=== PATIENT | male | born 1970 | race Caucasian/White ===

== ENCOUNTER → 2019-01-28 | Outpatient (CLI) | payer OTHER ==
[~2019-01-28] MED LIST: AUGM500T34 PO; BACT800T5 PO; DOXY150C PO; IBUP80TA PO; LASI40TA9 PO; NICO21DI3 TD; PERCOCET PO; TYLE325T5 PO
--- NOTE | 2019-01-28 11:24 | REP ---
Clinical: Right hip pain without trauma. Technique: Neutral and frog lateral views of the right hip. Findings: Very subtle spurring along the acetabular margin is appreciated. No further significant arthritic or degenerative changes are identified. No acute fracture dislocation. Surrounding soft tissues are otherwise normal. Impression: Minimal degenerative changes suspected. Electronically Signed by Aaron Elizabeth MD 01/28/2019 11:15 A
== END ==
LOC: M RAD 10:50
PROVIDERS: ATTEND Family Medicine
DX: M25.551 Pain in right hip (principal)

== ENCOUNTER → 2019-02-06 | Outpatient (REF) | payer OTHER, SELFPAY ==
[2019-02-06 19:34] LABS: BASO # 0.1 10^3/uL (0.0-0.2); BASO % 0.5 % (0.0-1.0); EOS # 0.1 10^3/uL (0.0-0.50); EOS % 1.3 % (0.0-3.0); HEMATOCRIT 52.8 % (42.0-52.0); HEMOGLOBIN 16.8 g/dl (13.5-17.5); LYMPH # 3.2 10^3/uL (1.5-4.5); LYMPH % 28.4 % (24.0-44.0); MEAN CORPUSCULAR HEMOGLOBIN 29.9 pg (27.0-33.0); MEAN CORPUSCULAR HGB CONC 31.8 g/dl (32.0-36.5); MONO # 0.8 10^3/uL (0.0-0.8); MONO % 6.8 % (0.0-5.0); NEUTROPHILS % 62.3 % (36.0-66.0); PLATELET COUNT, AUTOMATED 184 10^3/uL (150-450); RED BLOOD COUNT 5.62 10^6/uL (4.30-6.10); WHITE BLOOD COUNT 11.2 10^3/uL (4.0-10.0)
[2019-02-06 19:43] LABS: HEMOGLOBIN A1c 5.6 %
[2019-02-06 19:54] LABS: ALBUMIN 3.5 GM/DL (3.2-5.2); ALT/SGPT 25 U/L (12-78); BILIRUBIN,TOTAL 0.2 MG/DL (0.2-1.0); BLOOD UREA NITROGEN 15 MG/DL (7-18); CALCIUM LEVEL 9.1 MG/DL (8.5-10.1); CARBON DIOXIDE LEVEL 29 MEQ/L (21-32); CHLORIDE LEVEL 107 MEQ/L (98-107); CHOLESTEROL LEVEL 156 MG/DL (<200); CHOLESTEROL RISK RATIO 4.105 (<5); CREATININE FOR GFR 1.18 MG/DL (0.70-1.30); FREE T4 0.98 NG/DL (0.76-1.46); GLOMERULAR FILTRATION RATE > 60.0 (>60); GLUCOSE, FASTING 72 MG/DL (70-100); HDL CHOLESTEROL 38 MG/DL (>40); LDL CHOLESTEROL 102 MG/DL (<100); NON-HDL-C 118 MG/DL; POTASSIUM SERUM 4.9 MEQ/L (3.5-5.1); SODIUM LEVEL 141 MEQ/L (136-145); TOTAL PROTEIN 7.6 GM/DL (6.4-8.2); TRIGLYCERIDES LEVEL 79 MG/DL (<150)
[2019-02-06 19:58] LABS: TOTAL 25(OH) VITAMIN D 13.6 NG/ML (30.0-100.0)
[2019-02-09 00:06] LABS: Lyme Disease IgG/IgM Antibodie <0.91 ISR (0.00-0.90); Lyme Disease IgM Ab Quantitati <0.80 index (0.00-0.79)
== END ==
LOC: M LAB REF 17:14
PROVIDERS: ATTEND Family Medicine
DX: Z13.228 Encounter for screening for other metabolic disorders (principal)

== ENCOUNTER → 2019-06-16 | Outpatient (REF) | payer OTHER ==
[2019-06-16 19:08] LABS: ALBUMIN 3.2 GM/DL (3.2-5.2); ALT/SGPT 13 U/L (12-78); BILIRUBIN,TOTAL 0.4 MG/DL (0.2-1.0); BLOOD UREA NITROGEN 13 MG/DL (7-18); CALCIUM LEVEL 8.7 MG/DL (8.5-10.1); CARBON DIOXIDE LEVEL 25 MEQ/L (21-32); CHLORIDE LEVEL 109 MEQ/L (98-107); CREATININE FOR GFR 1.01 MG/DL (0.70-1.30); GLOMERULAR FILTRATION RATE > 60.0 (>60); GLUCOSE, FASTING 83 MG/DL (70-100); POTASSIUM SERUM 5.3 MEQ/L (3.5-5.1); SODIUM LEVEL 140 MEQ/L (136-145)
[2019-06-16 19:25] LABS: HEMOGLOBIN A1c 5.6 %
== END ==
LOC: M LAB REF 16:25
PROVIDERS: ATTEND Family Medicine
DX: R73.03 Prediabetes (principal)

== ENCOUNTER → 2019-10-31 | Outpatient (REF) | payer OTHER ==
[2019-10-31 13:05] LABS: ALBUMIN 3.2 GM/DL (3.2-5.2); ALT/SGPT 22 U/L (12-78); BILIRUBIN,TOTAL 0.2 MG/DL (0.2-1.0); BLOOD UREA NITROGEN 15 MG/DL (7-18); CALCIUM LEVEL 8.5 MG/DL (8.5-10.1); CARBON DIOXIDE LEVEL 26 MEQ/L (21-32); CHLORIDE LEVEL 108 MEQ/L (98-107); GLOMERULAR FILTRATION RATE > 60.0 (>60); GLUCOSE, FASTING 206 MG/DL (70-100); POTASSIUM SERUM 4.2 MEQ/L (3.5-5.1); SODIUM LEVEL 140 MEQ/L (136-145); TOTAL PROTEIN 6.8 GM/DL (6.4-8.2)
[2019-10-31 17:03] LABS: HEMOGLOBIN A1c 6.1 %
== END ==
LOC: M LAB REF 12:22
PROVIDERS: ATTEND Family Medicine
DX: R73.03 Prediabetes (principal)

== ENCOUNTER 2020-01-23 11:51 | Emergency (ER) | payer OTHER ==
[~2020-01-23] VITALS: Ht 185.4 cm; Wt 181.8 kg
[2020-01-23] MEDS ORDERED: PERCOCET 5MG/325MG TAB PO ONE (14:30)
--- NOTE | 2020-01-23 16:49 | REP ---
LEFT KNEE SERIES: FIVE VIEWS. HISTORY: Pain. FINDINGS: Five views of the left knee demonstrate nonarticular spurring of the superior pole of the left knee. A normal fabella is present. No sunrise view is included. There is no visible fracture or subluxation. IMPRESSION: Nonarticular spurring at the superior pole of the left patella. The patient apparently unable to be positioned for sunrise view. No fracture or subluxation seen. Electronically Signed by Osbaldo Sahu MD 01/23/2020 06:01 P
[2020-01-23 16:50] LABS: BASO # 0.1 10^3/uL (0.0-0.2); BASO % 0.6 % (0.0-1.0); EOS # 0.3 10^3/uL (0.0-0.5); EOS % 2.1 % (0.0-3.0); HEMATOCRIT 46.6 % (42.0-52.0); HEMOGLOBIN 14.8 g/dl (13.5-17.5); LYMPH # 3.1 10^3/uL (1.5-5.0); LYMPH % 19.9 % (24.0-44.0); MEAN CORPUSCULAR HEMOGLOBIN 27.6 pg (27.0-33.0); MEAN CORPUSCULAR HGB CONC 31.8 g/dl (32.0-36.5); MEAN CORPUSCULAR VOLUME 86.9 fl (80.0-96.0); MONO # 0.9 10^3/uL (0.0-0.8); MONO % 5.9 % (0.0-5.0); PLATELET COUNT, AUTOMATED 124 10^3/uL (150-450); RED BLOOD COUNT 5.36 10^6/uL (4.30-6.10); WHITE BLOOD COUNT 15.7 10^3/uL (4.0-10.0)
--- NOTE | 2020-01-23 16:50 | REP ---
LEFT HIP: TWO VIEWS. HISTORY: Pain in the left hip. FINDINGS: There are three metallic pins in the left femoral neck in good position. Femoral head is smooth and rounded and hip joint spaces preserved. Periarticular soft tissues are unremarkable. No erosive changes seen. IMPRESSION: No acute abnormality. Status post orthopedic pinning of the left hip. Electronically Signed by Osbaldo Sahu MD 01/23/2020 06:01 P
[2020-01-23] MEDS ORDERED: ISOVUE-370 76% 100ML VIAL As Ordered ONE (17:03)
--- NOTE | 2020-01-23 17:45 | REPVR ---
PROCEDURE INFORMATION: Exam: CT Angiography Chest With Contrast Exam date and time: 01/23/2020 5:30 PM Age: 49 years old Clinical indication: Chest pain; Additional info: Dvt, SOB, R/O pe TECHNIQUE: Imaging protocol: Computed tomographic angiography of the chest with intravenous contrast. 3D rendering: MIP and/or 3D reconstructed images were created by the technologist. Radiation optimization: All CT scans at this facility use at least one of these dose optimization techniques: automated exposure control; mA and/or kV adjustment per patient size (includes targeted exams where dose is matched to clinical indication); or iterative reconstruction. Contrast material: ISO 370; Contrast volume: 100 ml; Contrast route: IV; COMPARISON: CR Chest, 2 view PA, Lat 05/03/2015 7:40 PM FINDINGS: Pulmonary arteries: Abnormal intraluminal filling defects are present within bilateral distal main pulmonary arteries, intralobar segments and segmental branches of all major bilateral arterial lobar distributions. No saddle embolus. Aorta: No thoracic aortic aneurysm or dissection. Lungs: Pulmonary vascular/interstitial pattern does not suggest active pulmonary edema. No suspicious lung mass or air space process. No central endobronchial lesion. Pleural space: No pleural effusion or pneumothorax. Heart: No cardiac enlargement or interventricular septal deviation to suggest right heart strain. Mediastinum: Hiatal hernia measuring 5 cm is present. Lymph nodes: Small, nonspecific mediastinal nodes are present. Bones/joints: Bony structures show no acute fracture or destructive process. IMPRESSION: 1. Extensive acute pulmonary emboli with bilateral distal main pulmonary artery emboli, and segmental emboli within all major lobar distributions. 2. No evidence of right heart strain or pulmonary infarct. 3. Hiatal hernia measuring 5 cm Electronically signed by: Robert Celaya On 01/23/2020 17:44:45 PM
--- NOTE | 2020-01-23 17:51 | REP ---
LEFT LOWER EXTREMITY DUPLEX DOPPLER VENOUS ULTRASOUND: Real-time compression and duplex Doppler interrogation of left lower extremity deep venous system is performed. There is diffuse thrombus occluding the common femoral vein, superficial femoral vein, and popliteal vein. IMPRESSION: Diffuse occlusive thrombus involving the left common femoral, superficial femoral, and popliteal veins. Electronically Signed by Oziel Blackburn MD 01/24/2020 09:19 A
[2020-01-23] MEDS ORDERED: HEPARIN DRIP 25,000 UNITS in IV 1 EA IV SCH (18:54)
[2020-01-23 18:58] LABS: INR 1.11
[2020-01-23 18:59] LABS: PARTIAL THROMBOPLASTIN TIME 22.9 SECONDS (25.0-38.4)
[2020-01-23] MEDS ORDERED: HEPARIN SOD (PORCINE) 5000UNITS/ML VIAL (J1644 PER 1000UNITS) IV ONE (19:00)
[2020-01-23 19:18] LABS: CK-MB VALUE MASS 1.3 NG/ML (<3.6); MB/CK RELATIVE INDEX 0.36 (< OR =4)
[2020-01-23 19:56] LABS: TROPONIN I 0.1 NG/ML (< 0.10)
[2020-01-23 20:20] VITALS: BP 103/58
[2020-01-23 21:14] LABS: POTASSIUM SERUM 9.8 MEQ/L (3.5-5.1)
--- NOTE | 2020-01-24 07:55 | ECGEPIP ---
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
== END 2020-01-23 20:26 | disposition short-term general hospital (02) ==
LOC: EDBD 11:51 → M ED 11:51
DX: I82.412 Acute embolism and thrombosis of left femoral vein (principal); I82.432 Acute embolism and thrombosis of left popliteal vein; I26.99 Other pulmonary embolism without acute cor pulmonale; K44.9 Diaphragmatic hernia without obstruction or gangrene; M17.12 Unilateral primary osteoarthritis, left knee; M25.552 Pain in left hip; M25.562 Pain in left knee; R06.02 Shortness of breath; E66.01 Morbid (severe) obesity due to excess calories; Z68.43 Body mass index [BMI] 50.0-59.9, adult; Z88.8 Allergy status to other drugs, medicaments and biological substances; Z79.899 Other long term (current) drug therapy
CPT/HCPCS: 71275; 73502; 73564; 80047; 82550; 82553; 85025; 85610; 85730; 93005; 93041; 93971; 96365; 99285; J1644; Q9967

== ENCOUNTER → 2020-02-07 | Outpatient (REF) | payer OTHER ==
[2020-02-07 13:14] LABS: BASO # 0.1 10^3/uL (0.0-0.2); BASO % 0.6 % (0.0-1.0); EOS # 0.3 10^3/uL (0.0-0.5); EOS % 2.6 % (0.0-3.0); HEMOGLOBIN 14.9 g/dl (13.5-17.5); LYMPH # 2.4 10^3/uL (1.5-5.0); LYMPH % 24.5 % (24.0-44.0); MEAN CORPUSCULAR HEMOGLOBIN 28.2 pg (27.0-33.0); MEAN CORPUSCULAR HGB CONC 31.7 g/dl (32.0-36.5); MEAN CORPUSCULAR VOLUME 88.8 fl (80.0-96.0); MONO # 0.6 10^3/uL (0.0-0.8); MONO % 6.1 % (0.0-5.0); NEUTROPHILS # 6.3 10^3/uL (1.5-8.5); NEUTROPHILS % 65.8 % (36.0-66.0); PLATELET COUNT, AUTOMATED 194 10^3/uL (150-450); RED BLOOD COUNT 5.29 10^6/uL (4.30-6.10); WHITE BLOOD COUNT 9.6 10^3/uL (4.0-10.0)
[2020-02-07 13:52] LABS: ALBUMIN 3.1 GM/DL (3.2-5.2); ALT/SGPT 24 U/L (12-78); BILIRUBIN,TOTAL 0.5 MG/DL (0.2-1.0); BLOOD UREA NITROGEN 11 MG/DL (7-18); CALCIUM LEVEL 8.6 MG/DL (8.5-10.1); CARBON DIOXIDE LEVEL 25 MEQ/L (21-32); CHLORIDE LEVEL 109 MEQ/L (98-107); CHOLESTEROL LEVEL 167 MG/DL (<200); CHOLESTEROL RISK RATIO 5.387 (<5); CREATININE FOR GFR 1.25 MG/DL (0.70-1.30); GLOMERULAR FILTRATION RATE > 60.0 (>60); GLUCOSE, FASTING 118 MG/DL (70-100); HDL CHOLESTEROL 31 MG/DL (>40); LDL CHOLESTEROL 111 MG/DL (<100); NON-HDL-C 136 MG/DL; POTASSIUM SERUM 4.2 MEQ/L (3.5-5.1); SODIUM LEVEL 140 MEQ/L (136-145); TOTAL PROTEIN 7.1 GM/DL (6.4-8.2); TRIGLYCERIDES LEVEL 123 MG/DL (<150)
[2020-02-07 14:18] LABS: HEMOGLOBIN A1c 6.5 %
== END ==
LOC: M LAB REF 12:54
PROVIDERS: ATTEND Family Medicine
DX: R73.03 Prediabetes (principal)

== ENCOUNTER → 2020-05-09 | Outpatient (REF) | payer OTHER ==
[~2020-05-09] MED LIST changes: +DOXY100T27 PO; +ELIQ5TAB; +HYDR-3716; +OMEP-221; +VITA50005; +[UNRECOGNIZED DRUG - CODE]
[2020-05-09 17:06] LABS: ALBUMIN 3.5 GM/DL (3.2-5.2); ALT/SGPT 19 U/L (12-78); BILIRUBIN,TOTAL 0.4 MG/DL (0.2-1.0); BLOOD UREA NITROGEN 15 MG/DL (7-18); CALCIUM LEVEL 9.4 MG/DL (8.5-10.1); CARBON DIOXIDE LEVEL 26 MEQ/L (21-32); CHLORIDE LEVEL 108 MEQ/L (98-107); CHOLESTEROL LEVEL 174 MG/DL (<200); CHOLESTEROL RISK RATIO 4.971 (<5); GLOMERULAR FILTRATION RATE > 60.0 (>60); GLUCOSE, FASTING 132 MG/DL (70-100); HDL CHOLESTEROL 35 MG/DL (>40); LDL CHOLESTEROL 115 MG/DL (<100); NON-HDL-C 139 MG/DL; POTASSIUM SERUM 4.3 MEQ/L (3.5-5.1); SODIUM LEVEL 137 MEQ/L (136-145); TOTAL PROTEIN 7.5 GM/DL (6.4-8.2); TRIGLYCERIDES LEVEL 122 MG/DL (<150)
[2020-05-09 17:49] LABS: HEMOGLOBIN A1c 6.4 %
== END ==
LOC: M LAB REF 09:36
PROVIDERS: ATTEND Nurse Practitioner Family
DX: E03.8 Other specified hypothyroidism (principal)

== ENCOUNTER → 2020-05-28 | Outpatient (CLI) | payer OTHER ==
--- NOTE | 2020-05-30 14:02 | SLEEPCENT ---
DATE: 05/28/2020 ORDERED BY: Dr. Sana Butler Nocturnal polysomnography was performed for evaluation of sleep physiology. There was 7 hours and 23 minutes of data reviewed. There was 344 minutes of sleep identified. Sleep latency was short at 5.5 minutes. REM sleep was delayed at 184 minutes. Sleep architecture improved later in the study with application of pressure therapy. Overall sleep efficiency was 78.6%. The electrocardiogram showed a sinus rhythm with a average heart rate of 72 beats per minute. Unifocal ventricular ectopic beats were occasionally seen. EEG showed normal waveforms for wake and sleep. There were 169 respiratory events identified of 10 seconds in duration or greater for an apnea-hypopnea index of 29.5. Having clearly established the presence of obstructive sleep apnea syndrome, testing was stopped shortly before midnight for the application of pressure therapy. The patient was fit with a ResMed Ultra Mirage full-face mask of large size. There was 7 cm of water pressure initially applied to the circuit, and the lights were again extinguished. Sleep architecture improved on pressure therapy, and optimal pressure for the establishment of sleep was 10 cm of water. Remaining measures of sleep physiology were essentially normal. IMPRESSION: Obstructive sleep apnea syndrome (G47.33), apnea-hypopnea index 29.5. RECOMMENDATION: Nightly use of pressure therapy, 10 cm of water. MTDD
== END ==
LOC: M SLEEP 20:00
PROVIDERS: ATTEND Nurse Practitioner Family
DX: G47.33 Obstructive sleep apnea (adult) (pediatric) (principal); R06.83 Snoring

== ENCOUNTER 2020-06-28 01:38 | Emergency (ER) | payer OTHER ==
[~2020-06-28] VITALS: Ht 182.9 cm; Wt 182.4 kg
[~2020-06-28 01:38] MED LIST changes: -DOXY100T27 PO; -ELIQ5TAB; -HYDR-3716; -OMEP-221; -VITA50005; -[UNRECOGNIZED DRUG - CODE]
[2020-06-28] MEDS ORDERED: ELIQ5TAB (02:15)
[2020-06-28] MEDS ORDERED: VITA50005 (02:15)
[2020-06-28] MEDS ORDERED: [UNRECOGNIZED DRUG - CODE] (02:15)
[2020-06-28] MEDS ORDERED: OMEP-221 (02:15)
[2020-06-28] MEDS ORDERED: HYDR-3716 (02:15)
[2020-06-28 02:19] LABS: BASO % 0.4 % (0.0-1.0); EOS # 0.1 10^3/uL (0.0-0.5); EOS % 1.2 % (0.0-3.0); HEMATOCRIT 43.1 % (42.0-52.0); LYMPH # 2.2 10^3/uL (1.5-5.0); LYMPH % 24.5 % (24.0-44.0); MEAN CORPUSCULAR HEMOGLOBIN 26.5 pg (27.0-33.0); MEAN CORPUSCULAR HGB CONC 30.2 g/dl (32.0-36.5); MEAN CORPUSCULAR VOLUME 87.8 fl (80.0-96.0); MONO # 0.5 10^3/uL (0.0-0.8); NEUTROPHILS % 66.9 % (36.0-66.0); RED BLOOD COUNT 4.91 10^6/uL (4.30-6.10)
--- NOTE | 2020-06-28 02:39 | REPVR ---
PROCEDURE INFORMATION: Exam: XR Chest, 1 View Exam date and time: 06/28/2020 2:15 AM Age: 49 years old Clinical indication: Other: Chest pain TECHNIQUE: Imaging protocol: XR of the chest Views: 1 view. COMPARISON: CT ANGIO CHEST 01/23/2020 5:19 PM FINDINGS: Lungs: No focal infiltrates. Pleural space: Unremarkable. No pleural effusion. No pneumothorax. Heart/Mediastinum: Unremarkable. No cardiomegaly. Bones/joints: Unremarkable. Soft tissues: There are generous overlying soft tissues. IMPRESSION: Essentially negative chest. Electronically signed by: Francisco J Wilson On 06/28/2020 02:38:41 AM
[2020-06-28 02:40] LABS: ERYTHROCYTE SEDIMENTATION RATE 14 mm/hr (0-15)
[2020-06-28 03:38] LABS: BLOOD UREA NITROGEN 10 MG/DL (7-18); C REACTIVE PROTEIN QUANTITATIV 3.32 MG/DL (0.00-0.30); CALCIUM LEVEL 7.9 MG/DL (8.5-10.1); CARBON DIOXIDE LEVEL 27 MEQ/L (21-32); CHLORIDE LEVEL 109 MEQ/L (98-107); CREATININE FOR GFR 1.15 MG/DL (0.70-1.30); FREE T4 1.07 NG/DL (0.76-1.46); GLOMERULAR FILTRATION RATE > 60.0 (>60); GLUCOSE, FASTING 142 MG/DL (70-100); NT-PRO BNP 161 PG/ML (<125); POTASSIUM SERUM 4.1 MEQ/L (3.5-5.1); SODIUM LEVEL 141 MEQ/L (136-145)
[2020-06-28] MEDS ORDERED: LASI40TA9 PO (03:48)
[2020-06-28] MEDS ORDERED: DOXY100T27 PO (03:48)
[2020-06-28] MEDS ORDERED: DOXYCYCLINE HYCLATE 100MG TABLET PO ONE (04:00)
[2020-06-28] MEDS ORDERED: FUROSEMIDE 40MG/4ML VIAL (J1940) IV ONE (04:00)
[2020-06-28 04:01] VITALS: BP 124/63
--- NOTE | 2020-06-28 07:32 | ECGEPIP ---
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
== END 2020-06-28 04:11 | disposition home or self-care (01) ==
LOC: M ED 01:38
DX: R22.43 Localized swelling, mass and lump, lower limb, bilateral (principal); L03.90 Cellulitis, unspecified; Z86.718 Personal history of other venous thrombosis and embolism; E66.01 Morbid (severe) obesity due to excess calories; Z79.01 Long term (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s; Z79.899 Other long term (current) drug therapy
CPT/HCPCS: 71045; 80048; 83880; 84439; 84443; 85025; 85652; 86140; 93005; 93041; 94760; 96374; 99285; J1940

== ENCOUNTER 2020-07-08 01:00 | Emergency (ER) | payer OTHER ==
[~2020-07-08] VITALS: Ht 188 cm; Wt 218.2 kg
[~2020-07-08 01:00] MED LIST changes: +DOXY100T27 PO; +ELIQ5TAB; +HYDR-3716; +OMEP-221; +VITA50005; +[UNRECOGNIZED DRUG - CODE]
[2020-07-08 02:15] VITALS: BP 109/61
--- NOTE | 2020-07-08 03:14 | REPVR ---
PROCEDURE INFORMATION: Exam: US Duplex Lower Extremity Veins, Bilateral Exam date and time: 07/08/2020 2:20 AM Age: 49 years old Clinical indication: Pain; Leg, upper and leg, lower; Bilateral; Additional info: Pain, on eliquis for dvt dx 12/2019, ? persisting dvt TECHNIQUE: Imaging protocol: Real-time duplex ultrasound of the extremities with 2-D dewitt scale, color Doppler flow and spectral waveform analysis with image documentation. Complete exam focused on the bilateral lower extremity veins. COMPARISON: US Duplex, Ext,LOWER veins,unilat 2020-01-23 14:48 FINDINGS: Right deep veins: Unremarkable. The common femoral, femoral, proximal profunda femoral and popliteal veins are patent without thrombus. Normal Doppler waveforms. Normal compressibility and/or augmentation response. Right superficial veins: Saphenofemoral junction is patent without thrombus. Left deep veins: Unremarkable. The common femoral, femoral, proximal profunda femoral and popliteal veins are patent without thrombus. Normal Doppler waveforms. Normal compressibility and/or augmentation response. Left superficial veins: Saphenofemoral junction is patent without thrombus. Soft tissues: Soft tissue swelling. IMPRESSION: No evidence of deep vein thrombosis. Electronically signed by: Wero Dickerson On 07/08/2020 03:14:35 AM
[2020-07-08] MEDS ORDERED: DOXYCYCLINE HYCLATE 100MG TABLET PO ONE (03:30)
== END 2020-07-08 03:51 | disposition home or self-care (01) ==
LOC: M ED 01:00
DX: M79.604 Pain in right leg (principal); M79.605 Pain in left leg; I87.2 Venous insufficiency (chronic) (peripheral); Z79.01 Long term (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s; Z79.899 Other long term (current) drug therapy; Z88.8 Allergy status to other drugs, medicaments and biological substances

== ENCOUNTER 2020-10-16 02:30 | Emergency (ER) | payer OTHER ==
[~2020-10-16] VITALS: Ht 185.4 cm; Wt 254.7 kg
--- OUTSIDE RECORDS SUMMARY | 2020-10-16 02:35 | CCD | Continuity of Care Document ---
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 AUTM [phone] Problems Description No Information Available Social History Type Date Description Comments Sex Unknown Tobacco Use Reviewed: 05/14/20 Patient is a current smoker, smokes every day 09/02 ppd Smoking Status Reviewed: 08/02/20 Patient is a current smoker, smokes every day 09/02 ppd Allergies, Adverse Reactions, Alerts Active Allergies Reaction Severity Comments Date Soma Itching 05/14/2020 Medications Active Medications SIG Qnty Indications Ordering Provide r Date CPAP Device 10cm Sana [place] 06/04/2020 Eliquis 5mg Tablets 1 tab by mouth twice a day Unknown Levothyroxine Sodium 1 tab by mouth every day U nknown Omeprazole 40mg Capsules DR 1 cap by mouth every day Unknown SM Nicotine 2mg Lozenges Dissolve One Lozenge Slowly In Mouth Every 2 Hours as Needed Unknown Hydrocodone-Acetaminophen 7.5-325mg Tablets Take One Tablet By Mouth Every 6 Hours Maximum Daily Dose 4 Unknown Immunizations Description No Information Available Vital Signs Date Vital Result Comment 08/02/2020 9:59am BP Systolic 130 mmHg BP Diastolic 80 mmHg Heart Rate 122 /min O2 % BldC Oximetry 97 % Body Temperature 96.8 F Height 73 inches 6'1" Weight 487.00 lb PT States BMI (Body Mass Index) 64.2 kg/m2 [place] Body Weight 184 lb Weight 220.903 kg BSA (Body Surface Area) 3.14 m2 05/14/2020 12:45pm BP Systolic 142 mmHg BP Diastolic 88 mmHg Heart Rate 102 /min O2 % BldC Oximetry 97 % Body Temperature 96.8 F Height 73 inches 6'1" Weight 487.38 lb BMI (Body Mass Index) 64.3 kg/m2 [place] Body Weight 184 lb Neck Circumference in inches 21.5 [place] Score 23 Weight 221.073 kg BSA (Body Surface Area) 3.14 m2 Results Description No Information Available Procedures Description No Information Available Medical Devices Description No Information Available Encounters Type Date Location Provider Dx Diagnosis Office Visit 05/14/2020 1:15p [facility] Pulmonary/Thoracic Jose Butler N.P. R06.83 Snoring R40.0 Somnolence Assessments Date Code Description Provider 08/02/2020 G47.33 Obstructive sleep apnea (adult) (pediatric) Sana Butler N.P. 05/14/2020 R06.83 Snoring Sana Butler N .PKadie 05/14/2020 R40.0 Somnolence Sana Butler, N .P. Plan of Treatment Future Appointment(s):* 10/03/2020 10:45 am - Sana Butler, N.P. at [facility] Pulmonary/Thoracic 08/02/2020 - Sana Butler, N.P.* G47.33 Obstructive sleep apnea (adult) (pediatric) * * Comments:* 1. No changes were made to the CPAP pressure at today's visit. 2. The patient is aware to call with any problems related to CPAP use, snoring through the mask or return of daytime sleepiness. * Follow up:* 1. Follow up in 6-8 weeks to reassess CPAP compliance or sooner should problems develop. Functional Status Functional Condition Comment Date Status Independent with all ADL's Activ e Mental Status Description No Information Available Referrals Refer to Reason for Referral Status Appt Date [facility] Sleep [facility] auth sleep [id number] Closed Sleep Lab [address], [place] [address] [phone]
--- OUTSIDE RECORDS SUMMARY | 2020-10-16 02:35 | CCD ---
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 Name Role Phone Lucy Jensen Unavailable Unavailable Allergies Code Code System Name Reaction Severity Status Onset 20430129 RxNorm Soma Active 03/14/2019 NKDA Medications Name Status Start Date Stop Date doxycycline monohydrate 100 mg capsule TAKE ONE CAPSULE BY MOUTH TWICE A DAY Active N ot available Eliquis 5 mg tablet Active Not availabl e ergocalciferol (vitamin D2) 1,250 mcg (5 0,000 unit) capsule TAKE 1 CAPSULE BY MOUTH ONCE A WEEK Active Not available furosemide 40 mg tablet Active Not avai lable hydrocodone 7.5 mg-acetaminophen 325 mg tablet TAKE ONE TABLET BY MOUTH EVERY 6 HOURS MAXIMUM DAILY DOSE 4 TABLETS Active Not available nicotine (polacrilex) 4 mg gum CHEW ONE PIECE OF GUM BUCCALLY EVERY 2 HOURS Active Not available omeprazole 40 mg capsule,delayed release Active Not available Problems Name Status Onset Date Source Snoring Active 12/09/2018 History Endocrine/metabolic Screening Active 12/09/2018 Hi story Congenital Pes Planus of Left Foot Active 12/09/2018 History Congenital Pes Planus of Right Foot Active 12/09/2018 History Pain of Left Hip Joint Active 12/09/2018 History Pain in Right Hip Joint Active 01/06/2019 History Obesity Active 03/14/2019 History Prediabetes Active 03/14/2019 History Gastroesophageal Reflux Disease Active 08/11/2019 History Localized Edema Active 11/10/2019 History Clinical Finding Active 11/10/2019 History Obstructive Sleep Apnea Syndrome Active 02/05/2020 History Acute Cor Pulmonale Active 02/05/2020 History Hypothyroidism Active 02/15/2020 History Body Mass Index 30+ - Obesity Active 02/15/2020 Hi story Procedure by Method Active 02/15/2020 History Idiopathic Osteoarthritis Active 02/20/2020 Histor y Vitamin D Deficiency Active 06/20/2020 Morbid Obesity Active 06/20/2020 Thromboembolism of Vein Active 06/20/2020 Cigarette Smoker Active 06/20/2020 Procedures Notes: Pin in hip-15years old Results Lab Results None recorded. Past Encounters 07/19/2020 Stasis Dermatitis; Pain in Right Hip Joint John Martinez MD: [address] [place] [address], Ph. 06/20/2020 Obstructive Sleep Apnea Syndrome; Pain in Right Hip Joint; Hypothyroidism; Gastroesophageal Reflux Disease; Localized Edema; Thromboembolism of Vein; Morbid Obesity; Cigarette Smoker; Prediabetes; Vitamin D Deficiency John Martinez MD: [address] [place] [phone], Ph. Social History Tobacco Smoking Status Light Tobacco Smoker (1 PPW) Vaccine List None recorded. Plan of Care Reminders Provider Appointments None recorded. Lab None recorded. Referral None recorded. Procedures None recorded. Surgeries None recorded. Imaging None recorded. Vitals 07/19/2020 09:20AM ESTABLISHED [id number] Height Weight BMI Blood Pressure 74 in 467 lbs 60 kg/m2 111/61 mm[Hg] 06/20/2020 09:00AM ESTABLISHED [id number] Height Weight BMI Blood Pressure 74 in 467 lbs 60 kg/m2 130/84 mm[Hg] 02/15/2020 Height Weight Blood Pressure 74 in 462 lbs 2.08 oz 103/71 mm[Hg] 02/05/2020 Height Weight Blood Pressure 74 in 467 lbs 6.4 oz 121/77 mm[Hg] 01/15/2020 Height Weight Blood Pressure 74 in 466 lbs 9.6 oz 120/84 mm[Hg] 11/20/2019 Weight 470 lbs 11/10/2019 Height Weight Blood Pressure 74 in 469 lbs 4 oz 144/78 mm[Hg] 10/20/2019 Weight 454 lbs 7.04 oz 08/11/2019 Height Weight Blood Pressure 74 in 407 lbs 2.08 oz 92/63 mm[Hg] 06/16/2019 Height Weight Blood Pressure 74 in 402 lbs 4 oz 102/68 mm[Hg] 03/14/2019 Height Weight Blood Pressure 74 in 401 lbs 104/64 mm[Hg] 02/06/2019 Height Weight 74 in 384 lbs 01/06/2019 Height Weight Blood Pressure 73 in 380 lbs 4 oz 114/70 mm[Hg] 12/09/2018 Height Weight Blood Pressure 73 in 343 lbs 6.08 oz 125/77 mm[Hg]
--- OUTSIDE RECORDS SUMMARY | 2020-10-16 02:35 | CCD ---
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 Name Role Phone [facility] 114 [phone] Allergies Code Code System Name Reaction Severity Status Onset 20430129 RxNorm Soma Active 03/14/2019 NKDA Medications Name Status Start Date Stop Date doxycycline monohydrate 100 mg capsule TAKE ONE CAPSULE BY MOUTH TWICE A DAY Completed 10/07/2019 Eliquis 5 mg tablet TAKE ONE TABLET BY MOUTH TWICE A DAY Active No t available ergocalciferol (vitamin D2) 1,250 mcg (5 0,000 unit) capsule TAKE 1 CAPSULE BY MOUTH ONCE A WEEK Active Not available furosemide 40 mg tablet Completed 08/06/20 hydrocodone 7.5 mg-acetaminophen 325 mg tablet Active Not available nicotine (polacrilex) 4 mg [...] Results Lab Results None recorded. Past Encounters 08/06/2020 Acute Cor Pulmonale John Martinez MD: [address] [place] [phone], Ph. 07/19/2020 Stasis Dermatitis; Pain in Right Hip Joint John Martinez MD: [address] [place] [phone], Ph. 06/20/2020 Obstructive Sleep Apnea Syndrome; Pain in Right Hip Joint; Hypothyroidism; Gastroesophageal Reflux Disease; Localized Edema; Thromboembolism of Vein; Morbid Obesity; Cigarette Smoker; Prediabetes; Vitamin D Deficiency John Martinez MD: [address] [place] [phone], Ph. Social History Tobacco Smoking Status Light Tobacco Smoker (1 PPW) Vaccine List Notes: Pt declined flu shot Plan of Care Reminders Provider Appointments None recorded. Lab None recorded. Referral None recorded. Procedures None recorded. Surgeries None recorded. Imaging None recorded. Vitals 08/06/2020 08:40AM ESTABLISHED [id number] Height Weight BMI Blood Pressure 74 in 501 lbs 2 oz 64.3 kg/m2 119/76 mm[Hg] 07/19/2020 09:20AM ESTABLISHED [id number] Height Weight BMI Blood Pressure 74 in 467 lbs 60 kg/m2 111/61 mm[Hg] 06/20/2020 09:00AM ESTABLISHED [id number] Height Weight BMI Blood Pressure 74 in [...]
--- OUTSIDE RECORDS SUMMARY | 2020-10-16 02:36 | CCD ---
Author Author [facility] Organization [facility] Address Unknown Phone Unavailable Care Team Providers Care Development Intern Name Role Phone Taye AMEZCUA Unavailable Unavailable Anika Martinez MD Unavailable Unavailable Anika Martinez MD Unavailable Unavailable Anika Martinez MD Unavailable Unavailable Anika Martinez MD Unavailable Unavailable Anika Martinez MD Unavailable Unavailable Anika Martinez MD Unavailable Unavailable Anika Martinez MD Unavailable Unavailable Anika Martinez MD Unavailable Unavailable Anika Martinez MD Unavailable Unavailable Anika Martinez MD Unavailable Unavailable Anika Martinez MD Unavailable Unavailable Anika Martinez MD Unavailable Unavailable Anika Martinez MD Unavailable Unavailable Anika Martinez MD Unavailable Unavailable Anika Martinez MD Unavailable Unavailable Anika Martinez MD Unavailable Unavailable Anika Martinez MD Unavailable Unavailable Anika Martinez MD Unavailable Unavailable Anika Martinez MD Unavailable Unavailable Anika Martinez MD Unavailable Unavailable Anika Martinez MD Unavailable Unavailable Anika Martinez MD Unavailable Unavailable Anika Martinez MD Unavailable Unavailable Anika Martinez MD Unavailable Unavailable Anika Martinez MD Unavailable Unavailable Anika Martinez MD Unavailable Unavailable Anika Martinez MD Unavailable Unavailable Anika Martinez MD Unavailable Unavailable Anika Martinez MD Unavailable Unavailable Anika Martinez MD Unavailable Unavailable Anika Martinez MD Unavailable Unavailable Anika Martinez MD Unavailable Unavailable Anika Martinez MD Unavailable Unavailable Anika Martinez MD Unavailable Unavailable Anika Martinez MD Unavailable Unavailable Anika Martinez MD Unavailable Unavailable Anika Martinez MD Unavailable Unavailable Anika Martinez MD Unavailable Unavailable Anika Martinez MD Unavailable Unavailable Anika Martinez MD Unavailable Unavailable Anika Martinez MD Unavailable Unavailable Anika Martinez MD Unavailable Unavailable Anika Martinez MD Unavailable Unavailable Anika Martinez MD Unavailable Unavailable Anika Martinez MD Unavailable Unavailable Anika Martinez MD Unavailable Unavailable Anika Martinez MD Unavailable Unavailable Anika Martinez MD Unavailable Unavailable Anika Martinez MD Unavailable Unavailable Anika Martinez MD Unavailable Unavailable Anika Martinez MD Unavailable Unavailable Anika Martinez MD Unavailable Unavailable Anika Martinez MD Unavailable Unavailable Anika Martinez MD Unavailable Unavailable Anika Martinez MD Unavailable Unavailable Anika Martinez MD Unavailable Unavailable Anika Martinez MD Unavailable Unavailable Anika Martinez MD Unavailable Unavailable Anika Martinez MD Unavailable Unavailable Anika Martinez MD Unavailable Unavailable Anika Martinez MD Unavailable Unavailable Anika Martinez MD Unavailable Unavailable Anika Martinez MD Unavailable Unavailable Anika Martinez MD Unavailable Unavailable Anika Martinez MD Unavailable Unavailable Anika Martinez MD Unavailable Unavailable Anika Martinez MD Unavailable Unavailable Anika Martinez MD Unavailable Unavailable Anika Martinez MD Unavailable Unavailable Anika Martinez MD Unavailable Unavailable Anika Martinez MD Unavailable Unavailable Anika Martinez MD Unavailable Unavailable Anika Martinez MD Unavailable Unavailable Anika Martinez MD Unavailable Unavailable Anika Martinez MD Unavailable Unavailable Anika Martinez MD Unavailable Unavailable Anika Martinez MD Unavailable Unavailable Anika Martinez MD Unavailable Unavailable Anika Martinez MD Unavailable Unavailable Anika Martinez MD Unavailable Unavailable Anika Martinez MD Unavailable Unavailable Anika Martinez MD Unavailable Unavailable Anika Martinez MD Unavailable Unavailable Anika Martinez MD Unavailable Unavailable Anika Martinez MD Unavailable Unavailable Anika Martinez MD Unavailable Unavailable Anika Martinez MD Unavailable Unavailable Anika Martinez MD Unavailable Unavailable Anika Martinez MD Unavailable Unavailable OUEIDA, ZAHER Unavailable Unavailable OUEIDA, ZAHER Unavailable Unavailable OUEIDA, ZAHER Unavailable Unavailable OUEIDA, ZAHER Unavailable Unavailable OUEIDA, ZAHER Unavailable Unavailable Anika FRY MD Unavailable Unavailable Anika FRY MD Unavailable Unavailable Anika FRY MD Unavailable Unavailable Elizabeth STEPHENS MD Unavailable Unavailable Elizabeth STEPHENS MD Unavailable Unavailable Elizabeth STEPHENS MD Unavailable Unavailable Elizabeth STEPHENS MD Unavailable Unavailable Elizabeth STEPHENS MD Unavailable Unavailable Elizabeth STEPHENS MD Unavailable Unavailable STEPHENS, Elizabeth TURPIN MD Unavailable Unavailable STEPHENS, Elizabeth TURPIN MD Unavailable Unavailable STEPHENS, Elizabeth TURPIN MD Unavailable Unavailable STEPHENS, Elizabeth TURPIN MD Unavailable Unavailable STEPHENS, Elizabeth TURPIN MD Unavailable Unavailable STEPHENS, Elizabeth TURPIN MD Unavailable Unavailable STEPHENS, Elizabeth TURPIN MD Unavailable Unavailable STEPHENS, Elizabeth TURPIN MD Unavailable Unavailable STEPHENS, Elizabeth TURPIN MD Unavailable Unavailable STEPHENS, Elizabeth TURPIN MD Unavailable Unavailable STEPHENS, Elizabeth TURPIN MD Unavailable Unavailable STEPHENS, Elizabeth TURPIN MD Unavailable Unavailable STEPHENS, Elizabeth TURPIN MD Unavailable Unavailable STEPHENS, Elizabeth TURPIN MD Unavailable Unavailable STEPHENS, Elizabeth TURPIN MD Unavailable Unavailable STEPHENS, Elizabeth TURPIN MD Unavailable Unavailable STEPHENS, Elizabeth TURPIN MD Unavailable Unavailable STEPHENS, Elizabeth TURPIN MD Unavailable Unavailable STEPHENS, Elizabeth TURPIN MD Unavailable Unavailable STEPHENS, Elizabeth TURPIN MD Unavailable Unavailable STEPHENS, Elizabeth TURPIN MD Unavailable Unavailable STEPHENS, Elizabeth TURPIN MD Unavailable Unavailable STEPHENS, Elizabeth TURPIN MD Unavailable Unavailable STEPHENS, Elizabeth TURPIN MD Unavailable Unavailable STEPHENS, Elizabeth TURPIN MD Unavailable Unavailable STEPHENS, Elizabeth TURPIN MD Unavailable Unavailable STEPHENS, Elizabeth TURPIN MD Unavailable Unavailable STEPHENS, Elizabeth TURPIN MD Unavailable Unavailable STEPHENS, Elizabeth TURPIN MD Unavailable Unavailable STEPHENS, Elizabeth TURPIN MD Unavailable Unavailable STEPHENS, Elizabeth TURPIN MD Unavailable Unavailable STEPHENS, Elizabeth TURPIN MD Unavailable Unavailable STEPHENS, Elizabeth TURPIN MD Unavailable Unavailable STEPHENS, Elizabeth TURPIN MD Unavailable Unavailable STEPHENS, Elizabeth TURPIN MD Unavailable Unavailable STEPHENS, Elizabeth TURPIN MD Unavailable Unavailable STEPHENS, Elizabeth TURPIN MD Unavailable Unavailable STEPHENS, Elizabeth TURPIN MD Unavailable Unavailable STEPHENS, Elizabeth TURPIN MD Unavailable Unavailable STEPHENS, Elizabeth TURPIN MD Unavailable Unavailable STEPHENS, Elizabeth TURPIN MD Unavailable Unavailable STEPHENS, Elizabeth TURPIN MD Unavailable Unavailable STEPHENS, Elizabeth TURPIN MD Unavailable Unavailable STEPHENS, Elizabeth TURPIN MD Unavailable Unavailable STEPHENS, Elizabeth TURPIN MD Unavailable Unavailable STEPHENS, Elizabeth TURPIN MD Unavailable Unavailable STEPHENS, Elizabeth TURPIN MD Unavailable Unavailable STEPHENS, Elizabeth TURPIN MD Unavailable Unavailable STEPHENS, Elizabeth TURPIN MD Unavailable Unavailable STEPHENS, Elizabeth TURPIN MD Unavailable Unavailable STEPHENS, Eliazbeth TURPIN MD Unavailable Unavailable STEPHENS, Elizabeth TURPIN MD Unavailable Unavailable STEPHENS, Elizabeth TURPIN MD Unavailable Unavailable STEPHENS, Elizabeth TURPIN MD Unavailable Unavailable STEPHENS, Elizabeth TURPIN MD Unavailable Unavailable STEPHENS, Elizabeth TURPIN MD Unavailable Unavailable STEPHENS, Elizabeth TURPIN MD Unavailable Unavailable STEPHENS, Elizabeth TURPIN MD Unavailable Unavailable STEPHENS, Elizabeth TURPIN MD Unavailable Unavailable STEPHENS, Elizabeth TURPIN MD Unavailable Unavailable STEPHENS, Elizabeth TURPIN MD Unavailable Unavailable STEPHENS, Elizabeth TURPIN MD Unavailable Unavailable STEPHENS, Elizabeth TURPIN MD Unavailable Unavailable STEPHENS, Elizabeth TURPIN MD Unavailable Unavailable STEPHENS, Elizabeth TURPIN MD Unavailable Unavailable STEPHENS, Elizabeth TURPIN MD Unavailable Unavailable STEPHENS, Elizabeth TURPIN MD Unavailable Unavailable STEPHENS, Elizabeth TURPIN MD Unavailable Unavailable STEPHENS, Elizabeth TURPIN MD Unavailable Unavailable STEPHENS, Elizabeth TURPIN MD Unavailable Unavailable STEPHENS, Elizabeth TURPIN MD Unavailable Unavailable STEPHENS, Elizabeth TURPIN MD Unavailable Unavailable STEPHENS, Elizabeth TURPIN MD Unavailable Unavailable STEPHENS, Elizabeth TURPIN MD Unavailable Unavailable STEPHENS, Elizabeth TURPIN MD Unavailable Unavailable STEPHENS, Elizabeth TURPIN MD Unavailable Unavailable STEPHENS, Elizabeth TURPIN MD Unavailable Unavailable STEPHENS, Elizabeth TURPIN MD Unavailable Unavailable STEPHENS, Elizabeth TURPIN MD Unavailable Unavailable STEPHENS, Elizabeth TURPIN MD Unavailable Unavailable STEPHENS, Elizabeth TURPIN MD Unavailable Unavailable STEPHENS, Elizabeth TURPIN MD Unavailable Unavailable STEPHENS, Elizabeth TURPIN MD Unavailable Unavailable STEPHENS, Elizabeth TURPIN MD Unavailable Unavailable STEPHENS, Elizabeth TURPIN MD Unavailable Unavailable STEPHENS, Elizabeth TURPIN MD Unavailable Unavailable STEPHENS, Elizabeth TURPIN MD Unavailable Unavailable STEPHENS, Elizabeth TURPIN MD Unavailable Unavailable STEPHENS, Elizabeth TURPIN MD Unavailable Unavailable STEPHENS, Elizabeth TURPIN MD Unavailable Unavailable STEPHENS, Elizabeth TURPIN MD Unavailable Unavailable STEPHENS, Elizabeth TURPIN MD Unavailable Unavailable STEPHENS, Elizabeth TURPIN MD Unavailable Unavailable STEPHENS, Elizabeth TURPIN MD Unavailable Unavailable STEPHENS, Elizabeth TURPIN MD Unavailable Unavailable STEPHENS, Elizabeth TURPIN MD Unavailable Unavailable STEPHENS, Elizabeth TURPIN MD Unavailable Unavailable STEPHENS, Elizabeth TURPIN MD Unavailable Unavailable STEPHENS, Elizabeth TURPIN MD Unavailable Unavailable STEPHENS, Elizabeth TURPIN MD Unavailable Unavailable STEPHENS, Elizabeth TURPIN MD Unavailable Unavailable STEPHENS, Elizabeth TURPIN MD Unavailable Unavailable STEPHENS, Elizabeth TURPIN MD Unavailable Unavailable STEPHENS, Elizabeth TURPIN MD Unavailable Unavailable STEPHENS, Elizabeth TURPIN MD Unavailable Unavailable STEPHENS, Elizabeth TURPIN MD Unavailable Unavailable STEPHENS, Elizabeth TURPIN MD Unavailable Unavailable STEPHENS, Elizabeth TURPIN MD Unavailable Unavailable STEPHENS, Elizabeth TURPIN MD Unavailable Unavailable ROSE, JAVIER ANNA ROLLS MILL OPERATOR-C Unavailable Unavailable ROSE, JAVIER ANNA ROLLS MILL OPERATOR-C Unavailable Unavailable ROSE, JAVIER ANNA ROLLS MILL OPERATOR-C Unavailable Unavailable ROSE, JAVIER ANNA ROLLS MILL OPERATOR-C Unavailable Unavailable ROSE, JAVIER ANNA ROLLS MILL OPERATOR-C Unavailable Unavailable ROSE, JAVIER ANNA ROLLS MILL OPERATOR-C Unavailable Unavailable ROSE, JAVIER ANNA ROLLS MILL OPERATOR-C Unavailable Unavailable ROSE, JAVIER ANNA ROLLS MILL OPERATOR-C Unavailable Unavailable ROSE, JAVIER ANNA ROLLS MILL OPERATOR-C Unavailable Unavailable ROSE, JAVIER ANNA ROLLS MILL OPERATOR-C Unavailable Unavailable ROSE, JAVIER ANNA ROLLS MILL OPERATOR-C Unavailable Unavailable ROSE, JAVIER ANNA ROLLS MILL OPERATOR-C Unavailable Unavailable ROSE, JAVIER ANNA ROLLS MILL OPERATOR-C Unavailable Unavailable ROSE, JAVIER ANNA ROLLS MILL OPERATOR-C Unavailable Unavailable ROSE, JAVIER ANNA ROLLS MILL OPERATOR-C Unavailable Unavailable ROSE, JAVIER ANNA ROLLS MILL OPERATOR-C Unavailable Unavailable Jose Guerrier MD Unavailable Unavailable Jose Guerrier MD Unavailable Unavailable Jose Guerrier MD Unavailable Unavailable Jose Guerrier MD Unavailable Unavailable Jose Guerrier MD Unavailable Unavailable Jose Guerrier MD Unavailable Unavailable Jose Guerrier MD Unavailable Unavailable Jose Guerrier MD Unavailable Unavailable Jose Guerrier MD Unavailable Unavailable Jose Guerrier MD Unavailable Unavailable Jose Guerrier MD Unavailable Unavailable Jose Guerrier MD Unavailable Unavailable Jose Guerrier MD Unavailable Unavailable Jose Guerrier MD Unavailable Unavailable Jose Guerrier MD Unavailable Unavailable Jose Guerrier MD Unavailable Unavailable Jose Guerrier MD Unavailable Unavailable Jose Guerrier MD Unavailable Unavailable Jose Guerrier MD Unavailable Unavailable Jose Guerrier MD Unavailable Unavailable Jose Guerrier MD Unavailable Unavailable Jose Guerrier MD Unavailable Unavailable Jose Guerrier MD Unavailable Unavailable Jose Guerrier MD Unavailable Unavailable Jose Guerrier MD Unavailable Unavailable Jose Guerrier MD Unavailable Unavailable Jose Guerrier MD Unavailable Unavailable Jose Guerrier MD Unavailable Unavailable Jose Guerrier MD Unavailable Unavailable Jose Guerrier MD Unavailable Unavailable Jose Guerrier MD Unavailable Unavailable Jose Guerrier MD Unavailable Unavailable Jose Guerrier MD Unavailable Unavailable Jose Guerrier MD Unavailable Unavailable Jose Guerrier MD Unavailable Unavailable Jose Guerrier MD Unavailable Unavailable Jose Guerrier MD Unavailable Unavailable Jose Guerrier MD Unavailable Unavailable Jose Guerrier MD Unavailable Unavailable Jose Guerrier MD Unavailable Unavailable Jose Guerrier MD Unavailable Unavailable Jose Guerrier MD Unavailable Unavailable Jose Guerrier MD Unavailable Unavailable Jose Guerrier MD Unavailable Unavailable Jose Guerrier MD Unavailable Unavailable Jose Guerrier MD Unavailable Unavailable Jose Guerrier MD Unavailable Unavailable Jose Guerrier MD Unavailable Unavailable Jose Guerrier MD Unavailable Unavailable Jose Guerrier MD Unavailable Unavailable Jose Guerrier MD Unavailable Unavailable Jose Guerrier MD Unavailable Unavailable Jose Guerrier MD Unavailable Unavailable Jose Guerrier MD Unavailable Unavailable Jose Guerrier MD Unavailable Unavailable Jose Guerrier MD Unavailable Unavailable Jose Guerrier MD Unavailable Unavailable Jose Guerrier MD Unavailable Unavailable Jose Guerrier MD Unavailable Unavailable Jose Guerrier MD Unavailable Unavailable Elizabeth BROOKS MD Unavailable Unavailable Elizabeth BROOKS MD Unavailable Unavailable Elizabeth BROOKS MD Unavailable Unavailable Elizabeth BROOKS MD Unavailable Unavailable Elizabeth BROOKS MD Unavailable Unavailable Elizabeth BROOKS MD Unavailable Unavailable Elizabeth BROOKS MD Unavailable Unavailable Elizabeth BROOKS MD Unavailable Unavailable Elizabeth BROOKS MD Unavailable Unavailable Elizabeth BROOKS MD Unavailable Unavailable Elizabeth BROOKS MD Unavailable Unavailable Elizabeth BROOKS MD Unavailable Unavailable TODDElizabeth LEUNG MD Unavailable Unavailable Elizabeth BROOKS MD Unavailable Unavailable Elizabeth BROOKS MD Unavailable Unavailable Elizabeth BROOKS MD Unavailable Unavailable Elizabeth BROOKS MD Unavailable Unavailable Elizabeth BROOKS MD Unavailable Unavailable Elizabeth BROOKS MD Unavailable Unavailable Elizabeth BROOKS MD Unavailable Unavailable Elizabeth BROOKS MD Unavailable Unavailable Elizabeth BROOKS MD Unavailable Unavailable Elizabeth BROOKS MD Unavailable Unavailable Elizabeth BROOKS MD Unavailable Unavailable Elizabeth BROOKS MD Unavailable Unavailable Elizabeth BROOKS MD Unavailable Unavailable Elizabeth BROOKS MD Unavailable Unavailable Elizabeth BROOKS MD Unavailable Unavailable Elizabeth BROOKS MD Unavailable Unavailable Elizabeth BROOKS MD Unavailable Unavailable Elizabeth BROOKS MD Unavailable Unavailable Elizabeth BROOKS MD Unavailable Unavailable Elizabeth BROOKS MD Unavailable Unavailable Elizabeth BROOKS MD Unavailable Unavailable Elizabeth BROOKS MD Unavailable Unavailable Elizabeth BROOKS MD Unavailable Unavailable Elizabeth BROOKS MD Unavailable Unavailable Elizabeth BROOKS MD Unavailable Unavailable Elizabeth BROOKS MD Unavailable Unavailable Elizabeth BROOKS MD Unavailable Unavailable Elizabeth BROOKS MD Unavailable Unavailable Elizabeth BROOKS MD Unavailable Unavailable Elizabeth BROOKS MD Unavailable Unavailable Elizabeth BROOKS MD Unavailable Unavailable Elizabeth BROOKS MD Unavailable Unavailable Elizabeth BROOKS MD Unavailable Unavailable Elizabeth BROOKS MD Unavailable Unavailable Elizabeth BROOKS MD Unavailable Unavailable Elizabeth BROOKS MD Unavailable Unavailable Elizabeth BROOKS MD Unavailable Unavailable Elizabeth BROOKS MD Unavailable Unavailable Elizabeth BROOKS MD Unavailable Unavailable Elizabeth BROOKS MD Unavailable Unavailable Elizabeth BROOKS MD Unavailable Unavailable Elizabeth BROOKS MD Unavailable Unavailable Elizabeth BROOKS MD Unavailable Unavailable TODDElizabeth LEUNG MD Unavailable Unavailable Elizabeth BROOKS MD Unavailable Unavailable Elizabeth BROOKS MD Unavailable Unavailable Elizabeth BROOKS MD Unavailable Unavailable Elizabeth BROOKS MD Unavailable Unavailable Elizabeth BROOKS MD Unavailable Unavailable Elizabeth BROOKS MD Unavailable Unavailable Elizabeth BROOKS MD Unavailable Unavailable Elizabeth BROOKS MD Unavailable Unavailable Elizabeth BROOKS MD Unavailable Unavailable Elizabeth BROOKS MD Unavailable Unavailable Elizabeth BROOKS MD Unavailable Unavailable Elizabeth BROOKS MD Unavailable Unavailable Elizabeth BROOKS MD Unavailable Unavailable Elizabeth BROOKS MD Unavailable Unavailable Elizabeth BROOKS MD Unavailable Unavailable Elizabeth BROOKS MD Unavailable Unavailable Elizabeth BROOKS MD Unavailable Unavailable Elizabeth BROOKS MD Unavailable Unavailable Elizabeth BROOKS MD Unavailable Unavailable Elizabeth BROOKS MD Unavailable Unavailable Elizabeth BROOKS MD Unavailable Unavailable Elizabeth BROOKS MD Unavailable Unavailable Elizabeth BROOKS MD Unavailable Unavailable Elizabeth BROOKS MD Unavailable Unavailable Elizabeth BROOKS MD Unavailable Unavailable Elizabeth BROOKS MD Unavailable Unavailable Dominik PEREZ MD Unavailable Unavailable Dominik PEREZ MD Unavailable Unavailable Dominik PEREZ MD Unavailable Unavailable Dominik PEREZ MD Unavailable Unavailable Dominik PEREZ MD Unavailable Unavailable Dominik PEREZ MD Unavailable Unavailable Dominik PEREZ MD Unavailable Unavailable Dominik PEREZ MD Unavailable Unavailable Dominik PEREZ MD Unavailable Unavailable Dominik PEREZ MD Unavailable Unavailable Dominik PEREZ MD Unavailable Unavailable Dominik PEREZ MD Unavailable Unavailable Dominik PEREZ MD Unavailable Unavailable Dominik PEREZ MD Unavailable Unavailable Dominik PEREZ MD Unavailable Unavailable Dominik PEREZ MD Unavailable Unavailable Dominik PEREZ MD Unavailable Unavailable Dominik PEREZ MD Unavailable Unavailable Dominik PEREZ MD Unavailable Unavailable Dominik PEREZ MD Unavailable Unavailable Dominik PEREZ MD Unavailable Unavailable Dominik PEREZ MD Unavailable Unavailable Dominik PEREZ MD Unavailable Unavailable Dominik PEREZ MD Unavailable Unavailable Dominik PEREZ MD Unavailable Unavailable Dominik PEREZ MD Unavailable Unavailable Dominik PEREZ MD Unavailable Unavailable Dominik PEREZ MD Unavailable Unavailable Dominik PEREZ MD Unavailable Unavailable Dominik PEREZ MD Unavailable Unavailable Dominik PEREZ MD Unavailable Unavailable Dominik PEREZ MD Unavailable Unavailable Dominik PEREZ MD Unavailable Unavailable Dominik PEREZ MD Unavailable Unavailable Dominik PEREZ MD Unavailable Unavailable Dominik PEREZ MD Unavailable Unavailable Dominik PEREZ MD Unavailable Unavailable Dominik PEREZ MD Unavailable Unavailable Dominik PEREZ MD Unavailable Unavailable Dominik PEREZ MD Unavailable Unavailable Dominik PEREZ MD Unavailable Unavailable Dominik PEREZ MD Unavailable Unavailable Dominik PEREZ MD Unavailable Unavailable Dominik PEREZ MD Unavailable Unavailable Dominik PEREZ MD Unavailable Unavailable Dominik PEREZ MD Unavailable Unavailable Dominik PEREZ MD Unavailable Unavailable Dominik PEREZ MD Unavailable Unavailable Dominik PEREZ MD Unavailable Unavailable Dominik PEREZ MD Unavailable Unavailable Dominik PEREZ MD Unavailable Unavailable Dominik PEREZ MD Unavailable Unavailable Dominik PEREZ MD Unavailable Unavailable Dominik PEREZ MD Unavailable Unavailable Dominik PEREZ MD Unavailable Unavailable Dominik PEREZ MD Unavailable Unavailable Dominik PEREZ MD Unavailable Unavailable Dominik PEREZ MD Unavailable Unavailable Dominik PEREZ MD Unavailable Unavailable Dominik PEREZ MD Unavailable Unavailable Dominik PEREZ MD Unavailable Unavailable Dominik PEREZ MD Unavailable Unavailable Dominik PEREZ MD Unavailable Unavailable Dominik PEREZ MD Unavailable Unavailable Dominik PEREZ MD Unavailable Unavailable Dominik PEREZ MD Unavailable Unavailable Obradovic, Vladan Unavailable Unavailable Obradovic, Vladan Unavailable Unavailable Obradovic, Vladan Unavailable Unavailable Obradovic, Vladan Unavailable Unavailable Obradovic, Vladan Unavailable Unavailable Obradovic, Vladan Unavailable Unavailable Obradovic, Vladan Unavailable Unavailable Obradovic, Vladan Unavailable Unavailable Obradovic, Vladan Unavailable Unavailable Obradovic, Vladan Unavailable Unavailable Obradovic, Vladan Unavailable Unavailable Obradovic, Vladan Unavailable Unavailable Obradovic, Vladan Unavailable Unavailable Obradovic, Vladan Unavailable Unavailable Obradovic, Vladan Unavailable Unavailable Obradovic, Vladan Unavailable Unavailable Obradovic, Vladan Unavailable Unavailable Obradovic, Vladan Unavailable Unavailable Obradovic, Vladan Unavailable Unavailable Obradovic, Vladan Unavailable Unavailable Obradovic, Vladan Unavailable Unavailable Obradovic, Vladan Unavailable Unavailable Obradovic, Vladan Unavailable Unavailable Obradovic, Vladan Unavailable Unavailable Obradovic, Vladan Unavailable Unavailable Obradovic, Vladan Unavailable Unavailable Obradovic, Vladan Unavailable Unavailable Obradovic, Vladan Unavailable Unavailable Obradovic, Vladan Unavailable Unavailable Obradovic, Vladan Unavailable Unavailable Obradovic, Vladan Unavailable Unavailable Obradovic, Vladan Unavailable Unavailable Obradovic, Vladan Unavailable Unavailable Obradovic, Vladan Unavailable Unavailable Obradovic, Vladan Unavailable Unavailable Obradovic, Vladan Unavailable Unavailable Obradovic, Vladan Unavailable Unavailable Obradovic, Vladan Unavailable Unavailable Obradovic, Vladan Unavailable Unavailable Obradovic, Vladan Unavailable Unavailable Obradovic, Vladan Unavailable Unavailable Obradovic, Vladan Unavailable Unavailable Obradovic, Vladan Unavailable Unavailable Obradovic, Vladan Unavailable Unavailable Obradovic, Vladan Unavailable Unavailable Obradovic, Vladan Unavailable Unavailable Mikey, Lucy ROLLS MILL OPERATOR ROLLS MILL OPERATOR Unavailable Unavailable Mikey, A Lucy ROLLS MILL OPERATOR Unavailable Unavailable Mikey, A Lucy ROLLS MILL OPERATOR Unavailable Unavailable Mikey, A Lucy ROLLS MILL OPERATOR Unavailable Unavailable Mikey, A Lucy ROLLS MILL OPERATOR Unavailable Unavailable Mikey, A Lucy ROLLS MILL OPERATOR Unavailable Unavailable Mikey, A Lucy ROLLS MILL OPERATOR Unavailable Unavailable Mikey, A Lucy ROLLS MILL OPERATOR Unavailable Unavailable Mikey, A Lucy ROLLS MILL OPERATOR Unavailable Unavailable Mikey, A Lucy ROLLS MILL OPERATOR Unavailable Unavailable Mikey, A Lucy ROLLS MILL OPERATOR Unavailable Unavailable Mikey, A Lucy ROLLS MILL OPERATOR Unavailable Unavailable Mikey, A Lucy ROLLS MILL OPERATOR Unavailable Unavailable Mikey, A Lucy ROLLS MILL OPERATOR Unavailable Unavailable Mikey, A Lucy ROLLS MILL OPERATOR Unavailable Unavailable Mikey, A Lucy ROLLS MILL OPERATOR Unavailable Unavailable Mikey, A Lucy ROLLS MILL OPERATOR Unavailable Unavailable Mikey, A Lucy ROLLS MILL OPERATOR Unavailable Unavailable Mikey, A Lucy ROLLS MILL OPERATOR Unavailable Unavailable Mikey, A Lucy ROLLS MILL OPERATOR Unavailable Unavailable Mikey, A Lucy ROLLS MILL OPERATOR Unavailable Unavailable Mikey, A Lucy ROLLS MILL OPERATOR Unavailable Unavailable Mikey, A Lucy ROLLS MILL OPERATOR Unavailable Unavailable Mikey, A Lucy ROLLS MILL OPERATOR Unavailable Unavailable Mikey, A Lucy ROLLS MILL OPERATOR Unavailable Unavailable Mikey, A Lucy ROLLS MILL OPERATOR Unavailable Unavailable Mikey, A Lucy ROLLS MILL OPERATOR Unavailable Unavailable Mikey, A Lucy ROLLS MILL OPERATOR Unavailable Unavailable Mikey, A Lucy ROLLS MILL OPERATOR Unavailable Unavailable Re-disclosure Warning The records that you are about to access may contain information from federally-assisted alcohol or drug abuse programs. If such information is present, then the following federally mandated warning applies: This information has been disclosed to you from records protected by federal confidentiality rules (42 CFR part 2). The federal rules prohibit you from making any further disclosure of this information unless further disclosure is expressly permitted by the written consent of the person to whom it pertains or as otherwise permitted by 42 CFR part 2. A general authorization for the release of medical or other information is NOT sufficient for this purpose. The Federal rules restrict any use of the information to criminally investigate or prosecute any alcohol or drug abuse patient.The records that you are about to access may contain highly sensitive health information, the redisclosure of which is protected by Article 27-F of the [facility] Public Health law. If you continue you may have access to information: Regarding HIV / AIDS; Provided by facilities licensed or operated by the [facility] Office of Mental Health; or Provided by the [facility] Office for People With Developmental Disabilities. If such information is present, then the following [facility] mandated warning applies: This information has been disclosed to you from confidential records which are protected by state law. State law prohibits you from making any further disclosure of this information without the specific written consent of the person to whom it pertains, or as otherwise permitted by law. Any unauthorized further disclosure in violation of state law may result in a fine or care home sentence or both. A general authorization for the release of medical or other information is NOT sufficient authorization for further disc losure. Allergies and Adverse Reactions Type Description Substance Reaction Status Data Source(s ) Soma Soma Soma active NETSMART ([facility]) Drug Class NO KNOWN ALLERGIES NO KNOWN ALLERGIES [facility] DRUG INGREDI CARISOPRODOL CARISOPRODOL [facility] Propensity to adverse reactions CARISOPRODOL Carisoprodol Hives High Facial Swelling High Active [facility] High High Encounters Encounter Providers Location Date Indications Data Source(s ) John Martinez MD: [address] [place] [phone], Ph. Attender: John Martinez MD [facility] Medical 08/06/2020 12:00:00 AM EST [facility] ([facility]) John Martinez MD: [address] [place] [phone], Ph. Attender: John Martinez MD [facility] Medical 07/19/2020 12:00:00 AM EST [facility] ([facility]) John Martinez MD: [address] [place] [phone], Ph. Attender: John Martinez MD [facility] Medical 07/19/2020 12:00:00 AM EST [facility] ([facility]) Outpatient [address] [place] [address]-Mobile Integration Team 07/18/2020 12:00:00 AM EST [facility] ([facility]) Patient admitted. John Martinez MD: [address] [place] [phone], Ph. Attender: John Martinez MD [facility] Medical 06/20/2020 12:00:00 AM EDT [facility] ([facility]) John Martinez MD: [address] [place] [phone], Ph. Attender: John Martinez MD [facility] Medical 06/20/2020 12:00:00 AM EDT [facility] ([facility]) John Martinez MD: [address] [place] [phone], Ph. Attender: John Martinez MD [facility] Medical 06/20/2020 12:00:00 AM EDT [facility] ([facility]) Outpatient Attender: DAKOTAH SAMUELS 06/19/2020 03:20:00 P M EDT [facility] Health Outpatient Attender: DAKOTAH CLAIRE FP 05/21/2020 08:17:00 A M EDT [facility] Health Outpatient Attender: DAKOTAH CLAIRE FP 05/19/2020 04:18:01 P M EDT [facility] Health Outpatient Attender: Lucy CLAIRE FP 05/19/2020 04:1 8:01 PM EDT [facility] Outpatient Attender: ANNA ROSE Adair/Nuria/Jim/Taye miller 05/14/2020 01:15:00 PM EDT [facility] Out[facility] Attender: Lucy CLAIRE FP 05/13/2020 11:5 8:02 AM EDT [facility] Health Outpatient Attender: DAKOTAH CLAIRE FP 05/08/2020 12:28:01 P M EDT [facility] Health Outpatient Attender: DAKOTAH CLAIRE FP 03/14/2020 09:12:00 A M EDT [facility] Health Outpatient Attender: DAKOTAH MCCORMACKP FP 03/12/2020 02:37:00 P M EDT [facility] Health Outpatient Attender: DAKOTAH CLAIRE FP 03/08/2020 09:07:02 A M EDT [facility] Health Outpatient Attender: DAKOTAH CLAIRE FP 02/21/2020 03:28:08 P M EDT [facility] Health Outpatient Attender: DAKOTAH CLAIRE FP 02/16/2020 09:04:01 A M EDT [facility] Health Outpatient Attender: Lucy CLAIRE FP 02/15/2020 09:5 7:00 AM EDT [facility] Health Outpatient Attender: DAKOTAH MCCORMACKP FP 02/15/2020 08:36:01 A M EDT [facility] Health Outpatient Attender: DAKOTAH CLAIRE FP 02/15/2020 07:50:00 A M EDT [facility] Outpatient Attender: Lucy CLAIRE FP 02/08/2020 10:1 0:01 AM EDT [facility] Health Outpatient Attender: Lucy CLAIRE FP 02/08/2020 08:5 4:03 AM EDT [facility] Health Outpatient Attender: DAKOTAH CLAIRE FP 02/08/2020 08:54:02 A M EDT [facility] Outpatient Referrer: DYANA STEPHENS MD 02/08/2020 05:55:00 AM EDT [facility] Outpatient Attender: DAKOTAH CLAIRE FP 02/07/2020 08:20:01 A M EDT [facility] Outpatient Attender: DAKOTAH SAMUELS 02/06/2020 01:48:01 P M EDT [facility] Outpatient Attender: DAKOTAH SAMUELS 02/05/2020 02:36:00 P M EDT [facility] Outpatient Attender: Lucy SAMUELS 02/05/2020 02:3 5:01 PM EDT [facility] Outpatient Attender: DAKOTAH SAMUELS 02/02/2020 02:43:00 P M EDT [facility] Outpatient Attender: Lucy SAMUELS 01/31/2020 07:2 3:02 AM EDT [facility] 01/30/2020 01:00:00 AM EDT - 020 09:21:39 AM EDT [facility]) Outpatient Attender: Lucy SAMUELS 01/28/2020 10:1 0:01 PM EDT [facility] Outpatient Attender: Lucy SAMUELS 01/25/2020 11:4 1:03 AM EDT [facility] Inpatient Attender: HARLEY Bro er: WANDA FRY MDAttender: MAYCO AMEZCUAAdmitter: HARLEY TORRESReferrer: WANDA FRY MDConsultant: DYANA PEREZ MD [id number] 01/23/2020 12:00:00 AM EDT - 01/27/2020 04:57:00 PM EDT Other pulmonary embolism without acute cor pulmonale [facility] Other pulmonary embolism without acute c or pulmonale Patient discharged. Outpatient Attender: DAKOTAH SAMUELS 01/18/2020 11:38:00 A M EDT [facility] Outpatient Attender: Lucy SAMUELS 01/15/2020 03:1 9:01 PM EDT [facility] Outpatient Attender: DAKOTAH SAMUELS 01/15/2020 01:41:00 P M EDT [facility] Outpatient Attender: DAKOTAH SAMUELS 01/08/2020 02:48:[address] [facility] Outpatient Attender: ORTEGA BROOKS MD 01/08/2020 09:47:02 A [facility] Health Outpatient Attender: ORTEGA BROOKS MD 12/20/2019 01:05:[address] [facility] Outpatient Attender: ORTEGA BROOKS MD 11/27/2019 11:35:[address] [facility] Outpatient Attender: ORTEGA BROOKS MD 11/24/2019 09:49:[address] [facility] Outpatient Attender: ORTEGA BROOKS MD 11/22/2019 08:01:01 A [facility] Outpatient Attender: ORTEGA BROOKS MD 11/21/2019 10:27:[address] [facility] Outpatient Attender: ORTEGA BROOKS MD 11/20/2019 01:04:[address] [facility] Outpatient Attender: ORTEGA BROOKS MD 11/16/2019 01:46:[address] [facility] Outpatient Attender: ORTEGA BROOKS MD 11/10/2019 09:22:[address] [facility] Outpatient Attender: ORTEGA BROOKS MD 11/10/2019 09:18:[address] [facility] Outpatient Attender: ORTEGA BROOKS MD 11/10/2019 09:18:02 A [facility] Outpatient Attender: ORTEGA BROOKS MD 11/10/2019 09:18:[address] [facility] Outpatient Attender: ORTEGA BROOKS MD 11/10/2019 08:42:[address] [facility] Outpatient Attender: ORTEGA BROOKS MD 11/09/2019 11:20:[address] [facility] Outpatient Attender: ORTEGA BROOKS MD 10/31/2019 12:38:02 P [facility] Outpatient Attender: ORTEGA BROOKS MD 10/31/2019 09:48:01 A [facility] Inpatient Attender: Tracey TalaveraAdmitter: Tracey stack [email or web address] 10/31/2019 09:29:47 AM EST [facility] Outpatient Attender: ORTEGA BROOKS MD 10/31/2019 07:39:01 A [facility] Outpatient Attender: ORTEGA BROOKS MD 10/31/2019 07:38:01 A [facility] Outpatient Attender: ORTEGA BROOKS MD FP 10/30/2019 01:42:01 P [facility] Outpatient Attender: ORTEGA BROOKS MD 10/25/2019 07:55:01 A [facility] Outpatient Attender: ORTEGA BROOKS MD 10/20/2019 04:30:00 P [facility] Outpatient Attender: ORTEGA BROOKS MD 10/20/2019 04:29:00 P [facility] Outpatient Attender: ORTEGA BROOKS MD 10/20/2019 04:28:00 P [facility] Outpatient Attender: ORTEGA BROOKS MD 10/20/2019 01:56:01 P [facility] Outpatient Attender: ORTEGA BROOKS MD 10/20/2019 12:54:01 P [facility] Outpatient Attender: ORTEGA BROOKS MD 10/20/2019 12:42:00 P [facility] Outpatient Attender: ORTEGA BROOKS MD 10/20/2019 12:41:00 P [facility] Outpatient Attender: ORTEGA BROOKS MD 10/20/2019 12:40:00 P [facility] Outpatient Attender: ORTEGA BROOKS MD 10/20/2019 12:39:01 P [facility] Outpatient Attender: Himanshu Guerrier MDAdmitter: Himanshu Guerrier MD E [email or web address] 10/06/2019 02:08:17 PM [facility] 11/06/2019 01:34:00 PM [facility] Patient discharged. Outpatient Attender: ORTEGA BROOKS MD 09/25/2019 03:29:03 P [facility] Outpatient Attender: ORTEGA BROOKS MD 09/24/2019 10:08:59 A [facility] Outpatient Attender: ORTEGA BROOKS MD 09/20/2019 02:46:02 P M EST [facility] Outpatient Attender: ORTEGA SAMUELS 08/24/2019 08:35:00 A M EST [facility] Medications Medication Brand Name Start Date Product Form Dose Route Admi nistrative Instructions Pharmacy Instructions Status Indications Reaction Description Data Source(s) 7.5-325 mg 10/04/2020 12:00:00 AM EST tablet 60 TAKE 1 TABLET BY MOUTH EVERY 6 HOURS MAXIMUM DAILY DOSE = 4 TAKE 1 TABLET BY MOUTH EVERY 6 HOURS MAX IMUM DAILY DOSE = 4 SOLD: 10/05/2020 [facility] 7.5-325 mg 09/13/2020 12:00:00 AM EST tablet 60 TAKE ONE TABLET BY MOUTH EVERY 6 HOURS MAXIMUM DAILY DOSE = 4 TAKE ONE TABLET BY MOUTH EVERY 6 HOURS MAXIMUM DAILY DOSE = 4 SOLD: 09/17/2020 [facility] 7.5-325 mg 08/26/2020 12:00:00 AM EST tablet 60 TAKE ONE TABLET BY MOUTH EVERY 6 HOURS MAXIMUM DAILY DOSE = 4 TABLETS TAKE ONE TABLET BY MOUTH EVERY 6 HOURS MAXIMUM DAILY DOSE = 4 TABLETS SOLD: 08/28/2020 [facility] 7.5-325 mg 08/09/2020 12:00:00 AM EST tablet 60 TAKE ONE TABLET BY MOUTH EVERY 6 HOURS MAXIMUM DAILY DOSE = 4 TABLETS TAKE ONE TABLET BY MOUTH EVERY 6 HOURS MAXIMUM DAILY DOSE = 4 TABLETS SOLD: 08/11/2020 [facility] 7.5-325 mg 07/22/2020 12:00:00 AM EST tablet 60 TAKE ONE TABLET BY MOUTH EVERY 6 HOURS MAXIMUM DAILY DOSE = 4 TAKE ONE TABLET BY MOUTH EVERY 6 HOURS MAXIMUM DAILY DOSE = 4 SOLD: 07/24/2020 [facility] 7.5-325 mg 07/09/2020 12:00:00 AM EST tablet 30 TAKE ONE TABLET BY MOUTH EVERY 6 HOURS MAXIMUM DAILY DOSE = 4 TABLETS TAKE ONE TABLET BY MOUTH EVERY 6 HOURS MAXIMUM DAILY DOSE = 4 TABLETS SOLD: 07/11/2020 [facility] 40 mg 06/28/2020 12:00:00 AM EDT tablet 14 TAKE ONE TABLET BY MOUTH EVERY DAY TAKE ONE TABLET BY MOUTH EVERY DAY SOLD: 06/29/2020 [facility] 100 mg 06/28/2020 12:00:00 AM EDT capsule 14 TAKE ONE CAPSULE BY MOUTH TWICE A DAY TAKE ONE CAPSULE BY MOUTH TWICE A DAY SOLD: 06/29/2020 [facility] 5 mg 06/24/2020 12:00:00 AM EDT tablet 60 TAKE ONE TABLET BY MOUTH TWICE A DAY TAKE ONE TABLET BY MOUTH TWICE A DAY SOLD: 09/02/2020 [facility] 40 mg 06/24/2020 12:00:00 AM EDT capsule,delayed release (DR/EC) 30 TAKE ONE CAPSULE BY MOUTH EVERY DAY TAKE ONE CAPSULE BY MOUTH EVERY DAY SOLD: 10/01/2020 [facility] 40 mg 06/24/2020 12:00:00 AM EDT capsule,delayed release (DR/EC) 30 TAKE ONE CAPSULE BY MOUTH EVERY DAY TAKE ONE CAPSULE BY MOUTH EVERY DAY SOLD: 06/29/2020 [facility] 5 mg 06/24/2020 12:00:00 AM EDT tablet 60 TAKE ONE TABLET BY MOUTH TWICE A DAY TAKE ONE TABLET BY MOUTH TWICE A DAY SOLD: 07/31/2020 [facility] 5 mg 06/24/2020 12:00:00 AM EDT tablet 60 TAKE ONE TABLET BY MOUTH TWICE A DAY TAKE ONE TABLET BY MOUTH TWICE A DAY SOLD: 06/29/2020 [facility] 40 mg 06/24/2020 12:00:00 AM EDT capsule,delayed release (DR/EC) 30 TAKE ONE CAPSULE BY MOUTH EVERY DAY TAKE ONE CAPSULE BY MOUTH EVERY DAY SOLD: 08/26/2020 [facility] 1,250 mcg (50,000 unit) 06/21/2020 12:00:00 AM EDT capsule 12 TAKE 1 CAPSULE BY MOUTH ONCE A WEEK TAKE 1 CAPSULE BY MOUTH ONCE A WEEK SOLD: 06/21/2020 [facility] 4 mg 06/20/2020 12:00:00 AM EDT gum 100 CHEW ONE PIECE OF GUM BUCCALLY EVERY 2 HOURS CHEW ONE PIECE OF GUM BUCCALLY EVERY 2 HOURS SOLD: 06/21/2020 [facility] 7.5-325 mg 06/20/2020 12:00:00 AM EDT tablet 28 TAKE ONE TABLET BY MOUTH EVERY 6 HOURS MAXIMUM DAILY DOSE = 4 TAKE ONE TABLET BY MOUTH EVERY 6 HOURS MAXIMUM DAILY DOSE = 4 SOLD: 06/21/2020 [facility] CPAP 06/04/2020 12:00:00 AM EDT active MEDENT ([facility], ) Levothyroxine Levothyroxine 02/20/2020 01:00:00 AM EDT 0 {mcg} completed NETSMART ([facility]) Nicotine Mini 2 MG Nicotine Mini 02/20/2020 01:00:00 AM EDT 0 {a sd} completed [facility]SMART ([facility]) Tylenol Tylenol 02/20/2020 01:00:00 AM EDT 0 {mg} compl eted NETSMART ([facility]) Eliquis 5 MG Eliquis 02/20/2020 01:00:00 AM EDT co mpleted NETSMART ([facility]) 5 mg 02/15/2020 12:00:00 AM EDT tablet 60 TAKE ONE TABLET BY MOUTH TWICE A DAY TAKE ONE TABLET BY MOUTH TWICE A DAY SOLD: 04/29/2020 [facility] 5 mg 02/15/2020 12:00:00 AM EDT tablet 60 TAKE ONE TABLET BY MOUTH TWICE A DAY TAKE ONE TABLET BY MOUTH TWICE A DAY SOLD: 05/29/2020 [facility] 5 mg 02/15/2020 12:00:00 AM EDT tablet 60 TAKE ONE TABLET BY MOUTH TWICE A DAY TAKE ONE TABLET BY MOUTH TWICE A DAY SOLD: 10/01/2020 [facility] 5 mg 02/15/2020 12:00:00 AM EDT tablet 60 TAKE ONE TABLET BY MOUTH TWICE A DAY TAKE ONE TABLET BY MOUTH TWICE A DAY SOLD: 03/29/2020 [facility] 100 mcg 02/15/2020 12:00:00 AM EDT tablet 30 TAKE ONE TABLET BY MOUTH EVERY DAY TAKE ONE TABLET BY MOUTH EVERY DAY SOLD: 03/15/2020 [facility] 100 mcg 02/15/2020 12:00:00 AM EDT tablet 30 TAKE ONE TABLET BY MOUTH EVERY DAY TAKE ONE TABLET BY MOUTH EVERY DAY SOLD: 04/18/2020 [facility] 100 mcg 02/15/2020 12:00:00 AM EDT tablet 30 TAKE ONE TABLET BY MOUTH EVERY DAY TAKE ONE TABLET BY MOUTH EVERY DAY SOLD: 02/16/2020 [facility] 5 mg 02/15/2020 12:00:00 AM EDT tablet 60 TAKE ONE TABLET BY MOUTH TWICE A DAY TAKE ONE TABLET BY MOUTH TWICE A DAY SOLD: 02/16/2020 [facility] apixaban 5 MG Oral Tablet Apixaban 5 MG Oral Tablet (E liquis) Apixaban 5 MG Oral Tablet (Eliquis) 02/07/2020 12:00:00 AM EDT 5 mg Oral a borted Take 1 tablet by mouth Two Times Daily After finishing the 10mg loading dose course. [facility] 2 mg 02/06/2020 12:00:00 AM EDT lozenge 144 DISSOLVE ONE LOZENGE SLOWLY IN MOUTH EVERY 2 HOURS NEEDED DISSOLVE ONE LOZENGE SLOWLY IN MOUTH ALBAN RY 2 HOURS NEEDED SOLD: 02/07/2020 [facility] apixaban 5 MG Oral Tablet Apixaban 5 MG Oral Tablet (E liquis) Apixaban 5 MG Oral Tablet (Eliquis) 02/03/2020 12:00:00 AM EDT 5 mg Oral a borted Take 1 tablet by mouth Two Times Daily After finishing the 10mg loading dose course. [facility] Lortab 5-325 MG Lortab 01/30/2020 01:00:00 AM EDT completed NETSMART ([facility]) Omeprazole 40 MG Omeprazole 01/30/2020 01:00:00 AM EDT completed NETSMART ([facility] ) Colace Colace 01/30/2020 01:00:00 AM EDT 100.0 {mg} com pleted NETSMART ([facility]) Eliquis 5 MG Eliquis 01/30/2020 01:00:00 AM EDT co mpleted NETSMART ([facility]) apixaban 5 MG Oral Tablet apixaban (ELIQUIS) tablet 10 mg apixaban (ELIQUIS) tablet 10 mg 01/27/2020 09:00:00 PM EDT 10 mg Oral activ e 10 mg, Oral, 2 Times Daily, First dose on 01/27/20 at 2100, For 7 days [facility] Medication administered onsite Acetaminophen 325 MG / Hydrocodone Smith trate 5 MG Oral Tablet HYDROcodone- acetaminophen (LORTAB) 5-325 MG per tablet 1 tablet HYDROcodone-acetaminophen (LORTAB) 5-325 MG per tablet 1 tablet 01/27/2020 01:06:12 PM EDT 1 {tbl} Oral active 1 tablet, Oral, Every 6 hours PRN, Moderate Pain (Pain Scale Score 4-6), Starting 01/27/20 at 1306, For 3 days
Maximum daily dose of acetaminophen is 3,000 mg from all sources in 24 hours.
[facility] Medication administered onsite apixaban 5 MG Oral Tablet apixaban (ELIQUIS) tablet 10 mg apixaban (ELIQUIS) tablet 10 mg 01/27/2020 12:00:00 PM EDT 10 mg Oral compl eted 10 mg, Oral, Once, 01/27/20 at 1200, For 1 dose [facility] Medication administered onsite apixaban 5 MG Oral Tablet Apixaban 5 MG Oral Tablet (E liquis) Apixaban 5 MG Oral Tablet (Eliquis) 01/27/2020 12:00:00 AM EDT 5 mg Oral a borted Take 1 tablet by mouth Two Times Daily [facility] apixaban 5 MG Oral Tablet Apixaban 5 MG Oral Tablet (E liquis) Apixaban 5 MG Oral Tablet (Eliquis) 01/27/2020 12:00:00 AM EDT 5 mg Oral a borted Take 1 tablet by mouth Two Times Daily After finishing the 10mg loading dose course. [facility] apixaban 5 MG Oral Tablet Apixaban 5 MG Oral Tablet (E LIQUIS) Apixaban 5 MG Oral Tablet (ELIQUIS) 01/27/2020 12:00:00 AM EDT 10 mg Oral a borted Take 2 tablets by mouth Two Times Daily for 7 days [facility] Acetaminophen 325 MG / Hydrocodone Smith trate 5 MG Oral Tablet HYDROcodone- Acetaminophen 5-325 MG Oral Tablet (LORTAB) HYDROcodone-Acetaminophen 5-325 MG Oral Tablet (LORTAB) 01/27/2020 12:00:00 AM EDT 1 {tbl} Oral active Take 1 tablet by mouth every 6 (six) hours as needed for up to 3 days, Max Daily Dose: 4 tablets [facility] apixaban 5 MG Oral Tablet Apixaban 5 MG Oral Tablet (E LIQUIS) Apixaban 5 MG Oral Tablet (ELIQUIS) 01/27/2020 12:00:00 AM EDT 5 mg Oral a borted Take 1 tablet by mouth Two Times Daily [facility] apixaban 5 MG Oral Tablet Apixaban 5 MG Oral Tablet (E LIQUIS) Apixaban 5 MG Oral Tablet (ELIQUIS) 01/27/2020 12:00:00 AM EDT 5 mg Oral a borted Take 1 tablet by mouth Two Times Daily [facility] Acetaminophen 325 MG / Hydrocodone Smith trate 5 MG Oral Tablet HYDROcodone- Acetaminophen 5-325 MG Oral Tablet (LORTAB) HYDROcodone-Acetaminophen 5-325 MG Oral Tablet (LORTAB) 01/27/2020 12:00:00 AM EDT 1 {tbl} Oral aborted Take 1 tablet by mouth every 6 (six) hours as needed for up to 3 days, Max Daily Dose: 4 tablets [facility] apixaban 5 MG Oral Tablet Apixaban 5 MG Oral Tablet (E LIQUIS) Apixaban 5 MG Oral Tablet (ELIQUIS) 01/27/2020 12:00:00 AM EDT 5 mg Oral a ctive Take 1 tablet by mouth Two Times Daily [facility] apixaban 5 MG Oral Tablet Apixaban 5 MG Oral Tablet (E LIQUIS) Apixaban 5 MG Oral Tablet (ELIQUIS) 01/27/2020 12:00:00 AM EDT 5 mg Oral a borted Take 1 tablet by mouth Two Times Daily [facility] 1 ML heparin sodium, porcine 1000 UNT/ML Injection heparin (porcine) 1000 units/mL injection 5,200 Units heparin (porcine) 1000 units/mL injectio n 5,200 Units 01/26/2020 12:15:00 PM EDT 5200 U Intravenous comple charmaine 5,200 Units, Intravenous, Once, Wed01/26/20 at 1215, For 1 dose
Adult High Dose / With Bolus Protocol.
[facility] Medication administered onsite sodium chloride 0.9 % bolus 1,000 mL 7814-8255-91 01/26/2020 12:15: 00 AM EDT 1000 mL Intravenous completed 1,000 mL , Intravenous, Once, Wed01/26/20 at 0015, For 1 dose [facility] Medication administered onsite 1 ML heparin sodium, porcine 1000 UNT/ML Injection heparin (porcine) 1000 units/mL injection 5,227 Units heparin (porcine) 1000 units/mL injectio n 5,227 Units 01/25/2020 09:30:00 PM EDT 5227 U Intravenous comple charmaine 5,227 Units, Intravenous, Once, Dina 01/25/20 at 2130, For 1 dose
Adult High Dose / With Bolus Protocol.
[facility] Medication administered onsite pantoprazole 40 MG Delayed Release Oral Tablet pantoprazole (PROTONIX) EC tablet 40 mg pantoprazole (PROTONIX) EC tablet 40 mg 01/25/2020 09:00:00 AM E DT 40 mg Oral active 40 mg, Ora l, Daily Standard, First dose on Dina 01/25/20 at 0900, For 30 days
Do not crush or chew
[facility] Medication administered onsite sodium chloride 0.9 % bolus 1,000 mL 01/25/2020 06:30: 00 AM EDT 1000 mL Intravenous completed 1,000 mL , Intravenous, Once, Dina 01/25/20 at 0630, For 1 dose [facility] Medication administered onsite sodium chloride 0.9 % bolus 1,000 mL 01/24/2020 10:30: 00 PM EDT 1000 mL Intravenous completed 1,000 mL , Intravenous, Once, Wed01/24/20 at 2230, For 1 dose [facility] Medication administered onsite 1 ML heparin sodium, porcine 1000 UNT/ML Injection heparin (porcine) 1000 units/mL injection 5,300 Units heparin (porcine) 1000 units/mL injectio n 5,300 Units 01/24/2020 10:15:00 PM EDT 5300 U Intravenous comple charmaine 5,300 Units, Intravenous, Once, Wed01/24/20 at 2215, For 1 dose
Adult High Dose / With Bolus Protocol.
[facility] Medication administered onsite NaCl infusion 0.9 % 01/24/2020 04:15:00 PM EDT Intravenous completed at 100 mL/hr, Intrav enous, Continuous, Starting Wed01/24/20 at 1615, For 24 hours [facility] Medication administered onsite 500 ML heparin sodium, porcine 50 UNT/ML Injection heparin in NaCl 0.45 % infusion 50 units/mL heparin in NaCl 0.45 % infusion 50 units/mL 01/24/2020 03:00:00 PM EDT 3450 U/h Intravenous aborted 3,450 Units/hr (69 mL/hr), Intravenous, at 69 mL/hr, Continuous, Starting Wed01/24/20 at 1500, For 30 days
Adult High Dose / With Bolus Protocol.
[facility] Medication administered onsite 1 ML heparin sodium, porcine 1000 UNT/ML Injection heparin (porcine) 1000 units/mL injection 5,275 Units heparin (porcine) 1000 units/mL injectio n 5,275 Units 01/24/2020 02:45:00 PM EDT 5275 U Intravenous comple charmaine 5,275 Units, Intravenous, Once, Wed01/24/20 at 1500, For 1 dose
Adult High Dose / With Bolus Protocol.
[facility] Medication administered onsite Docusate Sodium 100 MG Oral Capsule docusate sodium (C OLACE) capsule 100 mg docusate sodium (COLACE) capsule 100 mg 01/24/2020 09:00:00 AM EDT 100 mg Oral active 100 mg, Oral, 2 Times Daily, First dose on Wed01/24/20 at 0900, For 30 days [facility] Medication administered onsite 1 ML heparin sodium, porcine 1000 UNT/ML Injection heparin (porcine) 1000 units/mL injection 5,295 Units heparin (porcine) 1000 units/mL injectio n 5,295 Units 01/24/2020 06:45:00 AM EDT 5295 U Intravenous comple charmaine 5,295 Units, Intravenous, Once, Wed01/24/20 at 0645, For 1 dose
Adult High Dose / With Bolus Protocol.
[facility] Medication administered onsite calcium gluconate in NaCl 0.9 % infusion 1 g/50 mL [id number] 01/24/2020 02:30:00 AM EDT 1 g Intravenous completed 1 g, Intravenous, Administer over 1 Hours, Once, Wed01/24/20 at 0230, For 1 dose
1 g calcium gluconate = 90 mg elemental Ca++ = 4.5 mEq Ca++. Dosed on mg of calcium gluconate.
[facility] Medication administered onsite Acetaminophen 325 MG Oral Tablet acetaminophen (TYLENO L) tablet 975 mg acetaminophen (TYLENOL) tablet 975 mg 01/23/2020 10:45:00 PM EDT 97 5 mg Oral completed 975 mg, Oral, O nce, Wed01/23/20 at 2245, For 1 dose
Maximum daily dose of acetaminophen is 3,000 mg from all sources in 24 hours.
[facility] Medication administered onsite 500 ML heparin sodium, porcine 50 UNT/ML Injection heparin in NaCl 0.45 % infusion 50 units/mL heparin in NaCl 0.45 % infusion 50 units/mL 01/23/2020 10:15:00 PM EDT 2150 U/h Intravenous aborted 2,150 Units/hr (43 mL/hr), Intravenous, at 43 mL/hr, Continuous, Starting Wed01/23/20 at 2215, For 30 days [facility] Medication administered onsite 7.5-325 mg 01/15/2020 12:00:00 AM EDT tablet 60 TAKE 1 TABLET BY MOUTH EVERY 6 HOURS NEEDED FOR SEVERE HIP PAIN MAXIMUM DAILY DOSE = 4 TAKE 1 TABLET BY MOUTH EVERY 6 HOURS NEEDED FOR SEVERE HIP PAIN MAXIMUM DAILY DOSE = 4 SOLD: 01/17/2020 [facility] Omeprazole 40 MG Delayed Release Oral Ca psule Omeprazole 40 MG Oral Capsule Delayed Release (PRILOSEC) Omeprazole 40 MG Oral Capsule Delayed Re lease (PRILOSEC) 12/22/2019 12:00:00 AM EDT 1 {capsule} Oral ac tive Take 1 capsule by mouth daily [facility] 5-325 mg 12/21/2019 12:00:00 AM EDT tablet 60 TAKE 1 TABLET BY MOUTH EVERY 4-6 HOURS NEEDED FOR SEVERE PAIN MAXIMUM DAILY DOSE = 2 TAKE 1 TABLET BY MOUTH EVERY 4-6 HOURS NEEDED FOR SEVERE PAIN MAXIMUM DAILY DOSE = 2 SOLD: 12/22/2019 [facility] Acetaminophen 325 MG / Hydrocodone Smith trate 5 MG Oral Tablet HYDROcodone- Acetaminophen 5-325 MG Oral Tablet (LORTAB) HYDROcodone-Acetaminophen 5-325 MG Oral Tablet (LORTAB) 12/21/2019 12:00:00 AM EDT 1 {tbl} Oral aborted Take 1 tablet by mouth as needed [facility] 5-325 mg 11/22/2019 12:00:00 AM EDT tablet 60 TAKE ONE TABLET BY MOUTH EVERY 4 TO 6 HOURS NEEDED FOR SEVERE PAIN, MAXIMUM DAILY DOSE = 2 TAKE ONE TABLET BY MOUTH EVERY 4 TO 6 HOURS NEEDED FOR SEVERE PAIN, MAXIMUM DAILY DOSE = 2 SOLD: 11/22/2019 [facility] 2 mg 11/10/2019 12:00:00 AM EDT lozenge 144 DISSOLE SLOWLY IN MOUTH 1 LOZENGE EVERY 2 HOURS NEEDED DISSOLE SLOWLY IN MOUTH 1 LOZENGE EVERY 2 HOURS NEEDED SOLD: 11/12/2019 [facility] 2 mg 11/10/2019 12:00:00 AM EDT lozenge 144 DISSOLE SLOWLY IN MOUTH 1 LOZENGE EVERY 2 HOURS NEEDED DISSOLE SLOWLY IN MOUTH 1 LOZENGE EVERY 2 HOURS NEEDED SOLD: 12/22/2019 [facility] 5-325 mg 10/25/2019 12:00:00 AM EST tablet 90 TAKE ONE TABLET BY MOUTH EVERY 4 TO 6 HOURS NEEDED FOR SEVERE PAIN MAXIMUM DAILY DOSE = 3 TAKE ONE TABLET BY MOUTH EVERY 4 TO 6 HOURS NEEDED FOR SEVERE PAIN MAXIMUM DAILY DOSE = 3 SOLD: 10/25/2019 [facility] 5-325 mg 09/24/2019 12:00:00 AM EST tablet 90 TKAE 1 TABLET BY MOUTH EVERY 4 TO 6 HOURS NEEDED FOR SEVERE PAIN MAXIMUM DAILY DOSE = 3 TABLETS TKAE 1 TABLET BY MOUTH EVERY 4 TO 6 HOURS NEEDED FOR SEVERE PAIN MAXIMUM DAILY DOSE = 3 TABLETS SOLD: 09/25/2019 [facility] 14 mg/24 hr 08/29/2019 12:00:00 AM EST patch 24 hour 28 APPLY ONE PATCH TO THE SKIN EVERY DAY APPLY ONE PATCH TO THE SKIN EVERY DAY SOLD: 09/25/2019 [facility] 14 mg/24 hr 08/29/2019 12:00:00 AM EST patch 24 hour 28 APPLY ONE PATCH TO THE SKIN EVERY DAY APPLY ONE PATCH TO THE SKIN EVERY DAY SOLD: 10/24/2019 [facility] 14 mg/24 hr 08/29/2019 12:00:00 AM EST patch 24 hour 28 APPLY ONE PATCH TO THE SKIN EVERY DAY APPLY ONE PATCH TO THE SKIN EVERY DAY SOLD: 12/22/2019 [facility] 14 mg/24 hr 08/29/2019 12:00:00 AM EST patch 24 hour 28 APPLY ONE PATCH TO THE SKIN EVERY DAY APPLY ONE PATCH TO THE SKIN EVERY DAY SOLD: 11/22/2019 [facility] 14 mg/24 hr 08/29/2019 12:00:00 AM EST patch 24 hour 28 APPLY ONE PATCH TO THE SKIN EVERY DAY APPLY ONE PATCH TO THE SKIN EVERY DAY SOLD: 08/31/2019 [facility] 5-325 mg 08/24/2019 12:00:00 AM EST tablet 90 TAKE ONE TABLET BY MOUTH EVERY 4 TO 6 HOURS NEEDED FOR SEVERE PAIN MAXIMUM DAILY DOSE = 3 TABLETS TAKE ONE TABLET BY MOUTH EVERY 4 TO 6 HOURS NEEDED FOR SEVERE PAIN MAXIMUM DAILY DOSE = 3 TABLETS SOLD: 08/26/2019 [facility] 40 mg 08/14/2019 12:00:00 AM EST capsule,delayed release (DR/EC) 60 TAKE ONE CAPSULE BY MOUTH TWICE A DAY FOR 2 MONTHS THEN 1 ONCE DAILY AT BEDTIME FOR 4 MONTHS TAKE ONE CAPSULE BY MOUTH TWICE A DAY FO R 2 MONTHS THEN 1 ONCE DAILY AT BEDTIME FOR 4 MONTHS SOLD: 12/22/2019 [facility] 40 mg 08/14/2019 12:00:00 AM EST capsule,delayed release (DR/EC) 60 TAKE ONE CAPSULE BY MOUTH TWICE A DAY FOR 2 MONTHS THEN 1 ONCE DAILY AT BEDTIME FOR 4 MONTHS TAKE ONE CAPSULE BY MOUTH TWICE A DAY FO R 2 MONTHS THEN 1 ONCE DAILY AT BEDTIME FOR 4 MONTHS SOLD: 08/16/2019 [facility] 40 mg 08/14/2019 12:00:00 AM EST capsule,delayed release (DR/EC) 60 TAKE ONE CAPSULE BY MOUTH TWICE A DAY FOR 2 MONTHS THEN 1 ONCE DAILY AT BEDTIME FOR 4 MONTHS TAKE ONE CAPSULE BY MOUTH TWICE A DAY FO R 2 MONTHS THEN 1 ONCE DAILY AT BEDTIME FOR 4 MONTHS SOLD: 03/15/2020 [facility] 40 mg 08/14/2019 12:00:00 AM EST capsule,delayed release (DR/EC) 60 TAKE ONE CAPSULE BY MOUTH TWICE A DAY FOR 2 MONTHS THEN 1 ONCE DAILY AT BEDTIME FOR 4 MONTHS TAKE ONE CAPSULE BY MOUTH TWICE A DAY FO R 2 MONTHS THEN 1 ONCE DAILY AT BEDTIME FOR 4 MONTHS SOLD: 09/13/2019 [facility] 40 mg 08/14/2019 12:00:00 AM EST capsule,delayed release (DR/EC) 60 TAKE ONE CAPSULE BY MOUTH TWICE A DAY FOR 2 MONTHS THEN 1 ONCE DAILY AT BEDTIME FOR 4 MONTHS TAKE ONE CAPSULE BY MOUTH TWICE A DAY FO R 2 MONTHS THEN 1 ONCE DAILY AT BEDTIME FOR 4 MONTHS SOLD: 10/15/2019 [facility] 40 mg 08/14/2019 12:00:00 AM EST capsule,delayed release (DR/EC) 60 TAKE ONE CAPSULE BY MOUTH TWICE A DAY FOR 2 MONTHS THEN 1 ONCE DAILY AT BEDTIME FOR 4 MONTHS TAKE ONE CAPSULE BY MOUTH TWICE A DAY FO R 2 MONTHS THEN 1 ONCE DAILY AT BEDTIME FOR 4 MONTHS SOLD: 05/29/2020 [facility] Doxycycline Monohydrate 100 MG Oral Caps ule doxycycline monohydrate 100 mg capsule TAKE ONE CAPSULE BY MOUTH TWICE A DAY doxycycline monohydrate 100 mg capsule TAKE ONE CAPSULE BY MOUTH TWICE A DAY completed doxycycline monohydrate 100 MG Oral Capsule [facility] ([facility]) Furosemide 40 MG Oral Tablet furosemide 40 mg tablet furosemide 40 mg tablet completed furosemide 40 MG Oral Tablet [facility] ([facility]) Insurance Providers Payer name Policy type / Coverage type Policy ID Covered constitution party ID Covered constitution party's relationship to delacruz Policy Delacruz Plan Information [employer] COMMUNITY PLAN MCDO [id number] SP [id number] [facility] O [id number] S [id number] Managed Care - [facility] Community Plan P [id number] S [id number] Medicaid S [id number] S [id number] Managed Care - [facility] Community Plan P [id number] S [id number] [facility] I [id number] Self [id number] [facility] I [id number] Self [id number] Medicaid S [id number] S [id number] [facility] MEDICAID [id number] [facility] MEDICAID [id number] Reyna [id number] Managed Care - [facility] Community Plan P [id number] S [id number] Managed Care - [facility] Community Plan P [id number] S [id number] Managed Care - [facility] Community Plan P [id number] S [id number] Medicaid S [id number] S [id number] [facility] Comm Plan Medicaid F [id number] SELF [id number] Managed Care - Community Plan [facility] P [id number] S [id number] Managed Care - Community Plan [facility] P [id number] S [id number] Self Pay P [id number] S [id number] SELF PAY ONLY UNK SP UNK SELF PAY UNAVAILABLE SP UNAVAILA BLE Problems, Conditions, and Diagnoses Code Display Name Description Problem Type Effective Dates Data Source(s) 73460272 Cigarette smoker Cigarette Smoker Problem 06/20/2020 12 :00:00 AM EDT [facility]) [id number] Thromboembolism of vein Thromboembolism of Vein Proble m 06/20/2020 12:00:00 AM EDT ELM MOTT ([facility]) [id number] Morbid obesity Morbid Obesity Problem 06/20/2020 12:00: 00 AM EDT ELM MOTT ([facility]) 97475660 Vitamin D deficiency Vitamin D Deficiency Problem 06/20/2020 12:00:00 AM EDT [facility] MOTT ([facility]) [id number] Cigarette smoker Cigarette Smoker Problem 06/20/2020 12 :00:00 AM EDT [facility]) 706224902 Thromboembolism of vein Thromboembolism of Vein Proble m 06/20/2020 12:00:00 AM EDT [facility] ([facility]) [id number] Morbid obesity Morbid Obesity Problem 06/20/2020 12:00: 00 AM EDT ELM MOTT ([facility]) 21890673 Vitamin D deficiency Vitamin D Deficiency Problem 06/20/2020 12:00:00 AM EDT ELM MOTT ([facility]) [id number] Cigarette smoker Cigarette Smoker Problem 06/20/2020 12 :00:00 AM EDT ELM MOTT ([facility]) 142242163 Thromboembolism of vein Thromboembolism of Vein Proble m 06/20/2020 12:00:00 AM EDT [facility] MOTT ([facility]) 118580393 Morbid obesity Morbid Obesity Problem 06/20/2020 12:00: 00 AM EDT ELM MOTT ([facility]) 70183614 Vitamin D deficiency Vitamin D Deficiency Problem 06/20/2020 12:00:00 AM EDT ELM MOTT ([facility]) M16.11 Unilateral primary osteoarthritis, right hip Unilateral primary osteoarthritis, right hip 02/21/2020 03:26:37 PM EDT [facility] [id number] Idiopathic osteoarthritis Idiopathic Osteoarthritis Pr oblem 02/20/2020 12:00:00 AM EDT ELM MOTT ([facility]) [id number] Idiopathic osteoarthritis Idiopathic Osteoarthritis Pr oblem 02/20/2020 12:00:00 AM EDT [facility] MOTT ([facility]) 922954652 Idiopathic osteoarthritis Idiopathic Osteoarthritis Pr oblem 02/20/2020 12:00:00 AM EDT [facility] MOTT ([facility]) V70.0 Encounter for general adult medical exam ination with abnormal findings Encounter for general adult medical examination with abnormal findings 02/15/2020 08:34:39 AM EDT [facility] [id number] Other specified hypothyroidism Other specified hypothy roidism 02/15/2020 08:34:39 AM EDT [facility] V85.43 BMI 50.0-59.9 BMI 50.0-59.9 02/15/2020 08:34:39 AM EDT [facility] [id number] Procedure by method Procedure by Method Problem 0 02/15/2020 12:00:00 AM EDT ELM MOTT ([facility]) [id number] Body mass index 30+ - obesity Body Mass Index 30+ - Ob esity Problem 02/15/2020 12:00:00 AM EDT [facility] MOTT ([facility]) 24170396 Hypothyroidism Hypothyroidism Problem 02/15/2020 12:00: 00 AM EDT ELM MOTT ([facility]) 129923293 Procedure by method Procedure by Method Problem 0 02/15/2020 12:00:00 AM EDT [facility] ([facility]) [id number] Body mass index 30+ - obesity Body Mass Index 30+ - Ob esity Problem 02/15/2020 12:00:00 AM EDT [facility] ([facility]) 80075902 Hypothyroidism Hypothyroidism Problem 02/15/2020 12:00: 00 AM EDT ELM MOTT ([facility]) 149225479 Procedure by method Procedure by Method Problem 0 02/15/2020 12:00:00 AM EDT [facility] ([facility]) [id number] Body mass index 30+ - obesity Body Mass Index 30+ - Ob esity Problem 02/15/2020 12:00:00 AM EDT [facility] MOTT ([facility]) 54185866 Hypothyroidism Hypothyroidism Problem 02/15/2020 12:00: 00 AM EDT ELM MOTT ([facility]) 327.23 Obstructive sleep apnea syndrome 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 02/05/2020 02:34:23 PM EDT [facility] I26.09 Other pulmonary embolism with acute cor pulmonale Other pulmonary embolism with acute cor pulmonale 02/05/2020 02:34:23 PM EDT [facility] [id number] Acute cor pulmonale Acute Cor Pulmonale Problem 0 02/05/2020 12:00:00 AM EDT ELM MOTT ([facility]) 76018178 Obstructive sleep apnea syndrome Obstructive Sle ep Apnea Syndrome Problem 02/05/2020 12:00:00 AM EDT ELM MOTT ([facility]) 44933431 Acute cor pulmonale Acute Cor Pulmonale Problem 0 02/05/2020 12:00:00 AM EDT ELM MOTT ([facility]) 44193238 Obstructive sleep apnea syndrome Obstructive Sle ep Apnea Syndrome Problem 02/05/2020 12:00:00 AM EDT ELM MOTT ([facility]) 97951819 Acute cor pulmonale Acute Cor Pulmonale Problem 0 02/05/2020 12:00:00 AM EDT [facility] ([facility]) 95724816 Obstructive sleep apnea syndrome Obstructive Sle ep Apnea Syndrome Problem 02/05/2020 12:00:00 AM EDT [facility] ([facility]) I82.412 Acute embolism and thrombosis of left fe moral vein Acute embolism and thrombosis of left femoral vein Problem 01/29/2020 01:00:00 AM EDT N VIGNESH ([facility]) I82.432 Acute embolism and thrombosis of left po pliteal vein Acute embolism and thrombosis of left popliteal vein Problem 01/29/2020 01:00:00 AM EDT NETSMART ([facility]) E66.01 Morbid (severe) obesity due to excess ca lories Morbid (severe) obesity due to excess calories Problem 01/29/2020 01:00:00 AM EDT [facility] ( [facility]) G47.33 Obstructive sleep apnea (adult) (pediatr ic) Obstructive sleep apnea (adult) (pediatric) Problem 01/29/2020 01:00:00 AM EDT [facility] ([facility]) M16.0 Bilateral primary osteoarthritis of hip Bilateral primary osteoarthritis of hip Problem 01/29/2020 01:00:00 AM EDT [facility] ([facility]) G89.29 Other chronic pain Other chronic pain Problem 0 01:00:00 AM EDT [facility] ([facility]) F17.210 Nicotine dependence, cigarettes, uncompl icated Nicotine dependence, cigarettes, uncomplicated Problem 01/29/2020 01:00:00 AM EDT NETSMAR T ([facility]) Z79.01 snf (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 s snf (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s Problem 01/29/2020 01:00:00 AM EDT [facility] ([facility]) Z91.81 History of falling History of falling Problem 0 01:00:00 AM EDT [facility] ([facility]) Z68.44 Body mass index (BMI) 60.0-69.9, adult B pravin mass index (BMI) 60.0-69.9, adult Problem 01/29/2020 01:00:00 AM EDT NETSARETHAT ([facility]) Z60.2 Problems related to living alone Problems related to l iving alone Problem 01/29/2020 01:00:00 AM EDT NETSARETHAT ([facility] ) I26.09 Other pulmonary embolism with acute cor pulmonale Other pulmonary embolism with acute cor pulmonale Problem 01/29/2020 01:00:00 AM EDT NETSARETHAT ([facility]) I27.82 Chronic pulmonary embolism Chronic pulmonary embolism Problem 01/29/2020 01:00:00 AM EDT NETSARETHA ([facility] ) 719.07 Ankle edema Ankle edema 11/10/2019 09:17:31 AM EDT [facility] V15.82 Ex-smoker Ex-smoker 11/10/2019 09:17:31 AM ED T [facility] [id number] Clinical finding Clinical Finding Problem 11/10/2019 12 :00:00 AM EDT [facility]) 509133090 Localized edema Localized Edema Problem 11/10/2019 12:0 0:00 AM EDT ELM MOTT ([facility]) [id number] Clinical finding Clinical Finding Problem 11/10/2019 12 :00:00 AM EDT ELM MOTT ([facility]) [id number] Localized edema Localized Edema Problem 11/10/2019 12:0 0:00 AM EDT [facility]) [id number] Clinical finding Clinical Finding Problem 11/10/2019 12 :00:00 AM EDT [facility]) 072602332 Localized edema Localized Edema Problem 11/10/2019 12:0 0:00 AM EDT [facility]) F43.20 Adjustment disorder, unspecified Adjustment diso rders, Unspecified Diagnosis 07/18/2020 12:00:00 AM EST [facility] ([facility]) F50.9 Eating disorder, unspecified Unspecified feeding or eating disorder Diagnosis 07/18/2020 12:00:00 AM EST [facility] ([facility]) I26.94 Multiple subsegmental pulmonary emboli w ithout acute cor pulmonale Multiple subsegmental pulmonary emboli without acute cor pulmonale Diagnosis 01/24/2020 05:37:49 PM EDT [facility] I26.99 Other pulmonary embolism without acute c or pulmonale Other pulmonary embolism without acute cor pulmonale Diagnosis 01/24/2020 05:37:49 PM EDT [facility] Z68.44 Body mass index (BMI) 60.0-69.9, adult B pravin mass index (bmi) 60.0-69.9, adult Diagnosis 01/24/2020 05:34:15 PM EDT [facility] E66.01 Morbid (severe) obesity due to excess ca lories Morbid (severe) obesity due to excess calories Diagnosis 01/24/2020 05:34:15 PM EDT [facility] LLE DVT LLE DVT Diagnosis 01/23/2020 09:52:49 PM ED [facility] Multiple PE's Multiple PE's Diagnosis [facility]/23[facility] E[facility].01 Morbid (severe) obesity due to excess ca lories Morbid (severe) obesity due to excess ca Diagnosis 11/06/2019 07:26:38 AM EDT [facility] K21.9 Gastro-esophageal reflux disease without esophagitis Gastro-esophageal reflux disease without Diagnosis 11/06/2019 07:25:00 AM EDT [facility] Surgeries/Procedures Procedure Description Date Indications Data Source(s) ANTI-XA UNFRACTIONATED HEPARIN LEVEL ANTI-XA UNFRACTIONATED HEPARIN LEVEL Routine 01/27/2020 5:29 AM EDT 01/27/2020 09:29:00 AM [facility] PROBNP PROBNP Routine 01/27/2020 5:29 AM EDT 01/27/20 20 09:29:00 AM [facility] PROTHROMBIN TIME PROTIME INR Routine 01/27/2020 5:29 AM EDT 01/27/2020 09:29:00 AM [facility] BLOOD COUNT COMPLETE AUTOMATED CBC Routine 01/27/2020 5:29 A M EDT 01/27/2020 09:29:00 AM [facility] BASIC METABOLIC PANEL CALCIUM TOTAL BASIC METABOLIC PANEL Routi ne 01/27/2020 5:29 AM EDT 01/27/2020 09:29:00 AM EDT [facility] HEPARIN ASSAY ANTI-XA UNFRACTIONATED HEPARIN LEVEL Routine 01/26/2020 10:50 PM EDT 01/27/2020 02:50:00 AM EDT [facility] HEPARIN ASSAY ANTI-XA UNFRACTIONATED HEPARIN LEVEL Routine 01/26/2020 5:22 PM EDT 01/26/2020 09:22:00 PM EDT [facility] HEPARIN ASSAY ANTI-XA UNFRACTIONATED HEPARIN LEVEL Routine 01/26/2020 11:07 AM EDT 01/26/2020 03:07:00 PM EDT [facility] HEPARIN ASSAY ANTI-XA UNFRACTIONATED HEPARIN LEVEL Routine 01/26/2020 3:21 AM EDT 01/26/2020 07:21:00 AM EDT [facility] PROTHROMBIN TIME PROTIME INR Routine 01/26/2020 3:21 AM EDT 01/26/2020 07:21:00 AM [facility] BLOOD COUNT COMPLETE AUTOMATED CBC Routine 01/26/2020 3:21 A M EDT 01/26/2020 07:21:00 AM [facility] BASIC METABOLIC PANEL CALCIUM TOTAL BASIC METABOLIC PANEL Routi ne 01/26/2020 3:21 AM EDT 01/26/2020 07:21:00 AM EDT [facility] HEPARIN ASSAY ANTI-XA UNFRACTIONATED HEPARIN LEVEL Routine 01/25/2020 8:01 PM EDT 01/26/2020 12:01:00 AM EDT [facility] HEPARIN ASSAY ANTI-XA UNFRACTIONATED HEPARIN LEVEL Routine 01/25/2020 11:59 AM EDT 01/25/2020 03:59:00 PM EDT [facility] HEPARIN ASSAY ANTI-XA UNFRACTIONATED HEPARIN LEVEL Routine 01/25/2020 4:59 AM EDT 01/25/2020 08:59:00 AM EDT [facility] NATRIURETIC PEPTIDE PROBNP Routine 01/25/2020 4:59 AM EDT 01/25/2020 08:59:00 AM [facility] PROTHROMBIN TIME PROTIME INR Routine 01/25/2020 4:59 AM EDT 01/25/2020 08:59:00 AM [facility] BLOOD COUNT COMPLETE AUTOMATED CBC Routine 01/25/2020 4:59 A M EDT 01/25/2020 08:59:00 AM [facility] BASIC METABOLIC PANEL CALCIUM TOTAL BASIC METABOLIC PANEL Routi ne 01/25/2020 4:59 AM EDT 01/25/2020 08:59:00 AM EDT [facility] HEPARIN ASSAY ANTI-XA UNFRACTIONATED HEPARIN LEVEL Routine 01/24/2020 9:10 PM EDT 01/25/2020 01:10:00 AM EDT [facility] PROTHROMBIN TIME PROTIME INR Routine 01/24/2020 9:10 PM EDT 01/25/2020 01:10:00 AM [facility] BLOOD COUNT COMPLETE AUTOMATED CBC Timed 01/24/2020 9:10 P M EDT 01/25/2020 01:10:00 AM [facility] HEPARIN ASSAY ANTI-XA UNFRACTIONATED HEPARIN LEVEL Routine 01/24/2020 1:36 PM EDT 01/24/2020 05:36:00 PM EDT [facility] ECHO TTHRC R-T 2D W/WOM-MODE COMPL SPEC&COLR DOP ECHOCARDIO GRAM 2D COMPLETE Routine 01/24/2020 9:31 AM EDT 01/24/2020 01:31:23 PM [facility] HEPARIN ASSAY ANTI-XA UNFRACTIONATED HEPARIN LEVEL Routine 01/24/2020 5:46 AM EDT 01/24/2020 09:46:00 AM EDT [facility] BLOOD COUNT COMPLETE AUTO&AUTO DIFRNTL WBC COUNT CBC AND DIFFER ENTIAL Routine 01/24/2020 5:46 AM EDT 01/24/2020 09:46:00 AM [facility] TROPONIN QUANTITATIVE TROPONIN T Routine 01/24/2020 5:46 AM EDT 01/24/2020 09:46:00 AM [facility] PHOSPHORUS INORGANIC PHOSPHORUS LEVEL Routine 01/24/2020 5:46 AM E DT 01/24/2020 09:46:00 AM [facility] MAGNESIUM MAGNESIUM LEVEL Routine 01/24/2020 5:46 AM EDT 01/24/2020 09:46:00 AM [facility] COMPREHENSIVE METABOLIC PANEL COMPREHENSIVE METABOLIC PANEL Rou lisa 01/24/2020 5:46 AM EDT 01/24/2020 09:46[facility] COVID-19 PCR STAT 01/23/2020 10:41 PM EDT 01/24/2020 02:41:00 AM [facility] BLOOD COUNT COMPLETE AUTO&AUTO DIFRNTL WBC COUNT CBC AND DIFFER ENTIAL Routine 01/23/2020 10:31 PM EDT 01/24/2020 02:31:00 AM [facility] TROPONIN QUANTITATIVE POCT ISTAT TROPONIN Routine 01/23/2020 10:12 PM EDT 01/24/2020 02:12:00 AM [facility] HEPARIN ASSAY ANTI-XA UNFRACTIONATED HEPARIN LEVEL Routine 01/23/2020 10:09 PM EDT 01/24/2020 02:09:00 AM EDT [facility] BLOOD COUNT COMPLETE AUTO&AUTO DIFRNTL WBC COUNT CBC AND DIFFER ENTIAL Routine 01/23/2020 10:09 PM EDT 01/24/2020 02:09:00 AM EDT [facility] BASIC METABOLIC PANEL CALCIUM TOTAL BASIC METABOLIC PANEL Routi ne 01/23/2020 10:09 PM EDT 01/24/2020 02:09:00 AM EDT [facility] EKG 12-LEAD - CMAXX REPORT EKG 12-LEAD - CMAXX REPORT 01/23/2020 10:08 PM EDT 01/24/2020 02:08:39 AM EDT [facility] EKG 12-LEAD - CMAXX REPORT EKG 12-LEAD - CMAXX REPORT 01/23/2020 10:08 PM EDT 01/24/2020 02:08:39 AM EDT [facility] EKG 12-LEAD EKG 12-LEAD STAT 01/23/2020 10:08 PM EDT 01/24/2020 02:08:39 AM [facility] UPPER NDSC BIOPSY SINGLE/MULTIPLE 11/06/2019 12:00:00 AM EDT KYLEE ([facility]) Results ID Date Data Source [id number] 05/09/2020 09:44:34 AM EDT [facility] Labs In-House Blood TestsDate/Time Colle cted: May 09, 2020 9:37 AMTest Result Reference Range Normal ValueComments: Labs drawn in office taken from right hand. Paitent was a hard stick, but tolerated it well. Majo Ramirez MA, May 09, 2020 9:45 AMAssessment & Plan Orders:[id number]- Ofc Vst-Est Level I [CPT-77807] [id number] - Venipuncture [CPT-[id number]] Name Value Range Interpretation Code Description Data Savi rce(s) Supporting Document(s) ID Date Data Source [id number] 05/09/2020 09:36:00 AM EDT [facility] Name Value Range Interpretation Code Description Data Savi rce(s) Supporting Document(s) HGBA1C 6.4 % N [facility] ID Date Data Source [id number] 05/09/2020 09:36:00 AM EDT [facility] Name Value Range Interpretation Code Description Data Savi rce(s) Supporting Document(s) BG FASTING 132 mg/dL 70-100 H [facility] TSH 2.220 microintl units/mL 0.358-3.740 N [facility] ID Date Data Source [id number] 02/15/2020 08:10:42 AM EDT [facility] Measurements & CalculationsHeight: 74 inches (6 ft. 2 in.) 187.96 cm Weight: 462 pounds 2 oz. 210.06 kg Body Mass Index (BMI): 59.55BMI Interpretation: Morbidly ObeseBody Surface Area (BSA): 3.10Weight Management Education Done (Nutrition/Physical Activity)Vital SignsTemperature: 98.4FPulse Rate: 88 beats/minuteRespiratory Rate: 14 respirations/minuteBlood Pressure: 103/71 O2 Saturation: 97% room airVital Signs performed by: Emely Schmitt, February 15, 2020 8:17 AMVital Signs performed by: Emely Schmitt, February 15, 2020 8:17 AMInitial Intake Information From: patientRoom #: 14Infectious Disease / Travel ScreeningRecent travel for you or any close contacts? NoHave you had any close contact with anyone diagnosed with or under investigation for COVID-19 (coronavirus)? NoFever? NoRespiratory symptoms: cough, cold, congestion, shortness of breath, difficulty breathing? NoLoss of smell? NoLoss of taste? NoSmoking, Tobacco, Vaping or Smoke Exposure StatusSmoke Status: current some day smokerTobacco Use: YesAdv to Quit: YesDo you vape? NoPassive Smoke Exposure: YesHealthcare HistorySince your last office visit...Have you been admitted to the hospital? NoHave you been to an emergency room (ER) or urgent care clinic? NoHave you seen another healthcare provider? Yes - Dr Cruz, Dr SultanaHave you seen a dentist? NoIntake performed by: Emely Schmitt, February 15, 2020 8:14 AMRate Your HealthIn general, would you say your health is? FairPain AssessmentAre you currently having any pain which... You would like your provider to address? No Affects your activity level? NoDepression Screening - PHQ-2Over the last two weeks, have you... Had little interest or pleasure in doing things? Not at all Been feeling down, depressed, or hopeless? Not at all PHQ-2 Score: 0Food InsecurityWithin the past year...Did you worry whether your food would run out before you got money to buy more? NoWas there a time wh en the food you bought didn't last and you didn't have money to get more? NoPRAPARE Sociodemographic Characteristics Race: White Ethnicity: Not or Preferred Language: EnglishWithin the past year did you worry whether your food would run out before you got money to buy more? NoWithin the past year was there a time when the food you bought didn't last and you didn't have money to get more? NoScreening, Brief Intervention, & Referral to Treatment (SBIRT)Pre-Screening Questions How many times have you have 5 or more drinks in a day? 0How many times have you used an illegal drug or used a prescription medication for a non-medical reason? 0Performed by: Emely Schmitt, February 15, 2020 8:15 AMPatient History Medical History:Deep vein thrombosis - Acute- 01/23/2020femoral vein Left lower extremityPulmonary embolism- Acute 01/23/2020 acute submassive PE with cor pulmonaleOsteoarthritis- right hipGERDAcute Kidney Injury 01/23/2020Sleep apneapulmonary embolism Surgical History:Pin in hip-15years oldFamily History:No known family historySocial/Personal History: Advised to Quit/Tobacco Education: YesChief Complaintannual, labs, referral for sleep studyHistory of Present Illness (HPI)Patient is here in clinic today to go over his labs from 02/07/20. Patient would like a referral for a sleep study to be done. Had witnessed apneas while in the hospital and was intolerant at the time of CPAP. He does fall asleep easily while reading or watching TV. Wakes up tired. Morning headaches.Ongoing hip pain. Does not have follow up with Ortho but will call them. No relief with Tylenol.Working on gettig back in with bariatric surgery to get the surgery done.Labs show a TSH of 4.HPI performed by: John Martinez MD, February 15, 2020 8:21 AMTransitions of Care InboundProblem ReviewProblem List was reviewed and/or updated during this visit.Medication Reconciliation & ReviewMedication List was reviewed and/or updated during this visit, including review of any fusk-gxi-whojstg medications, herbal therapies, and/or supplements.Allergy ReviewAllergy List was reviewed and/or updated during this visit.Adult Preventive CareProvider Calculated and Reviewed all Clinical Protocols for patient today. Screening Tobacco Screening: Smoking Status: current some day smoker (02/15/2020) Tobacco Use: Currently (02/15/2020) Advised to Quit: Yes (02/15/2020)Labs/Meds/Other Counseling-Nutrition and Physical Activity:BMI Interpretation: Morbidly Obese (02/15/2020) Counseling: Done (02/15/2020) Physical Activity: Done (02/15/2020)Review of Systems General: Complains of fatigue, headache. Denies dizziness. Cardiovascular: Denies chest pain. Respiratory: Denies shortness of breath. Gastrointestinal: Denies diarrhea, constipation. Genitourinary: Denies urinary incontinence, incomplete emptying. Physical ExamGeneral Appearance: well nourished, well hydrated, no acute distressEyes, External: conjunctivae and lids normal, EOMIRespiratory, Auscultation: clear to auscultation bilaterally; no rales, rhonchi, or wheezesRespiratory, Effort: no intercostal retractions or use of accessory musclesCardiovascular, Auscultation: S1, S2 audible; no murmur, rub, or gallop; RRRGait & Station: Walking with cane.Mood & Affect: no depression, anxiety, or agitationJudgment & Insight: intactCare Management Plan Transitions of CareInboundRate Your HealthIn general, would you say your health is? Kody peñasment & Plan Problems:Added: BMI 50.0-59.9 (ICD-V85.43) (ICD10- Z68.43)Encounter for general adult medical examination with abnormal findings (ICD-V70.0) (TJM29-S73.01) Assessment: Instructions: Diet and exercise.Fasting blood tests reviewed.Other specified hypothyroidism (ICD10- E03.8) Assessment: Instructions: Newly diagnosed and this may be a factor in both his sleep apnea and obesity.Recheck 3 months with fasting blood tests before.Assessed:Obstructive sleep apnea syndrome (ICD-327.23) (KAI65-R94.33) Assessment: Instructions: Refer to pulomnary.Pain in right hip (ICD-719.45) (OZH44-H97.551) Assessment: Instructions: Medication options are limited:Opiates are not a good idea with untreated sleep apnea and NSAIDs and COX2s are not indicated with Eliquis.He will call the orthopedic surgeon and discuss options with them.Patient Instructions/Care Plan: Obstructive sleep apnea syndrome: Refer to pulomnary.Encounter for general adult medical examination with abnormal findings: Diet and exercise.Fasting blood tests reviewed.Pain in right hip: Medication options are limited:Opiates are not a good idea with untreated sleep apnea and NSAIDs and COX2s are not indicated with Eliquis.He will call the orthopedic surgeon and discuss options with them.Other specified hypothyroidism: Newly diagnosed and this may be a factor in both his sleep apnea and obesity.Recheck 3 months with fasting blood tests before. Plan developed in collaboration with patient and/or familyMedications:LEVOTHYROXINE SODIUM 100 MCG ORAL TABLETTUB BENCH.ELIQUIS 5 MG ORAL TABLETEQL NICOTINE POLACRILEX 2 MG MOUTH/THROAT LOZENGEOMEPRAZOLE 40 MG ORAL CAPSULE DELAYED RELEASECOLACE 100 MG ORAL CAPSULEMedication Changes:Refilled:ELIQUIS 5 MG ORAL TABLET-One po bid. Qty: 60[Tablet] Refills: 5 Method: ElectronicNew Prescription:LEVOTHYROXINE SODIUM 100 MCG ORAL TABLET-One tablet by mouth every day Qty: 30[Tablet] Refills: 2 Method: ElectronicChanged: To: ELIQUIS 5 MG ORAL TABLET-One po bid. Qty: 60[Tablet] Refills: 5Allergies:SOMA (Severe)Orders:Preventive, Est, (40-64) [CPT-56171] Pulmonology Consult [CPT-05945] COMP METABOLIC PANEL [CPT-34981] TSH [CPT-82298] LIPID PANEL [CPT-53923] HgBA1c [CPT-18773] Medications:LEVOTHYROXINE SODIUM 100 MCG ORAL TABLET (LEVOTHYROXINE SODIUM) One tablet by mouth every day #30[Tablet] x 2 Route:ORAL Entered and Authorized by: John Martinez MD Method used: Electronically to [facility] (retail) [address] [place] [address] Note to Pharmacy: Route: ORAL; RxID: [id number] 5 MG ORAL TABLET (APIXABAN) One po bid. #60[Tablet] x 5 Entered and Authorized by: John Martinez MD Method used: Electronically to [facility] (retail) [address] [place] [address] Fax: Note to Pharmacy: Route: ORAL; RxID: [id number] signed by John Martinez MD on 02/15/2020 at 9:56 AM Name Value Range Interpretation Code Description Data Savi rce(s) Supporting Document(s) ID Date Data Source [id number] 02/07/2020 07:43:23 AM EDT [facility] Labs In-House Blood TestsDate/Time Colle cted: February 07, 2020 7:43 AMTest Result Reference Range Normal ValueComments: blood draw done in office,t jong from right ac, tolerated well.Emely Keshia, February 07, 2020 7:44 AMAssessment & Plan Orders:57823-Phr Vst-Est Level I [CPT-22149] 86922 - Venipuncture [CPT-89422] Name Value Range Interpretation Code Description Data Savi rce(s) Supporting Document(s) ID Date Data Source [id number] 02/07/2020 07:40:00 AM EDT [facility] Name Value Range Interpretation Code Description Data Savi rce(s) Supporting Document(s) HCT 47.0 % 42.0-52.0 N [facility] HGB 14.9 g/dL 13.5-17.5 N [facility] MCH 31.7 G/DL pg 32.0-36.5 L [facility] MCHC 28.2 PG % 27.0-33.0 N [facility] PLATELETS 194 10 10*3/mm3 150-450 N [facility] RBC 5.29 10 10*6/mm3 4.30-6.10 [facility] RDW 15.2 % 11.5-14.5 H [facility] WBC TOTAL 9.6 4.0-10.0 N [facility] ID Date Data Source [id number] 02/07/2020 07:40:00 AM EDT [facility] Name Value Range Interpretation Code Description Data Savi rce(s) Supporting Document(s) BG FASTING 118 mg/dL 70-100 H [facility] y Health TSH 4.460 microintl units/mL 0.358-3.[address] [facility] VIT D25 TOT 15.0 ng/mL 30.0-100.0 L [facility] ID Date Data Source [id number] 02/07/2020 07:40:00 AM EDT [facility] Name Value Range Interpretation Code Description Data Savi rce(s) Supporting Document(s) HGBA1C 6.5 % N [facility] ID Date Data Source [id number] 02/05/2020 01:42:25 PM EDT [facility] Measurements & CalculationsHeight: 74 inches (6 ft. 2 in.) 187.96 cm Weight: 467.4 pounds 212.45 kg Body Mass Index (BMI): 60.23BMI Interpretation: Morbidly ObeseBody Surface Area (BSA): 3.12Weight Management Education Done (Nutrition/Physical Activity)Vital SignsTemperature: 97.9FPulse Rate: 86 beats/minuteRespiratory Rate: 18 respirations/minuteBlood Pressure: 121/77 O2 Saturation: 97% Vital Signs performed by: Kassie Steiner MA, February 05, 2020 1:48 PMInitial Intake Information From: patientRoom #: 14Infectious Disease / Travel ScreeningRecent travel for you or any close contacts? NoHave you had any close contact with anyone diagnosed with or under investigation for COVID-19 (coronavirus)? NoFever? NoRespiratory symptoms: cough, cold, congestion, shortness of breath, difficulty breathing? NoLoss of smell? NoLoss of taste? NoSmoking, Tobacco, Vaping or Smoke Exposure StatusSmoke Status: current some day smokerTobacco Use: YesAdv to Quit: YesDo you vape? NoHealthcare HistorySince your last office visit...Have you been admitted to the hospital? Yes - [facility] for PE Have you been to an emergency room (ER) or urgent care clinic? NoHave you seen another healthcare provider? Yes - dr cruz, Dr. sultana Have you seen a dentist? NoIntake performed by: Kassie Steiner MA, February 05, 2020 1:45 PMRate Your HealthIn general, would you say your health is? PoorPain AssessmentAre you currently having any pain which... You would like your provider to address? No Affects your activity level? NoDepression Screening - PHQ-2Over the last two weeks, have you... Had little interest or pleasure in doing things? Not at all Been feeling down, depressed, or hopeless? Not at all PHQ-2 Score: 0Anxiety Screening - OVIDIO-2Over the last two weeks, have you been... Feeling nervous, anxious, or on edge? Not at all Unable to stop or control worrying? Not at all OVIDIO-2 Score: 0Screening, Brief Intervention, & Referral to Treatment (SBIRT)Pre-Screening Questions How many times have you have 5 or more drinks in a day? 0How many times have you used an illegal drug or used a prescription medication for a non-medical reason? 0Performed by: Kassie Steiner MA, February 05, 2020 1:46 PMPatient History Medical History:Deep vein thrombosis - Acute- 01/23/2020femoral vein Left lower extremityPulmonary embolism- Acute 01/23/2020 acute submassive PE with cor pulmonaleOsteoarthritis- right hipGERDAcute Kidney Injury 01/23/2020Sleep apneapulmonary embolism Surgical History:Pin in hip-15years oldFamily History:No known family historySocial/Personal History: Advised to Quit/Tobacco Education: YesChief ComplaintHD PEHistory of Present Illness (HPI)Was having what he thought were panic attacks but this turned out to be PE, ostensibly from obesity and immobilization and was started on Eliquis 5 mg bid. Feeling better in this regard. No chest pain and no shortness of breath. While he was there they noticed periodic and significant desaturations in )2. He does have a long history of sleep apnea. This has not been addressed for a while. Had trouble tolerating CPAP in the hospital.Chronic issues with hip pain. Has not seen Ortho for a while. Was taking [place] for this. We had recently increased this to 7.5 mg. After his hospital stay he got anxious about being on this with breathing issues and threw it away. Has been trying to manage this with Tylenol. No scheduled follow up.No scheduled follow up with bariatric surgeon. They were trying to set him up for online nutrition classes but he was having some issues on his phone. HPI performed by: John Martinez MD, February 05, 2020 1:53 PMTransitions of Care InboundAdult Preventive CareScreening Tobacco Screening: Smoking Status: current some day smoker (02/05/2020) Tobacco Use: Currently (02/05/2020) Advised to Quit: Yes (02/05/2020)Labs/Meds/Other Counseling- Nutrition and Physical Activity:BMI Interpretation: Morbidly Obese (02/05/2020) Counseling: Done (02/05/2020) Physical Activity: Done (02/05/2020)Review of Systems General: Denies dizziness, fatigue. Cardiovascular: Denies chest pain. Respiratory: Denies shortness of breath. Gastrointestinal: Denies constipation. Genitourinary: Denies incomplete emptying. Physical ExamGeneral Appearance: well nourished, well hydrated, no acute distressRespiratory, Auscultation: clear to auscultation bilaterally; no rales, rhonchi, or wheezesRespiratory, Effort: no intercostal retractions or use of accessory musclesCardiovascular, Auscultation: S1, S2 audible; no murmur, rub, or gallop; RRROrientation: oriented to time, place, and personMood & Affect: no depression, anxiety, or agitationJudgment & Insight: intactCare Management Plan Transitions of CareInboundRate Your HealthIn general, would you say your health is? PoorAssessment & Plan Problems:Added: Obstructive sleep apnea syndrome (ICD- 327.23) (EEW45-A72.33) Assessment: Instructions: Refer to pulmonary.We discussed the importance eof treating this as well as the danger of using [place] with its risk of addiitive respiratory depression. He is anxious about this possibility and I share his cocnern. I would like to avoid this combination for a while and have him focus on using Tylenol until we can address this.Other pulmonary embolism with acute cor pulmonale (GZX30-R69.09) Assessment: Instructions: Due to obesity and immobility. Symptomatically improved.Cotninue current dose of Eliquis for at least 6 months.Assessed:Obesity, unspecified (ARX91-I63.9) Assessment: Instructions: He will elisa bariatric surgery to reschedule with them. The sooner the better.Pain in right hip (ICD-719.45) (JUN14-Y02.551) Assessment: Instructions: He will call Ortho to reschedule.Patient Instructions/Care Plan: Obstructive sleep apnea syndrome: Refer to pulmonary.We discussed the importance eof treating this as well as the danger of using [place] with its risk of addiitive respiratory depression. He is anxious about this possibility and I share his cocnern. I would like to avoid this combination for a while and have him focus on using Tylenol until we can address this.Other pulmonary embolism with acute cor pulmonale: Due to obesity and immobility. Symptomatically improved.Cotninue current dose of Eliquis for at least 6 months.Obesity- unspecified: He will elisa bariatric surgery to reschedule with them. The sooner the better.Pain in right hip: He will call Ortho to reschedule. Plan developed in collaboration with patient and/or familyMedication Changes:Refilled:EQL NICOTINE POLACRILEX 2 MG MOUTH/THROAT LOZENGE-one lozenge slowly dissolved in mouth q2h prn Qty: 150[Lozenge] Refills: 1 Method: ElectronicRemoved:HYDROCODONE-ACETAMINOPHEN 5-325 MG ORAL TABLET- Take one every 6 hours as needed for pain x 3 daysOrders:Adult - Ofc Vst, EST, Level III [CPT-63101] Medications:EQL NICOTINE POLACRILEX 2 MG MOUTH/THROAT LOZENGE (NICOTINE POLACRILEX) one lozenge slowly dissolved in mouth q2h prn #150[Lozenge] x 1 Route:MOUTH/THROAT Entered and Authorized by: John Martinez MD Method used: Electronically to [facility] (retail) [facility] [place] [address] Note to Pharmacy: Route: M/T; RxID: [id number] signed by John Martinez MD on 02/05/2020 at 2:34 PM Name Value Range Interpretation Code Description Data Savi rce(s) Supporting Document(s) ID Date Data Source [id number] 01/30/2020 09:53:13 PM EDT [facility] CT 2ND OPINION READ - CHEST [id number] R ESULTInterpreted by:Krishna Parr MDEXAMINATION: CT 2ND OPINION READ - CHEST [id number] INDICATION: 49-year-old male with pulmonary emboli, assess for right heart strain.TECHNIQUE: Axial CTA images of the chest with contrast were acquired at [facility] on January 23, 2020 and submitted for second opinion consultation on January 25, 2020.COMPARISON: None available for comparison.FINDINGS:CTA: There is redemonstration of filling defects within the bilateral right and left main pulmonary arteries, right sided lobar pulmonary arteries extending into the segmental and subsegmental branches. There are also filling defects of the left main pulmonary artery, left lobar pulmonary arteries extending into the segmental and subsegmental branches.Heart and pericardium: The right ventricle is larger in size than the left ventricle. There is no pericardial effusion or pericardial thickening. There is flattening of the interventricular septum.Lungs and large airways: Low lung volumes are present with bibasilar atelectasis. The lungs are otherwise clear without focal consolidation or evidence of pulmonary edema. Motion artifact results in sub optimal evaluation of the affected regions.The central airways are patent.Pleura: No pneumothorax or pleural effusion.Mediastinum and selma: No mediastinal or hilar lymphadenopathy.Chest wall and lower neck: Grossly unremarkable. No axillary lymphadenopathy.Vessels: Minimal atherosclerotic calcifications are present in the thoracic aorta and coronary arteries.Bones: No suspicious lytic or blastic lesions are present. Multilevel degenerative changes are present in the visualized spine.Upper abdomen: Limited views of the upper abdomen are grossly unremarkable.IMPRESSION: 1. Large bilateral pulmonary emboli.2. The right ventricle is dilated and larger than the left ventricle with flattening of the interventricular septum compatible with right heart strain.Important note: This examination was not performed at our institution. Decisions about the scanning protocols or parameters utilized, which ultimately affect the overall quality of this study, were under the control of the outside facility. Furthermore, additional sequences and clinical information may be present at the original institution that are not in our possession. Consequently, this report is not a substitute for the report issued from the originating institution, which should be reviewed in conjunction with this opinion.This document has been electronically signed by Ganga Calloway MD on 01/30/2020 9:51 PM Name Value Range Interpretation Code Description Data Savi rce(s) Supporting Document(s) ID Date Data Source [id number] 01/30/2020 06:02:32 PM EDT [facility] Name Value Range Interpretation Code Description Data Savi rce(s) Supporting Document(s) ED Provider Note [facility] NEJQEy2pOhWSRlGn75/YEGctRZNxs2ZlUFoeBIg3WMlfKTMwV4NiIDZ7zC4sIRX8YAbMYiCiWhSpIxGn lbm [file] cLUhOCkzUL4MXOE+Estefani+Bm0WJIRxJHRnOXLaYlWxWBOFPlJeH7RpK9QAy2GmI6IzTX00gUmclfRhYIfv XB8FAY1iSMHbXLAXWN3SeEVegP3kjwY6JrSvFERURdEbC85lhMWoVVFtTFNhDIIlHj7IOIMqG2HrsoNc pAaqnwUgQCWdNOWCNU1AXFjazuSyvORqnEatJF48aB xnCT8ENh5YLvEoAK5ewv0GwTYsKh7YRCQ4RT7JGFQrRBPyUWZkJHF4OHMhZsChXTrhUVGdVJQdDEV4OG TxABGiQT5DNzAgKLLqXNCwIaycUTOdTZAjlk0KEAOoLJS8KrXfJIZcPGMdTNYxMWseTOYfWTRfAVN0JS CpBCOpET0MZeOvARLcMVAcFjzbICCjQOPzfr4OMNBr EMYjGiF0XQMyUUGfGWHhERjyUGOyFFK8UqGfTRYzFOBuBX8BOdZbGAGyFGN1UOgcGCFaSJDaeg9YZVDy BARcUXU8XsWsAYKuFIXzJWvaZOAeLTI4Bij2HUMxWBDpOM4KSnTrXFKvWRR9OGjsVYGlBEDflg7JPDSj LYFdAJm5ZDOxUCXdATEcGScsFLMsGOToKMY8GADfZA EuZE2HXbXlRQQtVUHwQyXwLNTuPJBhxj2CDEXeNEVxHDO4RfEwIYTsRTBtWIfpPXArTJU2EjDdSGDxGR FyWJ3ZCbJnXGQaRXZ9FEzdRHWtBCLrxp0PLRKvNPYjVGU2EECeVDWoTVZfDBntODJrKHR1Wqa7ORLfOM TpIB6VKmPiJHBhAEpsNNQuATDeWGMopr7HWHBaCZQk YoMoSvVrAHTvDWCeWLswAICjHVVpGtT0GNPoDCXvQY2QZlYaFRVpAvA3PLLgASXtLYReab7BTBUlKRSe FDUqJrMnKGOsACFhERemGVRpCSU7Inb8SDSzDRWrNG9ECsChKIIkAuq8JTNfXPXpTRPpod0UTZQdAOHt JFWmUGLfBIKiLDLgLZuuYNIoUVJhHFF8TTSxTDCbEL 9EMyXvLQWySeXbPWYbVBYyKLWhsq9YCJHfQVFsOvTmENSwUYJiSYVeLZqmGKPnRNFfXqHwSRGcMIXgBB 1HAeVvRCAkFkT4NRwlVLHrYXYiuh7WHYRcRCCzZkK9BJBjFIWoOZPyVZugYTRvJCJ6IkHnEBJdCIPmPA 7XTlGeDEAmBvM7CMCeHFRoJKYdrf1SJUBdRPRpPYi1 ZXSkJUGvGUVrONtuIAXrGZC4VIGgSMUkKMRxRE4KPrSpZXSwCmJqKNrmXVBaALDuuq6WZVYrWOMzUvZs IQBiDKNwKOQeFOraSPZcOQU0AbL7ESHyGBJuBV7OJsRiZKKuXVxoEkGuPNKqKRKrot6WJJReNII0GPM6 UwMxGOLfJOSqCUqyKLGrYTQ4NDpkLRRuAJLzPE8CMi OjRYFbTUv8OpmwMGObAHEyao7ISVPaFTG7UIV7HTVaFROkVZJwQEbkPRUiQKM1KpK4DCLiCXVzNA2GIp CiLOPsQOa3CjHzVTXfBBZukc9TRRFoTYU5DUy5ANGqLXRtSTOlSYmnLAMtNZKkOTW3CMZyVUKwQA5DFc XnTWMcDDGdIJShOMLvEFDhsh9DXEMjALC0XVG3XSTx PBLoZQToTKviGEHcLZClXbR8BODlTUAxEN9DUcVfJSMpBDNaMCScOVEzCVBcem6STXTxYQY0CoE4JyJn HSVuEXVdJXzvQKFhUZPyBZy6DZAkHKMpSJ7KGhZxHJBfVAE2KUQuGHWuVNSthk7MCYUbOIA3Wpx4IUAh CLTtCBQyUZcxLJWfYNQ4LEB9GLGgJUTmCO6AEuPrFA gcNATOZgr7KLnaC1a9SYB2KQ6MC0Xyu7RnDEhfAYYXZAiyZE2ntwEwNWXfWh8AB1uEKgueKBWuOHHoAI ApNKSkNDHoIAK1BJYnQCToRjMtFfYtXg9kQQDvQiNgWRMiPCZ1FDDtMPK3BCItMWK3AyJtJRXrTdH9Zj NsCQ1CIb1ENnO5DMD1uLEaJb7OAOX3EVeEUiPcPI7ZSGq= ID Date Data Source [id number] 01/28/2020 06:01:10 PM EDT [facility] Name Value Range Interpretation Code Description Data Savi rce(s) Supporting Document(s) Discharge Summary [facility] SCOSJv1wNaOURzLy16/FUYdbDDQdh8YwQKkfAEo4KXmkMRYxS5VtGIZ8zD2mXRF8POaAPbHeUvKpDTDs lbm [file] AqAjZs7ZCQBCE4OJXc== ID Date Data Source [id number] 01/27/2020 06:08:37 AM EDT [facility] Name Value Range Interpretation Code Description Data Savi rce(s) Supporting Document(s) Leukocytes [#/volume] in Blood by Automated count 9.6 10*3/uL 4-10 [facility] Erythrocytes [#/volume] in Blood by Automated count 4.35 10*6/uL 4.6- 6.1 L [facility] Hemoglobin [Mass/volume] in Blood 12.3 g/dL 13.5-18 L [facility] Hematocrit [Volume Fraction] of Blood by Automated count 37.1 % 4 1-53 L [facility] Erythrocyte mean corpuscular volume [Entitic volume] by Auto mated count 85.3 fL 80-96 [facility] Erythrocyte mean corpuscular hemoglobin [Entitic mass] by Automated count 28.4 pg 27-33 [facility] Erythrocyte mean corpuscular hemoglobin concentration [Mass/volume] by Automated count 33.3 g/dL 32.0-36.0 [facility] distribution width [Ratio] by Automated count 15.5 % 11.5-14.5 H [facility] Platelets [#/volume] in Blood by Automated count 129 10*3/uL 150-400 L [facility] ID Date Data Source [id number] 01/27/2020 06:13:44 AM [facility] Value Range Interpretation Code Description Data Savi rce(s) Supporting Document(s) Prothrombin time (PT) 13.7 s 12.5-14.9 [facility] INR in Platelet poor plasma by Coagulation assay 1.04 [facility] Routine intensity oral anticoagulation I NR is typically 2.0-3.0. Target INR must be clinically individualized. ID Date Data Source [id number] 01/27/2020 06:13:44 AM [facility] Value Range Interpretation Code Description Data Savi rce(s) Supporting Document(s) Heparin unfractionated [Units/volume] in Platelet poor plasma by Chromogenic method 0.43 U/ml [facility] ID Date Data Source [id number] 01/27/2020 06:28:03 AM [facility] Value Range Interpretation Code Description Data Savi rce(s) Supporting Document(s) Natriuretic peptide.B prohormone N-Terminal [Mass/volu me] in Serum or Plasma 1872 pg/mL <125 H [facility] ID Date Data Source [id number] 01/27/2020 06:28:03 AM [facility] Value Range Interpretation Code Description Data Savi rce(s) Supporting Document(s) Bicarbonate [Moles/volume] in Serum 23 mmol/L 22-29 [facility] Chloride [Moles/volume] in Serum or Plasma 103 mmol/L 98-107 [facility] Creatinine [Mass/volume] in Serum or Plasma 1.21 mg/dL 0.70-1.20 H [facility] Glucose [Mass/volume] in Serum or Plasma 93 mg/dL 70-140 [facility] Potassium [Moles/volume] in Serum or Plasma 3.9 mmol/L 3.4-5.1 [facility] Sodium [Moles/volume] in Serum or Plasma 138 mmol/L 136-145 [facility] Urea nitrogen [Mass/volume] in Serum or Plasma 8 mg/dL 6-20 [facility] Anion gap 3 in Serum or Plasma 12 mmol/L 8-15 [facility] Osmolality of Serum or Plasma by calculation 284 mosm/kg 275-300 [facility] Creatinine/Urea nitrogen [Mass Ratio] in Serum or Plasma 7 [facility] Calcium [Mass/volume] in Serum or Plasma 8.5 mg/dL 8.6-10.0 L [facility] Glomerular filtration rate/1.73 sq M pre dicted among non-blacks [Volume Rate/Area] in Serum or Plasma by Creatinine-based formula (MDRD) 70 mL/min/1.73m2 >60 [facility] Glomerular filtration rate/1.73 sq M pre dicted among blacks [Volume Rate/Area] in Serum or Plasma by Creatinine-based formula (MDRD) 81 mL/min/1.73m2 >60 [facility] ID Date Data Source [id number] 01/26/2020 11:21:16 PM [facility] Name Value Range Interpretation Code Description Data Savi rce(s) Supporting Document(s) Heparin unfractionated [Units/volume] in Platelet poor plasma by Chromogenic method 0.35 U/ml [facility] ID Date Data Source [id number] 01/26/2020 05:41:39 PM [facility] Name Value Range Interpretation Code Description Data Savi rce(s) Supporting Document(s) [facility] EKUKCb3rGyQHVtTi20/YQOhyTHXmz6VgIFziWDi4QEyhHFOjR5HmMGY2rA3kKOU9TReYOtWeTqBzDAV4 [facility] [file] WATlcsc4r2Bd7+graduate internship+yUz2f3wQCHBmm37u2WZuDm6LP [file] AMMtPNZwPjNyCNJ4Z4JnRvF5IV9yFHKQPo4+BKvvaIMzkLhgHRSBJgY9ERR5PLjeCWDCRm1I ID Date Data Source [id number] 01/26/2020 05:57:52 PM EDT [facility] Name Value Range Interpretation Code Description Data Savi e(s) Supporting Document(s) Heparin unfractionated [Units/volume] in Platelet poor plasma by Chromogenic method 0.52 U/ml [facility] al ID Date Data Source [id number] 01/26/2020 11:46:08 AM EDT [facility] Name Value Range Interpretation Code Description Data Savi rce(s) Supporting Document(s) Heparin unfractionated [Units/volume] in Platelet poor plasma by Chromogenic method 0.14 [facility] Date Data Source [id number] 01/26/2020 03:50:27 AM [facility] Value Range Interpretation Code Description Data Savi rce(s) Supporting Document(s) Leukocytes [#/volume] in Blood by Automated count 10.5 10*3/uL 4-10 [facility] Erythrocytes [#/volume] in Blood by Automated count 4.37 10*6/uL 4.6- 6.1 L [facility] Hemoglobin [Mass/volume] in Blood 12.3 g/dL 13.5-18 L [facility] Hematocrit [Volume Fraction] of Blood by Automated count 37.2 % 4 1-53 L [facility] Erythrocyte mean corpuscular volume [Entitic volume] by Auto mated count 85.3 fL 80-96 [facility] Erythrocyte mean corpuscular hemoglobin [Entitic mass] by Automated count 28.2 pg 27-33 [facility] Erythrocyte mean corpuscular hemoglobin concentration [Mass/volume] by Automated count 33.0 g/dL 32.0-36.0 [facility] Erythrocyte distribution width [Ratio] by Automated count 15.4 % 11.5-14.5 H [facility] Platelets [#/volume] in Blood by Automated count 113 10*3/uL 150-400 L [facility] ID Date Data Source [id number] 01/26/2020 04:03:44 AM [facility] Value Range Interpretation Code Description Data Savi rce(s) Supporting Document(s) Heparin unfractionated [Units/volume] in Platelet poor plasma by Chromogenic method 0.37 U/[facility] Date Data Source [id number] 01/26/2020 04:03:44 AM [facility] Value Range Interpretation Code Description Data Savi rce(s) Supporting Document(s) Prothrombin time (PT) 14.3 s 12.5-14.9 [facility] INR in Platelet poor plasma by Coagulation assay 1.10 [facility] Routine intensity oral anticoagulation I NR is typically 2.0-3.0. Target INR must be clinically individualized. ID Date Data Source [id number] 01/26/2020 04:03:51 AM EDT [facility] Name Value Range Interpretation Code Description Data Savi rce(s) Supporting Document(s) Bicarbonate [Moles/volume] in Serum 21 mmol/L 22-29 L [facility] Chloride [Moles/volume] in Serum or Plasma 105 mmol/L 98-107 [facility] Creatinine [Mass/volume] in Serum or Plasma 1.21 mg/dL 0.70-1.20 H [facility] Glucose [Mass/volume] in Serum or Plasma 111 mg/dL 70-140 [facility] Potassium [Moles/volume] in Serum or Plasma 3.9 mmol/L 3.4-5.1 [facility] Sodium [Moles/volume] in Serum or Plasma 136 mmol/L 136-145 [facility] Urea nitrogen [Mass/volume] in Serum or Plasma 9 mg/dL 6-20 [facility] Anion gap 3 in Serum or Plasma 10 mmol/L 8-15 [facility] Osmolality of Serum or Plasma by calculation 282 mosm/kg 275-300 [facility] Creatinine/Urea nitrogen [Mass Ratio] in Serum or Plasma 8 [facility] Calcium [Mass/volume] in Serum or Plasma 8.2 mg/dL 8.6-10.0 L [facility] Glomerular filtration rate/1.73 sq M pre dicted among non-blacks [Volume Rate/Area] in Serum or Plasma by Creatinine-based formula (MDRD) 70 mL/min/1.73m2 >60 [facility] Glomerular filtration rate/1.73 sq M pre dicted among blacks [Volume Rate/Area] in Serum or Plasma by Creatinine-based formula (MDRD) 81 mL/min/1.73m2 >60 [facility] ID Date Data Source [id number] 01/25/2020 08:46:27 PM EDT [facility] Name Value Range Interpretation Code Description Data Savi rce(s) Supporting Document(s) Heparin unfractionated [Units/volume] in Platelet poor plasma by Chromogenic method [facility] ID Date Data Source [id number] 01/25/2020 03:04:44 PM EDT [facility] Name Value Range Interpretation Code Description Data Savi rce(s) Supporting Document(s) [facility] EKPVUo2hIhLEJnYh91/KQLnrAHQdl1IqFHtlAYo1KWxtYZTuL2YqPHI2qC8zEKY7THsNJjWgLhRxPZN3 lbm [file] rjPYTkVTBxSzBdDV3kTCNNGl3+OIphzXMbvUkpHAATMhA3DdI3QVldHCGUTr0P ID Date Data Source [id number] 01/25/2020 12:33:32 PM [facility] Value Range Interpretation Code Description Data Savi rce(s) Supporting Document(s) Heparin unfractionated [Units/volume] in Platelet poor plasma by Chromogenic method 0.29 U/[facility] ID Date Data Source [id number] 01/25/2020 05:26:45 AM [facility] Value Range Interpretation Code Description Data Savi rce(s) Supporting Document(s) Leukocytes [#/volume] in Blood by Automated count 10.7 10*3/uL 4-10 H [facility] Erythrocytes [#/volume] in Blood by Automated count 4.40 10*6/uL 4.6- 6.1 L [facility] Hemoglobin [Mass/volume] in Blood 12.5 g/dL 13.5-18 L [facility] Hematocrit [Volume Fraction] of Blood by Automated count 37.9 % 4 1-53 L [facility] Erythrocyte mean corpuscular volume [Entitic volume] by Auto mated count 86.1 fL 80-96 [facility] Erythrocyte mean corpuscular hemoglobin [Entitic mass] by Automated count 28.5 pg 27-33 [facility] Erythrocyte mean corpuscular hemoglobin concentration [Mass/volume] by Automated count 33.0 g/dL 32.0-36.0 [facility] Erythrocyte distribution width [Ratio] by Automated count 15.4 % 11.5-14.5 H [facility] Platelets [#/volume] in Blood by Automated count 109 10*3/uL 150-400 L [facility] ID Date Data Source [id number] 01/25/2020 05:36:28 AM [facility] Value Range Interpretation Code Description Data Savi rce(s) Supporting Document(s) Heparin unfractionated [Units/volume] in Platelet poor plasma by Chromogenic method 0.28 U/ml [facility] ID Date Data Source [id number] 01/25/2020 05:36:28 AM [facility] Value Range Interpretation Code Description Data Savi rce(s) Supporting Document(s) Prothrombin time (PT) 14.5 s 12.5-14.9 [facility] INR in Platelet poor plasma by Coagulation assay 1.12 [facility] Routine intensity oral anticoagulation I NR is typically 2.0-3.0. Target INR must be clinically individualized. ID Date Data Source [id number] [facility]2020 [facility]42:[facility] Interpretation Code Description Data Savi rce(s) Supporting Document(s) Bicarbonate [Moles/volume] in Serum 25 mmol/L 22-29 [facility] Chloride [Moles/volume] in Serum or Plasma 103 mmol/L 98-107 [facility] Creatinine [Mass/volume] in Serum or Plasma 1.36 mg/dL 0.70-1.20 H [facility] Glucose [Mass/volume] in Serum or Plasma 106 mg/dL 70-140 [facility] Potassium [Moles/volume] in Serum or Plasma 4.3 mmol/L 3.4-5.1 [facility] Sodium [Moles/volume] in Serum or Plasma 137 mmol/L 136-145 [facility] Urea nitrogen [Mass/volume] in Serum or Plasma 13 mg/dL 6-20 [facility] Anion gap 3 in Serum or Plasma 9 mmol/L 8-15 [facility] Osmolality of Serum or Plasma by calculation 284 mosm/kg 275-300 [facility] Creatinine/Urea nitrogen [Mass Ratio] in Serum or Plasma 10 [facility] Calcium [Mass/volume] in Serum or Plasma 8.1 mg/dL 8.6-10.0 L [facility] Glomerular filtration rate/1.73 sq M pre dicted among non-blacks [Volume Rate/Area] in Serum or Plasma by Creatinine-based formula (MDRD) 61 mL/min/1.73m2 >60 [facility] Glomerular filtration rate/1.73 sq M pre dicted among blacks [Volume Rate/Area] in Serum or Plasma by Creatinine-based formula (MDRD) 70 mL/min/1.73m2 >60 [facility] ID Date Data Source [id number] 01/25/2020 07:53:[facility] Value Range Interpretation Code Description Data Savi rce(s) Supporting Document(s) Natriuretic peptide.B prohormone N-Terminal [Mass/volu me] in Serum or Plasma 3004 pg/mL <125 H [facility] ID Date Data Source [id number] 01/24/2020 09:35:29 PM [facility] Value Range Interpretation Code Description Data Savi rce(s) Supporting Document(s) Leukocytes [#/volume] in Blood by Automated count 11.2 10*3/uL 4-10 H [facility] Erythrocytes [#/volume] in Blood by Automated count 4.50 10*6/uL 4.6- 6.1 L [facility] Hemoglobin [Mass/volume] in Blood 12.9 g/dL 13.5-18 L [facility] Hematocrit [Volume Fraction] of Blood by Automated count 38.0 % 4 1-53 L [facility] Erythrocyte mean corpuscular volume [Entitic volume] by Auto mated count 84.5 fL 80-96 [facility] Erythrocyte mean corpuscular hemoglobin [Entitic mass] by Automated count 28.7 pg 27-33 [facility] Erythrocyte mean corpuscular hemoglobin concentration [Mass/volume] by Automated count 34.0 g/dL 32.0-36.0 [facility] Erythrocyte distribution width [Ratio] by Automated count 15.4 % 11.5-14.5 [facility] Platelets [#/volume] in Blood by Automated count 108 10*3/uL 150-400 L [facility] ID Date Data Source [id number] 01/24/2020 09:56:55 PM [facility] Value Range Interpretation Code Description Data Savi rce(s) Supporting Document(s) Heparin unfractionated [Units/volume] in Platelet poor plasma by Chromogenic method [facility] ID Date Data Source [id number] 01/24/2020 09:56:55 PM [facility] Value Range Interpretation Code Description Data Savi rce(s) Supporting Document(s) Prothrombin time (PT) 14.9 s 12.5-14.9 [facility] INR in Platelet poor plasma by Coagulation assay 1.15 [facility] Routine intensity oral anticoagulation I NR is typically 2.0-3.0. Target INR must be clinically individualized. ID Date Data Source [id number] 01/24/2020 05:39:04 PM [facility] Value Range Interpretation Code Description Data Savi rce(s) Supporting Document(s) History and Physical [facility] MZBWZf9pSkHBReBd97/RLIivPSFxi0SiBNreVMv8IEbbBYNjU4YwDNJ1pS0mYRT4KKhIGeUnMsHwAIP4 lbm [file] AgICAgICAgICAgICAgICAgICAgICAgICAgICAgICAg ICAgICAgICAgICAgICANCiAgICAgICAgICAgICAgICAgICAgICAgICAgICAgICAgICAgICAgICAgICAg ICAgICAgICAgICAgICAgICAgICAgICAgICAgICAgICAgICAgICAgICAgICAgICAgICAgICAgICANCiAg ICAgICAgICAgICAgICAgICAgICAgICAgICAgICAgIC AgICAgICAgICAgICAgICAgICAgICAgICAgICAgICAgICAgICAgICAgICAgICAgICAgICAgICAgICAgIC AgICAgICANCiAgICAgICAgICAgICAgICAgICAgICAgICAgICAgICAgICAgICAgICAgICAgICAgICAgIC AgICAgICAgICAgICAgICAgICAgICAgICAgICAgICAg ICAgICAgICAgICAgICAgICANCiAgICAgICAgICAgICAgICAgICAgICAgICAgICAgICAgICAgICAgICAg ICAgICAgICAgICAgICAgICAgICAgICAgICAgICAgICAgICAgICAgICAgICAgICAgICAgICAgICAgICAN CiAgICAgICAgICAgICAgICAgICAgICAgICAgICAgIC AgICAgICAgICAgICAgICAgICAgICAgICAgICAgICAgICAgICAgICAgICAgICAgICAgICAgICAgICAgIC AgICAgICAgICANCiAgICAgICAgICAgICAgICAgICAgICAgICAgICAgICAgICAgICAgICAgICAgICAgIC AgICAgICAgICAgICAgICAgICAgICAgICAgICAgICAg ICAgICAgICAgICAgICAgICAgICANCiAgICAgICAgICAgICAgICAgICAgICAgICAgICAgICAgICAgICAg ICAgICAgICAgICAgICAgICAgICAgICAgICAgICAgICAgICAgICAgICAgICAgICAgICAgICAgICAgICAg ICANCiAgICAgICAgICAgICAgICAgICAgICAgICAgIC AgICAgICAgICAgICAgICAgICAgICAgICAgICAgICAgICAgICAgICAgICAgICAgICAgICAgICAgICAgIC AgICAgICAgICAgICANCiAgICAgICAgICAgICAgICAgICAgICAgICAgICAgICAgICAgICAgICAgICAgIC AgICAgICAgICAgICAgICAgICAgICAgICAgICAgICAg ICAgICAgICAgICAgICAgICAgICAgICANCjw/bQUsL9zrxMFtgrA8A6orQp8DMn6UEL7gm0PlOMRoYDpc fkOxEziRFiIyETTpNeiDHya1FQpvMX9ZmSJdN1GaL1RhFUkdQR5XYSSfQXBpeYKwXIYiDNNgLvH5OEBj BQpoRE3NnMFwKUukMQTwRVQiGqVmDNPxIHCpQEZjTX HmYLOPRCLaUGTfBvTxZYypTR7La9NvvEH3NEn+Jm9UHT6lu6StMVuyPIEqDN3tds1ZCHwNMfNhE4Vmeg H3ROCkOKOfFl3ULIJvKGCgfHA3MOTeIKQIOgIbS4PfiD65UMAOXw2+LZzibaDiQdiFShNnMPFnt7EzNI e5BQ6GLFTqVUc9bENpVIPFRXO0FJFocBWsZHZtY2bn ivzaBVZrFSCxJA3iEw0bXWMtLLOxIdHuXFBEYC3DKVSzXLZbtVYbICFxWMQZOG9QDUasCDF1BBHjcuSe yNXzVLqxRQ5SHOIcacJbUrczNHYXANa+Se7UTV3ds0ZdQUv1PFUbIT4uhu0JNXvLCwAkC5N3lOCvK5A9 KDprLq8ISSZcNMKfWubyCYETZVqwBD8PHC8hgeC5MG 5MnORcOEJkOCWsmNJaTWz0Q13xeKKkVYhoNI9MOFJ+Estefani+Ih1BIGPxQXSsRTQaHaUhAJBECjCmV5KuA0 EKn5OeJ1KwLA35vUqwznBwQMocWM5EWN4cBLRoDKTISG2ReFGfhP7rjoGkDZNvRVKCNwKrR34gfZEbSB TpJTD4DOBjWc3MGVCmS7YykaZmdFgejgShFTEuGWWT IG5PHDwqvxOlgHDswHkqSQ41yPrgLP2PIf4MSuHfHU3byf7VtRXuTp3UEZJ4Jc2QPFVpPKIcWQCoZCJ6 UWEbQgEsUQjfEFBySFLjBLG6ECWbHFJjPO5XKxAyRTVgXoKpCHrtGCAyIYQzte4IECSpJYYmCar7KbYt ALOcPUGvYFucNYZtSCNkAXQ2REOvAOLtEB8AGhKrYX ZcSME7MAjgNFWwGHLtcq0UTYTsYNIeYea2HMDiMWOxHGBbPPpsNNHtYTC2SaF7SBWnKHXgAI8MDeTbBA MtEXb6QbryDCCdKAKejb7RUXTcIQFkPGx1FqUiEWBdHXFyYLokTKSqCKQgXEddTWCjRBEuDJ0YGyMaRB JoKXVdWpRtNAHkUIDzfv9OUQZlTFGuFAMcOEEcCAWx ROOrJFzrBJBsHGF9KGbnGMRfDZFqCV6RJjNgOLWuHKQ6VYiwIIKlMQUgpm5ZYIHsLXLwKqe5KVTzXPWa SCXuTRpdYBVgWZN4WPB4SDTzVXMdAH9TSlAwUSCdHVnbTukoRIJrTAJdob9NHDSkZLOpTXA4JcCoVZAm RSFiPYfnJSFxADF5Vcu8TESaCUSvKM3YRgMkMHXdMO r3COeeXXFrQWLpud3RPKCaKNVyPCY9QrVtWQVaFDFpZGafVGMmZPM8RfL1QEEuKSCeXY0UAmSnIHMfGO f5ZaEtJXKxRJXbpj1YHHNxJFHbIFe9RfGaLXWbVQHsPPaiTQJnLKHyBDiiHTTnWDLyRM0VRiEfKZSiQv MmVjIbCDVtGLZhtc8KGCKkQDZgHwFjOsDnVAPbDBKo RWtiTEEnSOSmHzTlMBIgVBYbXS0TYzHvYQUxTdU7ReRqYCBkLRWflb6XUFOpVCXnZdfbJBHtGJZaRFTw KFdjOJYaPQC4CsOhAYNzHSWxWO8NYxJaHNRiZsZ8YZLzXJCqJVMfjp2GYHRmYOIiRWE0BWTyDEZuUEYe QResTGYhVUH3CGR2WXLySWErGS3HMxCsZOReVxH5Vi CsLIGqRUFgfa3MTASoXGKgTDq0FFXsHOHtBBZqIAxfUVAdAAU6RBE6BZBrZEShLY4BCdZiYQJdUdM0MC HoTXRxNDKhpd0VCFBiLBEiAZI1FmEiFULmFDEqSRbfCEVdDRM5XKD4EXZmXDSjID9SMuIaLANwLxwsZv QxQELpWBWphw4AgGFydMnpgs3RPTjNGw7XoEozXNLk WQkyQs8onTR3PRFkOUXBOr2IfjAzXAPnRDGUJPghTTHiBNXuTtLbLwQ6XVO0DsQlDStmAhXnWGVaJZvq KUOcLNN1ZdG5SgOsBRUoIsb6XVB4XVO6UMJzP4R6CwKvYLSgUlW0RxG+SO3yIDv+Mc2Dh8TypkO6bkDl KWmeYMGbGz8IKGSWG4NGIs== ID Date Data Source [id number] [facility]12[facility] Interpretation Code Description Data Savi rce(s) Supporting Document(s) Heparin unfractionated [Units/volume] in Platelet poor plasma by [facility] Date [facility] Source [id number] [facility]2020 08:45[facility] Interpretation Code Description Data Savi rce(s) Supporting Document(s) [facility] HEMSZk1tViXTZsUvn2KrYtEfHOJzFR6msmx6P9J1bOMxS9UtsUUyp5ulZ9FdN4PkVBXpDYJMCY6LzTXz jb2 [file] //dAF3e24Q+soc2O0jLc4ok6218K/ci0753O74/NU3f+Zn9xx8/+ci27696Irv0n1kg241//GrL97+/u 2/v/vx/fzyM609a+8/sFZwr8dc02/78vs/839pz/+/ //F2T41662gcM+4/g1283acenQao1wvGF//jTtB1//I76s02P3/1Y406G3N8/9uvP7z/2gvfQu63/fL7 t3c/utvs49v//Pr9n/wZQrzdI63tdd/8y+/+9Puf/vntn/3a2eptkt578WoO4143/brb91j1511ewfh3 q/dfv/0zU7k2n943++Ve7udM7p/YT3F+3o1z3je52/ wXi+/Ao/3M7fe//8W/8dJrSsFyveDf/ik8sfgsdTG949k/F+D+YhhU0WcZ3jaSBROrTq8mk15rFQK73G uVy384IWuD6+uLV4d+q92awU2j7s9Ge6/+5ac//Dft1XI9sv++f70kb//tV+++/aSl7ZO/lJF/ef8nzf zekmf5VG4w/fABr9bXblaAVwjuaPluIY/+9Id//5u3 P/3m33/65OyvKfItEubcP/v5a9CKYcPWg506N/76w9vv/vDvP/3pf//mX//R1K05Py826ZhqBC+fn/1g f//h+7d//o/Xvf/uj3/4+pe3ltafeU2F5WW///EXf//gg2mU96OrwKhnrPr5T3t/JHyYGKfr8N2/vt0A qGr9giWwnD9/v6uD/itsF666nPiZ//np3/7rm/M8N/ MJpt4mx3/y2BFda7/723/+6R//6me/Ps/hm9/97uqKc72UnkEn//jtb/7td7/5w8/+jxfy6Wa/+Pn/n/ dw+L/+03/027NKM0/84+8//+YulaPK8f74s67+/snUsDfRRLmBG//402//5x9+99vX/X3+JveWyvGz3+ 7SHvHbf/b1H2k8646//f6/Xm/Qmc1b33794s30K2// nDPWPQ3+/39yf/Jamar+eA++vf/I+f3uTtj//qoactb4NHG5E9zp1/DRUvpvv+y4+vEeMeEN/Xp4966oAX 7z+8GtWb3+BQ9ic8H2351bimY185ndL7th1Ww23a/y7IZU0SFmCbWKF0ozXqvClicpKwTsnUAAcwKISw Ekj0IF6ZhIHzLJLjX6C2STQgvm9uCEXxNRPhnCJmCb PeCHKRMF6ChPTbSO9MWVd1FKNeIDOkWkRkAHHcowQ3CYAgAUJhUHXgO9PxqeRkyMOdMUPqWc3+ZW5kb2 VmEuKcDXIkJee0IJ1FnGPmLO3DzCTggR9xyzDpJ748lpNdQNJaImuyk2PjFMzmHWMPBO6PVPR5NAE2VZ AgUj4+EU3qo8QyAbCiEHXaGga5BY8VrZPxo7MmHE9R L4EkSVIiEKVJDVF0y7TaRRDnfipgzmzwD2MvSBW6tM8zHVV0IYKiZJtdVBBgMGFaZlW6HTFaWTdoGFSp OHNgMJRfROMfROq3mKFeEI6RP1HeJYOiUUHMMNUmyvPiJm9zRHTPFYGSJNUIHTHSBrNTGFKiJXQ4XaC7 IQAoK4FhnyNojHNeADFFULveKoejIZGciD0kzTotL5 NdOQM8h7VxMY5AC5SiCZRhFLEYLZD3f4EzRDEvfpbrxvggLbYyYPGmJTNbUAZnRH6Axy8wvMQnjaHoJV DAAYysYbhuMI0rwEhzlrqwD6IckQVnVDL+DkZhTU0qli1+FrYnKMQkMfl6CCEfYIhtHIEjAODsPOCvH1 doAWKlJiSwLRHhGlSrYL2Pt1XxsUYsSh0pvsSvFrxG mQEoTiirXTTjTALlLJHgEiUHFBFuVSWeSCNdHDH3WPFgYPVoKUkrYNYoGUK6YFdqICHcVUOkRH5mHmUv YDMoBkEbZZwaYYAaULDuopFCGRPnJCF9DJFbJnUpCARwNFFjVTpaAGHfQLSfIXKjUMY0WUI1JKIgNcMa MDLnKMAeDURzLQFqDXGehiFVJGOiCFVjBZF4UUQfSQ MaYLAfUHrzQRYfVWLjJHmdKYFtKVHaOO2wUxIkUNLtOGKuHPsqWIPbUSIaazUPCKAlGMHxNDQpXVReXQ XkEJHcMDhfSWUrPFLeCMIwKDThLZYlMP3pUhFsDSHdECF6PUCkYQUrYWTdndECNYGkSLIiYOy6TDIyYH DrWTVcSNbjJMUoMFIhOGC3BTJuKNIgYJ7yFtKgYKUo GCR4GzFuXLMzKWGchcEJVCTpSGFlLCK3WbGsAZIfHESfHHfkIACkCTFnGBolTPEqKYAaIM3uJyUvJKKm OTVlZQieUEAiPBFtvwWNESOdRZBpCZNuStKrAHOjPKKvEFqsMJNmUYN8VPX1MWJnFPTmJF2hFwEqEGYs DLF9AMkcNTKfMKNwlmLYIAWmRXOeKFvkGVWnSKFtGH FvVXecFSInYPBbSAR2CTYaTAZuMK1nCqEkYZGcMKZdYMGeRyI2FnOnGnVDoCHavRmrcar5WPtcM2e5IF PoSBrkBK0edkMoPIWtSqqlIv1icXM3FMEyUqfGIb3Xd2CztuE4kcJtPpP5WBY4ZtVsRZ3Y ID Date Data Source [id number] 01/24/2020 06:59:29 AM EDT [facility] Name Value Range Interpretation Code Description Data Savi rce(s) Supporting Document(s) Consultation [facility] KHMWNg8mGpGBZfUd64/SMBwuPIVdz7GnFMfmEIw6NDnwGORpO8VcSRV1cB5qFWW2XFzGEkZuEwIgWAW5 lbm [file] AgICAgICAgICAgICAgICAgICAgICAgICAgICAgICAgICAgICAgICAgICAgICANCiAgICAgICAgICAgIC AgICAgICAgICAgICAgICAgICAgICAgICAgICAgICAg ICAgICAgICAgICAgICAgICAgICAgICAgICAgICAgICAgICAgICAgICAgICAgICAgICAgICAgICANCiAg ICAgICAgICAgICAgICAgICAgICAgICAgICAgICAgICAgICAgICAgICAgICAgICAgICAgICAgICAgICAg ICAgICAgICAgICAgICAgICAgICAgICAgICAgICAgIC AgICAgICANCiAgICAgICAgICAgICAgICAgICAgICAgICAgICAgICAgICAgICAgICAgICAgICAgICAgIC AgICAgICAgICAgICAgICAgICAgICAgICAgICAgICAgICAgICAgICAgICAgICAgICANCiAgICAgICAgIC AgICAgICAgICAgICAgICAgICAgICAgICAgICAgICAg ICAgICAgICAgICAgICAgICAgICAgICAgICAgICAgICAgICAgICAgICAgICAgICAgICAgICAgICAgICAN CiAgICAgICAgICAgICAgICAgICAgICAgICAgICAgICAgICAgICAgICAgICAgICAgICAgICAgICAgICAg ICAgICAgICAgICAgICAgICAgICAgICAgICAgICAgIC AgICAgICAgICANCiAgICAgICAgICAgICAgICAgICAgICAgICAgICAgICAgICAgICAgICAgICAgICAgIC AgICAgICAgICAgICAgICAgICAgICAgICAgICAgICAgICAgICAgICAgICAgICAgICAgICANCiAgICAgIC AgICAgICAgICAgICAgICAgICAgICAgICAgICAgICAg ICAgICAgICAgICAgICAgICAgICAgICAgICAgICAgICAgICAgICAgICAgICAgICAgICAgICAgICAgICAg ICANCiAgICAgICAgICAgICAgICAgICAgICAgICAgICAgICAgICAgICAgICAgICAgICAgICAgICAgICAg ICAgICAgICAgICAgICAgICAgICAgICAgICAgICAgIC AgICAgICAgICAgICANCiAgICAgICAgICAgICAgICAgICAgICAgICAgICAgICAgICAgICAgICAgICAgIC AgICAgICAgICAgICAgICAgICAgICAgICAgICAgICAgICAgICAgICAgICAgICAgICAgICAgICANCjw/eH CaF5mgrCHvroS9T8xxDh5EOs7AKP9dn2GbFVBlOEgd njCeYvuZYcKpDWSxDljQZpf4IPhnCW7QvIFpS1EfK8OoVKdnQN1MFMXkXWSkvPCfDAVoMZYjGiL3GZCv IAjbKL8NgETsMJffFCSwZRPnZaKrKXHcEIWlLCKgBHNtSWSWMQ8YPbLdA8DliY56MJIAXq6+DQplbmRv BmtPVzH7GSBqs6JmIYe0YU9NTGChIfaqk9NyJkEiSG UKIHvjQL9SCIB4NKS4GENuRq1PVLTjX925liEvRP7FSh1HUuNjNB7hmz1JAtWvRLEjGaeRUrd4EQmmVQ 9XmPSlUNeTn80ugDz2ivPnsCHHNXQav3cwULObsUJcYJBWPwVUDOM2UFDpWiwjApAhHSVnKLwtYFJTNF dIRgXmN7Znf7VrHbZ4ZHXgQePeMNydKWPwRzL0YG90 mXjjOC5OJCBaGXQkUI62DMV5XJJjKf5UJh9YLiZqKT4hqk0HMfQuZYTbBlxZDkv0KRlrFX9MbGYxT2Zm lOJca6oWLkKeN8XWIZQyYNFtEt1YVKEjIfPrNOWxDVkjHF2iTYLdKRWMaWatvyK6TX5WTV1htbImYN7X EcTbAd8iQv8XAmKuG6NgP7EnONOwPPLAFAplVZ0ZXA efYQ1iRX5Vp9IEiNMwcB8did6GRJVkRRLkTpbxoo7YKrulD8N4oOcyHAJzPhUaFOHJBWswXS3VWQBsTS I6QAAnKgFdLUJYVhSyH67xDA8WR4Buu54eVcO7XARvUmBcXHfgEW47jGvfprKsbVHwrKuoNX0UAu6+DQ plbmRvYmoNCnhyZWYNCjAgMzcNCjAwMDAwMDAwMDAg FtC6TtKxOp3BAJPgRIIkKQJxLrCwWTRpKWIjKGyqBSDgLFN2MeOsHEQbUFItUZ8RZnDeLZScAzW0YRox ZQSrFLUegh3FLDEsOJVnMVE8LvLiBCSrYHLkAOgkYGNzLKNgOYUfDPFwLTQrMF0YBlZdPLYvHUHqDcFi BUNgGOPrcx6OWUExUTUlPpElRZEaNZLnBBMsIBynOY MsWVD2USD9ZOTcDCHzHR7TSkUjOHLcRBv9CDCyZJAkFSIhka0TSVVqMWOeRPt4MVPiDYSvXMWlSPesXB XhYTHcBVE3FSTxLZCeAM1RQjPkFHJxXUY7FPSjURTuKOLxpe6MVNGuEASoJDpsUOBpMVXsZSXqHOekEY JtQMSdOOQlELAtXIHoEL3PApLqEOCcBFGxTBJyHUBz XFErpo8XFTRfCCZsYiM9PGFvNGEdUXLlMUvgWILkAFGeHlL3DSDpTXEbMZ8NKlIvVXXsHQW1BdSvMPWo NLCjoh3ZTCOzGYFtHUN5AaOfIVYnXRSaTYbhCPLlADF7CZo7AJFeWXQlMN3NGfZqKRBuKYT9SVNfBTMj YBUvjy4DRZVrXZZyJNy0RlNrWTCnCEXpXSouPHMeVL G4FWBkBTFrEIVkHZ8DLbBmGIZiUADtBrAwIOYsYNIhug1FXQYgKIJrRbKoMBWcCQDvRCQkNVufZDXfPU Q6ANM3TXUgWBTsJD6OHcBuVFArQzcoPqIqYFAvYYTcfv0ETMIuDIOmBRH0PSKbVMUkNJOfPCjhMJFmUW G4YASpFISmESInIE8YWrUoEMChZidzOfDmUTMlNLBh gc6UZEHdEERlMYZ7NoOoYEYbSVAjWCicAKRdUSG6ViToXFToORJvBR9NYwQfHTGkYyCkPgmvIYCyFXMe av7APVBiMLGrIVIfSyJnLFVuRTHvNRsxZETiMUWtTyA9JODoKGZlQE7VBkMbLPDbRmR0UUVyRGNsBAAz gc2VpWYycYituk0ABGmPFv8ZcQpxGJV0TRszPp0mqZ YeLgVaSGHETj1MfjXsVRBxBUFRHTmjYBAsCTVkNLFtXaX6PYJjKgTiHCm7TkkzNgQdEAQuLXI7MZRsLj T8AFLaIgOdRAI1OyFrAWV8GfHgA5YkXGKkV6GjHxhuMoC+NW7vMUe+Jy4Jr5UeamL5xqIxTRjbMfM7DH 3PRGHWI2LFFu== ID Date Data Source [id number] 01/24/2020 06:05:29 AM EDT [facility] Name Value Range Interpretation Code Description Data Savi rce(s) Supporting Document(s) Leukocytes [#/volume] in Blood by Automated count 13.1 10*3/uL 4-10 H [facility] Erythrocytes [#/volume] in Blood by Automated count 5.28 10*6/uL 4.6- 6.1 [facility] Hemoglobin [Mass/volume] in Blood 14.7 g/dL 13.5-18 [facility] Hematocrit [Volume Fraction] of Blood by Automated count 45.0 % 4 1-53 [facility] Erythrocyte mean corpuscular volume [Entitic volume] by Auto mated count 85.2 fL 80-96 [facility] Erythrocyte mean corpuscular hemoglobin [Entitic mass] by Automated count 27.9 pg 27-33 [facility] Erythrocyte mean corpuscular hemoglobin concentration [Mass/volume] by Automated count 32.7 g/dL 32.0-36.0 [facility] distribution width [Ratio] by Automated count 15.5 % 11.5-14.5 H [facility] Platelets [#/volume] in Blood by Automated count 117 10*3/uL 150-400 L [facility] Differential cell count method - Blood [facility] Neutrophils/100 leukocytes in Blood by Automated count 61 % [facility] Lymphocytes/100 leukocytes in Blood by Automated count 28 % [facility] Monocytes/100 leukocytes in Blood by Automated count 7 % [facility] Eosinophils/100 leukocytes in Blood by Automated count 3 % [facility] Basophils/100 leukocytes in Blood by Automated count 1 % [facility] Neutrophils [#/volume] in Blood by Automated count 8.07 10*3/uL 1.8-7 .0 H [facility] Lymphocytes [#/volume] in Blood by Automated count 3.68 10*3/uL 1.2-4 .0 [facility] Monocytes [#/volume] in Blood by Automated count 0.85 10*3/uL 0-0.8 H [facility] Eosinophils [#/volume] in Blood by Automated count 0.40 10*3/uL 0-0.5 [facility] Basophils [#/volume] in Blood by Automated count 0.10 10*3/uL 0-0.2 [facility] Nucleated erythrocytes/100 leukocytes [Ratio] in Blood by Automated count 0 /100{WBCs} 0-0 [facility] ID Date Data Source [id number] 01/24/2020 06:14:04 AM [facility] Name Value Range Interpretation Code Description Data Savi rce(s) Supporting Document(s) Heparin unfractionated [Units/volume] in Platelet poor plasma by Chromogenic method [facility] ID Date Data Source [id number] 01/24/2020 06:23:04 AM [facility] Value Range Interpretation Code Description Data Savi rce(s) Supporting Document(s) Albumin [Mass/volume] in Serum or Plasma by Bromocresol green (BCG) dye binding method 3.4 g/dL 3.5-5.2 L [facility] Bilirubin.total [Mass/volume] in Serum or Plasma 0.9 mg/dL <1.2 [facility] Calcium [Mass/volume] in Serum or Plasma 8.6 mg/dL 8.6-10.0 [facility] Chloride [Moles/volume] in Serum or Plasma 102 mmol/L 98-107 [facility] Creatinine [Mass/volume] in Serum or Plasma 1.53 mg/dL 0.70-1.20 H [facility] Glucose [Mass/volume] in Serum or Plasma 116 mg/dL 70-140 [facility] Alkaline phosphatase [Enzymatic activity/volume] in Serum or Plasma 79 U/L 40-129 [facility] Potassium [Moles/volume] in Serum or Plasma 4.3 mmol/L 3.4-5.1 [facility] Protein [Mass/volume] in Serum or Plasma 7.2 g/dL 6.4-8.3 [facility] Sodium [Moles/volume] in Serum or Plasma 136 mmol/L 136-145 [facility] Aspartate aminotransferase [Enzymatic activity/volume] in Serum or Plasma 17 U/L <40 [facility] Urea nitrogen [Mass/volume] in Serum or Plasma 15 mg/dL 6-20 [facility] Osmolality of Serum or Plasma by calculation 284 mosm/kg 275-300 [facility] Creatinine/Urea nitrogen [Mass Ratio] in Serum or Plasma 10 [facility] Bicarbonate [Moles/volume] in Serum 22 mmol/L 22-29 [facility] Alanine aminotransferase [Enzymatic activity/volume] in Seru m or Plasma 16 U/L <41 [facility] Anion gap 3 in Serum or Plasma 12 mmol/L 8-15 [facility] Albumin/Globulin [Mass Ratio] in Serum or Plasma 0.9 [facility] Glomerular filtration rate/1.73 sq M pre dicted among non-blacks [Volume Rate/Area] in Serum or Plasma by Creatinine-based formula (MDRD) 53 mL/min/1.73m2 >60 L [facility] Glomerular filtration rate/1.73 sq M pre dicted among blacks [Volume Rate/Area] in Serum or Plasma by Creatinine-based formula (MDRD) 61 mL/min/1.73m2 >60 [facility] ID Date Data Source [id number] 01/24/2020 06:23:04 AM [facility] Value Range Interpretation Code Description Data Savi rce(s) Supporting Document(s) Magnesium [Mass/volume] in Serum or Plasma 2.0 mg/dL 1.6-2.6 [facility] ID Date Data Source [id number] 01/24/2020 06:23:04 AM [facility] Value Range Interpretation Code Description Data Savi rce(s) Supporting Document(s) Phosphate [Mass/volume] in Serum or Plasma 3.7 mg/dL 2.5-4.5 [facility] ID Date Data Source [id number] 01/24/2020 06:23:04 AM [facility] Value Range Interpretation Code Description Data Savi rce(s) Supporting Document(s) Troponin T.cardiac [Mass/volume] in Serum or Plasma 0.03 ng/mL <0.01 H [facility] ID Date Data Source [id number] 01/24/2020 12:02:46 AM [facility] Service Cmnt XXX-Imp : NoneMicroorganism XXX Cult : 2019 nCoV Real-Time RT-PCR: NOT DETECTEDTest performed using the [employer] Xpert Xpress SARS-CoV-2 assay. This test is only for use under the Food and Drug Administration's Emergency Use Authorization. Additional information is available on the following FDA websites for health care providers and patients. https://www.fda.gov/media/377854/download , https://www.Cleverbug.gov/ZipMatch/822908/download Name Value Range Interpretation Code Description Data Savi rce(s) Supporting Document(s) ID Date Data Source [id number] [facility]/23/2020 10:41:[facility]-Imp : NoneMicroorganism XXX Cult : 2019 nCoV Real-Time RT-PCR: NOT DETECTEDTest performed using the [employer] Xpert Xpress SARS-CoV-2 assay. This test is only for use under the Food and Drug Administration's Emergency Use Authorization. Additional information is available on the following FDA websites for health care providers and patients. https://www.fda.gov/media/346481/download , https://www.Cleverbug.gov/ZipMatch/426468/download Name Value Range Interpretation Code Description Data Savi rce(s) Supporting Document(s) Microorganism identified in Unspecified specimen by [facility] This lab was ordered by [facility] and reported by [facility]. ID Date Data Source [id number] 01/24/2020 12:00:03 AM [facility] Name Value Range Interpretation Code Description Data Savi rce(s) Supporting Document(s) Leukocytes [#/volume] in Blood by Automated count 15.1 10*3/uL 4-10 H [facility] Erythrocytes [#/volume] in Blood by Automated count 4.98 10*6/uL 4.6- 6.1 [facility] Hemoglobin [Mass/volume] in Blood 14.3 g/dL 13.5-18 [facility] Hematocrit [Volume Fraction] of Blood by Automated count 42.3 % 4 1-53 [facility] Erythrocyte mean corpuscular volume [Entitic volume] by Auto mated count 84.9 fL 80-96 [facility] Erythrocyte mean corpuscular hemoglobin [Entitic mass] by Automated count 28.7 pg 27-33 [facility] Erythrocyte mean corpuscular hemoglobin concentration [Mass/volume] by Automated count 33.8 g/dL 32.0-36.0 [facility] E[facility] distribution width [Ratio] by Automated count 15.4 % 11.5-14.5 H [facility] Platelets [#/volume] in Blood by Automated count 124 10*3/uL 150-400 L [facility] Differential cell count method - Blood [facility] Neutrophils/100 leukocytes in Blood by Automated count 66 % [facility] Lymphocytes/100 leukocytes in Blood by Automated count 25 % [facility] Monocytes/100 leukocytes in Blood by Automated count 5 % [facility] Eosinophils/100 leukocytes in Blood by Automated count 3 % [facility] Basophils/100 leukocytes in Blood by Automated count 1 % [facility] Neutrophils [#/volume] in Blood by Automated count 9.96 10*3/uL 1.8-7 .0 H [facility] Lymphocytes [#/volume] in Blood by Automated count 3.85 10*3/uL 1.2-4 .0 [facility] Monocytes [#/volume] in Blood by Automated count 0.80 10*3/uL 0-0.8 [facility] Eosinophils [#/volume] in Blood by Automated count 0.43 10*3/uL 0-0.5 [facility] Basophils [#/volume] in Blood by Automated count 0.09 10*3/uL 0-0.2 [facility] Nucleated erythrocytes/100 leukocytes [Ratio] in Blood by Automated count 0 /100{WBCs} 0-0 [facility] ID Date Data Source [id number] 01/23/2020 10:27:27 PM [facility] Name Value Range Interpretation Code Description Data Savi rce(s) Supporting Document(s) Troponin I.cardiac [Mass/volume] in Blood 0.08 ng/mL 0.00-0.08 [facility] ID Date Data Source [id number] 01/23/2020 10:32:07 PM [facility] Name Value Range Interpretation Code Description Data Savi rce(s) Supporting Document(s) Leukocytes [#/volume] in Blood by Automated count 4-10 [facility] CALLED TO YOGESH PRADHAN RN EER 2227 BY 3650 Erythrocytes [#/volume] in Blood by Automated count 4.6-6. 1 [facility] Hemoglobin [Mass/volume] in Blood 13.5-18 [facility] Hematocrit [Volume Fraction] of Blood by Automated count 4 1-53 [facility] Erythrocyte mean corpuscular volume [Entitic volume] by Automate d count 80-96 [facility] Erythrocyte mean corpuscular hemoglobin [Entitic mass] by Au tomated count 27-33 [facility] Erythrocyte mean corpuscular hemoglobin concentration [Mass/volume] by Automated count 32.0-36.0 [facility] Erythrocyte distribution width [Ratio] by Automated count 11.5-14.5 [facility] Platelets [#/volume] in Blood by Automated count 150-400 [facility] Sample quality of Dried blood spot [facility] Differential cell count method - Blood [facility] ID Date Data Source [id number] 01/23/2020 10:44:22 PM [facility] Name Value Range Interpretation Code Description Data Savi rce(s) Supporting Document(s) Heparin unfractionated [Units/volume] in Platelet poor plasma by Chromogenic method 0.80 U/ml [facility] ID Date Data Source [id number] 01/23/2020 10:55:12 PM [facility] Name Value Range Interpretation Code Description Data Savi rce(s) Supporting Document(s) Bicarbonate [Moles/volume] in Serum 25 mmol/L 22-29 [facility] Chloride [Moles/volume] in Serum or Plasma 102 mmol/L 98-107 [facility] Creatinine [Mass/volume] in Serum or Plasma 1.50 mg/dL 0.70-1.20 H [facility] Glucose [Mass/volume] in Serum or Plasma 110 mg/dL 70-140 [facility] Potassium [Moles/volume] in Serum or Plasma 4.3 mmol/L 3.4-5.1 [facility] Sodium [Moles/volume] in Serum or Plasma 139 mmol/L 136-145 [facility] Urea nitrogen [Mass/volume] in Serum or Plasma 15 mg/dL 6-20 [facility] Anion gap 3 in Serum or Plasma 12 mmol/L 8-15 [facility] Osmolality of Serum or Plasma by calculation 289 mosm/kg 275-300 [facility] Creatinine/Urea nitrogen [Mass Ratio] in Serum or Plasma 10 [facility] Calcium [Mass/volume] in Serum or Plasma 8.4 mg/dL 8.6-10.0 L [facility] Glomerular filtration rate/1.73 sq M pre dicted among non-blacks [Volume Rate/Area] in Serum or Plasma by Creatinine-based formula (MDRD) 54 mL/min/1.73m2 >60 L [facility] Glomerular filtration rate/1.73 sq M pre dicted among blacks [Volume Rate/Area] in Serum or Plasma by Creatinine-based formula (MDRD) 62 mL/min/1.73m2 >60 [facility] ID Date Data Source [id number] 01/15/2020 02:06:57 PM EDT [facility] Measurements & CalculationsHeight: 74 inches 187.96 cm Weight: 466.6 pounds 212.09 kg Body Mass Index (BMI): 60.12BMI Interpretation: Morbidly ObeseBody Surface Area (BSA): 3.12Vital SignsTemperature: 97.4F 36.33C tympanic Pulse Rate: 60 beats/minuteRespiratory Rate: 16 respirations/minuteBlood Pressure: 120/84 right arm sitting automaticO2 Saturation: 96% room airVital Signs performed by: Binta Sanchez , January 15, 2020 2:14 PMInitial Intake Information From: patientRoom #: 14Infectious Disease / Travel ScreeningRecent travel for you or any close contacts? NoHave you had any close contact with anyone diagnosed with or under investigation for COVID-19 (coronavirus)? NoFever? NoRespiratory symptoms: cough, cold, congestion, shortness of breath, difficulty breathing? NoLoss of smell? NoLoss of taste? NoSmoking, Tobacco, Vaping or Smoke Exposure StatusSmoke Status: former smokerTobacco Use: NoDo you vape? NoPassive Smoke Exposure: NoHealthcare HistorySince your last office visit...Have you been admitted to the hospital? NoHave you been to an emergency room (ER) or urgent care clinic? NoHave you seen another healthcare provider? Yes - dr Murguia you seen a dentist? NoIntake performed by: Binta Sanchez January 15, 2020 2:10 PMRate Your HealthIn general, would you say your health is? PoorPain AssessmentAre you currently having any pain which... You would like your provider to address? Yes Affects your activity level? YesDepression Screening - PHQ-2Over the last two weeks, have you... Had little interest or pleasure in doing things? Not at all Been feeling down, depressed, or hopeless? Not at all PHQ-2 Score: 0Anxiety Screening - OVIDIO-2Over the last two weeks, have you been... Feeling nervous, anxious, or on edge? Not at all Unable to stop or control worrying? Not at all OVIDIO-2 Score: 0Food InsecurityWithin the past year...Did you worry whether your food would run out before you got money to buy more? NoWas there a time when the food you bought didn't last and you didn't have money to get more? NoPRAPARE Sociodemographic Characteristics Race: White Ethnicity: Not or Preferred Language: EnglishCytoLogic and [employer] In the past year, have you or any family members you live with been unable to get any of the following when it was really needed? Admits Insecurity: clothingWithin the past year did you worry whether your food would run out before you got money to buy more? NoWithin the past year was there a time when the food you bought didn't last and you didn't have money to get more? NoPain AssessmentPain ScaleNumeric Rating Scale: 10 / 10Location: hipDuration: chronicCharacter/Quality: throbbingIs the pain radiating? NoOther DescriptorsAggravating Factors: walking,sitting,laying,rising froma chairScreening, Brief Intervention, & Referral to Treatment (SBIRT)Pre-Screening Questions How many times have you have 5 or more drinks in a day? 0How many times have you used an illegal drug or used a prescription medication for a non- medical reason? 0Performed by: Binta Sanchez , January 15, 2020 2:12 PMPatient History Medical History:No known medical historySurgical History:Pin in hip- 15years oldFamily History:No known family historySocial/Personal History: Chief Complaintpain management-medication History of Present Illness (HPI)Chronic right hip pain due to osteoarhtritis. (X ray last year showed mild arthritis.)Reportedly saw Ortho last year and at the time patient tells me that they did not see surgery as an option due to morbid obesity (record unavailable.)Talking with Bariatric Surgeon about gastric bypass but this has been put on hold due to pandemic. Working on getting diet classes set up online but having trouble with audio.Did not get any relief from Meloxicam in the past and no relief with over the counter medications as well.Was getting some relief from Litchfield 5 mg but this is less effective than it used to be.No adverse effects from Litchfield.HPI performed by: John Martinez MD, January 15, 2020 2:57 PMTransitions of Care InboundProblem ReviewProblem List was reviewed and/or updated during this visit.Medication Reconciliation & ReviewMedication List was reviewed and/or updated during this visit, including review of any [id number]-[id number] medications, herbal therapies, and/or supplements.Allergy ReviewAllergy List was reviewed and/or updated during this visit.Provider Calculated and Reviewed all Clinical Protocols for patient today. Review of Systems General: Denies dizziness, fatigue. Cardiovascular: Denies chest pain. Respiratory: Denies shortness of breath. Gastrointestinal: Denies constipation. Genitourinary: Denies incomplete emptying. Physical ExamGeneral Appearance: well nourished, well hydrated, no acute distress. Walkng with cane.Respiratory, Auscultation: clear to auscultation bilaterally; no rales, rhonchi, or wheezesRespiratory, Effort: no intercostal retractions or use of accessory musclesCardiovascular, Auscultation: S1, S2 audible; no murmur, rub, or gallop; RRRGait & Station: normalOrientation: oriented to time, place, and personMood & Affect: no depression, anxiety, or agitationJudgment & Insight: intactCare Management Plan Transitions of CareInboundRate Your HealthIn general, would you say your health is? PoorAssessment & Plan Problems:Assessed:Pain in right hip (ICD-719.45) (QUG98-I54.551) Assessment: Instructions: Fair but lessening control.Temporarly increase the Litchfield from 5 mg to 7.5 mg.The ultimate answer is weight loss (through bariatric surgery) and Ortho surgery although this is delayed by the pandemic.Recheck one month, sooner as needed.Patient Instructions/Care Plan: Pain in right hip: Fair but lessening control.Temporarly increase the Litchfield from 5 mg to 7.5 mg.The ultimate answer is weight loss (through bariatric surgery) and Ortho surgery although this is delayed by the pandemic.Recheck one month, sooner as needed. Plan developed in collaboration with patient and/or familyMedications:NORCO 7.5-325 MG ORAL TABLETEQL NICOTINE POLACRILEX 2 MG MOUTH/THROAT LOZENGENICODERM CQ 7 MG/24HR TRANSDERMAL PATCH 24 HOURNICODERM CQ 14 MG/24HR TRANSDERMAL PATCH 24 HOUROMEPRAZOLE 40 MG ORAL CAPSULE DELAYED RELEASECOLACE 100 MG ORAL CAPSULEHYDROCODONE-ACETAMINOPHEN 5-325 MG ORAL TABLETMedication Changes:New Prescription:NORCO 7.5-325 MG ORAL TABLET-One po q6h prn severe hip pain. MDD 4. Qty: 60[Tablet] Refills: 0 Method: ElectronicRemoved:MELOXICAM 15 MG ORAL TABLET-qdAllergies:SOMA (Severe)Orders:Adult - Ofc Vst, EST, Level III [CPT-992 13] Medications:NORCO 7.5-325 MG ORAL TABLET (HYDROCODONE-ACETAMINOPHEN) One po q6h prn severe hip pain. MDD 4. #60[Tablet] x 0 Route:ORAL Entered and Authorized by: John Martinez MD Method used: Electronically to [facility] (retail) [address] [place] [address] Note to Pharmacy: Route: ORAL; RxID: [id number] signed by John Martinez MD on 01/15/2020 at 3:18 PM Name Value Range Interpretation Code Description Data Savi rce(s) Supporting Document(s) ID Date Data Source [id number] 11/20/2019 01:34:12 PM EDT [facility] Measurements & CalculationsWeight: 470 pounds 213.64 kg Vital Signs performed by: Miguel Tafoya MA, November 20, 2019 1:35 PMAssessment & Plan Orders:[id number] Vst-Est Level I [CPT-39224] Labs In-House Name Value Range Interpretation Code Description Data Savi rce(s) Supporting Document(s) ID Date Data Source [id number] 11/10/2019 08:47:59 AM EDT [facility] Measurements & CalculationsHeight: 74 inches (6 ft. 2 in.) 187.96 cm Weight: 469 pounds 4 oz. 213.30 kg Body Mass Index (BMI): 60.47BMI Interpretation: Morbidly ObeseBody Surface Area (BSA): 3.13Weight Management Education Done (Nutrition/Physical Activity)Vital SignsTemperature: 98.6FPulse Rate: 99 beats/minuteRespiratory Rate: 16 respirations/minuteBlood Pressure: 144/78 Vital Signs performed by: Emely Schmitt, November 10, 2019 8:50 AMVital Signs performed by: Emely Schmitt, November 10, 2019 8:50 AMInitial Intake Information from: patientRoom #: 13Smoking, Tobacco, Vaping or Smoke Exposure StatusSmoke Status: former smokerTobacco Use: NoDo you vape? NoPassive Smoke Exposure: NoHealthcare HistorySince your last office visit...Have you been admitted to the hospital? NoHave you been to an emergency room (ER) or urgent care clinic? NoHave you seen another healthcare provider? Yes - dr cruz, dr sultanaHave you seen a dentist? NoRate Your HealthIn general, would you say your health is? FairPain AssessmentAre you currently having any pain which... You would like your provider to address? No Affects your activity level? NoDepression Screening - PHQ-2Over the last two weeks, have you... Had little interest or pleasure in doing things? Not at all Been feeling down, depressed, or hopeless? Not at all PHQ-2 Score: 0Anxiety Screening - OVIDIO-2Over the last two weeks, have you been... Feeling nervous, anxious, or on edge? Not at all Unable to stop or control worrying? Not at all OVIDIO-2 Score: 0Infectious Disease / Travel ScreeningRecent travel for you, your family, and/or any sexual partners? NoScreening, Brief Intervention, & Referral to Treatment (SBIRT)Pre-Screening Questions How many times have you have 5 or more drinks in a day? 0How many times have you used an illegal drug or used a prescription medication for a non- medical reason? 0Performed by: Emely Schmitt, November 10, 2019 8:55 A MPatient History Social/Personal History: Chief Complaintfollow up Labs, History of Present Illness (HPI)patient is here for a follow up on labs from 10/31/19. Patient is planning on having gastric bypas next month, and has appt with us december 04 for clearance.no other concerns at this time. I, Mariano Glasgow MA, am scribing for, and in the presence of, Candelario Casillas, DO pt here today to go over his labs. pt's blood sugars are high, pt states he may not have fasted for the lab draw. pt's a1c was elevated. Transitions of Care InboundAdult Preventive CareProvider Calculated and Reviewed all Clinical Protocols for patient today. Labs/Meds/Other Counseling-Nutrition and Physical Activity:BMI Interpretation: Morbidly Obese (11/10/2019) Counseling: Done (11/10/2019) Physical Activity: Done (11/10/2019)Review of Systems General: Denies loss of appetite, chills, dizziness, fatigue, fever, continued fever, headache, feeling ill, sweats, night sweats, sleep disturbances, weight loss. Cardiovascular: Denies chest pain, palpitations, feeling faint, trouble breathing w/exertion, SOB upon lying down, SOB at night, peripheral edema, elevated blood pressure, decreased heart rate. Respiratory: Denies cough, difficulty breathing, shortness of breath, excessive sputum, coughing up blood, wheezing, chest pain. Gastrointestinal: Denies nausea, vomiting, bleeding, burning, itching, irritation, cramps, diarrhea, bloody diarrhea, watery diarrhea, constipation, pain or discomfort, feeling any lumps or bumps, pain with BM, pain during receptive anal sex, change in bowel habits, fecal incontinence, abdominal pain, blood in stool, black or tarry stools, jaundice, heartburn, urge to defecate. Physical ExamGeneral Appearance: well nourished, well hydrated, no acute distress, morbidly obeseRespiratory, Auscultation: clear to auscultation bilaterally; no rales, rhonchi, or wheezesRespiratory, Effort: no intercostal retractions or use of accessory musclesCardiovascular, Auscultation: S1, S2 audible; no murmur, rub, or gallop; RRRPeripheral Circulation: 1+ edemaGait & Station: normalOrientation: oriented to time, place, and personMood & Affect: no depression, anxiety, or agitationJudgment & Insight: intactCare Management Plan Transitions of CareInboundRate Your HealthIn general, would you say your health is? FairAssessment & Plan Problems:Added: Ex-smoker (ICD-V15.82) (ICD10- Z87.891)Ankle edema (ICD-719.07) (UYV75-Q66.0)Assessed:Obesity, unspecified (NFJ11-E38.9) Assessment: for by pass surgeryAssessment not SavedEx-smoker ([id number]): Medication Changes:New Prescription:EQL NICOTINE POLACRILEX 2 MG MOUTH/THROAT LOZENGE-one lozenge slowly dissolved in mouth q2h prn Qty: 150[Lozenge] Refills: 1 Method: ElectronicOrders:Adult - Ofc Vst, EST, Level III [CPT-66045] COMP METABOLIC PANEL [CPT-11631] CBC W/DIFF [CPT-41142] HgBA1c [CPT-70610] LIPID PANEL [CPT-45667] TSH [CPT-44023] Vitamin D 250H Unspecified [CPT-08697] Medications:EQL NICOTINE POLACRILEX 2 MG MOUTH/THROAT LOZENGE (NI COTINE POLACRILEX) one lozenge slowly dissolved in mouth q2h prn #150[Lozenge] x 1 Route:MOUTH/THROAT Entered and Authorized by: Candelario Casillas DO Method used: Electronically to [facility] (retail) [address] [place] [address] Note to Pharmacy: Route: MOUTH/THROAT; RxID: [id number]] Name Value Range Interpretation Code Description Data Savi rce(s) Supporting Document(s) ID Date Data Source [id number] 11/08/2019 09:58:45 AM EDT [facility] [address] [address]Tfi# Surgical Pathology ReportAccession #:[id number](s) ReceivedA: Antrum bxs, r/o H. pyloriClinical Diagnosis and HistoryEsophageal reflux DIAGNOSISSTOMACH, ANTRUM, BIOPSY: MILD CHRONIC GASTRITIS. NEGATIVE FOR HELICOBACTER PYLORI BY IMMUNOSTAIN. Gross DescriptionReceived in formalin labeled "antrum biopsies rule out H. pylori" are twotan-pink irregular fragments of tissue measuring 0.3 and 0.7 cm. Entirelysubmitted as A1. 1 + 1. Processed at [facility], Histopathology, [address] [place] [address], [id number].jmarley/[email or web address] Reported: 11/08/2019Electronically Signed Out By Aston Rojas MD [facility] This report may include immunohistochemical or in-situ hybridizationresults. Testing was developed and the performance characteristicsdetermined by [facility] as required by CLIA '88. The FDAhas determined that approval for specific use is not necessary forclinical use. The quality of Hematoxylin and Eosin stains and asapplicable, for all immunohistochemical and/or special stains, in cludingpositive and negative controls, were reviewed and considered appropriate.ICD codes K21.9 K29.30CPT codesA: 65934M, 26991i Name Value Range Interpretation Code Description Data Savi rce(s) Supporting Document(s) ID Date Data Source [id number] 11/06/2019 09:31:43 AM EDT [facility] NT INFORMATIONPatient MRN Name Date of Age Gend*PT [id number] Wei Rothman 1970 49 years M OPPT Location Admission Date/Time Visit ID [facility] 0725 --- Himanshu Guerrier MD([id number]) EPI ID CSN Admitting Provider [id number] Himanshu Guerrier MD([id number])Endoscopic Gastroduodenoscopy Procedure NotePatient: Wei BryansukhjinderSurgery Date: November 06, 2019Surgeon(s):RUSSELL Andrewre-Operative Diagnosis:Esophageal reflux [K21.9]Post-Operative Diagnosis:Esophageal reflux [K21.9]Recommendations:1. Will send biopsy results to Dr. Cruz's officeSedation: Monitored Anesthesia Care (MAC) (see anesthesia report).ASA Class: IIIOther Equipment Type Equipment Setting Setting Low Setting High Applied By Endoscope Himanshu Guerrier MD Endoscope Pediatric (ENDO)In dications: Esophageal reflux [K21.9]Consent:After obtaining history and performing the physical examination, the procedure,indications, potential complications, including but not limited to bleeding,perforation, infection, adverse medication reaction, and alternatives wereexplained to the patient. Patient appeared to understand the benefits and risksof this procedure. Informed consent was obtained from the patient afterproviding opportunity for questions.Procedure Details:The patient was placed in the left lateral decubitus position and monitored perendoscopy protocol. The gastroscope was inserted into the mouth and advancedunder direct visualization to Duodenum 3rd portion. A careful inspection wasmade as the gastroscope was withdrawn, including a retroflexed view of theproximal stomach; findings and interventions are described below. Aftercompletion of the examination, the patient was transferred to the recovery room.* No implants in log *Findings:Oropharynx: NormalEsophagus: NormalEG Junction: Normal at 42 cmCardia: NormalFundus: NormalBody: NormalAntrum: Normal. Biopsy for H pylori taken.Pylorus: NormalDuodenum Bulb: NormalDuodenum 2nd Portion: NormalDuodenum 3rd Portion: NormalSpecimens:ID Type Source Tests Collected by Time DestinationA : Antrum BXS R/O h pylori Tissue Biopsy SURGICAL PATHOLOGY EXAM Himanshu Guerrier MD 11/06/2019 0918Complications: None; patient tolerated the procedure well.Estimated Blood Loss: Lilly Guerrier MD11/06/20199:31 AM Name Value Range Interpretation Code Description Data [facility] Supporting Document(s) ID Date Data Source [id number] 11/06/2019 08:47:46 AM EDT [facility] NT INFORMATIONPatient MRN Name Date of Age Gend*PT [id number] Wei Rothman 1970 49 years M OPPT Location Admission Date/Time Visit ID Attending [facility] 11/06/[address] --- Himanshu Guerrier MD([id number]) EPI ID CSN Admitting Provider [id number] Himanshu Guerrier MD([id number])H&P reviewed. The patient was examined and there are no changes to the H&P.Himanshu Guerrier MD8:47 AM Name Value Range Interpretation Code Description Data [facility](s) Supporting Document(s) ID Date Data Source [id number] 11/06/2019 08:47:41 AM EDT [facility] NT INFORMATIONPatient MRN Name Date of Age Gend*PT [id number] Wei Rothman 1970 49 years M OPPT Location Admission Date/Time Visit ID Attending [facility] 11/06/[address] --- Himanshu Guerrier MD([id number]) EPI ID CSN Admitting Provider [id number] Himanshu Guerrier MD([id number])Pre-Procedure History and Physical:Past Medical History:Diagnosis Date Arthritis GERD (gastroesophageal reflux disease) Hip pain Sleep apnea not officailly doagnosed, pt states he has "some of the symptoms"Past Surgical History:Procedure Laterality Date HIP SURGERY pins placed at 15 yrs oldAllergiesAllergen Reactions Soma [Carisoprodol] Hives and Facial SwellingMedications Prior to AdmissionMedication Sig Dispense Refill Last Dose docusate sodium (COLACE) 100 MG capsule Take 100 mg by mouth 3 (three) times aday as needed for constipation Unknown at Unknown time HYDROcodone-acetaminophen (NORCO) 5-325 MG per tablet Take 1 tablet by mouthevery 6 (six) hours as needed for pain 11/05/2019 at Unknown time ibuprofen (ADVIL,MOTRIN) 200 MG tablet Take 200 mg by mouth every 6 (six)hours as needed for pain Past Week at Unknown time nicotine (NICODERM CQ) 14 MG/24HR Place 1 patch on the skin daily 11/06/2019at Unknown time nicotine polacrilex (COMMIT) 2 MG lozenge Apply 2 mg to the mouth or throat asneeded for smoking cessation Unknown at Unknown time omeprazole (PRILOSEC) 20 MG capsule Take 20 mg by mouth daily 11/05/2019 atUnknown timeBP 133/64 (BP Location: Right lower arm, Patient Position: Sitting ) | Pulse 90| Temp 98.1 F (Tympanic) | Resp 18 | Ht 1.854 m (6' 1") | Wt (!) 181.4 kg(400 lb) | SpO2 92% | BMI 52.77 kg/m The scanned [09/20/19] history and physical were reviewed and the patient wasexamined.There are no changes to the H&P.Himanshu Guerrier MD11/06/19 8:47 AM Name Value Range Interpretation Code Description Data Savi rce(s) Supporting Document(s) ID Date Data Source [id number] 10/31/2019 10:21:01 AM EST [facility] In-House Blood TestsDate/Time Colle cted: October 31, 2019 8:20 AMTest Result Reference Range Normal ValueComments: blood draw done in office, taken from left hand, tolerated well.Emely Schmitt, October 31, 2019 10:21 AMAssessment & Plan Orders:[id number] Vst-Est Level I [CPT-37083] 30429 - Venipuncture [CPT-79129] Name Value Range Interpretation Code Description Data Savi rce(s) Supporting Document(s) ID Date Data Source [id number] 10/31/2019 08:20:00 AM EST [facility] Name Value Range Interpretation Code Description Data Savi rce(s) Supporting Document(s) BG FASTING 206 mg/dL 70-100 H [facility] ID Date Data Source [id number] 10/31/2019 08:20:00 AM EST [facility] Name Value Range Interpretation Code Description Data Savi rce(s) Supporting Document(s) HGBA1C 6.1 % N [facility] ID Date Data Source [id number] 10/20/2019 01:09:31 PM EST [facility] Health Measurements & CalculationsWeight: 454 pounds 7 oz. 206.56 kg Vital Signs performed by: Miguel Tafoya MA, October 20, 2019 1:21 PMAssessment & Plan Orders:[id number] Vst-Est Level I [CPT-38356] Name Value Range Interpretation Code Description Data Savi rce(s) Supporting Document(s) ID Date Data Source [id number] 09/20/2019 08:33:41 PM EST [facility] Name Value Range Interpretation Code Description Data Savi rce(s) Supporting Document(s) HEMOGLOBIN A1C @ 5.6 % (4.0-6.0) [facility] Performed using Siemens Douglas immunoassa y.Care must be taken when interpreting [id number] in patients with a hemoglobin variantor decreased erythrocyte lifespan. Values 5.7 - 6.4% suggest prediabetes.Values >=6.5% are diagnostic for diabetes.REFERENCE: DIABETES CARE 2018: 41(S13-S27). EST AVERAGE GLUCOSE 114 mg/dL [facility] ID Date Data Source [id number] 09/20/2019 08:01:07 PM EST [facility] Name Value Range Interpretation Code Description Data Savi rce(s) Supporting Document(s) TSH,ULTRASENSITIVE @ 4.670 mIU/L (0.360-4.170) H [facility] Procedure Social History Code Duration Value Status Description Data Source(s ) 05/14/2020 12:00:00 AM EDT Patient is a current smoker, smokes every day completed Patient is a current smoker, smokes every day [facility] ( [facility]) Alcohol intake 01/24/2020 12:00:00 AM EDT Ex-drinker (finding) comp leted Ex- drinker (finding) [facility] Smoking 01/24/2020 12:00:00 AM EDT Current some day smoker com pleted Current some day smoker [facility] Alcohol intake 11/06/2019 12:00:00 AM EDT Never completed [facility] Smoking 11/06/2019 12:00:00 AM EDT Current some day smoker com pleted Current some day smoker [facility] Vital Signs ID Date Data Source UNK Name Value Range Interpretation Code Description Data Source(s) Body weight 8018 [oz_av] 8018 [oz_av] CASSIE ([facility]) Systolic blood pressure 119 mm[Hg] 119 mm[Hg] A THENA ([facility]) Body mass index (BMI) [Ratio] 64.3 kg/m2 64.3 k g/m2 [facility] ([facility]) Body height 74 [in_i] 74 [in_i] [facility] ([facility]) Diastolic blood pressure 76 mm[Hg] 76 mm[Hg] [facility] ([facility]) Body surface area Derived from formula 3.14 m2 3.14 m2 [facility] ([facility], ) Body weight 220.903 kg 220.903 kg [facility] ([facility], ) [place] body weight 184 [lb_av] 184 [lb_av] MEDEN T ([facility]) Body mass index (BMI) [Ratio] 64.2 kg/m2 64.2 k g/m2 [facility] ([facility], ) Body weight 487.00 [lb_av] 487.00 [lb_av] [facility] PT States Body height 73 [in_i] 73 [in_i] [facility] ([facility]) 6'1" Body temperature 96.8 [degF] 96.8 [degF] [facility] ([facility]) Oxygen saturation in Arterial blood by Pulse oximetry 97 % 97 % [facility] ([facility]) Heart rate 122 /min 122 /min [facility] ([facility], ) Diastolic blood pressure 80 mm[Hg] 80 mm[Hg] [facility] ([facility]) Systolic blood pressure 130 mm[Hg] 130 mm[Hg] M [facility] ([facility]) Body weight 7472 [oz_av] 7472 [oz_av] CASSIE ([facility]) Systolic blood pressure 111 mm[Hg] 111 mm[Hg] A [facility] ([facility]) Body mass index (BMI) [Ratio] 60 kg/m2 60 kg/ m2 [facility] ([facility]) Body height 74 [in_i] 74 [in_i] [facility] ([facility]) Diastolic blood pressure 61 mm[Hg] 61 mm[Hg] [facility] ([facility]) Body weight 7472 [oz_av] 7472 [oz_av] [facility] ([facility]) Systolic blood pressure 111 mm[Hg] 111 mm[Hg] A THENA ([facility]) Body mass index (BMI) [Ratio] 60 kg/m2 60 kg/ m2 [facility] ([facility]) Body height 74 [in_i] 74 [in_i] [facility] ([facility]) Diastolic blood pressure 61 mm[Hg] 61 mm[Hg] [facility] ([facility]) Body weight 7472 [oz_av] 7472 [oz_av] [facility] ([facility]) Systolic blood pressure 130 mm[Hg] 130 mm[Hg] A [facility] ([facility]) Body mass index (BMI) [Ratio] 60 kg/m2 60 kg/ m2 [facility] ([facility]) Body height 74 [in_i] 74 [in_i] [facility] ([facility]) Diastolic blood pressure 84 mm[Hg] 84 mm[Hg] [facility] ([facility]) Body weight 7472 [oz_av] 7472 [oz_av] [facility] ([facility]) Systolic blood pressure 130 mm[Hg] 130 mm[Hg] A THEN ([facility]) Body mass index (BMI) [Ratio] 60 kg/m2 60 kg/ m2 [facility] ([facility]) Body height 74 [in_i] 74 [in_i] [facility] ([facility]) Diastolic blood pressure 84 mm[Hg] 84 mm[Hg] [facility] ([facility]) Body weight 7472 [oz_av] 7472 [oz_av] [facility] ([facility]) Systolic blood pressure 130 mm[Hg] 130 mm[Hg] A THEN ([facility]) Body mass index (BMI) [Ratio] 60 kg/m2 60 kg/ m2 [facility] ([facility]) Body height 74 [in_i] 74 [in_i] [facility] ([facility]) Diastolic blood pressure 84 mm[Hg] 84 mm[Hg] [facility] ([facility]) Body surface area Derived from formula 3.14 m2 3.14 m2 MEDVISHAL ([facility]) Body weight 221.073 kg 221.073 kg [facility]E [facility] [place] body weight 184 [lb_av] 184 [lb_av] FUENTES T ([facility], ) Body mass index (BMI) [Ratio] 64.3 kg/m2 64.3 k g/m2 [facility] ([facility]) Body weight 487.38 [lb_av] 487.38 [lb_av] [facility] Body height 73 [in_i] 73 [in_i] [facility] ([facility]) 6'1" Body temperature 96.8 [degF] 96.8 [degF] [facility] ([facility]) Oxygen saturation in Arterial blood by Pulse oximetry 97 % 97 % [facility] ([facility]) Heart rate 102 /min 102 /min [facility] ([facility]) Diastolic blood pressure 88 mm[Hg] 88 mm[Hg] [facility] ([facility]) Systolic blood pressure 142 mm[Hg] 142 mm[Hg] M WINSOME ([facility]) Body weight 7394.08 [oz_av] 7394.08 [oz_av] ATH MILAGROS ([facility]) Systolic blood pressure 103 mm[Hg] 103 mm[Hg] A [facility] ([facility]) Body height 74 [in_i] 74 [in_i] CASSIE ([facility]) Diastolic blood pressure 71 mm[Hg] 71 mm[Hg] [facility] ([facility]) Body weight 7394.08 [oz_av] 7394.08 [oz_av] ATH [facility]ROS ([facility]) Systolic blood pressure 103 mm[Hg] 103 mm[Hg] A [facility] ([facility]) Body height 74 [in_i] 74 [in_i] CASSIE ([facility]) Diastolic blood pressure 71 mm[Hg] 71 mm[Hg] CASSIE ([facility]) Body weight 7394.08 [oz_av] 7394.08 [oz_av] ATH [facility]ROS ([facility]) Systolic blood pressure 103 mm[Hg] 103 mm[Hg] A [facility] ([facility]) Body height 74 [in_i] 74 [in_i] CASSIE ([facility]) Diastolic blood pressure 71 mm[Hg] 71 mm[Hg] [facility] ([facility]) Body weight 7478.4 [oz_av] 7478.4 [oz_av] ATHEN A ([facility]) Systolic blood pressure 121 mm[Hg] 121 mm[Hg] [facility] Body height 74 [in_i] 74 [in_i] CASSIE ([facility]) Diastolic blood pressure 77 mm[Hg] 77 mm[Hg] CASSIE ([facility]) Body weight 7478.4 [oz_av] 7478.4 [oz_av] ATHEN A ([facility]) Systolic blood pressure 121 mm[Hg] 121 mm[Hg] [facility] Body height 74 [in_i] 74 [in_i] CASSIE ([facility]) Diastolic blood pressure 77 mm[Hg] 77 mm[Hg] CAS[facility]E ([facility]) Body weight 7478.4 [oz_av] 7478.4 [oz_av] ATHEN A ([facility]) Systolic blood pressure 121 mm[Hg] 121 mm[Hg] [facility] Body height 74 [in_i] 74 [in_i] CASSIE ([facility]) Diastolic blood pressure 77 mm[Hg] 77 mm[Hg] CAS[facility] ([facility]) Body weight 7465.6 [oz_av] 7465.6 [oz_av] ATHEN A ([facility]) Systolic blood pressure 120 mm[Hg] 120 mm[Hg] [facility] Body height 74 [in_i] 74 [in_i] CASSIE ([facility]) Diastolic blood pressure 84 mm[Hg] 84 mm[Hg] CASSIE ([facility]) Body weight 7465.6 [oz_av] 7465.6 [oz_av] ATHEN A ([facility]) Systolic blood pressure 120 mm[Hg] 120 mm[Hg] [facility] Body height 74 [in_i] 74 [in_i] CASSIE ([facility]) Diastolic blood pressure 84 mm[Hg] 84 mm[Hg] [facility] ([facility]) Body weight 7465.6 [oz_av] 7465.6 [oz_av] ATHEN A ([facility]) Systolic blood pressure 120 mm[Hg] 120 mm[Hg] [facility] Body height 74 [in_i] 74 [in_i] CASSIE ([facility]) Diastolic blood pressure 84 mm[Hg] 84 mm[Hg] CAS[facility]E ([facility]) Body weight 7520 [oz_av] 7520 [oz_av] CASSIE ([facility]) Body weight 7520 [oz_av] 7520 [oz_av] [facility] ([facility]) Body weight 7520 [oz_av] 7520 [oz_av] [facility] ([facility]) Body weight 7508 [oz_av] 7508 [oz_av] [facility] ([facility]) Systolic blood pressure 144 mm[Hg] 144 mm[Hg] [facility] Body height 74 [in_i] 74 [in_i] [facility] ([facility]) Diastolic blood pressure 78 mm[Hg] 78 mm[Hg] [facility] ([facility]) Body weight 7508 [oz_av] 7508 [oz_av] [facility] ([facility]) Systolic blood pressure 144 mm[Hg] 144 mm[Hg] [facility] Body height 74 [in_i] 74 [in_i] CASSIE ([facility]) Diastolic blood pressure 78 mm[Hg] 78 mm[Hg] CASSIE ([facility]) Body weight 7508 [oz_av] 7508 [oz_av] [facility]E ([facility]) Systolic blood pressure 144 mm[Hg] 144 mm[Hg] [facility] Body height 74 [in_i] 74 [in_i] CASSIE ([facility]) Diastolic blood pressure 78 mm[Hg] 78 mm[Hg] CAS[facility]E ([facility]) Oxygen saturation in Arterial blood by Pulse oximetry 95 % 95 % [facility] Body temperature 36.44 Sonal 36.44 Sonal [facility] Heart rate 73 /min 73 /min [facility] Diastolic blood pressure 71 mm[Hg] 71 mm[Hg] [facility] Systolic blood pressure 102 mm[Hg] 102 mm[Hg] [facility] Respiratory rate 16 /min 16 /min [facility] Body mass index (BMI) [Ratio] 52.77 kg/m2 52.77 kg/m2 [facility] Body weight 181.439 kg 181.439 kg [facility] Body height 185.4 cm 185.4 cm [facility] Body weight 7271.04 [oz_av] 7271.04 [oz_av] ATH [facility] ([facility]) Body weight 7271.04 [oz_av] 7271.04 [oz_av] ATH MILAGROS ([facility]) Body weight 7271.04 [oz_av] 7271.04 [oz_av] ATH [facility] ([facility]) ID Date Data Source [id number] 01/31/2020 11:10:09 AM [facility] Name Value Range Interpretation Code Description Data Source(s) WEIGHT RECORDED 460.2 lb 460.2 lb [facility] Body height Measured 73 in 73 in [facility] Patient Treatment Plan of Care Planned Activity Planned Date Details Description Data Source (s) Levothyroxine 02/20/2020 01:00:00 AM EDT [facility]) Tylenol 02/20/2020 01:00:00 AM EDT [facility] ([facility]) Nicotine Mini 2 MG 02/20/2020 01:00:00 AM EDT [facility]) Eliquis 5 MG 02/20/2020 01:00:00 AM EDT [facility] ([facility]) apixaban 5 MG Oral Tablet 02/07/2020 12:00:00 AM [facility] apixaban 5 MG Oral Tablet 02/03/2020 12:00:00 AM [facility] Eliquis 5 MG 01/30/2020 01:00:00 AM EDT [facility] ([facility]) Lortab 5-325 MG 01/30/2020 01:00:00 AM EDT [facility] ([facility]) Omeprazole 40 MG 01/30/2020 01:00:00 AM EDT [facility] ([facility]) Colace 01/30/2020 01:00:00 AM EDT N VIGNESH ([facility]) apixaban 5 MG Oral Tablet 01/27/2020 09:00:00 PM [facility] Acetaminophen 325 MG / Hydrocodone Bitartrate 5 MG Ora l Tablet 01/27/2020 01:06:12 PM [facility]spital apixaban 5 MG Oral Tablet 01/27/2020 12:00:00 AM [facility] apixaban 5 MG Oral Tablet 01/27/2020 12:00:00 AM [facility] Acetaminophen 325 MG / Hydrocodone Bitartrate 5 MG Ora l Tablet 01/27/2020 12:00:00 AM [facility] ospital apixaban 5 MG Oral Tablet 01/27/2020 12:00:00 AM [facility] apixaban 5 MG Oral Tablet 01/27/2020 12:00:00 AM [facility] Acetaminophen 325 MG / Hydrocodone Bitartrate 5 MG Ora l Tablet 01/27/2020 12:00:00 AM [facility] ospital apixaban 5 MG Oral Tablet 01/27/2020 12:00:00 AM [facility] apixaban 5 MG Oral Tablet 01/27/2020 12:00:00 AM [facility] apixaban 5 MG Oral Tablet 01/27/2020 12:00:00 AM [facility] Omeprazole 40 MG Delayed Release Oral Capsule 12/22/2019 12:00:00 A M [facility] Acetaminophen 325 MG / Hydrocodone Bitartrate 5 MG Ora l Tablet 12/21/2019 12:00:00 AM [facility] ospital Furosemide 40 MG Oral Tablet CASSIE ([facility]) Doxycycline Monohydrate 100 MG Oral Capsule CAS[facility]E ([facility])
[2020-10-16] MEDS ORDERED: HYDR-3716 PO (02:54)
[2020-10-16] MEDS ORDERED: COMBIVENT RESPIMAT 100-20MCG INHALER 4GM INH ONE (03:30)
[2020-10-16 04:06] LABS: BASO % 0.3 % (0.0-1.0); EOS # 0.2 10^3/uL (0.0-0.5); EOS % 1.3 % (0.0-3.0); HEMATOCRIT 42.6 % (42.0-52.0); HEMOGLOBIN 12.7 g/dl (13.5-17.5); LYMPH # 1.8 10^3/uL (1.5-5.0); LYMPH % 15.7 % (24.0-44.0); MEAN CORPUSCULAR HEMOGLOBIN 25.9 pg (27.0-33.0); MEAN CORPUSCULAR HGB CONC 29.8 g/dl (32.0-36.5); MEAN CORPUSCULAR VOLUME 86.9 fl (80.0-96.0); MONO # 0.6 10^3/uL (0.0-0.8); MONO % 5.1 % (2.0-8.0); NEUTROPHILS % 76.5 % (36.0-66.0); PLATELET COUNT, AUTOMATED 207 10^3/uL (150-450); WHITE BLOOD COUNT 11.7 10^3/uL (4.0-10.0)
--- OUTSIDE RECORDS SUMMARY | 2020-10-16 04:06 | CCD ---
Author Author [facility] Organization [facility] Address Unknown Phone Unavailable Care Team Providers Care Staffing Manager Name Role Phone Taye AMEZCUA Unavailable Unavailable [...] Unavailable Anika Martinez MD Unavailable Unavailable Anika Martienz MD Unavailable Unavailable Anika Martinez MD Unavailable [...] Elizabeth TURPIN MD Unavailable Unavailable STEPHENS, Elizabeth TRUPIN MD Unavailable Unavailable STEPHENS, Elizabeth TURPIN MD [...] Unavailable STEPHENS, Elizabeth TURPIN MD Unavailable Unavailable STPEHENS, Elizabeth TURPIN MD Unavailable Unavailable STEPHENS, Elizabeth TURPIN MD Unavailable Unavailable STEPHENS, Elizabeth TURPIN MD Unavailable Unavailable STEPHENS, Elizabeth TURPIN MD Unavailable Unavailable STEPHENS, Elizabeth TURPIN MD Unavailable Unavailable STEPHENS, Elizabeth TURPIN MD Unavailable Unavailable STEPHENS, Elizabeth TURPIN MD Unavailable Unavailable STEPHENS, Elizabeth TURPIN MD Unavailable Unavailable STEPHENS, Elizabeth TURPIN MD Unavailable Unavailable ROSE, JAVIER ANNA PRIMER INSERTING MACHINE OPERATOR-C Unavailable Unavailable ROSE, JAVIER ANNA PRIMER INSERTING MACHINE OPERATOR-C Unavailable Unavailable ROSE, JAVIER ANNA PRIMER INSERTING MACHINE OPERATOR-C Unavailable Unavailable ROSE, JAVIER NANA PRIMER INSERTING MACHINE OPERATOR-C Unavailable Unavailable ROSE, JAVIER ANNA PRIMER INSERTING MACHINE OPERATOR-C Unavailable Unavailable ROSE, JAVIER ANNA PRIMER INSERTING MACHINE OPERATOR-C Unavailable Unavailable ROSE, JAVIER ANNA PRIMER INSERTING MACHINE OPERATOR-C Unavailable Unavailable ROSE, JAVIER ANNA PRIMER INSERTING MACHINE OPERATOR-C Unavailable Unavailable ROSE, JAVIER ANNA PRIMER INSERTING MACHINE OPERATOR-C Unavailable Unavailable ROSE, JAVIER ANNA PRIMER INSERTING MACHINE OPERATOR-C Unavailable Unavailable ROSE, JAVIER ANNA PRIMER INSERTING MACHINE OPERATOR-C Unavailable Unavailable ROSE, JAVIER ANNA PRIMER INSERTING MACHINE OPERATOR-C Unavailable Unavailable ROSE, JAVIER ANNA PRIMER INSERTING MACHINE OPERATOR-C Unavailable Unavailable ROSE, JAVIER ANNA PRIMER INSERTING MACHINE OPERATOR-C Unavailable Unavailable ROSE, JAVIER ANNA PRIMER INSERTING MACHINE OPERATOR-C Unavailable Unavailable ROSE, JAVIER ANNA PRIMER INSERTING MACHINE OPERATOR-C Unavailable Unavailable Jose Guerrier MD Unavailable [...] Unavailable Elizabeth BROOKS MD Unavailable Unavailable Elizabeth RBOOKS MD Unavailable Unavailable Elizabeth BROOKS MD Unavailable [...] Unavailable Dominik PEREZ MD Unavailable Unavailable Dominik PEERZ MD Unavailable Unavailable Dominik PEREZ MD Unavailable [...] Unavailable Obradovic, Vladan Unavailable Unavailable Mikey, Lucy PRIMER INSERTING MACHINE OPERATOR PRIMER INSERTING MACHINE OPERATOR Unavailable Unavailable Mikey, A Lucy PRIMER INSERTING MACHINE OPERATOR Unavailable Unavailable Mikey, A Lucy PRIMER INSERTING MACHINE OPERATOR Unavailable Unavailable Mikey, A Lucy PRIMER INSERTING MACHINE OPERATOR Unavailable Unavailable Mikey, A Lucy PRIMER INSERTING MACHINE OPERATOR Unavailable Unavailable Mikey, A Lucy PRIMER INSERTING MACHINE OPERATOR Unavailable Unavailable Mikey, A Lucy PRIMER INSERTING MACHINE OPERATOR Unavailable Unavailable Mikey, A Lucy PRIMER INSERTING MACHINE OPERATOR Unavailable Unavailable Mikey, A Lucy PRIMER INSERTING MACHINE OPERATOR Unavailable Unavailable Mikey, A Lucy PRIMER INSERTING MACHINE OPERATOR Unavailable Unavailable Mikey, A Lucy PRIMER INSERTING MACHINE OPERATOR Unavailable Unavailable Mikey, A Lucy PRIMER INSERTING MACHINE OPERATOR Unavailable Unavailable Mikey, A Lucy PRIMER INSERTING MACHINE OPERATOR Unavailable Unavailable Mikey, A Lucy PRIMER INSERTING MACHINE OPERATOR Unavailable Unavailable Mikey, A Lucy PRIMER INSERTING MACHINE OPERATOR Unavailable Unavailable Mikey, A Lucy PRIMER INSERTING MACHINE OPERATOR Unavailable Unavailable Mikey, A Lucy PRIMER INSERTING MACHINE OPERATOR Unavailable Unavailable Mikey, A Lucy PRIMER INSERTING MACHINE OPERATOR Unavailable Unavailable Mikey, A Lucy PRIMER INSERTING MACHINE OPERATOR Unavailable Unavailable Mikey, A Lucy PRIMER INSERTING MACHINE OPERATOR Unavailable Unavailable Mikey, A Lucy PRIMER INSERTING MACHINE OPERATOR Unavailable Unavailable Mikey, A Lucy PRIMER INSERTING MACHINE OPERATOR Unavailable Unavailable Mikey, A Lucy PRIMER INSERTING MACHINE OPERATOR Unavailable Unavailable Mikey, A Lucy PRIMER INSERTING MACHINE OPERATOR Unavailable Unavailable Mikey, A Lucy PRIMER INSERTING MACHINE OPERATOR Unavailable Unavailable Mikey, A Lucy PRIMER INSERTING MACHINE OPERATOR Unavailable Unavailable Mikey, A Lucy PRIMER INSERTING MACHINE OPERATOR Unavailable Unavailable Mikey, A Lucy PRIMER INSERTING MACHINE OPERATOR Unavailable Unavailable Mikey, A Lucy PRIMER INSERTING MACHINE OPERATOR Unavailable Unavailable Re-disclosure Warning The records [...] is protected by Article 27-F of the [facility] Public Health law. If you continue you may have access to information: Regarding HIV / AIDS; Provided by facilities licensed or operated by the [facility] Office of Mental Health; or Provided by the [facility] Office for People With Developmental Disabilities. If such information is present, then the following [facility] mandated warning applies: This information has [...] law may result in a fine or senior care sentence or both. A general authorization for the release of medical or other information is NOT sufficient authorization for further disc losure. Allergies and Adverse Reactions Type Description Substance Reaction Status Data Source(s ) Soma Soma Soma active NETSMART ([facility]) Drug Class NO KNOWN ALLERGIES NO KNOWN ALLERGIES [facility] DRUG INGREDI CARISOPRODOL CARISOPRODOL [facility] Propensity to adverse reactions CARISOPRODOL Carisoprodol Hives High Facial Swelling High Active [facility] High High Encounters Encounter Providers Location Date Indications Data Source(s ) John Martinez MD: [address] [place] [phone], Ph. Attender: John Martinez MD [facility] 08/06/2020 12:00:00 AM EST [facility] ([facility]) John Martinez MD: [address] [place] [phone], Ph. Attender: John Martinez MD [facility] 07/19/2020 12:00:00 AM EST [facility] ([facility]) John Martinez MD: [address] [place] [phone], Ph. Attender: John Martinez MD [facility] 07/19/2020 12:00:00 AM EST [facility] ([facility]) Outpatient [address] [place] [address]-Mobile Integration Team 07/18/2020 12:00:00 AM EST [facility] ([facility]) Patient admitted. John Martinez MD: [address] [place] [phone], Ph. Attender: John Martinez MD [facility] 06/20/2020 12:00:00 AM EDT [facility] ([facility]) John Martinez MD: [address] [place] [phone], Ph. Attender: John Martinez MD [facility] 06/20/2020 12:00:00 AM EDT [facility] ([facility]) John Martinez MD: [address] [place] [phone], Ph. Attender: John Martinez MD [facility] 06/20/2020 12:00:00 AM EDT [facility] ([facility]) Outpatient Attender: DAKOTAH SAMUELS 06/19/2020 03:20:00 P M EDT [facility] Outpatient Attender: DAKOTAH CLAIRE FP 05/21/2020 08:17:00 A M EDT [facility] Outpatient Attender: DAKOTAH CLAIRE FP 05/19/2020 04:18:01 P M EDT [facility] Outpatient Attender: Lucy CLAIRE FP 05/19/2020 04:1 8:01 PM EDT [facility] Outpatient Attender: ANNA ROSE Adair/Nuria/Jim/Taye miller 05/14/2020 01:15:00 PM EDT [facility] ([facility] Outpatient Attender: Lucy CLAIRE FP 05/13/2020 11:5 8:02 AM EDT [facility] Outpatient Attender: DAKOTAH CLAIRE FP 05/08/2020 12:28:01 P M EDT [facility] Outpatient Attender: DAKOTAH CLAIRE FP 03/14/2020 09:12:00 A M EDT [facility] Outpatient Attender: DAKOTAH MCCORMACKP FP 03/12/2020 02:37:00 P M EDT [facility] Outpatient Attender: DAKOTAH CLAIRE FP 03/08/2020 09:07:02 A M EDT [facility] Outpatient Attender: DAKOTAH CLAIRE FP 02/21/2020 03:28:08 P M EDT [facility] Outpatient Attender: DAKOTAH CLAIRE FP 02/16/2020 09:04:01 A M EDT [facility] Outpatient Attender: Lucy CLAIRE FP 02/15/2020 09:5 7:00 AM EDT [facility] Outpatient Attender: DAKOTAH MCCORMACKP FP 02/15/2020 08:36:01 A M EDT [facility] Outpatient Attender: DAKOTAH CLAIRE FP 02/15/2020 07:50:00 A M EDT [facility] Outpatient Attender: Lucy CLAIRE FP 02/08/2020 10:1 0:01 AM EDT [facility] Outpatient Attender: Lucy CLAIRE FP 02/08/2020 08:5 4:03 AM EDT [facility] Outpatient Attender: DAKOTAH CLAIRE FP 02/08/2020 08:54:02 A M EDT [facility] Outpatient Referrer: DYANA STEPHENS MD 02/08/2020 05:55:00 AM EDT [facility] Outpatient Attender: DAKOTAH CLAIRE FP 02/07/2020 08:20:01 A M EDT [facility] Outpatient Attender: DAKOTAH SAMUELS 02/06/2020 01:48:01 P M EDT [facility] Outpatient Attender: DAKOTAH SAMUELS 02/05/2020 02:36:00 P M EDT [facility] Outpatient Attender: Lucy SAMUELS 02/05/2020 02:3 5:01 PM EDT [facility] Outpatient Attender: DAKOTAH SAMUELS 02/02/2020 02:43:00 P M EDT [facility] Outpatient Attender: Lucy SAMUELS 01/31/2020 07:2 3:02 AM EDT [facility] 01/30/2020 01:00:00 AM EDT - 020 09:21:39 AM EDT [facility]) Outpatient Attender: Lucy SAMUELS 01/28/2020 10:1 0:01 PM EDT [facility] Outpatient Attender: Lucy SAMUELS 01/25/2020 11:4 1:03 AM EDT [facility] Inpatient Attender: HARLEY Bro er: WANDA FRY MDAttender: MAYCO AMEZCUAAdmitter: HARLEY TORRESReferrer: WANDA FRY MDConsultant: DYANA PEREZ MD [id number] 01/23/2020 12:00:00 AM EDT - 01/27/2020 04:57:00 PM EDT Other pulmonary embolism without acute cor pulmonale [facility] Other pulmonary embolism without acute c or pulmonale Patient discharged. Outpatient Attender: DAKOTAH SAMUELS 01/18/2020 11:38:00 A M EDT [facility] Outpatient Attender: Lucy SAMUELS 01/15/2020 03:1 9:01 PM EDT [facility] Outpatient Attender: DAKOTAH SAMUELS 01/15/2020 01:41:00 P M EDT [facility] Outpatient Attender: DAKOTAH SAMUELS 01/08/2020 02:48:01 P [facility] Outpatient Attender: ORTEGA BROOKS MD 01/08/2020 09:47:02 A [facility] Outpatient Attender: ORTEGA BROOKS MD 12/20/2019 01:05:00 P [facility] Outpatient Attender: ORTEGA BROOKS MD 11/27/2019 11:35:01 A [facility] Outpatient Attender: ORTEGA BROOKS MD 11/24/2019 09:49:00 A [facility] Outpatient Attender: ORTEGA BROOKS MD 11/22/2019 08:01:01 A [facility] Outpatient Attender: ORTEGA BROOKS MD 11/21/2019 10:27:01 A [facility] Outpatient Attender: ORTEGA BROOKS MD 11/20/2019 01:04:00 P [facility] Outpatient Attender: ORTEGA BROOKS MD 11/16/2019 01:46:00 P [facility] Outpatient Attender: ORTEGA BROOKS MD 11/10/2019 09:22:01 A [facility] Outpatient Attender: ORTEGA BROOKS MD 11/10/2019 09:18:03 A [facility] Outpatient Attender: ORTEGA BROOKS MD 11/10/2019 09:18:02 A [facility] Outpatient Attender: ORTEGA BROOKS MD 11/10/2019 09:18:02 A [facility] Outpatient Attender: ORTEGA BROOKS MD 11/10/2019 08:42:00 A [facility] Outpatient Attender: ORTEGA BROOKS MD 11/09/2019 11:20:58 A [facility] Outpatient Attender: ORTEGA BROOKS MD 10/31/2019 12:38:02 P [facility] Outpatient Attender: ORTEGA BROOKS MD 10/31/2019 09:48:[address] [facility] Inpatient Attender: Tracey TalaveraAdmitter: Tracey stack [email or web address] 10/31/2019 09:29:47 AM EST [facility] Outpatient Attender: ORTEGA BROOKS MD 10/31/2019 07:39:[address] [facility] Outpatient Attender: ORTEGA BROOKS MD 10/31/2019 07:38:[address] [facility] Outpatient Attender: ORTEGA BROOKS MD FP 10/30/2019 01:42:[address] [facility] Outpatient Attender: ORTEGA BROOKS MD 10/25/2019 07:55:[address] [facility] Outpatient Attender: ORTEGA BROOKS MD 10/20/2019 04:30:[address] [facility] Outpatient Attender: ORTEGA BROOKS MD 10/20/2019 04:29:[address] [facility] Outpatient Attender: ORTEGA BROOKS MD 10/20/2019 04:28:[address] [facility] Outpatient Attender: ORTEGA BROOKS MD 10/20/2019 01:56:[address] [facility] Outpatient Attender: ORTEGA BROOKS MD 10/20/2019 12:54:[address] [facility] Outpatient Attender: ORTEGA BROOKS MD 10/20/2019 12:42:[address] [facility] Outpatient Attender: ORTEGA BROOKS MD 10/20/2019 12:41:[address] [facility] Outpatient Attender: ORTEGA BROOKS MD 10/20/2019 12:40:[address] [facility] Outpatient Attender: ORTEGA BROOKS MD 10/20/2019 12:39:[address] [facility] Outpatient Attender: Himanshu Guerrier MDAdmitter: Himanshu Guerrier MD E [email or web address] 10/06/2019 02:08:17 PM [facility] 11/06/2019 01:34:00 PM [facility] Patient discharged. Outpatient Attender: ORTEGA BROOKS MD 09/25/2019 03:29:[address] [facility] Outpatient Attender: ORTEGA BROOKS MD 09/24/2019 10:08:[address] [facility] Outpatient Attender: ORTEGA BROOKS MD 09/20/2019 02:46:02 P M EST [facility] Outpatient Attender: ORTEGA SAMUELS 08/24/2019 08:35:00 A M EST [facility] Medications Medication Brand Name Start Date Product [...] CPAP 06/04/2020 12:00:00 AM EDT active [facility] ([facility], ) Levothyroxine Levothyroxine 02/20/2020 01:00:00 AM EDT 0 {mcg} completed [facility] ([facility]) Nicotine Mini 2 MG Nicotine Mini 02/20/2020 01:00:00 AM EDT 0 {a sd} completed [facility] ([facility]) Tylenol Tylenol 02/20/2020 01:00:00 AM EDT 0 {mg} compl eted [facility]SMART ([facility]) Eliquis 5 MG Eliquis 02/20/2020 01:00:00 AM EDT co mpleted NETSMART ([facility]) 5 mg 02/15/2020 12:00:00 AM EDT tablet [...] After finishing the 10mg loading dose course. [facility] 2 mg 02/06/2020 12:00:00 AM EDT [...] After finishing the 10mg loading dose course. [facility] Lortab 5-325 MG Lortab 01/30/2020 01:00:00 AM EDT completed [facility]SMART ([facility]) Omeprazole 40 MG Omeprazole 01/30/2020 01:00:00 AM EDT completed [facility] ([facility] ) Colace Colace 01/30/2020 01:00:00 AM EDT 100.0 {mg} com pleted NETSMART ([facility]) Eliquis 5 MG Eliquis 01/30/2020 01:00:00 AM EDT co mpleted [facility]SMART ([facility]) apixaban 5 MG Oral Tablet apixaban (ELIQUIS) tablet 10 mg apixaban (ELIQUIS) tablet 10 mg 01/27/2020 09:00:00 PM EDT 10 mg Oral activ e 10 mg, Oral, 2 Times Daily, First dose on 01/27/20 at 2100, For 7 days [facility] Medication administered onsite Acetaminophen 325 MG [...] mg from all sources in 24 hours.
[facility] Medication administered onsite apixaban 5 MG Oral Tablet apixaban (ELIQUIS) tablet 10 mg apixaban (ELIQUIS) tablet 10 mg 01/27/2020 12:00:00 PM EDT 10 mg Oral compl eted 10 mg, Oral, Once, 01/27/20 at 1200, For 1 dose [facility] Medication administered onsite apixaban 5 MG Oral Tablet Apixaban 5 MG Oral Tablet (E liquis) Apixaban 5 MG Oral Tablet (Eliquis) 01/27/2020 12:00:00 AM EDT 5 mg Oral a borted Take 1 tablet by mouth Two Times Daily [facility] apixaban 5 MG Oral Tablet Apixaban 5 MG Oral Tablet (E liquis) Apixaban 5 MG Oral Tablet (Eliquis) 01/27/2020 12:00:00 AM EDT 5 mg Oral a borted Take 1 tablet by mouth Two Times Daily After finishing the 10mg loading dose course. [facility] apixaban 5 MG Oral Tablet Apixaban 5 MG Oral Tablet (E LIQUIS) Apixaban 5 MG Oral Tablet (ELIQUIS) 01/27/2020 12:00:00 AM EDT 10 mg Oral a borted Take 2 tablets by mouth Two Times Daily for 7 days [facility] Acetaminophen 325 MG / Hydrocodone Smith trate 5 MG Oral Tablet HYDROcodone- Acetaminophen 5-325 MG Oral Tablet (LORTAB) HYDROcodone-Acetaminophen 5-325 MG Oral Tablet (LORTAB) 01/27/2020 12:00:00 AM EDT 1 {tbl} Oral active Take 1 tablet by mouth every 6 (six) hours as needed for up to 3 days, Max Daily Dose: 4 tablets [facility] apixaban 5 MG Oral Tablet Apixaban 5 MG Oral Tablet (E LIQUIS) Apixaban 5 MG Oral Tablet (ELIQUIS) 01/27/2020 12:00:00 AM EDT 5 mg Oral a borted Take 1 tablet by mouth Two Times Daily [facility] apixaban 5 MG Oral Tablet Apixaban 5 MG Oral Tablet (E LIQUIS) Apixaban 5 MG Oral Tablet (ELIQUIS) 01/27/2020 12:00:00 AM EDT 5 mg Oral a borted Take 1 tablet by mouth Two Times Daily [facility] Acetaminophen 325 MG / Hydrocodone Smith trate 5 MG Oral Tablet HYDROcodone- Acetaminophen 5-325 MG Oral Tablet (LORTAB) HYDROcodone-Acetaminophen 5-325 MG Oral Tablet (LORTAB) 01/27/2020 12:00:00 AM EDT 1 {tbl} Oral aborted Take 1 tablet by mouth every 6 (six) hours as needed for up to 3 days, Max Daily Dose: 4 tablets [facility] apixaban 5 MG Oral Tablet Apixaban 5 MG Oral Tablet (E LIQUIS) Apixaban 5 MG Oral Tablet (ELIQUIS) 01/27/2020 12:00:00 AM EDT 5 mg Oral a ctive Take 1 tablet by mouth Two Times Daily [facility] apixaban 5 MG Oral Tablet Apixaban 5 MG Oral Tablet (E LIQUIS) Apixaban 5 MG Oral Tablet (ELIQUIS) 01/27/2020 12:00:00 AM EDT 5 mg Oral a borted Take 1 tablet by mouth Two Times Daily [facility] 1 ML heparin sodium, porcine 1000 UNT/ML Injection heparin (porcine) 1000 units/mL injection 5,200 Units heparin (porcine) 1000 units/mL injectio n 5,200 Units 01/26/2020 12:15:00 PM EDT 5200 U Intravenous comple charmaine 5,200 Units, Intravenous, Once, Wed01/26/20 at 1215, For 1 dose
Adult High Dose / With Bolus Protocol.
[facility] Medication administered onsite sodium chloride 0.9 % bolus 1,000 mL 9336-0959-47 01/26/2020 12:15: 00 AM EDT 1000 mL Intravenous completed 1,000 mL , Intravenous, Once, Wed01/26/20 at 0015, For 1 dose [facility] Medication administered onsite 1 ML heparin sodium, porcine 1000 UNT/ML Injection heparin (porcine) 1000 units/mL injection 5,227 Units heparin (porcine) 1000 units/mL injectio n 5,227 Units 01/25/2020 09:30:00 PM EDT 5227 U Intravenous comple charmaine 5,227 Units, Intravenous, Once, Dina 01/25/20 at 2130, For 1 dose
Adult High Dose / With Bolus Protocol.
[facility] Medication administered onsite pantoprazole 40 MG Delayed Release Oral Tablet pantoprazole (PROTONIX) EC tablet 40 mg pantoprazole (PROTONIX) EC tablet 40 mg 01/25/2020 09:00:00 AM E DT 40 mg Oral active 40 mg, Ora l, Daily Standard, First dose on Dina 01/25/20 at 0900, For 30 days
Do not crush or chew
[facility] Medication administered onsite sodium chloride 0.9 % bolus 1,000 mL 01/25/2020 06:30: 00 AM EDT 1000 mL Intravenous completed 1,000 mL , Intravenous, Once, Dina 01/25/20 at 0630, For 1 dose [facility] Medication administered onsite sodium chloride 0.9 % bolus 1,000 mL 01/24/2020 10:30: 00 PM EDT 1000 mL Intravenous completed 1,000 mL , Intravenous, Once, Wed01/24/20 at 2230, For 1 dose [facility] Medication administered onsite 1 ML heparin sodium, porcine 1000 UNT/ML Injection heparin (porcine) 1000 units/mL injection 5,300 Units heparin (porcine) 1000 units/mL injectio n 5,300 Units 01/24/2020 10:15:00 PM EDT 5300 U Intravenous comple charmaine 5,300 Units, Intravenous, Once, Wed01/24/20 at 2215, For 1 dose
Adult High Dose / With Bolus Protocol.
[facility] Medication administered onsite NaCl infusion 0.9 % 01/24/2020 04:15:00 PM EDT Intravenous completed at 100 mL/hr, Intrav enous, Continuous, Starting Wed01/24/20 at 1615, For 24 hours [facility] Medication administered onsite 500 ML heparin sodium, porcine 50 UNT/ML Injection heparin in NaCl 0.45 % infusion 50 units/mL heparin in NaCl 0.45 % infusion 50 units/mL 01/24/2020 03:00:00 PM EDT 3450 U/h Intravenous aborted 3,450 Units/hr (69 mL/hr), Intravenous, at 69 mL/hr, Continuous, Starting Wed01/24/20 at 1500, For 30 days
Adult High Dose / With Bolus Protocol.
[facility] Medication administered onsite 1 ML heparin sodium, porcine 1000 UNT/ML Injection heparin (porcine) 1000 units/mL injection 5,275 Units heparin (porcine) 1000 units/mL injectio n 5,275 Units 01/24/2020 02:45:00 PM EDT 5275 U Intravenous comple charmaine 5,275 Units, Intravenous, Once, Wed01/24/20 at 1500, For 1 dose
Adult High Dose / With Bolus Protocol.
[facility] Medication administered onsite Docusate Sodium 100 MG Oral Capsule docusate sodium (C OLACE) capsule 100 mg docusate sodium (COLACE) capsule 100 mg 01/24/2020 09:00:00 AM EDT 100 mg Oral active 100 mg, Oral, 2 Times Daily, First dose on Wed01/24/20 at 0900, For 30 days [facility] Medication administered onsite 1 ML heparin sodium, porcine 1000 UNT/ML Injection heparin (porcine) 1000 units/mL injection 5,295 Units heparin (porcine) 1000 units/mL injectio n 5,295 Units 01/24/2020 06:45:00 AM EDT 5295 U Intravenous comple charmaine 5,295 Units, Intravenous, Once, Wed01/24/20 at 0645, For 1 dose
Adult High Dose / With Bolus Protocol.
[facility] Medication administered onsite calcium gluconate in NaCl 0.9 % infusion 1 g/50 mL [id number] 01/24/2020 02:30:00 AM EDT 1 g Intravenous completed 1 g, Intravenous, Administer over 1 Hours, Once, Wed01/24/20 at 0230, For 1 dose
1 g calcium gluconate = 90 mg elemental Ca++ = 4.5 mEq Ca++. Dosed on mg of calcium gluconate.
[facility] Medication administered onsite Acetaminophen 325 MG Oral Tablet acetaminophen (TYLENO L) tablet 975 mg acetaminophen (TYLENOL) tablet 975 mg 01/23/2020 10:45:00 PM EDT 97 5 mg Oral completed 975 mg, Oral, O nce, Wed01/23/20 at 2245, For 1 dose
Maximum daily dose of acetaminophen is 3,000 mg from all sources in 24 hours.
[facility] Medication administered onsite 500 ML heparin sodium, porcine 50 UNT/ML Injection heparin in NaCl 0.45 % infusion 50 units/mL heparin in NaCl 0.45 % infusion 50 units/mL 01/23/2020 10:15:00 PM EDT 2150 U/h Intravenous aborted 2,150 Units/hr (43 mL/hr), Intravenous, at 43 mL/hr, Continuous, Starting Wed01/23/20 at 2215, For 30 days [facility] Medication administered onsite 7.5-325 mg 01/15/2020 [...] tive Take 1 capsule by mouth daily [facility] 5-325 mg 12/21/2019 12:00:00 AM EDT tablet 60 TAKE 1 TABLET BY MOUTH EVERY 4-6 HOURS NEEDED FOR SEVERE PAIN MAXIMUM DAILY DOSE = 2 TAKE 1 TABLET BY MOUTH EVERY 4-6 HOURS NEEDED FOR SEVERE PAIN MAXIMUM DAILY DOSE = 2 SOLD: 12/22/2019 [facility] Acetaminophen 325 MG / Hydrocodone Smith trate 5 MG Oral Tablet HYDROcodone- Acetaminophen 5-325 MG Oral Tablet (LORTAB) HYDROcodone-Acetaminophen 5-325 MG Oral Tablet (LORTAB) 12/21/2019 12:00:00 AM EDT 1 {tbl} Oral aborted Take 1 tablet by mouth as needed [facility] 5-325 mg 11/22/2019 12:00:00 AM EDT [...] doxycycline monohydrate 100 MG Oral Capsule [facility] ([facility]) Furosemide 40 MG Oral Tablet furosemide 40 mg tablet furosemide 40 mg tablet completed furosemide 40 MG Oral Tablet [facility] ([facility]) Insurance Providers Payer name Policy type / Coverage type Policy ID Covered green party ID Covered green party's relationship to delacruz Policy [employer] Plan Information [employer] [facility] MCDO [id number] SP [id number] [facility] O [id number] S [id number] Managed Care - [facility] Community Plan P [id number] S [id number] Medicaid S [id number] S [id number] Managed Care - [facility] Community Plan P [id number] S [id number] [facility] I [id number] Self [id number] [facility] I [id number] Self [id number] Medicaid S [id number] S [id number] [facility] MEDICAID [id number] [facility] MEDICAID [id number] Reyna [id number] Managed Care - [facility] Community Plan P [id number] S [id number] Managed Care - [facility] Community Plan P [id number] S [id number] Managed Care - [facility] Community Plan P [id number] S [id number] Medicaid S [id number] S [id number] [facility] Comm Plan Medicaid F [id number] SELF [id number] Managed Care - Community Plan [facility] P [id number] S [id number] Managed Care - Community Plan [facility] P [id number] S [id number] Self Pay P [id number] S [id number] SELF PAY ONLY UNK SP UNK SELF PAY UNAVAILABLE SP UNAVAILA BLE Problems, Conditions, and Diagnoses Code Display Name Description Problem Type Effective Dates Data Source(s) 65323881 Cigarette smoker Cigarette Smoker Problem 06/20/2020 12 :00:00 AM EDT [facility]) 146599166 Thromboembolism of vein Thromboembolism of Vein Proble m 06/20/2020 12:00:00 AM EDT [facility] ([facility]) 459807961 Morbid obesity Morbid Obesity Problem 06/20/2020 12:00: 00 AM EDT [facility] ([facility]) 97587931 Vitamin D deficiency Vitamin D Deficiency Problem 06/20/2020 12:00:00 AM EDT [facility] ([facility]) 14746449 Cigarette smoker Cigarette Smoker Problem 06/20/2020 12 :00:00 AM EDT [facility]) 333103987 Thromboembolism of vein Thromboembolism of Vein Proble m 06/20/2020 12:00:00 AM EDT [facility] ([facility]) 567075227 Morbid obesity Morbid Obesity Problem 06/20/2020 12:00: 00 AM EDT [facility] ([facility]) 66866721 Vitamin D deficiency Vitamin D Deficiency Problem 06/20/2020 12:00:00 AM EDT [facility] ([facility]) 56299149 Cigarette smoker Cigarette Smoker Problem 06/20/2020 12 :00:00 AM EDT [facility] ([facility]) 428343124 Thromboembolism of vein Thromboembolism of Vein Proble m 06/20/2020 12:00:00 AM EDT [facility] ([facility]) 887505136 Morbid obesity Morbid Obesity Problem 06/20/2020 12:00: 00 AM EDT [facility] ([facility]) 80619912 Vitamin D deficiency Vitamin D Deficiency Problem 06/20/2020 12:00:00 AM EDT [facility] ([facility]) M16.11 Unilateral primary osteoarthritis, right hip Unilateral primary osteoarthritis, right hip 02/21/2020 03:26:37 PM EDT [facility] [id number] Idiopathic osteoarthritis Idiopathic Osteoarthritis Pr oblem 02/20/2020 12:00:00 AM EDT [facility] ([facility]) 604525905 Idiopathic osteoarthritis Idiopathic Osteoarthritis Pr oblem 02/20/2020 12:00:00 AM EDT [facility] ([facility]) 902000136 Idiopathic osteoarthritis Idiopathic Osteoarthritis Pr oblem 02/20/2020 12:00:00 AM EDT [facility] ([facility]) V70.0 Encounter for general adult medical exam ination with abnormal findings Encounter for general adult medical examination with abnormal findings 02/15/2020 08:34:39 AM EDT [facility] 447300631 Other specified hypothyroidism Other specified hypothy roidism 02/15/2020 08:34:39 AM EDT [facility] V85.43 BMI 50.0-59.9 BMI 50.0-59.9 02/15/2020 08:34:39 AM EDT [facility] 091830064 Procedure by method Procedure by Method Problem 0 02/15/2020 12:00:00 AM EDT [facility] ([facility]) 495632708 Body mass index 30+ - obesity Body Mass Index 30+ - Ob esity Problem 02/15/2020 12:00:00 AM EDT [facility] ([facility]) 53391233 Hypothyroidism Hypothyroidism Problem 02/15/2020 12:00: 00 AM EDT [facility] ([facility]) 213768418 Procedure by method Procedure by Method Problem 0 02/15/2020 12:00:00 AM EDT [facility] ([facility]) 334071611 Body mass index 30+ - obesity Body Mass Index 30+ - Ob esity Problem 02/15/2020 12:00:00 AM EDT [facility] ([facility]) 01882354 Hypothyroidism Hypothyroidism Problem 02/15/2020 12:00: 00 AM EDT [facility] ([facility]) 071623587 Procedure by method Procedure by Method Problem 0 02/15/2020 12:00:00 AM EDT [facility] ([facility]) 064955353 Body mass index 30+ - obesity Body Mass Index 30+ - Ob esity Problem 02/15/2020 12:00:00 AM EDT [facility] ([facility]) 54409137 Hypothyroidism Hypothyroidism Problem 02/15/2020 12:00: 00 AM EDT [facility] ([facility]) 327.23 Obstructive sleep apnea syndrome Obstructive sleep recreation supervisor ea syndrome 02/05/2020 02:34:23 PM EDT [facility] I26.09 Other pulmonary embolism with acute cor pulmonale Other pulmonary embolism with acute cor pulmonale 02/05/2020 02:34:23 PM EDT [facility] 26244317 Acute cor pulmonale Acute Cor Pulmonale Problem 0 02/05/2020 12:00:00 AM EDT [facility] ([facility]) 29613864 Obstructive sleep apnea syndrome Obstructive Sle ep Apnea Syndrome Problem 02/05/2020 12:00:00 AM EDT [facility] ([facility]) 43105663 Acute cor pulmonale Acute Cor Pulmonale Problem 0 02/05/2020 12:00:00 AM EDT [facility] ([facility]) 75747251 Obstructive sleep apnea syndrome Obstructive Sle ep Apnea Syndrome Problem 02/05/2020 12:00:00 AM EDT [facility] ([facility]) 32851300 Acute cor pulmonale Acute Cor Pulmonale Problem 0 02/05/2020 12:00:00 AM EDT [facility] ([facility]) 51269634 Obstructive sleep apnea syndrome Obstructive Sle ep Apnea Syndrome Problem 02/05/2020 12:00:00 AM EDT [facility] ([facility]) I82.412 Acute embolism and thrombosis of left fe moral vein Acute embolism and thrombosis of left femoral vein Problem 01/29/2020 01:00:00 AM EDT [facility] ([facility]) I82.432 Acute embolism and thrombosis of left po pliteal vein Acute embolism and thrombosis of left popliteal vein Problem 01/29/2020 01:00:00 AM EDT [facility] ([facility]) E66.01 Morbid (severe) obesity due to excess ca lories Morbid (severe) obesity due to excess calories Problem 01/29/2020 01:00:00 AM EDT [facility] ( [facility]) G47.33 Obstructive sleep apnea (adult) (pediatr ic) Obstructive sleep apnea (adult) (pediatric) Problem 01/29/2020 01:00:00 AM EDT [facility] M16.0 Bilateral primary osteoarthritis of hip Bilateral primary osteoarthritis of hip Problem 01/29/2020 01:00:00 AM EDT [facility] ([facility]) G89.29 Other chronic pain Other chronic pain Problem 0 01:00:00 AM EDT [facility] ([facility]) F17.210 Nicotine dependence, cigarettes, uncompl icated Nicotine dependence, cigarettes, uncomplicated Problem 01/29/2020 01:00:00 AM EDT [facility] ([facility]) Z79.01 jail (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 s jail (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s Problem 01/29/2020 01:00:00 AM EDT [facility] ([facility]) Z91.81 History of falling History of falling Problem 0 01:00:00 AM EDT [facility] ([facility]) Z68.44 Body mass index (BMI) 60.0-69.9, adult B pravin mass index (BMI) 60.0-69.9, adult Problem 01/29/2020 01:00:00 AM EDT [facility] ([facility]) Z60.2 Problems related to living alone Problems related to l iving alone Problem 01/29/2020 01:00:00 AM EDT [facility] ([facility] ) I26.09 Other pulmonary embolism with acute cor pulmonale Other pulmonary embolism with acute cor pulmonale Problem 01/29/2020 01:00:00 AM EDT [facility] ([facility]) I27.82 Chronic pulmonary embolism Chronic pulmonary embolism Problem 01/29/2020 01:00:00 AM EDT [facility] ([facility] ) 719.07 Ankle edema Ankle edema 11/10/2019 09:17:31 AM EDT [facility] V15.82 Ex-smoker Ex-smoker 11/10/2019 09:17:31 AM ED T [facility] [id number] Clinical finding Clinical Finding Problem 11/10/2019 12 :00:00 AM EDT [facility]) 431344911 Localized edema Localized Edema Problem 11/10/2019 12:0 0:00 AM EDT [facility] ([facility]) 766232275 Clinical finding Clinical Finding Problem 11/10/2019 12 :00:00 AM EDT [facility] ([facility]) 749886382 Localized edema Localized Edema Problem 11/10/2019 12:0 0:00 AM EDT [facility]) 549579969 Clinical finding Clinical Finding Problem 11/10/2019 12 :00:00 AM EDT [facility]) 082255297 Localized edema Localized Edema Problem 11/10/2019 12:0 0:00 AM EDT [facility]) F43.20 Adjustment disorder, unspecified Adjustment diso rders, Unspecified Diagnosis 07/18/2020 12:00:00 AM EST [facility] ([facility]) F50.9 Eating disorder, unspecified Unspecified feeding or eating disorder Diagnosis 07/18/2020 12:00:00 AM EST [facility] ([facility]) I26.94 Multiple subsegmental pulmonary emboli w ithout acute cor pulmonale Multiple subsegmental pulmonary emboli without acute cor pulmonale Diagnosis 01/24/2020 05:37:49 PM EDT [facility] I26.99 Other pulmonary embolism without acute c or pulmonale Other pulmonary embolism without acute cor pulmonale Diagnosis 01/24/2020 05:37:49 PM EDT [facility] Z68.44 Body mass index (BMI) 60.0-69.9, adult B pravin mass index (bmi) 60.0-69.9, adult Diagnosis 01/24/2020 05:34:15 PM EDT [facility] E66.01 Morbid (severe) obesity due to excess ca lories Morbid (severe) obesity due to excess calories Diagnosis 01/24/2020 05:34:15 PM EDT [facility] LLE DVT LLE DVT Diagnosis 01/23/2020 09:52:[address] [facility] Multiple PE's Multiple PE's Diagnosis 01/23/2020 [facility] E66.01 Morbid (severe) obesity due to excess ca lories Morbid (severe) obesity due to excess ca Diagnosis 11/06/2019 07:26:38 AM EDT [facility] K21.9 Gastro-esophageal reflux disease without esophagitis Gastro-esophageal reflux disease without Diagnosis 11/06/2019 07:25:00 AM EDT [facility] Surgeries/Procedures Procedure Description Date Indications Data Source(s) ANTI-XA UNFRACTIONATED HEPARIN LEVEL ANTI-XA UNFRACTIONATED HEPARIN LEVEL Routine 01/27/2020 5:29 AM EDT 01/27/2020 09:29:00 AM [facility] PROBNP PROBNP Routine 01/27/2020 5:29 AM EDT 01/27/20 20 09:29:00 AM [facility] PROTHROMBIN TIME PROTIME INR Routine 01/27/2020 5:29 AM EDT 01/27/2020 09:29:00 AM [facility] BLOOD COUNT COMPLETE AUTOMATED CBC Routine 01/27/2020 5:29 A M EDT 01/27/2020 09:29:00 AM [facility] BASIC METABOLIC PANEL CALCIUM TOTAL BASIC METABOLIC PANEL Routi ne 01/27/2020 5:29 AM EDT 01/27/2020 09:29:00 AM EDT [facility] HEPARIN ASSAY ANTI-XA UNFRACTIONATED HEPARIN LEVEL Routine 01/26/2020 10:50 PM EDT 01/27/2020 02:50:00 AM EDT [facility] HEPARIN ASSAY ANTI-XA UNFRACTIONATED HEPARIN LEVEL Routine 01/26/2020 5:22 PM EDT 01/26/2020 09:22:00 PM EDT [facility] HEPARIN ASSAY ANTI-XA UNFRACTIONATED HEPARIN LEVEL Routine 01/26/2020 11:07 AM EDT 01/26/2020 03:07:00 PM EDT [facility] HEPARIN ASSAY ANTI-XA UNFRACTIONATED HEPARIN LEVEL Routine 01/26/2020 3:21 AM EDT 01/26/2020 07:21:00 AM EDT [facility] PROTHROMBIN TIME PROTIME INR Routine 01/26/2020 3:21 AM EDT 01/26/2020 07:21:00 AM [facility] BLOOD COUNT COMPLETE AUTOMATED CBC Routine 01/26/2020 3:21 A M EDT 01/26/2020 07:21:00 AM [facility] BASIC METABOLIC PANEL CALCIUM TOTAL BASIC METABOLIC PANEL Routi ne 01/26/2020 3:21 AM EDT 01/26/2020 07:21:00 AM EDT [facility] HEPARIN ASSAY ANTI-XA UNFRACTIONATED HEPARIN LEVEL Routine 01/25/2020 8:01 PM EDT 01/26/2020 12:01:00 AM EDT [facility] HEPARIN ASSAY ANTI-XA UNFRACTIONATED HEPARIN LEVEL Routine 01/25/2020 11:59 AM EDT 01/25/2020 03:59:00 PM EDT [facility] HEPARIN ASSAY ANTI-XA UNFRACTIONATED HEPARIN LEVEL Routine 01/25/2020 4:59 AM EDT 01/25/2020 08:59:00 AM EDT [facility] NATRIURETIC PEPTIDE PROBNP Routine 01/25/2020 4:59 AM EDT 01/25/2020 08:59:00 AM [facility] PROTHROMBIN TIME PROTIME INR Routine 01/25/2020 4:59 AM EDT 01/25/2020 08:59:00 AM [facility] BLOOD COUNT COMPLETE AUTOMATED CBC Routine 01/25/2020 4:59 A M EDT 01/25/2020 08:59:00 AM [facility] BASIC METABOLIC PANEL CALCIUM TOTAL BASIC METABOLIC PANEL Routi ne 01/25/2020 4:59 AM EDT 01/25/2020 08:59:00 AM EDT [facility] HEPARIN ASSAY ANTI-XA UNFRACTIONATED HEPARIN LEVEL Routine 01/24/2020 9:10 PM EDT 01/25/2020 01:10:00 AM EDT [facility] PROTHROMBIN TIME PROTIME INR Routine 01/24/2020 9:10 PM EDT 01/25/2020 01:10:00 AM [facility] BLOOD COUNT COMPLETE AUTOMATED CBC Timed 01/24/2020 9:10 P M EDT 01/25/2020 01:10:00 AM [facility] HEPARIN ASSAY ANTI-XA UNFRACTIONATED HEPARIN LEVEL Routine 01/24/2020 1:36 PM EDT 01/24/2020 05:36:00 PM EDT [facility] ECHO TTHRC R-T 2D W/WOM-MODE COMPL SPEC&COLR DOP ECHOCARDIO GRAM 2D COMPLETE Routine 01/24/2020 9:31 AM EDT 01/24/2020 01:31:23 PM [facility] HEPARIN ASSAY ANTI-XA UNFRACTIONATED HEPARIN LEVEL Routine 01/24/2020 5:46 AM EDT 01/24/2020 09:46:00 AM EDT [facility] BLOOD COUNT COMPLETE AUTO&AUTO DIFRNTL WBC COUNT CBC AND DIFFER ENTIAL Routine 01/24/2020 5:46 AM EDT 01/24/2020 09:46:00 AM [facility] TROPONIN QUANTITATIVE TROPONIN T Routine 01/24/2020 5:46 AM EDT 01/24/2020 09:46:00 AM [facility] PHOSPHORUS INORGANIC PHOSPHORUS LEVEL Routine 01/24/2020 5:46 AM E DT 01/24/2020 09:46:00 AM [facility] MAGNESIUM MAGNESIUM LEVEL Routine 01/24/2020 5:46 AM EDT 01/24/2020 09:46:00 AM [facility] COMPREHENSIVE METABOLIC PANEL COMPREHENSIVE METABOLIC PANEL Rou lisa 01/24/2020 5:46 AM EDT 01/24/2020 [facility] COVID-19 PCR STAT 01/23/2020 10:41 PM EDT 01/24/2020 02:41:00 AM [facility] BLOOD COUNT COMPLETE AUTO&AUTO DIFRNTL WBC COUNT CBC AND DIFFER ENTIAL Routine 01/23/2020 10:31 PM EDT 01/24/2020 02:31:00 AM [facility] TROPONIN QUANTITATIVE POCT ISTAT TROPONIN Routine 01/23/2020 10:12 PM EDT 01/24/2020 02:12:00 AM [facility] HEPARIN ASSAY ANTI-XA UNFRACTIONATED HEPARIN LEVEL Routine 01/23/2020 10:09 PM EDT 01/24/2020 02:09:00 AM EDT [facility] BLOOD COUNT COMPLETE AUTO&AUTO DIFRNTL WBC COUNT CBC AND DIFFER ENTIAL Routine 01/23/2020 10:09 PM EDT 01/24/2020 02:09:00 AM EDT [facility] BASIC METABOLIC PANEL CALCIUM TOTAL BASIC METABOLIC PANEL Routi ne 01/23/2020 10:09 PM EDT 01/24/2020 02:09:00 AM EDT [facility] EKG 12-LEAD - CMAXX REPORT EKG 12-LEAD - CMAXX REPORT 01/23/2020 10:08 PM EDT 01/24/2020 02:08:39 AM EDT [facility] EKG 12-LEAD - CMAXX REPORT EKG 12-LEAD - CMAXX REPORT 01/23/2020 10:08 PM EDT 01/24/2020 02:08:39 AM EDT [facility] EKG 12-LEAD EKG 12-LEAD STAT 01/23/2020 10:08 PM EDT 01/24/2020 02:08:39 AM [facility] UPPER NDSC BIOPSY SINGLE/MULTIPLE 11/06/2019 12:00:00 AM EDT [facility] ([facility]) Results ID Date Data Source [id number] 05/09/2020 09:44:34 AM EDT [facility] Labs In-House Blood TestsDate/Time Colle cted: May 09, 2020 9:37 AMTest Result Reference Range Normal ValueComments: Labs drawn in office taken from right hand. Paitent was a hard stick, but tolerated it well. Majo Ramirez MA, May 09, 2020 9:45 AMAssessment & Plan Orders:[id number] Ofc Vst-Est Level I [CPT-16532] 87255 - Venipuncture [CPT-61151] Name Value Range Interpretation Code Description Data Savi rce(s) Supporting Document(s) ID Date Data Source [id number] 05/09/2020 09:36:00 AM EDT [facility] Name Value Range Interpretation Code Description Data Savi rce(s) Supporting Document(s) HGBA1C 6.4 % N [facility] ID Date Data Source [id number] 05/09/2020 09:36:00 AM EDT [facility] Name Value Range Interpretation Code Description Data Savi rce(s) Supporting Document(s) BG FASTING 132 mg/dL 70-100 H [facility] TSH 2.220 microintl units/mL 0.358-3.740 [facility] ID Date Data Source [id number] 02/15/2020 08:10:42 AM EDT [facility] Measurements & CalculationsHeight: 74 inches (6 ft. [...] during this visit, including review of any nuwv-pvh-qnwdbfp medications, herbal therapies, and/or supplements.Allergy ReviewAllergy List [...] adult medical examination with abnormal findings (ICD-V70.0) (RKD24-T81.01) Assessment: Instructions: Diet and exercise.Fasting blood tests reviewed.Other specified hypothyroidism (ICD10- E03.8) Assessment: Instructions: Newly diagnosed and this may be a factor in both his sleep apnea and obesity.Recheck 3 months with fasting blood tests before.Assessed:Obstructive sleep apnea syndrome (ICD-327.23) (PGC53-M14.33) Assessment: Instructions: Refer to pulomnary.Pain in right hip (ICD-719.45) (DKS56-B69.551) Assessment: Instructions: Medication options are limited:Opiates are [...] Qty: 60[Tablet] Refills: 5Allergies:SOMA (Severe)Orders:Preventive, Est, (40-64) [CPT-33723] Pulmonology Consult [CPT-58585] COMP METABOLIC PANEL [CPT-53074] TSH [CPT-94608] LIPID PANEL [CPT-83304] HgBA1c [CPT-20380] Medications:LEVOTHYROXINE SODIUM 100 MCG ORAL TABLET (LEVOTHYROXINE SODIUM) One tablet by mouth every day #30[Tablet] x 2 Route:ORAL Entered and Authorized by: John Martinez MD Method used: Electronically to [facility] (retail) [address] [place] [address] Note to Pharmacy: Route: ORAL; RxID: [id number] 5 MG ORAL TABLET (APIXABAN) One po bid. #60[Tablet] x 5 Entered and Authorized by: John Martinez MD Method used: Electronically to [facility] (retail) [address] [place] [address] Fax: Note to Pharmacy: Route: ORAL; RxID: [id number] signed by John Martinez MD on 02/15/2020 at 9:56 AM Name Value Range Interpretation Code Description Data Savi rce(s) Supporting Document(s) ID Date Data Source [id number] 02/07/2020 07:43:23 AM EDT [facility] In-House Blood TestsDate/Time Colle cted: February 07, 2020 7:43 AMTest Result Reference Range Normal ValueComments: blood draw done in office,t jong from right ac, tolerated well.Emely Keshia, February 07, 2020 7:44 AMAssessment & Plan Orders:[id number] Vst-Est Level I [CPT-97682] 33178 - Venipuncture [CPT-00036] Name Value Range Interpretation Code Description Data Savi rce(s) Supporting Document(s) ID Date Data Source [id number] 02/07/2020 07:40:00 AM EDT [facility] Name Value Range Interpretation Code Description Data Savi rce(s) Supporting Document(s) HCT 47.0 % 42.0-52.0 N [facility] HGB 14.9 g/dL 13.5-17.5 N [facility] MCH 31.7 G/DL pg 32.0-36.5 L [facility] MCHC 28.2 PG % 27.0-33.0 N [facility] PLATELETS 194 10 10*3/mm3 150-450 N [facility] RBC 5.29 10 10*6/mm3 4.30-6.10 [facility] RDW 15.2 % 11.5-14.5 H [facility] WBC TOTAL 9.6 4.0-10.0 N [facility] ID Date Data Source [id number] 02/07/2020 07:40:00 AM EDT [facility] Name Value Range Interpretation Code Description Data Savi rce(s) Supporting Document(s) BG FASTING 118 mg/dL 70-100 [facility] TSH 4.460 microintl units/mL 0.358-3.740 H [facility] VIT D25 TOT 15.0 ng/mL 30.0-100.0 L [facility] ID Date Data Source [id number] 02/07/2020 07:40:00 AM EDT [facility] Name Value Range Interpretation Code Description Data Savi rce(s) Supporting Document(s) HGBA1C 6.5 % N [facility] ID Date Data Source [id number] 02/05/2020 01:42:25 PM EDT [facility] Measurements & CalculationsHeight: 74 inches (6 ft. [...] been admitted to the hospital? Yes - [facility] for PE Have you been to an [...] seen Ortho for a while. Was taking [place] for this. We had recently increased this [...] Problems:Added: Obstructive sleep apnea syndrome (ICD- 327.23) (QPE95-K53.33) Assessment: Instructions: Refer to pulmonary.We discussed the importance eof treating this as well as the danger of using [place] with its risk of addiitive respiratory depression. He is anxious about this possibility and I share his cocnern. I would like to avoid this combination for a while and have him focus on using Tylenol until we can address this.Other pulmonary embolism with acute cor pulmonale (PYY65-B85.09) Assessment: Instructions: Due to obesity and immobility. Symptomatically improved.Cotninue current dose of Eliquis for at least 6 months.Assessed:Obesity, unspecified (VYH07-R89.9) Assessment: Instructions: He will elisa bariatric surgery to reschedule with them. The sooner the better.Pain in right hip (ICD-719.45) (HPD06-G17.551) Assessment: Instructions: He will call Ortho to reschedule.Patient Instructions/Care Plan: Obstructive sleep apnea syndrome: Refer to pulmonary.We discussed the importance eof treating this as well as the danger of using [place] with its risk of addiitive respiratory depression. [...] daysOrders:Adult - Ofc Vst, EST, Level III [CPT-67744] Medications:EQL NICOTINE POLACRILEX 2 MG MOUTH/THROAT LOZENGE (NICOTINE POLACRILEX) one lozenge slowly dissolved in mouth q2h prn #150[Lozenge] x 1 Route:MOUTH/THROAT Entered and Authorized by: John Martinez MD Method used: Electronically to [facility] (retail) [facility] [place] [address] Note to Pharmacy: Route: M/T; RxID: [id number] signed by John Martinez MD on 02/05/2020 at 2:34 PM Name Value Range Interpretation Code Description Data Savi rce(s) Supporting Document(s) ID Date Data Source [id number] 01/30/2020 09:53:13 PM EDT [facility] CT 2ND OPINION READ - CHEST [id number] ESULTInterpreted by:Krishna Parr MDEXAMINATION: CT 2ND OPINION READ - CHEST [id number] INDICATION: 49-year-old male with pulmonary emboli, assess for right heart strain.TECHNIQUE: Axial CTA images of the chest with contrast were acquired at [facility] on January 23, 2020 and submitted [...] rce(s) Supporting Document(s) ID Date Data Source [id number] 01/30/2020 06:02:32 PM EDT [facility] Name Value Range Interpretation Code Description Data Savi rce(s) Supporting Document(s) ED Provider Note [facility] MZAMWf7bVxQDYqYe71/FOLyoDLMyh1ElYVohWZw9SVczAZYkF1EgRDM2iC2zSKQ5VVoXIkJvUpKyXhGz lbm [file] tRBmNMnbXK1KXFX+Estefani+Yd8JOEZaODIbZDQzCkEkLRCIVjYkG0YpY5WKf2UbW0EbCG10jHdvlgTeJLuk LT2FXG6kQHVbLWIGSW8DiVDwmN9mkzF5CgSbZDUMOkMiL22slBUuSYLtPDWfOHLmQh5KODOnU5WmwjAf kKlisbOaYXDnIEWNRB7MLVqivzGqtRBzkIvpGU28gZ nnIR4RDa8WGhKtCQ5cpz5PwHEqBm9DOLC3WW4CTJRqWOBwTRHoBAI8TJTgUfDgNKutMDTaXGKwNDP8FH BbLDVnLT9KReBlXQMxMJTrNvosRQFnGGEpiy8BLIJtTEC2EeBrSURdQKGmQVXhUVzlDTEdKNPoLSV2CV PqBYCwGJ9BZwPpNOMuEQSkJfpoEXUjHYDnae8NBJSr XWIiJkM6EGMnOZFeKLFhITnkCFUsGYB1FsLzRPZxYQXaEW8CCvJcAWGkOPD9RTnxTTByYKXlik4YJYPr OWCfZIN2AkBhSQGnLVNqXWbhVDLyZVV3Ujh9BYMpJHEbCE5QWtNaJJHyAFX7VRwtASCvIQAsiy2ZCTQs FHMaMQm2AUHoQYEwMAFlJJmiSSQwPHVfUVA1VAQcEZ IrDD1FVvRqXLUqMLOrDyLfRTTpVLHblu7MYPKyWAEfKDO1LuKgUQUhRQJmKKnsUJDwSJT0KdHiFCFcKB PbZA9GYgIbRSXjQTH1YWplPJIlONWlfw6VUFEmXZPdZOR0EMVnCEMfUHHeTFxoXGAkWCX6Wrv9YZDuPI ZlOU3YWuYtTEYqBWhuXJVhHXUmKSKnrj3YUEUbRETp EvOjRyBeMLYrWWMbGUyaXZSzRPIrOdJ2PTLuAJRwFM1ANmRxWREpDuS4GELcYXFoJEYehi7KIHUrCQAa BXWhSxGqGJRfCNMeUQkcHHBqPGM9Dur1TMVvBMFdDA7KFuSlFLBgNvu9ZEKxGKRaCDEjil8JRIUcLVTi DRMgEPPrOCDxHOCsRNjyFFNoMLUaWZO6FULmQKJtRT 5MUjLqGLMyAkBeZAQfIVMkNNQziv4BJHYoBKJmFpKeEBJeLEYwHEMuOAghZLTjBGUfHpJcWYBkXDXxXP 7QZsFvDAKjGuQ7MPvyIELgPXGaii7XSWWzQFSlUfL4YIBnRDWsYZRsEQypBAUeBTS7FaMdWJXaDKHkBF 1LIlGgUWUeMfY0YIMdBFAvTUWtug4MXGHzGBAwRFf7 KZOaVKRoNPLgPGadNIAbRAZ1JQRkQLOdKULqYR6ZSkWhRVRlZhGyIPxmBOZvOGRztc0ZPTKnNSDoIzSr FQYcRMWpHCEfKNjcPAVdXTW8RtH5NZWwLJBxKN0UJyIsLNZxCKzrPlYpMHFcYWUkwi8WIDTnXPR5TDC9 NrInGBKkFFGzQCviHXMkJSC9FIjpMNEwYJKmVJ1UGv LqOBBaOTb7SiscXXHjKMBjfl6POZGaNKC2DVO6JOHxPYSsHPIvNNbeSTVqKTR3YkY9WHNsGBHnFD8GOm UlCKHcNLr8FrRoBCQsRSZpzb5DBPLkVJN7LHi3INCcNQVzZVJaUHxbGKRgIEUeYFN3NHLvXMFdKZ6PTs IxRHUsWYBjCJGdZDRnSBNifa1NUKQiBWU3INV4YTWs MXHbNOTiHIpmSDVgEQXuXsO3YSQbOODuVL0LRzCwMIFgARUcCUIaPRKjZVKiwo0NUABuTBR1KzT3WuGv WQBySWQcICkqRJZzUTUoECt4JFMyMCDcIE5KKlAhYBBgFKT3HQQbIJElYXFukw2CDQUeXDI7Fuz5DOQp PSCrXNCdQXjcZASjCYA3ECW1JZUoWQAgRL6KGgWnTO qeDQGRDxj7FXzaQ7g3FWG7RN2CU2Ous2QwDPssSNSLSSjxBS5worZcBWNzAt1MH1wWHttdKKMzXKEvQM VcUBLiDBObYLT7QAKkEXUnWkIhEyJuUj2fUNLwQaUxEZNiMSW0MLSyBKO3CZNlCAP4JyCpZCKtIsU4Gn KaBQ5AIr8NBdA8FFB1hQKbWr0RDYK4YYwJJqRoSK1WJOv= ID Date Data Source [id number] 01/28/2020 06:01:10 PM EDT [facility] Name Value Range Interpretation Code Description Data Savi rce(s) Supporting Document(s) Discharge Summary [facility] FEUHUm4tXkCDGpSm09/GWMauZKWpi5VmSOelXIb9CAuyVLJqH4NqSLX4bK0zZGQ2DXqRFaZvOuQqZSRe lbm [file] IhNyJj4ROXDIY8UTCa== ID Date Data Source [id number] 01/27/2020 06:08:37 AM EDT [facility] Name Value Range Interpretation Code Description Data Savi rce(s) Supporting Document(s) Leukocytes [#/volume] in Blood by Automated count 9.6 10*3/uL 4-10 [facility] Erythrocytes [#/volume] in Blood by Automated count 4.35 10*6/uL 4.6- 6.1 L [facility] Hemoglobin [Mass/volume] in Blood 12.3 g/dL 13.5-18 L [facility] Hematocrit [Volume Fraction] of Blood by Automated count 37.1 % 4 1-53 L [facility] Erythrocyte mean corpuscular volume [Entitic volume] by Auto mated count 85.3 fL 80-96 [facility] Erythrocyte mean corpuscular hemoglobin [Entitic mass] by Automated count 28.4 pg 27-33 [facility] Erythrocyte mean corpuscular hemoglobin concentration [Mass/volume] by Automated count 33.3 g/dL 32.0-36.0 [facility] E[facility]th[facility] distribution width [Ratio] by Automated count 15.5 % 11.5-14.5 H [facility] Platelets [#/volume] in Blood by Automated count 129 10*3/uL 150-400 L [facility] ID Date Data Source [id number] 01/27/2020 06:13:44 AM [facility] Value Range Interpretation Code Description Data Savi rce(s) Supporting Document(s) Prothrombin time (PT) 13.7 s 12.5-14.9 [facility] INR in Platelet poor plasma by Coagulation assay 1.04 [facility] Routine intensity oral anticoagulation I NR is typically 2.0-3.0. Target INR must be clinically individualized. ID Date Data Source [id number] 01/27/2020 06:13:44 AM [facility] Value Range Interpretation Code Description Data Savi rce(s) Supporting Document(s) Heparin unfractionated [Units/volume] in Platelet poor plasma by Chromogenic method 0.43 U/ml [facility] ID Date Data Source [id number] 01/27/2020 06:28:03 AM [facility] Value Range Interpretation Code Description Data Savi rce(s) Supporting Document(s) Natriuretic peptide.B prohormone N-Terminal [Mass/volu me] in Serum or Plasma 1872 pg/mL <125 H [facility] ID Date Data Source [id number] 01/27/2020 06:28:03 AM [facility] Value Range Interpretation Code Description Data Savi rce(s) Supporting Document(s) Bicarbonate [Moles/volume] in Serum 23 mmol/L 22-29 [facility] Chloride [Moles/volume] in Serum or Plasma 103 mmol/L 98-107 [facility] Creatinine [Mass/volume] in Serum or Plasma 1.21 mg/dL 0.70-1.20 H [facility] Glucose [Mass/volume] in Serum or Plasma 93 mg/dL 70-140 [facility] Potassium [Moles/volume] in Serum or Plasma 3.9 mmol/L 3.4-5.1 [facility] Sodium [Moles/volume] in Serum or Plasma 138 mmol/L 136-145 [facility] Urea nitrogen [Mass/volume] in Serum or Plasma 8 mg/dL 6-20 [facility] Anion gap 3 in Serum or Plasma 12 mmol/L 8-15 [facility] Osmolality of Serum or Plasma by calculation 284 mosm/kg 275-300 [facility] Creatinine/Urea nitrogen [Mass Ratio] in Serum or Plasma 7 [facility] Calcium [Mass/volume] in Serum or Plasma 8.5 mg/dL 8.6-10.0 L [facility] Glomerular filtration rate/1.73 sq M pre dicted among non-blacks [Volume Rate/Area] in Serum or Plasma by Creatinine-based formula (MDRD) 70 mL/min/1.73m2 >60 [facility] Glomerular filtration rate/1.73 sq M pre dicted among blacks [Volume Rate/Area] in Serum or Plasma by Creatinine-based formula (MDRD) 81 mL/min/1.73m2 >60 [facility] ID Date Data Source [id number] 01/26/2020 11:21:16 PM [facility] Name Value Range Interpretation Code Description Data Savi rce(s) Supporting Document(s) Heparin unfractionated [Units/volume] in Platelet poor plasma by Chromogenic method 0.35 U/ml [facility] ID Date Data Source [id number] 01/26/2020 05:41:39 PM [facility] Name Value Range Interpretation Code Description Data Savi rce(s) Supporting Document(s) [facility] ASQERj9bFlDEWiTg54/TOWqvFBGfr3QfWSufHWm7JAywLTNaA0ExOCT4vV7gAFH4OFuQZeRdVvQaPDU7 [facility] [file] PCJbxhv2o0Zq7+service desk agent+gQp2a6vQZCPre69j9ONvIj7TH [file] MMArMAMqLyGoFQS2W3IaNrN5YZ1wRYFFQq5+CTgvtZNgoIigSQNSUmH9PPU1PRgeBVWFQf7T ID Date Data Source [id number] 01/26/2020 05:57:52 PM EDT [facility] Name Value Range Interpretation Code Description Data Savi e(s) Supporting Document(s) Heparin unfractionated [Units/volume] in Platelet poor plasma by Chromogenic method 0.52 U/ml [facility] ID Date Data Source [id number] 01/26/2020 11:46:08 AM EDT [facility] Name Value Range Interpretation Code Description Data Savi rce(s) Supporting Document(s) Heparin unfractionated [Units/volume] in Platelet poor plasma by Chromogenic method 0.14 U/[facility] ID Date Data Source [id number] 01/26/2020 03:50:27 AM [facility] Value Range Interpretation Code Description Data Savi rce(s) Supporting Document(s) Leukocytes [#/volume] in Blood by Automated count 10.5 10*3/uL 4-10 H [facility] Erythrocytes [#/volume] in Blood by Automated count 4.37 10*6/uL 4.6- 6.1 L [facility] Hemoglobin [Mass/volume] in Blood 12.3 g/dL 13.5-18 L [facility] Hematocrit [Volume Fraction] of Blood by Automated count 37.2 % 4 1-53 L [facility] Erythrocyte mean corpuscular volume [Entitic volume] by Auto mated count 85.3 fL 80-96 [facility] Erythrocyte mean corpuscular hemoglobin [Entitic mass] by Automated count 28.2 pg 27-33 [facility] Erythrocyte mean corpuscular hemoglobin concentration [Mass/volume] by Automated count 33.0 g/dL 32.0-36.0 [facility] Erythrocyte distribution width [Ratio] by Automated count 15.4 % 11.5-14.5 H [facility] Platelets [#/volume] in Blood by Automated count 113 10*3/uL 150-400 L [facility] ID Date Data Source [id number] 01/26/2020 04:03:44 AM [facility] Value Range Interpretation Code Description Data Savi rce(s) Supporting Document(s) Heparin unfractionated [Units/volume] in Platelet poor plasma by Chromogenic method 0.37 U/[facility] ID Date Data Source [id number] 01/26/2020 04:03:44 AM [facility] Value Range Interpretation Code Description Data Savi rce(s) Supporting Document(s) Prothrombin time (PT) 14.3 s 12.5-14.9 [facility] INR in Platelet poor plasma by Coagulation assay 1.10 [facility] Routine intensity oral anticoagulation I NR is typically 2.0-3.0. Target INR must be clinically individualized. ID Date Data Source [id number] 01/26/2020 04:03:51 AM EDT [facility] Name Value Range Interpretation Code Description Data Savi rce(s) Supporting Document(s) Bicarbonate [Moles/volume] in Serum 21 mmol/L 22-29 L [facility] Chloride [Moles/volume] in Serum or Plasma 105 mmol/L 98-107 [facility] Creatinine [Mass/volume] in Serum or Plasma 1.21 mg/dL 0.70-1.20 H [facility] Glucose [Mass/volume] in Serum or Plasma 111 mg/dL 70-140 [facility] Potassium [Moles/volume] in Serum or Plasma 3.9 mmol/L 3.4-5.1 [facility] Sodium [Moles/volume] in Serum or Plasma 136 mmol/L 136-145 [facility] Urea nitrogen [Mass/volume] in Serum or Plasma 9 mg/dL 6-20 [facility] Anion gap 3 in Serum or Plasma 10 mmol/L 8-15 [facility] Osmolality of Serum or Plasma by calculation 282 mosm/kg 275-300 [facility] Creatinine/Urea nitrogen [Mass Ratio] in Serum or Plasma 8 [facility] Calcium [Mass/volume] in Serum or Plasma 8.2 mg/dL 8.6-10.0 L [facility] Glomerular filtration rate/1.73 sq M pre dicted among non-blacks [Volume Rate/Area] in Serum or Plasma by Creatinine-based formula (MDRD) 70 mL/min/1.73m2 >60 [facility] Glomerular filtration rate/1.73 sq M pre dicted among blacks [Volume Rate/Area] in Serum or Plasma by Creatinine-based formula (MDRD) 81 mL/min/1.73m2 >60 [facility] ID Date Data Source [id number] 01/25/2020 08:46:27 PM EDT [facility] Name Value Range Interpretation Code Description Data Savi rce(s) Supporting Document(s) Heparin unfractionated [Units/volume] in Platelet poor plasma by Chromogenic method [facility] ID Date Data Source [id number] 01/25/2020 03:04:44 PM EDT [facility] Name Value Range Interpretation Code Description Data Savi rce(s) Supporting Document(s) [facility] KUSSFd8gZoISCxXi23/GANyaDXNdf4FnWEsaZIu0AQxzFJQmV5QvQLM1dJ3wYZE2KRiGUiFcUzFzXTE1 lbm [file] yiZDAbHIPoZaHaPQ9lBFQOGu3+CDgveKQemXfqNHQATiH1VdC6ISeiLHVMWy5K ID Date Data Source [id number] 01/25/2020 12:33:32 PM [facility] Value Range Interpretation Code Description Data Savi rce(s) Supporting Document(s) Heparin unfractionated [Units/volume] in Platelet poor plasma by Chromogenic method 0.29 U/ml [facility] ID Date Data Source [id number] 01/25/2020 05:26:45 AM [facility] Value Range Interpretation Code Description Data Savi rce(s) Supporting Document(s) Leukocytes [#/volume] in Blood by Automated count 10.7 10*3/uL 4-10 H [facility] Erythrocytes [#/volume] in Blood by Automated count 4.40 10*6/uL 4.6- 6.1 L [facility] Hemoglobin [Mass/volume] in Blood 12.5 g/dL 13.5-18 L [facility] Hematocrit [Volume Fraction] of Blood by Automated count 37.9 % 4 1-53 L [facility] Erythrocyte mean corpuscular volume [Entitic volume] by Auto mated count 86.1 fL 80-96 [facility] Erythrocyte mean corpuscular hemoglobin [Entitic mass] by Automated count 28.5 pg 27-33 [facility] Erythrocyte mean corpuscular hemoglobin concentration [Mass/volume] by Automated count 33.0 g/dL 32.0-36.0 [facility] Erythrocyte distribution width [Ratio] by Automated count 15.4 % 11.5-14.5 H [facility] Platelets [#/volume] in Blood by Automated count 109 10*3/uL 150-400 L [facility] ID Date Data Source [id number] 01/25/2020 05:36:28 AM [facility] Value Range Interpretation Code Description Data Savi rce(s) Supporting Document(s) Heparin unfractionated [Units/volume] in Platelet poor plasma by Chromogenic method 0.28 U/[facility] ID Date Data Source [id number] 01/25/2020 05:36:28 AM [facility] Value Range Interpretation Code Description Data Savi rce(s) Supporting Document(s) Prothrombin time (PT) 14.5 s 12.5-14.9 [facility] INR in Platelet poor plasma by Coagulation assay 1.12 [facility] Routine intensity oral anticoagulation I NR is typically 2.0-3.0. Target INR must be clinically individualized. ID Date Data Source [id number] [facility] Code Description Data Savi rce(s) Supporting Document(s) Bicarbonate [Moles/volume] in Serum 25 mmol/L 22-29 [facility] Chloride [Moles/volume] in Serum or Plasma 103 mmol/L 98-107 [facility] Creatinine [Mass/volume] in Serum or Plasma 1.36 mg/dL 0.70-1.20 H [facility] Glucose [Mass/volume] in Serum or Plasma 106 mg/dL 70-140 [facility] Potassium [Moles/volume] in Serum or Plasma 4.3 mmol/L 3.4-5.1 [facility] Sodium [Moles/volume] in Serum or Plasma 137 mmol/L 136-145 [facility] Urea nitrogen [Mass/volume] in Serum or Plasma 13 mg/dL 6-20 [facility] Anion gap 3 in Serum or Plasma 9 mmol/L 8-15 [facility] Osmolality of Serum or Plasma by calculation 284 mosm/kg 275-300 [facility] Creatinine/Urea nitrogen [Mass Ratio] in Serum or Plasma 10 [facility] Calcium [Mass/volume] in Serum or Plasma 8.1 mg/dL 8.6-10.0 L [facility] Glomerular filtration rate/1.73 sq M pre dicted among non-blacks [Volume Rate/Area] in Serum or Plasma by Creatinine-based formula (MDRD) 61 mL/min/1.73m2 >60 [facility] Glomerular filtration rate/1.73 sq M pre dicted among blacks [Volume Rate/Area] in Serum or Plasma by Creatinine-based formula (MDRD) 70 mL/min/1.73m2 >60 [facility] ID Date Data Source [id number] 01/25/2020 07:53:[facility] Range Interpretation Code Description Data Savi rce(s) Supporting Document(s) Natriuretic peptide.B prohormone N-Terminal [Mass/volu me] in Serum or Plasma 3004 pg/mL <125 H [facility] ID Date Data Source [id number] 01/24/2020 09:35:29 PM [facility] Value Range Interpretation Code Description Data Savi rce(s) Supporting Document(s) Leukocytes [#/volume] in Blood by Automated count 11.2 10*3/uL 4-10 H [facility] Erythrocytes [#/volume] in Blood by Automated count 4.50 10*6/uL 4.6- 6.1 L [facility] Hemoglobin [Mass/volume] in Blood 12.9 g/dL 13.5-18 L [facility] Hematocrit [Volume Fraction] of Blood by Automated count 38.0 % 4 1-53 L [facility] Erythrocyte mean corpuscular volume [Entitic volume] by Auto mated count 84.5 fL 80-96 [facility] Erythrocyte mean corpuscular hemoglobin [Entitic mass] by Automated count 28.7 pg 27-33 [facility] Erythrocyte mean corpuscular hemoglobin concentration [Mass/volume] by Automated count 34.0 g/dL 32.0-36.0 [facility] Erythrocyte distribution width [Ratio] by Automated count 15.4 % 11.5-14.5 [facility] Platelets [#/volume] in Blood by Automated count 108 10*3/uL 150-400 L [facility] ID Date Data Source [id number] 01/24/2020 09:56:55 PM [facility] Value Range Interpretation Code Description Data Savi rce(s) Supporting Document(s) Heparin unfractionated [Units/volume] in Platelet poor plasma by Chromogenic method [facility] ID Date Data Source [id number] 01/24/2020 09:56:55 PM [facility] Value Range Interpretation Code Description Data Savi rce(s) Supporting Document(s) Prothrombin time (PT) 14.9 s 12.5-14.9 [facility] INR in Platelet poor plasma by Coagulation assay 1.15 [facility] Routine intensity oral anticoagulation I NR is typically 2.0-3.0. Target INR must be clinically individualized. ID Date Data Source [id number] 01/24/2020 05:39:04 PM [facility] Value Range Interpretation Code Description Data Savi rce(s) Supporting Document(s) History and Physical [facility] FRUHMr7mEwWECqYp78/WBRkxKHTrg1ViOPvuKGl0QCzaPJTpO2TdIHJ3lZ1qDHZ6WLnTZqUvIyMoXHD2 lbm [file] AgICAgICAgICAgICAgICAgICAgICAgICAgICAgICAg ICAgICAgICAgICAgICANCiAgICAgICAgICAgICAgICAgICAgICAgICAgICAgICAgICAgICAgICAgICAg ICAgICAgICAgICAgICAgICAgICAgICAgICAgICAgICAgICAgICAgICAgICAgICAgICAgICAgICANCiAg ICAgICAgICAgICAgICAgICAgICAgICAgICAgICAgIC AgICAgICAgICAgICAgICAgICAgICAgICAgICAgICAgICAgICAgICAgICAgICAgICAgICAgICAgICAgIC AgICAgICANCiAgICAgICAgICAgICAgICAgICAgICAgICAgICAgICAgICAgICAgICAgICAgICAgICAgIC AgICAgICAgICAgICAgICAgICAgICAgICAgICAgICAg ICAgICAgICAgICAgICAgICANCiAgICAgICAgICAgICAgICAgICAgICAgICAgICAgICAgICAgICAgICAg ICAgICAgICAgICAgICAgICAgICAgICAgICAgICAgICAgICAgICAgICAgICAgICAgICAgICAgICAgICAN CiAgICAgICAgICAgICAgICAgICAgICAgICAgICAgIC AgICAgICAgICAgICAgICAgICAgICAgICAgICAgICAgICAgICAgICAgICAgICAgICAgICAgICAgICAgIC AgICAgICAgICANCiAgICAgICAgICAgICAgICAgICAgICAgICAgICAgICAgICAgICAgICAgICAgICAgIC AgICAgICAgICAgICAgICAgICAgICAgICAgICAgICAg ICAgICAgICAgICAgICAgICAgICANCiAgICAgICAgICAgICAgICAgICAgICAgICAgICAgICAgICAgICAg ICAgICAgICAgICAgICAgICAgICAgICAgICAgICAgICAgICAgICAgICAgICAgICAgICAgICAgICAgICAg ICANCiAgICAgICAgICAgICAgICAgICAgICAgICAgIC AgICAgICAgICAgICAgICAgICAgICAgICAgICAgICAgICAgICAgICAgICAgICAgICAgICAgICAgICAgIC AgICAgICAgICAgICANCiAgICAgICAgICAgICAgICAgICAgICAgICAgICAgICAgICAgICAgICAgICAgIC AgICAgICAgICAgICAgICAgICAgICAgICAgICAgICAg ICAgICAgICAgICAgICAgICAgICAgICANCjw/sSKrL7ydbKDgyaL4V7sjRw2VYv6PIZ6bn1PfIXYyYNvp xyJjHhgDAmVdCKEmIxeODpm6MXlvUP7CyGMbA7WiL9JrIEvnLD8SJQCbODQcfIGtAZKxVMGhSlS2ZLDn DUseUO8XbMJwIKxeEQHrQALtHbQfATTbPGKaHROgMI IqNLIDPZIaFWGxKrTqSGujBQ8Dp5RcdDS7NTt+Qp1QUF7zi4OkBUhkGVCpKK3dlr7UKEpSRnZoR8Vdol L1AILzYVMxAw5VZCQmIXByhLN9KWLzUMDQQaLkB7WgaG45TLPQZr7+KAtujkEtXqyHJsOgQFJap0AbWB r2DN2JACJpLWr5tPNwYVAKQAB1VTMpjNIsAGOuA8gt omajLODrLEWoOH2hIr0fUIInIQZfUmUpAAGFCN2UPSUqAHQoyJUkDAOxQMUKTQ8JHJypNAI3EKQgqyGb qBJyWOrcZJ3HDOCcloQtBwbyHZBUYMk+Dl8TPA7zh2UzYBu6VADlCK1kyc1ZZPzEAaJoN0T4mXEtB4B3 YIzaDm1YXEFtAGDnLsawRWXXIAodXH5ZFW7xfxR2XT 8EoUAzKOEjTXOghWUcRZq5Q49ayHNuCTuhWP3IDIV+Estefani+Ru2BRFYnAWMqHALsHvPqNMPTCuRbW8NcW2 RDx9CjP9PxBQ79nVufgnXxPEugKI5AMV5iMRJmDGJAPJ1UiUYlsO5gmeYaSJGdFNQNVgAjD12joFBaBV MrKCN1LEVtCm0GWHOaH2NwhwOwlQyienWdAXVxWDUW GJ5ZQHfwsdVghYWhbIwmLH91qGhgDX6CAv6JVrXpQH2xcx0ZqCSmPj4ZQBO3Kv2PLBJjNPMpLFQyCDB2 OXMkLcJyODwjLYGoVTFbNHF3QUAxUNDfEX0FAdNaSAXdVkNqABcuHCIjHURftq2OCSOtCYYsCyt3EcHt CGOjLLPgGRnxYRUlZLMtMND9BYVaFBJzBG0TYhEgFQ UnMAR0OFirIREsOQBlca7DJWNgHNAiThd7CYRbTXUxSVPcXIeuXQHrQOR3ApE6DIHvWZAzYN7GVhMhHH NgNLa2BisfWGLlSYTxbn1GARBzGHDrDWb0RtNaNUEaOACxQOqoZUDrRQQbYXwoKPPsLBFfJF8PVoZmLX LiGKGeWoUnSMFlENLvsc8FDOTeNMMbXFWaQVYwIDTi UYPdLPgmSUZxVOF9UMjbMREzXQCdCM7YBaDhOVTiHLS2HLdkRGHlZGNjam9HTDZzVIEpDvi3HXGpGTWc SVRqZGtpSJNjOAD4QNX5QLNoSFDxCO5XLvGdQOWzNLmoQuowLIMbJGDerk1BLAUrOGBuPAM1XxMkPPAp RONlLTnyRUCbIYY3Spf6XHDoFWMnTH4KGsNrMVExBN d6QLxcGZAxLRFfeg0QDVRaVBGwUCB1GhHvVOFhOPRyVVyjHITuOEK8VjV7ISDnJIXwJD1ZBsDhCTWpCH p5SzYuPWDoUFQjbx5HKAZfDQImOZs8RlOiWBLfRRBdQYvfCVQfEBOfIWzmXNXoLHJyND6SDeXkHQWiTh EuBcPxRMLvOOBuva9TRYAcRDPvVrXyTqEgXVTzJNHs DDmvAHGjGNBbQmHrIXThZXAbBA9EItVnDSPiHeH7MbSiMYIhCLCcgl9ZBAGuSJTdXntcMDVkRBYvHKDy GLhcVEClBJP2UpZnOTNdWYJgYU9IFzPqMQFuPbR1HQGhEIWwMNZvua6UBAEeHFUnDZF8BTToUXKkHMMy YJxcCBDaBZO4FSQ0IBStXDDcXN6AJqHqFMLmMwU9Sf PkNQWvHNClyk3OABCgDTFhWJt1EJZsYINcOJKnDJfwQVVxTRQ7BJC6SXFiSOLbCP4PIpYrXBKwIfH8UQ HsCTMeIMWois0YRBSpNIAnFXA9EoOiCWCyKQTcJIlqNCIeEJZ4HVS8NMBcFKBjZL0DSdIiCTBkHbdmFq PtAOLwHCGezh4DlTLhzHxpwv6AONbCGv7KeLhsUOYa GDcaLg4wkWX9VXPhEBHWNk0NwuOfVAPuEJNVXGqcBGViMSIoPmHpMjZ8BBL4FnVhCJfzMmFrBFUcHHhy VSZnOQY6UaJ8VmMxBZQjYmz9PBT3PXH0KVWlA8C3FtJzVFZxBbF8PwE+VH2eBUq+Fw3Vf9AkwhR8xgVz TPiqFVZhLs0AKEQTJ3XVDv== ID Date Data Source [id number] [facility]/24[facility]2020 02[facility]12[facility] Value Range Interpretation Code Description Data Savi rce(s) Supporting Document(s) Heparin unfractionated [Units/volume] in Platelet poor plasma by [facility] ID Date Data Source [id number] 01/24/2020 08:45:18 [facility] Interpretation Code Description Data Savi rce(s) Supporting Document(s) [facility] JUCTSn1wHqVIBuGyx1QrGaMkHULaJI8dueq8E9W3vBOnC3UxkEKlw0jgT9OkQ3JjXAToIPRMDM8EuCKb jb2 [file] //jPM5z28Y+gue9B8mAc4ur1859U/sc2592Q71/NU3f+Zn9xx8/+rn43892Lxq6t0do533//GrL97+/u 2/v/vx/uxiV510u+8/lNGqb1cp47/78vs/839pz/+/ //E4T42027siG+4/e7224nvbbZgo7nmFE//jTtB1//T03o24X2/0B544R4S0/9uvP7z/9awjRc41/fL7 t3c/bmrn21d//Pr9n/cXXjsqW43vfk/8y+/+9Puf/vntn/7t6qtqdx062LfE7210/vfl60k8776xnkk9 q/dfv/3pI6t3l675++Xh1odB0u/YT3F+2w9t1hp07/ wXi+/Ao/3M7fe//8W/8dJrSsFyveDf/rr2bbdqzVU880y/F+D+UdfW2ReA4wuBCSZkMg7vh97sROB44G kHb851SSfX0+uLV4d+e32kgD0d7w3Ni2/+5ac//Lmi6DC5ga++f70kb//tV+++/aSl7ZO/lJF/ef8nzf xhbmg9IY3a/hUBf5rGgmnRHojijVhlHX/+9Id//5u3 P/3m33/65OyvKfItEubcP/d8t7HKAuCIm632B/76w9vv/vDvP/3pf//mX//J0S97Rs032KctYT+fn/1g f//h+7d//o/Xvf/uj3/4+je5abxhaO6R5QU///EXf//ua9rK67NddZdpdCc5U0z/EDuIIDkb0U3/vt0A bNo0khGcuS8/v6uD/auaH777iYoC//np3/7rm/M8N/ COjx1gd5/n1LMiz0/723/+6R//6me/Ps/hm9/60pfNz94QakDl//jtb/7td7/5w8/+ivsm0Sd/+Pn/n/ dw+L/+03/052XUD0/84+8//+ZlitJB3d26z94+/snUsDfRRLmBG//402//5x9+99vX/X3+JveWyvGz3+ 7SHvHbf/n5O9v6629//f6/Xm/Plj1z08377m12H1// nDPWPQ3+/39yf/Jamar+eA++vf/I+f3uTtj//ftqfje3GAT3M8xj8/DRUvpvv+y4+vEeMeEN/Ug5697pMX 7z+8GtWb3+BP6nk7M5235ytdW301osK3rb6Ve37v/y7XUV3ZXvLpVHC8kpPxtKnefwYlDonKYEatOYZs Lah5QL9LvEHeDYYbW9Q0RLYvgt3tOMTbCWGbmDFhFd CeYNBONW3UcXDhDW8GHFk4ASOdJXVfJrDeSTXazpR9RCHkOOEdMPEfN4XairLpsIKtFGEuCm7+ZW5kb2 OwEaEaVRWeBmv8TC0XaVAgTG1SdHPheC4dvtNcR188kuLeABDjQzuza5NzTPxiGKIKDU9JJWF0WCR2YG AgUj4+HC5ae9YbPaWrYXWmZop1LO6FhZRif3GzXA0A C1IyKRMaLRCOLLT5t4AhJVApewsdgukkO1ZaJVA8yG8jDYR2RFVnIQrbMZXwTXEwHyT7IQUrWPzqVWJp BGRbBGIyBKOqYJa5yWXeHH2HU3TwDSBnDIEKANEfawVbKa5jRFNFFVWNAYAZUYWLThWGXTNfRWK5DvJ7 ZVXvD8JddeKwiREaEFBOAQkpZmrpKOHclT6rgOjpW2 KdXTQ0x4NtSO1ZV5RhLFYgGQTZDYF2z7EdUBTmlcbzqxkaUuJcJREcJBCcCCTiSX1Hea2ytYYocgJrPH VIUFujIbvtVC8mrOeiakysK2OofJRqHDG+HmDbDN9tco0+ExGlQUDfImq0RKWgBBawDISeXOQpWURiK4 gvIVMpHjJnXPXhWbOuSB1Qe8MsrKQjWi0pvgSsBtjS kIXmUkunJBSxTSOoSNBlPyNMZFSlDABbKEOdUIL6PJGgZPZqMYfmGJJcEPR6RLrzAZAbJMRgVI6oEtLu XJIlZvWbTIlnJIKsQSRqpxQXDGQuWFC9ISRkUsDhBINzFPWsOIsnVSNgIDEnZNGhAQX6WZJ2DEZoOdDx YKAvSHEnPTFaCKDuVQBbtoXEGXQhNGHkIDV4KCQgKQ IbWRAuZPnwNYWlJQMqNVhmNOGuMNFwWJ2fWaLoTVRwCAEwMZmxIWLnEBLvboOMOWQhMNXwMPZqULWmKF KeXMWhJKohXMDhDIEnDQFzUJAfKIOdFL7qXcFpQGBpXZB9RAIgSOUeZYZrtmGQLCPlUBSwYGc8TMXmYR JkJRDcBPcvPJThEXBxZJN6IWJaNKGoJM5yKrSqUFTo QBO6AbRwAAFtLKPytzCLGMIjHNPrYWB1AsXeZCUvMRBzYTnmJTHxQNIhKCatXXBpQMWbWS4iBnGeHXMo AQUtFNlxURUvVFIimrGORKDvMQZtZJVvEnGjUJClGLFgQHysQGAlZDR5YBV2ZTOvUUSmQJ0wFsSoDQXq NYN1NCuuTIDbDXXmniJKSVQbSUXiHMqsBBZiNOFvYA EqOVdvICPzPBDwWKB7YBFxDKFyIY8aSsDsVACtFEHhOGXrTuQ2GoJcKvZJkKEshWmnnok8UNbtW7k3RF TzNVkwPJ1uhuZhTINzUbyfJy9njQO7FXRyAtgSAo1Kg0TbcoY9uxTlOtR1CHF9NxSeUU3W ID Date Data Source [id number] 01/24/2020 06:59:29 AM EDT [facility] Name Value Range Interpretation Code Description Data Savi rce(s) Supporting Document(s) Consultation [facility] YKXPSg6vZfEQKySk81/EXVepJHGsn8KpVOzjJFo3EJuhUHMaN2PyTKZ3hB4dGTE2IMrHUeNfIaJwJET9 lbm [file] Linda/ckzCP7GLu2ewE+68swKlZ7OD6lpKjDWyvYa/Xps/PdemqmfXsYvQnbfE/VqdAh+CL5HYk+2gLdc6 ckylaQt+68QnmX+ydMjia8vJvXpb57zD+IyzLYnl6A MOLLqLGpvryeAxtLO8DJ+fHr4CwnGLTSTaAjDsp9tkz3UR2Zk1GzDIbFk1Mu0nzyySIp8I05R1x+q9d/ Uk2WgBHzte4PtzRYtOPpv9eeI8w/J6ck74lt4rR9jnw2qBM4UewCSd6rWk2QVvMYTwQLHP1SQFWC6Hx4 3tGYJk/dbQoOjNMDAKvrBP8Y9P8yMsePQUyafgVrUg 4Gy+9CZpBPT6M3/2FtMmDW62MDuL9Wua2implYnCzAlGFL+Cr/kBp7ZxXVB7TYqEZvQSPDNJZPBPAr+C gafpdUm/ONfnzsVkGVhgVVKelUYYiedEZbgk8kVr5XKCD7SC4CofK0wR+n6kZmZaKutvqr9e4NWNeyMr yViMlA6tiQ73XssFDdS8bdUizj/zJaCiD2J+VRWug8 JWhrp3fPn9DKR1NzqHYVpYPFsLnBkRkuAWKaIhJpXIoxVwuc1AeY8TuqRSa7IYWgW1KkU6YJgGL4lE9w 6XUM28yr894ujXj5JezHwhCK2/IgWusvd5PvvE57Q0s3rcQ8yyqIHd+CRuNIqbJtFIb7PEkqrA6GMjqp [facility]+Qz7sI3r/laq6EAay/kIbaLqns6NebXg4CfPjPS [file] AgICAgICAgICAgICAgICAgICAgICAgICAgICAgICAgICAgICAgICAgICAgICANCiAgICAgICAgICAgIC AgICAgICAgICAgICAgICAgICAgICAgICAgICAgICAg ICAgICAgICAgICAgICAgICAgICAgICAgICAgICAgICAgICAgICAgICAgICAgICAgICAgICAgICANCiAg ICAgICAgICAgICAgICAgICAgICAgICAgICAgICAgICAgICAgICAgICAgICAgICAgICAgICAgICAgICAg ICAgICAgICAgICAgICAgICAgICAgICAgICAgICAgIC AgICAgICANCiAgICAgICAgICAgICAgICAgICAgICAgICAgICAgICAgICAgICAgICAgICAgICAgICAgIC AgICAgICAgICAgICAgICAgICAgICAgICAgICAgICAgICAgICAgICAgICAgICAgICANCiAgICAgICAgIC AgICAgICAgICAgICAgICAgICAgICAgICAgICAgICAg ICAgICAgICAgICAgICAgICAgICAgICAgICAgICAgICAgICAgICAgICAgICAgICAgICAgICAgICAgICAN CiAgICAgICAgICAgICAgICAgICAgICAgICAgICAgICAgICAgICAgICAgICAgICAgICAgICAgICAgICAg ICAgICAgICAgICAgICAgICAgICAgICAgICAgICAgIC AgICAgICAgICANCiAgICAgICAgICAgICAgICAgICAgICAgICAgICAgICAgICAgICAgICAgICAgICAgIC AgICAgICAgICAgICAgICAgICAgICAgICAgICAgICAgICAgICAgICAgICAgICAgICAgICANCiAgICAgIC AgICAgICAgICAgICAgICAgICAgICAgICAgICAgICAg ICAgICAgICAgICAgICAgICAgICAgICAgICAgICAgICAgICAgICAgICAgICAgICAgICAgICAgICAgICAg ICANCiAgICAgICAgICAgICAgICAgICAgICAgICAgICAgICAgICAgICAgICAgICAgICAgICAgICAgICAg ICAgICAgICAgICAgICAgICAgICAgICAgICAgICAgIC AgICAgICAgICAgICANCiAgICAgICAgICAgICAgICAgICAgICAgICAgICAgICAgICAgICAgICAgICAgIC AgICAgICAgICAgICAgICAgICAgICAgICAgICAgICAgICAgICAgICAgICAgICAgICAgICAgICANCjw/eH StP6iwcJRqduF3K1thNb8RYj8BDO5nx2PfGYWuBSzb voNvKjwLIbSkBDLxGxbMBnt6IQbbVX0AbHYsV5VqC9RpUGskIM5CZLLgXGHrfJQwNDCmVOQwWmW8VQXt TOsoRY7GlKAlUKblVKFjBKJqMsZuGPDrHAOeIHSlQAPlIRFLCL3HNyMsP6IzuD74BVMVZp9+DQplbmRv GxtWQhQ4WPZmi9FiAKp7FK5EDACsHjctf1TqNtYyAH NGDUxsDV8WMKA9OCP6RUDjWk0YXRYtY734waZzOQ7CYz0GRuHkVY2pjx1DJhAbUAVaOufMCzy4YMcwEX 9TfAGdLThTb18vrQx3beIvpHMAUAJeg4maIPPrfNVbGPYOTvNIFTM4MIUoQfyiGbNaBWQfCNdnTYDDHB uRVgBgE5Kvd8QiQbV1SWIaCyBcJCtxKQKqIgZ1JR32 iYseHQ4STIDhYOVcNZ05KWC6WIOwKk4BXh4HZbEnWV6csx3EYiVdEGPkYrfDSlw0HKvpAV0QiXQgG0Rj eSHny5bGNkQtI4CTCWLwHDCkZr5ENVGxAqMmEBBoGWkaIQ2lUJXwCNSRyAegypN0DN5BAG6uhzPhXI3L AdVuNb7eFm1UCyBpE9PpI0DrKKInLTXUXDgiEE9ATO smLR8lAU0Dq4GHrMMdcG1yiz7ENKEkGAJtNuyxns1MVdbvT3I7yBhnBIIsUmZkFPOSVDflXE8GWGEzNR T4TQZrFkTbFDTKEzQrR17lCF0XT6Eiv94kDxY5QKClZfFtATsmGF85gCxxnaNenZWchMbpUR0XQy5+DQ plbmRvYmoNCnhyZWYNCjAgMzcNCjAwMDAwMDAwMDAg RwW6RfLbBs4UIPPqBZNnWTBuVkTpKGDsPCJxGHhkFMNhCSM2XjFiSXJmQRXeDU4CSfQxIXKrCzT0PIzg NBWkFPGlpm3PPTXcIUJtMOY9KnHhUVHiVVHhFXjtZIUjDRGkWHWfXMKtDSZhZF1TJaKvMCBlDYIhBvFv ORAcZRNaol9RASPnKEYsUeXzWVJoIKGpVLLzVCmnAN JiVZT8JAQ8XEHgLCPiHI3ZRwNeMCIsCMl7XTQcVYDsAHAzsc7WYVNgZYLvJHg3CPJlIYBmVATtNYkeGV WvTVPzBVE3INYhIPXbYC7UFrUuPOVhSPP0IJVzSKNePYGfun4NZOQdQPRoYViqLKUrDZRsQXNbUJxmRO OsFBYpFHIvMIVhBGUvHN0RNrMqIGXuJSKdIONqNYUc WJZsin7XWYSwHPMaMsD2TNXaPZPmMAVoCGhdPNSbXZBzTnO9ZHOzNHZmED7OMmRhDCBxTCF8NoDiHWYs RJXckm2TXTGoPYUpRZH4ZjPeHURhCZWqTMigXWTiQPU0QPh3USJsYHStZB4SJyGkTIEnTKY0XJAdTFFp EINiib8CCKNbMVRmBZh5RnUfORLvGHHsXSirSWRuGR B3QBKhQTEzTKDcSC5ZWrXhIBMkZCVzHnMvOZRoQTHwey3ZJOBrZYZtKsWsILAzOIAoVFEgSWplOLLeVC Y7CFX0UHDqVAOoCQ0JNhKgKOHzHyifLyIhKBFjUYEoon9ZYLIwJJAfVNX0HFNfWCRfFMIvBMjlHWCzTM T6JRXhPVOzODRuUP9FCwYkBCJuRbyeOiNcLHNtGXCl qq5ZUKWcMSStPTT4XrRgQKPoPXIbDYeaQQKcUEV7LdCqSBEwHJOcCZ9RGdRkHQZaKbOjOwytEPUmJHWf rq8PNZEaRMPvFQKlKmYoKIVjEHNxIGojZGVbFMJxEaH9EDCkMUAqME2HVaOwGMIiMeF9FDDmRAYhAMPj sq5OuBHizWcyla2LXBsENf6SqPcnEUZ6HKslEd0zkU VrEwIpVMSNIr2AexWfCYMhAVRCPAddIYQgBXGdMAEuKvO9WKNoZbLyOSm9EivyXcOwPKQaYIS5HQVyMu C4TNGnQwLfBBD0MqQqYOH4NtOyU9YwMAOqU5VkSmnmSoZ+CA9fXTq+Ax7Uq4HoubK1veSuAGoeQlA5UN 2JNNBLY8DNEy== ID Date Data Source [id number] 01/24/2020 06:05:29 AM EDT [facility] Name Value Range Interpretation Code Description Data Savi rce(s) Supporting Document(s) Leukocytes [#/volume] in Blood by Automated count 13.1 10*3/uL 4-10 [facility] Erythrocytes [#/volume] in Blood by Automated count 5.28 10*6/uL 4.6- 6.1 [facility] Hemoglobin [Mass/volume] in Blood 14.7 g/dL 13.5-18 [facility] Hematocrit [Volume Fraction] of Blood by Automated count 45.0 % 4 1-53 [facility] Erythrocyte mean corpuscular volume [Entitic volume] by Auto mated count 85.2 fL 80-96 [facility] Erythrocyte mean corpuscular hemoglobin [Entitic mass] by Automated count 27.9 pg 27-33 [facility] Erythrocyte mean corpuscular hemoglobin concentration [Mass/volume] by Autom[facility] 32.7 g/[facility].0[facility] width [Ratio] by Automated count 15.5 % 11.5-14.5 H [facility] Platelets [#/volume] in Blood by Automated count 117 10*3/uL 150-400 L [facility] Differential cell count method - Blood [facility] Neutrophils/100 leukocytes in Blood by Automated count 61 % [facility] Lymphocytes/100 leukocytes in Blood by Automated count 28 % [facility] Monocytes/100 leukocytes in Blood by Automated count 7 % [facility] Eosinophils/100 leukocytes in Blood by Automated count 3 % [facility] Basophils/100 leukocytes in Blood by Automated count 1 % [facility] Neutrophils [#/volume] in Blood by Automated count 8.07 10*3/uL 1.8-7 .0 H [facility] Lymphocytes [#/volume] in Blood by Automated count 3.68 10*3/uL 1.2-4 .0 [facility] Monocytes [#/volume] in Blood by Automated count 0.85 10*3/uL 0-0.8 H [facility] Eosinophils [#/volume] in Blood by Automated count 0.40 10*3/uL 0-0.5 [facility] Basophils [#/volume] in Blood by Automated count 0.10 10*3/uL 0-0.2 [facility] Nucleated erythrocytes/100 leukocytes [Ratio] in Blood by Automated count 0 /100{WBCs} 0-0 [facility] ID Date Data Source [id number] 01/24/2020 06:14:04 AM [facility] Name Value Range Interpretation Code Description Data Savi rce(s) Supporting Document(s) Heparin unfractionated [Units/volume] in Platelet poor plasma by Chromogenic method [facility] ID Date Data Source [id number] 01/24/2020 06:23:04 AM [facility] Value Range Interpretation Code Description Data Savi rce(s) Supporting Document(s) Albumin [Mass/volume] in Serum or Plasma by Bromocresol green (BCG) dye binding method 3.4 g/dL 3.5-5.2 L [facility] Bilirubin.total [Mass/volume] in Serum or Plasma 0.9 mg/dL <1.2 [facility] Calcium [Mass/volume] in Serum or Plasma 8.6 mg/dL 8.6-10.0 [facility] Chloride [Moles/volume] in Serum or Plasma 102 mmol/L 98-107 [facility] Creatinine [Mass/volume] in Serum or Plasma 1.53 mg/dL 0.70-1.20 H [facility] Glucose [Mass/volume] in Serum or Plasma 116 mg/dL 70-140 [facility] Alkaline phosphatase [Enzymatic activity/volume] in Serum or Plasma 79 U/L 40-129 [facility] Potassium [Moles/volume] in Serum or Plasma 4.3 mmol/L 3.4-5.1 [facility] Protein [Mass/volume] in Serum or Plasma 7.2 g/dL 6.4-8.3 [facility] Sodium [Moles/volume] in Serum or Plasma 136 mmol/L 136-145 [facility] Aspartate aminotransferase [Enzymatic activity/volume] in Serum or Plasma 17 U/L <40 [facility] Urea nitrogen [Mass/volume] in Serum or Plasma 15 mg/dL 6-20 [facility] Osmolality of Serum or Plasma by calculation 284 mosm/kg 275-300 [facility] Creatinine/Urea nitrogen [Mass Ratio] in Serum or Plasma 10 [facility] Bicarbonate [Moles/volume] in Serum 22 mmol/L 22-29 [facility] Alanine aminotransferase [Enzymatic activity/volume] in Seru m or Plasma 16 U/L <41 [facility] Anion gap 3 in Serum or Plasma 12 mmol/L 8-15 [facility] Albumin/Globulin [Mass Ratio] in Serum or Plasma 0.9 [facility] Glomerular filtration rate/1.73 sq M pre dicted among non-blacks [Volume Rate/Area] in Serum or Plasma by Creatinine-based formula (MDRD) 53 mL/min/1.73m2 >60 L [facility] Glomerular filtration rate/1.73 sq M pre dicted among blacks [Volume Rate/Area] in Serum or Plasma by Creatinine-based formula (MDRD) 61 mL/min/1.73m2 >60 [facility] ID Date Data Source [id number] 01/24/2020 06:23:04 AM [facility] Value Range Interpretation Code Description Data Savi rce(s) Supporting Document(s) Magnesium [Mass/volume] in Serum or Plasma 2.0 mg/dL 1.6-2.6 [facility] ID Date Data Source [id number] 01/24/2020 06:23:04 AM [facility] Value Range Interpretation Code Description Data Savi rce(s) Supporting Document(s) Phosphate [Mass/volume] in Serum or Plasma 3.7 mg/dL 2.5-4.5 [facility] ID Date Data Source [id number] 01/24/2020 06:23:04 AM [facility] Value Range Interpretation Code Description Data Savi rce(s) Supporting Document(s) Troponin T.cardiac [Mass/volume] in Serum or Plasma 0.03 ng/mL <0.01 H [facility] ID Date Data Source [id number] 01/24/2020 12:02:46 AM [facility] Service Cmnt XXX-Imp : NoneMicroorganism XXX Cult : 2019 nCoV Real-Time RT-PCR: NOT DETECTEDTest performed using the [employer] Xpert Xpress SARS-CoV-2 assay. This test is only for use under the Food and Drug Administration's Emergency Use Authorization. Additional information is available on the following FDA websites for health care providers and patients. https://www.fda.gov/media/049755/download , https://www.[employer].gov/maufait/777130/download Name Value Range Interpretation Code Description Data Savi rce(s) Supporting Document(s) ID Date Data Source [id number] [facility]/23/2020 10:41:[facility]-Imp : NoneMicroorganism XXX Cult : 2019 nCoV Real-Time RT-PCR: NOT DETECTEDTest performed using the [employer] Xpert Xpress SARS-CoV-2 assay. This test is only for use under the Food and Drug Administration's Emergency Use Authorization. Additional information is available on the following FDA websites for health care providers and patients. https://www.fda.gov/media/424028/download , https://www.[employer].gov/maufait/617240/download Name Value Range Interpretation Code Description Data Savi rce(s) Supporting Document(s) Microorganism identified in Unspecified specimen by [facility] This lab was ordered by [facility] and reported by [facility]. ID Date Data Source [id number] 01/24/2020 12:00:03 AM [facility] Name Value Range Interpretation Code Description Data Savi rce(s) Supporting Document(s) Leukocytes [#/volume] in Blood by Automated count 15.1 10*3/uL 4-10 H [facility] Erythrocytes [#/volume] in Blood by Automated count 4.98 10*6/uL 4.6- 6.1 [facility] Hemoglobin [Mass/volume] in Blood 14.3 g/dL 13.5-18 [facility] Hematocrit [Volume Fraction] of Blood by Automated count 42.3 % 4 1-53 [facility] Erythrocyte mean corpuscular volume [Entitic volume] by Auto mated count 84.9 fL 80-96 [facility] Erythrocyte mean corpuscular hemoglobin [Entitic mass] by Automated count 28.7 pg 27-33 [facility] Erythrocyte mean corpuscular hemoglobin concentration [Mass/volume] by Automated count 33.8 g/dL 32.0-36.[facility] E[facility]throcyte distribution width [Ratio] by Automated count 15.4 % 11.5-14.5 H [facility] Platelets [#/volume] in Blood by Automated count 124 10*3/uL 150-400 L [facility] Differential cell count method - Blood [facility] Neutrophils/100 leukocytes in Blood by Automated count 66 % [facility] Lymphocytes/100 leukocytes in Blood by Automated count 25 % [facility] Monocytes/100 leukocytes in Blood by Automated count 5 % [facility] Eosinophils/100 leukocytes in Blood by Automated count 3 % [facility] Basophils/100 leukocytes in Blood by Automated count 1 % [facility] Neutrophils [#/volume] in Blood by Automated count 9.96 10*3/uL 1.8-7 .0 H [facility] Lymphocytes [#/volume] in Blood by Automated count 3.85 10*3/uL 1.2-4 .0 [facility] Monocytes [#/volume] in Blood by Automated count 0.80 10*3/uL 0-0.8 [facility] Eosinophils [#/volume] in Blood by Automated count 0.43 10*3/uL 0-0.5 [facility] Basophils [#/volume] in Blood by Automated count 0.09 10*3/uL 0-0.2 [facility] Nucleated erythrocytes/100 leukocytes [Ratio] in Blood by Automated count 0 /100{WBCs} 0-0 [facility] ID Date Data Source [id number] 01/23/2020 10:27:27 PM [facility] Name Value Range Interpretation Code Description Data Savi rce(s) Supporting Document(s) Troponin I.cardiac [Mass/volume] in Blood 0.08 ng/mL 0.00-0.08 [facility] ID Date Data Source [id number] 01/23/2020 10:32:07 PM [facility] Name Value Range Interpretation Code Description Data Savi rce(s) Supporting Document(s) Leukocytes [#/volume] in Blood by Automated count 4-10 [facility] CALLED TO YOGESH PRADHAN RN EER 2227 BY 3650 Erythrocytes [#/volume] in Blood by Automated count 4.6-6. 1 [facility] Hemoglobin [Mass/volume] in Blood 13.5-18 [facility] Hematocrit [Volume Fraction] of Blood by Automated count 4 1-53 [facility] Erythrocyte mean corpuscular volume [Entitic volume] by Automate d count 80-96 [facility] Erythrocyte mean corpuscular hemoglobin [Entitic mass] by Au tomated count 27-33 [facility] Erythrocyte mean corpuscular hemoglobin concentration [Mass/volume] by Automated count 32.0-36.0 [facility] Erythrocyte distribution width [Ratio] by Automated count 11.5-14.5 [facility] Platelets [#/volume] in Blood by Automated count 150-400 [facility] Sample quality of Dried blood spot [facility] Differential cell count method - Blood [facility] ID Date Data Source [id number] 01/23/2020 10:44:22 PM [facility] Name Value Range Interpretation Code Description Data Savi rce(s) Supporting Document(s) Heparin unfractionated [Units/volume] in Platelet poor plasma by Chromogenic method 0.80 U/ml [facility] ID Date Data Source [id number] 01/23/2020 10:55:12 PM [facility] Name Value Range Interpretation Code Description Data Savi rce(s) Supporting Document(s) Bicarbonate [Moles/volume] in Serum 25 mmol/L 22-29 [facility] Chloride [Moles/volume] in Serum or Plasma 102 mmol/L 98-107 [facility] Creatinine [Mass/volume] in Serum or Plasma 1.50 mg/dL 0.70-1.20 H [facility] Glucose [Mass/volume] in Serum or Plasma 110 mg/dL 70-140 [facility] Potassium [Moles/volume] in Serum or Plasma 4.3 mmol/L 3.4-5.1 [facility] Sodium [Moles/volume] in Serum or Plasma 139 mmol/L 136-145 [facility] Urea nitrogen [Mass/volume] in Serum or Plasma 15 mg/dL 6-20 [facility] Anion gap 3 in Serum or Plasma 12 mmol/L 8-15 [facility] Osmolality of Serum or Plasma by calculation 289 mosm/kg 275-300 [facility] Creatinine/Urea nitrogen [Mass Ratio] in Serum or Plasma 10 [facility] Calcium [Mass/volume] in Serum or Plasma 8.4 mg/dL 8.6-10.0 L [facility] Glomerular filtration rate/1.73 sq M pre dicted among non-blacks [Volume Rate/Area] in Serum or Plasma by Creatinine-based formula (MDRD) 54 mL/min/1.73m2 >60 L [facility] Glomerular filtration rate/1.73 sq M pre dicted among blacks [Volume Rate/Area] in Serum or Plasma by Creatinine-based formula (MDRD) 62 mL/min/1.73m2 >60 [facility] ID Date Data Source [id number] 01/15/2020 02:06:57 PM EDT [facility] Measurements & CalculationsHeight: 74 inches 187.96 cm [...] Race: White Ethnicity: Not or Preferred Language: EnglishBioregency and Testt In the past year, have you or [...] medications as well.Was getting some relief from [place] 5 mg but this is less effective than it used to be.No adverse effects from [place].HPI performed by: John Martinez MD, January 15, 2020 2:57 PMTransitions of Care InboundProblem ReviewProblem List was reviewed and/or updated during this visit.Medication Reconciliation & ReviewMedication List was reviewed and/or updated during this visit, including review of any loop-lde-eroujgz medications, herbal therapies, and/or supplements.Allergy ReviewAllergy List [...] & Plan Problems:Assessed:Pain in right hip (ICD-719.45) (ANX17-S82.551) Assessment: Instructions: Fair but lessening control.Temporarly increase the [place] from 5 mg to 7.5 mg.The ultimate answer is weight loss (through bariatric surgery) and Ortho surgery although this is delayed by the pandemic.Recheck one month, sooner as needed.Patient Instructions/Care Plan: Pain in right hip: Fair but lessening control.Temporarly increase the [place] from 5 mg to 7.5 mg.The ultimate [...] John Martinez MD Method used: Electronically to [facility] (retail) [address] [place] [address] Note to Pharmacy: Route: ORAL; RxID: [id number] signed by John Martinez MD on 01/15/2020 at 3:18 PM Name Value Range Interpretation Code Description Data Savi rce(s) Supporting Document(s) ID Date Data Source [id number] 11/20/2019 01:34:12 PM EDT [facility] Measurements & CalculationsWeight: 470 pounds 213.64 kg Vital Signs performed by: Miguel Tafoya MA, November 20, 2019 1:35 PMAssessment & Plan Orders:[id number] Vst-Est Level I [CPT-95680] Labs In-House Name Value Range Interpretation Code Description Data Savi rce(s) Supporting Document(s) ID Date Data Source [id number] 11/10/2019 08:47:59 AM EDT [facility] Measurements & CalculationsHeight: 74 inches (6 ft. [...] Problems:Added: Ex-smoker (ICD-V15.82) (ICD10- Z87.891)Ankle edema (ICD-719.07) (CWL78-P50.0)Assessed:Obesity, unspecified (YZT77-A86.9) Assessment: for by pass surgeryAssessment not SavedEx-smoker (MCK17-N17.891): Medication Changes:New Prescription:EQL NICOTINE POLACRILEX 2 MG MOUTH/THROAT LOZENGE-one lozenge slowly dissolved in mouth q2h prn Qty: 150[Lozenge] Refills: 1 Method: ElectronicOrders:Adult - Ofc Vst, EST, Level III [CPT-98553] COMP METABOLIC PANEL [CPT-27261] CBC W/DIFF [CPT-53314] HgBA1c [CPT-52394] LIPID PANEL [CPT-28196] TSH [CPT-14190] Vitamin D 250H Unspecified [CPT-32989] Medications:EQL NICOTINE POLACRILEX 2 MG MOUTH/THROAT LOZENGE (NI COTINE POLACRILEX) one lozenge slowly dissolved in mouth q2h prn #150[Lozenge] x 1 Route:MOUTH/THROAT Entered and Authorized by: Candelario Casillas DO Method used: Electronically to [facility] (retail) [address] [place] [address] Note to Pharmacy: Route: MOUTH/THROAT; RxID: [id number]] Name Value Range Interpretation Code Description Data Savi rce(s) Supporting Document(s) ID Date Data Source [id number] 11/08/2019 09:58:45 AM EDT [facility] [address] [address]Zyq# Surgical Pathology ReportAccession #:[id number](s) ReceivedA: Antrum bxs, r/o H. pyloriClinical Diagnosis and HistoryEsophageal reflux DIAGNOSISSTOMACH, ANTRUM, BIOPSY: MILD CHRONIC GASTRITIS. NEGATIVE FOR HELICOBACTER PYLORI BY IMMUNOSTAIN. Gross DescriptionReceived in formalin labeled "antrum biopsies rule out H. pylori" are twotan-pink irregular fragments of tissue measuring 0.3 and 0.7 cm. Entirelysubmitted as A1. 1 + 1. Processed at [facility], Histopathology, [address] [place] [address], [address].jmarley/[email or web address] Reported: 11/08/2019Electronically Signed Out By Aston Rojas MD [facility] This report may include immunohistochemical or in-situ hybridizationresults. Testing was developed and the performance characteristicsdetermined by [facility] as required by CLIA '88. The FDAhas determined that approval for specific use is not necessary forclinical use. The quality of Hematoxylin and Eosin stains and asapplicable, for all immunohistochemical and/or special stains, in cludingpositive and negative controls, were reviewed and considered appropriate.ICD codes K21.9 K29.30CPT codesA: 41549J, 21317z Name Value Range Interpretation Code Description Data Savi rce(s) Supporting Document(s) ID Date Data Source [id number] 11/06/2019 09:31:43 AM EDT [facility] NT INFORMATIONPatient MRN Name Date of Age Gend*PT [id number] Wei Rothman 1970 49 years M OPPT Location Admission Date/Time [facility] --- Himanshu Guerrier MD([id number]) EPI ID CSN Admitting Provider [id number] Himanshu Guerrier MD([id number])Endoscopic Gastroduodenoscopy Procedure NotePatient: Wei BryansukhjinderSurgery Date: November [...] Name Value Range Interpretation Code Description Data [facility] Supporting Document(s) ID Date Data Source [id number] 11/06/2019 08:47:46 AM EDT [facility] NT INFORMATIONPatient MRN Name Date of Age Gend*PT [id number] Wei Rothman 1970 49 years M OPPT Location Admission Date/Time Visit ID Attending [facility] 11/06/197[address] --- Himanshu Guerrier MD([id number]) EPI ID CSN Admitting Provider [id number] Himanshu Guerrier MD([id number])H&P reviewed. The patient was examined and there are no changes to the H&P.Himanshu Guerrier MD8:47 AM Name Value Range Interpretation Code Description Data [facility](s) Supporting Document(s) ID Date Data Source [id number] 11/06/2019 08:47:41 AM EDT [facility] NT INFORMATIONPatient MRN Name Date of Age Gend*PT [id number] Wei Rothman 1970 49 years M OPPT Location Admission Date/Time Visit ID Attending [facility] 11/06/19724 --- Himanshu Guerrier MD([id number]) EPI ID CSN Admitting Provider [id number] Himanshu Guerrier MD([id number])Pre-Procedure History and Physical:Past Medical History:Diagnosis Date Arthritis [...] rce(s) Supporting Document(s) ID Date Data Source [id number] 10/31/2019 10:21:01 AM EST [facility] Labs In-House Blood TestsDate/Time Colle cted: October 31, 2019 8:20 AMTest Result Reference Range Normal ValueComments: blood draw done in office, taken from left hand, tolerated well.Emely Schmitt, October 31, 2019 10:21 AMAssessment & Plan Orders:[id number] Vst-Est Level I [CPT-18015] 87636 - Venipuncture [CPT-53264] Name Value Range Interpretation Code Description Data Savi rce(s) Supporting Document(s) ID Date Data Source [id number] 10/31/2019 08:20:00 AM EST [facility] Name Value Range Interpretation Code Description Data Savi rce(s) Supporting Document(s) BG FASTING 206 mg/dL 70-100 H [facility] ID Date Data Source [id number] 10/31/2019 08:20:00 AM EST [facility] Name Value Range Interpretation Code Description Data Savi rce(s) Supporting Document(s) HGBA1C 6.1 % N [facility] ID Date Data Source [id number] 10/20/2019 01:09:31 PM EST [facility] Measurements & CalculationsWeight: 454 pounds 7 oz. 206.56 kg Vital Signs performed by: Miguel Tafoya MA, October 20, 2019 1:21 PMAssessment & Plan Orders:[id number] Vst-Est Level I [CPT-72720] Name Value Range Interpretation Code Description Data Savi rce(s) Supporting Document(s) ID Date Data Source [id number] 09/20/2019 08:33:41 PM EST [facility] [place] [facility] Name Value Range Interpretation Code Description Data Savi rce(s) Supporting Document(s) HEMOGLOBIN A1C @ 5.6 % (4.0-6.0) [facility] [facility] Performed using Siemens Tipton immunoassa y.Care must be taken when interpreting [id number] in patients with a hemoglobin variantor decreased erythrocyte lifespan. Values 5.7 - 6.4% suggest prediabetes.Values >=6.5% are diagnostic for diabetes.REFERENCE: DIABETES CARE 2018: 41(S13-S27). EST AVERAGE GLUCOSE 114 mg/dL [facility] [place] [facility] ID Date Data Source [id number] 09/20/2019 08:01:07 PM EST [facility] [facility] Name Value Range Interpretation Code Description Data Saiv rce(s) Supporting Document(s) TSH,ULTRASENSITIVE @ 4.670 mIU/L (0.360-4.170) H Laboratory [place] [facility] Procedure Social History Code Duration Value Status Description Data Source(s ) 05/14/2020 12:00:00 AM EDT Patient is a current smoker, smokes every day completed Patient is a current smoker, smokes every day MEDENT ( [facility]) Alcohol intake 01/24/2020 12:00:00 AM EDT Ex-drinker (finding) comp leted Ex- drinker (finding) [facility] Smoking 01/24/2020 12:00:00 AM EDT Current some day smoker com pleted Current some day smoker [facility] Alcohol intake 11/06/2019 12:00:00 AM EDT Never completed [facility] Smoking 11/06/2019 12:00:00 AM EDT Current some day smoker com pleted Current some day smoker [facility] Vital Signs ID Date Data Source UNK Name Value Range Interpretation Code Description Data Source(s) Body weight 8018 [oz_av] 8018 [oz_av] CASSIE ([facility]) Systolic blood pressure 119 mm[Hg] 119 mm[Hg] A THENA ([facility]) Body mass index (BMI) [Ratio] 64.3 kg/m2 64.3 k g/m2 CASSIE ([facility]) Body height 74 [in_i] 74 [in_i] CASSIE ([facility]) Diastolic blood pressure 76 mm[Hg] 76 mm[Hg] CASSIE ([facility]) Body surface area Derived from formula 3.14 m2 3.14 m2 [facility] Body weight 220.903 kg 220.903 kg [facility] ([facility], ) [place] body weight 184 [lb_av] 184 [lb_av] MEDEN T ([facility]) Body mass index (BMI) [Ratio] 64.2 kg/m2 64.2 k g/m2 [facility] ([facility], ) Body weight 487.00 [lb_av] 487.00 [lb_av] [facility] PT States Body height 73 [in_i] 73 [in_i] [facility] ([facility]) 6'1" Body temperature 96.8 [degF] 96.8 [degF] [facility] ([facility]) Oxygen saturation in Arterial blood by Pulse oximetry 97 % 97 % [facility] ([facility]) Heart rate 122 /min 122 /min [facility] ([facility], ) Diastolic blood pressure 80 mm[Hg] 80 mm[Hg] [facility] ([facility]) Systolic blood pressure 130 mm[Hg] 130 mm[Hg] [facility] Body weight 7472 [oz_av] 7472 [oz_av] CASSIE ([facility]) Systolic blood pressure 111 mm[Hg] 111 mm[Hg] A [facility] ([facility]) Body mass index (BMI) [Ratio] 60 kg/m2 60 kg/ m2 CASSIE ([facility]) Body height 74 [in_i] 74 [in_i] CASSIE ([facility]) Diastolic blood pressure 61 mm[Hg] 61 mm[Hg] CASSIE ([facility]) Body weight 7472 [oz_av] 7472 [oz_av] CASSIE ([facility]) Systolic blood pressure 111 mm[Hg] 111 mm[Hg] A THENA ([facility]) Body mass index (BMI) [Ratio] 60 kg/m2 60 kg/ m2 CASSIE ([facility]) Body height 74 [in_i] 74 [in_i] CASSIE ([facility]) Diastolic blood pressure 61 mm[Hg] 61 mm[Hg] CASSIE ([facility]) Body weight 7472 [oz_av] 7472 [oz_av] CASSIE ([facility]) Systolic blood pressure 130 mm[Hg] 130 mm[Hg] A [facility] ([facility]) Body mass index (BMI) [Ratio] 60 kg/m2 60 kg/ m2 CASSIE ([facility]) Body height 74 [in_i] 74 [in_i] CASSIE ([facility]) Diastolic blood pressure 84 mm[Hg] 84 mm[Hg] CASSIE ([facility]) Body weight 7472 [oz_av] 7472 [oz_av] CASSIE ([facility]) Systolic blood pressure 130 mm[Hg] 130 mm[Hg] A THEN ([facility]) Body mass index (BMI) [Ratio] 60 kg/m2 60 kg/ m2 CASSIE ([facility]) Body height 74 [in_i] 74 [in_i] CASSIE ([facility]) Diastolic blood pressure 84 mm[Hg] 84 mm[Hg] CASSIE ([facility]) Body weight 7472 [oz_av] 7472 [oz_av] CASSIE ([facility]) Systolic blood pressure 130 mm[Hg] 130 mm[Hg] A THEN ([facility]) Body mass index (BMI) [Ratio] 60 kg/m2 60 kg/ m2 CASSIE ([facility]) Body height 74 [in_i] 74 [in_i] CASSIE ([facility]) Diastolic blood pressure 84 mm[Hg] 84 mm[Hg] CASSIE ([facility]) Body surface area Derived from formula 3.14 m2 3.14 m2 MEDVISHAL ([facility]) Body weight 221.073 kg 221.073 kg KYLEE [facility] [place] body weight 184 [lb_av] 184 [lb_av] FUENTES T ([facility], ) Body mass index (BMI) [Ratio] 64.3 kg/m2 64.3 k g/m2 [facility] ([facility]) Body weight 487.38 [lb_av] 487.38 [lb_av] [facility] Body height 73 [in_i] 73 [in_i] [facility] ([facility]) 6'1" Body temperature 96.8 [degF] 96.8 [degF] [facility] ([facility]) Oxygen saturation in Arterial blood by Pulse oximetry 97 % 97 % [facility] ([facility]) Heart rate 102 /min 102 /min [facility] ([facility]) Diastolic blood pressure 88 mm[Hg] 88 mm[Hg] [facility] ([facility]) Systolic blood pressure 142 mm[Hg] 142 mm[Hg] M WINSOME ([facility]) Body weight 7394.08 [oz_av] 7394.08 [oz_av] ATH MILAGROS ([facility]) Systolic blood pressure 103 mm[Hg] 103 mm[Hg] A [facility] ([facility]) Body height 74 [in_i] 74 [in_i] CASSIE ([facility]) Diastolic blood pressure 71 mm[Hg] 71 mm[Hg] CASSIE ([facility]) Body weight 7394.08 [oz_av] 7394.08 [oz_av] ATH MILAGROS ([facility]) Systolic blood pressure 103 mm[Hg] 103 mm[Hg] A [facility] ([facility]) Body height 74 [in_i] 74 [in_i] CASSIE ([facility]) Diastolic blood pressure 71 mm[Hg] 71 mm[Hg] CASSIE ([facility]) Body weight 7394.08 [oz_av] 7394.08 [oz_av] ATH MILAGROS ([facility]) Systolic blood pressure 103 mm[Hg] 103 mm[Hg] A [facility] ([facility]) Body height 74 [in_i] 74 [in_i] CASSIE ([facility]) Diastolic blood pressure 71 mm[Hg] 71 mm[Hg] CASSIE ([facility]) Body weight 7478.4 [oz_av] 7478.4 [oz_av] ATHEN A ([facility]) Systolic blood pressure 121 mm[Hg] 121 mm[Hg] A [facility]) Body height 74 [in_i] 74 [in_i] CASSIE ([facility]) Diastolic blood pressure 77 mm[Hg] 77 mm[Hg] CASSIE ([facility]) Body weight 7478.4 [oz_av] 7478.4 [oz_av] ATHEN A ([facility]) Systolic blood pressure 121 mm[Hg] 121 mm[Hg] A [facility] ([facility]) Body height 74 [in_i] 74 [in_i] CASSIE ([facility]) Diastolic blood pressure 77 mm[Hg] 77 mm[Hg] CASSIE ([facility]) Body weight 7478.4 [oz_av] 7478.4 [oz_av] ATHEN A ([facility]) Systolic blood pressure 121 mm[Hg] 121 mm[Hg] A [facility] ([facility]) Body height 74 [in_i] 74 [in_i] CASSIE ([facility]) Diastolic blood pressure 77 mm[Hg] 77 mm[Hg] CASSIE ([facility]) Body weight 7465.6 [oz_av] 7465.6 [oz_av] ATHEN A ([facility]) Systolic blood pressure 120 mm[Hg] 120 mm[Hg] A [facility] ([facility]) Body height 74 [in_i] 74 [in_i] CASSIE ([facility]) Diastolic blood pressure 84 mm[Hg] 84 mm[Hg] CASSIE ([facility]) Body weight 7465.6 [oz_av] 7465.6 [oz_av] ATHEN A ([facility]) Systolic blood pressure 120 mm[Hg] 120 mm[Hg] A [facility] ([facility]) Body height 74 [in_i] 74 [in_i] CASSIE ([facility]) Diastolic blood pressure 84 mm[Hg] 84 mm[Hg] CASSIE ([facility]) Body weight 7465.6 [oz_av] 7465.6 [oz_av] ATHEN A ([facility]) Systolic blood pressure 120 mm[Hg] 120 mm[Hg] A [facility] ([facility]) Body height 74 [in_i] 74 [in_i] CASSIE ([facility]) Diastolic blood pressure 84 mm[Hg] 84 mm[Hg] CASSIE ([facility]) Body weight 7520 [oz_av] 7520 [oz_av] CASSIE ([facility]) Body weight 7520 [oz_av] 7520 [oz_av] CASSIE ([facility]) Body weight 7520 [oz_av] 7520 [oz_av] CASSIE ([facility]) Body weight 7508 [oz_av] 7508 [oz_av] CASSIE ([facility]) Systolic blood pressure 144 mm[Hg] 144 mm[Hg] A [facility] ([facility]) Body height 74 [in_i] 74 [in_i] CASSIE ([facility]) Diastolic blood pressure 78 mm[Hg] 78 mm[Hg] CASSIE ([facility]) Body weight 7508 [oz_av] 7508 [oz_av] CASSIE ([facility]) Systolic blood pressure 144 mm[Hg] 144 mm[Hg] A [facility] ([facility]) Body height 74 [in_i] 74 [in_i] CASSIE ([facility]) Diastolic blood pressure 78 mm[Hg] 78 mm[Hg] CASSIE ([facility]) Body weight 7508 [oz_av] 7508 [oz_av] CASSIE ([facility]) Systolic blood pressure 144 mm[Hg] 144 mm[Hg] A [facility] ([facility]) Body height 74 [in_i] 74 [in_i] CASSIE ([facility]) Diastolic blood pressure 78 mm[Hg] 78 mm[Hg] CASSIE ([facility]) Oxygen saturation in Arterial blood by Pulse oximetry 95 % 95 % [facility] Body temperature 36.44 Sonal 36.44 Sonal [facility] Heart rate 73 /min 73 /min [facility] Diastolic blood pressure 71 mm[Hg] 71 mm[Hg] [facility] Systolic blood pressure 102 mm[Hg] 102 mm[Hg] [facility] Respiratory rate 16 /min 16 /min [facility] Body mass index (BMI) [Ratio] 52.77 kg/m2 52.77 kg/m2 [facility] Body weight 181.439 kg 181.439 kg [facility] Body height 185.4 cm 185.4 cm [facility] Body weight 7271.04 [oz_av] 7271.04 [oz_av] ATH MILAGROS ([facility]) Body weight 7271.04 [oz_av] 7271.04 [oz_av] ATH MILAGROS ([facility]) Body weight 7271.04 [oz_av] 7271.04 [oz_av] ATH [facility] ([facility]) ID Date Data Source [id number] 01/31/2020 11:10:09 AM [facility] Name Value Range Interpretation Code Description Data Source(s) WEIGHT RECORDED 460.2 lb 460.2 lb [facility] Body height Measured 73 in 73 in [facility] Patient Treatment Plan of Care Planned Activity Planned Date Details Description Data Source (s) Levothyroxine 02/20/2020 01:00:00 AM EDT [facility]) Tylenol 02/20/2020 01:00:00 AM EDT [facility] ([facility]) Nicotine Mini 2 MG 02/20/2020 01:00:00 AM EDT [facility]) Eliquis 5 MG 02/20/2020 01:00:00 AM EDT [facility] ([facility]) apixaban 5 MG Oral Tablet 02/07/2020 12:00:00 AM [facility] apixaban 5 MG Oral Tablet 02/03/2020 12:00:00 AM [facility] Eliquis 5 MG 01/30/2020 01:00:00 AM EDT [facility] ([facility]) Lortab 5-325 MG 01/30/2020 01:00:00 AM EDT EDELMIRAT ([facility]) Omeprazole 40 MG 01/30/2020 01:00:00 AM EDT EDELMIRAT ([facility]) Colace 01/30/2020 01:00:00 AM EDT N VIGNESH ([facility]) apixaban 5 MG Oral Tablet 01/27/2020 09:00:00 PM [facility] Acetaminophen 325 MG / Hydrocodone Bitartrate 5 MG Ora l Tablet 01/27/2020 01:06:12 PM [facility] apixaban 5 MG Oral Tablet 01/27/2020 12:00:00 AM [facility] apixaban 5 MG Oral Tablet 01/27/2020 12:00:00 AM [facility] Acetaminophen 325 MG / Hydrocodone Bitartrate 5 MG Ora l Tablet 01/27/2020 12:00:00 AM [facility] ospital apixaban 5 MG Oral Tablet 01/27/2020 12:00:00 AM [facility] apixaban 5 MG Oral Tablet 01/27/2020 12:00:00 AM [facility] Acetaminophen 325 MG / Hydrocodone Bitartrate 5 MG Ora l Tablet 01/27/2020 12:00:00 AM [facility] ospital apixaban 5 MG Oral Tablet 01/27/2020 12:00:00 AM [facility] apixaban 5 MG Oral Tablet 01/27/2020 12:00:00 AM [facility] apixaban 5 MG Oral Tablet 01/27/2020 12:00:00 AM [facility] Omeprazole 40 MG Delayed Release Oral Capsule 12/22/2019 12:00:00 A M [facility] Acetaminophen 325 MG / Hydrocodone Bitartrate 5 MG Ora l Tablet 12/21/2019 12:00:00 AM [facility] ospital Furosemide 40 MG Oral Tablet CASSIE ([facility]) Doxycycline Monohydrate 100 MG Oral Capsule CASSIE ([facility])
[2020-10-16 04:31] LABS: ABG BASE EXCESS -0.4 (-2.0-2.0); ABG HCO3 24.1 MEQ/L (22.0-26.0); ABG O2 SATURATION 97.4 % (95.0-99.0); ABG PARTIAL PRESSURE O2 86.7 mmHg (75.0-100.0); ABG STANDARD HCO3 24.1 MEQ/L (22.0-26.0); ABG TOTAL CO2 25.3 MEQ/L (22.0-29.0); ABG pH (ARTERIAL) 7.408 UNITS (7.350-7.450)
[2020-10-16 04:36] LABS: BLOOD UREA NITROGEN 11 MG/DL (7-18); CARBON DIOXIDE LEVEL 27 MEQ/L (21-32); CHLORIDE LEVEL 107 MEQ/L (98-107); CK-MB VALUE MASS 1.1 NG/ML (<3.6); CPK CREATINE PHOSPHOKINASE 109 U/L (39-308); CREATININE FOR GFR 1.08 MG/DL (0.70-1.30); GLOMERULAR FILTRATION RATE > 60.0 (>60); GLUCOSE, FASTING 190 MG/DL (70-100); MB/CK RELATIVE INDEX 1.01 (< OR =4); NT-PRO BNP 179 PG/ML (<125); POTASSIUM SERUM 4.2 MEQ/L (3.5-5.1); SODIUM LEVEL 142 MEQ/L (136-145); TROPONIN I < 0.02 NG/ML (< 0.10)
[2020-10-16 04:40] LABS: RSV AMPLIFICATION NEGATIVE (NEGATIVE)
--- NOTE | 2020-10-16 05:08 | REPVR ---
PROCEDURE INFORMATION: Exam: US Duplex Lower Extremity Veins, Bilateral Exam date and time: 10/16/2020 4:32 AM Age: 50 years old Clinical indication: Edema, localized; Lower extremity, bilateral; Additional info: B/l leg swelling TECHNIQUE: Imaging protocol: Real-time duplex ultrasound of the extremities with 2-D dewitt scale, color Doppler flow and spectral waveform analysis with image documentation. Complete exam focused on the bilateral lower extremity veins. COMPARISON: US Duplex, Ext LOWER veins, bilat 07/08/2020 2:25 AM FINDINGS: Evaluation is limited due to patient body habitus. Right deep veins: No deep venous thrombosis in the visualized right common femoral, femoral, or popliteal veins. Left deep veins: No deep venous thrombosis in the visualized left common femoral, femoral, or popliteal veins. Soft tissues: Unremarkable. IMPRESSION: No deep venous thrombosis in the visualized bilateral lower extremities. Electronically signed by: Wie Briones On 10/16/2020 05:08:20 AM
--- NOTE | 2020-10-16 05:09 | REPVR ---
PROCEDURE INFORMATION: Exam: XR Chest, 1 View Exam date and time: 10/16/2020 4:24 AM Age: 50 years old Clinical indication: Chest pain TECHNIQUE: Imaging protocol: XR of the chest Views: 1 view. COMPARISON: CR PORTABLE CHEST X-RAY 06/28/2020 2:08 AM FINDINGS: Lungs: Hyperinflation and interstitial prominence. Pleural spaces: No significant pleural effusion. Heart/Mediastinum: Cardiomegaly and prominent epicardial fat. Bones/joints: Unremarkable. IMPRESSION: Hyperinflation and interstitial prominence. Electronically signed by: Wei Briones On 10/16/2020 05:09:03 AM
[2020-10-16] MEDS ORDERED: PROAAER10 INH (05:33)
[2020-10-16] MEDS ORDERED: LASI20TA3 PO (05:33)
[2020-10-16] MEDS ORDERED: FUROSEMIDE 20 MG TAB PO ONE (05:45)
[2020-10-16 06:03] VITALS: BP 113/58
--- NOTE | 2020-10-16 07:32 | ECGEPIP ---
[facility] - ED Test Date: 2020-10-16 Pat Name: NASH ROTHMAN Department: Room: - Gender: Male [employer]: : 1970 Requested By: AGUSTIN Donaldson Order Number: [id number] Reading MD: Eugene Mcelroy Measurements Intervals [place] Rate: 107 P: 48 PA: 140 QRS: -11 QRSD: 92 T: 33 QT: 318 QTc: 424 Interpretive Statements Sinus tachycardia Low voltage QRS POOR R WAVE PROGRESSION Inferior infarct, age undetermined SIMILAR TO 06/28/20 Electronically Signed on 10-16-2020 7:31:56 EST by Eugene Mcelroy
== END 2020-10-16 06:40 | disposition home or self-care (01) ==
LOC: M ED 02:30
DX: R22.43 Localized swelling, mass and lump, lower limb, bilateral (principal); R06.00 Dyspnea, unspecified; R00.0 Tachycardia, unspecified; I51.7 Cardiomegaly; R91.8 Other nonspecific abnormal finding of lung field; Z86.718 Personal history of other venous thrombosis and embolism; E66.01 Morbid (severe) obesity due to excess calories; Z68.45 Body mass index [BMI] 70 or greater, adult; K21.9 Gastro-esophageal reflux disease without esophagitis; Z79.01 Long term (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s; Z79.899 Other long term (current) drug therapy; Z88.8 Allergy status to other drugs, medicaments and biological substances

== ENCOUNTER 2020-10-23 01:00 | Inpatient (IN) | payer OTHER ==
[~2020-10-23] VITALS: Ht 185.4 cm; Wt 259.7 kg
[~2020-10-23 01:00] MED LIST changes: +HYDR-3716 PO; +LASI20TA3 PO; +PROAAER10 INH
--- OUTSIDE RECORDS SUMMARY | 2020-10-23 01:06 | CCD ---
Author Author [facility] Organization [facility] Address Unknown Phone Unavailable Care Team Providers Care Equipment Tech Name Role Phone Taye AMEZCUA Unavailable Unavailable [...] Unavailable Unavailable Anika FRY MD Unavailable Unavailable Sam STEPHENS MD Unavailable Unavailable Sam STEPHENS MD Unavailable Unavailable Sma STEPHENS MD Unavailable Unavailable Sam STEPHENS MD Unavailable Unavailable Sam STEPHENS MD Unavailable Unavailable Sam STEPHENS MD Unavailable Unavailable STEPHENS, Sam TURPIN MD Unavailable Unavailable STEPHENS, Sam TURPIN MD Unavailable Unavailable STEPHENS, Sam TURPIN MD Unavailable Unavailable STEPHENS, Sam TURPIN MD Unavailable Unavailable STEPHENS, Sam TURPIN MD Unavailable Unavailable STEPHENS, Sam TURPIN MD Unavailable Unavailable STEPHENS, Sam TURPIN MD Unavailable Unavailable STEPHENS, Sam TURPIN MD Unavailable Unavailable STEPHENS, Sam TURPIN MD Unavailable Unavailable STEPHENS, Sam TURPIN MD Unavailable Unavailable STEPHENS, Sam TURPIN MD Unavailable Unavailable STEPHENS, Sam TURPIN MD Unavailable Unavailable STEPHENS, Sam TURPIN MD Unavailable Unavailable STEPHENS, Sam TURPIN MD Unavailable Unavailable STEPHENS, Sam TURPIN MD Unavailable Unavailable STEPHENS, Sam TURPIN MD Unavailable Unavailable STEPHENS, Sam TURPIN MD Unavailable Unavailable STEPHENS, Sam TURPIN MD Unavailable Unavailable STEPHENS, Sam TURPIN MD Unavailable Unavailable STEPHENS, Sam TURPIN MD Unavailable Unavailable STEPHENS, Sam TURPIN MD Unavailable Unavailable STEPHENS, Sam TURPIN MD Unavailable Unavailable STEPHENS, Sam TURPIN MD Unavailable Unavailable STEPHENS, Sam TURPIN MD Unavailable Unavailable STEPHENS, Sam TURPIN MD Unavailable Unavailable STEPHENS, Sam TURPIN MD Unavailable Unavailable STEPHENS, Sam TURPIN MD Unavailable Unavailable STEPHENS, Sam TURPIN MD Unavailable Unavailable STEPHENS, Sam TURPIN MD Unavailable Unavailable STEPHENS, Sma TURPIN MD Unavailable Unavailable STEPHENS, Sam TURPIN MD Unavailable Unavailable STEPHENS, Sam TURPIN MD Unavailable Unavailable STEPHENS, Sam TURPIN MD Unavailable Unavailable STEPHENS, Sam TURPIN MD Unavailable Unavailable STEPHENS, Sam TURPIN MD Unavailable Unavailable STEPHENS, Sam TURPIN MD Unavailable Unavailable STEPHENS, Sam TURPIN MD Unavailable Unavailable STEPHENS, Sam TURPIN MD Unavailable Unavailable STEPHENS, Sam TURPIN MD Unavailable Unavailable STEPHENS, Sam TURPIN MD Unavailable Unavailable STEPHENS, Sam TURPIN MD Unavailable Unavailable STEPHENS, Sam TURPIN MD Unavailable Unavailable STEPHENS, Sam TURPIN MD Unavailable Unavailable STEPHENS, Sam TURPIN MD Unavailable Unavailable STEPHENS, Sam TURPIN MD Unavailable Unavailable STEPHENS, Sam TURPIN MD Unavailable Unavailable STEPHENS, Sam TURPIN MD Unavailable Unavailable STEPHENS, Sam TURPIN MD Unavailable Unavailable STEPHENS, Sam TURPIN MD Unavailable Unavailable STEPHENS, Sam TURPIN MD Unavailable Unavailable STEPHENS, Sam TURPIN MD Unavailable Unavailable STEPHENS, Sam TURPIN MD Unavailable Unavailable STEPHENS, Sam TURPIN MD Unavailable Unavailable STEPHENS, Sam TURPIN MD Unavailable Unavailable STEPHENS, Sam TURPIN MD Unavailable Unavailable STEPHENS, Sam TURPIN MD Unavailable Unavailable STEPHENS, Sam TURPIN MD Unavailable Unavailable STEPHENS, Sam TURPIN MD Unavailable Unavailable STEPHENS, Sam TURPIN MD Unavailable Unavailable STEPHENS, Sam TURPIN MD Unavailable Unavailable STEPHENS, Sam TURPIN MD Unavailable Unavailable STEPHENS, Sam TURPIN MD Unavailable Unavailable STEPHENS, Sam TURPIN MD Unavailable Unavailable STEPHENS, Sam TURPIN MD Unavailable Unavailable STEPHENS, Sam TURPIN MD Unavailable Unavailable STEPHENS, Sam TURPIN MD Unavailable Unavailable STEPHENS, Sam TURPIN MD Unavailable Unavailable STEPHENS, Sam TURPIN MD Unavailable Unavailable STEPHENS, Sam TURPIN MD Unavailable Unavailable STEPHENS, Sam TURPIN MD Unavailable Unavailable STEPHENS, Sam TURPIN MD Unavailable Unavailable STEPHENS, Sam TURPIN MD Unavailable Unavailable STEPHENS, Sam TURPIN MD Unavailable Unavailable STEPHENS, Sam TURPIN MD Unavailable Unavailable STEPHENS, Sam TURPIN MD Unavailable Unavailable STEPHENS, Sam TURPIN MD Unavailable Unavailable STEPHENS, Sam TURPIN MD Unavailable Unavailable STEPHENS, Sam TURPIN MD Unavailable Unavailable STEPHENS, Sam TURPIN MD Unavailable Unavailable STEPHENS, Sam TURPIN MD Unavailable Unavailable STEPHENS, Sam TURPIN MD Unavailable Unavailable STEPHENS, Sam TURPIN MD Unavailable Unavailable STEPHENS, Sam TURPIN MD Unavailable Unavailable STEPHENS, Sam TURPIN MD Unavailable Unavailable STEPHENS, Sam TURPIN MD Unavailable Unavailable STEPHENS, Sam TURPIN MD Unavailable Unavailable STEPHENS, Sam TURPIN MD Unavailable Unavailable STEPHENS, Sam TURPIN MD Unavailable Unavailable STEPHENS, Sam TURPIN MD Unavailable Unavailable STEPHENS, Sam TURPIN MD Unavailable Unavailable STEPHENS, Sam TURPIN MD Unavailable Unavailable STEPHENS, Sam TURPIN MD Unavailable Unavailable STEPHENS, Sam TURPIN MD Unavailable Unavailable STEPHENS, Sam TURPIN MD Unavailable Unavailable STEPHENS, Sam TURPIN MD Unavailable Unavailable STEPHENS, Sam TURPIN MD Unavailable Unavailable STEPHENS, Sam TURPIN MD Unavailable Unavailable STEPHENS, Sam TURPIN MD Unavailable Unavailable STEPHENS, Sam TURPIN MD Unavailable Unavailable STEPHENS, Sam TURPIN MD Unavailable Unavailable STEPHENS, Sam TURPIN MD Unavailable Unavailable STEPHENS, Sam TURPIN MD Unavailable Unavailable STEPHENS, Sam TURPIN MD Unavailable Unavailable STEPHENS, Sam TURPIN MD Unavailable Unavailable STEPHENS, Sam TURPIN MD Unavailable Unavailable STEPHENS, Sam TURPIN MD Unavailable Unavailable STEPHENS, Sam TURPIN MD Unavailable Unavailable STEPHENS, Sam TURPIN MD Unavailable Unavailable STEPHENS, Sam TURPIN MD Unavailable Unavailable ROSE, JAVIER ANNA ASSISTANT PROSECUTING ATTORNEY-C Unavailable Unavailable ROSE, JAVIER ANNA ASSISTANT PROSECUTING ATTORNEY-C Unavailable Unavailable ROSE, JAVIER ANNA ASSISTANT PROSECUTING ATTORNEY-C Unavailable Unavailable ROSE, JAVIER ANNA ASSISTANT PROSECUTING ATTORNEY-C Unavailable Unavailable ROSE, JAVIER ANNA ASSISTANT PROSECUTING ATTORNEY-C Unavailable Unavailable ROSE, JAVIER ANNA ASSISTANT PROSECUTING ATTORNEY-C Unavailable Unavailable ROSE, JAVIER ANNA ASSISTANT PROSECUTING ATTORNEY-C Unavailable Unavailable ROSE, JAVIER ANNA ASSISTANT PROSECUTING ATTORNEY-C Unavailable Unavailable ROSE, JAVIER ANNA ASSISTANT PROSECUTING ATTORNEY-C Unavailable Unavailable ROSE, JAVIER ANNA ASSISTANT PROSECUTING ATTORNEY-C Unavailable Unavailable ROSE, JAVIER ANNA ASSISTANT PROSECUTING ATTORNEY-C Unavailable Unavailable ROSE, JAVIER ANNA ASSISTANT PROSECUTING ATTORNEY-C Unavailable Unavailable ROSE, JAVIER ANNA ASSISTANT PROSECUTING ATTORNEY-C Unavailable Unavailable ROSE, JAVIER ANNA ASSISTANT PROSECUTING ATTORNEY-C Unavailable Unavailable ROSE, JAVIER ANNA ASSISTANT PROSECUTING ATTORNEY-C Unavailable Unavailable ROSE, JAVIER ANNA ASSISTANT PROSECUTING ATTORNEY-C Unavailable Unavailable Jose Guerrier MD Unavailable Unavailable [...] Unavailable Unavailable Jose Guerrier MD Unavailable Unavailable Sam BROOKS MD Unavailable Unavailable Sam BROOKS MD Unavailable Unavailable Sam BROOKS MD Unavailable Unavailable Sam BROOKS MD Unavailable Unavailable Sam BROOKS MD Unavailable Unavailable Sam BROOKS MD Unavailable Unavailable Sam BROOKS MD Unavailable Unavailable Sam BROOKS MD Unavailable Unavailable Sam BROOKS MD Unavailable Unavailable Sam BROOKS MD Unavailable Unavailable Sam BROOKS MD Unavailable Unavailable Sam BROOKS MD Unavailable Unavailable TODDSam LEUNG MD Unavailable Unavailable Sam BROOKS MD Unavailable Unavailable Sam BROOKS MD Unavailable Unavailable Sam BROOKS MD Unavailable Unavailable Sam BROOKS MD Unavailable Unavailable Sam BROOKS MD Unavailable Unavailable Sam BROOKS MD Unavailable Unavailable Sam BROOKS MD Unavailable Unavailable Sam BROOKS MD Unavailable Unavailable Sam BROOKS MD Unavailable Unavailable Sam BROOKS MD Unavailable Unavailable Sam BROOKS MD Unavailable Unavailable Sam BROOKS MD Unavailable Unavailable Sam BROOKS MD Unavailable Unavailable Sam BROOKS MD Unavailable Unavailable Sam BROOKS MD Unavailable Unavailable Sam BROOKS MD Unavailable Unavailable Sam BROOKS MD Unavailable Unavailable Sam BROOKS MD Unavailable Unavailable Sam BROOKS MD Unavailable Unavailable Sam BROOKS MD Unavailable Unavailable Sam BROOKS MD Unavailable Unavailable Sam BROOKS MD Unavailable Unavailable Sam BROOKS MD Unavailable Unavailable Sam BROOKS MD Unavailable Unavailable Sam BROOKS MD Unavailable Unavailable Sam BROOKS MD Unavailable Unavailable Sam BROOKS MD Unavailable Unavailable Sam BROOKS MD Unavailable Unavailable Sam BROOKS MD Unavailable Unavailable Sam BROOKS MD Unavailable Unavailable Sam BROOKS MD Unavailable Unavailable Sam BROOKS MD Unavailable Unavailable Sam BROOKS MD Unavailable Unavailable Sam BROOKS MD Unavailable Unavailable Sam BROOKS MD Unavailable Unavailable Sam BROOKS MD Unavailable Unavailable Sam BROOKS MD Unavailable Unavailable Sam BROOKS MD Unavailable Unavailable Sam BROOKS MD Unavailable Unavailable Sam BROOKS MD Unavailable Unavailable Sam BROOKS MD Unavailable Unavailable Sam BROOKS MD Unavailable Unavailable Sam BROOKS MD Unavailable Unavailable TODDSam LEUNG MD Unavailable Unavailable Sam BROOKS MD Unavailable Unavailable Sam BROOKS MD Unavailable Unavailable Sam BROOKS MD Unavailable Unavailable Sam BROOKS MD Unavailable Unavailable Sam BROOKS MD Unavailable Unavailable Sam BROOKS MD Unavailable Unavailable Sam BROOKS MD Unavailable Unavailable Sam BROOKS MD Unavailable Unavailable Sam BROOKS MD Unavailable Unavailable Sam BROOKS MD Unavailable Unavailable Sam BROOKS MD Unavailable Unavailable Sam BROOKS MD Unavailable Unavailable Sam BROOKS MD Unavailable Unavailable Sam BROOKS MD Unavailable Unavailable Sam BROOKS MD Unavailable Unavailable Sam BROOKS MD Unavailable Unavailable Sam BROOKS MD Unavailable Unavailable Sam BROOKS MD Unavailable Unavailable Sam BROOKS MD Unavailable Unavailable Sam BROOKS MD Unavailable Unavailable Sam BROOKS MD Unavailable Unavailable Sam BROOKS MD Unavailable Unavailable Sam BROOKS MD Unavailable Unavailable Sam BROOKS MD Unavailable Unavailable Sam BROOKS MD Unavailable Unavailable Sam BROOKS MD Unavailable Unavailable Dominik PEREZ MD [...] Unavailable Unavailable Dominik PEREZ MD Unavailable Unavailable Doimnik PEREZ MD Unavailable Unavailable Dominik PEREZ MD [...] Unavailable Obradovic, Vladan Unavailable Unavailable Mikey, Lucy ASSISTANT PROSECUTING ATTORNEY ASSISTANT PROSECUTING ATTORNEY Unavailable Unavailable Mikey, A Lucy ASSISTANT PROSECUTING ATTORNEY Unavailable Unavailable Mikey, A Lucy ASSISTANT PROSECUTING ATTORNEY Unavailable Unavailable Mikey, A Lucy ASSISTANT PROSECUTING ATTORNEY Unavailable Unavailable Mikey, A Lucy ASSISTANT PROSECUTING ATTORNEY Unavailable Unavailable Mikey, A Lucy ASSISTANT PROSECUTING ATTORNEY Unavailable Unavailable Mikey, A Lucy ASSISTANT PROSECUTING ATTORNEY Unavailable Unavailable Mikey, A Lucy ASSISTANT PROSECUTING ATTORNEY Unavailable Unavailable Mikey, A Lucy ASSISTANT PROSECUTING ATTORNEY Unavailable Unavailable Mikey, A Lucy ASSISTANT PROSECUTING ATTORNEY Unavailable Unavailable Mikey, A Lucy ASSISTANT PROSECUTING ATTORNEY Unavailable Unavailable Mikey, A Lucy ASSISTANT PROSECUTING ATTORNEY Unavailable Unavailable Mikey, A Lucy ASSISTANT PROSECUTING ATTORNEY Unavailable Unavailable Mikey, A Lucy ASSISTANT PROSECUTING ATTORNEY Unavailable Unavailable Mikey, A Lucy ASSISTANT PROSECUTING ATTORNEY Unavailable Unavailable Mikey, A Lucy ASSISTANT PROSECUTING ATTORNEY Unavailable Unavailable Mikey, A Lucy ASSISTANT PROSECUTING ATTORNEY Unavailable Unavailable Mikey, A Lucy ASSISTANT PROSECUTING ATTORNEY Unavailable Unavailable Mikey, A Lucy ASSISTANT PROSECUTING ATTORNEY Unavailable Unavailable Mikey, A Lucy ASSISTANT PROSECUTING ATTORNEY Unavailable Unavailable Mikey, A Lucy ASSISTANT PROSECUTING ATTORNEY Unavailable Unavailable Mikey, A Lucy ASSISTANT PROSECUTING ATTORNEY Unavailable Unavailable Mikey, A Lucy ASSISTANT PROSECUTING ATTORNEY Unavailable Unavailable Mikey, A Lucy ASSISTANT PROSECUTING ATTORNEY Unavailable Unavailable Mikey, A Lucy ASSISTANT PROSECUTING ATTORNEY Unavailable Unavailable Mikey, A Lucy ASSISTANT PROSECUTING ATTORNEY Unavailable Unavailable Mikey, A Lucy ASSISTANT PROSECUTING ATTORNEY Unavailable Unavailable Mikey, A Lucy ASSISTANT PROSECUTING ATTORNEY Unavailable Unavailable Mikey, A Lucy ASSISTANT PROSECUTING ATTORNEY Unavailable Unavailable Re-disclosure Warning The records that [...] is protected by Article 27-F of the [facility] Public Health law. If you continue you may have access to information: Regarding HIV / AIDS; Provided by facilities licensed or operated by the [facility] Office of Mental Health; or Provided by the [facility] Office for People With Developmental Disabilities. If such information is present, then the following [facility] mandated warning applies: This information has been [...] law may result in a fine or longterm sentence or both. A general authorization for the release of medical or other information is NOT sufficient authorization for further disc losure. Allergies and Adverse Reactions Type Description Substance Reaction Status Data Source(s ) Soma Soma Soma active NETSMART ([facility]) Drug Class NO KNOWN ALLERGIES NO KNOWN ALLERGIES [facility] DRUG INGREDI CARISOPRODOL CARISOPRODOL [facility] Propensity to adverse reactions CARISOPRODOL Carisoprodol Hives High Facial Swelling High Active [facility] High High Encounters Encounter Providers Location Date Indications Data Source(s ) John Martinez MD: [address] [place] [phone], Ph. Attender: John Martinez MD [facility] 08/06/2020 12:00:00 AM EST [facility] ([facility]) John Martinez MD: [address] [place] [phone], Ph. Attender: John Martinez MD [facility] 07/19/2020 12:00:00 AM EST [facility] ([facility]) John Martinez MD: [address] [place] [phone], Ph. Attender: John Martinez MD [facility] 07/19/2020 12:00:00 AM EST [facility] ([facility]) Outpatient [address] [place] [address]-Mobile Integration Team 07/18/2020 12:00:00 AM EST [facility] ([facility]) Patient admitted. John Martinez MD: [address] [place] [phone], Ph. Attender: John Martinez MD [facility] 06/20/2020 12:00:00 AM EDT [facility] ([facility]) John Martinez MD: [address] [place] [phone], Ph. Attender: John Martinez MD [facility] 06/20/2020 12:00:00 AM EDT [facility] ([facility]) John Martinez MD: [address] [place] [phone], Ph. Attender: John Martinez MD [facility] 06/20/2020 12:00:00 AM EDT [facility] ([facility]) Outpatient Attender: DAKOTAH SAMUELS 06/19/2020 03:20:00 P M EDT [facility] Outpatient Attender: DAKOTAH CLAIRE FP 05/21/2020 08:17:00 A M EDT [facility] Outpatient Attender: DAKOTAH CLAIRE FP 05/19/2020 04:18:01 P M EDT [facility] Outpatient Attender: Lucy CLAIRE FP 05/19/2020 04:1 8:01 PM EDT [facility] Outpatient Attender: ANNA ROSE [place]/Nuria/Jim/Taye miller 05/14/2020 01:15:00 PM EDT [facility] ([facility] Outpatient Attender: Lucy CLAIRE FP 05/13/2020 11:5 8:02 AM EDT [facility] Outpatient Attender: DAKOTAH CLAIRE FP 05/08/2020 12:28:01 P M EDT [facility] Outpatient Attender: DAKOTAH CLAIRE FP 03/14/2020 09:12:00 A M EDT [facility] Outpatient Attender: DAKOTAH MCCORMACKP FP 03/12/2020 02:37:00 P M EDT [facility] Outpatient Attender: DAKOTAH CLAIRE FP 03/08/2020 09:07:02 A M EDT [facility] Outpatient Attender: DAKOTAH CLAIRE FP 02/21/2020 03:28:08 P M EDT [facility] Outpatient Attender: DAKOTAH CLAIRE FP 02/16/2020 09:04:01 A M EDT [facility] Outpatient Attender: Lucy CLAIRE FP 02/15/2020 09:5 7:00 AM EDT [facility] Outpatient Attender: DAKOTAH MCCORMACKP FP 02/15/2020 08:36:01 A M EDT [facility] Outpatient Attender: DAKOTAH CLAIRE FP 02/15/2020 07:50:[address] [facility] Outpatient Attender: Lucy CLAIRE FP 02/08/2020 10:1 0:01 AM EDT [facility] Outpatient Attender: Lucy CLAIRE FP 02/08/2020 08:5 4:03 AM EDT [facility] Outpatient Attender: DAKOTAH CLAIRE FP 02/08/2020 08:54:02 A M EDT [facility] Outpatient Referrer: DYANA STEPHENS MD 02/08/2020 05:55:00 AM EDT [facility] Outpatient Attender: DAKOTAH CLAIRE FP 02/07/2020 08:20:01 A M EDT [facility] Outpatient Attender: DAKOTAH SAMUELS 02/06/2020 01:48:01 P M EDT [facility] Outpatient Attender: DAKOTAH SAMUELS 02/05/2020 02:36:00 P M EDT [facility] Outpatient Attender: Lucy SAMUELS 02/05/2020 02:3 5:01 PM EDT [facility] Outpatient Attender: DAKOTAH SAMUELS 02/02/2020 02:43:00 P M EDT [facility] Outpatient Attender: Lucy SAMUELS 01/31/2020 07:2 3:02 AM EDT [facility] 01/30/2020 01:00:00 AM EDT - 020 09:21:39 AM EDT [facility]) Outpatient Attender: Lucy SAMUELS 01/28/2020 10:1 0:01 PM EDT [facility] Outpatient Attender: Lucy SAMUELS 01/25/2020 11:4 1:03 AM EDT [facility] Inpatient Attender: HARLEY Bro er: WANDA FRY MDAttender: MAYCO AMEZCUAAdmitter: HARLEY TORRESReferrer: WANDA FRY MDConsultant: DYANA PEREZ MD [id number] 01/23/2020 12:00:00 AM EDT - 01/27/2020 04:57:00 PM EDT Other pulmonary embolism without acute cor pulmonale [facility] Other pulmonary embolism without acute c or pulmonale Patient discharged. Outpatient Attender: DAKOTAH SAMUELS 01/18/2020 11:38:00 A M EDT [facility] Outpatient Attender: Lucy SAMUELS 01/15/2020 03:1 9:01 PM EDT [facility] Outpatient Attender: DAKOTAH SAMUELS 01/15/2020 01:41:00 P M EDT [facility] Outpatient Attender: DAKOTAH SAMUELS 01/08/2020 02:48:01 P [facility] Outpatient Attender: ORTEGA BROOKS MD 01/08/2020 09:47:02 A [facility] Outpatient Attender: ORTEGA BROOKS MD 12/20/2019 01:05:00 P [facility] Outpatient Attender: ORTEGA BROOKS MD 11/27/2019 11:35:01 A [facility] Outpatient Attender: ORTEGA BROOKS MD 11/24/2019 09:49:00 A [facility] Outpatient Attender: ORTEGA BROOKS MD 11/22/2019 08:01:01 A [facility] Outpatient Attender: ORTEGA BROOKS MD 11/21/2019 10:27:01 A [facility] Outpatient Attender: ORTEGA BROOKS MD 11/20/2019 01:04:00 P [facility] Outpatient Attender: ORTEGA BROOKS MD 11/16/2019 01:46:00 P [facility] Outpatient Attender: ORTEGA RBOOKS MD 11/10/2019 09:22:01 A [facility] Outpatient Attender: ORTEGA BROOKS MD 11/10/2019 09:18:03 A [facility] Outpatient Attender: ORTEGA BROOKS MD 11/10/2019 09:18:02 A [facility] Outpatient Attender: ORTEGA BROOKS MD 11/10/2019 09:18:02 A [facility] Outpatient Attender: ORTEGA BROOKS MD 11/10/2019 08:42:00 A [facility] Outpatient Attender: ORTEGA BROOKS MD 11/09/2019 11:20:58 A [facility] Outpatient Attender: ORTEGA BROOKS MD 10/31/2019 12:38:02 P [facility] Outpatient Attender: ORTEGA BROOKS MD 10/31/2019 09:48:01 A [facility] Inpatient Attender: Tracey TalaveraAdmitter: Tracey stack [id number] 10/31/2019 09:29:47 AM EST [facility] Outpatient Attender: ORTEGA BROOKS MD 10/31/2019 07:39:01 A [facility] Outpatient Attender: ORTEGA BROOKS MD 10/31/2019 07:38:01 A [facility] Outpatient Attender: ORTEGA BROOKS MD FP 10/30/2019 01:42:01 P [facility] Outpatient Attender: ORTEGA BROOKS MD 10/25/2019 07:55:01 A [facility] Outpatient Attender: ORTEGA BROOKS MD 10/20/2019 04:30:00 P [facility] Outpatient Attender: ORTEGA BROOKS MD 10/20/2019 04:29:00 P [facility] Outpatient Attender: ORTEGA BROOKS MD 10/20/2019 04:28:00 P [facility] Outpatient Attender: ORTEGA BROOKS MD 10/20/2019 01:56:01 P [facility] Outpatient Attender: ORTEGA BROOKS MD 10/20/2019 12:54:01 P [facility] Outpatient Attender: ORTEGA BROOKS MD 10/20/2019 12:42:00 P [facility] Outpatient Attender: ORTEGA BROOKS MD 10/20/2019 12:41:00 P [facility] Outpatient Attender: ORTEGA BROOKS MD 10/20/2019 12:40:00 P [facility] Outpatient Attender: ORTEGA BROOKS MD 10/20/2019 12:39:01 P [facility] Outpatient Attender: Himanshu Guerrier MDAdmitter: Himanshu Guerrier MD E [id number] 10/06/2019 02:08:17 PM [facility] 11/06/2019 01:34:00 PM [facility] Patient discharged. Outpatient Attender: ORTEGA BROOKS MD 09/25/2019 03:29:03 P [facility] Outpatient Attender: ORTEGA BROOKS MD 09/24/2019 10:08:59 A [facility] Outpatient Attender: ORTEGA BROOKS MD 09/20/2019 02:46:02 P [facility] Outpatient Attender: ORTEGA SAMUELS 08/24/2019 08:35:00 A [facility] Medications Medication Brand Name Start Date Product Form Dose Route Admi nistrative Instructions Pharmacy Instructions Status Indications Reaction Description Data Source(s) 20 mg 10/16/2020 12:00:00 AM EST tablet 30 TAKE ONE TABLET BY MOUTH EVERY DAY TAKE ONE TABLET BY MOUTH EVERY DAY SOLD: 10/17/2020 [facility] 90 mcg/actuation 10/16/2020 12:00:00 AM EST HFA aerosol inha ler 8 USE 2 PUFFS BY MOUTH EVERY 4 TO 6 HOURS NEEDED FOR WHEEZING USE 2 PUFFS BY MOUTH EVERY 4 TO 6 HOURS NEEDED FOR WHEEZING SOLD: 10/17/2020 [facility] 7.5-325 mg 10/04/2020 12:00:00 AM EST tablet [...] MAXIMUM DAILY DOSE = 4 SOLD: 09/17/2020 [facility] 7.5-325 mg 08/26/2020 12:00:00 AM EST [...] CPAP 06/04/2020 12:00:00 AM EDT active MED[facility] ([facility], ) Levothyroxine Levothyroxine 02/20/2020 01:00:00 AM EDT 0 {mcg} completed [facility]SM[facility] ([facility]) Nicotine Mini 2 MG Nicotine Mini 02/20/2020 01:00:00 AM EDT 0 {a sd} completed [facility] ([facility]) Tylenol Tylenol 02/20/2020 01:00:00 AM EDT 0 {mg} compl eted NETSMART ([facility]) Eliquis 5 MG Eliquis 02/20/2020 01:00:00 AM EDT co mpleted [facility] ([facility]) 5 mg 02/15/2020 12:00:00 AM EDT [...] After finishing the 10mg loading dose course. [facility] 2 mg 02/06/2020 12:00:00 AM EDT [...] After finishing the 10mg loading dose course. [facility] Lortab 5-325 MG Lortab 01/30/2020 01:00:00 AM EDT completed [facility] ([facility]) Omeprazole 40 MG Omeprazole 01/30/2020 01:00:00 AM EDT completed [facility] ([facility] ) Colace Colace 01/30/2020 01:00:00 AM EDT 100.0 {mg} com pleted [facility]SMART ([facility]) Eliquis 5 MG Eliquis 01/30/2020 01:00:00 AM EDT co mpleted [facility] [facility]) apixaban 5 MG Oral Tablet apixaban (ELIQUIS) tablet 10 mg apixaban (ELIQUIS) tablet 10 mg 01/27/2020 09:00:00 PM EDT 10 mg Oral activ e 10 mg, Oral, 2 Times Daily, First dose on 01/27/20 at 2100, For 7 days [facility] Medication administered onsite Acetaminophen 325 MG [...] mg from all sources in 24 hours.
[facility] Medication administered onsite apixaban 5 MG Oral Tablet apixaban (ELIQUIS) tablet 10 mg apixaban (ELIQUIS) tablet 10 mg 01/27/2020 12:00:00 PM EDT 10 mg Oral compl eted 10 mg, Oral, Once, 01/27/20 at 1200, For 1 dose [facility] Medication administered onsite apixaban 5 MG Oral Tablet Apixaban 5 MG Oral Tablet (E liquis) Apixaban 5 MG Oral Tablet (Eliquis) 01/27/2020 12:00:00 AM EDT 5 mg Oral a borted Take 1 tablet by mouth Two Times Daily [facility] apixaban 5 MG Oral Tablet Apixaban 5 MG Oral Tablet (E liquis) Apixaban 5 MG Oral Tablet (Eliquis) 01/27/2020 12:00:00 AM EDT 5 mg Oral a borted Take 1 tablet by mouth Two Times Daily After finishing the 10mg loading dose course. [facility] apixaban 5 MG Oral Tablet Apixaban 5 MG Oral Tablet (E LIQUIS) Apixaban 5 MG Oral Tablet (ELIQUIS) 01/27/2020 12:00:00 AM EDT 10 mg Oral a borted Take 2 tablets by mouth Two Times Daily for 7 days [facility] Acetaminophen 325 MG / Hydrocodone Smith trate 5 MG Oral Tablet HYDROcodone- Acetaminophen 5-325 MG Oral Tablet (LORTAB) HYDROcodone-Acetaminophen 5-325 MG Oral Tablet (LORTAB) 01/27/2020 12:00:00 AM EDT 1 {tbl} Oral active Take 1 tablet by mouth every 6 (six) hours as needed for up to 3 days, Max Daily Dose: 4 tablets [facility] apixaban 5 MG Oral Tablet Apixaban 5 MG Oral Tablet (E LIQUIS) Apixaban 5 MG Oral Tablet (ELIQUIS) 01/27/2020 12:00:00 AM EDT 5 mg Oral a borted Take 1 tablet by mouth Two Times Daily [facility] apixaban 5 MG Oral Tablet Apixaban 5 MG Oral Tablet (E LIQUIS) Apixaban 5 MG Oral Tablet (ELIQUIS) 01/27/2020 12:00:00 AM EDT 5 mg Oral a borted Take 1 tablet by mouth Two Times Daily [facility] Acetaminophen 325 MG / Hydrocodone Smith trate 5 MG Oral Tablet HYDROcodone- Acetaminophen 5-325 MG Oral Tablet (LORTAB) HYDROcodone-Acetaminophen 5-325 MG Oral Tablet (LORTAB) 01/27/2020 12:00:00 AM EDT 1 {tbl} Oral aborted Take 1 tablet by mouth every 6 (six) hours as needed for up to 3 days, Max Daily Dose: 4 tablets [facility] apixaban 5 MG Oral Tablet Apixaban 5 MG Oral Tablet (E LIQUIS) Apixaban 5 MG Oral Tablet (ELIQUIS) 01/27/2020 12:00:00 AM EDT 5 mg Oral a ctive Take 1 tablet by mouth Two Times Daily [facility] apixaban 5 MG Oral Tablet Apixaban 5 MG Oral Tablet (E LIQUIS) Apixaban 5 MG Oral Tablet (ELIQUIS) 01/27/2020 12:00:00 AM EDT 5 mg Oral a borted Take 1 tablet by mouth Two Times Daily [facility] 1 ML heparin sodium, porcine 1000 UNT/ML Injection heparin (porcine) 1000 units/mL injection 5,200 Units heparin (porcine) 1000 units/mL injectio n 5,200 Units 01/26/2020 12:15:00 PM EDT 5200 U Intravenous comple charmaine 5,200 Units, Intravenous, Once, Wed01/26/20 at 1215, For 1 dose
Adult High Dose / With Bolus Protocol.
[facility] Medication administered onsite sodium chloride 0.9 % bolus 1,000 mL 6990-1063-33 01/26/2020 12:15: 00 AM EDT 1000 mL Intravenous completed 1,000 mL , Intravenous, Once, Wed01/26/20 at 0015, For 1 dose [facility] Medication administered onsite 1 ML heparin sodium, porcine 1000 UNT/ML Injection heparin (porcine) 1000 units/mL injection 5,227 Units heparin (porcine) 1000 units/mL injectio n 5,227 Units 01/25/2020 09:30:00 PM EDT 5227 U Intravenous comple charmaine 5,227 Units, Intravenous, Once, Dina 01/25/20 at 2130, For 1 dose
Adult High Dose / With Bolus Protocol.
[facility] Medication administered onsite pantoprazole 40 MG Delayed Release Oral Tablet pantoprazole (PROTONIX) EC tablet 40 mg pantoprazole (PROTONIX) EC tablet 40 mg 01/25/2020 09:00:00 AM E DT 40 mg Oral active 40 mg, Ora l, Daily Standard, First dose on Wed01/25/20 at 0900, For 30 days
Do not crush or chew
[facility] Medication administered onsite sodium chloride 0.9 % bolus 1,000 mL 01/25/2020 06:30: 00 AM EDT 1000 mL Intravenous completed 1,000 mL , Intravenous, Once, Dina 01/25/20 at 0630, For 1 dose [facility] Medication administered onsite sodium chloride 0.9 % bolus 1,000 mL 01/24/2020 10:30: 00 PM EDT 1000 mL Intravenous completed 1,000 mL , Intravenous, Once, Wed01/24/20 at 2230, For 1 dose [facility] Medication administered onsite 1 ML heparin sodium, porcine 1000 UNT/ML Injection heparin (porcine) 1000 units/mL injection 5,300 Units heparin (porcine) 1000 units/mL injectio n 5,300 Units 01/24/2020 10:15:00 PM EDT 5300 U Intravenous comple charmaine 5,300 Units, Intravenous, Once, Wed01/24/20 at 2215, For 1 dose
Adult High Dose / With Bolus Protocol.
[facility] Medication administered onsite NaCl infusion 0.9 % 01/24/2020 04:15:00 PM EDT Intravenous completed at 100 mL/hr, Intrav enous, Continuous, Starting Wed01/24/20 at 1615, For 24 hours [facility] Medication administered onsite 500 ML heparin sodium, porcine 50 UNT/ML Injection heparin in NaCl 0.45 % infusion 50 units/mL heparin in NaCl 0.45 % infusion 50 units/mL 01/24/2020 03:00:00 PM EDT 3450 U/h Intravenous aborted 3,450 Units/hr (69 mL/hr), Intravenous, at 69 mL/hr, Continuous, Starting Wed01/24/20 at 1500, For 30 days
Adult High Dose / With Bolus Protocol.
[facility] Medication administered onsite 1 ML heparin sodium, porcine 1000 UNT/ML Injection heparin (porcine) 1000 units/mL injection 5,275 Units heparin (porcine) 1000 units/mL injectio n 5,275 Units 01/24/2020 02:45:00 PM EDT 5275 U Intravenous comple charmaine 5,275 Units, Intravenous, Once, Wed01/24/20 at 1500, For 1 dose
Adult High Dose / With Bolus Protocol.
[facility] Medication administered onsite Docusate Sodium 100 MG Oral Capsule docusate sodium (C OLACE) capsule 100 mg docusate sodium (COLACE) capsule 100 mg 01/24/2020 09:00:00 AM EDT 100 mg Oral active 100 mg, Oral, 2 Times Daily, First dose on Wed01/24/20 at 0900, For 30 days [facility] Medication administered onsite 1 ML heparin sodium, porcine 1000 UNT/ML Injection heparin (porcine) 1000 units/mL injection 5,295 Units heparin (porcine) 1000 units/mL injectio n 5,295 Units 01/24/2020 06:45:00 AM EDT 5295 U Intravenous comple charmaine 5,295 Units, Intravenous, Once, Wed01/24/20 at 0645, For 1 dose
Adult High Dose / With Bolus Protocol.
[facility] Medication administered onsite calcium gluconate in NaCl 0.9 % infusion 1 g/50 mL [id number] 01/24/2020 02:30:00 AM EDT 1 g Intravenous completed 1 g, Intravenous, Administer over 1 Hours, Once, Wed01/24/20 at 0230, For 1 dose
1 g calcium gluconate = 90 mg elemental Ca++ = 4.5 mEq Ca++. Dosed on mg of calcium gluconate.
[facility] Medication administered onsite Acetaminophen 325 MG Oral Tablet acetaminophen (TYLENO L) tablet 975 mg acetaminophen (TYLENOL) tablet 975 mg 01/23/2020 10:45:00 PM EDT 97 5 mg Oral completed 975 mg, Oral, O nce, 01/23/20 at 2245, For 1 dose
Maximum daily dose of acetaminophen is 3,000 mg from all sources in 24 hours.
[facility] Medication administered onsite 500 ML heparin sodium, porcine 50 UNT/ML Injection heparin in NaCl 0.45 % infusion 50 units/mL heparin in NaCl 0.45 % infusion 50 units/mL 01/23/2020 10:15:00 PM EDT 2150 U/h Intravenous aborted 2,150 Units/hr (43 mL/hr), Intravenous, at 43 mL/hr, Continuous, Starting Wed01/23/20 at 2215, For 30 days [facility] Medication administered onsite 7.5-325 mg 01/15/2020 12:00:00 AM EDT tablet 60 TAKE 1 TABLET BY MOUTH EVERY 6 HOURS NEEDED FOR SEVERE HIP PAIN MAXIMUM DAILY DOSE = 4 TAKE 1 TABLET BY MOUTH EVERY 6 HOURS NEEDED FOR SEVERE HIP PAIN MAXIMUM DAILY DOSE = 4 SOLD: 01/17/2020 [facility] Omeprazole 40 MG Delayed Release Oral Ca psule Omeprazole 40 MG Oral Capsule Delayed Release (PRILOSEC) Omeprazole 40 MG Oral Capsule Delayed Re lease (PRILOSEC) 12/22/2019 12:00:00 AM EDT 1 {capsule} Oral ac tive Take 1 capsule by mouth daily [facility] 5-325 mg 12/21/2019 12:00:00 AM EDT tablet 60 TAKE 1 TABLET BY MOUTH EVERY 4-6 HOURS NEEDED FOR SEVERE PAIN MAXIMUM DAILY DOSE = 2 TAKE 1 TABLET BY MOUTH EVERY 4-6 HOURS NEEDED FOR SEVERE PAIN MAXIMUM DAILY DOSE = 2 SOLD: 12/22/2019 [facility] Acetaminophen 325 MG / Hydrocodone Smith trate 5 MG Oral Tablet HYDROcodone- Acetaminophen 5-325 MG Oral Tablet (LORTAB) HYDROcodone-Acetaminophen 5-325 MG Oral Tablet (LORTAB) 12/21/2019 12:00:00 AM EDT 1 {tbl} Oral aborted Take 1 tablet by mouth as needed [facility] 5-325 mg 11/22/2019 12:00:00 AM EDT tablet 60 TAKE ONE TABLET BY MOUTH EVERY 4 TO 6 HOURS NEEDED FOR SEVERE PAIN, MAXIMUM DAILY DOSE = 2 TAKE ONE TABLET BY MOUTH EVERY 4 TO 6 HOURS NEEDED FOR SEVERE PAIN, MAXIMUM DAILY DOSE = 2 SOLD: 11/22/2019 [facility] 2 mg 11/10/2019 12:00:00 AM EDT [...] completed doxycycline monohydrate 100 MG Oral Capsule [facility] ([facility]) Furosemide 40 MG Oral Tablet furosemide 40 mg tablet furosemide 40 mg tablet completed furosemide 40 MG Oral Tablet [facility] ([facility]) Insurance Providers Payer name Policy type / Coverage type Policy ID Covered constitution party ID Covered constitution party's relationship to delacruz Policy Delacruz Plan Information [employer] MCDO [id number] SP [id number] [facility] O [id number] S [id number] Managed Care - [facility] Community Plan P [id number] S [id number] Medicaid S [id number] S [id number] Managed Care - [facility] Community Plan P [id number] S [id number] [facility] I [id number] Self [id number] [facility] I [id number] Self [id number] Medicaid S [id number] S [id number] [facility] MEDICAID [id number] [facility] MEDICAID [id number] Reyna [id number] Managed Care - [facility] Community Plan P [id number] S [id number] Managed Care - [facility] Community Plan P [id number] S [id number] Managed Care - [facility] Community Plan P [id number] S [id number] Medicaid S [id number] S [id number] [facility] Comm Plan Medicaid F [id number] SELF [id number] Managed Care - Community Plan [facility] P [id number] S [id number] Managed Care - Community Plan [facility] P [id number] S [id number] Self Pay P [id number] S [id number] SELF PAY ONLY UNK SP UNK SELF PAY UNAVAILABLE SP UNAVAILA BLE Problems, Conditions, and Diagnoses Code Display Name Description Problem Type Effective Dates Data Source(s) 22623885 Cigarette smoker Cigarette Smoker Problem 06/20/2020 12 :00:00 AM EDT [facility] ([facility]) [id number] Thromboembolism of vein Thromboembolism of Vein Proble m 06/20/2020 12:00:00 AM EDT [facility] ([facility]) [id number] Morbid obesity Morbid Obesity Problem 06/20/2020 12:00: 00 AM EDT [facility] ([facility]) 99342677 Vitamin D deficiency Vitamin D Deficiency Problem 06/20/2020 12:00:00 AM EDT [place] ([facility]) [id number] Cigarette smoker Cigarette Smoker Problem 06/20/2020 12 :00:00 AM EDT [facility] ([facility]) [id number] Thromboembolism of vein Thromboembolism of Vein Proble m 06/20/2020 12:00:00 AM EDT [facility] ([facility]) 792537909 Morbid obesity Morbid Obesity Problem 06/20/2020 12:00: 00 AM EDT [facility] ([facility]) [id number] Vitamin D deficiency Vitamin D Deficiency Problem 06/20/2020 12:00:00 AM EDT [place] ([facility]) 03315404 Cigarette smoker Cigarette Smoker Problem 06/20/2020 12 :00:00 AM EDT [facility] ([facility]) 946822631 Thromboembolism of vein Thromboembolism of Vein Proble m 06/20/2020 12:00:00 AM EDT [place] ([facility]) 390704915 Morbid obesity Morbid Obesity Problem 06/20/2020 12:00: 00 AM EDT [facility] ([facility]) 34094393 Vitamin D deficiency Vitamin D Deficiency Problem 06/20/2020 12:00:00 AM EDT [place] ([facility]) M16.11 Unilateral primary osteoarthritis, right hip Unilateral primary osteoarthritis, right hip 02/21/2020 03:26:37 PM EDT [facility] [id number] Idiopathic osteoarthritis Idiopathic Osteoarthritis Pr oblem 02/20/2020 12:00:00 AM EDT [facility] ([facility]) 084683013 Idiopathic osteoarthritis Idiopathic Osteoarthritis Pr oblem 02/20/2020 12:00:00 AM EDT [facility] ([facility]) 208816104 Idiopathic osteoarthritis Idiopathic Osteoarthritis Pr oblem 02/20/2020 12:00:00 AM EDT [place] ([facility]) V70.0 Encounter for general adult medical exam ination with abnormal findings Encounter for general adult medical examination with abnormal findings 02/15/2020 08:34:39 AM EDT [facility] [id number] Other specified hypothyroidism Other specified hypothy roidism 02/15/2020 08:34:39 AM EDT [facility] V85.43 BMI 50.0-59.9 BMI 50.0-59.9 02/15/2020 08:34:39 AM EDT [facility] [id number] Procedure by method Procedure by Method Problem 0 02/15/2020 12:00:00 AM EDT [facility] ([facility]) 071610263 Body mass index 30+ - obesity Body Mass Index 30+ - Ob esity Problem 02/15/2020 12:00:00 AM EDT [facility] ([facility]) 49703042 Hypothyroidism Hypothyroidism Problem 02/15/2020 12:00: 00 AM EDT [facility] ([facility]) [id number] Procedure by method Procedure by Method Problem 0 02/15/2020 12:00:00 AM EDT [facility] ([facility]) 800431675 Body mass index 30+ - obesity Body Mass Index 30+ - Ob esity Problem 02/15/2020 12:00:00 AM EDT [facility] ([facility]) 94994401 Hypothyroidism Hypothyroidism Problem 02/15/2020 12:00: 00 AM EDT [facility] ([facility]) 724405843 Procedure by method Procedure by Method Problem 0 02/15/2020 12:00:00 AM EDT [facility] ([facility]) 481560863 Body mass index 30+ - obesity Body Mass Index 30+ - Ob esity Problem 02/15/2020 12:00:00 AM EDT [facility] ([facility]) 19645336 Hypothyroidism Hypothyroidism Problem 02/15/2020 12:00: 00 AM EDT [facility] ([facility]) 327.23 Obstructive sleep apnea syndrome 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 sleep house repairer ea syndrome 02/05/2020 02:34:23 PM EDT [facility] I26.09 Other pulmonary embolism with acute cor pulmonale Other pulmonary embolism with acute cor pulmonale 02/05/2020 02:34:23 PM EDT [facility] [id number] Acute cor pulmonale Acute Cor Pulmonale Problem 0 02/05/2020 12:00:00 AM EDT [place] ([facility]) 16093969 Obstructive sleep apnea syndrome Obstructive Sle ep Apnea Syndrome Problem 02/05/2020 12:00:00 AM EDT [place] ([facility]) 56181007 Acute cor pulmonale Acute Cor Pulmonale Problem 0 02/05/2020 12:00:00 AM EDT [facility] ([facility]) 48249641 Obstructive sleep apnea syndrome Obstructive Sle ep Apnea Syndrome Problem 02/05/2020 12:00:00 AM EDT [facility] ([facility]) 08876351 Acute cor pulmonale Acute Cor Pulmonale Problem 0 02/05/2020 12:00:00 AM EDT [facility] ([facility]) 66918222 Obstructive sleep apnea syndrome Obstructive Sle ep Apnea Syndrome Problem 02/05/2020 12:00:00 AM EDT [facility] ([facility]) I82.412 Acute embolism and thrombosis of left fe moral vein Acute embolism and thrombosis of left femoral vein Problem 01/29/2020 01:00:00 AM EDT N [facility] ([facility]) I82.432 Acute embolism and thrombosis of left po pliteal vein Acute embolism and thrombosis of left popliteal vein Problem 01/29/2020 01:00:00 AM EDT [facility] ([facility]) E66.01 Morbid (severe) obesity due to excess ca lories Morbid (severe) obesity due to excess calories Problem 01/29/2020 01:00:00 AM EDT [facility] ( [facility]) G47.33 Obstructive sleep apnea (adult) (pediatr ic) Obstructive sleep apnea (adult) (pediatric) Problem 01/29/2020 01:00:00 AM EDT [facility] ([facility]) M16.0 Bilateral primary osteoarthritis of hip Bilateral primary osteoarthritis of hip Problem 01/29/2020 01:00:00 AM EDT [facility] ([facility]) G89.29 Other chronic pain Other chronic pain Problem 0 01:00:00 AM EDT [facility] ([facility]) F17.210 Nicotine dependence, cigarettes, uncompl icated Nicotine dependence, cigarettes, uncomplicated Problem 01/29/2020 01:00:00 AM EDT [facility]SMAR T ([facility]) 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 Problem 01/29/2020 01:00:00 AM EDT [facility] ([facility]) Z91.81 History of falling History of falling Problem 0 01:00:00 AM EDT [facility] ([facility]) Z68.44 Body mass index (BMI) 60.0-69.9, adult B pravin mass index (BMI) 60.0-69.9, adult Problem 01/29/2020 01:00:00 AM EDT NETSARETHAT ([facility]) Z60.2 Problems related to living alone Problems related to l iving alone Problem 01/29/2020 01:00:00 AM [facility] I26.09 Other pulmonary embolism with acute cor pulmonale Other pulmonary embolism with acute cor pulmonale Problem 01/29/2020 01:00:00 AM ED[facility] I27.82 Chronic pulmonary embolism Chronic pulmonary embolism Problem 01/29/2020 01:00:00 AM EDT [facility] ) 719.07 Ankle edema Ankle edema 11/10/2019 09:17:31 AM EDT [facility] V15.82 Ex-smoker Ex-smoker 11/10/2019 09:17:31 AM ED T [facility] [id number] Clinical finding Clinical Finding Problem 11/10/2019 12 :00:00 AM EDT [facility]) [id number] Localized edema Localized Edema Problem 11/10/2019 12:0 0:00 AM EDT [facility]) [id number] Clinical finding Clinical Finding Problem 11/10/2019 12 :00:00 AM EDT [facility]) 220229347 Localized edema Localized Edema Problem 11/10/2019 12:0 0:00 AM EDT [facility]) [id number] Clinical finding Clinical Finding Problem 11/10/2019 12 :00:00 AM EDT [facility]) 312562734 Localized edema Localized Edema Problem 11/10/2019 12:0 0:00 AM EDT [facility]) F43.20 Adjustment disorder, unspecified Adjustment diso rders, Unspecified Diagnosis 07/18/2020 12:00:00 AM EST [facility] ([facility]) F50.9 Eating disorder, unspecified Unspecified feeding or eating disorder Diagnosis 07/18/2020 12:00:00 AM EST [facility] ([facility]) I26.94 Multiple subsegmental pulmonary emboli w ithout acute cor pulmonale Multiple subsegmental pulmonary emboli without acute cor pulmonale Diagnosis 01/24/2020 05:37:49 PM EDT [facility] I26.99 Other pulmonary embolism without acute c or pulmonale Other pulmonary embolism without acute cor pulmonale Diagnosis 01/24/2020 05:37:49 PM EDT [facility] Z68.44 Body mass index (BMI) 60.0-69.9, adult B pravin mass index (bmi) 60.0-69.9, adult Diagnosis 01/24/2020 05:34:15 PM EDT [facility] E66.01 Morbid (severe) obesity due to excess ca lories Morbid (severe) obesity due to excess calories Diagnosis 01/24/2020 05:34:15 PM EDT [facility] LLE DVT LLE DVT Diagnosis 01/23/2020 09:52:49 PM ED [facility] Multiple PE's Multiple PE's Diagnosis 01/23/2020 09:52:49 PM EDT [facility] E66.01 Morbid (severe) obesity due to excess ca lories Morbid (severe) obesity due to excess ca Diagnosis 11/06/2019 07:26:38 AM EDT [facility] K21.9 Gastro-esophageal reflux disease without esophagitis Gastro-esophageal reflux disease without Diagnosis 11/06/2019 07:25:[address] [facility] Surgeries/Procedures Procedure Description Date Indications Data Source(s) ANTI-XA UNFRACTIONATED HEPARIN LEVEL ANTI-XA UNFRACTIONATED HEPARIN LEVEL Routine 01/27/2020 5:29 AM EDT 01/27/2020 09:29:00 AM [facility] PROBNP PROBNP Routine 01/27/2020 5:29 AM EDT 01/27/20 20 09:29:00 AM [facility] PROTHROMBIN TIME PROTIME INR Routine 01/27/2020 5:29 AM EDT 01/27/2020 09:29:00 AM [facility] BLOOD COUNT COMPLETE AUTOMATED CBC Routine 01/27/2020 5:29 A M EDT 01/27/2020 09:29:00 AM [facility] BASIC METABOLIC PANEL CALCIUM TOTAL BASIC METABOLIC PANEL Routi ne 01/27/2020 5:29 AM EDT 01/27/2020 09:29:00 AM EDT [facility] HEPARIN ASSAY ANTI-XA UNFRACTIONATED HEPARIN LEVEL Routine 01/26/2020 10:50 PM EDT 01/27/2020 02:50:00 AM EDT [facility] HEPARIN ASSAY ANTI-XA UNFRACTIONATED HEPARIN LEVEL Routine 01/26/2020 5:22 PM EDT 01/26/2020 09:22:00 PM EDT [facility] HEPARIN ASSAY ANTI-XA UNFRACTIONATED HEPARIN LEVEL Routine 01/26/2020 11:07 AM EDT 01/26/2020 03:07:00 PM EDT [facility] HEPARIN ASSAY ANTI-XA UNFRACTIONATED HEPARIN LEVEL Routine 01/26/2020 3:21 AM EDT 01/26/2020 07:21:00 AM EDT [facility] PROTHROMBIN TIME PROTIME INR Routine 01/26/2020 3:21 AM EDT 01/26/2020 07:21:00 AM [facility] BLOOD COUNT COMPLETE AUTOMATED CBC Routine 01/26/2020 3:21 A M EDT 01/26/2020 07:21:00 AM [facility] BASIC METABOLIC PANEL CALCIUM TOTAL BASIC METABOLIC PANEL Routi ne 01/26/2020 3:21 AM EDT 01/26/2020 07:21:00 AM EDT [facility] HEPARIN ASSAY ANTI-XA UNFRACTIONATED HEPARIN LEVEL Routine 01/25/2020 8:01 PM EDT 01/26/2020 12:01:00 AM EDT [facility] HEPARIN ASSAY ANTI-XA UNFRACTIONATED HEPARIN LEVEL Routine 01/25/2020 11:59 AM EDT 01/25/2020 03:59:00 PM EDT [facility] HEPARIN ASSAY ANTI-XA UNFRACTIONATED HEPARIN LEVEL Routine 01/25/2020 4:59 AM EDT 01/25/2020 08:59:00 AM EDT [facility] NATRIURETIC PEPTIDE PROBNP Routine 01/25/2020 4:59 AM EDT 01/25/2020 08:59:00 AM [facility] PROTHROMBIN TIME PROTIME INR Routine 01/25/2020 4:59 AM EDT 01/25/2020 08:59:00 AM [facility] BLOOD COUNT COMPLETE AUTOMATED CBC Routine 01/25/2020 4:59 A M EDT 01/25/2020 08:59:00 AM [facility] BASIC METABOLIC PANEL CALCIUM TOTAL BASIC METABOLIC PANEL Routi ne 01/25/2020 4:59 AM EDT 01/25/2020 08:59:00 AM EDT [facility] HEPARIN ASSAY ANTI-XA UNFRACTIONATED HEPARIN LEVEL Routine 01/24/2020 9:10 PM EDT [facility]/25[facility]2020 [facility] Rout[facility] 01/24/2020 9:10 PM EDT 01/25/2020 01:10:00 AM [facility] BLOOD COUNT COMPLETE AUTOMATED CBC Timed 01/24/2020 9:10 P M EDT 01/25/2020 01:10:00 AM [facility] HEPARIN ASSAY ANTI-XA UNFRACTIONATED HEPARIN LEVEL Routine 01/24/2020 1:36 PM EDT 01/24/2020 05:36:00 PM EDT [facility] ECHO TTHRC R-T 2D W/WOM-MODE COMPL SPEC&COLR DOP ECHOCARDIO GRAM 2D COMPLETE Routine 01/24/2020 9:31 AM EDT 01/24/2020 01:31:23 PM [facility] HEPARIN ASSAY ANTI-XA UNFRACTIONATED HEPARIN LEVEL Routine 01/24/2020 5:46 AM EDT 01/24/2020 09:46:00 AM EDT [facility] BLOOD COUNT COMPLETE AUTO&AUTO DIFRNTL WBC COUNT CBC AND DIFFER ENTIAL Routine 01/24/2020 5:46 AM EDT 01/24/2020 09:46:00 AM [facility] TROPONIN QUANTITATIVE TROPONIN T Routine 01/24/2020 5:46 AM EDT 01/24/2020 09:46:00 AM [facility] PHOSPHORUS INORGANIC PHOSPHORUS LEVEL Routine 01/24/2020 5:46 AM E DT 01/24/2020 09:46:00 AM [facility] MAGNESIUM MAGNESIUM LEVEL Routine 01/24/2020 5:46 AM EDT 01/24/2020 09:46:00 AM [facility] COMPREHENSIVE METABOLIC PANEL COMPREHENSIVE METABOLIC PANEL Rou lisa 01/24/2020 5:46 AM EDT 01/24/2020 09:46:00 AM EDT [facility] UH COVID-19 PCR UH COVID-19 PCR STAT 01/23/2020 10:41 PM EDT 01/24/2020 02:41:00 AM [facility] BLOOD COUNT COMPLETE AUTO&AUTO DIFRNTL WBC COUNT CBC AND DIFFER ENTIAL Routine 01/23/2020 10:31 PM EDT 01/24/2020 02:31:00 AM EDT [facility] TROPONIN QUANTITATIVE POCT ISTAT TROPONIN Routine 01/23/2020 10:12 PM EDT 01/24/2020 02:12:00 AM EDT [facility] HEPARIN ASSAY ANTI-XA UNFRACTIONATED HEPARIN LEVEL Routine 01/23/2020 10:09 PM EDT 01/24/2020 02:09:00 AM EDT [facility] BLOOD COUNT COMPLETE AUTO&AUTO DIFRNTL WBC COUNT CBC AND DIFFER ENTIAL Routine 01/23/2020 10:09 PM EDT 01/24/2020 02:09:00 AM EDT [facility] BASIC METABOLIC PANEL CALCIUM TOTAL BASIC METABOLIC PANEL Routi ne 01/23/2020 10:09 PM EDT 01/24/2020 02:09:00 AM EDT [facility] EKG 12-LEAD - CMAXX REPORT EKG 12-LEAD - CMAXX REPORT 01/23/2020 10:08 PM EDT 01/24/2020 02:08:39 AM EDT [facility] EKG 12-LEAD - CMAXX REPORT EKG 12-LEAD - CMAXX REPORT 01/23/2020 10:08 PM EDT 01/24/2020 02:08:39 AM EDT [facility] EKG 12-LEAD EKG 12-LEAD STAT 01/23/2020 10:08 PM EDT 01/24/2020 02:08:39 AM EDT [facility] UPPER NDSC BIOPSY SINGLE/MULTIPLE 11/06/2019 12:00:00 AM EDT [facility] ([facility]) Results ID Date Data Source [id number] 10/16/2020 03:56:00 AM EST [facility] Name Value Range Interpretation Code Description Data Savi rce(s) Supporting Document(s) SARS coronavirus 2 RNA [Presence] in Res piratory specimen by BEVERLY with probe detection NEGATIVE [facility] This lab was ordered by [facility] a nd reported by [facility]. ID Date Data Source [id number] 05/09/2020 09:44:34 AM EDT [facility] Labs In-House Blood TestsDate/Time Colle cted: May 09, 2020 9:37 AMTest Result Reference Range Normal ValueComments: Labs drawn in office taken from right hand. Mari was a hard stick, but tolerated it well. Majo Ashley WHITTINGTON, May 09, 2020 9:45 AMAssessment & Plan Orders:[id number]- Ofc Vst-Est Level I [CPT-22290] [id number] - Venipuncture [CPT-23226] Name Value Range Interpretation Code Description Data Savi rce(s) Supporting Document(s) ID Date Data Source [id number] 05/09/2020 09:36:00 AM EDT [facility] Name Value Range Interpretation Code Description Data Savi rce(s) Supporting Document(s) HGBA1C 6.4 % N [facility] ID Date Data Source [id number] 05/09/2020 09:36:00 AM EDT [facility] Name Value Range Interpretation Code Description Data Savi rce(s) Supporting Document(s) BG FASTING 132 mg/dL 70-100 H [facility] TSH 2.220 microintl units/mL 0.358-3.740 N [facility] ID Date Data Source [id number] 02/15/2020 08:10:42 AM EDT [facility] Measurements & CalculationsHeight: 74 inches [...] during this visit, including review of any obsi-lrj-gspnglv medications, herbal therapies, and/or supplements.Allergy ReviewAllergy List [...] general, would you say your health is? FairLaura sessment & Plan Problems:Added: BMI 50.0-59.9 (ICD-V85.43) (ICD10- Z68.43)Encounter for general adult medical examination with abnormal findings (ICD-V70.0) (HFA84-A62.01) Assessment: Instructions: Diet and exercise.Fasting blood tests reviewed.Other specified hypothyroidism (ICD10- E03.8) Assessment: Instructions: Newly diagnosed and this may be a factor in both his sleep apnea and obesity.Recheck 3 months with fasting blood tests before.Assessed:Obstructive sleep apnea syndrome (ICD-327.23) (RQW32-A40.33) Assessment: Instructions: Refer to pulomnary.Pain in right hip (ICD-719.45) (VAI97-T93.551) Assessment: Instructions: Medication options are limited:Opiates are [...] Qty: 60[Tablet] Refills: 5Allergies:SOMA (Severe)Orders:Preventive, Est, (40-64) [CPT-01199] Pulmonology Consult [CPT-08620] COMP METABOLIC PANEL [CPT-57549] TSH [CPT-22667] LIPID PANEL [CPT-45276] HgBA1c [CPT-79604] Medications:LEVOTHYROXINE SODIUM 100 MCG ORAL TABLET (LEVOTHYROXINE SODIUM) One tablet by mouth every day #30[Tablet] x 2 Route:ORAL Entered and Authorized by: John Martinez MD Method used: Electronically to [facility] (retail) [address] [place] [address] Note to Pharmacy: Route: ORAL; RxID: [id number] 5 MG ORAL TABLET (APIXABAN) One po bid. #60[Tablet] x 5 Entered and Authorized by: John Martinez MD Method used: Electronically to [facility] (retail) [address] [place] [address] Fax: Note to Pharmacy: Route: ORAL; RxID: [id number] signed by John Martinez MD on 02/15/2020 at 9:56 AM Name Value Range Interpretation Code Description Data Savi rce(s) Supporting Document(s) ID Date Data Source [id number] 02/07/2020 07:43:23 AM EDT [facility] Labs In-House Blood TestsDate/Time Colle cted: February 07, 2020 7:43 AMTest Result Reference Range Normal ValueComments: blood draw done in office,sam sunshine from right ac, tolerated well.Emely Schmitt, February 07, 2020 7:44 AMAssessment & Plan Orders:[id number]-Mag Vst-Est Level I [CPT-02246] [id number] - Venipuncture [CPT-57521] Name Value Range Interpretation Code Description Data Savi rce(s) Supporting Document(s) ID Date Data Source [id number] 02/07/2020 07:40:00 AM EDT [facility] Name Value Range Interpretation Code Description Data Savi rce(s) Supporting Document(s) HCT 47.0 % 42.0-52.0 N [facility] HGB 14.9 g/dL 13.5-17.5 N [facility] MCH 31.7 G/DL [facility].0-[facility].5 [facility] % 27.0-33.[address] [facility] PLATELETS 194 10 10*3/mm3 150-[address] [facility] RBC 5.29 10 10*6/mm3 4.30-6.10 N [facility] RDW 15.2 % 11.5-14.5 H [facility] WBC TOTAL 9.6 4.0-10.0 N [facility] ID Date Data Source [id number] 02/07/2020 07:40:00 AM EDT [facility] Name Value Range Interpretation Code Description Data Savi rce(s) Supporting Document(s) BG FASTING 118 mg/dL 70-100 H [facility] TSH 4.460 microintl units/mL 0.358-3.740 H [facility] VIT D25 TOT 15.0 ng/mL 30.0-100.0 L [facility] ID Date Data Source [id number] 02/07/2020 07:40:00 AM EDT [facility] Name Value Range Interpretation Code Description Data Savi rce(s) Supporting Document(s) HGBA1C 6.5 % N [facility] ID Date Data Source [id number] 02/05/2020 01:42:25 PM EDT [facility] Measurements & CalculationsHeight: 74 inches [...] been admitted to the hospital? Yes - [facility] for PE Have you been to [...] seen Ortho for a while. Was taking Wishek for this. We had recently increased this [...] Problems:Added: Obstructive sleep apnea syndrome (ICD- 327.23) (AOF75-G04.33) Assessment: Instructions: Refer to pulmonary.We discussed the importance eof treating this as well as the danger of using Wishek with its risk of addiitive respiratory depression. He is anxious about this possibility and I share his cocnern. I would like to avoid this combination for a while and have him focus on using Tylenol until we can address this.Other pulmonary embolism with acute cor pulmonale (LJM08-G44.09) Assessment: Instructions: Due to obesity and immobility. Symptomatically improved.Cotninue current dose of Eliquis for at least 6 months.Assessed:Obesity, unspecified (UXJ20-R36.9) Assessment: Instructions: He will elisa bariatric surgery to reschedule with them. The sooner the better.Pain in right hip (ICD-719.45) (DJC59-T93.551) Assessment: Instructions: He will call Ortho to reschedule.Patient Instructions/Care Plan: Obstructive sleep apnea syndrome: Refer to pulmonary.We discussed the importance eof treating this as well as the danger of using Wishek with its risk of addiitive respiratory depression. [...] daysOrders:Adult - Ofc Vst, EST, Level III [CPT-69077] Medications:EQL NICOTINE POLACRILEX 2 MG MOUTH/THROAT LOZENGE (NICOTINE POLACRILEX) one lozenge slowly dissolved in mouth q2h prn #150[Lozenge] x 1 Route:MOUTH/THROAT Entered and Authorized by: John Martinez MD Method used: Electronically to [facility] (retail) [address] [place] [address] Note to Pharmacy: Route: M/T; RxID: [id number] signed by John Martinez MD on 02/05/2020 at 2:34 PM Name Value Range Interpretation Code Description Data Savi rce(s) Supporting Document(s) ID Date Data Source [id number] 01/30/2020 09:53:13 PM EDT [facility] CT 2ND OPINION READ - CHEST [id number] ESULTInterpreted by:Krishna Parr MDEXAMINATION: CT 2ND OPINION READ - CHEST [id number] INDICATION: 49-year-old male with pulmonary emboli, assess for right heart strain.TECHNIQUE: Axial CTA images of the chest with contrast were acquired at [facility] on January 23, 2020 and submitted [...] rce(s) Supporting Document(s) ID Date Data Source [id number] 01/30/2020 06:02:32 PM EDT [facility] Name Value Range Interpretation Code Description Data Savi rce(s) Supporting Document(s) ED Provider Note [facility] VGFMRk8kQqJXXvOl84/VFLnhOHAzm4CoTKlfZBh9QCloTIBcB5ZnWIX0kO7vTFZ2TOqGFrJrHaAbCsHi lbm [file] xUUyEWxiQZ5ZQIC+Estefani+Ai0ZOROpQJEqJHPhIdNqWXKWCoDzO8NiM1CFp0AbD2DtVU89gXqgluRzVHtf EK0WSF4pZKSpJQYQLM3YpOImtM0lruH0IgGgYEDHQpAuN48gyGLtKEPwHABiIVQqEf4VWAPcU6NecaGv yPcuquLfOQIyPYVHSR1GQAeainTvjJXncKhmSA40yB hlHX0CXd9QXlSuBQ5axw5VjWGyTd4ITUM5HL5HVAEcCAFoKYNcEKW2OBOmBkLzXSlzKKSjMQKgWZX9UL QuDPYoUN9IHvInBLVgFEZjGwmaSUNiUGTkbg9OECKuQLJ1CtCjCARzMDTxLQVgDObyJUPiQSWmTID8UX NmVQPwMZ1RToOgBESsJJLiXkteKECnMUJfwk2DMPAs YGXtDzE5FBLkPZQxTYZuKQhlFYQyUVW0KxMkXQMcPMWoIK8PIgKjIPIrFCQ4OYfoXSDlQWGjzs3KOOUh YPUgSNE5ScPjYQXvCGCpENyfVITzFLI4Nnw8UMUhLIKyIU0UQlSfMNGaUSF8WGlpNJYvYSYjfm7RRPPq SRLcLJv2XHDnHTIsHQYmUDhkEUHfXSUnCFO4SXGvUF CgMY9UXdEqKIGxJDMqRiQxEUBzRDJwbz2XHBZqQPPlMJR2SxWfUMReRLHwDNznTVXcUPQ4TbGaBSTyGU QtLA9COqKjUHBwNHD2XOmeAXBcUTSeme9JOBQvBRVoSAH6MUTdSMQqUVKbDZlkTVCwWKT4Wmv5QLAzDK XhTR6RLxNiLIKvRAqfMBSjNOYoZAExga3QNLXaLFHg MmYjTrUiRFCdPDTiDAziZQXbYHVpZlC9JMQmOHGnDK4HXwQzRASaEkB6XMCjJKCiXYJvas0MPCVuBXUg DNZyXaAcRLAoGHXvMVdiDBBmUXU4Dfe7NERiBVCoAX8QAsLqXHJkWqz4BIGnRECzIFTcnl1VISAwYIJn EEIkZCMqLLUyNOCwSGufNOLsAWHxLLR9ZUMlQDWsUR 4CSzRrQAEuXsTkALAqIXAvTJQajc5MLCXxAGKbHbVeWWGuGNYsRDRyNKhaKUUmMTCjToXnLAFjSJLeGN 3CRrEeNHRlGcA0HRunQZVbVEMvcn0BFCMzTEWvQyE1SUVjGXEwQMUkTYdwHSWhCNV6BmQjMDXmXSFhFD 4WVmInCLXlSpX8TGTqSMMmTOUzwj4ZCJGcLXRiUZm7 UROiCDTpQTCdLYdkPPPzIMJ1AIKlLIQvFDLyAS5HMuZfGCVuDsHwLYypKMHfGCKfct0SHODjOWCfYmFz SEUrJPUoJJLdDBznSTSiOLC6YrT0SNFzUODhLI5HYmYtIBTkVOrqUwHyVZJqVMTdfv3WOOJeBFX0FPC5 IaEnMQMaAWLyXOrbKMHzUBY5VTliOANyBDKoTO0PQa FxNXOvVNd2JyioRSNvLOWelm7GVDBbHNE7UIV1KZWqADIlQMRgIAdqXWAwZCC6ApQ9TZKkFCKrTS3HKu EjKMEySOm7FkBwWHUxKZRjrb5NPKAkZDV3LWh1RGDkRHCePURhFVtrSLAtFXWaQBU1AZSrHZJsHE8MNy JgEMOwTXFtCEFwGRQdRYLszt9HVGCxADL1YPE4INKg QWFuAYFbGNdzJPTmLEEsMlW6QSGjJXFrVE0XCbFyGVFkPCHtPRFcYHXgFYVywh3BVUXqAVH2FwE3WsXj ZGRwAKXrFPbhZYBfZXElNSb6UJLkVGJiJA0UTzIvMONpCPE5QAKqUONyNNTdco0HUOYhFHJ7Cyy3IOYa TOAyJNIbGBctKCAiLQW9MKB1TNYeBSMzQP9JToZeYQ ngOGMQSet4AMfiT7g0JZB4ZF9LK2Pvd4PiEMirLWUEPCbsPK5tbgIkPZZiOx0LY1qUOrotWICjMAQoVP ZzRXSzAYEbZQV5IFXuCGFfBxHxHvJxMt3mFRYlFyChFJNeUJC3ZPTeROT7IUXdHEW6UfYwXXPmHrN3Si QjLA5IIk6VNyS2FCM9zSPjEe6OUEP3REgRXjTtYK1QJJr= ID Date Data Source [id number] 01/28/2020 06:01:10 PM EDT [facility] Name Value Range Interpretation Code Description Data Savi rce(s) Supporting Document(s) Discharge Summary [facility] NVFBNl4uZpWCWeSt86/CYWdtMMWvl0CwUMseFSk4SYriTLBjX5ScGQM1jK2nWUZ2PLkWBfStAnXhNOGl lbm [file] KkVgNm1SGJYON9GVHz== ID Date Data Source [id number] 01/27/2020 06:08:37 AM EDT [facility] Name Value Range Interpretation Code Description Data Savi e(s) Supporting Document(s) Leukocytes [#/volume] in Blood by Automated count 9.6 10*3/uL 4-10 [facility] Erythrocytes [#/volume] in Blood by Automated count 4.35 10*6/uL 4.6- 6.1 L [facility] Hemoglobin [Mass/volume] in Blood 12.3 g/dL 13.5-18 L [facility] Hematocrit [Volume Fraction] of Blood by Automated count 37.1 % 4 1-53 L [facility] Erythrocyte mean corpuscular volume [Entitic volume] by Auto mated count 85.3 fL 80-96 [facility] Erythrocyte mean corpuscular hemoglobin [Entitic mass] by Automated count 28.4 pg 27-33 [facility] Erythrocyte mean corpuscular hemoglobin concentration [Mass/volume] by Automated count 33.3 g/dL 32.0-36.0 [facility] Erythrocyte distribution width [Ratio] by Automated count 15.5 % 11.5-14.5 H [facility] Platelets [#/volume] in Blood by Automated count 129 10*3/uL 150-400 L [facility] ID Date Data Source [id number] 01/27/2020 06:13:44 AM [facility] Value Range Interpretation Code Description Data Savi rce(s) Supporting Document(s) Prothrombin time (PT) 13.7 s 12.5-14.9 [facility] INR in Platelet poor plasma by Coagulation assay 1.04 [facility] Routine intensity oral anticoagulation I NR is typically 2.0-3.0. Target INR must be clinically individualized. ID Date Data Source [id number] 01/27/2020 06:13:44 AM [facility] Value Range Interpretation Code Description Data Savi rce(s) Supporting Document(s) Heparin unfractionated [Units/volume] in Platelet poor plasma by Chromogenic method 0.43 U/ml [facility] ID Date Data Source [id number] 01/27/2020 06:28:03 AM [facility] Value Range Interpretation Code Description Data Savi rce(s) Supporting Document(s) Natriuretic peptide.B prohormone N-Terminal [Mass/volu me] in Serum or Plasma 1872 pg/mL <125 H [facility] ID Date Data Source [id number] 01/27/2020 06:28:03 AM [facility] Value Range Interpretation Code Description Data Savi rce(s) Supporting Document(s) Bicarbonate [Moles/volume] in Serum 23 mmol/L 22-29 [facility] Chloride [Moles/volume] in Serum or Plasma 103 mmol/L 98-107 [facility] Creatinine [Mass/volume] in Serum or Plasma 1.21 mg/dL 0.70-1.20 H [facility] Glucose [Mass/volume] in Serum or Plasma 93 mg/dL 70-140 [facility] Potassium [Moles/volume] in Serum or Plasma 3.9 mmol/L 3.4-5.1 [facility] Sodium [Moles/volume] in Serum or Plasma 138 mmol/L 136-145 [facility] Urea nitrogen [Mass/volume] in Serum or Plasma 8 mg/dL 6-20 [facility] Anion gap 3 in Serum or Plasma 12 mmol/L 8-15 [facility] Osmolality of Serum or Plasma by calculation 284 mosm/kg 275-300 [facility] Creatinine/Urea nitrogen [Mass Ratio] in Serum or Plasma 7 [facility] Calcium [Mass/volume] in Serum or Plasma 8.5 mg/dL 8.6-10.0 L [facility] Glomerular filtration rate/1.73 sq M pre dicted among non-blacks [Volume Rate/Area] in Serum or Plasma by Creatinine-based formula (MDRD) 70 mL/min/1.73m2 >60 [facility] Glomerular filtration rate/1.73 sq M pre dicted among blacks [Volume Rate/Area] in Serum or Plasma by Creatinine-based formula (MDRD) 81 mL/min/1.73m2 >60 [facility] ID Date Data Source [id number] 01/26/2020 11:21:16 PM EDT [facility] Name Value Range Interpretation Code Description Data Savi rce(s) Supporting Document(s) Heparin unfractionated [Units/volume] in Platelet poor plasma by Chromogenic method 0.35 U/ml [facility] ID Date Data Source [id number] 01/26/2020 05:41:39 PM [facility] Name Value Range Interpretation Code Description Data Savi rce(s) Supporting Document(s) [facility] TERTNr9tNlLPRaTa23/VAKnpYTOfl4YxJIxrYZp6IKfyFDLzG9VjFJZ6sR1pODE7LBmBKtRpBzDgSAH4 [facility] [file] [id number]+contract technical writer+eRo0k8dNFXVaf22s9YAdCq9DH [file] IDHlGOPeTmPdEMF2E4PiAuG7QR8gKNGMFe1+WUwdiOChsBfpTSGNCqN2LSF6WBqwUPSQVv7Z ID Date Data Source [id number] 01/26/2020 05:57:52 PM [facility] Name Value Range Interpretation Code Description Data Savi rce(s) Supporting Document(s) Heparin unfractionated [Units/volume] in Platelet poor plasma by Chromogenic [facility].52 [facility] [id number] 01/26/2020 11:46:08 AM [facility] Value Range Interpretation Code Description Data Savi rce(s) Supporting Document(s) Heparin unfractionated [Units/volume] in Platelet poor plasma by Chromogenic method 0.14 [facility] Data Source [id number] 01/26/2020 03:50:27 AM [facility] Value Range Interpretation Code Description Data Savi rce(s) Supporting Document(s) Leukocytes [#/volume] in Blood by Automated count 10.5 10*3/uL 4-10 H [facility] Erythrocytes [#/volume] in Blood by Automated count 4.37 10*6/uL 4.6- 6.1 L [facility] Hemoglobin [Mass/volume] in Blood 12.3 g/dL 13.5-18 L [facility] Hematocrit [Volume Fraction] of Blood by Automated count 37.2 % 4 1-53 L [facility] Erythrocyte mean corpuscular volume [Entitic volume] by Auto mated count 85.3 fL 80-96 [facility] Erythrocyte mean corpuscular hemoglobin [Entitic mass] by Automated count 28.2 pg 27-33 [facility] Erythrocyte mean corpuscular hemoglobin concentration [Mass/volume] by Automated count 33.0 g/dL 32.0-36.0 [facility] Erythrocyte distribution width [Ratio] by Automated count 15.4 % 11.5-14.5 H [facility] Platelets [#/volume] in Blood by Automated count 113 10*3/uL 150-400 L [facility] ID Date Data Source [id number] 01/26/2020 04:03:44 AM [facility] Value Range Interpretation Code Description Data Savi rce(s) Supporting Document(s) Heparin unfractionated [Units/volume] in Platelet poor plasma by Chromogenic method 0.37 [facility] Data Source [id number] 01/26/2020 04:03:44 AM [facility] Name Value Range Interpretation Code Description Data Savi rce(s) Supporting Document(s) Prothrombin time (PT) 14.3 s 12.5-14.9 [facility] INR in Platelet poor plasma by Coagulation assay 1.10 [facility] Routine intensity oral anticoagulation I NR is typically 2.0-3.0. Target INR must be clinically individualized. ID Date Data Source [id number] 01/26/2020 04:03:51 AM [facility] Value Range Interpretation Code Description Data Savi rce(s) Supporting Document(s) Bicarbonate [Moles/volume] in Serum 21 mmol/L 22-29 L [facility] Chloride [Moles/volume] in Serum or Plasma 105 mmol/L 98-107 [facility] Creatinine [Mass/volume] in Serum or Plasma 1.21 mg/dL 0.70-1.20 H [facility] Glucose [Mass/volume] in Serum or Plasma 111 mg/dL 70-140 [facility] Potassium [Moles/volume] in Serum or Plasma 3.9 mmol/L 3.4-5.1 [facility] Sodium [Moles/volume] in Serum or Plasma 136 mmol/L 136-145 [facility] Urea nitrogen [Mass/volume] in Serum or Plasma 9 mg/dL 6-20 [facility] Anion gap 3 in Serum or Plasma 10 mmol/L 8-15 [facility] Osmolality of Serum or Plasma by calculation 282 mosm/kg 275-300 [facility] Creatinine/Urea nitrogen [Mass Ratio] in Serum or Plasma 8 [facility] Calcium [Mass/volume] in Serum or Plasma 8.2 mg/dL 8.6-10.0 L [facility] Glomerular filtration rate/1.73 sq M pre dicted among non-blacks [Volume Rate/Area] in Serum or Plasma by Creatinine-based formula (MDRD) 70 mL/min/1.73m2 >60 [facility] Glomerular filtration rate/1.73 sq M pre dicted among blacks [Volume Rate/Area] in Serum or Plasma by Creatinine-based formula (MDRD) 81 mL/min/1.73m2 >60 [facility] ID Date Data Source [id number] 01/25/2020 08:46:27 PM EDT [facility] Name Value Range Interpretation Code Description Data Savi rce(s) Supporting Document(s) Heparin unfractionated [Units/volume] in Platelet poor plasma by Chromogenic method [facility] Date Data Source [id number] 01/25/2020 03:04:44 PM EDT [facility] Name Value Range Interpretation Code Description Data Savi rce(s) Supporting Document(s) [facility] NIUIZp0mSiVISjIn95/VPBpmVXFmn9UtTLioNMo9BTatSXKzJ2LtSUI5nW1pHVM7DSaKVaXpPgGpOQY9 lbm [file] [id number]+HBzccPVvhVxqOTOGPbW2WcW6WSchGYNPRl6Y ID Date Data Source [id number] [facility]2020 [facility] Value Range Interpretation Code Description Data Savi rce(s) Supporting Document(s) Heparin unfractionated [Units/volume] in Platelet poor plasma by Chromogenic method 0.29 U/ml [facility] al ID Date Data Source [id number] 01/25/2020 05:26:45 AM [facility] Value Range Interpretation Code Description Data Savi rce(s) Supporting Document(s) Leukocytes [#/volume] in Blood by Automated count 10.7 10*3/uL 4-10 H [facility] Erythrocytes [#/volume] in Blood by Automated count 4.40 10*6/uL 4.6- 6.1 L [facility] Hemoglobin [Mass/volume] in Blood 12.5 g/dL 13.5-18 L [facility] Hematocrit [Volume Fraction] of Blood by Automated count 37.9 % 4 1-53 L [facility] Erythrocyte mean corpuscular volume [Entitic volume] by Auto mated count 86.1 fL 80-96 [facility] Erythrocyte mean corpuscular hemoglobin [Entitic mass] by Automated count 28.5 pg 27-33 [facility] Erythrocyte mean corpuscular hemoglobin concentration [Mass/volume] by Automated count 33.0 g/dL 32.0-36.0 [facility] width [Ratio] by Automated count 15.4 % 11.5-14.5 H [facility] Platelets [#/volume] in Blood by Automated count 109 10*3/uL 150-400 L [facility] ID Date Data Source [id number] 01/25/2020 05:36:28 AM EDT [facility] Name Value Range Interpretation Code Description Data Savi rce(s) Supporting Document(s) Heparin unfractionated [Units/volume] in Platelet poor plasma by Chromogenic method 0.28 U/ml [facility] al ID Date Data Source [id number] 01/25/2020 05:36:28 AM EDT [facility] Name Value Range Interpretation Code Description Data Savi rce(s) Supporting Document(s) Prothrombin time (PT) 14.5 s 12.5-14.9 [facility] INR in Platelet poor plasma by Coagulation assay 1.12 [facility] Routine intensity oral anticoagulation I NR is typically 2.0-3.0. Target INR must be clinically individualized. ID Date Data Source [id number] [facility] Interpret[facility] Code Description Data Savi rce(s) Supporting Document(s) Bicarbonate [Moles/volume] in Serum 25 mmol/L 22-29 [facility] Chloride [Moles/volume] in Serum or Plasma 103 mmol/L 98-107 [facility] Creatinine [Mass/volume] in Serum or Plasma 1.36 mg/dL 0.70-1.20 H [facility] Glucose [Mass/volume] in Serum or Plasma 106 mg/dL 70-140 [facility] Potassium [Moles/volume] in Serum or Plasma 4.3 mmol/L 3.4-5.1 [facility] Sodium [Moles/volume] in Serum or Plasma 137 mmol/L 136-145 [facility] Urea nitrogen [Mass/volume] in Serum or Plasma 13 mg/dL 6-20 [facility] Anion gap 3 in Serum or Plasma 9 mmol/L 8-15 [facility] Osmolality of Serum or Plasma by calculation 284 mosm/kg 275-300 [facility] Creatinine/Urea nitrogen [Mass Ratio] in Serum or Plasma 10 [facility] Calcium [Mass/volume] in Serum or Plasma 8.1 mg/dL 8.6-10.0 L [facility] Glomerular filtration rate/1.73 sq M pre dicted among non-blacks [Volume Rate/Area] in Serum or Plasma by Creatinine-based formula (MDRD) 61 mL/min/1.73m2 >60 [facility] Glomerular filtration rate/1.73 sq M pre dicted among blacks [Volume Rate/Area] in Serum or Plasma by Creatinine-based formula (MDRD) 70 mL/min/1.73m2 >60 [facility] ID Date Data Source [id number] [facility] Interpretation Code Description Data Savi rce(s) Supporting Document(s) Natriuretic peptide.B prohormone N-Terminal [Mass/volu me] in Serum or Plasma 3004 pg/mL <125 H [facility] ID Date Data Source [id number] 01/24/2020 09:35:29 PM [facility] Value Range Interpretation Code Description Data Savi rce(s) Supporting Document(s) Leukocytes [#/volume] in Blood by Automated count 11.2 10*3/uL 4-10 H [facility] Erythrocytes [#/volume] in Blood by Automated count 4.50 10*6/uL 4.6- 6.1 L [facility] Hemoglobin [Mass/volume] in Blood 12.9 g/dL 13.5-18 L [facility] Hematocrit [Volume Fraction] of Blood by Automated count 38.0 % 4 1-53 L [facility] Erythrocyte mean corpuscular volume [Entitic volume] by Auto mated count 84.5 fL 80-96 [facility] Erythrocyte mean corpuscular hemoglobin [Entitic mass] by Automated count 28.7 pg 27-33 [facility] Erythrocyte mean corpuscular hemoglobin concentration [Mass/volume] by Automated count 34.0 g/dL 32.0-36.0 [facility] Erythrocyte distribution width [Ratio] by Automated count 15.4 % 11.5-14.5 H [facility] Platelets [#/volume] in Blood by Automated count 108 10*3/uL 150-400 L [facility] ID Date Data Source [id number] 01/24/2020 09:56:55 PM [facility] Value Range Interpretation Code Description Data Savi rce(s) Supporting Document(s) Heparin unfractionated [Units/volume] in Platelet poor plasma by Chromogenic method [facility] ID Date Data Source [id number] 01/24/2020 09:56:55 PM [facility] Value Range Interpretation Code Description Data Savi rce(s) Supporting Document(s) Prothrombin time (PT) 14.9 s 12.5-14.9 [facility] INR in Platelet poor plasma by Coagulation assay 1.15 [facility] Routine intensity oral anticoagulation I NR is typically 2.0-3.0. Target INR must be clinically individualized. ID Date Data Source [id number] 01/24/2020 05:39:04 PM EDT [facility] Name Value Range Interpretation Code Description Data Savi rce(s) Supporting Document(s) History and Physical [facility] PCBDJa0kIcOVFfZl18/AIGpvHCVps0VzKExhXCe6LKjhTVMgW3CzABQ0aL9jQKM2AEaJKtVzGsAqCBV4 lbm [file] AgICAgICAgICAgICAgICAgICAgICAgICAgICAgICAg ICAgICAgICAgICAgICANCiAgICAgICAgICAgICAgICAgICAgICAgICAgICAgICAgICAgICAgICAgICAg ICAgICAgICAgICAgICAgICAgICAgICAgICAgICAgICAgICAgICAgICAgICAgICAgICAgICAgICANCiAg ICAgICAgICAgICAgICAgICAgICAgICAgICAgICAgIC AgICAgICAgICAgICAgICAgICAgICAgICAgICAgICAgICAgICAgICAgICAgICAgICAgICAgICAgICAgIC AgICAgICANCiAgICAgICAgICAgICAgICAgICAgICAgICAgICAgICAgICAgICAgICAgICAgICAgICAgIC AgICAgICAgICAgICAgICAgICAgICAgICAgICAgICAg ICAgICAgICAgICAgICAgICANCiAgICAgICAgICAgICAgICAgICAgICAgICAgICAgICAgICAgICAgICAg ICAgICAgICAgICAgICAgICAgICAgICAgICAgICAgICAgICAgICAgICAgICAgICAgICAgICAgICAgICAN CiAgICAgICAgICAgICAgICAgICAgICAgICAgICAgIC AgICAgICAgICAgICAgICAgICAgICAgICAgICAgICAgICAgICAgICAgICAgICAgICAgICAgICAgICAgIC AgICAgICAgICANCiAgICAgICAgICAgICAgICAgICAgICAgICAgICAgICAgICAgICAgICAgICAgICAgIC AgICAgICAgICAgICAgICAgICAgICAgICAgICAgICAg ICAgICAgICAgICAgICAgICAgICANCiAgICAgICAgICAgICAgICAgICAgICAgICAgICAgICAgICAgICAg ICAgICAgICAgICAgICAgICAgICAgICAgICAgICAgICAgICAgICAgICAgICAgICAgICAgICAgICAgICAg ICANCiAgICAgICAgICAgICAgICAgICAgICAgICAgIC AgICAgICAgICAgICAgICAgICAgICAgICAgICAgICAgICAgICAgICAgICAgICAgICAgICAgICAgICAgIC AgICAgICAgICAgICANCiAgICAgICAgICAgICAgICAgICAgICAgICAgICAgICAgICAgICAgICAgICAgIC AgICAgICAgICAgICAgICAgICAgICAgICAgICAgICAg ICAgICAgICAgICAgICAgICAgICAgICANCjw/hYBjI6yczVMgpxK9P5hzWx3JLl0SFV4gu1HzHZKnDZim grRoFrhMJfLiFRWmNuyWDew0UShuEZ7JpJUjA3JzJ5PxILauYD9BYRRlRACuwWCeSMYyRWXlVvA1MCSn QBnxOL4JmQRnCJewIXFiRDMkVgEjFIJzHBYjGNJyRB YeUVMZZMDlUFNgIdYfRVntZF9Hk8YbrFK6JEk+Xt6HRR7xs0JaZCfwOXLmOR6tny1LSEsLItOeN0Lnxw Y8HTYzOPBzNk7ZPPGjATCnoIX5CWZkLXAUWkOoP1UolG38KFMFKk3+WJylhzYtDxfFByQeNQWwp3DfXZ o9LJ5RJIIxLMl7bCTzSUZKWGJ5YSHdcAUwHGInA7tv rzwaNQPrVGVuDO8vDr3cPPMsJXDiWiIrWAKUFW7MZQJpTAXjrEXcZBSuDVDZSV3LYFjnVQK7IFTkgaFb fBBxXFrdOP4RTTJjqpPcRzaoOEFMYVf+Ri3ZYQ2gy7QmCEa3LPAoON1ykx5KDOwZVcGlU3V0uRFiR5A1 BAmlHd6VXXYwFHUnVryxFZHBBJwzSL9FJS2rruJ9UM 2DcBOqJNAcFEPozJTtDBl0C12zxREaULeuYZ1CUXC+Estefani+Ac2SLJSnDFPoNEDwRrXdFUCCUoToJ2UsQ7 COd4CyC5YcQT79aRcjriZaEZyfLK1IGO4xDFLkQIQDFN2KvZOgkP7xphIeUCGcXODPRcAaL33yaGRyOP YpNBR0TMFkYo4BBSQfT3GhttDvtShumtIbWWIrTIBD WP5AWRpqkbEbmPVaqBylWA28jPkeJX8WPf0BYtDxVJ1qyw2EvIHaOl0VFRA9Lj2KLGTaFCUmMVBnUNA6 BPClDrUcMVnzNBSvAOEqGKR6XIGsDTJfAR3YXcYdJWCxYdElXAqqVBYjXVAdzv1VDIOfHIFqIfv8EsMi RJCuUPOwWZzoXQUmYAMiFEG7BXFxCAAuCQ1WUvGjXB YmALB2DQkcBTWjNWYtbe8VYFHoKARjPjt3KARrDAYeSXQdPGuiEFJtSSV9KvU2UBUrCBSuRL1XTxQjQW YqFNm4KhbuQTKdEZHzzq6UAVVuTMTmNGz8CcXgWJPaKYArAEojGKOuQJXdYOprYRQsQBVsKR0HFrBaNE HoZANeVxTiMOJjEDNgqq7PSKLlBIMnKUKyMZYoEUSe QWXpERdsWGUfZJF0NExnDYPpPIUeXM9BWvKeHLMqOAM4HBabCEToPUTejc7RSWJvFVVsKkx9IZCnRREs DXThTOzdWPFzVZJ0EUH6JVHeEVQcWE8VTaJsAQKvZMguAegzXXBsCVIoyr5BZRYqXZQsCMG3DsZyTFZv NLVnHDceSFOfGCH9Qda7PQPcVXKgUR7GQiBrHHWbJT y1VBnhCPRfVLIbwm3NWSUjXSEkMJA8JwRvEMWyMDXzSGchFGSrPUE4NzX9ERQxUAWkPF0BBnXsRJDtBV b6PbAeFHJaBQOrke6PUVTrRNGzNZj5BvUdSVKoFSIaPEqnZPVxBLVfYXnjMXXkDIQsGC9ZIfWoIJSoYv VzWhVpJOHpXDTgvz2AFXOnRNRfNnXmZkMoPSWnLZOd QCxtNGVqRDHrUfWeYKJeFJRjUE3BPmGgEQCfPyZ2NkKqIUNnBUNrib2DHFLaEYJaHtwkKOVdESTtDHUd LKcfPIGvWHC6KiUrRUAcEOPfDX3KKwEvOENsFtB0KPMfLZLyIBZxfv1NQACpSULvCGA9JSPiRBDgQDEx MQdqFAKlJWG1OYN1NCMjICDlHT6TAqUlLZRpOvR7Wr CoIQXoFQGkoo3PSJChQGSgAHy2MGEjCDBhKIXeVGteLTBnYTN0PIZ0IDOlSLFwMD4NQjYsDNMcDrL1CH XzWSVyPPPiik2ZHRVtZKTuSIB9QnTcUNTgSRFrWKmzIDQiPDW3COZ5HUUsERMcFQ5JNcDrZVGfQkaoAw PoJMWaXVNkyv2ZwCGzaHswkl2CWGnMLi4RnIulDUWh DUieEm1jzBY3HGJbCVWQSh7EjfBfKJAgTMXCRTnvHMCnTFQqTaKvYxN6YJB0MsWnKFncYmDxXDHsSMeg YBTvGTC1AbH2ApYmAFVlYgo5ZJA8EDX3FXNeR9F9XqCoKBNhYeA9CiI+IE3cBQn+Xm6St7AftlB1csWv CIwrWCJvDc3NXKHAO4BQMw== ID Date Data Source [id number] 01/24/2020 02:12:14 PM EDT [facility] Name Value Range Interpretation Code Description Data Savi rce(s) Supporting Document(s) Heparin unfractionated [Units/volume] in Platelet poor plasma by Chromogenic method [facility] ID Date Data Source [id number] 01/24/2020 08:45:18 AM EDT [facility] Name Value Range Interpretation Code Description Data Savi rce(s) Supporting Document(s) [facility] EELZAo5sWkBUDpIze3VnQgLvZMAoWS5wbmm3D9W4yYChP1QlaZEep8dfB2EmA9WyIZUqTAZUKG5HeVIt jb2 [file] //xAB1z24V+oes4F7eUr3ia0141B/fp4647B33/NU3f+Zn9xx8/+jh17610Tay6g0zt319//GrL97+/u 2/v/vx/kaiR800t+8/jASjp7yv81/78vs/839pz/+/ //Q8G01338crJ+4/b4037xuowBnx9ujBZ//jTtB1//F91v83Q2/3M838X7B3/9uvP7z/3lnrPj08/fL7 t3c/hrej40t//Pr9n/jMLxkvX78vgp/8y+/+9Puf/vntn/8i5sfsob368RkH4837/rkv09x9944wgwj3 q/dfv/3qZ8c4g762++Ac1bpP5q/YT3F+3i2g9ye97/ wXi+/Ao/3M7fe//8W/8dJrSsFyveDf/ak0zmuajWX496n/F+D+WfcS0XfP8mvQZSXjWi1qp68fUHS21N oQm059QYuW1+uLV4d+d50nfX8f2z3Il0/+5ac//Ysk9RF5aj++f70kb//tV+++/aSl7ZO/lJF/ef8nzf jikxw7VG2c/vOBi3tAtvpHUamcqCryWF/+9Id//5u3 P/3m33/65OyvKfItEubcP/v8p6RSXhVMl735R/76w9vv/vDvP/3pf//mX//S5L49Er514VcsML+fn/1g f//h+7d//o/Xvf/uj3/4+eu1qpeauZ6P8FD///EXf//aj6wU01ChbLsloDy1R4e/JHzVROqo5R7/vt0A nDi4mlTkxD9/v6uD/pzaO525xGzU//np3/7rm/M8N/ SCog0rp2/u5WUlz3/723/+6R//6me/Ps/hm9/35cgPp26QofDx//jtb/7td7/5w8/+lora3Ln/+Pn/n/ dw+L/+03/655MHJ0/84+8//+UgkfSP5k74e21+/snUsDfRRLmBG//402//5x9+99vX/X3+JveWyvGz3+ 7SHvHbf/x7O4g5647//f6/Xm/Tuk6k85451q95A6// nDPWPQ3+/39yf/Jamar+eA++vf/I+f3uTtj//zjwbnw1YEY4W4gc1/DRUvpvv+y4+vEeMeEN/Lw2914rEF 7z+8GtWb3+WN7ua7H6777agiF061gpV6fk8Hq35x/k7BUR5UMxKvUAX7rrXdvBmxmfZsUfiKRSulKQXp Pli4CW1AkNNvMXPtZ1N9CJTqhn9qGUAeCFBwzTUzCm CjHHDJSJ9PkPOqHH6CFWd9JDVhOSCxSrRwOPTscuV8OJUnFNOzHDRfO7EtzfQkyHXpYYMfBd0+ZW5kb2 TySeFsDUAzQrf9OA3QaWXmFS1BqPFdnZ4dnvNbJ109ruHeNKOnQfzpn5JrBFhtJHQHBY8OPBY2IBU8IK AgUj4+EV6kn1GaBtKoLPFqEcs5LV0TpBDme5ObXD9T A7EvTSRrRRQXGTD7x4MgVIEqjkqovylzE5GxEVY1vN7cJPF7CUBfBGktPGKuKGJuNxT8VBJrXSldTZIv NFGoDVRnBTJbGXk2gMPuKR1DS5RfRQCyLEIQEQJeqzPgIp8fJHEVYVKWWQSWFIHRXvUUSYMqQBK6RvA5 ACZcI4UrkrEruAKlAUVOQPcaMkxbHCCaoU2vfBziM1 UaMKH6u1KaFX3AL9NzOGFbIGRPFIT1o9HrNBBkvjtmplvtVrPeOYJzKYUnWDUrCH2Ekr8plUIkpkOmRK GNEGylHztsSO0neKhtdomgN4KtlOOvKDM+GhLsBS8cbc6+WgDlFMQlNgc6TVEnKZfyGLMnFKPpJYFcI6 faBHGnHlIgXCUaMcJiWN4Kq9YxuGQoQy6reuJlHfgY bMDcBcwaHBTtYQTsCCFuFiQHDOOoBYJoMLRgLFB5EBNiBPItLXlfAWTeVOI6MGjkDFNcRGBpAQ5hEkGk MHMkVkNhZJenBNJcNVBprxIUNDBxNZB1TFKrChEsJVBeMRLfMKiaHOJkCOAdORZxEFF7QWR6DGKkJwIz LVWqSHWaZBNiFHGyLSOxyeYGAOXyHQMxYWD1CHCjKK NtYEIiELxbZDZdXDGcRKqrKAJuJGHuFA7mPrPxCXPkIMDsYPibNOYeMRYymoZAUHCqFZSvMVZaCZHhPZ GcUNUtAHmhIIZkXITbJURmTKNjLSBeVE8uAhMdCIYoSYK2HOZuWXDcYACyhoLLBWZwPSJvKUl5DTLwVD NwYRCjRXwbDUGqFUMhVWQ8VVKeBEJdLB2dIeOePAGz DON0RuOpBSDdKIChzrQCXEXlYBEuUFR8XgUuICCdHHAcRKkdLCRsAASiJKhgVLQzGAXkIK9hOjYqHJJt PMOpUNcmKJUjDZTdyaAMCVRkYOHiNQQeYyKpOEPpWVTzNXvnIMQpPDG8XCI3JRVrNLCaEG3sBxKiWXAs UJM7DFqeJWXwBTFosbZYTJMcVXFzPKszUJEiJOMjFR TeXQqsEXTdBVEmEFH6GPYhROThDG5oSiIqDVTqVXRlOHSuGxW4SvXeQeYAoHKrnWekpjo8QOdpN6g4BB QjNFzdBE9uvaDlLCCsTgvlGq5weHS0MKRzWftNFy0Au6QyrbE5lxZpNiV3WXZ9PbSoKT8T ID Date Data Source [id number] 01/24/2020 06:59:29 AM EDT [facility] Name Value Range Interpretation Code Description Data Savi rce(s) Supporting Document(s) Consultation [facility] BHAWCn7hUfNIQsTo69/GKHwmMWVok0ZpJReyBFz5RRsmLNFlE9RbIOT6gH5rBCT1CJdCWaAeLpYaPEF3 lbm [file] AgICAgICAgICAgICAgICAgICAgICAgICAgICAgICAgICAgICAgICAgICAgICANCiAgICAgICAgICAgIC AgICAgICAgICAgICAgICAgICAgICAgICAgICAgICAg ICAgICAgICAgICAgICAgICAgICAgICAgICAgICAgICAgICAgICAgICAgICAgICAgICAgICAgICANCiAg ICAgICAgICAgICAgICAgICAgICAgICAgICAgICAgICAgICAgICAgICAgICAgICAgICAgICAgICAgICAg ICAgICAgICAgICAgICAgICAgICAgICAgICAgICAgIC AgICAgICANCiAgICAgICAgICAgICAgICAgICAgICAgICAgICAgICAgICAgICAgICAgICAgICAgICAgIC AgICAgICAgICAgICAgICAgICAgICAgICAgICAgICAgICAgICAgICAgICAgICAgICANCiAgICAgICAgIC AgICAgICAgICAgICAgICAgICAgICAgICAgICAgICAg ICAgICAgICAgICAgICAgICAgICAgICAgICAgICAgICAgICAgICAgICAgICAgICAgICAgICAgICAgICAN CiAgICAgICAgICAgICAgICAgICAgICAgICAgICAgICAgICAgICAgICAgICAgICAgICAgICAgICAgICAg ICAgICAgICAgICAgICAgICAgICAgICAgICAgICAgIC AgICAgICAgICANCiAgICAgICAgICAgICAgICAgICAgICAgICAgICAgICAgICAgICAgICAgICAgICAgIC AgICAgICAgICAgICAgICAgICAgICAgICAgICAgICAgICAgICAgICAgICAgICAgICAgICANCiAgICAgIC AgICAgICAgICAgICAgICAgICAgICAgICAgICAgICAg ICAgICAgICAgICAgICAgICAgICAgICAgICAgICAgICAgICAgICAgICAgICAgICAgICAgICAgICAgICAg ICANCiAgICAgICAgICAgICAgICAgICAgICAgICAgICAgICAgICAgICAgICAgICAgICAgICAgICAgICAg ICAgICAgICAgICAgICAgICAgICAgICAgICAgICAgIC AgICAgICAgICAgICANCiAgICAgICAgICAgICAgICAgICAgICAgICAgICAgICAgICAgICAgICAgICAgIC AgICAgICAgICAgICAgICAgICAgICAgICAgICAgICAgICAgICAgICAgICAgICAgICAgICAgICANCjw/eH UcL6epdRJdzsP9X6ddDd6ULi5FRQ5zb6FtQHYlQCwr cwCsUmhWDwQlHGEoImvOSai7HBsuSF2RiCVpA8LzA1BgYBxcBH7HTENrZLYshYBpNJUlEYXuTiJ5RKWp TOrqNN8OgKXqONsqXJHyWLYuOuSbKGBuSZMpMMDfVCVsTWSYLD8DZiHfW5GquX96QKEBRt8+DQplbmRv IysLQbI0ALJlu2PnFIf6VG9XCHFrGvani4QvYtFeOS WKMEeoPS2DTNH4OPU3IKIoHq3COLTyR814txUvNV9OZs7GMaUqDF8osp0NZzTtKNEiLhgSVqz8HJoqCZ 1JjHVqFLjXh19yfHs3czKnjZTEMXJch6ozXWQoeWXtPGYJVcDGGWN7HELhHstqFuXvEWGxZXpsMOPIEC bMNqZwH1Hvz1WmMdI9RBOvOkReWWmkIYOmVrS3GH27 oFoaMV2WMXSwLKFwPZ13PJH2CZUfZb0DEw4KAaLyOZ0ypy5AGoUkOKVlXegCMse2IGcoKQ6EjLEfB2Jz hNAww4fOFfWvX0GTIFKtRVAbMp6NCQOmZrXaVVLmQFulFH8kCOAyBGYAdNdmknC0JI3RFR2hbgVjEP7U AjWmGu4yRq4XFbChW3YyB9QxFXFtGRIIHVmlCX6UFS meRE4iFV7Dd8DLcPFhbW5ipd5DLZVdGHDtQzlulj1MGdaiU3I9kQtdGUUpBuDuTYVPMWcxHT7QKOCkIS G9AVPyZkJqZYGMByPdJ30uLU5ND2Ssn78cLkT6IKOlQaChONsoEB57xJespxTzsBHanHiqWB6VQy9+DQ plbmRvYmoNCnhyZWYNCjAgMzcNCjAwMDAwMDAwMDAg AhG3KdXbCh7TOKDuAQWqRCSwGkLsOQYlZCSeESgqYBEyBUD0AxNgWIPcHPJdMX2FBpTpFIBeGoF3MLio NNHvQWAlee8XWOIdDTHgNIY7KcEnMEBbQEBbZGibAWUzFCRhFLOqKNUfFNGfZD3QKsNbJMQhHMKzJwUr IVTzBOSdbh7PWBClDCWeVgFtKYVdJGUeQFMdRHfjJY QzLDX2NTR6JQOeRDRrCK1KItWbAJDrFBs3ZXKsNWRxTJFyyz1LJGHkSWSyGWc1SIHwYXEkWFQzPSuyGZ BmANYeGUV6YQJiESMsVU5WAfGkRKHpKYS8WLGwWRUtXESqkf9SRBLcCFIcQNdeNTXjFPDgVAFtEFqvKU GtIUGrJKWbOTLjHDQaLG4FAmIhNDUoHWYfEJCjSVEi UXItbi8NREApFQNuKsT3TWCmGXUzFRYsHJsyXVLfDXKlRvB2QCMeHIMuPB7MWrJaGCZvWJO7WfOqXBXa WGEfct4UTWRwKYGaQNR4JcNaWHObRFPdRKcvWRYkECX9NQc7PGCdGJYvQG2MDcElLVRnLLF7USPfMWYr QPTsnw3MGGTaOHClWKe8PzOeHQAoZROcMGerJOCuLJ S2NZNtLJVlYZZbJY0AXnChFRWxSRJbIgKxFDRxDTEeuh8VWRTrWMUnCfViZPPjAGLlSKWnCXraBOKqGM A7CJS0FCZjKYClBX4GGaZpWIDaCiahYrGfWWCnPAYhvq6MTNWyQICvTAX1AWItDCZyCRHmVFwyNGRwGJ T0ZZMqAOGaNRWoKJ3XQsBgCZTyBioyNtOnFJEyWBCz mi4UEQZoCPAjGAF9PuJnJVInPCVsSUeaHTQqDBQ3KvBwKXQqBKLhEB5WDnXvIOOmVkDqXphwOWHeKOSi wc0PUNVcROPbDEMkKvSrRAEgBNXsPOicBAJiKZUsXuW2AMKbQMVrKS2MLhMkTYDgAhJ7UCBmDRZpAUIg dk0QbFFprVpzxt9MPOeXHy7VaRckPMR7IZiiOn6qzR BjUoUzFCMSUq2WweJxZVKiTTAYQPyaZASwBUMwTWNwMaP4LBWyBnZdYIa4OibaLdUeEXSiEFK5KNVeYa W3TAVpFiVxEEX9WrKhGHX6RyMeK8JqBPNwY1TbBivgTkV+BP1bJTe+Na9Zi9QyzpG0kcEwZNxhGaF8KE 4GBBOYL5GDOz== ID Date Data Source [id number] 01/24/2020 06:05:29 AM EDT [facility] Name Value Range Interpretation Code Description Data Savi rce(s) Supporting Document(s) Leukocytes [#/volume] in Blood by Automated count 13.1 10*3/uL 4-10 H [facility] Erythrocytes [#/volume] in Blood by Automated count 5.28 10*6/uL 4.6- 6.1 [facility] Hemoglobin [Mass/volume] in Blood 14.7 g/dL 13.5-18 [facility] Hematocrit [Volume Fraction] of Blood by Automated count 45.0 % 4 1-53 [facility] Erythrocyte mean corpuscular volume [Entitic volume] by Auto mated count 85.2 fL 80-96 [facility] Erythrocyte mean corpuscular hemoglobin [Entitic mass] by Automated count 27.9 pg 27-33 [facility] Erythrocyte mean corpuscular hemoglobin concentration [Mass/volume] by Autom[facility] 32.7 g[facility].0[facility] [Ratio] by Automated count 15.5 % 11.5-14.5 H [facility] Platelets [#/volume] in Blood by Automated count 117 10*3/uL 150-400 L [facility] Differential cell count method - Blood [facility] Neutrophils/100 leukocytes in Blood by Automated count 61 % [facility] Lymphocytes/100 leukocytes in Blood by Automated count 28 % [facility] Monocytes/100 leukocytes in Blood by Automated count 7 % [facility] Eosinophils/100 leukocytes in Blood by Automated count 3 % [facility] Basophils/100 leukocytes in Blood by Automated count 1 % [facility] Neutrophils [#/volume] in Blood by Automated count 8.07 10*3/uL 1.8-7 .0 H [facility] Lymphocytes [#/volume] in Blood by Automated count 3.68 10*3/uL 1.2-4 .0 [facility] Monocytes [#/volume] in Blood by Automated count 0.85 10*3/uL 0-0.8 H [facility] Eosinophils [#/volume] in Blood by Automated count 0.40 10*3/uL 0-0.5 [facility] Basophils [#/volume] in Blood by Automated count 0.10 10*3/uL 0-0.2 [facility] Nucleated erythrocytes/100 leukocytes [Ratio] in Blood by Automated count 0 /100{WBCs} 0-0 [facility] ID Date Data Source [id number] 01/24/2020 06:14:04 AM [facility] Name Value Range Interpretation Code Description Data Savi rce(s) Supporting Document(s) Heparin unfractionated [Units/volume] in Platelet poor plasma by Chromogenic method [facility] ID Date Data Source [id number] 01/24/2020 06:23:04 AM [facility] Value Range Interpretation Code Description Data Savi rce(s) Supporting Document(s) Albumin [Mass/volume] in Serum or Plasma by Bromocresol green (BCG) dye binding method 3.4 g/dL 3.5-5.2 L [facility] Bilirubin.total [Mass/volume] in Serum or Plasma 0.9 mg/dL <1.2 [facility] Calcium [Mass/volume] in Serum or Plasma 8.6 mg/dL 8.6-10.0 [facility] Chloride [Moles/volume] in Serum or Plasma 102 mmol/L 98-107 [facility] Creatinine [Mass/volume] in Serum or Plasma 1.53 mg/dL 0.70-1.20 H [facility] Glucose [Mass/volume] in Serum or Plasma 116 mg/dL 70-140 [facility] Alkaline phosphatase [Enzymatic activity/volume] in Serum or Plasma 79 U/L 40-129 [facility] Potassium [Moles/volume] in Serum or Plasma 4.3 mmol/L 3.4-5.1 [facility] Protein [Mass/volume] in Serum or Plasma 7.2 g/dL 6.4-8.3 [facility] Sodium [Moles/volume] in Serum or Plasma 136 mmol/L 136-145 [facility] Aspartate aminotransferase [Enzymatic activity/volume] in Serum or Plasma 17 U/L <40 [facility] Urea nitrogen [Mass/volume] in Serum or Plasma 15 mg/dL 6-20 [facility] Osmolality of Serum or Plasma by calculation 284 mosm/kg 275-300 [facility] Creatinine/Urea nitrogen [Mass Ratio] in Serum or Plasma 10 [facility] Bicarbonate [Moles/volume] in Serum 22 mmol/L 22-29 [facility] Alanine aminotransferase [Enzymatic activity/volume] in Seru m or Plasma 16 U/L <41 [facility] Anion gap 3 in Serum or Plasma 12 mmol/L 8-15 [facility] Albumin/Globulin [Mass Ratio] in Serum or Plasma 0.9 [facility] Glomerular filtration rate/1.73 sq M pre dicted among non-blacks [Volume Rate/Area] in Serum or Plasma by Creatinine-based formula (MDRD) 53 mL/min/1.73m2 >60 L [facility] Glomerular filtration rate/1.73 sq M pre dicted among blacks [Volume Rate/Area] in Serum or Plasma by Creatinine-based formula (MDRD) 61 mL/min/1.73m2 >60 [facility] ID Date Data Source [id number] 01/24/2020 06:23:04 AM [facility] Name Value Range Interpretation Code Description Data Savi rce(s) Supporting Document(s) Magnesium [Mass/volume] in Serum or Plasma 2.0 mg/dL 1.6-2.6 [facility] ID Date Data Source [id number] 01/24/2020 06:23:04 AM [facility] Name Value Range Interpretation Code Description Data Savi rce(s) Supporting Document(s) Phosphate [Mass/volume] in Serum or Plasma 3.7 mg/dL 2.5-4.5 [facility] ID Date Data Source [id number] 01/24/2020 06:23:04 AM [facility] Name Value Range Interpretation Code Description Data Savi rce(s) Supporting Document(s) Troponin T.cardiac [Mass/volume] in Serum or Plasma 0.03 ng/mL <0.01 H [facility] ID Date Data Source [id number] 01/24/2020 12:02:46 AM [facility] Service Cmnt XXX-Imp : NoneMicroorganism XXX Cult : 2019 nCoV Real-Time RT-PCR: NOT DETECTEDTest performed using the [employer] Xpert Xpress SARS-CoV-2 assay. This test is only for use under the Food and Drug Administration's Emergency Use Authorization. Additional information is available on the following FDA websites for health care providers and patients. https://www.fda.gov/media/446464/download , https://www.fda.gov/media/495681/download Name Value Range Interpretation Code Description Data Savi rce(s) Supporting Document(s) ID Date Data Source [id number] 01/23/2020 10:41:00 PM [facility] Cmnt XXX-Imp : NoneMicroorganism XXX Cult : 2019 nCoV Real-Time RT-PCR: NOT DETECTEDTest performed using the Cep[employer] Xpert Xpress SARS-CoV-2 assay. This test is only for use under the Food and Drug Administration's Emergency Use Authorization. Additional information is available on the following FDA websites for health care providers and patients. https://www.fda.gov/media/270894/download , https://www.fda.gov/media/290215/download Name Value Range Interpretation Code Description Data Savi rce(s) Supporting Document(s) Microorganism identified in Unspecified specimen by [facility] This lab was ordered by [facility] and reported by [facility] ID Date Data Source [id number] 01/24/2020 12:00:03 AM [facility] Name Value Range Interpretation Code Description Data Savi rce(s) Supporting Document(s) Leukocytes [#/volume] in Blood by Automated count 15.1 10*3/uL 4-10 H [facility] Erythrocytes [#/volume] in Blood by Automated count 4.98 10*6/uL 4.6- 6.1 [facility] Hemoglobin [Mass/volume] in Blood 14.3 g/dL 13.5-18 [facility] Hematocrit [Volume Fraction] of Blood by Automated count 42.3 % 4 1-53 [facility] Erythrocyte mean corpuscular volume [Entitic volume] by Auto mated count 84.9 fL 80-96 [facility] Erythrocyte mean corpuscular hemoglobin [Entitic mass] by Automated count 28.7 pg 27-33 [facility] Erythrocyte mean corpuscular hemoglobin concentration [Mass/volume] by [facility] 33.8 g[facility] [Ratio] by Automated count 15.4 % 11.5-14.5 H [facility] Platelets [#/volume] in Blood by Automated count 124 10*3/uL 150-400 L [facility] Differential cell count method - Blood [facility] Neutrophils/100 leukocytes in Blood by Automated count 66 % [facility] Lymphocytes/100 leukocytes in Blood by Automated count 25 % [facility] Monocytes/100 leukocytes in Blood by Automated count 5 % [facility] Eosinophils/100 leukocytes in Blood by Automated count 3 % [facility] Basophils/100 leukocytes in Blood by Automated count 1 % [facility] Neutrophils [#/volume] in Blood by Automated count 9.96 10*3/uL 1.8-7 .0 H [facility] Lymphocytes [#/volume] in Blood by Automated count 3.85 10*3/uL 1.2-4 .0 [facility] Monocytes [#/volume] in Blood by Automated count 0.80 10*3/uL 0-0.8 [facility] Eosinophils [#/volume] in Blood by Automated count 0.43 10*3/uL 0-0.5 [facility] Basophils [#/volume] in Blood by Automated count 0.09 10*3/uL 0-0.2 [facility] Nucleated erythrocytes/100 leukocytes [Ratio] in Blood by Automated count 0 /100{WBCs} 0-0 [facility] ID Date Data Source [id number] 01/23/2020 10:27:27 PM EDT [facility] Name Value Range Interpretation Code Description Data Savi rce(s) Supporting Document(s) Troponin I.cardiac [Mass/volume] in Blood 0.08 ng/mL 0.00-0.08 [facility] ID Date Data Source [id number] 01/23/2020 10:32:07 PM [facility] Name Value Range Interpretation Code Description Data Savi rce(s) Supporting Document(s) Leukocytes [#/volume] in Blood by Automated count 4-10 [facility] CALLED TO YOGESH PRADHAN RN EER [id number] BY [id number] Erythrocytes [#/volume] in Blood by Automated count 4.6-6. 1 [facility] Hemoglobin [Mass/volume] in Blood 13.5-18 [facility] Hematocrit [Volume Fraction] of Blood by Automated count 4 1-53 [facility] Erythrocyte mean corpuscular volume [Entitic volume] by Automate d count 80-96 [facility] Erythrocyte mean corpuscular hemoglobin [Entitic mass] by Au tomated count 27-33 [facility] Erythrocyte mean corpuscular hemoglobin concentration [Mass/volume] [facility] 32[facility] width [Ratio] by Automated count 11.5-14.5 [facility] Platelets [#/volume] in Blood by Automated count 150-400 [facility] Sample quality of Dried blood spot [facility] Differential cell count method - Blood [facility] ID Date Data Source [id number] 01/23/2020 10:44:22 PM [facility] Value Range Interpretation Code Description Data Savi rce(s) Supporting Document(s) Heparin unfractionated [Units/volume] in Platelet poor plasma by Chromogenic method 0.80 U/ml [facility] al ID Date Data Source 01/23/2020 10:55:12 PM [facility] Name Value Range Interpretation Code Description Data Savi rce(s) Supporting Document(s) Bicarbonate [Moles/volume] in Serum 25 mmol/L 22-29 [facility] Chloride [Moles/volume] in Serum or Plasma 102 mmol/L 98-107 [facility] Creatinine [Mass/volume] in Serum or Plasma 1.50 mg/dL 0.70-1.20 H [facility] Glucose [Mass/volume] in Serum or Plasma 110 mg/dL 70-140 [facility] Potassium [Moles/volume] in Serum or Plasma 4.3 mmol/L 3.4-5.1 [facility] Sodium [Moles/volume] in Serum or Plasma 139 mmol/L 136-145 [facility] Urea nitrogen [Mass/volume] in Serum or Plasma 15 mg/dL 6-20 [facility] Anion gap 3 in Serum or Plasma 12 mmol/L 8-15 [facility] Osmolality of Serum or Plasma by calculation 289 mosm/kg 275-300 [facility] Creatinine/Urea nitrogen [Mass Ratio] in Serum or Plasma 10 [facility] Calcium [Mass/volume] in Serum or Plasma 8.4 mg/dL 8.6-10.0 L [facility] Glomerular filtration rate/1.73 sq M pre dicted among non-blacks [Volume Rate/Area] in Serum or Plasma by Creatinine-based formula (MDRD) 54 mL/min/1.73m2 >60 L [facility] Glomerular filtration rate/1.73 sq M pre dicted among blacks [Volume Rate/Area] in Serum or Plasma by Creatinine-based formula (MDRD) 62 mL/min/1.73m2 >60 [facility] ID Date Data Source [id number] 01/15/2020 02:06:57 PM EDT [facility] Measurements & CalculationsHeight: 74 inches [...] a dentist? NoIntake performed by: Binta Sanchez , January 15, 2020 2:10 PMRate Your HealthIn [...] Race: White Ethnicity: Not or Preferred Language: EnglishMonFreight Farms and [employer] In the past year, have you or [...] medications as well.Was getting some relief from Wishek 5 mg but this is less effective than it used to be.No adverse effects from Wishek.HPI performed by: John Martinez MD, January 15, 2020 2:57 PMTransitions of Care InboundProblem ReviewProblem List was reviewed and/or updated during this visit.Medication Reconciliation & ReviewMedication List was reviewed and/or updated during this visit, including review of any inak-vaq-gurpczv medications, herbal therapies, and/or supplements.Allergy ReviewAllergy List [...] & Plan Problems:Assessed:Pain in right hip (ICD-719.45) (QRK23-Y22.551) Assessment: Instructions: Fair but lessening control.Temporarly increase the Wishek from 5 mg to 7.5 mg.The ultimate answer is weight loss (through bariatric surgery) and Ortho surgery although this is delayed by the pandemic.Recheck one month, sooner as needed.Patient Instructions/Care Plan: Pain in right hip: Fair but lessening control.Temporarly increase the Wishek from 5 mg to 7.5 mg.The ultimate [...] John Martinez MD Method used: Electronically to [facility] (retail) [address] [place] [address] Note to Pharmacy: Route: ORAL; RxID: [id number] signed by John Martinez MD on 01/15/2020 at 3:18 PM Name Value Range Interpretation Code Description Data Savi rce(s) Supporting Document(s) ID Date Data Source [id number] 11/20/2019 01:34:12 PM EDT [facility] Measurements & CalculationsWeight: 470 pounds 213.64 kg Vital Signs performed by: Miguel Tafoya MA, November 20, 2019 1:35 PMAssessment & Plan Orders:[id number] Vst-Est Level I [CPT-47027] Labs In-House Name Value Range Interpretation Code Description Data Savi rce(s) Supporting Document(s) ID Date Data Source [id number] 11/10/2019 08:47:59 AM EDT [facility] Measurements & CalculationsHeight: 74 inches [...] healthcare provider? Yes - dr cruz, dr sultanaHamihaela you seen a dentist? NoRate Your HealthIn [...] for clearance.no other concerns at this time. IMariano MA, am scribing for, and in the [...] Problems:Added: Ex-smoker (ICD-V15.82) (ICD10- Z87.891)Ankle edema (ICD-719.07) (CQB21-V34.0)Assessed:Obesity, unspecified (NEN16-P26.9) Assessment: for by pass surgeryAssessment not SavedEx-smoker (FKR02-T15.891): Medication Changes:New Prescription:EQL NICOTINE POLACRILEX 2 MG MOUTH/THROAT LOZENGE-one lozenge slowly dissolved in mouth q2h prn Qty: 150[Lozenge] Refills: 1 Method: ElectronicOrders:Adult - Ofc Vst, EST, Level III [CPT-22614] COMP METABOLIC PANEL [CPT-20870] CBC W/DIFF [CPT-37847] HgBA1c [CPT-91756] LIPID PANEL [CPT-56131] TSH [CPT-79385] Vitamin D 250H Unspecified [CPT-70396] Medications:EQL NICOTINE POLACRILEX 2 MG MOUTH/THROAT LOZENGE (NI COTINE POLACRILEX) one lozenge slowly dissolved in mouth q2h prn #150[Lozenge] x 1 Route:MOUTH/THROAT Entered and Authorized by: Candelario Casillas DO Method used: Electronically to [facility] (retail) [address] [place] [address] Note to Pharmacy: Route: MOUTH/THROAT; RxID: [id number]] Name Value Range Interpretation Code Description Data Savi rce(s) Supporting Document(s) ID Date Data Source [id number] 11/08/2019 09:58:45 AM EDT [facility] [place], [place] [address]Xui# Surgical Pathology ReportAccession #:[id number](s) ReceivedA: Antrum bxs, r/o H. pyloriClinical Diagnosis and HistoryEsophageal reflux DIAGNOSISSTOMACH, ANTRUM, BIOPSY: MILD CHRONIC GASTRITIS. NEGATIVE FOR HELICOBACTER PYLORI BY IMMUNOSTAIN. Gross DescriptionReceived in formalin labeled "antrum biopsies rule out H. pylori" are twotan-pink irregular fragments of tissue measuring 0.3 and 0.7 cm. Entirelysubmitted as A1. 1 + 1. Processed at [facility], Histopathology, [address], [place], [address].jgllmr/jjf Reported: 11/08/2019Electronically Signed Out By Aston Rojas MD [facility] This report may include immunohistochemical or in-situ hybridizationresults. Testing was developed and the performance characteristicsdetermined by [facility] as required by CLIA '88. The FDAhas determined that approval for specific use is not necessary forclinical use. The quality of Hematoxylin and Eosin stains and asapplicable, for all immunohistochemical and/or special stains, in cludingpositive and negative controls, were reviewed and considered appropriate.ICD codes K21.9 K29.30CPT codesA: 37721C, 52359z Name Value Range Interpretation Code Description Data Savi rce(s) Supporting Document(s) ID Date Data Source [id number] 11/06/2019 09:31:43 AM EDT [facility] NT INFORMATIONPatient MRN Name Date of Age Gend*PT [id number] Wei Rothman 1970 49 years M OPPT Location Admission Date/Time [facility] [place] [facility] --- Himanshu Guerrier MD([id number]) EPI ID CSN Admitting Provider [id number] Himanshu Guerrier MD([id number])Endoscopic Gastroduodenoscopy Procedure NotePatient: Wei BryansukhjinderSurgery Date: November [...] Value Range Interpretation Code Description Data [facility](s) Supporting Document(s) ID Date Data Source [id number] 11/06/2019 08:47:46 AM EDT [facility]PAT[facility] NT INFORMATIONPatient MRN Name Date of Age Gend*PT [id number] Wei Rothman 1970 49 years M OPPT Location Admission Date/Time Visit [facility] [place] [facility]/06[facility] 0725 --- Himanshu Guerrier MD([id number]) EPI ID CSN Admitting Provider [id number] Himanshu Guerrier MD([id number])H&P reviewed. The patient was examined and there are no changes to the H&P.Himanshu Guerrier MD8:47 AM Name Value Range Interpretation Code Description Data Savi dina(s) Supporting Document(s) ID Date Data Source [id number] 11/06/2019 08:47:41 AM EDT [facility] HospitalPATIE NT INFORMATIONPatient MRN Name Date of Age Gend*PT [id number] Wei Rothman 1970 49 years M OPPT Location Admission Date/Time Visit ID [facility] 11/06[facility]19 0725 --- Himanshu Guerrier MD([id number]) EPI ID CSN Admitting Provider [id number] Himanshu Guerrier MD([id number])Pre-Procedure History and Physical:Past Medical History:Diagnosis Date Arthritis [...] rce(s) Supporting Document(s) ID Date Data Source [id number] 10/31/2019 10:21:01 AM EST [facility] Labs In-House Blood TestsDate/Time Colle cted: October 31, 2019 8:20 AMTest Result Reference Range Normal ValueComments: blood draw done in office, taken from left hand, tolerated well.Emely Schmitt, October 31, 2019 10:21 AMAssessment & Plan Orders:[id number] Vst-Est Level I [CPT-09510] 39286 - Venipuncture [CPT-51999] Name Value Range Interpretation Code Description Data Savi rce(s) Supporting Document(s) ID Date Data Source [id number] 10/31/2019 08:20:00 AM EST [facility] Name Value Range Interpretation Code Description Data Savi rce(s) Supporting Document(s) BG FASTING 206 mg/dL 70-100 H [facility] ID Date Data Source [id number] 10/31/2019 08:20:00 AM EST [facility] Name Value Range Interpretation Code Description Data Savi rce(s) Supporting Document(s) HGBA1C 6.1 % N [facility] ID Date Data Source [id number] 10/20/2019 01:09:31 PM EST [facility] Measurements & CalculationsWeight: 454 pounds 7 oz. 206.56 kg Vital Signs performed by: Miguel Tafoya MA, October 20, 2019 1:21 PMAssessment & Plan Orders:[id number] Vst-Est Level I [CPT-95580] Name Value Range Interpretation Code Description Data Savi rce(s) Supporting Document(s) ID Date Data Source [id number] 09/20/2019 08:33:41 PM EST [facility] Name Value Range Interpretation Code Description Data Savi rce(s) Supporting Document(s) HEMOGLOBIN A1C @ 5.6 % (4.0-6.0) [facility] Performed using [employer] [place] immunoassa y.Care must be taken when interpreting OnS1expkbwbu in patients with a hemoglobin variantor decreased erythrocyte lifespan. Values 5.7 - 6.4% suggest prediabetes.Values >=6.5% are diagnostic for diabetes.REFERENCE: DIABETES CARE 2018: 41(S13-S27). EST AVERAGE GLUCOSE 114 mg/dL [facility] ID Date Data Source [id number] 09/20/2019 08:01:07 PM EST [facility] Name Value Range Interpretation Code Description Data Savi rce(s) Supporting Document(s) TSH,ULTRASENSITIVE @ 4.670 mIU/L (0.360-4.170) H [facility] Procedure Social History Code Duration Value Status Description Data Source(s ) 05/14/2020 12:00:00 AM EDT Patient is a current smoker, smokes every day completed Patient is a current smoker, smokes every day [facility] ( [facility]) Alcohol intake 01/24/2020 12:00:00 AM EDT Ex-drinker (finding) comp leted Ex- drinker (finding) [facility] Smoking 01/24/2020 12:00:00 AM EDT Current some day smoker com pleted Current some day smoker [facility] Alcohol intake 11/06/2019 12:00:00 AM EDT Never completed [facility] Smoking 11/06/2019 12:00:00 AM EDT Current some day smoker com pleted Current some day smoker [facility] Vital Signs ID Date Data Source UNK Name Value Range Interpretation Code Description Data Source(s) Body weight 8018 [oz_av] 8018 [oz_av] [facility] ([facility]) Systolic blood pressure 119 mm[Hg] 119 mm[Hg] [facility] Body mass index (BMI) [Ratio] 64.3 kg/m2 64.3 k g/m2 [facility] ([facility]) Body height 74 [in_i] 74 [in_i] [facility] ([facility]) Diastolic blood pressure 76 mm[Hg] 76 mm[Hg] [facility] ([facility]) Body surface area Derived from formula 3.14 m2 3.14 m2 [facility] Body weight 220.903 kg 220.[address] [facility] ([facility]) [place] body weight 184 [lb_av] 184 [lb_av] [facility] ([facility]) Body mass index (BMI) [Ratio] 64.2 kg/m2 64.2 k g/m2 [facility] ([facility]) Body weight 487.00 [lb_av] 487.00 [lb_av] [facility] ([facility]) [place] Body height 73 [in_i] 73 [in_i] [facility]) 6'1" Body temperature 96.8 [degF] 96.8 [degF] [facility] ([facility]) Oxygen saturation in Arterial blood by Pulse oximetry 97 % 97 % [facility] ([facility]) Heart rate 122 /min 122 /min [facility] ([facility]) Diastolic blood pressure 80 mm[Hg] 80 mm[Hg] [facility] ([facility]) Systolic blood pressure 130 mm[Hg] 130 mm[Hg] [facility] Body weight 7472 [oz_av] 7472 [oz_av] [facility] ([facility]) Systolic blood pressure 111 mm[Hg] 111 mm[Hg] A [facility] ([facility]) Body mass index (BMI) [Ratio] 60 kg/m2 60 kg/ m2 [facility] ([facility]) Body height 74 [in_i] 74 [in_i] [facility] ([facility]) Diastolic blood pressure 61 mm[Hg] 61 mm[Hg] [facility] ([facility]) Body weight 7472 [oz_av] 7472 [oz_av] [facility] ([facility]) Systolic blood pressure 111 mm[Hg] 111 mm[Hg] A [facility] ([facility]) Body mass index (BMI) [Ratio] 60 kg/m2 60 kg/ m2 [facility] ([facility]) Body height 74 [in_i] 74 [in_i] [facility] ([facility]) Diastolic blood pressure 61 mm[Hg] 61 mm[Hg] [facility] ([facility]) Body weight 7472 [oz_av] 7472 [oz_av] [facility] ([facility]) Systolic blood pressure 130 mm[Hg] 130 mm[Hg] A [facility] ([facility]) Body mass index (BMI) [Ratio] 60 kg/m2 60 kg/ m2 [facility] ([facility]) Body height 74 [in_i] 74 [in_i] [facility] ([facility]) Diastolic blood pressure 84 mm[Hg] 84 mm[Hg] [facility] ([facility]) Body weight 7472 [oz_av] 7472 [oz_av] [facility] ([facility]) Systolic blood pressure 130 mm[Hg] 130 mm[Hg] A [facility] ([facility]) Body mass index (BMI) [Ratio] 60 kg/m2 60 kg/ m2 [facility] ([facility]) Body height 74 [in_i] 74 [in_i] [facility] ([facility]) Diastolic blood pressure 84 mm[Hg] 84 mm[Hg] [facility] ([facility]) Body weight 7472 [oz_av] 7472 [oz_av] [facility] ([facility]) Systolic blood pressure 130 mm[Hg] 130 mm[Hg] [facility] ([facility]) Body mass index (BMI) [Ratio] 60 kg/m2 60 kg/ m2 [facility] ([facility]) Body height 74 [in_i] 74 [in_i] [facility] ([facility]) Diastolic blood pressure 84 mm[Hg] 84 mm[Hg] [facility] ([facility]) Body surface area Derived from formula 3.14 m2 3.[address] [facility] ([facility]) Body weight 221.073 kg 221.[address] [facility] ([facility]) [place] body weight 184 [lb_av] 184 [lb_av] [facility] ([facility]) Body mass index (BMI) [Ratio] 64.3 kg/m2 64.3 k g/m2 [facility] ([facility]) Body weight 487.38 [lb_av] 487.38 [lb_av] [facility] Body height 73 [in_i] 73 [in_i] [facility] ([facility]) 6'1" Body temperature 96.8 [degF] 96.8 [degF] [facility] ([facility]) Oxygen saturation in Arterial blood by Pulse oximetry 97 % 97 % [facility] ([facility]) Heart rate 102 /min 102 /min [facility] ([facility]) Diastolic blood pressure 88 mm[Hg] 88 mm[Hg] [facility] ([facility]) Systolic blood pressure 142 mm[Hg] 142 mm[Hg] [facility] Body weight 7394.08 [oz_av] 7394.08 [oz_av] [facility] ([facility]) Systolic blood pressure 103 mm[Hg] 103 mm[Hg] A [facility] ([facility]) Body height 74 [in_i] 74 [in_i] [facility] ([facility]) Diastolic blood pressure 71 mm[Hg] 71 mm[Hg] [facility] ([facility]) Body weight 7394.08 [oz_av] 7394.08 [oz_av] [facility] ([facility]) Systolic blood pressure 103 mm[Hg] 103 mm[Hg] [facility] Body height 74 [in_i] 74 [in_i] [facility] ([facility]) Diastolic blood pressure 71 mm[Hg] 71 mm[Hg] [facility] ([facility]) Body weight 7394.08 [oz_av] 7394.08 [oz_av] [facility] ([facility]) Systolic blood pressure 103 mm[Hg] 103 mm[Hg] [facility]) Body height 74 [in_i] 74 [in_i] [facility] ([facility]) Diastolic blood pressure 71 mm[Hg] 71 mm[Hg] [facility] ([facility]) Body weight 7478.4 [oz_av] 7478.4 [oz_av] ATHEN A ([facility]) Systolic blood pressure 121 mm[Hg] 121 mm[Hg] A [facility]) Body height 74 [in_i] 74 [in_i] [facility] ([facility]) Diastolic blood pressure 77 mm[Hg] 77 mm[Hg] [facility] ([facility]) Body weight 7478.4 [oz_av] 7478.4 [oz_av] ATHEN A ([facility]) Systolic blood pressure 121 mm[Hg] 121 mm[Hg] A [facility]) Body height 74 [in_i] 74 [in_i] [facility] ([facility]) Diastolic blood pressure 77 mm[Hg] 77 mm[Hg] [facility] ([facility]) Body weight 7478.4 [oz_av] 7478.4 [oz_av] ATHEN A ([facility]) Systolic blood pressure 121 mm[Hg] 121 mm[Hg] [facility]) Body height 74 [in_i] 74 [in_i] [facility] ([facility]) Diastolic blood pressure 77 mm[Hg] 77 mm[Hg] [facility] ([facility]) Body weight 7465.6 [oz_av] 7465.6 [oz_av] ATHEN A ([facility]) Systolic blood pressure 120 mm[Hg] 120 mm[Hg] A [facility]) Body height 74 [in_i] 74 [in_i] [facility] ([facility]) Diastolic blood pressure 84 mm[Hg] 84 mm[Hg] [facility] ([facility]) Body weight 7465.6 [oz_av] 7465.6 [oz_av] ATHEN A ([facility]) Systolic blood pressure 120 mm[Hg] 120 mm[Hg] A [facility] ([facility]) Body height 74 [in_i] 74 [in_i] [facility] ([facility]) Diastolic blood pressure 84 mm[Hg] 84 mm[Hg] [facility] ([facility]) Body weight 7465.6 [oz_av] 7465.6 [oz_av] ATHEN A ([facility]) Systolic blood pressure 120 mm[Hg] 120 mm[Hg] A [facility] ([facility]) Body height 74 [in_i] 74 [in_i] [facility] ([facility]) Diastolic blood pressure 84 mm[Hg] 84 mm[Hg] [facility] ([facility]) Body weight 7520 [oz_av] 7520 [oz_av] [facility] ([facility]) Body weight 7520 [oz_av] 7520 [oz_av] [facility] ([facility]) Body weight 7520 [oz_av] 7520 [oz_av] [facility] ([facility]) Body weight 7508 [oz_av] 7508 [oz_av] [facility] ([facility]) Systolic blood pressure 144 mm[Hg] 144 mm[Hg] A [facility] ([facility]) Body height 74 [in_i] 74 [in_i] [facility] ([facility]) Diastolic blood pressure 78 mm[Hg] 78 mm[Hg] [facility] ([facility]) Body weight 7508 [oz_av] 7508 [oz_av] [facility] ([facility]) Systolic blood pressure 144 mm[Hg] 144 mm[Hg] A [facility] ([facility]) Body height 74 [in_i] 74 [in_i] [facility] ([facility]) Diastolic blood pressure 78 mm[Hg] 78 mm[Hg] [facility] ([facility]) Body weight 7508 [oz_av] 7508 [oz_av] [facility] ([facility]) Systolic blood pressure 144 mm[Hg] 144 mm[Hg] A [facility] ([facility]) Body height 74 [in_i] 74 [in_i] [facility] ([facility]) Diastolic blood pressure 78 mm[Hg] 78 mm[Hg] [facility] ([facility]) Oxygen saturation in Arterial blood by Pulse oximetry 95 % 95 % [facility] Body temperature 36.44 Sonal 36.44 Sonal [facility] Heart rate 73 /min 73 /min [facility] Diastolic blood pressure 71 mm[Hg] 71 mm[Hg] [facility] Systolic blood pressure 102 mm[Hg] 102 mm[Hg] [facility] Respiratory rate 16 /min 16 /min [facility] Body mass index (BMI) [Ratio] 52.77 kg/m2 52.77 kg/m2 [facility] Body weight 181.439 kg 181.439 kg [facility] Body height 185.4 cm 185.4 cm [facility] Body weight 7271.04 [oz_av] 7271.04 [oz_av] [facility] ([facility]) Body weight 7271.04 [oz_av] 7271.04 [oz_av] [facility] ([facility]) Body weight 7271.04 [oz_av] 7271.04 [oz_av] [facility] ([facility]) ID Date Data Source [id number] 01/31/2020 11:10:09 AM EDT [facility] Name Value Range Interpretation Code Description Data Source(s) WEIGHT RECORDED 460.2 lb 460.2 lb [facility] Body height Measured 73 in 73 in [facility] Patient Treatment Plan of Care Planned Activity Planned Date Details Description Data Source (s) Levothyroxine 02/20/2020 01:00:00 AM EDT [facility] ([facility]) Tylenol 02/20/2020 01:00:00 AM EDT N [facility] ([facility]) Nicotine Mini 2 MG 02/20/2020 01:00:00 [facility] Eliquis 5 MG 02/20/2020 01:00:00 AM EDT N [facility] ([facility]) apixaban 5 MG Oral Tablet 02/07/2020 12:00:00 AM [facility] apixaban 5 MG Oral Tablet 02/03/2020 12:00:00 AM [facility] Eliquis 5 MG 01/30/2020 01:00:00 AM EDT N [facility] ([facility]) Lortab 5-325 MG 01/30/2020 01:00:00 AM EDT [facility] ([facility]) Omeprazole 40 MG 01/30/2020 01:00:00 AM EDT [facility]) Colace 01/30/2020 01:00:00 AM EDT [facility] ([facility]) apixaban 5 MG Oral Tablet 01/27/2020 09:00:00 PM [facility] Acetaminophen 325 MG / Hydrocodone Bitartrate 5 MG Ora l Tablet 01/27/2020 01:06:12 PM [facility] ospital apixaban 5 MG Oral Tablet 01/27/2020 12:00:00 AM [facility] apixaban 5 MG Oral Tablet 01/27/2020 12:00:00 AM [facility] Acetaminophen 325 MG / Hydrocodone Bitartrate 5 MG Ora l Tablet 01/27/2020 12:00:00 AM [facility] ospital apixaban 5 MG Oral Tablet 01/27/2020 12:00:00 AM [facility] apixaban 5 MG Oral Tablet 01/27/2020 12:00:00 AM [facility] Acetaminophen 325 MG / Hydrocodone Bitartrate 5 MG Ora l Tablet 01/27/2020 12:00:00 AM [facility] ospital apixaban 5 MG Oral Tablet 01/27/2020 12:00:00 AM [facility] apixaban 5 MG Oral Tablet 01/27/2020 12:00:00 AM [facility] apixaban 5 MG Oral Tablet 01/27/2020 12:00:00 AM [facility] Omeprazole 40 MG Delayed Release Oral Capsule 12/22/2019 12:00:00 A M EDT [facility] Acetaminophen 325 MG / Hydrocodone Bitartrate 5 MG Ora l Tablet 12/21/2019 12:00:00 AM [facility] ospital Furosemide 40 MG Oral Tablet [facility] ([facility]) Doxycycline Monohydrate 100 MG Oral Capsule [facility] ([facility])
[2020-10-23 01:54] LABS: HEMATOCRIT 36.1 % (42.0-52.0); HEMOGLOBIN 10.8 g/dl (13.5-17.5); MEAN CORPUSCULAR HEMOGLOBIN 25.6 pg (27.0-33.0); MEAN CORPUSCULAR HGB CONC 29.9 g/dl (32.0-36.5); MEAN CORPUSCULAR VOLUME 85.5 fl (80.0-96.0); PLATELET COUNT, AUTOMATED 169 10^3/uL (150-450); RED BLOOD COUNT 4.22 10^6/uL (4.30-6.10); WHITE BLOOD COUNT 14.4 10^3/uL (4.0-10.0)
[2020-10-23 02:14] LABS: ATYPICAL LYMPH 1 % (0-5); LYMPHOCYTES 10 % (16-44); MONOCYTES 5 % (0-5); NEUTROPHILS 84 % (28-66)
[2020-10-23 02:15] LABS: ERYTHROCYTE SEDIMENTATION RATE 79 mm/hr (0-15)
[2020-10-23 02:16] LABS: ANISOCYTOSIS 1+
[2020-10-23 02:25] LABS: PLATELET ESTIMATE NORMAL (NORMAL)
[2020-10-23 02:30] LABS: ALBUMIN 1.8 GM/DL (3.2-5.2); BILIRUBIN,DIRECT 0.4 MG/DL (0.0-0.2); BILIRUBIN,TOTAL 0.9 MG/DL (0.2-1.0); C REACTIVE PROTEIN QUANTITATIV 35.9 MG/DL (0.00-0.30); CREATININE FOR GFR 1.76 MG/DL (0.70-1.30); GLOMERULAR FILTRATION RATE 44.2 (>60); POTASSIUM SERUM 3.9 MEQ/L (3.5-5.1)
[2020-10-23] MEDS ORDERED: CEFTAROLINE FOSAMIL 600 MG in D5W MINI-BAG PLUS 50 ML IV ONE (03:30)
[2020-10-23] MEDS ORDERED: NS 500 ML IV ONE (03:30)
--- OUTSIDE RECORDS SUMMARY | 2020-10-23 03:31 | CCD ---
Author Author [facility] Organization [facility] Address Unknown Phone Unavailable Care Team Providers Care Aircraft De Icer Installer Name Role Phone Taye AMEZCUA Unavailable Unavailable [...] Unavailable Unavailable Anika Martinez MD Unavailable Unavailable Ankia Martinez MD Unavailable Unavailable Anika Martinez MD [...] Unavailable Unavailable Anika Martinez MD Unavailable Unavailable Ainka Martinez MD Unavailable Unavailable Anika Martinez MD [...] TURPIN MD Unavailable Unavailable ROSE, JAVIER ANNA BRAILLE CODER-C Unavailable Unavailable ROSE, JAVIER ANNA BRAILLE CODER-C Unavailable Unavailable ROSE, JAVIER ANNA BRAILLE CODER-C Unavailable Unavailable ROSE, JAVIER ANNA BRAILLE CODER-C Unavailable Unavailable ROSE, JAVIER ANNA BRAILLE CODER-C Unavailable Unavailable ROSE, JAVIER ANNA BRAILLE CODER-C Unavailable Unavailable ROSE, JAVIER ANNA BRAILLE CODER-C Unavailable Unavailable ROSE, JVAIER ANNA BRAILLE CODER-C Unavailable Unavailable ROSE, JAVIER ANNA BRAILLE CODER-C Unavailable Unavailable ROSE, JAVIER ANNA BRAILLE CODER-C Unavailable Unavailable ROSE, JAVIER ANNA BRAILLE CODER-C Unavailable Unavailable ROSE, JAVIER ANNA BRAILLE CODER-C Unavailable Unavailable ROSE, JAVIER ANNA BRAILLE CODER-C Unavailable Unavailable ROSE, JAVIER ANNA BRAILLE CODER-C Unavailable Unavailable ROSE, JAVIER ANNA BRAILLE CODER-C Unavailable Unavailable ROSE, JAVIER ANNA BRAILLE CODER-C Unavailable Unavailable Jose Guerrier MD Unavailable Unavailable [...] Unavailable Dominik PEREZ MD Unavailable Unavailable Dominik EPREZ MD Unavailable Unavailable Dominik PEREZ MD Unavailable [...] Unavailable Unavailable Dominik PEREZ MD Unavailable Unavailable Dominki PEREZ MD Unavailable Unavailable Dominik PEREZ MD [...] Unavailable Obradovic, Vladan Unavailable Unavailable Mikey, Lucy BRAILLE CODER BRAILLE CODER Unavailable Unavailable Mikey, A Lucy BRAILLE CODER Unavailable Unavailable Mikey, A Lucy BRAILLE CODER Unavailable Unavailable Mikey, A Lucy BRAILLE CODER Unavailable Unavailable Mikey, A Lucy BRAILLE CODER Unavailable Unavailable Mikey, A Lucy BRAILLE CODER Unavailable Unavailable Mikey, A Lucy BRAILLE CODER Unavailable Unavailable Mikey, A Lucy BRAILLE CODER Unavailable Unavailable Mikey, A Lucy BRAILLE CODER Unavailable Unavailable Mikey, A Lucy BRAILLE CODER Unavailable Unavailable Mikey, A Lucy BRAILLE CODER Unavailable Unavailable Mikey, A Lucy BRAILLE CODER Unavailable Unavailable Mikey, A Lucy BRAILLE CODER Unavailable Unavailable Mikey, A Lucy BRAILLE CODER Unavailable Unavailable Mikey, A Lucy BRAILLE CODER Unavailable Unavailable Mikey, A Lucy BRAILLE CODER Unavailable Unavailable Mikey, A Lucy BRAILLE CODER Unavailable Unavailable Mikey, A Lucy BRAILLE CODER Unavailable Unavailable Mikey, A Lucy BRAILLE CODER Unavailable Unavailable Mikey, A Lucy BRAILLE CODER Unavailable Unavailable Mikey, A Lucy BRAILLE CODER Unavailable Unavailable Mikey, A Lucy BRAILLE CODER Unavailable Unavailable Mikey, A Lucy BRAILLE CODER Unavailable Unavailable Mikey, A Lucy BRAILLE CODER Unavailable Unavailable Mikey, A Lucy BRAILLE CODER Unavailable Unavailable Mikey, A Lucy BRAILLE CODER Unavailable Unavailable Mikey, A Lucy BRAILLE CODER Unavailable Unavailable Mikey, A Lucy BRAILLE CODER Unavailable Unavailable Mikey, A Lucy BRAILLE CODER Unavailable Unavailable Re-disclosure Warning The records that [...] is protected by Article 27-F of the [facility] Public Health law. If you continue you may have access to information: Regarding HIV / AIDS; Provided by facilities licensed or operated by the [facility] Office of Mental Health; or Provided by the [facility] Office for People With Developmental Disabilities. If such information is present, then the following [facility] mandated warning applies: This information has been [...] law may result in a fine or detention sentence or both. A general authorization for the release of medical or other information is NOT sufficient authorization for further disc losure. Allergies and Adverse Reactions Type Description Substance Reaction Status Data Source(s ) Soma Soma Soma active [facility] ([facility]) Drug Class NO KNOWN ALLERGIES NO KNOWN ALLERGIES [facility] DRUG INGREDI CARISOPRODOL CARISOPRODOL [facility] Propensity to adverse reactions CARISOPRODOL Carisoprodol Hives High Facial Swelling High Active [facility] High High Encounters Encounter Providers Location Date Indications Data Source(s ) John Martinez MD: [address] [place] [phone], Ph. Attender: John Martinez MD [facility] Medical 08/06/2020 12:00:00 AM EST [facility] ([facility]) John Martinez MD: [address] [place] [phone], Ph. Attender: John Martinez MD [facility] Medical 07/19/2020 12:00:00 AM EST [facility] ([facility]) John Martinez MD: [address] [place] [phone], Ph. Attender: John Martinez MD [facility] Medical 07/19/2020 12:00:00 AM EST [facility] ([facility]) Outpatient [address] [place] [address]-Mobile Integration Team 07/18/2020 12:00:00 AM EST [facility] ([facility]) Patient admitted. John Martinez MD: [address] [place] [phone], Ph. Attender: John Martinez MD [facility] Medical 06/20/2020 12:00:00 AM EDT [facility] ([facility]) John Martinez MD: [address] [place] [phone], Ph. Attender: John Martinez MD [facility] Medical 06/20/2020 12:00:00 AM EDT [facility] ([facility]) John Martinez MD: [address] [place] [phone], Ph. Attender: John Martinez MD [facility] Medical 06/20/2020 12:00:00 AM EDT [facility] ([facility]) Outpatient Attender: DAKOTAH SAMUELS 06/19/2020 03:20:00 P M EDT [facility] Outpatient Attender: DAKOTAH CLAIRE FP 05/21/2020 08:17:00 A M EDT [facility] Outpatient Attender: DAKOTAH CLAIRE FP 05/19/2020 04:18:01 P M EDT [facility] Outpatient Attender: Lucy CLAIRE FP 05/19/2020 04:1 8:01 PM EDT [facility] Outpatient Attender: ANNA ROSE [place]/Nuria/Jim/Taye miller 05/14/2020 01:15:00 PM EDT [facility] Outpatient Attender: Lucy CLAIRE FP 05/13/2020 11:5 8:02 AM EDT [facility] Outpatient Attender: DAKOTAH CLAIRE FP 05/08/2020 12:28:01 P M EDT [facility] Outpatient Attender: DAKOTAH CLAIRE FP 03/14/2020 09:12:00 A M EDT [facility] Outpatient Attender: DAKOTAH MCCORMACKP FP 03/12/2020 02:37:00 P M EDT [facility] Outpatient Attender: DAKOTAH CLAIRE FP 03/08/2020 09:07:02 A M EDT [facility] Outpatient Attender: DAKOTAH CLAIRE FP 02/21/2020 03:28:08 P M EDT [facility] Outpatient Attender: DAKOTAH CLAIRE FP 02/16/2020 09:04:01 A M EDT [facility] Outpatient Attender: Lucy CLAIRE FP 02/15/2020 09:5 7:00 AM EDT [facility] Outpatient Attender: DAKOTAH MCCORMACKP FP 02/15/2020 08:36:01 A M EDT [facility] Outpatient Attender: DAKOTAH CLAIRE FP 02/15/2020 07:50:00 A M EDT [facility] Outpatient Attender: Lucy CLAIRE FP 02/08/2020 10:1 0:01 AM EDT [facility] Outpatient Attender: Lucy CLAIRE FP 02/08/2020 08:5 4:03 AM EDT [facility] Outpatient Attender: DAKOTAH CLAIRE FP 02/08/2020 08:54:02 A M EDT [facility] Outpatient Referrer: DYANA STEPHENS MD 02/08/2020 05:55:00 AM EDT [facility] Outpatient Attender: DAKOTAH CLAIRE FP 02/07/2020 08:20:01 A M EDT [facility] Outpatient Attender: DAKOTAH SAMUELS 02/06/2020 01:48:01 P M EDT [facility] Outpatient Attender: DAKOTAH SAMUELS 02/05/2020 02:36:00 P M EDT [facility] Outpatient Attender: Lucy SAMUELS 02/05/2020 02:3 5:01 PM EDT [facility] Outpatient Attender: DAKOTAH SAMUELS 02/02/2020 02:43:00 P M EDT [facility] Outpatient Attender: Lucy SAMUELS 01/31/2020 07:2 3:02 AM EDT [facility] 01/30/2020 01:00:00 AM EDT - 020 09:21:39 AM EDT [facility]) Outpatient Attender: Lucy SAMUELS 01/28/2020 10:1 0:01 PM EDT [facility] Outpatient Attender: Lucy SAMUELS 01/25/2020 11:4 1:03 AM EDT [facility] Inpatient Attender: HARLEY Bro er: WANDA FRY MDAttender: MAYCO AMEZCUAAdmitter: HARLEY TORRESReferrer: WANDA FRY MDConsultant: DYANA PEREZ MD [id number] 01/23/2020 12:00:00 AM EDT - 01/27/2020 04:57:00 PM EDT Other pulmonary embolism without acute cor pulmonale [facility] Other pulmonary embolism without acute c or pulmonale Patient discharged. Outpatient Attender: DAKOTAH SAMUELS 01/18/2020 11:38:00 A M EDT [facility] Outpatient Attender: Lucy SAMUELS 01/15/2020 03:1 9:01 PM EDT [facility] Outpatient Attender: DAKOTAH SAMUELS 01/15/2020 01:41:00 P M EDT [facility] Outpatient Attender: DAKOTAH SAMUELS 01/08/2020 02:48:01 P [facility] Outpatient Attender: ORTEGA BROOKS MD 01/08/2020 09:47:02 A [facility] Outpatient Attender: ORTEGA BROOKS MD 12/20/2019 01:05:00 P [facility] Outpatient Attender: ORTEGA BROOKS MD 11/27/2019 11:35:01 A [facility] Outpatient Attender: ORTEGA BROOKS MD 11/24/2019 09:49:00 A [facility] Outpatient Attender: ORTEGA BROOKS MD 11/22/2019 08:01:01 A [facility] Outpatient Attender: ORTEGA BROOKS MD 11/21/2019 10:27:01 A [facility] Outpatient Attender: ORTEGA BROOKS MD 11/20/2019 01:04:00 P [facility] Outpatient Attender: ORTEGA BROOKS MD 11/16/2019 01:46:00 P [facility] Outpatient Attender: ORTEGA BROOKS MD 11/10/2019 09:22:01 A [facility] Outpatient Attender: ORTEGA BROOKS MD 11/10/2019 09:18:03 A [facility] Outpatient Attender: ORTEGA BROOKS MD 11/10/2019 09:18:02 A [facility] Outpatient Attender: ORTEGA BROOKS MD 11/10/2019 09:18:02 A [facility] Outpatient Attender: ORTEGA BROOKS MD 11/10/2019 08:42:00 A [facility] Outpatient Attender: ORTEGA BROOKS MD 11/09/2019 11:20:58 A [facility] Outpatient Attender: ORTEGA BROOKS MD 10/31/2019 12:38:02 P [facility] Outpatient Attender: ORTEGA BROOKS MD 10/31/2019 09:48:01 A [facility] Inpatient Attender: Tracey TalaveraAdmitter: Tracey stack [email or web address] 10/31/2019 09:29:47 AM EST [facility] Outpatient Attender: ORTEGA BROOKS MD 10/31/2019 07:39:01 A [facility] Outpatient Attender: ORTEGA BROOKS MD 10/31/2019 07:38:01 A [facility] Outpatient Attender: ORTEGA BROOKS MD FP 10/30/2019 01:42:01 P [facility] Outpatient Attender: ORTEGA BROOKS MD 10/25/2019 07:55:01 A [facility] Outpatient Attender: ORTEGA BROOKS MD 10/20/2019 04:30:00 P [facility] Outpatient Attender: ORTEGA BROOKS MD 10/20/2019 04:29:00 P [facility] Outpatient Attender: ORTEGA BROOKS MD 10/20/2019 04:28:00 P [facility] Outpatient Attender: ORTEGA BROOKS MD 10/20/2019 01:56:01 P [facility] Outpatient Attender: ORTEGA BROOKS MD 10/20/2019 12:54:01 P [facility] Outpatient Attender: ORTEGA BROOKS MD 10/20/2019 12:42:00 P [facility] Outpatient Attender: ORTEGA BROOKS MD 10/20/2019 12:41:00 P [facility] Outpatient Attender: ORTEGA BROOKS MD 10/20/2019 12:40:00 P [facility] Outpatient Attender: ORTEGA BROOKS MD 10/20/2019 12:39:01 P [facility] Outpatient Attender: Himanshu Guerrier MDAdmitter: Himanshu Guerrier MD E [email or web address] 10/06/2019 02:08:17 PM [facility] 11/06/2019 01:34:00 PM [facility] Patient discharged. Outpatient Attender: ORTEGA BROOKS MD 09/25/2019 03:29:03 P [facility] Outpatient Attender: ORTEGA BROOKS MD 09/24/2019 10:08:59 A [facility] Outpatient Attender: ORTEGA BROOKS MD 09/20/2019 02:46:02 P M [facility] Outpatient Attender: ORTEGA SAMUELS 08/24/2019 08:35:00 A M [facility] Medications Medication Brand Name Start Date [...] CPAP 06/04/2020 12:00:00 AM EDT active MED[facility] ([facility] ) Levothyroxine Levothyroxine 02/20/2020 01:00:00 AM EDT 0 {mcg} completed [facility] ([facility]) Nicotine Mini 2 MG Nicotine Mini 02/20/2020 01:00:00 AM EDT 0 {a sd} completed [facility] ([facility]) Tylenol Tylenol 02/20/2020 01:00:00 AM EDT 0 {mg} compl eted [facility] ([facility]) Eliquis 5 MG Eliquis 02/20/2020 01:00:00 AM EDT co mpleted [facility] ([facility]) 5 mg 02/15/2020 12:00:00 AM EDT [...] After finishing the 10mg loading dose course. [facility] 2 mg 02/06/2020 12:00:00 AM EDT lozenge [...] After finishing the 10mg loading dose course. [facility] Lortab 5-325 MG Lortab 01/30/2020 01:00:00 AM EDT completed [facility] ([facility]) Omeprazole 40 MG Omeprazole 01/30/2020 01:00:00 AM EDT completed [facility] ([facility] ) Colace Colace 01/30/2020 01:00:00 AM EDT 100.0 {mg} com pleted [facility]SMART ([facility]) Eliquis 5 MG Eliquis 01/30/2020 01:00:00 AM EDT co mpleted [facility] ([facility]) apixaban 5 MG Oral Tablet apixaban (ELIQUIS) tablet 10 mg apixaban (ELIQUIS) tablet 10 mg 01/27/2020 09:00:00 PM EDT 10 mg Oral activ e 10 mg, Oral, 2 Times Daily, First dose on 01/27/20 at 2100, For 7 days [facility] Medication administered onsite Acetaminophen 325 MG / [...] mg from all sources in 24 hours.
[facility] Medication administered onsite apixaban 5 MG Oral Tablet apixaban (ELIQUIS) tablet 10 mg apixaban (ELIQUIS) tablet 10 mg 01/27/2020 12:00:00 PM EDT 10 mg Oral compl eted 10 mg, Oral, Once, 01/27/20 at 1200, For 1 dose [facility] Medication administered onsite apixaban 5 MG Oral Tablet Apixaban 5 MG Oral Tablet (E liquis) Apixaban 5 MG Oral Tablet (Eliquis) 01/27/2020 12:00:00 AM EDT 5 mg Oral a borted Take 1 tablet by mouth Two Times Daily [facility] apixaban 5 MG Oral Tablet Apixaban 5 MG Oral Tablet (E liquis) Apixaban 5 MG Oral Tablet (Eliquis) 01/27/2020 12:00:00 AM EDT 5 mg Oral a borted Take 1 tablet by mouth Two Times Daily After finishing the 10mg loading dose course. [facility] apixaban 5 MG Oral Tablet Apixaban 5 MG Oral Tablet (E LIQUIS) Apixaban 5 MG Oral Tablet (ELIQUIS) 01/27/2020 12:00:00 AM EDT 10 mg Oral a borted Take 2 tablets by mouth Two Times Daily for 7 days [facility] Acetaminophen 325 MG / Hydrocodone Smith trate 5 MG Oral Tablet HYDROcodone- Acetaminophen 5-325 MG Oral Tablet (LORTAB) HYDROcodone-Acetaminophen 5-325 MG Oral Tablet (LORTAB) 01/27/2020 12:00:00 AM EDT 1 {tbl} Oral active Take 1 tablet by mouth every 6 (six) hours as needed for up to 3 days, Max Daily Dose: 4 tablets [facility] apixaban 5 MG Oral Tablet Apixaban 5 MG Oral Tablet (E LIQUIS) Apixaban 5 MG Oral Tablet (ELIQUIS) 01/27/2020 12:00:00 AM EDT 5 mg Oral a borted Take 1 tablet by mouth Two Times Daily [facility] apixaban 5 MG Oral Tablet Apixaban 5 MG Oral Tablet (E LIQUIS) Apixaban 5 MG Oral Tablet (ELIQUIS) 01/27/2020 12:00:00 AM EDT 5 mg Oral a borted Take 1 tablet by mouth Two Times Daily [facility] Acetaminophen 325 MG / Hydrocodone Smith trate 5 MG Oral Tablet HYDROcodone- Acetaminophen 5-325 MG Oral Tablet (LORTAB) HYDROcodone-Acetaminophen 5-325 MG Oral Tablet (LORTAB) 01/27/2020 12:00:00 AM EDT 1 {tbl} Oral aborted Take 1 tablet by mouth every 6 (six) hours as needed for up to 3 days, Max Daily Dose: 4 tablets [facility] apixaban 5 MG Oral Tablet Apixaban 5 MG Oral Tablet (E LIQUIS) Apixaban 5 MG Oral Tablet (ELIQUIS) 01/27/2020 12:00:00 AM EDT 5 mg Oral a ctive Take 1 tablet by mouth Two Times Daily [facility] apixaban 5 MG Oral Tablet Apixaban 5 MG Oral Tablet (E LIQUIS) Apixaban 5 MG Oral Tablet (ELIQUIS) 01/27/2020 12:00:00 AM EDT 5 mg Oral a borted Take 1 tablet by mouth Two Times Daily [facility] 1 ML heparin sodium, porcine 1000 UNT/ML Injection heparin (porcine) 1000 units/mL injection 5,200 Units heparin (porcine) 1000 units/mL injectio n 5,200 Units 01/26/2020 12:15:00 PM EDT 5200 U Intravenous comple charmaine 5,200 Units, Intravenous, Once, Wed01/26/20 at 1215, For 1 dose
Adult High Dose / With Bolus Protocol.
[facility] Medication administered onsite sodium chloride 0.9 % bolus 1,000 mL [id number] 01/26/2020 12:15: 00 AM EDT 1000 mL Intravenous completed 1,000 mL , Intravenous, Once, Wed01/26/20 at 0015, For 1 dose [facility] Medication administered onsite 1 ML heparin sodium, porcine 1000 UNT/ML Injection heparin (porcine) 1000 units/mL injection 5,227 Units heparin (porcine) 1000 units/mL injectio n 5,227 Units 01/25/2020 09:30:00 PM EDT 5227 U Intravenous comple charmaine 5,227 Units, Intravenous, Once, Dina 01/25/20 at 2130, For 1 dose
Adult High Dose / With Bolus Protocol.
[facility] Medication administered onsite pantoprazole 40 MG Delayed Release Oral Tablet pantoprazole (PROTONIX) EC tablet 40 mg pantoprazole (PROTONIX) EC tablet 40 mg 01/25/2020 09:00:00 AM E DT 40 mg Oral active 40 mg, Ora l, Daily Standard, First dose on Wed01/25/20 at 0900, For 30 days
Do not crush or chew
[facility] Medication administered onsite sodium chloride 0.9 % bolus 1,000 mL 01/25/2020 06:30: 00 AM EDT 1000 mL Intravenous completed 1,000 mL , Intravenous, Once, Dina 01/25/20 at 0630, For 1 dose [facility] Medication administered onsite sodium chloride 0.9 % bolus 1,000 mL 01/24/2020 10:30: 00 PM EDT 1000 mL Intravenous completed 1,000 mL , Intravenous, Once, Wed01/24/20 at 2230, For 1 dose [facility] Medication administered onsite 1 ML heparin sodium, porcine 1000 UNT/ML Injection heparin (porcine) 1000 units/mL injection 5,300 Units heparin (porcine) 1000 units/mL injectio n 5,300 Units 01/24/2020 10:15:00 PM EDT 5300 U Intravenous comple charmaine 5,300 Units, Intravenous, Once, Wed01/24/20 at 2215, For 1 dose
Adult High Dose / With Bolus Protocol.
[facility] Medication administered onsite NaCl infusion 0.9 % 01/24/2020 04:15:00 PM EDT Intravenous completed at 100 mL/hr, Intrav enous, Continuous, Starting Wed01/24/20 at 1615, For 24 hours [facility] Medication administered onsite 500 ML heparin sodium, porcine 50 UNT/ML Injection heparin in NaCl 0.45 % infusion 50 units/mL heparin in NaCl 0.45 % infusion 50 units/mL 01/24/2020 03:00:00 PM EDT 3450 U/h Intravenous aborted 3,450 Units/hr (69 mL/hr), Intravenous, at 69 mL/hr, Continuous, Starting Wed01/24/20 at 1500, For 30 days
Adult High Dose / With Bolus Protocol.
[facility] Medication administered onsite 1 ML heparin sodium, porcine 1000 UNT/ML Injection heparin (porcine) 1000 units/mL injection 5,275 Units heparin (porcine) 1000 units/mL injectio n 5,275 Units 01/24/2020 02:45:00 PM EDT 5275 U Intravenous comple charmaine 5,275 Units, Intravenous, Once, Wed01/24/20 at 1500, For 1 dose
Adult High Dose / With Bolus Protocol.
[facility] Medication administered onsite Docusate Sodium 100 MG Oral Capsule docusate sodium (C OLACE) capsule 100 mg docusate sodium (COLACE) capsule 100 mg 01/24/2020 09:00:00 AM EDT 100 mg Oral active 100 mg, Oral, 2 Times Daily, First dose on Wed01/24/20 at 0900, For 30 days [facility] Medication administered onsite 1 ML heparin sodium, porcine 1000 UNT/ML Injection heparin (porcine) 1000 units/mL injection 5,295 Units heparin (porcine) 1000 units/mL injectio n 5,295 Units 01/24/2020 06:45:00 AM EDT 5295 U Intravenous comple charmaine 5,295 Units, Intravenous, Once, Wed01/24/20 at 0645, For 1 dose
Adult High Dose / With Bolus Protocol.
[facility] Medication administered onsite calcium gluconate in NaCl 0.9 % infusion 1 g/50 mL [id number] 01/24/2020 02:30:00 AM EDT 1 g Intravenous completed 1 g, Intravenous, Administer over 1 Hours, Once, Wed01/24/20 at 0230, For 1 dose
1 g calcium gluconate = 90 mg elemental Ca++ = 4.5 mEq Ca++. Dosed on mg of calcium gluconate.
[facility] Medication administered onsite Acetaminophen 325 MG Oral Tablet acetaminophen (TYLENO L) tablet 975 mg acetaminophen (TYLENOL) tablet 975 mg 01/23/2020 10:45:00 PM EDT 97 5 mg Oral completed 975 mg, Oral, O nce, 01/23/20 at 2245, For 1 dose
Maximum daily dose of acetaminophen is 3,000 mg from all sources in 24 hours.
[facility] Medication administered onsite 500 ML heparin sodium, porcine 50 UNT/ML Injection heparin in NaCl 0.45 % infusion 50 units/mL heparin in NaCl 0.45 % infusion 50 units/mL 01/23/2020 10:15:00 PM EDT 2150 U/h Intravenous aborted 2,150 Units/hr (43 mL/hr), Intravenous, at 43 mL/hr, Continuous, Starting Wed01/23/20 at 2215, For 30 days [facility] Medication administered onsite 7.5-325 mg 01/15/2020 12:00:00 AM EDT tablet 60 TAKE 1 TABLET BY MOUTH EVERY 6 HOURS NEEDED FOR SEVERE HIP PAIN MAXIMUM DAILY DOSE = 4 TAKE 1 TABLET BY MOUTH EVERY 6 HOURS NEEDED FOR SEVERE HIP PAIN MAXIMUM DAILY DOSE = 4 SOLD: 01/17/2020 [facility] Omeprazole 40 MG Delayed Release Oral Ca psule Omeprazole 40 MG Oral Capsule Delayed Release (PRILOSEC) Omeprazole 40 MG Oral Capsule Delayed Re lease (PRILOSEC) 12/22/2019 12:00:00 AM EDT 1 {capsule} Oral ac tive Take 1 capsule by mouth daily [facility] 5-325 mg 12/21/2019 12:00:00 AM EDT tablet 60 TAKE 1 TABLET BY MOUTH EVERY 4-6 HOURS NEEDED FOR SEVERE PAIN MAXIMUM DAILY DOSE = 2 TAKE 1 TABLET BY MOUTH EVERY 4-6 HOURS NEEDED FOR SEVERE PAIN MAXIMUM DAILY DOSE = 2 SOLD: 12/22/2019 [facility] Acetaminophen 325 MG / Hydrocodone Smith trate 5 MG Oral Tablet HYDROcodone- Acetaminophen 5-325 MG Oral Tablet (LORTAB) HYDROcodone-Acetaminophen 5-325 MG Oral Tablet (LORTAB) 12/21/2019 12:00:00 AM EDT 1 {tbl} Oral aborted Take 1 tablet by mouth as needed [facility] 5-325 mg 11/22/2019 12:00:00 AM EDT tablet 60 TAKE ONE TABLET BY MOUTH EVERY 4 TO 6 HOURS NEEDED FOR SEVERE PAIN, MAXIMUM DAILY DOSE = 2 TAKE ONE TABLET BY MOUTH EVERY 4 TO 6 HOURS NEEDED FOR SEVERE PAIN, MAXIMUM DAILY DOSE = 2 SOLD: 11/22/2019 [facility] ([email or web address] 2 mg 11/10/2019 12:00:00 AM EDT [...] completed doxycycline monohydrate 100 MG Oral Capsule [place] ([facility]) Furosemide 40 MG Oral Tablet furosemide 40 mg tablet furosemide 40 mg tablet completed furosemide 40 MG Oral Tablet [facility] ([facility]) Insurance Providers Payer name Policy type / Coverage type Policy ID Covered green party ID Covered green party's relationship to [employer] Policy [employer] Plan Information [employer] MCDO [id number] SP [id number] [facility] O [id number] S [id number] Managed Care - [facility] Community Plan P [id number] S [id number] Medicaid S [id number] S [id number] Managed Care - [facility] Community Plan P [id number] S [id number] [facility] I [id number] Self [id number] [facility] I [id number] Self [id number] Medicaid S [id number] [facility] MEDICAID [id number] [facility] MEDICAID [id number] Reyna [id number] Managed Care - [facility] Community Plan P [id number] S [id number] Managed Care - [facility] Community Plan P [id number] S [id number] Managed Care - [facility] Community Plan P [id number] S [id number] Medicaid S [id number] S [id number] [facility] Comm Plan Medicaid F [id number] SELF [id number] Managed Care - Community Plan [facility] P [id number] S [id number] Managed Care - Community Plan [facility] P [id number] S [id number] Self Pay P [id number] S [id number] SELF PAY ONLY UNK SP UNK SELF PAY UNAVAILABLE SP UNAVAILA BLE Problems, Conditions, and Diagnoses Code Display Name Description Problem Type Effective Dates Data Source(s) 36654307 Cigarette smoker Cigarette Smoker Problem 06/20/2020 12 :00:00 AM EDT [place] ([facility]) 224823299 Thromboembolism of vein Thromboembolism of Vein Proble m 06/20/2020 12:00:00 AM EDT [place] ([facility]) 291408196 Morbid obesity Morbid Obesity Problem 06/20/2020 12:00: 00 AM EDT [place] ([facility]) 07563171 Vitamin D deficiency Vitamin D Deficiency Problem 06/20/2020 12:00:00 AM EDT [place] ([facility]) 06830158 Cigarette smoker Cigarette Smoker Problem 06/20/2020 12 :00:00 AM EDT [place] ([facility]) 015503208 Thromboembolism of vein Thromboembolism of Vein Proble m 06/20/2020 12:00:00 AM EDT [place] ([facility]) 485952768 Morbid obesity Morbid Obesity Problem 06/20/2020 12:00: 00 AM EDT [place] ([facility]) 60128639 Vitamin D deficiency Vitamin D Deficiency Problem 06/20/2020 12:00:00 AM EDT [place] ([facility]) 82809540 Cigarette smoker Cigarette Smoker Problem 06/20/2020 12 :00:00 AM EDT [place] ([facility]) 437379847 Thromboembolism of vein Thromboembolism of Vein Proble m 06/20/2020 12:00:00 AM EDT [place] ([facility]) 594731940 Morbid obesity Morbid Obesity Problem 06/20/2020 12:00: 00 AM EDT [place] ([facility]) 45898278 Vitamin D deficiency Vitamin D Deficiency Problem 06/20/2020 12:00:00 AM EDT [place] ([facility]) M16.11 Unilateral primary osteoarthritis, right hip Unilateral primary osteoarthritis, right hip 02/21/2020 03:26:37 PM EDT [facility] 160411528 Idiopathic osteoarthritis Idiopathic Osteoarthritis Pr oblem 02/20/2020 12:00:00 AM EDT [place] ([facility]) 930054665 Idiopathic osteoarthritis Idiopathic Osteoarthritis Pr oblem 02/20/2020 12:00:00 AM EDT [place] ([facility]) 218977080 Idiopathic osteoarthritis Idiopathic Osteoarthritis Pr oblem 02/20/2020 12:00:00 AM EDT [place] ([facility]) V70.0 Encounter for general adult medical exam ination with abnormal findings Encounter for general adult medical examination with abnormal findings 02/15/2020 08:34:39 AM EDT [facility] 351245469 Other specified hypothyroidism Other specified hypothy roidism 02/15/2020 08:34:39 AM EDT [facility] V85.43 BMI 50.0-59.9 BMI 50.0-59.9 02/15/2020 08:34:39 AM EDT [facility] 805676701 Procedure by method Procedure by Method Problem 0 02/15/2020 12:00:00 AM EDT [place] ([facility]) 177175715 Body mass index 30+ - obesity Body Mass Index 30+ - Ob esity Problem 02/15/2020 12:00:00 AM EDT [place] ([facility]) 71565534 Hypothyroidism Hypothyroidism Problem 02/15/2020 12:00: 00 AM EDT [place] ([facility]) 052078114 Procedure by method Procedure by Method Problem 0 02/15/2020 12:00:00 AM EDT [place] ([facility]) 948720355 Body mass index 30+ - obesity Body Mass Index 30+ - Ob esity Problem 02/15/2020 12:00:00 AM EDT [place] ([facility]) 01926317 Hypothyroidism Hypothyroidism Problem 02/15/2020 12:00: 00 AM EDT [place] ([facility]) 508675126 Procedure by method Procedure by Method Problem 0 02/15/2020 12:00:00 AM EDT [place] ([facility]) 708903915 Body mass index 30+ - obesity Body Mass Index 30+ - Ob esity Problem 02/15/2020 12:00:00 AM EDT [place] ([facility]) 08560930 Hypothyroidism Hypothyroidism Problem 02/15/2020 12:00: 00 AM EDT [place] ([facility]) 327.23 Obstructive sleep apnea syndrome Obstructive sleep gettering operator ea syndrome 02/05/2020 02:34:23 PM EDT [facility] I26.09 Other pulmonary embolism with acute cor pulmonale Other pulmonary embolism with acute cor pulmonale 02/05/2020 02:34:23 PM EDT [facility] 66464046 Acute cor pulmonale Acute Cor Pulmonale Problem 0 02/05/2020 12:00:00 AM EDT [place] ([facility]) 91740320 Obstructive sleep apnea syndrome Obstructive Sle ep Apnea Syndrome Problem 02/05/2020 12:00:00 AM EDT [place] ([facility]) 11651181 Acute cor pulmonale Acute Cor Pulmonale Problem 0 02/05/2020 12:00:00 AM EDT [place] ([facility]) 23851819 Obstructive sleep apnea syndrome Obstructive Sle ep Apnea Syndrome Problem 02/05/2020 12:00:00 AM EDT [place] ([facility]) 42554381 Acute cor pulmonale Acute Cor Pulmonale Problem 0 02/05/2020 12:00:00 AM EDT [place] ([facility]) 89067541 Obstructive sleep apnea syndrome Obstructive Sle ep Apnea Syndrome Problem 02/05/2020 12:00:00 AM EDT [place] ([facility]) I82.412 Acute embolism and thrombosis of left fe moral vein Acute embolism and thrombosis of left femoral vein Problem 01/29/2020 01:00:00 AM EDT [place] ([facility]) I82.432 Acute embolism and thrombosis of left po pliteal vein Acute embolism and thrombosis of left popliteal vein Problem 01/29/2020 01:00:00 AM EDT [place] ([facility]) E66.01 Morbid (severe) obesity due to excess ca lories Morbid (severe) obesity due to excess calories Problem 01/29/2020 01:00:00 AM EDT [place] ( [facility]) G47.33 Obstructive sleep apnea (adult) (pediatr ic) Obstructive sleep apnea (adult) (pediatric) Problem 01/29/2020 01:00:00 AM EDT [place] ([facility]) M16.0 Bilateral primary osteoarthritis of hip Bilateral primary osteoarthritis of hip Problem 01/29/2020 01:00:00 AM EDT [place] ([facility]) G89.29 Other chronic pain Other chronic pain Problem 0 01:00:00 AM EDT [place] ([facility]) F17.210 Nicotine dependence, cigarettes, uncompl icated Nicotine dependence, cigarettes, uncomplicated Problem 01/29/2020 01:00:00 AM EDT [place] ([facility]) Z79.01 salvage determiner (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 s salvage determiner (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s Problem 01/29/2020 01:00:00 AM EDT [place] ([facility]) Z91.81 History of falling History of falling Problem 0 01:00:00 AM EDT [place] ([facility]) Z68.44 Body mass index (BMI) 60.0-69.9, adult B pravin mass index (BMI) 60.0-69.9, adult Problem 01/29/2020 01:00:00 AM EDT [place] ([facility]) Z60.2 Problems related to living alone Problems related to l iving alone Problem 01/29/2020 01:00:[facility] I26.09 Other pulmonary embolism with acute cor pulmonale Other pulmonary embolism with acute cor pulmonale Problem 01/29/2020 01:00:00 AM [facility] I27.82 Chronic pulmonary embolism Chronic pulmonary embolism Problem 01/29/2020 01:00:00 AM EDT [facility] ) 719.07 Ankle edema Ankle edema 11/10/2019 09:17:31 AM EDT [facility] V15.82 Ex-smoker Ex-smoker 11/10/2019 09:17:31 AM ED T [facility] 245032841 Clinical finding Clinical Finding Problem 11/10/2019 12 :00:00 AM EDT [facility]) 495168035 Localized edema Localized Edema Problem 11/10/2019 12:0 0:00 AM EDT [facility]) 671498639 Clinical finding Clinical Finding Problem 11/10/2019 12 :00:00 AM EDT [facility]) 085774323 Localized edema Localized Edema Problem 11/10/2019 12:0 0:00 AM EDT [facility]) 072766492 Clinical finding Clinical Finding Problem 11/10/2019 12 :00:00 AM EDT [facility]) 914106608 Localized edema Localized Edema Problem 11/10/2019 12:0 0:00 AM EDT [facility]) F43.20 Adjustment disorder, unspecified Adjustment diso rders, Unspecified Diagnosis 07/18/2020 12:00:00 AM EST [place] ([facility]) F50.9 Eating disorder, unspecified Unspecified feeding or eating disorder Diagnosis 07/18/2020 12:00:00 AM EST [place] ([facility]) I26.94 Multiple subsegmental pulmonary emboli w ithout acute cor pulmonale Multiple subsegmental pulmonary emboli without acute cor pulmonale Diagnosis 01/24/2020 05:37:49 PM EDT [facility] I26.99 Other pulmonary embolism without acute c or pulmonale Other pulmonary embolism without acute cor pulmonale Diagnosis 01/24/2020 05:37:49 PM EDT [facility] Z68.44 Body mass index (BMI) 60.0-69.9, adult B pravin mass index (bmi) 60.0-69.9, adult Diagnosis 01/24/2020 05:34:15 PM EDT [facility] E66.01 Morbid (severe) obesity due to excess ca lories Morbid (severe) obesity due to excess calories Diagnosis 01/24/2020 05:34:15 PM EDT [facility] LLE DVT LLE DVT Diagnosis 01/23/2020 09:52:49 PM ED [facility] Multiple PE's Multiple PE's Diagnosis 01/23/2020 09:52:49 PM EDT [facility] E66.01 Morbid (severe) obesity due to excess ca lories Morbid (severe) obesity due to excess ca Diagnosis 11/06/2019 07:26:[address] [facility] K21.9 Gastro-esophageal reflux disease without esophagitis Gastro-esophageal reflux disease without Diagnosis 11/06/2019 07:25:00 AM EDT [facility] Surgeries/Procedures Procedure Description Date Indications Data Source(s) ANTI-XA UNFRACTIONATED HEPARIN LEVEL ANTI-XA UNFRACTIONATED HEPARIN LEVEL Routine 01/27/2020 5:29 AM EDT 01/27/2020 09:29:00 AM [facility] PROBNP PROBNP Routine 01/27/2020 5:29 AM EDT 01/27/20 20 09:29:00 AM [facility] PROTHROMBIN TIME PROTIME INR Routine 01/27/2020 5:29 AM EDT 01/27/2020 09:29:00 AM [facility] BLOOD COUNT COMPLETE AUTOMATED CBC Routine 01/27/2020 5:29 A M EDT 01/27/2020 09:29:00 AM [facility] BASIC METABOLIC PANEL CALCIUM TOTAL BASIC METABOLIC PANEL Routi ne 01/27/2020 5:29 AM EDT 01/27/2020 09:29:00 AM EDT [facility] HEPARIN ASSAY ANTI-XA UNFRACTIONATED HEPARIN LEVEL Routine 01/26/2020 10:50 PM EDT 01/27/2020 02:50:00 AM EDT [facility] HEPARIN ASSAY ANTI-XA UNFRACTIONATED HEPARIN LEVEL Routine 01/26/2020 5:22 PM EDT 01/26/2020 09:22:00 PM EDT [facility] HEPARIN ASSAY ANTI-XA UNFRACTIONATED HEPARIN LEVEL Routine 01/26/2020 11:07 AM EDT 01/26/2020 03:07:00 PM EDT [facility] HEPARIN ASSAY ANTI-XA UNFRACTIONATED HEPARIN LEVEL Routine 01/26/2020 3:21 AM EDT 01/26/2020 07:21:00 AM EDT [facility] PROTHROMBIN TIME PROTIME INR Routine 01/26/2020 3:21 AM EDT 01/26/2020 07:21:00 AM [facility] BLOOD COUNT COMPLETE AUTOMATED CBC Routine 01/26/2020 3:21 A M EDT 01/26/2020 07:21:00 AM [facility] BASIC METABOLIC PANEL CALCIUM TOTAL BASIC METABOLIC PANEL Routi ne 01/26/2020 3:21 AM EDT 01/26/2020 07:21:00 AM EDT [facility] HEPARIN ASSAY ANTI-XA UNFRACTIONATED HEPARIN LEVEL Routine 01/25/2020 8:01 PM EDT 01/26/2020 12:01:00 AM EDT [facility] HEPARIN ASSAY ANTI-XA UNFRACTIONATED HEPARIN LEVEL Routine 01/25/2020 11:59 AM EDT 01/25/2020 03:59:00 PM EDT [facility] HEPARIN ASSAY ANTI-XA UNFRACTIONATED HEPARIN LEVEL Routine 01/25/2020 4:59 AM EDT 01/25/2020 08:59:00 AM EDT [facility] NATRIURETIC PEPTIDE PROBNP Routine 01/25/2020 4:59 AM EDT 01/25/2020 08:59:00 AM [facility] PROTHROMBIN TIME PROTIME INR Routine 01/25/2020 4:59 AM EDT 01/25/2020 08:59:00 AM [facility] BLOOD COUNT COMPLETE AUTOMATED CBC Routine 01/25/2020 4:59 A M EDT 01/25/2020 08:59:00 AM [facility] BASIC METABOLIC PANEL CALCIUM TOTAL BASIC METABOLIC PANEL Routi ne 01/25/2020 4:59 AM EDT 01/25/2020 08:59:00 AM EDT [facility] HEPARIN ASSAY ANTI-XA UNFRACTIONATED HEPARIN LEVEL Routine 01/24/2020 9:10 PM EDT 01/25/2020 [facility]:10[facility] PROTIME INR Routine 01/24/2020 9:10 PM EDT 01/25/2020 01:10:00 AM [facility] BLOOD COUNT COMPLETE AUTOMATED CBC Timed 01/24/2020 9:10 P M EDT 01/25/2020 01:10:00 AM [facility] HEPARIN ASSAY ANTI-XA UNFRACTIONATED HEPARIN LEVEL Routine 01/24/2020 1:36 PM EDT 01/24/2020 05:36:00 PM EDT [facility] ECHO TTHRC R-T 2D W/WOM-MODE COMPL SPEC&COLR DOP ECHOCARDIO GRAM 2D COMPLETE Routine 01/24/2020 9:31 AM EDT 01/24/2020 01:31:23 PM [facility] HEPARIN ASSAY ANTI-XA UNFRACTIONATED HEPARIN LEVEL Routine 01/24/2020 5:46 AM EDT 01/24/2020 09:46:00 AM EDT [facility] BLOOD COUNT COMPLETE AUTO&AUTO DIFRNTL WBC COUNT CBC AND DIFFER ENTIAL Routine 01/24/2020 5:46 AM EDT 01/24/2020 09:46:00 AM [facility] TROPONIN QUANTITATIVE TROPONIN T Routine 01/24/2020 5:46 AM EDT 01/24/2020 09:46:00 AM [facility] PHOSPHORUS INORGANIC PHOSPHORUS LEVEL Routine 01/24/2020 5:46 AM E DT 01/24/2020 09:46:00 AM [facility] MAGNESIUM MAGNESIUM LEVEL Routine 01/24/2020 5:46 AM EDT 01/24/2020 09:46:00 AM [facility] COMPREHENSIVE METABOLIC PANEL COMPREHENSIVE METABOLIC PANEL Rou lisa 01/24/2020 5:46 AM EDT 01/24/2020 09:46:00 AM EDT [facility] UH COVID-19 PCR UH COVID-19 PCR STAT 01/23/2020 10:41 PM EDT 01/24/2020 02:41:00 AM [facility] BLOOD COUNT COMPLETE AUTO&AUTO DIFRNTL WBC COUNT CBC AND DIFFER ENTIAL Routine 01/23/2020 10:31 PM EDT 01/24/2020 02:31:00 AM EDT [facility] TROPONIN QUANTITATIVE POCT ISTAT TROPONIN Routine 01/23/2020 10:12 PM EDT 01/24/2020 02:12:00 AM EDT [facility] HEPARIN ASSAY ANTI-XA UNFRACTIONATED HEPARIN LEVEL Routine 01/23/2020 10:09 PM EDT 01/24/2020 02:09:00 AM EDT [facility] BLOOD COUNT COMPLETE AUTO&AUTO DIFRNTL WBC COUNT CBC AND DIFFER ENTIAL Routine 01/23/2020 10:09 PM EDT 01/24/2020 02:09:00 AM EDT [facility] BASIC METABOLIC PANEL CALCIUM TOTAL BASIC METABOLIC PANEL Routi ne 01/23/2020 10:09 PM EDT 01/24/2020 02:09:00 AM EDT [facility] EKG 12-LEAD - CMAXX REPORT EKG 12-LEAD - CMAXX REPORT 01/23/2020 10:08 PM EDT 01/24/2020 02:08:39 AM EDT [facility] EKG 12-LEAD - CMAXX REPORT EKG 12-LEAD - CMAXX REPORT 01/23/2020 10:08 PM EDT 01/24/2020 02:08:39 AM EDT [facility] EKG 12-LEAD EKG 12-LEAD STAT 01/23/2020 10:08 PM EDT 01/24/2020 02:08:39 AM EDT [facility] UPPER NDSC BIOPSY SINGLE/MULTIPLE 11/06/2019 12:00:00 AM EDT [place] ([facility]) Results ID Date Data Source [id number] 10/16/2020 03:56:00 AM EST [facility] Name Value Range Interpretation Code Description Data Savi rce(s) Supporting Document(s) SARS coronavirus 2 RNA [Presence] in Res piratory specimen by BEVERLY with probe detection NEGATIVE [facility] This lab was ordered by [facility] a nd reported by [facility]. ID Date Data Source [id number] 05/09/2020 09:44:34 AM EDT [facility] Labs In-House Blood TestsDate/Time Colle cted: May 09, 2020 9:37 AMTest Result Reference Range Normal ValueComments: Labs drawn in office taken from right hand. Mari was a hard stick, but tolerated it well. Majo Ashley [place], May 09, 2020 9:45 AMAssessment & Plan Orders:[id number] Ofc Vst-Est Level I [CPT-21633] 22402 - Venipuncture [CPT-57397] Name Value Range Interpretation Code Description Data Savi rce(s) Supporting Document(s) ID Date Data Source [id number] 05/09/2020 09:36:00 AM EDT [facility] Name Value Range Interpretation Code Description Data Savi rce(s) Supporting Document(s) HGBA1C 6.4 % N [facility] ID Date Data Source [id number] 05/09/2020 09:36:00 AM EDT [facility] Name Value Range Interpretation Code Description Data Savi rce(s) Supporting Document(s) BG FASTING 132 mg/dL 70-100 H [facility] TSH 2.220 microintl units/mL 0.358-3.740 N [facility] ID Date Data Source [id number] 02/15/2020 08:10:42 AM EDT [facility] Measurements & CalculationsHeight: 74 inches [...] during this visit, including review of any mpoz-wcl-dvygaxm medications, herbal therapies, and/or supplements.Allergy ReviewAllergy List [...] adult medical examination with abnormal findings (ICD-V70.0) (BKB26-Y85.01) Assessment: Instructions: Diet and exercise.Fasting blood tests reviewed.Other specified hypothyroidism (ICD10- E03.8) Assessment: Instructions: Newly diagnosed and this may be a factor in both his sleep apnea and obesity.Recheck 3 months with fasting blood tests before.Assessed:Obstructive sleep apnea syndrome (ICD-327.23) (QPW92-U36.33) Assessment: Instructions: Refer to pulomnary.Pain in right hip (ICD-719.45) (PFX16-U36.551) Assessment: Instructions: Medication options are limited:Opiates are [...] Qty: 60[Tablet] Refills: 5Allergies:SOMA (Severe)Orders:Preventive, Est, (40-64) [CPT-52621] Pulmonology Consult [CPT-63328] COMP METABOLIC PANEL [CPT-00925] TSH [CPT-88023] LIPID PANEL [CPT-52827] HgBA1c [CPT-93818] Medications:LEVOTHYROXINE SODIUM 100 MCG ORAL TABLET (LEVOTHYROXINE SODIUM) One tablet by mouth every day #30[Tablet] x 2 Route:ORAL Entered and Authorized by: John Martinez MD Method used: Electronically to [facility] (retail) [address] [place] [address] Note to Pharmacy: Route: ORAL; RxID: [id number] 5 MG ORAL TABLET (APIXABAN) One po bid. #60[Tablet] x 5 Entered and Authorized by: John Martinez MD Method used: Electronically to [facility] (retail) [address] [place] [address] Fax: Note to Pharmacy: Route: ORAL; RxID: [id number] signed by John Martinez MD on 02/15/2020 at 9:56 AM Name Value Range Interpretation Code Description Data Savi rce(s) Supporting Document(s) ID Date Data Source [id number] 02/07/2020 07:43:23 AM EDT [facility] Labs In-House Blood TestsDate/Time Colle cted: February 07, 2020 7:43 AMTest Result Reference Range Normal ValueComments: blood draw done in office,sam sunshine from right ac, tolerated well.Emely Schmitt, February 07, 2020 7:44 AMAssessment & Plan Orders:[id number] Vst-Est Level I [CPT-66863] 28354 - Venipuncture [CPT-70023] Name Value Range Interpretation Code Description Data Savi rce(s) Supporting Document(s) ID Date Data Source [id number] 02/07/2020 07:40:00 AM EDT [facility] Name Value Range Interpretation Code Description Data Savi rce(s) Supporting Document(s) HCT 47.0 % 42.0-52.0 N [facility] HGB 14.9 g/dL 13.5-17.5 N [facility] MCH 31.7 G/DL pg 32.0-36.5 [facility] PG % 27.0-33.0 N [facility] PLATELETS 194 10 10*3/mm3 150-450 N [facility] RBC 5.29 10 10*6/mm3 4.30-6.10 N [facility] RDW 15.2 % 11.5-14.5 H [facility] WBC TOTAL 9.6 4.0-10.0 N [facility] ID Date Data Source [id number] 02/07/2020 07:40:00 AM EDT [facility] Name Value Range Interpretation Code Description Data Savi rce(s) Supporting Document(s) BG FASTING 118 mg/dL 70-[address] [facility] TSH 4.460 microintl units/mL 0.358-3.740 H [facility] VIT D25 TOT 15.0 ng/mL 30.0-100.0 L [facility] ID Date Data Source [id number] 02/07/2020 07:40:00 AM EDT [facility] Name Value Range Interpretation Code Description Data Savi rce(s) Supporting Document(s) HGBA1C 6.5 % N [facility] ID Date Data Source [id number] 02/05/2020 01:42:25 PM EDT [facility] Measurements & CalculationsHeight: 74 inches [...] been admitted to the hospital? Yes - [facility] for PE Have you been to [...] seen Ortho for a while. Was taking [place] for this. We had recently increased this [...] Problems:Added: Obstructive sleep apnea syndrome (ICD- 327.23) (JHZ09-D76.33) Assessment: Instructions: Refer to pulmonary.We discussed the importance eof treating this as well as the danger of using [place] with its risk of addiitive respiratory depression. He is anxious about this possibility and I share his cocnern. I would like to avoid this combination for a while and have him focus on using Tylenol until we can address this.Other pulmonary embolism with acute cor pulmonale (LIA57-P39.09) Assessment: Instructions: Due to obesity and immobility. Symptomatically improved.Cotninue current dose of Eliquis for at least 6 months.Assessed:Obesity, unspecified (QUH64-Q12.9) Assessment: Instructions: He will elisa bariatric surgery to reschedule with them. The sooner the better.Pain in right hip (ICD-719.45) (GVM50-R84.551) Assessment: Instructions: He will call Ortho to reschedule.Patient Instructions/Care Plan: Obstructive sleep apnea syndrome: Refer to pulmonary.We discussed the importance eof treating this as well as the danger of using [place] with its risk of addiitive respiratory depression. [...] daysOrders:Adult - Ofc Vst, EST, Level III [CPT-49435] Medications:EQL NICOTINE POLACRILEX 2 MG MOUTH/THROAT LOZENGE (NICOTINE POLACRILEX) one lozenge slowly dissolved in mouth q2h prn #150[Lozenge] x 1 Route:MOUTH/THROAT Entered and Authorized by: John Martinez MD Method used: Electronically to [facility] (retail) [address] [place] [address] Note to Pharmacy: Route: M/T; RxID: [id number] signed by John Martinez MD on 02/05/2020 at 2:34 PM Name Value Range Interpretation Code Description Data Savi rce(s) Supporting Document(s) ID Date Data Source [id number] 01/30/2020 09:53:13 PM EDT [facility] CT 2ND OPINION READ - CHEST [id number] ESULTInterpreted by:Krishna Parr MDEXAMINATION: CT 2ND OPINION READ - CHEST [id number] INDICATION: 49-year-old male with pulmonary emboli, assess for right heart strain.TECHNIQUE: Axial CTA images of the chest with contrast were acquired at [facility] on January 23, 2020 and submitted for [...] rce(s) Supporting Document(s) ID Date Data Source [id number] 01/30/2020 06:02:32 PM EDT [facility] Name Value Range Interpretation Code Description Data Savi rce(s) Supporting Document(s) ED Provider Note [facility] [id number] lbm [file] [id number] GR5TFI7hCRZxMGSXHK5ObNCwsW8vlzV1OvHkZUMNPmUmF32iiZPnVUNfZZWqSBJaRa7AUCEfQ6OqtdGa nYpxylCdFQWgUZPYMB5JYGeiffQxrZZnrSgoOO48hE yzEW7STf6AHkEoRM0czn4FvBReMz2MXKL5RN7JIVMnOZPsSSTpWXG4EBKoCjZuTAeeNOIcYELyYXA1AI SmQBCoAY9DHwZpFYGmSZVeBhmhDYQiTZBsfj0BVOPlOCK5DgFlDWLjIVQnJEQyZGlhQQOzORJwDGX5KR KmZJOqQR3UXqQgZFCgJKFiKbpgQPZmQYPnmr8HJEFv ZKXcWkW7XLXmBBBaJJHzKCpdIWXtTHV8WmQwNTRiBMYxXI4ASkSyXTXzFAP8KQjaUQXeDQQdei7EUGAh DSEwRDI9VmSqNKGdXPOaWVyuPAWdXQG0Ohh1QCFnAGNzHT5IHdMoKBJwPQE6XCdeCYHxZNPejj8UJKPc UATtKLh9ENGwPJFaSZZtXLdkBDOpFCIjPIF4CHJrNP EcSP0UCvKiTNUoCLDqFlSnEZQxDOZtlt1GKFUnAKDqWAY3UwHrXBKrBMUrCXoyRFPuXSB6FuNlDTVpRG FmGR0OJjDoWIRkTFQ5GFmtDCReXWKrcv0GUSGtRJTbUPQ8FSCfHLXwNVMaGDysSPFbWDF2Uav7VOMuJX MyDD2DOpBuPCFwQHvyKQHbTXKsSCKogh2CLNCmGUDa TgNlFeJnEMAcSYPzIFriJMPbXLYySfA5JKTeHDYvRM4PVrGuVLJoSlK2KBKoOOAuOALymc3NSCVeKJSu KURhLsCoVKJjEBEgSFtuTZEuHIC3Odn9ZNMvUTBoRT1XPtZtMGZmXid6RVAaUQNkCDNvzz7YGREhYZJg KYWzAIXkWKRcBIAoXMenBAHyLOWbBQD6THZyGKUaMG 9OYpSvVWDmWeJeDOKmQHDzKIZpyc9QOYGcWOYaCzDdLGHtXIIeHOMcVUlsAOKyDLWoEgJjKHRmOXDsEM 3QLiQtPABkBhE8JWtwJTCaLYWigq0AYRZgUZFzJzX2WNUjOUJgPQYxDGbfHOMvSPF3VeFrSVUqMWHuLQ 4LUmCoEPBfDnH0HRWvKVGpCAModz8AIDFiQYDlFPm7 XQNwXHKlQMJaDOdgFXFlXRT6QDHyIMXuDPQiOY7ZShNjOXIxKsVxBWavBWKjPBGuus1YDVKxWURcHoGq HBSrCOKlWOYeUMjkTUHyIFM2QxD6BAFuFPAqTJ4YBgBeCTXeLMgqXfRbRJVkYNHtvw6YKPYbZZH3GFP9 WrPhCLPyBDWtTTfkIQPaVKP0UYrwVECnPYQfDD5PIq KgVTNpKDz2IawpXYKpBLClin5IYMIvTAE9RZN4MRXyPOPtEWZxUKatMYKxPDG4NdZ3ZBRfHWBgUK9UOj MzWHFpRMm7CfKbZSVqTQTlah2PUNNiGSS2TQm2FXBhLOWcFJDyVKciCDHrDFSsHRF3KQIqGXTpHQ7RGg AhLNLfTVKlQPZdHZIkFAMpqe4RGEJhNKJ5NKO1HBFj FCYmPVXtXJtsONXbFFQkLyB7YHXbBNJfKJ4HLfXoYMNjYDCzFTKqOIGuGPNefu5DJUJqCQG0CgE3SpUs ETArEJMkQQxlSJPjTCRaCOe0DXTiTBVdAR8UAbOrNHBxWUA1LWNzBXMsGEUfyn9DUUAyDMR6Tzq9KBHt YTVmJFLoIEjpQTDkDJI1OKY2QZLwGALdNP7KPoEjQF ncCAKEXaq7ZHfjW7z6MUF5MS0DM1Uly3UxLAnlXSRAVChrFX5dpiBkEHAmSg8UA7eZEzotABWyHPUbPN HvZKKeMYPgKCT1BQTaNONkXiJgBfClNe0mVWRyJnCeADJiXLH4JKKoUJV3GIDcDLG9BpHnLQHiZtH0Zb HuLU3XFp7BZwZ6WJQ2eFJhXw5OSFD8AKzYCvUxYS0XEZj= ID Date Data Source [id number] 01/28/2020 06:01:10 PM EDT [facility] Name Value Range Interpretation Code Description Data Savi rce(s) Supporting Document(s) Discharge Summary [facility] VIKGVa2uEaMXVjUn37/AQZwiOEIzd7GcJLxoNLy8LKlwBNLyS6JdUFO4yA6xCIW6NOpSBrFcBjLvPCEj lbm [file] AdRwIa2JEOUTS0DXFd== ID Date Data Source [id number] 01/27/2020 06:08:37 AM EDT [facility] Name Value Range Interpretation Code Description Data Savi e(s) Supporting Document(s) Leukocytes [#/volume] in Blood by Automated count 9.6 10*3/uL 4-10 [facility] Erythrocytes [#/volume] in Blood by Automated count 4.35 10*6/uL 4.6- 6.1 L [facility] Hemoglobin [Mass/volume] in Blood 12.3 g/dL 13.5-18 L [facility] Hematocrit [Volume Fraction] of Blood by Automated count 37.1 % 4 1-53 L [facility] Erythrocyte mean corpuscular volume [Entitic volume] by Auto mated count 85.3 fL 80-96 [facility] Erythrocyte mean corpuscular hemoglobin [Entitic mass] by Automated count 28.4 pg 27-33 [facility] Erythrocyte mean corpuscular hemoglobin concentration [Mass/volume] by Automated count 33.3 g/dL 32.0-36.0 [facility] Erythrocyte distribution width [Ratio] by Automated count 15.5 % 11.5-14.5 H [facility] Platelets [#/volume] in Blood by Automated count 129 10*3/uL 150-400 L [facility] ID Date Data Source [id number] 01/27/2020 06:13:44 AM [facility] Value Range Interpretation Code Description Data Savi rce(s) Supporting Document(s) Prothrombin time (PT) 13.7 s 12.5-14.9 [facility] INR in Platelet poor plasma by Coagulation assay 1.04 [facility] Routine intensity oral anticoagulation I NR is typically 2.0-3.0. Target INR must be clinically individualized. ID Date Data Source [id number] 01/27/2020 06:13:44 AM [facility] Value Range Interpretation Code Description Data Savi rce(s) Supporting Document(s) Heparin unfractionated [Units/volume] in Platelet poor plasma by Chromogenic method 0.43 U/ml [facility] ID Date Data Source [id number] 01/27/2020 06:28:03 AM [facility] Value Range Interpretation Code Description Data Savi rce(s) Supporting Document(s) Natriuretic peptide.B prohormone N-Terminal [Mass/volu me] in Serum or Plasma 1872 pg/mL <125 H [facility] ID Date Data Source [id number] 01/27/2020 06:28:03 AM [facility] Value Range Interpretation Code Description Data Savi rce(s) Supporting Document(s) Bicarbonate [Moles/volume] in Serum 23 mmol/L 22-29 [facility] Chloride [Moles/volume] in Serum or Plasma 103 mmol/L 98-107 [facility] Creatinine [Mass/volume] in Serum or Plasma 1.21 mg/dL 0.70-1.20 H [facility] Glucose [Mass/volume] in Serum or Plasma 93 mg/dL 70-140 [facility] Potassium [Moles/volume] in Serum or Plasma 3.9 mmol/L 3.4-5.1 [facility] Sodium [Moles/volume] in Serum or Plasma 138 mmol/L 136-145 [facility] Urea nitrogen [Mass/volume] in Serum or Plasma 8 mg/dL 6-20 [facility] Anion gap 3 in Serum or Plasma 12 mmol/L 8-15 [facility] Osmolality of Serum or Plasma by calculation 284 mosm/kg 275-300 [facility] Creatinine/Urea nitrogen [Mass Ratio] in Serum or Plasma 7 [facility] Calcium [Mass/volume] in Serum or Plasma 8.5 mg/dL 8.6-10.0 L [facility] Glomerular filtration rate/1.73 sq M pre dicted among non-blacks [Volume Rate/Area] in Serum or Plasma by Creatinine-based formula (MDRD) 70 mL/min/1.73m2 >60 [facility] Glomerular filtration rate/1.73 sq M pre dicted among blacks [Volume Rate/Area] in Serum or Plasma by Creatinine-based formula (MDRD) 81 mL/min/1.73m2 >60 [facility] ID Date Data Source [id number] 01/26/2020 11:21:16 PM EDT [facility] Name Value Range Interpretation Code Description Data Savi rce(s) Supporting Document(s) Heparin unfractionated [Units/volume] in Platelet poor plasma by Chromogenic method 0.35 U/ml [facility] ID Date Data Source [id number] 01/26/2020 05:41:39 PM [facility] Name Value Range Interpretation Code Description Data Savi rce(s) Supporting Document(s) [facility] EINVQp2hDgYOOqKx38/HEDfoYEKkb1LyVUxyYCa1ZXunEWRjP4TlJIH4aH4zXCR2GIrSScVbVbRuFYG4 [facility] [file] LANcmvj3b8Yj5+processing manager+wKn4m7lCSLHxy91w4JQqYc0MT [file] CHSkGXLlInGwFRM7C2BiTnI0LY7tTASQIh1+JPkwdJNerYieFWDNPwN0XCS2ZNpuOBWDIo4N ID Date Data Source [id number] 01/26/2020 05:57:52 PM [facility] Name Value Range Interpretation Code Description Data Savi rce(s) Supporting Document(s) Heparin unfractionated [Units/volume] in Platelet poor plasma by [facility] [id number] 01/26/2020 11:46:08 AM [facility] Value Range Interpretation Code Description Data Savi rce(s) Supporting Document(s) Heparin unfractionated [Units/volume] in Platelet poor plasma by Chromogenic method [facility].14 [facility] Data Source [id number] 01/26/2020 03:50:27 AM [facility] Value Range Interpretation Code Description Data Savi rce(s) Supporting Document(s) Leukocytes [#/volume] in Blood by Automated count 10.5 10*3/uL 4-10 H [facility] Erythrocytes [#/volume] in Blood by Automated count 4.37 10*6/uL 4.6- 6.1 L [facility] Hemoglobin [Mass/volume] in Blood 12.3 g/dL 13.5-18 L [facility] Hematocrit [Volume Fraction] of Blood by Automated count 37.2 % 4 1-53 L [facility] Erythrocyte mean corpuscular volume [Entitic volume] by Auto mated count 85.3 fL 80-96 [facility] Erythrocyte mean corpuscular hemoglobin [Entitic mass] by Automated count 28.2 pg 27-33 [facility] Erythrocyte mean corpuscular hemoglobin concentration [Mass/volume] by Automated count 33.0 g/dL 32.0-36.0 [facility] Erythrocyte distribution width [Ratio] by Automated count 15.4 % 11.5-14.5 H [facility] Platelets [#/volume] in Blood by Automated count 113 10*3/uL 150-400 L [facility] ID Date Data Source [id number] 01/26/2020 04:03:44 AM [facility] Value Range Interpretation Code Description Data Savi rce(s) Supporting Document(s) Heparin unfractionated [Units/volume] in Platelet poor plasma by Chromogenic method 0.37 [facility] Data Source [id number] 01/26/2020 04:03:44 AM [facility] Name Value Range Interpretation Code Description Data Savi rce(s) Supporting Document(s) Prothrombin time (PT) 14.3 s 12.5-14.9 [facility] INR in Platelet poor plasma by Coagulation assay 1.10 [facility] Routine intensity oral anticoagulation I NR is typically 2.0-3.0. Target INR must be clinically individualized. ID Date Data Source [id number] 01/26/2020 04:03:51 AM [facility] Value Range Interpretation Code Description Data Savi rce(s) Supporting Document(s) Bicarbonate [Moles/volume] in Serum 21 mmol/L 22-29 L [facility] Chloride [Moles/volume] in Serum or Plasma 105 mmol/L 98-107 [facility] Creatinine [Mass/volume] in Serum or Plasma 1.21 mg/dL 0.70-1.20 H [facility] Glucose [Mass/volume] in Serum or Plasma 111 mg/dL 70-140 [facility] Potassium [Moles/volume] in Serum or Plasma 3.9 mmol/L 3.4-5.1 [facility] Sodium [Moles/volume] in Serum or Plasma 136 mmol/L 136-145 [facility] Urea nitrogen [Mass/volume] in Serum or Plasma 9 mg/dL 6-20 [facility] Anion gap 3 in Serum or Plasma 10 mmol/L 8-15 [facility] Osmolality of Serum or Plasma by calculation 282 mosm/kg 275-300 [facility] Creatinine/Urea nitrogen [Mass Ratio] in Serum or Plasma 8 [facility] Calcium [Mass/volume] in Serum or Plasma 8.2 mg/dL 8.6-10.0 L [facility] Glomerular filtration rate/1.73 sq M pre dicted among non-blacks [Volume Rate/Area] in Serum or Plasma by Creatinine-based formula (MDRD) 70 mL/min/1.73m2 >60 [facility] Glomerular filtration rate/1.73 sq M pre dicted among blacks [Volume Rate/Area] in Serum or Plasma by Creatinine-based formula (MDRD) 81 mL/min/1.73m2 >60 [facility] ID Date Data Source [id number] 01/25/2020 08:46:27 PM EDT [facility] Name Value Range Interpretation Code Description Data Savi rce(s) Supporting Document(s) Heparin unfractionated [Units/volume] in Platelet poor plasma by Chromogenic method [facility] Date Data Source [id number] 01/25/2020 03:04:44 PM EDT [facility] Name Value Range Interpretation Code Description Data Savi rce(s) Supporting Document(s) [facility] ULDTFp9jTvGUQuPr60/JYOsbXTWcs5GqAFodOJg6SJmaQUOsQ1RbQYK7eJ8vTIJ9QHmJJqOqEfKbLBD2 lbm [file] bnKYIqOGPdIkTyNM9cGNMPYa4+PRndtNTqbHmeKEVNWuC6XcO1IFolOYWLNe7V ID Date Data Source [id number] [facility] Interpretation Code Description Data Savi rce(s) Supporting Document(s) Heparin unfractionated [Units/volume] in Platelet poor plasma by Chromogenic method 0.29 U/ml [facility] ID Date Data Source [id number] 01/25/2020 05:26:45 AM [facility] Value Range Interpretation Code Description Data Savi rce(s) Supporting Document(s) Leukocytes [#/volume] in Blood by Automated count 10.7 10*3/uL 4-10 H [facility] Erythrocytes [#/volume] in Blood by Automated count 4.40 10*6/uL 4.6- 6.1 L [facility] Hemoglobin [Mass/volume] in Blood 12.5 g/dL 13.5-18 L [facility] Hematocrit [Volume Fraction] of Blood by Automated count 37.9 % 4 1-53 L [facility] Erythrocyte mean corpuscular volume [Entitic volume] by Auto mated count 86.1 fL 80-96 [facility] Erythrocyte mean corpuscular hemoglobin [Entitic mass] by Automated count 28.5 pg 27-33 [facility] Erythrocyte mean corpuscular hemoglobin concentration [Mass/volume] by Automated count 33.0 g/dL 32.0-36.0 [facility]th[facility] distribution width [Ratio] by Automated count 15.4 % 11.5-14.5 H [facility] Platelets [#/volume] in Blood by Automated count 109 10*3/uL 150-400 L [facility] ID Date Data Source [id number] 01/25/2020 05:36:28 AM EDT [facility] Name Value Range Interpretation Code Description Data Savi rce(s) Supporting Document(s) Heparin unfractionated [Units/volume] in Platelet poor plasma by Chromogenic method 0.28 U/ml [facility] ID Date Data Source [id number] 01/25/2020 05:36:28 AM EDT [facility] Name Value Range Interpretation Code Description Data Savi rce(s) Supporting Document(s) Prothrombin time (PT) 14.5 s 12.5-14.9 [facility] INR in Platelet poor plasma by Coagulation assay 1.12 [facility] Routine intensity oral anticoagulation I NR is typically 2.0-3.0. Target INR must be clinically individualized. ID Date Data Source [id number] [facility] Code Description Data Savi rce(s) Supporting Document(s) Bicarbonate [Moles/volume] in Serum 25 mmol/L 22-29 [facility] Chloride [Moles/volume] in Serum or Plasma 103 mmol/L 98-107 [facility] Creatinine [Mass/volume] in Serum or Plasma 1.36 mg/dL 0.70-1.20 H [facility] Glucose [Mass/volume] in Serum or Plasma 106 mg/dL 70-140 [facility] Potassium [Moles/volume] in Serum or Plasma 4.3 mmol/L 3.4-5.1 [facility] Sodium [Moles/volume] in Serum or Plasma 137 mmol/L 136-145 [facility] Urea nitrogen [Mass/volume] in Serum or Plasma 13 mg/dL 6-20 [facility] Anion gap 3 in Serum or Plasma 9 mmol/L 8-15 [facility] Osmolality of Serum or Plasma by calculation 284 mosm/kg 275-300 [facility] Creatinine/Urea nitrogen [Mass Ratio] in Serum or Plasma 10 [facility] Calcium [Mass/volume] in Serum or Plasma 8.1 mg/dL 8.6-10.0 L [facility] Glomerular filtration rate/1.73 sq M pre dicted among non-blacks [Volume Rate/Area] in Serum or Plasma by Creatinine-based formula (MDRD) 61 mL/min/1.73m2 >60 [facility] Glomerular filtration rate/1.73 sq M pre dicted among blacks [Volume Rate/Area] in Serum or Plasma by Creatinine-based formula (MDRD) 70 mL/min/1.73m2 >60 [facility] ID Date Data Source [id number] [facility]2020 07[facility]53[facility] Interpretation Code Description Data Savi rce(s) Supporting Document(s) Natriuretic peptide.B prohormone N-Terminal [Mass/volu me] in Serum or Plasma 3004 pg/mL <125 H [facility] ID Date Data Source [id number] 01/24/2020 09:35:29 PM [facility] Value Range Interpretation Code Description Data Savi rce(s) Supporting Document(s) Leukocytes [#/volume] in Blood by Automated count 11.2 10*3/uL 4-10 H [facility] Erythrocytes [#/volume] in Blood by Automated count 4.50 10*6/uL 4.6- 6.1 L [facility] Hemoglobin [Mass/volume] in Blood 12.9 g/dL 13.5-18 L [facility] Hematocrit [Volume Fraction] of Blood by Automated count 38.0 % 4 1-53 L [facility] Erythrocyte mean corpuscular volume [Entitic volume] by Auto mated count 84.5 fL 80-96 [facility] Erythrocyte mean corpuscular hemoglobin [Entitic mass] by Automated count 28.7 pg 27-33 [facility] Erythrocyte mean corpuscular hemoglobin concentration [Mass/volume] by Automated count 34.0 g/dL 32.0-36.0 [facility] Erythrocyte distribution width [Ratio] by Automated count 15.4 % 11.5-14.5 H [facility] Platelets [#/volume] in Blood by Automated count 108 10*3/uL 150-400 L [facility] ID Date Data Source [id number] 01/24/2020 09:56:55 PM [facility] Value Range Interpretation Code Description Data Savi rce(s) Supporting Document(s) Heparin unfractionated [Units/volume] in Platelet poor plasma by Chromogenic method [facility] ID Date Data Source [id number] 01/24/2020 09:56:55 PM [facility] Value Range Interpretation Code Description Data Savi rce(s) Supporting Document(s) Prothrombin time (PT) 14.9 s 12.5-14.9 [facility] INR in Platelet poor plasma by Coagulation assay 1.15 [facility] Routine intensity oral anticoagulation I NR is typically 2.0-3.0. Target INR must be clinically individualized. ID Date Data Source [id number] 01/24/2020 05:39:04 PM EDT [facility] Name Value Range Interpretation Code Description Data Savi rce(s) Supporting Document(s) History and Physical [facility] KFMTHg7mLgWWNzDq24/EVSbePVOfu8PvDTlwDLy3YFesHNJbR3KlJBZ7lK1pMUK5YRrTJkHqCmBvJBE5 lbm [file] AgICAgICAgICAgICAgICAgICAgICAgICAgICAgICAg ICAgICAgICAgICAgICANCiAgICAgICAgICAgICAgICAgICAgICAgICAgICAgICAgICAgICAgICAgICAg ICAgICAgICAgICAgICAgICAgICAgICAgICAgICAgICAgICAgICAgICAgICAgICAgICAgICAgICANCiAg ICAgICAgICAgICAgICAgICAgICAgICAgICAgICAgIC AgICAgICAgICAgICAgICAgICAgICAgICAgICAgICAgICAgICAgICAgICAgICAgICAgICAgICAgICAgIC AgICAgICANCiAgICAgICAgICAgICAgICAgICAgICAgICAgICAgICAgICAgICAgICAgICAgICAgICAgIC AgICAgICAgICAgICAgICAgICAgICAgICAgICAgICAg ICAgICAgICAgICAgICAgICANCiAgICAgICAgICAgICAgICAgICAgICAgICAgICAgICAgICAgICAgICAg ICAgICAgICAgICAgICAgICAgICAgICAgICAgICAgICAgICAgICAgICAgICAgICAgICAgICAgICAgICAN CiAgICAgICAgICAgICAgICAgICAgICAgICAgICAgIC AgICAgICAgICAgICAgICAgICAgICAgICAgICAgICAgICAgICAgICAgICAgICAgICAgICAgICAgICAgIC AgICAgICAgICANCiAgICAgICAgICAgICAgICAgICAgICAgICAgICAgICAgICAgICAgICAgICAgICAgIC AgICAgICAgICAgICAgICAgICAgICAgICAgICAgICAg ICAgICAgICAgICAgICAgICAgICANCiAgICAgICAgICAgICAgICAgICAgICAgICAgICAgICAgICAgICAg ICAgICAgICAgICAgICAgICAgICAgICAgICAgICAgICAgICAgICAgICAgICAgICAgICAgICAgICAgICAg ICANCiAgICAgICAgICAgICAgICAgICAgICAgICAgIC AgICAgICAgICAgICAgICAgICAgICAgICAgICAgICAgICAgICAgICAgICAgICAgICAgICAgICAgICAgIC AgICAgICAgICAgICANCiAgICAgICAgICAgICAgICAgICAgICAgICAgICAgICAgICAgICAgICAgICAgIC AgICAgICAgICAgICAgICAgICAgICAgICAgICAgICAg ICAgICAgICAgICAgICAgICAgICAgICANCjw/lEJxN5ircFImsmN9W1kiSv5BVd2AFX8rz3EjWHYdEJgd ukMpPziCWnPpVVGbWxlCVzd3WEddAO0JaGZcK4MbP4IiLZsqZO2HSGZeFGFqwMMdZDPiSLCnCsQ8JSFq IPnaFI1OiZEwJEtmCENuEYMgSeHmDYJbETPdVZTmIH BjCSNMYBTrTQYdKyKyIWuuOG0Pj5QjtDD5FGr+Lk5PWC8bp8DzGQhxVCHqPN1hum6SIWgXLfAsS0Yvvo U6UODePDFdGn1DSFMiWGMvuTH5BWAnNRESTaWwF7BcuP06JRKKCy4+WBiijeNbMgoYAxAdUNThf6CtLJ u8GE5YFMTtRWp0eFXfXVGVAYX4DTZanJCcCHTxX7vw xuwyAAPqLTLaXC5aJx4zICArJJWeZdPoJYIKJR2WSCXvPTOjdUHyUBLgPOBXCX3WBSjpBZD2ZXOzupJc wUQdNPywNZ5NWXDuzsVoBwfuRELIJEw+Hx1EHE9di8UxJVn6LSDyYQ4xei7AAJhEPpWjY8W6jITyX9C3 ERlrQu2NHXGdVINxLafpUXECILqvUF3SNB1qmcQ8UK 2TvWZiZMAfWWArxCJfIPt3D21tfLBnATbcGO1SROE+Estefani+Iz9KASVsRBIgNGEdGrXnTINOViPaM8ZvS7 DAv1DdW3KuKU53wJsnjyCgVYfeAD7GOJ3gSXXlERFRHZ5FtFAtjR8ihvAwJSMpDJKRHtCkR03efPOaHS GtAHK5KYDxKl7DCJPoI6JvxlXaoZwgvfBvTANrVVPE LR7YWHjcnzPnlMJweCydUE91dCikWY1LAa9FQjThXC9ufg8UaOCnWk1UXTK2Ur8WCXRlVPBoQOVnVSW6 GBEeByAeCVlhCPMhTRCrQDK4RSAaITKtHR7AAiJqROJvBgUvSDyzWHJsDSSjup3DYPDhGBVvCxu6DdXz RDBnAMLuHPquWXWoQKFwMVF1SKUaYNVeKC4HUlShAA PnLHZ3MUzaOEBkNFSawx5LXBSuFQUyUda9DGGgSFBxFZZlBAmbRJVdIVO9WmN7EGZhHJKjJY5RWdHvBH GgCJd2FpyiHAJyOVAoda1WAOKdZPIwREa9UbIdDNFkDYHaPVgzHGFyRJEeDLwbESAhJQImFC4AKyWrJF TcGERkDgPfEKAcXNUaen5RGUFuIZXfVSXuXFHyXEUy YZDxBIgdEYXhAAC8IOldKTQqAFTkLI8PYiEcPKRwHSN6QRjpIAOqCTReba6GAWTmOHXrFor1DBWtJWSi ZBVsTXfmNYPySDN8GUK3JQEwZRBwCH2FXcZcPOKoWVzdWgbyTWHoQJTfdn8RTVTzHBOcNCD0ElOdNFHf OQExASksBQZtKEQ6Hnt7GFJmKSDvMU9BXqOjFIUcBB e2JTfxNFYzNAXhqy0WHXGjHFLfCID2GoDfRTIeIUQfMXhwZBYwHQZ8MxP5KUOvWHQkBG7YVpMhNEZrAD w9MaAoCQDzCKVyub0MCJVhUWCsITn2KaEsQRKhZNAbJNudXXNjPPXtTUptHPAzOKMlRJ4QMrWlGLEiLs OiMtOfMAGmKSBzkg6UDEQhOSYwJbCeLrJdRNCnTHLm DIjjCQJvRIZgKtLpONAfFUSgLX0HViOuKZIkVhQ5GeEvNQCmTSDmpi1VQNZgYHClPomzWXUuMJPpBLHm NQwkAFZuJUI6JaGmKQDaWGEpTV8WZeJcFXFpGeT8FXLhYFWpOJPztt7NNWLgRUDtZCL2MDLtRQDoWVCu RXbjYPKeLUV7QAY6NCIzJRUtFF8ILlOuYZVeCgM0Lk ZrNTDxQYUdee7VQDGdLHZoOWt5JWHaWDSwAIXtYQkhFCBcVBT0NNY7SHCeGGPcBP5FTlAmWLKuCjR8ZZ TzWTBcWUVkks7NRNMdEIYnOZU5SoFlJRCxTNPhTFdaIEEgDCG1XTU2YCEkKQBeHY3HJiZlZKQqYznqLv QpIOJgFCVivk2PrBYjnNkgcr8FFQjVEx2JwUxjAHRb JTsgSe8cbGN0OIKjGELRTu5UhvMzVYEeVVDJARdeMIQpWMIdIbUqByI9ZVU9LnDrMHbxCoFlABTuZMrw UVPeIXZ3VjR7OrFtZTKyYxq8MWY6EYD6JQDyH1U0TaYzGCRuRdN1VoN+PF7tWYt+Pb6Hw3TtehI0rnNh BBbdZQGoTh9ALMBBS0PLIn== ID Date Data Source [id number] 01/24/2020 02:12:14 PM EDT [facility] Name Value Range Interpretation Code Description Data Savi rce(s) Supporting Document(s) Heparin unfractionated [Units/volume] in Platelet poor plasma by Chromogenic method [facility] ID Date Data Source [id number] 01/24/2020 08:45:18 AM EDT [facility] Name Value Range Interpretation Code Description Data Savi rce(s) [facility]GRAAk3gIuVUSzVgi3UtGkAtFLLtUD6ihyl6W2S0uRMzS4VhjRCgm6rbJ5DaY9JhJJCbXWZVKQ4HfCZq jb2 [file] //kDA4m43V+jfy1G7pNn5bx5883Q/fv3696I11/NU3f+Zn9xx8/+il04765Psi6x0zl203//GrL97+/u 2/v/vx/xseA933z+8/uJUsu7ox39/78vs/839pz/+/ //C3Q95762ilA+4/m5393mgddTce0wtFR//jTtB1//N32p44C8/1E559R1H9/9uvP7z/8ieaDu58/fL7 t3c/tigs85b//Pr9n/iTYqcsC69icc/8y+/+9Puf/vntn/4a5qbtey394KvH1273/brg27p2456ilmp4 q/dfv/8mI2z6c692++Pi3aqU1x/YT3F+4o5m4kt66/ wXi+/Ao/3M7fe//8W/8dJrSsFyveDf/ws2dirozWO726e/F+D+GbzC9HcA0zeWXQQhWi4mc23hGSM22H sGm127QZwU8+uLV4d+f97ggD8y1d0Ey7/+5ac//Cdd4QM7qt++f70kb//tV+++/aSl7ZO/lJF/ef8nzf vvtyk2MN6p/zFLy4bGeroVCczgcNuaYD/+9Id//5u3 P/3m33/65OyvKfItEubcP/p0p3VESgAJw278D/76w9vv/vDvP/3pf//mX//W6J08Yq809RclER+fn/1g f//h+7d//o/Xvf/uj3/4+wi4xeqviY4N0BV///EXf//bm6wP59GgdJospMt0D0w/WAiIUTub0M4/vt0A cIy2yhGnyY3/v6uD/fraW805oBbV//np3/7rm/M8N/ YDmx2vc7/g9VIba2/723/+6R//6me/Ps/hm9/39hjGk49DmpYt//jtb/7td7/5w8/+qwpp7Mw/+Pn/n/ dw+L/+03/318RHH6/84+8//+QciuUK3a29t15+/snUsDfRRLmBG//402//5x9+99vX/X3+JveWyvGz3+ 7SHvHbf/o1Z3r3327//f6/Xm/Krm5j83915q01Q5// nDPWPQ3+/39yf/Jamar+eA++vf/I+f3uTtj//azmpgo3GEX7Y4pt7/DRUvpvv+y4+vEeMeEN/Ew5481kZB 7z+8GtWb3+HN8ml0J7957ddiV186pvN5jj7Be19z/v5LOA5MAfYuVHE8aqCeoEncikWgGbgKKUriRXNz Ftr8ND9VcHEtAGIaT1N9JVCitg8fJHLsQPXydDOyIo KbLEGYDR7NzPXfJZ3AWLs5PNJePATxKnWcQVVqxlL8CPSjNMErYOHuH0UrznEkpPYlTXIpFh6+ZW5kb2 GfCtGzOBTiGmk6QG4TwPWlNF3AtPGslS3kcpBkV406pwHkTACgRkwww8JsZAipJABZEV0QMQH2DQA2ZR AgUj4+CO0nc9CnWvPxBGQsFuf2NE1FvSMsx3AeNA4W N7VnVKFiCMFLJPH5u6VgISYgkuyjsmcpH1CqFJK1xE9pBKX0REMuSIopEIGsHMEiYlB5QQIvDGolJCZf LQRkXPLaPAZaQKf7oSApMC6OZ9AdREClSRWAOWWxntRgHq5tYNRLGWEICFUHHGTLNpJHXQMgXCC0JuY6 YVXsI3BleyDhzISiBVALULscVrflFLNubK7gqXxgN7 KqZWY8m9ZtAZ6ZR3YtEHRyAATIELT4a3XgXOTflhhpsxogPgExJRTyUPCwBQBkBL1Plt1wdDWdecZwKY SQAMikMvpkQG7heEpkzlerT8McfVLcOHQ+TlXrIL0unq6+VmCeVNHdXwf7WTYbIQirVNYkNYUsJJBdG4 bdWOKwYuOwZAZxMfGtPM7Vb4UbdBGfMe9ypcIkUusT sEOhNnctMMOkTRCxBSEjDnYZNGQxSMKaINZcGYG7JEMvHZLdPBysGBOjSUB8WQfnRFKvCMOiDO2pEqUy OJEnNnUmYRjoYDGvBGGmbuOTACSxGSF2PERkCxFuJQXfVCOnEClaUOCrUIJjBBHbTDW7CZX3SGPyBiVq OYOpYBGrJEMqYESiQONzpeARBJApTVNmZFW3TSNdSM UdSHBrJFykOJDcYLMeOAwiYNMoDEBkBE6pWiNkOGTyQBRoDEehKQOxJGJbfnYCUVCaRULbWFPvOPFyDM UqCBBuAUusAGMdTICzWTFoRKCwKBCnUK7nFiKiGRIcFJS0WSPhFHYfUPYmdrUQMVOyDEJpKGb3SUJaSO FnPRCdELfkJYIyIZXkBJM9IHXiAFWvOT4sLzSwXMHl EQK0CfUfEAHbBMRtwqLYEMEhXHZjVQZ5OeZyELLdSNCfSLgcXTNlQJVtUEtpQEYtIHArUH5kKeGzRPNi KVQbPDxkAPTuLJEotvDUOZVfRGNxPAUkZeKnZBGdWKTeMYnoJBBmKIU6GCC8OXBxPRDdDT9aUlFhBIAu MJQ3HQtrMEYiDFWpiaFQVOZjFALrDBrzEOFpQOQqRT OrMAbnIUVlCEIfEYM0ZAOrQEDzKT3rMaPsJTPlCXEoJYUqFrT7JjVrKmBFfWNrwJqzkjl3UHjzS2r3PJ OcYBsiSM4fmaMtDQHsAohkXe4yzDX0SLPlIqcDEk7Af0AlylP9crPlWyP6FNS8SiSuHJ7G ID Date Data Source [id number] 01/24/2020 06:59:29 AM EDT [facility] Name Value Range Interpretation Code Description Data Savi rce(s) Supporting Document(s) Consultation [facility] BBINGc5zCyQCRpRt50/GAIafYCUqw6JjDSzgHLg4NYsnXEKgS2ArAGW3eZ5aWMM7ENtJGoEwZpVkOWY2 lbm [file] AgICAgICAgICAgICAgICAgICAgICAgICAgICAgICAgICAgICAgICAgICAgICANCiAgICAgICAgICAgIC AgICAgICAgICAgICAgICAgICAgICAgICAgICAgICAg ICAgICAgICAgICAgICAgICAgICAgICAgICAgICAgICAgICAgICAgICAgICAgICAgICAgICAgICANCiAg ICAgICAgICAgICAgICAgICAgICAgICAgICAgICAgICAgICAgICAgICAgICAgICAgICAgICAgICAgICAg ICAgICAgICAgICAgICAgICAgICAgICAgICAgICAgIC AgICAgICANCiAgICAgICAgICAgICAgICAgICAgICAgICAgICAgICAgICAgICAgICAgICAgICAgICAgIC AgICAgICAgICAgICAgICAgICAgICAgICAgICAgICAgICAgICAgICAgICAgICAgICANCiAgICAgICAgIC AgICAgICAgICAgICAgICAgICAgICAgICAgICAgICAg ICAgICAgICAgICAgICAgICAgICAgICAgICAgICAgICAgICAgICAgICAgICAgICAgICAgICAgICAgICAN CiAgICAgICAgICAgICAgICAgICAgICAgICAgICAgICAgICAgICAgICAgICAgICAgICAgICAgICAgICAg ICAgICAgICAgICAgICAgICAgICAgICAgICAgICAgIC AgICAgICAgICANCiAgICAgICAgICAgICAgICAgICAgICAgICAgICAgICAgICAgICAgICAgICAgICAgIC AgICAgICAgICAgICAgICAgICAgICAgICAgICAgICAgICAgICAgICAgICAgICAgICAgICANCiAgICAgIC AgICAgICAgICAgICAgICAgICAgICAgICAgICAgICAg ICAgICAgICAgICAgICAgICAgICAgICAgICAgICAgICAgICAgICAgICAgICAgICAgICAgICAgICAgICAg ICANCiAgICAgICAgICAgICAgICAgICAgICAgICAgICAgICAgICAgICAgICAgICAgICAgICAgICAgICAg ICAgICAgICAgICAgICAgICAgICAgICAgICAgICAgIC AgICAgICAgICAgICANCiAgICAgICAgICAgICAgICAgICAgICAgICAgICAgICAgICAgICAgICAgICAgIC AgICAgICAgICAgICAgICAgICAgICAgICAgICAgICAgICAgICAgICAgICAgICAgICAgICAgICANCjw/eH QdT4cwwRKzlmM8V1ldOg1WTq9RFS2kn6BjVFAcJNtk vlSuNtlWOkHfXTWqYbcFPey2XNwuIK5DaJPkO0SlJ6OfCJjjKG5ROAPxKSUwzMWtPSSoFZLfRvS7JFUe XHchGS5LqOZqLGsrBGMwIFRkFjAhCNLcAUSpWYMuZEVpJEAULP8CDtEaI6NwkF63CVIHFl2+DQplbmRv GhaDOqQ1SSAva5YrKMe5RL1FMHHqPfgny9DqPzDlXG QJDEkmVI9UQLQ6BKM6YWEoIp4HIPSuP645hvQuZN8BDm8YNgTzDQ9jij8OPfVsJANaEeuLBsi0WYchFU 7AyRUgIDyKl53pxIf7qcEetABJKARcz6pnXXWjqBCeAZZNPbRXBMZ7GDUuAjqjAiMdZCSvNSzxHVNHZU uLNgDdJ9Dfm0QsNaQ5DXNoKbMhLTnqWCYxBrZ5YR75 eIjqCB8FXHEhGQRnDO52BZC1GMTrVk7XOw7MJpJcFC9gqr1ETmEyOZMlQgrBUet8KVoeJT3QwZBdV2Bp rZNat6ePVmMmZ5CRHPNlNDMyYk2RGAQfKpIrMGNsMOsbYD7pSMExMNWNuFawcdQ5XT8AEU7astZtOJ0L ImPtUt2lWd8MVwCuX0InY4MnURIoSQIJRJukFV4NNA tuFZ7nMO3Yt7YDmWEplU5psu1NIVSzPAUkDnlszu5AMgaeF1M2mZdgJETgAtTtEJQEQXvqAH9YZGBxRB D8RRJcGrNhYALRMjJrH78qGC3OX2Hug71vGlO8MYZdNnZlDXhwOY29lHjfjgCgrHWrwEwtPP2FQv3+DQ plbmRvYmoNCnhyZWYNCjAgMzcNCjAwMDAwMDAwMDAg HiG3TgXrVa8FEQFpKIExJLZwAyDuLFFzPKQuRVfsURTpRRK2UcCcRVLjKOQeUB0UKtRiCBMxVdQ8UIoj KJWrFPOuhf9SHGNuDOSsWGN1TuPaOEOkZQPsLQnkFVImHOKqZAViVFGxJMQaCQ9IGgSbKWYbVPMeWfLt DYLlIDNvek1HZMTnUQWeBnMeGOPzJXMdMHJoVRnaAA StVCL0KFA2ORIzLIVlOF1YVtHdZDMyVAa1KCXbFRDrQNWwlu3UVZQaIFRaQDs3NCDiQQZuVRQnMElyPX ShJLDrFSD4MLQyFWFfQH6IOjIlTKEvYPT3JDZeMPKcXUKyrt2UVZSyJBTwOJmwRRQzWBWuTYReVPguBM IuYQQjLFNiTFAvACNzEC4RRsMkFERyFLZvYLOuTTTv KQGbrk6POXYzJISlOuM0LITvEYOtJSIcROtzIDRqISBcKaU3HUJeEFZmOM0BJvLbUZQwATG5MdQkXAZd USTgnl4XHJHuSZHoJJW3PyYlPTEeEBByMKtrRAVzBXQ4UWq4BCLjSGHuCF8LFtOgFQYsNWW2BBTeRPYk ODXqlf9RMYHcNJSxFZn3PeGxSEJvUATmSVthQMHvPN I8SPKiNZRgZEYsWT8TRiRfXZZmBYPpDoYfQTHxIMUusn7NJEHcHNGlOiPnOSDxATVwADDbCObwMESoZJ I2VLJ3VHAqKXXpFX8UWqMzNBNrNbknMoYnWGCvGSApwu8AGMMtIQFhNUI6LPNnRKVvIXRfBLlqGWUiAM B4ETJyCDLeBRNzOX7RChRxAOCxFsfnNeMmKALgBRCn ps7YDNVpNKNpZVL5QgCyEBXfOHPiPKvcLVXnHOJ4LkBoCBSlIDXnWL0PHkBbCGShGaDxCvisPBJjVRSs ty8WGMCyBOWuLDGqViOuUGCbPTPnAMtcHQYaWPLqTcU0KATwUSZhAU0ULySrUAMaJbN0PRXjKNOoGGAd eu1GtKGynPclyv9UGRuGJm0AtCyoLRU8HTcmAh9ktD GvUyVgYCSZTj0AgtQvMIZpMXPUBHqdFXMxHCMoOFLuDsY4UQAwTkOaUGk5BvufOxNgUZZpHHO7CBNeNr V4ERVfXeSbEKU9SsTfCTH6GxUkE6KqZRThM7KpIoeeCiB+PY8hIEb+Qk8Bm5HhmrQ4pbPlFUrxLrT8ZH 4XBFYNE4KZGx== ID Date Data Source [id number] 01/24/2020 06:05:29 AM EDT [facility] Name Value Range Interpretation Code Description Data Savi rce(s) Supporting Document(s) Leukocytes [#/volume] in Blood by Automated count 13.1 10*3/uL 4-10 H [facility] Erythrocytes [#/volume] in Blood by Automated count 5.28 10*6/uL 4.6- 6.1 [facility] Hemoglobin [Mass/volume] in Blood 14.7 g/dL 13.5-18 [facility] Hematocrit [Volume Fraction] of Blood by Automated count 45.0 % 4 1-53 [facility] Erythrocyte mean corpuscular volume [Entitic volume] by Auto mated count 85.2 fL 80-96 [facility] Erythrocyte mean corpuscular hemoglobin [Entitic mass] by Automated count 27.9 pg 27-33 [facility] Erythrocyte mean corpuscular hemoglobin concentration [Mass/volume] by Automated count 32.7 g/dL 32.0-36.0 [facility] width [Ratio] by Automated count 15.5 % 11.5-14.5 H [facility] Platelets [#/volume] in Blood by Automated count 117 10*3/uL 150-400 L [facility] Differential cell count method - Blood [facility] Neutrophils/100 leukocytes in Blood by Automated count 61 % [facility] Lymphocytes/100 leukocytes in Blood by Automated count 28 % [facility] Monocytes/100 leukocytes in Blood by Automated count 7 % [facility] Eosinophils/100 leukocytes in Blood by Automated count 3 % [facility] Basophils/100 leukocytes in Blood by Automated count 1 % [facility] Neutrophils [#/volume] in Blood by Automated count 8.07 10*3/uL 1.8-7 .0 H [facility] Lymphocytes [#/volume] in Blood by Automated count 3.68 10*3/uL 1.2-4 .0 [facility] Monocytes [#/volume] in Blood by Automated count 0.85 10*3/uL 0-0.8 H [facility] Eosinophils [#/volume] in Blood by Automated count 0.40 10*3/uL 0-0.5 [facility] Basophils [#/volume] in Blood by Automated count 0.10 10*3/uL 0-0.2 [facility] Nucleated erythrocytes/100 leukocytes [Ratio] in Blood by Automated count 0 /100{WBCs} 0-0 [facility] ID Date Data Source [id number] 01/24/2020 06:14:04 AM [facility] Name Value Range Interpretation Code Description Data Savi rce(s) Supporting Document(s) Heparin unfractionated [Units/volume] in Platelet poor plasma by Chromogenic method [facility] ID Date Data Source [id number] 01/24/2020 06:23:04 AM [facility] Value Range Interpretation Code Description Data Savi rce(s) Supporting Document(s) Albumin [Mass/volume] in Serum or Plasma by Bromocresol green (BCG) dye binding method 3.4 g/dL 3.5-5.2 L [facility] Bilirubin.total [Mass/volume] in Serum or Plasma 0.9 mg/dL <1.2 [facility] Calcium [Mass/volume] in Serum or Plasma 8.6 mg/dL 8.6-10.0 [facility] Chloride [Moles/volume] in Serum or Plasma 102 mmol/L 98-107 [facility] Creatinine [Mass/volume] in Serum or Plasma 1.53 mg/dL 0.70-1.20 H [facility] Glucose [Mass/volume] in Serum or Plasma 116 mg/dL 70-140 [facility] Alkaline phosphatase [Enzymatic activity/volume] in Serum or Plasma 79 U/L 40-129 [facility] Potassium [Moles/volume] in Serum or Plasma 4.3 mmol/L 3.4-5.1 [facility] Protein [Mass/volume] in Serum or Plasma 7.2 g/dL 6.4-8.3 [facility] Sodium [Moles/volume] in Serum or Plasma 136 mmol/L 136-145 [facility] Aspartate aminotransferase [Enzymatic activity/volume] in Serum or Plasma 17 U/L <40 [facility] Urea nitrogen [Mass/volume] in Serum or Plasma 15 mg/dL 6-20 [facility] Osmolality of Serum or Plasma by calculation 284 mosm/kg 275-300 [facility] Creatinine/Urea nitrogen [Mass Ratio] in Serum or Plasma 10 [facility] Bicarbonate [Moles/volume] in Serum 22 mmol/L 22-29 [facility] Alanine aminotransferase [Enzymatic activity/volume] in Seru m or Plasma 16 U/L <41 [facility] Anion gap 3 in Serum or Plasma 12 mmol/L 8-15 [facility] Albumin/Globulin [Mass Ratio] in Serum or Plasma 0.9 [facility] Glomerular filtration rate/1.73 sq M pre dicted among non-blacks [Volume Rate/Area] in Serum or Plasma by Creatinine-based formula (MDRD) 53 mL/min/1.73m2 >60 L [facility] Glomerular filtration rate/1.73 sq M pre dicted among blacks [Volume Rate/Area] in Serum or Plasma by Creatinine-based formula (MDRD) 61 mL/min/1.73m2 >60 [facility] ID Date Data Source [id number] 01/24/2020 06:23:04 AM [facility] Name Value Range Interpretation Code Description Data Savi rce(s) Supporting Document(s) Magnesium [Mass/volume] in Serum or Plasma 2.0 mg/dL 1.6-2.6 [facility] ID Date Data Source [id number] 01/24/2020 06:23:04 AM [facility] Name Value Range Interpretation Code Description Data Savi rce(s) Supporting Document(s) Phosphate [Mass/volume] in Serum or Plasma 3.7 mg/dL 2.5-4.5 [facility] ID Date Data Source [id number] 01/24/2020 06:23:04 AM [facility] Name Value Range Interpretation Code Description Data Savi rce(s) Supporting Document(s) Troponin T.cardiac [Mass/volume] in Serum or Plasma 0.03 ng/mL <0.01 H [facility] ID Date Data Source [id number] 01/24/2020 12:02:46 AM [facility] Service Cmnt XXX-Imp : NoneMicroorganism XXX Cult : 2019 nCoV Real-Time RT-PCR: NOT DETECTEDTest performed using the [employer] Xpert Xpress SARS-CoV-2 assay. This test is only for use under the Food and Drug Administration's Emergency Use Authorization. Additional information is available on the following FDA websites for health care providers and patients. https://www.fda.gov/media/125729/download , https://www.fda.gov/media/515472/download Name Value Range Interpretation Code Description Data Savi rce(s) Supporting Document(s) ID Date Data Source [id number] 01/23/2020 10:41:00 PM [facility] Cmnt XXX-Imp : NoneMicroorganism XXX Cult : 2019 nCoV Real-Time RT-PCR: NOT DETECTEDTest performed using the [employer] Xpert Xpress SARS-CoV-2 assay. This test is only for use under the Food and Drug Administration's Emergency Use Authorization. Additional information is available on the following FDA websites for health care providers and patients. https://www.fda.gov/media/349330/download , https://www.fda.gov/media/001297/download Name Value Range Interpretation Code Description Data Savi rce(s) Supporting Document(s) Microorganism identified in Unspecified specimen by [facility] This lab was ordered by Health system and reported by [facility]. ID Date Data Source [id number] 01/24/2020 12:00:03 AM [facility] Name Value Range Interpretation Code Description Data Savi rce(s) Supporting Document(s) Leukocytes [#/volume] in Blood by Automated count 15.1 10*3/uL 4-10 H [facility] Erythrocytes [#/volume] in Blood by Automated count 4.98 10*6/uL 4.6- 6.1 [facility] Hemoglobin [Mass/volume] in Blood 14.3 g/dL 13.5-18 [facility] Hematocrit [Volume Fraction] of Blood by Automated count 42.3 % 4 1-53 [facility] Erythrocyte mean corpuscular volume [Entitic volume] by Auto mated count 84.9 fL 80-96 [facility] Erythrocyte mean corpuscular hemoglobin [Entitic mass] by Automated count 28.7 pg 27-33 [facility] Erythrocyte mean corpuscular hemoglobin concentration [Mass/volume] by Automated count 33.8 g/dL 32.0-36.0 [facility] E[facility]th[facility] distribution width [Ratio] by Automated count 15.4 % 11.5-14.5 H [facility] Platelets [#/volume] in Blood by Automated count 124 10*3/uL 150-400 L [facility] Differential cell count method - Blood [facility] Neutrophils/100 leukocytes in Blood by Automated count 66 % [facility] Lymphocytes/100 leukocytes in Blood by Automated count 25 % [facility] Monocytes/100 leukocytes in Blood by Automated count 5 % [facility] Eosinophils/100 leukocytes in Blood by Automated count 3 % [facility] Basophils/100 leukocytes in Blood by Automated count 1 % [facility] Neutrophils [#/volume] in Blood by Automated count 9.96 10*3/uL 1.8-7 .0 H [facility] Lymphocytes [#/volume] in Blood by Automated count 3.85 10*3/uL 1.2-4 .0 [facility] Monocytes [#/volume] in Blood by Automated count 0.80 10*3/uL 0-0.8 [facility] Eosinophils [#/volume] in Blood by Automated count 0.43 10*3/uL 0-0.5 [facility] Basophils [#/volume] in Blood by Automated count 0.09 10*3/uL 0-0.2 [facility] Nucleated erythrocytes/100 leukocytes [Ratio] in Blood by Automated count 0 /100{WBCs} 0-0 [facility] ID Date Data Source [id number] 01/23/2020 10:27:27 PM EDT [facility] Name Value Range Interpretation Code Description Data Savi rce(s) Supporting Document(s) Troponin I.cardiac [Mass/volume] in Blood 0.08 ng/mL 0.00-0.08 [facility] ID Date Data Source [id number] 01/23/2020 10:32:07 PM [facility] Name Value Range Interpretation Code Description Data Savi rce(s) Supporting Document(s) Leukocytes [#/volume] in Blood by Automated count 4-10 [facility] CALLED TO YOGESH PRADHAN RN EER 2227 BY 3650 Erythrocytes [#/volume] in Blood by Automated count 4.6-6. 1 [facility] Hemoglobin [Mass/volume] in Blood 13.5-18 [facility] Hematocrit [Volume Fraction] of Blood by Automated count 4 1-53 [facility] Erythrocyte mean corpuscular volume [Entitic volume] by Automate d count 80-96 [facility] Erythrocyte mean corpuscular hemoglobin [Entitic mass] by Au tomated count 27-33 [facility] Erythrocyte mean corpuscular hemoglobin concentration [Mass/volume] by Automated count 32.0-36.0 [facility] Erythrocyte distribution width [Ratio] by Automated count 11.5-14.5 [facility] Platelets [#/volume] in Blood by Automated count 150-400 [facility] Sample quality of Dried blood spot [facility] Differential cell count method - Blood [facility] ID Date Data Source [id number] 01/23/2020 10:44:22 PM [facility] Value Range Interpretation Code Description Data Savi rce(s) Supporting Document(s) Heparin unfractionated [Units/volume] in Platelet poor plasma by Chromogenic method 0.80 U/ml [facility] ID Date Data Source 01/23/2020 10:55:12 PM [facility] Name Value Range Interpretation Code Description Data Savi rce(s) Supporting Document(s) Bicarbonate [Moles/volume] in Serum 25 mmol/L 22-29 [facility] Chloride [Moles/volume] in Serum or Plasma 102 mmol/L 98-107 [facility] Creatinine [Mass/volume] in Serum or Plasma 1.50 mg/dL 0.70-1.20 H [facility] Glucose [Mass/volume] in Serum or Plasma 110 mg/dL 70-140 [facility] Potassium [Moles/volume] in Serum or Plasma 4.3 mmol/L 3.4-5.1 [facility] Sodium [Moles/volume] in Serum or Plasma 139 mmol/L 136-145 [facility] Urea nitrogen [Mass/volume] in Serum or Plasma 15 mg/dL 6-20 [facility] Anion gap 3 in Serum or Plasma 12 mmol/L 8-15 [facility] Osmolality of Serum or Plasma by calculation 289 mosm/kg 275-300 [facility] Creatinine/Urea nitrogen [Mass Ratio] in Serum or Plasma 10 [facility] Calcium [Mass/volume] in Serum or Plasma 8.4 mg/dL 8.6-10.0 L [facility] Glomerular filtration rate/1.73 sq M pre dicted among non-blacks [Volume Rate/Area] in Serum or Plasma by Creatinine-based formula (MDRD) 54 mL/min/1.73m2 >60 L [facility] Glomerular filtration rate/1.73 sq M pre dicted among blacks [Volume Rate/Area] in Serum or Plasma by Creatinine-based formula (MDRD) 62 mL/min/1.73m2 >60 [facility] ID Date Data Source [id number] 01/15/2020 02:06:57 PM EDT [facility] Measurements & CalculationsHeight: 74 inches [...] Race: White Ethnicity: Not or Preferred Language: EnglishMonLoomio and Vantageous In the past year, have you or [...] medications as well.Was getting some relief from [place] 5 mg but this is less effective than it used to be.No adverse effects from [place].HPI performed by: John Martinez MD, January 15, 2020 2:57 PMTransitions of Care InboundProblem ReviewProblem List was reviewed and/or updated during this visit.Medication Reconciliation & ReviewMedication List was reviewed and/or updated during this visit, including review of any wfhz-qsz-pteumbo medications, herbal therapies, and/or supplements.Allergy ReviewAllergy List [...] & Plan Problems:Assessed:Pain in right hip (ICD-719.45) (YST27-X51.551) Assessment: Instructions: Fair but lessening control.Temporarly increase the [place] from 5 mg to 7.5 mg.The ultimate answer is weight loss (through bariatric surgery) and Ortho surgery although this is delayed by the pandemic.Recheck one month, sooner as needed.Patient Instructions/Care Plan: Pain in right hip: Fair but lessening control.Temporarly increase the [place] from 5 mg to 7.5 mg.The ultimate [...] John Martinez MD Method used: Electronically to [facility] (retail) [address] [place] [address] Note to Pharmacy: Route: ORAL; RxID: [id number] signed by John Martinez MD on 01/15/2020 at 3:18 PM Name Value Range Interpretation Code Description Data Savi rce(s) Supporting Document(s) ID Date Data Source [id number] 11/20/2019 01:34:12 PM EDT [facility] Measurements & CalculationsWeight: 470 pounds 213.64 kg Vital Signs performed by: Miguel Tafoya MA, November 20, 2019 1:35 PMAssessment & Plan Orders:[id number] Vst-Est Level I [CPT-49539] Labs In-House Name Value Range Interpretation Code Description Data Savi rce(s) Supporting Document(s) ID Date Data Source [id number] 11/10/2019 08:47:59 AM EDT [facility] Measurements & CalculationsHeight: 74 inches [...] Problems:Added: Ex-smoker (ICD-V15.82) (ICD10- Z87.891)Ankle edema (ICD-719.07) (IUQ75-K99.0)Assessed:Obesity, unspecified (FMT26-U55.9) Assessment: for by pass surgeryAssessment not SavedEx-smoker (XYQ11-G64.891): Medication Changes:New Prescription:EQL NICOTINE POLACRILEX 2 MG MOUTH/THROAT LOZENGE-one lozenge slowly dissolved in mouth q2h prn Qty: 150[Lozenge] Refills: 1 Method: ElectronicOrders:Adult - Ofc Vst, EST, Level III [CPT-35021] COMP METABOLIC PANEL [CPT-78642] CBC W/DIFF [CPT-81727] HgBA1c [CPT-36767] LIPID PANEL [CPT-35067] TSH [CPT-81733] Vitamin D 250H Unspecified [CPT-30318] Medications:EQL NICOTINE POLACRILEX 2 MG MOUTH/THROAT LOZENGE (NI COTINE POLACRILEX) one lozenge slowly dissolved in mouth q2h prn #150[Lozenge] x 1 Route:MOUTH/THROAT Entered and Authorized by: Candelario Casillas DO Method used: Electronically to [facility] (retail) [address] [place] [address] Note to Pharmacy: Route: MOUTH/THROAT; RxID: [id number]] Name Value Range Interpretation Code Description Data Savi rce(s) Supporting Document(s) ID Date Data Source [id number] 11/08/2019 09:58:45 AM EDT [facility] [place] [facility] [place], [place] [address]Evk# Surgical Pathology ReportAccession #:[id number](s) ReceivedA: Antrum bxs, r/o H. pyloriClinical Diagnosis and HistoryEsophageal reflux DIAGNOSISSTOMACH, ANTRUM, BIOPSY: MILD CHRONIC GASTRITIS. NEGATIVE FOR HELICOBACTER PYLORI BY IMMUNOSTAIN. Gross DescriptionReceived in formalin labeled "antrum biopsies rule out H. pylori" are twotan-pink irregular fragments of tissue measuring 0.3 and 0.7 cm. Entirelysubmitted as A1. 1 + 1. Processed at [facility], Histopathology, [address], [place], [address].jgllmr/jjf Reported: 11/08/2019Electronically Signed Out By Aston Rojas MD [facility] This report may include immunohistochemical or in-situ hybridizationresults. Testing was developed and the performance characteristicsdetermined by Count includes the [facility] as required by CLIA '88. The FDAhas determined that approval for specific use is not necessary forclinical use. The quality of Hematoxylin and Eosin stains and asapplicable, for all immunohistochemical and/or special stains, in cludingpositive and negative controls, were reviewed and considered appropriate.ICD codes K21.9 K29.30CPT codesA: 42573E, 88581e Name Value Range Interpretation Code Description Data Savi rce(s) Supporting Document(s) ID Date Data Source [id number] 11/06/2019 09:31:43 AM EDT [facility] NT INFORMATIONPatient MRN Name Date of Age Gend*PT [id number] Wei Rothman 1970 49 years M OPPT Location Admission Date/Time [facility] 07[facility] --- Himanshu Guerrier MD([id number]) EPI ID CSN Admitting Provider [id number] Himanshu Guerrier MD([id number])Endoscopic Gastroduodenoscopy Procedure NotePatient: Wei BryansukhjinderSurgery Date: November [...] Value Range Interpretation Code Description Data [facility](s) Supporting Document(s) ID Date Data Source [id number] 11/06/2019 08:47:46 AM EDT [facility] NT INFORMATIONPatient MRN Name Date of Age Gend*PT [id number] Wei Rothman 1970 49 years M OPPT Location Admission Date/Time Visit ID [facility] 0725 --- Himanshu Guerrier MD([id number]) EPI ID CSN Admitting Provider [id number] Himanshu Guerrier MD([id number])H&P reviewed. The patient was examined and there are no changes to the H&P.Himanshu Guerrier MD8:47 AM Name Value Range Interpretation Code Description Data Savi dina(s) Supporting Document(s) ID Date Data Source [id number] 11/06/2019 08:47:41 AM EDT [facility] NT INFORMATIONPatient MRN Name Date of Age Gend*PT [id number] Wei Rothman 1970 49 years M OPPT Location Admission Date/Time Visit [facility] 0725 --- Himanshu Guerrier MD([id number]) EPI ID CSN Admitting Provider [id number] Himanshu Guerrier MD([id number])Pre-Procedure History and Physical:Past Medical History:Diagnosis Date Arthritis [...] rce(s) Supporting Document(s) ID Date Data Source [id number] 10/31/2019 10:21:01 AM EST [facility] Labs In-House Blood TestsDate/Time Colle cted: October 31, 2019 8:20 AMTest Result Reference Range Normal ValueComments: blood draw done in office, taken from left hand, tolerated well.Emely Schimtt, October 31, 2019 10:21 AMAssessment & Plan Orders:[id number] Vst-Est Level I [CPT-35454] 76434 - Venipuncture [CPT-10476] Name Value Range Interpretation Code Description Data Savi rce(s) Supporting Document(s) ID Date Data Source [id number] 10/31/2019 08:20:00 AM EST [facility] Name Value Range Interpretation Code Description Data Savi rce(s) Supporting Document(s) BG FASTING 206 mg/dL 70-100 H [facility] Health ID Date Data Source [id number] 10/31/2019 08:20:00 AM EST [facility] Name Value Range Interpretation Code Description Data Savi rce(s) Supporting Document(s) HGBA1C 6.1 % N [facility] ID Date Data Source [id number] 10/20/2019 01:09:31 PM EST [facility] Measurements & CalculationsWeight: 454 pounds 7 oz. 206.56 kg Vital Signs performed by: Miguel Tafoya MA, October 20, 2019 1:21 PMAssessment & Plan Orders:[id number] Vst-Est Level I [CPT-15107] Name Value Range Interpretation Code Description Data Savi rce(s) Supporting Document(s) ID Date Data Source [id number] 09/20/2019 08:33:41 PM EST [facility] [place] [facility] [employer] [facility] Name Value Range Interpretation Code Description Data Savi rce(s) Supporting Document(s) HEMOGLOBIN A1C @ 5.6 % (4.0-6.0) [facility] [facility] Performed using Siemens Limon immunoassa y.Care must be taken when interpreting [id number] in patients with a hemoglobin variantor decreased erythrocyte lifespan. Values 5.7 - 6.4% suggest prediabetes.Values >=6.5% are diagnostic for diabetes.REFERENCE: DIABETES CARE 2018: 41(S13-S27). EST AVERAGE GLUCOSE 114 mg/dL [facility] [place] [facility] [employer] [facility] [place] Date Data Source [id number] 09/20/2019 08:01:07 PM EST [facility] Name Value Range Interpretation Code Description Data Savi rce(s) Supporting Document(s) TSH,ULTRASENSITIVE @ 4.670 mIU/L (0.360-4.170) H Laboratory [facility] Procedure Social History Code Duration Value Status Description Data Source(s ) 05/14/2020 12:00:00 AM EDT Patient is a current smoker, smokes every day completed Patient is a current smoker, smokes every day [facility] ( [facility]) Alcohol intake 01/24/2020 12:00:00 AM EDT Ex-drinker (finding) comp leted Ex- drinker (finding) [facility] Smoking 01/24/2020 12:00:00 AM EDT Current some day smoker com pleted Current some day smoker [facility] Alcohol intake 11/06/2019 12:00:00 AM EDT Never completed [facility] Smoking 11/06/2019 12:00:00 AM EDT Current some day smoker com pleted Current some day smoker [facility] Vital Signs ID Date Data Source UNK Name Value Range Interpretation Code Description Data Source(s) Body weight 8018 [oz_av] 8018 [oz_av] [facility] ([facility]) Systolic blood pressure 119 mm[Hg] 119 mm[Hg] [facility] Body mass index (BMI) [Ratio] 64.3 kg/m2 64.3 k g/m2 [facility] ([facility]) Body height 74 [in_i] 74 [in_i] [facility] ([facility]) Diastolic blood pressure 76 mm[Hg] 76 mm[Hg] [facility] ([facility]) Body surface area Derived from formula 3.14 m2 3.14 m2 [facility] Body weight 220.903 kg 220.903 kg [facility] ([facility]) Alpine body weight 184 [lb_av] 184 [lb_av] MEDEN T ([facility]) Body mass index (BMI) [Ratio] 64.2 kg/m2 64.2 k g/m2 [facility] ([facility]) Body weight 487.00 [lb_av] 487.00 [lb_av] [facility] T ([facility]) PT States Body height 73 [in_i] 73 [in_i] [facility] 6'1" Body temperature 96.8 [degF] 96.8 [degF] [facility] ([facility]) Oxygen saturation in Arterial blood by Pulse oximetry 97 % 97 % [facility] ([facility]) Heart rate 122 /min 122 /min [facility] ([facility]) Diastolic blood pressure 80 mm[Hg] 80 mm[Hg] [facility] Systolic blood pressure 130 mm[Hg] 130 mm[Hg] [facility] Body weight 7472 [oz_av] 7472 [oz_av] [facility] ([facility]) Systolic blood pressure 111 mm[Hg] 111 mm[Hg] A THENA ([facility]) Body mass index (BMI) [Ratio] 60 kg/m2 60 kg/ m2 [facility] ([facility]) Body height 74 [in_i] 74 [in_i] [facility] ([facility]) Diastolic blood pressure 61 mm[Hg] 61 mm[Hg] [facility] ([facility]) Body weight 7472 [oz_av] 7472 [oz_av] [facility] ([facility]) Systolic blood pressure 111 mm[Hg] 111 mm[Hg] A [facility] ([facility]) Body mass index (BMI) [Ratio] 60 kg/m2 60 kg/ m2 [facility] ([facility]) Body height 74 [in_i] 74 [in_i] [facility] ([facility]) Diastolic blood pressure 61 mm[Hg] 61 mm[Hg] [facility] ([facility]) Body weight 7472 [oz_av] 7472 [oz_av] ACSSIE ([facility]) Systolic blood pressure 130 mm[Hg] 130 mm[Hg] A [facility] ([facility]) Body mass index (BMI) [Ratio] 60 kg/m2 60 kg/ m2 [facility] ([facility]) Body height 74 [in_i] 74 [in_i] [facility] ([facility]) Diastolic blood pressure 84 mm[Hg] 84 mm[Hg] [facility] ([facility]) Body weight 7472 [oz_av] 7472 [oz_av] [facility] ([facility]) Systolic blood pressure 130 mm[Hg] 130 mm[Hg] A [facility] ([facility]) Body mass index (BMI) [Ratio] 60 kg/m2 60 kg/ m2 [facility] ([facility]) Body height 74 [in_i] 74 [in_i] [facility] ([facility]) Diastolic blood pressure 84 mm[Hg] 84 mm[Hg] [facility] ([facility]) Body weight 7472 [oz_av] 7472 [oz_av] [facility] ([facility]) Systolic blood pressure 130 mm[Hg] 130 mm[Hg] A [facility] ([facility]) Body mass index (BMI) [Ratio] 60 kg/m2 60 kg/ m2 [facility] ([facility]) Body height 74 [in_i] 74 [in_i] [facility] ([facility]) Diastolic blood pressure 84 mm[Hg] 84 mm[Hg] [facility] ([facility]) Body surface area Derived from formula 3.14 m2 3.14 m2 [facility] ([facility]) Body weight 221.073 kg 221.073 kg [facility] ([facility]) Alpine body weight 184 [lb_av] 184 [lb_av] [facility] ([facility]) Body mass index (BMI) [Ratio] 64.3 kg/m2 64.3 k g/m2 [facility] ([facility]) Body weight 487.38 [lb_av] 487.38 [lb_av] [facility] Body height 73 [in_i] 73 [in_i] [facility] ([facility]) 6'1" Body temperature 96.8 [degF] 96.8 [degF] [facility] ([facility]) Oxygen saturation in Arterial blood by Pulse oximetry 97 % 97 % [facility] ([facility]) Heart rate 102 /min 102 /min [facility] ([facility]) Diastolic blood pressure 88 mm[Hg] 88 mm[Hg] [facility] ([facility]) Systolic blood pressure 142 mm[Hg] 142 mm[Hg] [facility] Body weight 7394.08 [oz_av] 7394.08 [oz_av] ATH [facility] ([facility]) Systolic blood pressure 103 mm[Hg] 103 mm[Hg] A [facility] ([facility]) Body height 74 [in_i] 74 [in_i] [facility] ([facility]) Diastolic blood pressure 71 mm[Hg] 71 mm[Hg] [facility] ([facility]) Body weight 7394.08 [oz_av] 7394.08 [oz_av] [facility] ([facility]) Systolic blood pressure 103 mm[Hg] 103 mm[Hg] [facility] Body height 74 [in_i] 74 [in_i] [facility] ([facility]) Diastolic blood pressure 71 mm[Hg] 71 mm[Hg] [facility] ([facility]) Body weight 7394.08 [oz_av] 7394.08 [oz_av] [facility] ([facility]) Systolic blood pressure 103 mm[Hg] 103 mm[Hg] [facility] Body height 74 [in_i] 74 [in_i] [facility] ([facility]) Diastolic blood pressure 71 mm[Hg] 71 mm[Hg] [facility] ([facility]) Body weight 7478.4 [oz_av] 7478.4 [oz_av] ATHEN A ([facility]) Systolic blood pressure 121 mm[Hg] 121 mm[Hg] [facility] Body height 74 [in_i] 74 [in_i] [facility] ([facility]) Diastolic blood pressure 77 mm[Hg] 77 mm[Hg] [facility] ([facility]) Body weight 7478.4 [oz_av] 7478.4 [oz_av] ATHEN A ([facility]) Systolic blood pressure 121 mm[Hg] 121 mm[Hg] [facility] Body height 74 [in_i] 74 [in_i] [facility] ([facility]) Diastolic blood pressure 77 mm[Hg] 77 mm[Hg] [facility] ([facility]) Body weight 7478.4 [oz_av] 7478.4 [oz_av] ATHEN A ([facility]) Systolic blood pressure 121 mm[Hg] 121 mm[Hg] [facility] Body height 74 [in_i] 74 [in_i] [facility] ([facility]) Diastolic blood pressure 77 mm[Hg] 77 mm[Hg] [facility] ([facility]) Body weight 7465.6 [oz_av] 7465.6 [oz_av] ATHEN A ([facility]) Systolic blood pressure 120 mm[Hg] 120 mm[Hg] [facility] Body height 74 [in_i] 74 [in_i] [facility] ([facility]) Diastolic blood pressure 84 mm[Hg] 84 mm[Hg] [facility] ([facility]) Body weight 7465.6 [oz_av] 7465.6 [oz_av] ATHEN A ([facility]) Systolic blood pressure 120 mm[Hg] 120 mm[Hg] A [facility] ([facility]) Body height 74 [in_i] 74 [in_i] [facility] ([facility]) Diastolic blood pressure 84 mm[Hg] 84 mm[Hg] [facility] ([facility]) Body weight 7465.6 [oz_av] 7465.6 [oz_av] ATHEN A ([facility]) Systolic blood pressure 120 mm[Hg] 120 mm[Hg] A [facility] ([facility]) Body height 74 [in_i] 74 [in_i] [facility] ([facility]) Diastolic blood pressure 84 mm[Hg] 84 mm[Hg] [facility] ([facility]) Body weight 7520 [oz_av] 7520 [oz_av] [facility] ([facility]) Body weight 7520 [oz_av] 7520 [oz_av] [facility] ([facility]) Body weight 7520 [oz_av] 7520 [oz_av] [facility] ([facility]) Body weight 7508 [oz_av] 7508 [oz_av] [facility] ([facility]) Systolic blood pressure 144 mm[Hg] 144 mm[Hg] A [facility] ([facility]) Body height 74 [in_i] 74 [in_i] [facility] ([facility]) Diastolic blood pressure 78 mm[Hg] 78 mm[Hg] [facility] ([facility]) Body weight 7508 [oz_av] 7508 [oz_av] [facility] ([facility]) Systolic blood pressure 144 mm[Hg] 144 mm[Hg] A [facility] ([facility]) Body height 74 [in_i] 74 [in_i] [facility] ([facility]) Diastolic blood pressure 78 mm[Hg] 78 mm[Hg] [facility] ([facility]) Body weight 7508 [oz_av] 7508 [oz_av] [facility] ([facility]) Systolic blood pressure 144 mm[Hg] 144 mm[Hg] A THENA ([facility]) Body height 74 [in_i] 74 [in_i] [facility] ([facility]) Diastolic blood pressure 78 mm[Hg] 78 mm[Hg] [facility] ([facility]) Oxygen saturation in Arterial blood by Pulse oximetry 95 % 95 % [facility] Body temperature 36.44 Sonal 36.44 Sonal [facility] Heart rate 73 /min 73 /min [facility] Diastolic blood pressure 71 mm[Hg] 71 mm[Hg] [facility] Systolic blood pressure 102 mm[Hg] 102 mm[Hg] [facility] Respiratory rate 16 /min 16 /min [facility] Body mass index (BMI) [Ratio] 52.77 kg/m2 52.77 kg/m2 [facility] Body weight 181.[address] [facility] Body height 185.[address] [facility] Body weight 7271.04 [oz_av] 7271.04 [oz_av] [facility] ([facility]) Body weight 7271.04 [oz_av] 7271.04 [oz_av] [facility] ([facility]) Body weight 7271.04 [oz_av] 7271.04 [oz_av] ATH [facility] ([facility]) ID Date Data Source [id number] 01/31/2020 11:10:09 AM EDT [facility] Name Value Range Interpretation Code Description Data Source(s) WEIGHT RECORDED 460.2 lb 460.2 lb [facility] Body height Measured 73 in 73 in [facility] Patient Treatment Plan of Care Planned Activity Planned Date Details Description Data Source (s) Levothyroxine 02/20/2020 01:00:00 AM EDT [facility] ([facility]) Tylenol 02/20/2020 01:00:00 AM EDT N [facility] ([facility]) Nicotine Mini 2 MG 02/20/2020 01:00[facility] Eliquis 5 MG 02/20/2020 01:00:00 AM EDT N [facility] ([facility]) apixaban 5 MG Oral Tablet 02/07/2020 12:00:00 AM [facility] apixaban 5 MG Oral Tablet 02/03/2020 12:00:00 AM [facility] Eliquis 5 MG 01/30/2020 01:00:00 AM EDT N [facility] ([facility]) Lortab 5-325 MG 01/30/2020 01:00:00 AM EDT [facility] ([facility]) Omeprazole 40 MG 01/30/2020 01:00:00 AM EDT [facility]) Colace 01/30/2020 01:00:00 AM EDT [facility] ([facility]) apixaban 5 MG Oral Tablet 01/27/2020 09:00:00 PM [facility] Acetaminophen 325 MG / Hydrocodone Bitartrate 5 MG Ora l Tablet 01/27/2020 01:06:12 PM [facility] ospital apixaban 5 MG Oral Tablet 01/27/2020 12:00:00 AM [facility] apixaban 5 MG Oral Tablet 01/27/2020 12:00:00 AM [facility] Acetaminophen 325 MG / Hydrocodone Bitartrate 5 MG Ora l Tablet 01/27/2020 12:00:00 AM [facility]spital apixaban 5 MG Oral Tablet 01/27/2020 12:00:00 AM [facility] apixaban 5 MG Oral Tablet 01/27/2020 12:00:00 AM [facility] Acetaminophen 325 MG / Hydrocodone Bitartrate 5 MG Ora l Tablet 01/27/2020 12:00:00 AM [facility]ital apixaban 5 MG Oral Tablet 01/27/2020 12:00:00 AM [facility] apixaban 5 MG Oral Tablet 01/27/2020 12:00:00 AM [facility] apixaban 5 MG Oral Tablet 01/27/2020 12:00:00 AM [facility] Omeprazole 40 MG Delayed Release Oral Capsule 12/22/2019 12:00:00 A M EDT [facility] Acetaminophen 325 MG / Hydrocodone Bitartrate 5 MG Ora l Tablet 12/21/2019 12:00:00 AM [facility]ital Furosemide 40 MG Oral Tablet [facility] ([facility]) Doxycycline Monohydrate 100 MG Oral Capsule [facility] ([facility])
[2020-10-23] MEDS ORDERED: MAALOX 30 ML SUSP *UDC PO PRN (03:45)
[2020-10-23] MEDS ORDERED: MOM 30ML SUSPENSION UDC PO PRN (03:45)
[2020-10-23] MEDS ORDERED: SODIUM CHLORIDE 0.9% 1000ML IV SCH (03:45)
[2020-10-23] MEDS ORDERED: LR 1,000 ML IV SCH (03:45)
[2020-10-23] MEDS ORDERED: OMEP-221 PO (03:48)
[2020-10-23] MEDS ORDERED: PROAAER10 INH (03:48)
[2020-10-23] MEDS ORDERED: HYDR-3716 PO (03:48)
[2020-10-23] MEDS ORDERED: LASI20TA3 PO (03:48)
[2020-10-23] MEDS ORDERED: ELIQ5TAB PO (03:48)
--- OUTSIDE RECORDS SUMMARY | 2020-10-23 03:59 | CCD ---
Author Author [facility] Organization [facility] Address Unknown Phone Unavailable Care Team Providers Care Corrosion Control Technician Name Role Phone Taye AMEZCUA Unavailable Unavailable [...] Unavailable Unavailable Anika Martinez MD Unavailable Unavailable Aniak Martinez MD Unavailable Unavailable Anika Martinez MD [...] Unavailable STEPHENS, Sam TURPIN MD Unavailable Unavailable STEPHESN, Sam TURPIN MD Unavailable Unavailable STEPHENS, Sam TURPIN MD Unavailable Unavailable STEPHENS, Sam TURPIN MD Unavailable Unavailable STEPHENS, Sam UTRPIN MD Unavailable Unavailable STEPHENS, Sam TURPIN MD [...] TURPIN MD Unavailable Unavailable ROSE, JAVIER ANNA PLATE FURNACE OPERATOR-C Unavailable Unavailable ROSE, JAVIER ANNA PLATE FURNACE OPERATOR-C Unavailable Unavailable ROSE, JAVIER ANNA PLATE FURNACE OPERATOR-C Unavailable Unavailable ROSE, JAVIER ANNA PLATE FURNACE OPERATOR-C Unavailable Unavailable ROSE, JAVIER ANNA PLATE FURNACE OPERATOR-C Unavailable Unavailable ROSE, JAVIER ANNA PLATE FURNACE OPERATOR-C Unavailable Unavailable ROSE, JAVIER ANNA PLATE FURNACE OPERATOR-C Unavailable Unavailable ROSE, JAVIER ANNA PLATE FURNACE OPERATOR-C Unavailable Unavailable ROSE, JAVIER ANNA PLATE FURNACE OPERATOR-C Unavailable Unavailable ROSE, JAVIER ANNA PLATE FURNACE OPERATOR-C Unavailable Unavailable ROSE, JAVIER ANNA PLATE FURNACE OPERATOR-C Unavailable Unavailable RSOE, JAVIER ANNA PLATE FURNACE OPERATOR-C Unavailable Unavailable ROSE, JAVIER ANNA PLATE FURNACE OPERATOR-C Unavailable Unavailable ROSE, JAVIER ANNA PLATE FURNACE OPERATOR-C Unavailable Unavailable ROSE, JAVIER ANNA PLATE FURNACE OPERATOR-C Unavailable Unavailable ROSE, JAVIER ANNA PLATE FURNACE OPERATOR-C Unavailable Unavailable Jose Guerrier MD Unavailable [...] Unavailable Unavailable Sam BROOKS MD Unavailable Unavailable Sma BROOKS MD Unavailable Unavailable Sam BROOKS MD [...] Unavailable Obradovic, Vladan Unavailable Unavailable Mikey, Lucy PLATE FURNACE OPERATOR PLATE FURNACE OPERATOR Unavailable Unavailable Mikey, A Lucy PLATE FURNACE OPERATOR Unavailable Unavailable Mikey, A Lucy PLATE FURNACE OPERATOR Unavailable Unavailable Mikey, A Lucy PLATE FURNACE OPERATOR Unavailable Unavailable Mikey, A Lucy PLATE FURNACE OPERATOR Unavailable Unavailable Mikey, A Lucy PLATE FURNACE OPERATOR Unavailable Unavailable Mikey, A Lucy PLATE FURNACE OPERATOR Unavailable Unavailable Mikey, A Lucy PLATE FURNACE OPERATOR Unavailable Unavailable Mikey, A Lucy PLATE FURNACE OPERATOR Unavailable Unavailable Mikey, A Lucy PLATE FURNACE OPERATOR Unavailable Unavailable Mikey, A Lucy PLATE FURNACE OPERATOR Unavailable Unavailable Mikey, A Lucy PLATE FURNACE OPERATOR Unavailable Unavailable Mikey, A Lucy PLATE FURNACE OPERATOR Unavailable Unavailable Mikey, A Lucy PLATE FURNACE OPERATOR Unavailable Unavailable Mikey, A Lucy PLATE FURNACE OPERATOR Unavailable Unavailable Mikey, A Lucy PLATE FURNACE OPERATOR Unavailable Unavailable Mikey, A Lucy PLATE FURNACE OPERATOR Unavailable Unavailable Mikey, A Lucy PLATE FURNACE OPERATOR Unavailable Unavailable Mikey, A Lucy PLATE FURNACE OPERATOR Unavailable Unavailable Mikey, A Lucy PLATE FURNACE OPERATOR Unavailable Unavailable Mikey, A Lucy PLATE FURNACE OPERATOR Unavailable Unavailable Mikey, A Lucy PLATE FURNACE OPERATOR Unavailable Unavailable Mikey, A Lucy PLATE FURNACE OPERATOR Unavailable Unavailable Mikey, A Lucy PLATE FURNACE OPERATOR Unavailable Unavailable Mikey, A Lucy PLATE FURNACE OPERATOR Unavailable Unavailable Mikey, A Lucy PLATE FURNACE OPERATOR Unavailable Unavailable Mikey, A Lucy PLATE FURNACE OPERATOR Unavailable Unavailable Mikey, A Lucy PLATE FURNACE OPERATOR Unavailable Unavailable Mikey, A Lucy PLATE FURNACE OPERATOR Unavailable Unavailable Re-disclosure Warning The records [...] is protected by Article 27-F of the [facility] Public Health law. If you continue you may have access to information: Regarding HIV / AIDS; Provided by facilities licensed or operated by the [facility] Office of Mental Health; or Provided by the [facility] Office for People With Developmental Disabilities. If such information is present, then the following [facility] mandated warning applies: This information has been [...] law may result in a fine or prison sentence or both. A general authorization for the release of medical or other information is NOT sufficient authorization for further disc losure. Allergies and Adverse Reactions Type Description Substance Reaction Status Data Source(s ) Soma Soma Soma active NETSMART ([facility]) Drug Class NO KNOWN ALLERGIES NO KNOWN ALLERGIES [facility] DRUG INGREDI CARISOPRODOL CARISOPRODOL [facility] Propensity to adverse reactions CARISOPRODOL Carisoprodol Hives High Facial Swelling High Active High High Encounters Encounter Providers Location Date Indications Data Source(s ) John Martinez MD: [address] [place] [phone], Ph. Attender: John Martinez MD [facility] Medical 08/06/2020 12:00:00 AM EST CAS[facility] ([facility]) John Martinez MD: [address] [place] [phone], Ph. Attender: John Martinez MD [facility] Medical 07/19/2020 12:00:00 AM EST [facility] ([facility]) John Martinez MD: [address] [place] [phone], Ph. Attender: John Martinez MD [facility] Medical 07/19/2020 12:00:00 AM EST [facility] ([facility]) Outpatient [address] [place] [address]-Mobile Integration Team 07/18/2020 12:00:00 AM EST MHARS ([facility]) Patient admitted. John Martinez MD: [address] [place] [phone], Ph. Attender: John Martinez MD [facility] Medical 06/20/2020 12:00:00 AM EDT [facility] ([facility]) John Martinez MD: [address] [place] [phone], Ph. Attender: John Martinez MD [facility] Medical 06/20/2020 12:00:00 AM EDT [facility] ([facility]) John Martinez MD: [address] [place] [phone], Ph. Attender: John Martinez MD [facility] Medical 06/20/2020 12:00:00 AM EDT [facility] ([facility]) Outpatient Attender: DAKOTAH SAMUELS 06/19/2020 03:20:00 P M EDT [facility] Outpatient Attender: DAKOTAH CLAIRE FP 05/21/2020 08:17:00 A M EDT [facility] Outpatient Attender: DAKOTAH CLAIRE FP 05/19/2020 04:18:01 P M EDT [facility] Outpatient Attender: Lucy CLAIRE FP 05/19/2020 04:1 8:01 PM EDT [facility] Outpatient Attender: ANNA ROSE Adair/Nuria/Jim/Taye miller 05/14/2020 01:15:00 PM EDT MED[facility] ([facility] Outpatient Attender: Lucy CLAIRE FP 05/13/2020 11:5 8:02 AM EDT [facility] Outpatient Attender: DAKOTAH CLAIRE FP 05/08/2020 12:28:01 P M EDT [facility] Outpatient Attender: DAKOTAH CLAIRE FP 03/14/2020 09:12:00 A M EDT [facility] Outpatient Attender: DAKOTAH MCCORMACKP FP 03/12/2020 02:37:00 P M EDT [facility] Outpatient Attender: DAKOTAH CLAIRE FP 03/08/2020 09:07:02 A M EDT [facility] Outpatient Attender: DAKOTAH CLAIRE FP 02/21/2020 03:28:08 P M EDT [facility] Outpatient Attender: DAKOTAH CLAIRE FP 02/16/2020 09:04:01 A M EDT [facility] Outpatient Attender: Lucy CLAIRE FP 02/15/2020 09:5 7:00 AM EDT [facility] Outpatient Attender: DAKOTAH MCCORMACKP FP 02/15/2020 08:36:01 A M EDT [facility] Outpatient Attender: DAKOTAH CLAIRE FP 02/15/2020 07:50:00 A M EDT [facility] Outpatient Attender: Lucy CLAIRE FP 02/08/2020 10:1 0:01 AM EDT [facility] Outpatient Attender: Lucy CLAIRE FP 02/08/2020 08:5 4:03 AM EDT [facility] Outpatient Attender: DAKOTAH CLAIRE FP 02/08/2020 08:54:02 A M EDT [facility] Outpatient Referrer: DYANA STEPHENS MD 02/08/2020 05:55:00 AM EDT [facility] Outpatient Attender: DAKOTAH CLAIRE FP 02/07/2020 08:20:01 A M EDT [facility] Outpatient Attender: DAKOTAH SAMUELS 02/06/2020 01:48:01 P M EDT [facility] Outpatient Attender: DAKOTAH SAMUELS 02/05/2020 02:36:00 P M EDT [facility] Outpatient Attender: Lucy SAMUELS 02/05/2020 02:3 5:01 PM EDT [facility] Outpatient Attender: DAKOTAH SAMUELS 02/02/2020 02:43:00 P M EDT [facility] Outpatient Attender: Lucy SAMUELS 01/31/2020 07:2 3:02 AM EDT [facility] 01/30/2020 01:00:00 AM EDT - 020 09:21:39 AM EDT [facility]) Outpatient Attender: Lucy SAMUELS 01/28/2020 10:1 0:01 PM EDT [facility] Outpatient Attender: Lucy SAMUELS 01/25/2020 11:4 1:03 AM EDT [facility] Inpatient Attender: HARLEY Bro er: WANDA FRY MDAttender: MAYCO AMEZCUAAdmitter: HARLEY TORRESReferrer: WANDA FRY MDConsultant: DYANA PEREZ MD [id number] 01/23/2020 12:00:00 AM EDT - 01/27/2020 04:57:00 PM EDT Other pulmonary embolism without acute cor pulmonale [facility] Other pulmonary embolism without acute c or pulmonale Patient discharged. Outpatient Attender: DAKOTAH SAMUELS 01/18/2020 11:38:00 A M EDT [facility] Outpatient Attender: Lucy SAMUELS 01/15/2020 03:1 9:01 PM EDT [facility] Outpatient Attender: DAKOTAH SAMUELS 01/15/2020 01:41:00 P M EDT [facility] Outpatient Attender: DAKOTAH SAMUELS 01/08/2020 02:48:01 P [facility] Outpatient Attender: ORTEGA BROOKS MD 01/08/2020 09:47:02 A [facility] Outpatient Attender: ORTEGA BROOKS MD 12/20/2019 01:05:00 P [facility] Outpatient Attender: ORTEGA BROOKS MD 11/27/2019 11:35:01 A [facility] Outpatient Attender: ORTEGA BROOKS MD 11/24/2019 09:49:00 A [facility] Outpatient Attender: ORTEGA BROOKS MD 11/22/2019 08:01:01 A [facility] Outpatient Attender: ORTEGA BROOKS MD 11/21/2019 10:27:01 A [facility] Outpatient Attender: ORTEGA BROOKS MD 11/20/2019 01:04:00 P [facility] Outpatient Attender: ORTEGA BROOKS MD 11/16/2019 01:46:00 P [facility] Outpatient Attender: ORTEGA BROOKS MD 11/10/2019 09:22:01 A [facility] Outpatient Attender: ORTEGA BROOKS MD 11/10/2019 09:18:03 A [facility] Outpatient Attender: ORTEGA BROOKS MD 11/10/2019 09:18:02 A [facility] Outpatient Attender: ORTEGA BROOKS MD 11/10/2019 09:18:02 A [facility] Outpatient Attender: ORTEGA BROOKS MD 11/10/2019 08:42:00 A [facility] Outpatient Attender: ORTEGA BROOKS MD 11/09/2019 11:20:58 A [facility] Outpatient Attender: ORTEGA BROOKS MD 10/31/2019 12:38:02 P [facility] Outpatient Attender: ORTEGA BROOKS MD 10/31/2019 09:48:01 A [facility] Inpatient Attender: Tracey TalaveraAdmitter: Tracey stack [email or web address] 10/31/2019 09:29:47 AM EST [facility] Outpatient Attender: ORTEGA BROOKS MD 10/31/2019 07:39:01 A [facility] Outpatient Attender: ORTEGA BROOKS MD 10/31/2019 07:38:01 A [facility] Outpatient Attender: ORTEGA BROOKS MD FP 10/30/2019 01:42:01 P [facility] Outpatient Attender: ORTEGA BROOKS MD 10/25/2019 07:55:01 A [facility] Outpatient Attender: ORTEGA BROOKS MD 10/20/2019 04:30:00 P [facility] Outpatient Attender: ORTEGA BROOKS MD 10/20/2019 04:29:00 P [facility] Outpatient Attender: ORTEGA BROOKS MD 10/20/2019 04:28:00 P [facility] Outpatient Attender: ORTEGA BROOKS MD 10/20/2019 01:56:01 P [facility] Outpatient Attender: ORTEGA BROOKS MD 10/20/2019 12:54:01 P [facility] Outpatient Attender: ORTEGA BROOKS MD 10/20/2019 12:42:00 P [facility] Outpatient Attender: ORTEGA BROOKS MD 10/20/2019 12:41:00 P [facility] Outpatient Attender: ORTEGA BROOKS MD 10/20/2019 12:40:00 P [facility] Outpatient Attender: ORTEGA BROOKS MD 10/20/2019 12:39:01 P [facility] Outpatient Attender: Himanshu Guerrier MDAdmitter: Himanshu Guerrier MD E [email or web address] 10/06/2019 02:08:17 PM [facility] 11/06/2019 01:34:00 PM [facility] Patient discharged. Outpatient Attender: ORTEGA BROOKS MD 09/25/2019 03:29:03 P [facility] Outpatient Attender: ORTEGA BROOKS MD 09/24/2019 10:08:59 A [facility] Outpatient Attender: ORTEGA BROOKS MD 09/20/2019 02:46:02 P M [facility] Outpatient Attender: OTREGA SAMUELS 08/24/2019 08:35:00 A M [facility] Medications Medication Brand Name Start [...] CPAP 06/04/2020 12:00:00 AM EDT active MEDENT ([facility], ) Levothyroxine Levothyroxine 02/20/2020 01:00:00 AM EDT 0 {mcg} completed NETSMART ([facility]) Nicotine Mini 2 MG Nicotine Mini 02/20/2020 01:00:00 AM EDT 0 {a sd} completed NETSMART ([facility]) Tylenol Tylenol 02/20/2020 01:00:00 AM EDT 0 {mg} compl eted NETSMART ([facility]) Eliquis 5 MG Eliquis 02/20/2020 01:00:00 AM EDT co mpleted NETSMART ([facility]) 5 mg 02/15/2020 12:00:00 AM [...] After finishing the 10mg loading dose course. [facility] 2 mg 02/06/2020 12:00:00 AM EDT lozenge [...] After finishing the 10mg loading dose course. [facility] Lortab 5-325 MG Lortab 01/30/2020 01:00:00 AM EDT completed NETSMART ([facility]) Omeprazole 40 MG Omeprazole 01/30/2020 01:00:00 AM EDT completed NETSMART ([facility] ) Colace Colace 01/30/2020 01:00:00 AM EDT 100.0 {mg} com pleted NETSMART ([facility]) Eliquis 5 MG Eliquis 01/30/2020 01:00:00 AM EDT co mpleted NETSMART ([facility]) apixaban 5 MG Oral Tablet apixaban (ELIQUIS) tablet 10 mg apixaban (ELIQUIS) tablet 10 mg 01/27/2020 09:00:00 PM EDT 10 mg Oral activ e 10 mg, Oral, 2 Times Daily, First dose on 01/27/20 at 2100, For 7 days [facility] Medication administered onsite Acetaminophen 325 MG / [...] mg from all sources in 24 hours.
[facility] Medication administered onsite apixaban 5 MG Oral Tablet apixaban (ELIQUIS) tablet 10 mg apixaban (ELIQUIS) tablet 10 mg 01/27/2020 12:00:00 PM EDT 10 mg Oral compl eted 10 mg, Oral, Once, 01/27/20 at 1200, For 1 dose [facility] Medication administered onsite apixaban 5 MG Oral Tablet Apixaban 5 MG Oral Tablet (E liquis) Apixaban 5 MG Oral Tablet (Eliquis) 01/27/2020 12:00:00 AM EDT 5 mg Oral a borted Take 1 tablet by mouth Two Times Daily [facility] apixaban 5 MG Oral Tablet Apixaban 5 MG Oral Tablet (E liquis) Apixaban 5 MG Oral Tablet (Eliquis) 01/27/2020 12:00:00 AM EDT 5 mg Oral a borted Take 1 tablet by mouth Two Times Daily After finishing the 10mg loading dose course. [facility] apixaban 5 MG Oral Tablet Apixaban 5 MG Oral Tablet (E LIQUIS) Apixaban 5 MG Oral Tablet (ELIQUIS) 01/27/2020 12:00:00 AM EDT 10 mg Oral a borted Take 2 tablets by mouth Two Times Daily for 7 days [facility] Acetaminophen 325 MG / Hydrocodone Smith trate 5 MG Oral Tablet HYDROcodone- Acetaminophen 5-325 MG Oral Tablet (LORTAB) HYDROcodone-Acetaminophen 5-325 MG Oral Tablet (LORTAB) 01/27/2020 12:00:00 AM EDT 1 {tbl} Oral active Take 1 tablet by mouth every 6 (six) hours as needed for up to 3 days, Max Daily Dose: 4 tablets [facility] apixaban 5 MG Oral Tablet Apixaban 5 MG Oral Tablet (E LIQUIS) Apixaban 5 MG Oral Tablet (ELIQUIS) 01/27/2020 12:00:00 AM EDT 5 mg Oral a borted Take 1 tablet by mouth Two Times Daily [facility] apixaban 5 MG Oral Tablet Apixaban 5 MG Oral Tablet (E LIQUIS) Apixaban 5 MG Oral Tablet (ELIQUIS) 01/27/2020 12:00:00 AM EDT 5 mg Oral a borted Take 1 tablet by mouth Two Times Daily [facility] Acetaminophen 325 MG / Hydrocodone Smith trate 5 MG Oral Tablet HYDROcodone- Acetaminophen 5-325 MG Oral Tablet (LORTAB) HYDROcodone-Acetaminophen 5-325 MG Oral Tablet (LORTAB) 01/27/2020 12:00:00 AM EDT 1 {tbl} Oral aborted Take 1 tablet by mouth every 6 (six) hours as needed for up to 3 days, Max Daily Dose: 4 tablets [facility] apixaban 5 MG Oral Tablet Apixaban 5 MG Oral Tablet (E LIQUIS) Apixaban 5 MG Oral Tablet (ELIQUIS) 01/27/2020 12:00:00 AM EDT 5 mg Oral a ctive Take 1 tablet by mouth Two Times Daily [facility] apixaban 5 MG Oral Tablet Apixaban 5 MG Oral Tablet (E LIQUIS) Apixaban 5 MG Oral Tablet (ELIQUIS) 01/27/2020 12:00:00 AM EDT 5 mg Oral a borted Take 1 tablet by mouth Two Times Daily [facility] 1 ML heparin sodium, porcine 1000 UNT/ML Injection heparin (porcine) 1000 units/mL injection 5,200 Units heparin (porcine) 1000 units/mL injectio n 5,200 Units 01/26/2020 12:15:00 PM EDT 5200 U Intravenous comple charmaine 5,200 Units, Intravenous, Once, Wed01/26/20 at 1215, For 1 dose
Adult High Dose / With Bolus Protocol.
[facility] Medication administered onsite sodium chloride 0.9 % bolus 1,000 mL [id number] 01/26/2020 12:15: 00 AM EDT 1000 mL Intravenous completed 1,000 mL , Intravenous, Once, Wed01/26/20 at 0015, For 1 dose [facility] Medication administered onsite 1 ML heparin sodium, porcine 1000 UNT/ML Injection heparin (porcine) 1000 units/mL injection 5,227 Units heparin (porcine) 1000 units/mL injectio n 5,227 Units 01/25/2020 09:30:00 PM EDT 5227 U Intravenous comple charmaine 5,227 Units, Intravenous, Once, Dina 01/25/20 at 2130, For 1 dose
Adult High Dose / With Bolus Protocol.
[facility] Medication administered onsite pantoprazole 40 MG Delayed Release Oral Tablet pantoprazole (PROTONIX) EC tablet 40 mg pantoprazole (PROTONIX) EC tablet 40 mg 01/25/2020 09:00:00 AM E DT 40 mg Oral active 40 mg, Ora l, Daily Standard, First dose on Wed01/25/20 at 0900, For 30 days
Do not crush or chew
[facility] Medication administered onsite sodium chloride 0.9 % bolus 1,000 mL 01/25/2020 06:30: 00 AM EDT 1000 mL Intravenous completed 1,000 mL , Intravenous, Once, Dina 01/25/20 at 0630, For 1 dose [facility] Medication administered onsite sodium chloride 0.9 % bolus 1,000 mL 01/24/2020 10:30: 00 PM EDT 1000 mL Intravenous completed 1,000 mL , Intravenous, Once, Wed01/24/20 at 2230, For 1 dose [facility] Medication administered onsite 1 ML heparin sodium, porcine 1000 UNT/ML Injection heparin (porcine) 1000 units/mL injection 5,300 Units heparin (porcine) 1000 units/mL injectio n 5,300 Units 01/24/2020 10:15:00 PM EDT 5300 U Intravenous comple charmaine 5,300 Units, Intravenous, Once, Wed01/24/20 at 2215, For 1 dose
Adult High Dose / With Bolus Protocol.
[facility] Medication administered onsite NaCl infusion 0.9 % 01/24/2020 04:15:00 PM EDT Intravenous completed at 100 mL/hr, Intrav enous, Continuous, Starting Wed01/24/20 at 1615, For 24 hours [facility] Medication administered onsite 500 ML heparin sodium, porcine 50 UNT/ML Injection heparin in NaCl 0.45 % infusion 50 units/mL heparin in NaCl 0.45 % infusion 50 units/mL 01/24/2020 03:00:00 PM EDT 3450 U/h Intravenous aborted 3,450 Units/hr (69 mL/hr), Intravenous, at 69 mL/hr, Continuous, Starting Wed01/24/20 at 1500, For 30 days
Adult High Dose / With Bolus Protocol.
[facility] Medication administered onsite 1 ML heparin sodium, porcine 1000 UNT/ML Injection heparin (porcine) 1000 units/mL injection 5,275 Units heparin (porcine) 1000 units/mL injectio n 5,275 Units 01/24/2020 02:45:00 PM EDT 5275 U Intravenous comple charmaine 5,275 Units, Intravenous, Once, Wed01/24/20 at 1500, For 1 dose
Adult High Dose / With Bolus Protocol.
[facility] Medication administered onsite Docusate Sodium 100 MG Oral Capsule docusate sodium (C OLACE) capsule 100 mg docusate sodium (COLACE) capsule 100 mg 01/24/2020 09:00:00 AM EDT 100 mg Oral active 100 mg, Oral, 2 Times Daily, First dose on Wed01/24/20 at 0900, For 30 days [facility] Medication administered onsite 1 ML heparin sodium, porcine 1000 UNT/ML Injection heparin (porcine) 1000 units/mL injection 5,295 Units heparin (porcine) 1000 units/mL injectio n 5,295 Units 01/24/2020 06:45:00 AM EDT 5295 U Intravenous comple charmaine 5,295 Units, Intravenous, Once, Wed01/24/20 at 0645, For 1 dose
Adult High Dose / With Bolus Protocol.
[facility] Medication administered onsite calcium gluconate in NaCl 0.9 % infusion 1 g/50 mL [id number] 01/24/2020 02:30:00 AM EDT 1 g Intravenous completed 1 g, Intravenous, Administer over 1 Hours, Once, Wed01/24/20 at 0230, For 1 dose
1 g calcium gluconate = 90 mg elemental Ca++ = 4.5 mEq Ca++. Dosed on mg of calcium gluconate.
[facility] Medication administered onsite Acetaminophen 325 MG Oral Tablet acetaminophen (TYLENO L) tablet 975 mg acetaminophen (TYLENOL) tablet 975 mg 01/23/2020 10:45:00 PM EDT 97 5 mg Oral completed 975 mg, Oral, O nce, 01/23/20 at 2245, For 1 dose
Maximum daily dose of acetaminophen is 3,000 mg from all sources in 24 hours.
[facility] Medication administered onsite 500 ML heparin sodium, porcine 50 UNT/ML Injection heparin in NaCl 0.45 % infusion 50 units/mL heparin in NaCl 0.45 % infusion 50 units/mL 01/23/2020 10:15:00 PM EDT 2150 U/h Intravenous aborted 2,150 Units/hr (43 mL/hr), Intravenous, at 43 mL/hr, Continuous, Starting Wed01/23/20 at 2215, For 30 days [facility] Medication administered onsite 7.5-325 mg 01/15/2020 12:00:00 AM EDT tablet 60 TAKE 1 TABLET BY MOUTH EVERY 6 HOURS NEEDED FOR SEVERE HIP PAIN MAXIMUM DAILY DOSE = 4 TAKE 1 TABLET BY MOUTH EVERY 6 HOURS NEEDED FOR SEVERE HIP PAIN MAXIMUM DAILY DOSE = 4 SOLD: 01/17/2020 [facility] Omeprazole 40 MG Delayed Release Oral Ca psule Omeprazole 40 MG Oral Capsule Delayed Release (PRILOSEC) Omeprazole 40 MG Oral Capsule Delayed Re lease (PRILOSEC) 12/22/2019 12:00:00 AM EDT 1 {capsule} Oral ac tive Take 1 capsule by mouth daily [facility] 5-325 mg 12/21/2019 12:00:00 AM EDT tablet 60 TAKE 1 TABLET BY MOUTH EVERY 4-6 HOURS NEEDED FOR SEVERE PAIN MAXIMUM DAILY DOSE = 2 TAKE 1 TABLET BY MOUTH EVERY 4-6 HOURS NEEDED FOR SEVERE PAIN MAXIMUM DAILY DOSE = 2 SOLD: 12/22/2019 [employer] [facility] Acetaminophen 325 MG / Hydrocodone Smith trate 5 MG Oral Tablet HYDROcodone- Acetaminophen 5-325 MG Oral Tablet (LORTAB) HYDROcodone-Acetaminophen 5-325 MG Oral Tablet (LORTAB) 12/21/2019 12:00:00 AM EDT 1 {tbl} Oral aborted Take 1 tablet by mouth as needed [facility] 5-325 mg 11/22/2019 12:00:00 AM EDT tablet 60 TAKE ONE TABLET BY MOUTH EVERY 4 TO 6 HOURS NEEDED FOR SEVERE PAIN, MAXIMUM DAILY DOSE = 2 TAKE ONE TABLET BY MOUTH EVERY 4 TO 6 HOURS NEEDED FOR SEVERE PAIN, MAXIMUM DAILY DOSE = 2 SOLD: 11/22/2019 [facility] 2 mg 11/10/2019 12:00:00 AM EDT [...] completed doxycycline monohydrate 100 MG Oral Capsule [place] ([facility]) Furosemide 40 MG Oral Tablet furosemide 40 mg tablet furosemide 40 mg tablet completed furosemide 40 MG Oral Tablet [facility] ([facility]) Insurance Providers Payer name Policy type / Coverage type Policy ID Covered republican ID Covered republican's relationship to delacruz Policy Delacruz Plan Information [employer] MCDO [id number] SP [id number] [facility] O [id number] S [id number] Managed Care - [facility] Community Plan P [id number] S [id number] Medicaid S [id number] S [id number] Managed Care - [facility] Community Plan P [id number] S [id number] [facility] I [id number] Self [id number] [facility] I [id number] Self [id number] Medicaid S [id number] S [id number] [facility] MEDICAID [id number] [facility] MEDICAID [id number] Reyna [id number] Managed Care - [facility] Community Plan P [id number] S [id number] Managed Care - [facility] Community Plan P [id number] S [id number] Managed Care - [facility] Community Plan P [id number] S [id number] Medicaid S [id number] S [id number] [facility] Comm Plan Medicaid F [id number] SELF [id number] Managed Care - Community Plan [facility] P [id number] S [id number] Managed Care - Community Plan [facility] P [id number] S [id number] Self Pay P [id number] S [id number] SELF PAY ONLY UNK SP UNK SELF PAY UNAVAILABLE SP UNAVAILA BLE Problems, Conditions, and Diagnoses Code Display Name Description Problem Type Effective Dates Data Source(s) 86311791 Cigarette smoker Cigarette Smoker Problem 06/20/2020 12 :00:00 AM EDT [place] ([facility]) 208814237 Thromboembolism of vein Thromboembolism of Vein Proble m 06/20/2020 12:00:00 AM EDT [place] ([facility]) 449839399 Morbid obesity Morbid Obesity Problem 06/20/2020 12:00: 00 AM EDT [place] ([facility]) 85537106 Vitamin D deficiency Vitamin D Deficiency Problem 06/20/2020 12:00:00 AM EDT [place] ([facility]) 74248633 Cigarette smoker Cigarette Smoker Problem 06/20/2020 12 :00:00 AM EDT [place] ([facility]) 337714141 Thromboembolism of vein Thromboembolism of Vein Proble m 06/20/2020 12:00:00 AM EDT [place] ([facility]) 362792516 Morbid obesity Morbid Obesity Problem 06/20/2020 12:00: 00 AM EDT [place] ([facility]) 09491048 Vitamin D deficiency Vitamin D Deficiency Problem 06/20/2020 12:00:00 AM EDT [place] ([facility]) 67324481 Cigarette smoker Cigarette Smoker Problem 06/20/2020 12 :00:00 AM EDT [place] ([facility]) 235636341 Thromboembolism of vein Thromboembolism of Vein Proble m 06/20/2020 12:00:00 AM EDT [place] ([facility]) 147934914 Morbid obesity Morbid Obesity Problem 06/20/2020 12:00: 00 AM EDT [place] ([facility]) 35600495 Vitamin D deficiency Vitamin D Deficiency Problem 06/20/2020 12:00:00 AM EDT [place] ([facility]) M16.11 Unilateral primary osteoarthritis, right hip Unilateral primary osteoarthritis, right hip 02/21/2020 03:26:37 PM EDT [facility] 012710133 Idiopathic osteoarthritis Idiopathic Osteoarthritis Pr oblem 02/20/2020 12:00:00 AM EDT [place] ([facility]) 205790339 Idiopathic osteoarthritis Idiopathic Osteoarthritis Pr oblem 02/20/2020 12:00:00 AM EDT [place] ([facility]) 352178365 Idiopathic osteoarthritis Idiopathic Osteoarthritis Pr oblem 02/20/2020 12:00:00 AM EDT [place] ([facility]) V70.0 Encounter for general adult medical exam ination with abnormal findings Encounter for general adult medical examination with abnormal findings 02/15/2020 08:34:39 AM EDT [facility] [id number] Other specified hypothyroidism Other specified hypothy roidism 02/15/2020 08:34:39 AM EDT [facility] V85.43 BMI 50.0-59.9 BMI 50.0-59.9 02/15/2020 08:34:39 AM EDT [facility] 344506146 Procedure by method Procedure by Method Problem 0 02/15/2020 12:00:00 AM EDT [place] ([facility]) 328060704 Body mass index 30+ - obesity Body Mass Index 30+ - Ob esity Problem 02/15/2020 12:00:00 AM EDT [place] ([facility]) 61541430 Hypothyroidism Hypothyroidism Problem 02/15/2020 12:00: 00 AM EDT [place] ([facility]) 402615941 Procedure by method Procedure by Method Problem 0 02/15/2020 12:00:00 AM EDT [place] ([facility]) 827390928 Body mass index 30+ - obesity Body Mass Index 30+ - Ob esity Problem 02/15/2020 12:00:00 AM EDT [place] ([facility]) 66515922 Hypothyroidism Hypothyroidism Problem 02/15/2020 12:00: 00 AM EDT [place] ([facility]) 569802045 Procedure by method Procedure by Method Problem 0 02/15/2020 12:00:00 AM EDT [place] ([facility]) 443387921 Body mass index 30+ - obesity Body Mass Index 30+ - Ob esity Problem 02/15/2020 12:00:00 AM EDT [place] ([facility]) 69949144 Hypothyroidism Hypothyroidism Problem 02/15/2020 12:00: 00 AM EDT [place] ([facility]) 327.23 Obstructive sleep apnea syndrome Obstructive sleep primary care md ea syndrome 02/05/2020 02:34:23 PM EDT [facility] I26.09 Other pulmonary embolism with acute cor pulmonale Other pulmonary embolism with acute cor pulmonale 02/05/2020 02:34:23 PM EDT [facility] 00394472 Acute cor pulmonale Acute Cor Pulmonale Problem 0 02/05/2020 12:00:00 AM EDT [place] ([facility]) 90102033 Obstructive sleep apnea syndrome Obstructive Sle ep Apnea Syndrome Problem 02/05/2020 12:00:00 AM EDT [place] ([facility]) 12205834 Acute cor pulmonale Acute Cor Pulmonale Problem 0 02/05/2020 12:00:00 AM EDT [place] ([facility]) 16603991 Obstructive sleep apnea syndrome Obstructive Sle ep Apnea Syndrome Problem 02/05/2020 12:00:00 AM EDT [place] ([facility]) 96525314 Acute cor pulmonale Acute Cor Pulmonale Problem 0 02/05/2020 12:00:00 AM EDT [place] ([facility]) 63716855 Obstructive sleep apnea syndrome Obstructive Sle ep Apnea Syndrome Problem 02/05/2020 12:00:00 AM EDT [place] ([facility]) I82.412 Acute embolism and thrombosis of left fe moral vein Acute embolism and thrombosis of left femoral vein Problem 01/29/2020 01:00:00 AM EDT [place] ([facility]) I82.432 Acute embolism and thrombosis of left po pliteal vein Acute embolism and thrombosis of left popliteal vein Problem 01/29/2020 01:00:00 AM EDT [facility] ([facility]) E66.01 Morbid (severe) obesity due to excess ca lories Morbid (severe) obesity due to excess calories Problem 01/29/2020 01:00:00 AM EDT [facility] ( [facility]) G47.33 Obstructive sleep apnea (adult) (pediatr ic) Obstructive sleep apnea (adult) (pediatric) Problem 01/29/2020 01:00:00 AM EDT [facility] ([facility]) M16.0 Bilateral primary osteoarthritis of hip Bilateral primary osteoarthritis of hip Problem 01/29/2020 01:00:00 AM EDT [facility] ([facility]) G89.29 Other chronic pain Other chronic pain Problem 0 01:00:00 AM EDT [facility] ([facility]) F17.210 Nicotine dependence, cigarettes, uncompl icated Nicotine dependence, cigarettes, uncomplicated Problem 01/29/2020 01:00:00 AM EDT [facility] ([facility]) 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.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 (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 s terminologist (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s Problem 01/29/2020 01:00:00 AM EDT [facility] ([facility]) Z91.81 History of falling History of falling Problem 0 01:00:00 AM EDT [facility] ([facility]) Z68.44 Body mass index (BMI) 60.0-69.9, adult B pravin mass index (BMI) 60.0-69.9, adult Problem 01/29/2020 01:00:00 AM EDT [facility] ([facility]) Z60.2 Problems related to living alone Problems related to l iving alone Problem 01/29/2020 01:00:[facility] ) I26.09 Other pulmonary embolism with acute cor pulmonale Other pulmonary embolism with acute cor pulmonale Problem 01/29/2020 01:00:00 [facility] I27.82 Chronic pulmonary embolism Chronic pulmonary embolism Problem 01/29/2020 01:00:00 AM EDT [facility] ) 719.07 Ankle edema Ankle edema 11/10/2019 09:17:31 AM EDT [facility] V15.82 Ex-smoker Ex-smoker 11/10/2019 09:17:31 AM ED T [facility] 681016337 Clinical finding Clinical Finding Problem 11/10/2019 12 :00:00 AM EDT [facility]) 029016213 Localized edema Localized Edema Problem 11/10/2019 12:0 0:00 AM EDT [facility]) 387021961 Clinical finding Clinical Finding Problem 11/10/2019 12 :00:00 AM EDT [facility]) 665046784 Localized edema Localized Edema Problem 11/10/2019 12:0 0:00 AM EDT [facility]) 382910134 Clinical finding Clinical Finding Problem 11/10/2019 12 :00:00 AM EDT [facility]) 490012673 Localized edema Localized Edema Problem 11/10/2019 12:0 0:00 AM EDT [facility]) F43.20 Adjustment disorder, unspecified Adjustment diso rders, Unspecified Diagnosis 07/18/2020 12:00:00 AM EST [facility] ([facility]) F50.9 Eating disorder, unspecified Unspecified feeding or eating disorder Diagnosis 07/18/2020 12:00:00 AM EST [facility] ([facility]) I26.94 Multiple subsegmental pulmonary emboli w ithout acute cor pulmonale Multiple subsegmental pulmonary emboli without acute cor pulmonale Diagnosis 01/24/2020 05:37:49 PM EDT [facility] I26.99 Other pulmonary embolism without acute c or pulmonale Other pulmonary embolism without acute cor pulmonale Diagnosis 01/24/2020 05:37:49 PM EDT [facility] Z68.44 Body mass index (BMI) 60.0-69.9, adult B pravin mass index (bmi) 60.0-69.9, adult Diagnosis 01/24/2020 05:34:15 PM EDT [facility] E66.01 Morbid (severe) obesity due to excess ca lories Morbid (severe) obesity due to excess calories Diagnosis 01/24/2020 05:34:15 PM EDT [facility] LLE DVT LLE DVT Diagnosis 01/23/2020 09:52:49 PM ED [facility] Multiple PE's Multiple PE's Diagnosis 01/23/2020 09:52:49 PM EDT [facility] E66.01 Morbid (severe) obesity due to excess ca lories Morbid (severe) obesity due to excess ca Diagnosis 11/06/2019 07:26:38 AM EDT K21.9 Gastro-esophageal reflux disease without esophagitis Gastro-esophageal reflux disease without Diagnosis 11/06/2019 07:25:00 AM EDT [facility] Surgeries/Procedures Procedure Description Date Indications Data Source(s) ANTI-XA UNFRACTIONATED HEPARIN LEVEL ANTI-XA UNFRACTIONATED HEPARIN LEVEL Routine 01/27/2020 5:29 AM EDT 01/27/2020 09:29:00 AM [facility] PROBNP PROBNP Routine 01/27/2020 5:29 AM EDT 01/27/20 20 09:29:00 AM [facility] PROTHROMBIN TIME PROTIME INR Routine 01/27/2020 5:29 AM EDT 01/27/2020 09:29:00 AM [facility] BLOOD COUNT COMPLETE AUTOMATED CBC Routine 01/27/2020 5:29 A M EDT 01/27/2020 09:29:00 AM [facility] BASIC METABOLIC PANEL CALCIUM TOTAL BASIC METABOLIC PANEL Routi ne 01/27/2020 5:29 AM EDT 01/27/2020 09:29:00 AM EDT [facility] HEPARIN ASSAY ANTI-XA UNFRACTIONATED HEPARIN LEVEL Routine 01/26/2020 10:50 PM EDT 01/27/2020 02:50:00 AM EDT [facility] HEPARIN ASSAY ANTI-XA UNFRACTIONATED HEPARIN LEVEL Routine 01/26/2020 5:22 PM EDT 01/26/2020 09:22:00 PM EDT [facility] HEPARIN ASSAY ANTI-XA UNFRACTIONATED HEPARIN LEVEL Routine 01/26/2020 11:07 AM EDT 01/26/2020 03:07:00 PM EDT [facility] HEPARIN ASSAY ANTI-XA UNFRACTIONATED HEPARIN LEVEL Routine 01/26/2020 3:21 AM EDT 01/26/2020 07:21:00 AM EDT [facility] PROTHROMBIN TIME PROTIME INR Routine 01/26/2020 3:21 AM EDT 01/26/2020 07:21:00 AM [facility] BLOOD COUNT COMPLETE AUTOMATED CBC Routine 01/26/2020 3:21 A M EDT 01/26/2020 07:21:00 AM [facility] BASIC METABOLIC PANEL CALCIUM TOTAL BASIC METABOLIC PANEL Routi ne 01/26/2020 3:21 AM EDT 01/26/2020 07:21:00 AM EDT [facility] HEPARIN ASSAY ANTI-XA UNFRACTIONATED HEPARIN LEVEL Routine 01/25/2020 8:01 PM EDT 01/26/2020 12:01:00 AM EDT [facility] HEPARIN ASSAY ANTI-XA UNFRACTIONATED HEPARIN LEVEL Routine 01/25/2020 11:59 AM EDT 01/25/2020 03:59:00 PM EDT [facility] HEPARIN ASSAY ANTI-XA UNFRACTIONATED HEPARIN LEVEL Routine 01/25/2020 4:59 AM EDT 01/25/2020 08:59:00 AM EDT [facility] NATRIURETIC PEPTIDE PROBNP Routine 01/25/2020 4:59 AM EDT 01/25/2020 08:59:00 AM [facility] PROTHROMBIN TIME PROTIME INR Routine 01/25/2020 4:59 AM EDT 01/25/2020 08:59:00 AM [facility] BLOOD COUNT COMPLETE AUTOMATED CBC Routine 01/25/2020 4:59 A M EDT 01/25/2020 08:59:00 AM [facility] BASIC METABOLIC PANEL CALCIUM TOTAL BASIC METABOLIC PANEL Routi ne 01/25/2020 4:59 AM EDT 01/25/2020 08:59:00 AM EDT [facility] HEPARIN ASSAY ANTI-XA UNFRACTIONATED HEPARIN LEVEL Routine 01/24/2020 9:10 PM EDT [facility]/25[facility]2020 [facility] Routine 01/24/2020 9:10 PM EDT 01/25/2020 01:10:00 AM [facility] BLOOD COUNT COMPLETE AUTOMATED CBC Timed 01/24/2020 9:10 P M EDT 01/25/2020 01:10:00 AM [facility] HEPARIN ASSAY ANTI-XA UNFRACTIONATED HEPARIN LEVEL Routine 01/24/2020 1:36 PM EDT 01/24/2020 05:36:00 PM EDT [facility] ECHO TTHRC R-T 2D W/WOM-MODE COMPL SPEC&COLR DOP ECHOCARDIO GRAM 2D COMPLETE Routine 01/24/2020 9:31 AM EDT 01/24/2020 01:31:23 PM [facility] HEPARIN ASSAY ANTI-XA UNFRACTIONATED HEPARIN LEVEL Routine 01/24/2020 5:46 AM EDT 01/24/2020 09:46:00 AM EDT [facility] BLOOD COUNT COMPLETE AUTO&AUTO DIFRNTL WBC COUNT CBC AND DIFFER ENTIAL Routine 01/24/2020 5:46 AM EDT 01/24/2020 09:46:00 AM [facility] TROPONIN QUANTITATIVE TROPONIN T Routine 01/24/2020 5:46 AM EDT 01/24/2020 09:46:00 AM [facility] PHOSPHORUS INORGANIC PHOSPHORUS LEVEL Routine 01/24/2020 5:46 AM E DT 01/24/2020 09:46:00 AM [facility] MAGNESIUM MAGNESIUM LEVEL Routine 01/24/2020 5:46 AM EDT 01/24/2020 09:46:00 AM [facility] COMPREHENSIVE METABOLIC PANEL COMPREHENSIVE METABOLIC PANEL Rou lisa 01/24/2020 5:46 AM EDT 01/24/2020 09:46:00 AM EDT [facility] UH COVID-19 PCR UH COVID-19 PCR STAT 01/23/2020 10:41 PM EDT 01/24/2020 02:41:00 AM [facility] BLOOD COUNT COMPLETE AUTO&AUTO DIFRNTL WBC COUNT CBC AND DIFFER ENTIAL Routine 01/23/2020 10:31 PM EDT 01/24/2020 02:31:00 AM EDT [facility] TROPONIN QUANTITATIVE POCT ISTAT TROPONIN Routine 01/23/2020 10:12 PM EDT 01/24/2020 02:12:00 AM EDT [facility] HEPARIN ASSAY ANTI-XA UNFRACTIONATED HEPARIN LEVEL Routine 01/23/2020 10:09 PM EDT 01/24/2020 02:09:00 AM EDT [facility] BLOOD COUNT COMPLETE AUTO&AUTO DIFRNTL WBC COUNT CBC AND DIFFER ENTIAL Routine 01/23/2020 10:09 PM EDT 01/24/2020 02:09:00 AM EDT [facility] BASIC METABOLIC PANEL CALCIUM TOTAL BASIC METABOLIC PANEL Routi ne 01/23/2020 10:09 PM EDT 01/24/2020 02:09:00 AM EDT [facility] EKG 12-LEAD - CMAXX REPORT EKG 12-LEAD - CMAXX REPORT 01/23/2020 10:08 PM EDT 01/24/2020 02:08:39 AM EDT [facility] EKG 12-LEAD - CMAXX REPORT EKG 12-LEAD - CMAXX REPORT 01/23/2020 10:08 PM EDT 01/24/2020 02:08:39 AM EDT [facility] EKG 12-LEAD EKG 12-LEAD STAT 01/23/2020 10:08 PM EDT 01/24/2020 02:08:39 AM EDT [facility] UPPER NDSC BIOPSY SINGLE/MULTIPLE 11/06/2019 12:00:00 AM EDT [facility] ([facility]) Results ID Date Data Source [id number] 10/16/2020 03:56:00 AM EST [facility] Name Value Range Interpretation Code Description Data Savi rce(s) Supporting Document(s) SARS coronavirus 2 RNA [Presence] in Res piratory specimen by BEVERLY with probe detection NEGATIVE [facility] This lab was ordered by [facility] a nd reported by [facility]. ID Date Data Source [id number] 05/09/2020 09:44:34 AM EDT [facility] Labs In-House Blood TestsDate/Time Colle cted: May 09, 2020 9:37 AMTest Result Reference Range Normal ValueComments: Labs drawn in office taken from right hand. Mari was a hard stick, but tolerated it well. Majo Ashley [place]ITT[place], May 09, 2020 9:45 AMAssessment & Plan Orders:[id number] Vst-Est Level I [CPT-17305] 55592 - Venipuncture [CPT-74620] Name Value Range Interpretation Code Description Data Savi rce(s) Supporting Document(s) ID Date Data Source [id number] 05/09/2020 09:36:00 AM EDT [facility] Name Value Range Interpretation Code Description Data Savi rce(s) Supporting Document(s) HGBA1C 6.4 % N [facility] ID Date Data Source [id number] 05/09/2020 09:36:00 AM EDT [facility] Name Value Range Interpretation Code Description Data Savi rce(s) Supporting Document(s) BG FASTING 132 mg/dL 70-100 H [facility] y Health TSH 2.220 microintl units/mL 0.358-3.740 N [facility] Family [facility] ID Date Data Source [id number] 02/15/2020 08:10:42 AM EDT [facility] Measurements & CalculationsHeight: 76 [...] during this visit, including review of any nmkz-nit-nfprigz medications, herbal therapies, and/or supplements.Allergy ReviewAllergy List [...] adult medical examination with abnormal findings (ICD-V70.0) (KCO83-U70.01) Assessment: Instructions: Diet and exercise.Fasting blood tests reviewed.Other specified hypothyroidism (ICD10- E03.8) Assessment: Instructions: Newly diagnosed and this may be a factor in both his sleep apnea and obesity.Recheck 3 months with fasting blood tests before.Assessed:Obstructive sleep apnea syndrome (ICD-327.23) (QMV25-F78.33) Assessment: Instructions: Refer to pulomnary.Pain in right hip (ICD-719.45) (TQS60-U18.551) Assessment: Instructions: Medication options are limited:Opiates are [...] Qty: 60[Tablet] Refills: 5Allergies:SOMA (Severe)Orders:Preventive, Est, (40-64) [CPT-61633] Pulmonology Consult [CPT-57477] COMP METABOLIC PANEL [CPT-08492] TSH [CPT-92575] LIPID PANEL [CPT-86223] HgBA1c [CPT-25992] Medications:LEVOTHYROXINE SODIUM 100 MCG ORAL TABLET (LEVOTHYROXINE SODIUM) One tablet by mouth every day #30[Tablet] x 2 Route:ORAL Entered and Authorized by: John Martinez MD Method used: Electronically to [facility] (retail) [address] [place] [address] Note to Pharmacy: Route: ORAL; RxID: [id number] 5 MG ORAL TABLET (APIXABAN) One po bid. #60[Tablet] x 5 Entered and Authorized by: John Martinez MD Method used: Electronically to [facility] (retail) [address] [place] [address] Fax: Note to Pharmacy: Route: ORAL; RxID: [id number] signed by John Martinez MD on 02/15/2020 at 9:56 AM Name Value Range Interpretation Code Description Data Savi rce(s) Supporting Document(s) ID Date Data Source [id number] 02/07/2020 07:43:23 AM EDT [facility] Labs In-House Blood TestsDate/Time Colle cted: February 07, 2020 7:43 AMTest Result Reference Range Normal ValueComments: blood draw done in office,sam sunshine from right ac, tolerated well.Emely Schmitt, February 07, 2020 7:44 AMAssessment & Plan Orders:[id number] Vst-Est Level I [CPT-29212] 16793 - Venipuncture [CPT-28736] Name Value Range Interpretation Code Description Data Savi rce(s) Supporting Document(s) ID Date Data Source [id number] 02/07/2020 07:40:00 AM EDT [facility] Name Value Range Interpretation Code Description Data Savi rce(s) Supporting Document(s) HCT 47.0 % 42.0-52.0 N [facility] HGB 14.9 g/dL 13.5-17.5 N [facility] MCH 31.7 G/DL pg 32.0-36.5 [facility] PG % 27.0-33.0 N [facility] PLATELETS 194 10 10*3/mm3 150-450 N [facility] RBC 5.29 10 10*6/mm3 4.30-6.10 N [facility] RDW 15.2 % 11.5-14.5 H [facility] WBC TOTAL 9.6 4.0-10.0 N [facility] ID Date Data Source [id number] 02/07/2020 07:40:00 AM EDT [facility] Name Value Range Interpretation Code Description Data Savi rce(s) Supporting Document(s) BG FASTING 118 mg/dL 70-100 H [facility] TSH 4.460 microintl units/mL 0.358-3.740 H [facility] VIT D25 TOT 15.0 ng/mL 30.0-100.0 L [facility] ID Date Data Source [id number] 02/07/2020 07:40:00 AM EDT [facility] Name Value Range Interpretation Code Description Data Savi rce(s) Supporting Document(s) HGBA1C 6.5 % N [facility] ID Date Data Source [id number] 02/05/2020 01:42:25 PM EDT [facility] Measurements & CalculationsHeight: 76 [...] been admitted to the hospital? Yes - [facility] for PE Have you been [...] seen Ortho for a while. Was taking Thida for this. We had recently increased this [...] Problems:Added: Obstructive sleep apnea syndrome (ICD- 327.23) (OJI03-Q80.33) Assessment: Instructions: Refer to pulmonary.We discussed the importance eof treating this as well as the danger of using Thida with its risk of addiitive respiratory depression. He is anxious about this possibility and I share his cocnern. I would like to avoid this combination for a while and have him focus on using Tylenol until we can address this.Other pulmonary embolism with acute cor pulmonale (NTU03-R79.09) Assessment: Instructions: Due to obesity and immobility. Symptomatically improved.Cotninue current dose of Eliquis for at least 6 months.Assessed:Obesity, unspecified (KTN02-E93.9) Assessment: Instructions: He will elisa bariatric surgery to reschedule with them. The sooner the better.Pain in right hip (ICD-719.45) (PJI88-I68.551) Assessment: Instructions: He will call Ortho to reschedule.Patient Instructions/Care Plan: Obstructive sleep apnea syndrome: Refer to pulmonary.We discussed the importance eof treating this as well as the danger of using Thida with its risk of addiitive respiratory depression. [...] daysOrders:Adult - Ofc Vst, EST, Level III [CPT-85063] Medications:EQL NICOTINE POLACRILEX 2 MG MOUTH/THROAT LOZENGE (NICOTINE POLACRILEX) one lozenge slowly dissolved in mouth q2h prn #150[Lozenge] x 1 Route:MOUTH/THROAT Entered and Authorized by: John Martinez MD Method used: Electronically to [facility] (retail) [address] [place] [address] Note to Pharmacy: Route: M/T; RxID: [id number] signed by John Martinez MD on 02/05/2020 at 2:34 PM Name Value Range Interpretation Code Description Data Savi rce(s) Supporting Document(s) ID Date Data Source [id number] 01/30/2020 09:53:13 PM EDT [facility] CT 2ND OPINION READ - CHEST [id number] [id number] by:Krishna Parr MDEXAMINATION: CT 2ND OPINION READ - CHEST [id number] INDICATION: 49-year-old male with pulmonary emboli, assess for right heart strain.TECHNIQUE: Axial CTA images of the chest with contrast were acquired at [facility] on January 23, 2020 and submitted for [...] rce(s) Supporting Document(s) ID Date Data Source [id number] 01/30/2020 06:02:32 PM EDT [facility] Name Value Range Interpretation Code Description Data Savi rce(s) Supporting Document(s) ED Provider Note [facility] ICQQFg0fIvSDBvSe52/IUMzrUIWzw7NgPVaaEHb0XSkoRZRqR3ByCHQ8yO2zPVN8QIwUFbFhFhSsGhSr lbm [file] kOWhJApwRF8IAJU+Estefani+Vz3YUZRbRCIeKPZhDjEcUWEKArKjX4DqD0KCq3ZpQ9HyJG98sCwcemFjAMof LN3RPX6aEPVbQHLLTT9QxNCctS7advJ0UqEjAYLPQpPpX29qwXWuTBYtRPVkBEFmPk7GHVEqQ9PqspMt wTcfoqPuRUChGQNOMJ2YLVagmrBiuLAokEizUQ63pT tlIA4ZFg9KBqKdPS3upg5TtHPoUf4RSKY4OT2YQPOoIMEkETWdIHV9ZLSvVjUzKHroIMBtOWAsHLI1WH EgSQCoEY0WBoEhQFYpEDMmZhwlOBBsQWIwlt8VGSRnZWE3TzThOMGdOKYfCIWaOPnmZYIaWVBgURH1IY EtROWmJY3QLoOcAMBbDFYzMsfrRBGoTVKmox6LRRNg QLRyRdG8BFVfTFGvTEQjXApwWFOqUWH8FfIhMORwCTOmMW1ACgCbLRXsFKG5YWkkCYVyGGMtrr7UBUZp JQSnBUU8OhKnIWYmBCLrUWmeQNUsEWZ8Olr7FBBjNETwBZ0HJrToCFNkTMV8NUcdGCHwBUTjse0IKOVu DJDfVIx9XHNiBZLhFOPnUFadETHeMTTuGAJ6PKExFB GxHC9WMaJyRADdZKUhTxZtCATtJUYbmp2TNGOoLBXiAVE4WvHeWGFbXGGbUSvlYNRpWEX7KmCnXWQnTQ IbHC7ADnBeIVZcYKT2VYzwSTQtKVOklg5QZLPbELClJYF4KXMjNGWbUTRjJLdiRSAsXTM3Zfm0GYQfYE KqJI4SIoBiKXXuFCmsPBCgBJMuKWGejm1GFQSqDOQd BqJcEjHtJWQvCDVlOPfpFTDgWHApWpB4ACVlNIXnOC5JMuOzYXRiWfY2MTAdZHJkJPDpac4WRLOyIYJf SXLlCcUtMTIcGPEoUYikJQRsEUN8Hhj4VQIwIPCcOH0OXtMkWSLkYve5KVChYTTsXEFswu3ADTAnHXSa NENyLMRaGJXyBVFzBLtwSJRwUGGuSVP2MQGkKSVgTB 2PQmXoSPWaDfJdOISaKDZeTSNctj7VVNDcAWKhMkKyCYIfRTKeYOYwEIgzJPNfBMSpOcRdKOGrQIYgLK 6YPmDcUIHdFnE0PVvaPJKqKRHrdq9IEBYbDMWgWfO3WZEnATHxGVCdESirJYCaCZO5ZkHoHONyLCZxEF 6BTaVvSYEvIzW8PRDuXTIsVJGuhf1FGGYpHACaJAg4 QBTeWKPsOCSfKSzbMQHrQLS8CNVzIMDfAFUvQI1OMdUnGGNqZnJuKDiwXSXdVBAtbf9QQRHsFXIfFkWn XUVjKGAhHZLpJXsgOLCtQUU4IvE8VFRpZOLfZE9JIlDcAYYtBRfkFyYxMOPzCNQnos6LSBSxDUC4AUH1 NtLmMTKsLXNfCJouRGMcSVV0ANetOJVvNJJkOJ4IGp LvJLYzVWu9BwqiOYMxRSSnro7AFOBvGOO1WBW2ULDcBVFoDPXlMGrcHTLaLAQ6ZhE8UNJdWFBtSP4YQz KxSVLiYAk0HuIwQUEaWLMsbq7HXUXmDKB8TPd3IVGtNVIrZBBrNVibWBAyFGDaKTC0LUUfGVGtRA9ORd ZiTZRwQBUdSVMlXEDyPHUcor2WLUMiJOJ9STW5TBZt ZWEeQKDyIRdgYJWiJCAmFgG0ZPOlOVQsHL5INmLcDNHoNLAaMYUxDDTrLKVvbk9YRIJaZTU7HwC9CmNd SDAmOKOkIFzrXIXjSCAuQXn4EGZmTEMzXK0FEjLuQHFnSEI7JHYvIWEaBJQjxq0NOLOtSTQ5Lar4LAWj JEUxJCSyJMavJNXlEJB2QEX9TSYwUDZmVJ0JNzDbKN knVVCGBwy6ZMrqA0o2USA4GA9XV4Vye2JaBXkrFMZMCKrmNG8lwcXuSCJjKi5ZW6iFHkuxXFZnBKErIZ BfFPLjZTBfRWA6WEKxQOOxFpElFkQmHy9lYDDjBxWfRIVuFWM7JQBcHZH6KIWyBUK1PfRgAVXjFnP8Rj YgRJ7LTr3EQaH1QTW2vJIpSv8GRCS2DTdYFwVoNS8NVOw= ID Date Data Source [id number] 01/28/2020 06:01:10 PM EDT [facility] Name Value Range Interpretation Code Description Data Savi rce(s) Supporting Document(s) Discharge Summary [facility] CKERDh5jDnGFQzVx32/GQRtwREIuj5XhOXgoLSc9NQlxKWMoB2SjBOI3hP4vUOG7KIcHNmUdIbZzZHZp lbm [file] NgAjNr2YFJIYT8JYTo== ID Date Data Source [id number] 01/27/2020 06:08:37 AM EDT [facility] Name Value Range Interpretation Code Description Data Savi e(s) Supporting Document(s) Leukocytes [#/volume] in Blood by Automated count 9.6 10*3/uL 4-10 [facility] Erythrocytes [#/volume] in Blood by Automated count 4.35 10*6/uL 4.6- 6.1 L [facility] Hemoglobin [Mass/volume] in Blood 12.3 g/dL 13.5-18 L [facility] Hematocrit [Volume Fraction] of Blood by Automated count 37.1 % 4 1-53 L [facility] Erythrocyte mean corpuscular volume [Entitic volume] by Auto mated count 85.3 fL 80-96 [facility] Erythrocyte mean corpuscular hemoglobin [Entitic mass] by Automated count 28.4 pg 27-33 [facility] Erythrocyte mean corpuscular hemoglobin concentration [Mass/volume] by Automated count 33.3 g/dL 32.0-36.0 [facility] Erythrocyte distribution width [Ratio] by Automated count 15.5 % 11.5-14.5 H [facility] Platelets [#/volume] in Blood by Automated count 129 10*3/uL 150-400 L [facility] ID Date Data Source [id number] 01/27/2020 06:13:[address] [facility] Value Range Interpretation Code Description Data Savi rce(s) Supporting Document(s) Prothrombin time (PT) 13.7 s 12.5-14.9 [facility] INR in Platelet poor plasma by Coagulation assay 1.04 [facility] Routine intensity oral anticoagulation I NR is typically 2.0-3.0. Target INR must be clinically individualized. ID Date Data Source [id number] 01/27/2020 06:13:[address] [facility] Value Range Interpretation Code Description Data Savi rce(s) Supporting Document(s) Heparin unfractionated [Units/volume] in Platelet poor plasma by Chromogenic method 0.43 U/ml [facility] ID Date Data Source [id number] 01/27/2020 06:28:[address] [facility] Value Range Interpretation Code Description Data Savi rce(s) Supporting Document(s) Natriuretic peptide.B prohormone N-Terminal [Mass/volu me] in Serum or Plasma 1872 pg/mL <125 H [facility] ID Date Data Source [id number] 01/27/2020 06:28:[address] [facility] Value Range Interpretation Code Description Data Savi rce(s) Supporting Document(s) Bicarbonate [Moles/volume] in Serum 23 mmol/L 22-29 [facility] Chloride [Moles/volume] in Serum or Plasma 103 mmol/L 98-107 [facility] Creatinine [Mass/volume] in Serum or Plasma 1.21 mg/dL 0.70-1.20 H [facility] Glucose [Mass/volume] in Serum or Plasma 93 mg/dL 70-140 [facility] Potassium [Moles/volume] in Serum or Plasma 3.9 mmol/L 3.4-5.1 [facility] Sodium [Moles/volume] in Serum or Plasma 138 mmol/L 136-145 [facility] Urea nitrogen [Mass/volume] in Serum or Plasma 8 mg/dL 6-20 [facility] Anion gap 3 in Serum or Plasma 12 mmol/L 8-15 [facility] Osmolality of Serum or Plasma by calculation 284 mosm/kg 275-300 [facility] Creatinine/Urea nitrogen [Mass Ratio] in Serum or Plasma 7 [facility] Calcium [Mass/volume] in Serum or Plasma 8.5 mg/dL 8.6-10.0 L [facility] Glomerular filtration rate/1.73 sq M pre dicted among non-blacks [Volume Rate/Area] in Serum or Plasma by Creatinine-based formula (MDRD) 70 mL/min/1.73m2 >60 [facility] Glomerular filtration rate/1.73 sq M pre dicted among blacks [Volume Rate/Area] in Serum or Plasma by Creatinine-based formula (MDRD) 81 mL/min/1.73m2 >60 [facility] ID Date Data Source [id number] 01/26/2020 11:21:16 PM EDT [facility] Name Value Range Interpretation Code Description Data Savi rce(s) Supporting Document(s) Heparin unfractionated [Units/volume] in Platelet poor plasma by Chromogenic method 0.35 U/ml [facility] ID Date Data Source [id number] 01/26/2020 05:41:39 PM [facility] Name Value Range Interpretation Code Description Data Savi rce(s) Supporting Document(s) [facility] RXQEEn5cQeMHBqWd43/TKZdoLVDar7ScENjeIEc9MTdzBFSgI9KbLSQ5zV4nUQT1BPfTArIeYmFgDBL7 [facility] [file] WASikle6y9Gz9+fiber designer+aTl9w7rPOCPvc29o8AIpNf1EZ [file] [id number]5gVNHVXn7+OVvhcXNfmGykUZPEWaS1CMV6JYgqVLWAOx6P ID Date Data Source [id number] 01/26/2020 05:57:52 PM [facility] Name Value Range Interpretation Code Description Data Savi rce(s) Supporting Document(s) Heparin unfractionated [Units/volume] in Platelet poor plasma by Chromogenic method 0.52 [facility] Data Source [id number] 01/26/2020 11:46:[address] [facility] Value Range Interpretation Code Description Data Savi rce(s) Supporting Document(s) Heparin unfractionated [Units/volume] in Platelet poor plasma by Chromogenic method 0.14 [facility] Date Data Source [id number] 01/26/2020 03:50:[address] [facility] Value Range Interpretation Code Description Data Savi rce(s) Supporting Document(s) Leukocytes [#/volume] in Blood by Automated count 10.5 10*3/uL 4-10 H [facility] Erythrocytes [#/volume] in Blood by Automated count 4.37 10*6/uL 4.6- 6.1 L [facility] Hemoglobin [Mass/volume] in Blood 12.3 g/dL 13.5-18 L [facility] Hematocrit [Volume Fraction] of Blood by Automated count 37.2 % 4 1-53 L [facility] Erythrocyte mean corpuscular volume [Entitic volume] by Auto mated count 85.3 fL 80-96 [facility] Erythrocyte mean corpuscular hemoglobin [Entitic mass] by Automated count 28.2 pg 27-33 [facility] Erythrocyte mean corpuscular hemoglobin concentration [Mass/volume] by Automated count 33.0 g/dL 32.0-36.0 [facility] Erythrocyte distribution width [Ratio] by Automated count 15.4 % 11.5-14.5 H [facility] Platelets [#/volume] in Blood by Automated count 113 10*3/uL 150-400 L [facility] ID Date Data Source [id number] 01/26/2020 04:03:[address] [facility] Value Range Interpretation Code Description Data Savi rce(s) Supporting Document(s) Heparin unfractionated [Units/volume] in Platelet poor plasma by Chromogenic method 0.37 U[facility] Date Data Source [id number] 01/26/2020 04:03:44 AM [facility] Name Value Range Interpretation Code Description Data Savi rce(s) Supporting Document(s) Prothrombin time (PT) 14.3 s 12.5-14.9 [facility] INR in Platelet poor plasma by Coagulation assay 1.10 [facility] Routine intensity oral anticoagulation I NR is typically 2.0-3.0. Target INR must be clinically individualized. ID Date Data Source [id number] 01/26/2020 04:03:[address] [facility] Value Range Interpretation Code Description Data Savi rce(s) Supporting Document(s) Bicarbonate [Moles/volume] in Serum 21 mmol/L 22-29 L [facility] Chloride [Moles/volume] in Serum or Plasma 105 mmol/L 98-107 [facility] Creatinine [Mass/volume] in Serum or Plasma 1.21 mg/dL 0.70-1.20 H [facility] Glucose [Mass/volume] in Serum or Plasma 111 mg/dL 70-140 [facility] Potassium [Moles/volume] in Serum or Plasma 3.9 mmol/L 3.4-5.1 [facility] Sodium [Moles/volume] in Serum or Plasma 136 mmol/L 136-145 [facility] Urea nitrogen [Mass/volume] in Serum or Plasma 9 mg/dL 6-20 [facility] Anion gap 3 in Serum or Plasma 10 mmol/L 8-15 [facility] Osmolality of Serum or Plasma by calculation 282 mosm/kg 275-300 [facility] Creatinine/Urea nitrogen [Mass Ratio] in Serum or Plasma 8 [facility] Calcium [Mass/volume] in Serum or Plasma 8.2 mg/dL 8.6-10.0 L [facility] Glomerular filtration rate/1.73 sq M pre dicted among non-blacks [Volume Rate/Area] in Serum or Plasma by Creatinine-based formula (MDRD) 70 mL/min/1.73m2 >60 [facility] Glomerular filtration rate/1.73 sq M pre dicted among blacks [Volume Rate/Area] in Serum or Plasma by Creatinine-based formula (MDRD) 81 mL/min/1.73m2 >60 [facility] ID Date Data Source [id number] 01/25/2020 08:46:27 PM EDT [facility] Name Value Range Interpretation Code Description Data Savi rce(s) Supporting Document(s) Heparin unfractionated [Units/volume] in Platelet poor plasma by Chromogenic method [facility] Date Data Source [id number] 01/25/2020 03:04:44 PM EDT [facility] Name Value Range Interpretation Code Description Data Savi rce(s) Supporting Document(s) [facility] JTAZHu3qNyHYQhXk21/MLIvwIGCae6BmQUmiUXj5TNmgTYPkE0PgNFB9aJ5aIEU5YZkHDvFcAyDuHEC0 lbm [file] baUAAjFSOvGjVnJR0aLUPUNb0+EHgikTCqnOtiYPSAUhC6QtD2HBtoOEJXCm6J ID Date Data Source [id number] [facility] Name Value Range Interpretation Code Description Data Savi rce(s) Supporting Document(s) Heparin unfractionated [Units/volume] in Platelet poor plasma by Chromogenic method 0.29 U/ml [facility] ID Date Data Source [id number] 01/25/2020 05:26:[address] [facility] Value Range Interpretation Code Description Data Savi rce(s) Supporting Document(s) Leukocytes [#/volume] in Blood by Automated count 10.7 10*3/uL 4-10 H [facility] Erythrocytes [#/volume] in Blood by Automated count 4.40 10*6/uL 4.6- 6.1 L [facility] Hemoglobin [Mass/volume] in Blood 12.5 g/dL 13.5-18 L [facility] Hematocrit [Volume Fraction] of Blood by Automated count 37.9 % 4 1-53 L [facility] Erythrocyte mean corpuscular volume [Entitic volume] by Auto mated count 86.1 fL 80-96 [facility] Erythrocyte mean corpuscular hemoglobin [Entitic mass] by Automated count 28.5 pg 27-33 [facility] Erythrocyte mean corpuscular hemoglobin concentration [Mass/volume] by Automated count 33.0 g/dL 32.0-36.0 [facility] Erythrocyte distribution width [Ratio] by Automated count 15.4 % 11.5-14.5 H [facility] Platelets [#/volume] in Blood by Automated count 109 10*3/uL 150-400 L [facility] ID Date Data Source [id number] 01/25/2020 05:36:28 AM EDT [facility] Name Value Range Interpretation Code Description Data Savi rce(s) Supporting Document(s) Heparin unfractionated [Units/volume] in Platelet poor plasma by Chromogenic method 0.28 U/ml [facility] ID Date Data Source [id number] 01/25/2020 05:36:28 AM EDT [facility] Name Value Range Interpretation Code Description Data Savi rce(s) Supporting Document(s) Prothrombin time (PT) 14.5 s 12.5-14.9 [facility] INR in Platelet poor plasma by Coagulation assay 1.12 [facility] Routine intensity oral anticoagulation I NR is typically 2.0-3.0. Target INR must be clinically individualized. ID Date Data Source [id number] [facility] Code Description Data Savi rce(s) Supporting Document(s) Bicarbonate [Moles/volume] in Serum 25 mmol/L 22-29 [facility] Chloride [Moles/volume] in Serum or Plasma 103 mmol/L 98-107 [facility] Creatinine [Mass/volume] in Serum or Plasma 1.36 mg/dL 0.70-1.20 H [facility] Glucose [Mass/volume] in Serum or Plasma 106 mg/dL 70-140 [facility] Potassium [Moles/volume] in Serum or Plasma 4.3 mmol/L 3.4-5.1 [facility] Sodium [Moles/volume] in Serum or Plasma 137 mmol/L 136-145 [facility] Urea nitrogen [Mass/volume] in Serum or Plasma 13 mg/dL 6-20 [facility] Anion gap 3 in Serum or Plasma 9 mmol/L 8-15 [facility] Osmolality of Serum or Plasma by calculation 284 mosm/kg 275-300 [facility] Creatinine/Urea nitrogen [Mass Ratio] in Serum or Plasma 10 [facility] Calcium [Mass/volume] in Serum or Plasma 8.1 mg/dL 8.6-10.0 L [facility] Glomerular filtration rate/1.73 sq M pre dicted among non-blacks [Volume Rate/Area] in Serum or Plasma by Creatinine-based formula (MDRD) 61 mL/min/1.73m2 >60 [facility] Glomerular filtration rate/1.73 sq M pre dicted among blacks [Volume Rate/Area] in Serum or Plasma by Creatinine-based formula (MDRD) 70 mL/min/1.73m2 >60 [facility] ID Date Data Source [id number] [facility]2020 07[facility]53[facility] Interpretation Code Description Data Savi rce(s) Supporting Document(s) Natriuretic peptide.B prohormone N-Terminal [Mass/volu me] in Serum or Plasma 3004 pg/mL <125 H [facility] ID Date Data Source [id number] 01/24/2020 09:35:[address] [facility] Value Range Interpretation Code Description Data Savi rce(s) Supporting Document(s) Leukocytes [#/volume] in Blood by Automated count 11.2 10*3/uL 4-10 H [facility] Erythrocytes [#/volume] in Blood by Automated count 4.50 10*6/uL 4.6- 6.1 L [facility] Hemoglobin [Mass/volume] in Blood 12.9 g/dL 13.5-18 L [facility] Hematocrit [Volume Fraction] of Blood by Automated count 38.0 % 4 1-53 L [facility] Erythrocyte mean corpuscular volume [Entitic volume] by Auto mated count 84.5 fL 80-96 [facility] Erythrocyte mean corpuscular hemoglobin [Entitic mass] by Automated count 28.7 pg 27-33 [facility] Erythrocyte mean corpuscular hemoglobin concentration [Mass/volume] by Automated count 34.0 g/dL 32.0-36.0 [facility] Erythrocyte distribution width [Ratio] by Automated count 15.4 % 11.5-14.5 H [facility] Platelets [#/volume] in Blood by Automated count 108 10*3/uL 150-400 L [facility] ID Date Data Source [id number] 01/24/2020 09:56:[address] [facility] Value Range Interpretation Code Description Data Savi rce(s) Supporting Document(s) Heparin unfractionated [Units/volume] in Platelet poor plasma by Chromogenic method [facility] ID Date Data Source [id number] 01/24/2020 09:56:[address] [facility] Value Range Interpretation Code Description Data Savi rce(s) Supporting Document(s) Prothrombin time (PT) 14.9 s 12.5-14.9 [facility] INR in Platelet poor plasma by Coagulation assay 1.15 [facility] Routine intensity oral anticoagulation I NR is typically 2.0-3.0. Target INR must be clinically individualized. ID Date Data Source [id number] 01/24/2020 05:39:04 PM EDT [facility] Name Value Range Interpretation Code Description Data Savi rce(s) Supporting Document(s) History and Physical [facility] OAFYTm6zFfJLCbHt29/LYNriSVNlu0UgCGomBMs1LYinJZIcN0JoUGH0vS0lCAQ3LCwZKgNaAgIyWWR8 lbm [file] AgICAgICAgICAgICAgICAgICAgICAgICAgICAgICAg ICAgICAgICAgICAgICANCiAgICAgICAgICAgICAgICAgICAgICAgICAgICAgICAgICAgICAgICAgICAg ICAgICAgICAgICAgICAgICAgICAgICAgICAgICAgICAgICAgICAgICAgICAgICAgICAgICAgICANCiAg ICAgICAgICAgICAgICAgICAgICAgICAgICAgICAgIC AgICAgICAgICAgICAgICAgICAgICAgICAgICAgICAgICAgICAgICAgICAgICAgICAgICAgICAgICAgIC AgICAgICANCiAgICAgICAgICAgICAgICAgICAgICAgICAgICAgICAgICAgICAgICAgICAgICAgICAgIC AgICAgICAgICAgICAgICAgICAgICAgICAgICAgICAg ICAgICAgICAgICAgICAgICANCiAgICAgICAgICAgICAgICAgICAgICAgICAgICAgICAgICAgICAgICAg ICAgICAgICAgICAgICAgICAgICAgICAgICAgICAgICAgICAgICAgICAgICAgICAgICAgICAgICAgICAN CiAgICAgICAgICAgICAgICAgICAgICAgICAgICAgIC AgICAgICAgICAgICAgICAgICAgICAgICAgICAgICAgICAgICAgICAgICAgICAgICAgICAgICAgICAgIC AgICAgICAgICANCiAgICAgICAgICAgICAgICAgICAgICAgICAgICAgICAgICAgICAgICAgICAgICAgIC AgICAgICAgICAgICAgICAgICAgICAgICAgICAgICAg ICAgICAgICAgICAgICAgICAgICANCiAgICAgICAgICAgICAgICAgICAgICAgICAgICAgICAgICAgICAg ICAgICAgICAgICAgICAgICAgICAgICAgICAgICAgICAgICAgICAgICAgICAgICAgICAgICAgICAgICAg ICANCiAgICAgICAgICAgICAgICAgICAgICAgICAgIC AgICAgICAgICAgICAgICAgICAgICAgICAgICAgICAgICAgICAgICAgICAgICAgICAgICAgICAgICAgIC AgICAgICAgICAgICANCiAgICAgICAgICAgICAgICAgICAgICAgICAgICAgICAgICAgICAgICAgICAgIC AgICAgICAgICAgICAgICAgICAgICAgICAgICAgICAg ICAgICAgICAgICAgICAgICAgICAgICANCjw/qDDdD8hhvBGjapN3S1voPe9NYy8PJS2pn6BoNAWsIZrx wqDfTtmUGxYfLBTsVcmRBub2WTexKJ2EpGFpD3LzN8GhGMrgVJ9IZJKhHTQoiTJvRWCqWYUrFjE1CEMy XFsbFI3HhLEdRCnrTYGkKLGrCtXjKRLkSAQnEETnRY HqEQMZAYCgPVSuLvFvFCcpXZ6Pr0ShgJD8AEw+Eg2RJL0sh3WcAVjeFHWdQM4vvf7GPEwIYwRdH1Geaq P4PRNvXMEbYd8SIDZpKITvcVT6OYIxNVNJYrKiN6IplS78JXZNSo6+MRboxmHvQmjFJiOxLDFlm5FpKL f0LH0MKBAdURw7qKDuTLNFUQR3DCScxHCuZZEpJ8zg ddhiOAMeAOIkUL2jTc8hZTIzOJVqRqBiJFTPJV9ZUFFkDBXznVOmANCfTXRQIZ4UNRjoBWJ0ZJQqxyMx rWAzLAtyDO8HLAKyjaWgNqoiWZGVERx+Ol0ZMT9xu9SpODh5XWKbEB8kwx9AMWrMZtHkW0F9xNXsV6G0 XGhcAi3EQZFtQLQkRfkpVRQOAQkgYU6TGM8vpsX4MW 5JiLVzLBTeMICovBRlKVf7X45pvLLdZWlhJK6EFVK+Estefani+Ri2MNCUcMWYbYNGhNnQbUBLWSxFaM8YkD3 CZx0GpP9IhFB71hAjeoxMmRIbjVZ0UQJ2oSYNuIWWCSM5DoGBvvC7ggcYiKZDmBEOGSmRjI26oqMHgWK KxUPG2NWSqKh5CIDGpP8PgvpLplQtmkqYmULWjYRQG WJ3JAPisrgJwxTRpgPrtSK53bQpbRC6CFx4YCfKhOD0upa9OnSAmYr2NIMK2Cg7XBHSuCCCzIWXvCXF6 TOOqLfUbLVudCWJrHKVnCXX3AYTvJJTxRO1EJjRkZKIcAoHlZCfkVNSbICHpcj5CBOFqULYtOmw8TaBf UXTbYSKtPBoeLNHrSSKtPMM1GLCsKJChDZ7UZxZuPV OlTCL5DBadHAZnWNLjhd1UFNQwZSXgRqg5GUCnCZBlGHZdOKuxICQzLLA7NqE0PHOiORPuVM8TRmWfWV HnXKt3RdjbHGEfNNRpir6DGUTbNQRqUBg1AjHpVPJgSIRvPNqlUWEtFADsCElaRDZhVKGyDB3IMgXyCT AeIBHpZyEwHANmODMfgb4NIJUkIEWgRMChWTZxGEOr FUUmVNvzNAZpJWP3EJkpZEOnYCGbIP8JFvOdMRNvJHB0CRfmIOMpIOLkxa8TAVGwBOHpXuc5KFMmANPx EKQrNSobELEfBFK9EDM7PVVnCJXcAD6BYaPfMMMhXJxuViboMJXwHEJemz0OURToHODbHJS9RrOuAEXv CWEcMRcdZPKiQAV2Hym5PCKlPODiOB0GJlHlTHNuEC o4LPiePSZpKRVpar4YOZPaMPMoJVO6EtBpFWYwQGHbAMqoHNJfXEE2QsN3ULJxEONtYQ6UHpBuWAUmXH a0MtDmIDMuHRVvbh1KDDKmWVMwSBb6NyAuFLSyDUPfUWrwOIJeGGFoVOapBGJjWSOqJN4UXgGxKDNxWu AbKlOeKJPoLTGhvh4GQWHaSYQrBnHvCsYrRYCiPFYq IVlnHUGmJTPzVsQaRYToIMYtZQ6SXnAjNRKrMuC8BgBnZLSnTWSxej5CZIGiJWPsSgknDUJtBXAiCARc UBxuFOFvIMB9SjFyYNZnTOLeJJ9HMqZeAQNrEvW3UFQhSZZtYCKrbz0NYJJzPEKzBGL4VJUrOLMiBZFr TTwyUWIlYBT5BTN2LRXwNYGpPV0HHhGwGVPbRgA5Yg ZtNRZxNAKnve1WLEYyGOOpYNm2MODfSPGeDYHjBNdnIOJnBCJ9MJY4QPMbQFDuSE3OZbGyRSXqJbI3KC JrQMWaLCRhlk2CNFXmEGDdQFM7KlNuOKXjPBNeTGxbWDBiZTD7HQT7QZBmBMMpGF4QCqYaSERmCjtrRl DrBKIrSUByvi6QlINqlPlgpb9KWLpSBa6LnUmaAJCr OLlaRu8mpXV2AGZbXSLYZc4QmnUlCGRaBNNAHDryTNYfVMXwXvDmBgI2DMU0FzMoSLxvXyNoUUOyBOjv JRXdHZV6YjG0KgUhMVGqUgq1BAH5XYO6HJVdJ6L8NiAdLKOsXvW5BfS+ST6mIYb+Gn0Qw6GiqiD0wkIf AXzfUXVhGe0UVJUVR7EIGg== ID Date Data Source [id number] 01/24/2020 02:12:14 PM EDT [facility] Name Value Range Interpretation Code Description Data Savi rce(s) Supporting Document(s) Heparin unfractionated [Units/volume] in Platelet poor plasma by Chromogenic method [facility] ID Date Data Source [id number] 01/24/2020 08:45:18 AM EDT [facility] Name Value Range Interpretation Code Description Data Savi rce(s) Supporting Document(s) [facility] UOHDSx1oKtIGOwSdp0SgXxNyNCBhLA6lflq6C2U4uRBwS6MkaVFcc3gmB6NbC7OgBWBsCYVVER2ElMIm jb2 [file] //tRI1o34H+hxg2N3cKe1xz5506T/eu3627F39/NU3f+Zn9xx8/+gz92035Zxj6y8zy707//GrL97+/u 2/v/vx/sakC824t+8/jEZgm4by46/78vs/839pz/+/ //C3Z84615tqE+4/y3566hjckMvx9omJN//jTtB1//V37d21N9/2Y049R5P7/9uvP7z/5jrpQp46/fL7 t3c/sekt87b//Pr9n/qERgokM55slk/8y+/+9Puf/vntn/4c6jswmi796SmO3958/jur45i8238ijry6 q/dfv/2yO2o7n965++Ge7dbW0p/YT3F+9r5w2xd40/ wXi+/Ao/3M7fe//8W/8dJrSsFyveDf/jn1mckdzSD713n/F+D+QomG8ThC8wqVHXMlXi8pm89kEOI93E kJr619OOlQ9+uLV4d+f82svU3y5c1Mb9/+5ac//Roy1AP0rw++f70kb//tV+++/aSl7ZO/lJF/ef8nzf oxbfe3SW5q/aERc9sZsuxWFktgpKqeMY/+9Id//5u3 P/3m33/65OyvKfItEubcP/r8y4GWCmZDj217Q/76w9vv/vDvP/3pf//mX//M6P72Ie096IwtKB+fn/1g f//h+7d//o/Xvf/uj3/4+ey4nzhwlM4E5OL///EXf//vg3nQ49NnqXxzdKz6J8c/XHkURHod0D1/vt0A yOm2xuXbjO9/v6uD/ucsO663zIcB//np3/7rm/M8N/ MCqi6mx8/f8IWds6/723/+6R//6me/Ps/hm9/46whVj61PwhHl//jtb/7td7/5w8/+deve2Zp/+Pn/n/ dw+L/+03/542ACS5/84+8//+JxbzPP7s21s11+/snUsDfRRLmBG//402//5x9+99vX/X3+JveWyvGz3+ 7SHvHbf/q2O9m6697//f6/Xm/Tun4n35882b84N7// nDPWPQ3+/39yf/Jamar+eA++vf/I+f3uTtj//abkjst0TLW4P7be1/DRUvpvv+y4+vEeMeEN/Dp8376yDP 7z+8GtWb3+CJ0lc3L2743gycJ501zuW1ck7Ld10l/t5NUJ0KHbLkSZK4riPupBmbhwUbEakTRCwvZJPa Kjx1JD6IaESwQBKmJ8X6QZBlra6lABUjQCJlrIHfKy PrWYPSVS6YrFExWD0SSFb9PTLrUVDrGeMlYLEmmvA7HWYuKZJdRVHlG8WhhxHjcBTbUBHiIo9+ZW5kb2 KaLlUtLTJhQxg3LJ1CiFGzHE1FqGQiiO9slzRjB167gcKrYGTyWwbfi0NvHSsiLSHKEB3TUGK5SMI4WL AgUj4+WU0ay8KrOdFxLYLcGni9FG0SzHXzx3OqXL1X I6KdLQHbNSOMFDC2z8MmAMFmrgyuuudlU6QjXFG7dH9hRSJ8PWJkWFxlSEZhPYLbUuX9FIWfTUjwRLLq SVNdGAZuLSBgBNq2eBYoDS1MQ4MiGKFdNCLOYXUasyFhAk4zKNWVNFMVYZHDOIWLPsRXMLAsWRW6VdE0 ERCyN3LzkdJqgWFhULBQWNctFsboIUZduX4vaWuxM1 BuCDN1a7FeKS9JP7OwTLMhZIXBNOB2c7CmJGZmkmsggqncVfThXFQwJBHnMHKvMA4Mzl9xbHUqefDkVZ EWGVpmTdwtTW2nuWfkjcveX4DxkICiFFR+UlEaPY2gbc9+ZsBhKLRdYyy0KMDtWTwvPNZhSMEhHHDaG4 yxNQEuQxYsWTAwXzRyVC5Yx9PlkSFtZg3zpqNuJrjP hDEwWdndCEXdYVUjTUUhNfMGGZYdYBPwFSRiFSN0YCFhFHHcSThwFWIuFIE0MMqaHIQvDLDyYW3pMjZq ZRVhFfFrPAuxUSMoXYAfhiBVPPHhQYR4RUObTiCmSYSkHKNcJYpcYNUyMUAnQVXeXPC3EYV9HSFkMtZt EBWlGJIgRHEeUEEbUCIzuwTCIUNoDLXoTWW1WEUeNS UjFHZaJYbkDVPaJLLiSZcbRNVxSNAlJW0hYzDjSFVvPEAtBGtjMUFfLIEkviGVHCPeZLEiXYWyBYChPH LyOMUcFQjkABUwJKDmUDVwWMKqFSYmHG1dFpAwEWGiSOU4GVWlBHXjKGYnrxZALBUuQQGwRKw6CFIzTJ MrAXGlFImvQVXhQEUtASC6GRHxBDExFU1qCjCeCBZz CVI3YgIeDCMaAWYkckWFLKVcEOLwWPO1LbVcYHDsMAXeNMjxGSJiFZNbBTrrKAQnWXYeQH4wXeYeYAUg KHUdSQfcJTGpDJOgnuXRXNHiVGAaWJNvLuHbYDWxQJCgZBatWYEuJUO6PIA1YBDjSAVmTL6jHiEfWPIz TIQ4MNshEKDhGIXlufTYUOThZJNrQNrxHPOpFKXpJB CrBEvuTRBnTLScYTS1KQHfBUShKV9iZbBlDOXgKUWdAUHbFrH4ZcVeQpFYqEUbtUtptig8KAscO4t9TI SzPVzzQM3swgNuLMOuAlulZg8xxHX4HMIpPfwRPt8Ul1AbdtV8ccGnIdL1JZM5LuIrKQ8I ID Date Data Source [id number] 01/24/2020 06:59:29 AM EDT [facility] Name Value Range Interpretation Code Description Data Savi rce(s) Supporting Document(s) Consultation [facility] MTIXGx1uKjXBChNa48/TJFvpXPOwv1HqEXgjDDa7QSyxPPQqS3LfNUX0yZ9rQXM3DNhPTcRfGvUcRZV2 lbm [file] AgICAgICAgICAgICAgICAgICAgICAgICAgICAgICAgICAgICAgICAgICAgICANCiAgICAgICAgICAgIC AgICAgICAgICAgICAgICAgICAgICAgICAgICAgICAg ICAgICAgICAgICAgICAgICAgICAgICAgICAgICAgICAgICAgICAgICAgICAgICAgICAgICAgICANCiAg ICAgICAgICAgICAgICAgICAgICAgICAgICAgICAgICAgICAgICAgICAgICAgICAgICAgICAgICAgICAg ICAgICAgICAgICAgICAgICAgICAgICAgICAgICAgIC AgICAgICANCiAgICAgICAgICAgICAgICAgICAgICAgICAgICAgICAgICAgICAgICAgICAgICAgICAgIC AgICAgICAgICAgICAgICAgICAgICAgICAgICAgICAgICAgICAgICAgICAgICAgICANCiAgICAgICAgIC AgICAgICAgICAgICAgICAgICAgICAgICAgICAgICAg ICAgICAgICAgICAgICAgICAgICAgICAgICAgICAgICAgICAgICAgICAgICAgICAgICAgICAgICAgICAN CiAgICAgICAgICAgICAgICAgICAgICAgICAgICAgICAgICAgICAgICAgICAgICAgICAgICAgICAgICAg ICAgICAgICAgICAgICAgICAgICAgICAgICAgICAgIC AgICAgICAgICANCiAgICAgICAgICAgICAgICAgICAgICAgICAgICAgICAgICAgICAgICAgICAgICAgIC AgICAgICAgICAgICAgICAgICAgICAgICAgICAgICAgICAgICAgICAgICAgICAgICAgICANCiAgICAgIC AgICAgICAgICAgICAgICAgICAgICAgICAgICAgICAg ICAgICAgICAgICAgICAgICAgICAgICAgICAgICAgICAgICAgICAgICAgICAgICAgICAgICAgICAgICAg ICANCiAgICAgICAgICAgICAgICAgICAgICAgICAgICAgICAgICAgICAgICAgICAgICAgICAgICAgICAg ICAgICAgICAgICAgICAgICAgICAgICAgICAgICAgIC AgICAgICAgICAgICANCiAgICAgICAgICAgICAgICAgICAgICAgICAgICAgICAgICAgICAgICAgICAgIC AgICAgICAgICAgICAgICAgICAgICAgICAgICAgICAgICAgICAgICAgICAgICAgICAgICAgICANCjw/eH JyK1ftyETwvwD2H7deIc3WCb3CHH9ez6GbXPThNAfo wkOmVclJQbEmUZGlZvqSMui0SEsoBF2JlOYcK6UpQ3YvZEvlOM8ISADmKLQodGDpJEUtIFYkRqF8ZNTp YXprEV2JyQAiDOzzFSCmKOMvTrQoXXNxOKMhTEFmLALlDDQNCH7CWmWkK9UloI28OFVGHu5+DQplbmRv XqnHTfC9HJCnp5UaRFc6LV1KGZPkBwbzu0ZhUqEzHS ICPHxoRW0PJFJ1QOL6DJRsZw0GULEtN210yoItIR4UUr3IMsIxBY4xut8IFiIbWMCtGamXKyn0LHblJG 0IuEWkWMnOc32hsFv2itWmtURUZVLdv5krIRVueQYcZOBANlLIXJI3LYUyLncnZcSuZHPhKObhSPMTIQ hXYbPmI4Vvn4VyQgH5NGEqNyLqSXytNUNlVuQ4BF79 rUwxFI9CLGTvPTNhLA70UXN9FGTfTn3UAz4ZXmWhUZ9nhq5QHtUdEWVrLdgTLga8CVpiLJ2TsZXhL6Nj lRWga8eKTgMxZ0VYBIZjAVGxLv8FONTyYnOgVSLoPQfbPS2uXIVePZEXqTmikgB5EQ8TZJ3qvqFmFL0O PdPeCt5kHi0PTsYpF7MaT7RbMAMoBXPYHDefVD2UXK dkUY5sDC9Gx4SQjHGgxJ3aye1RETSxMNJwBgtqfq2ULvifV4P3bQjvHKClGhKmWHEJDSxpJM6BEWMcBX V2AAJlCgWhFZWPWiBeS23qVQ0OF3Tlj74vWrI0OVHdPjVkIXzeCN56dYxrvjMkrYBadIblBZ0YWv1+DQ plbmRvYmoNCnhyZWYNCjAgMzcNCjAwMDAwMDAwMDAg ZbU7GjOmWh7HEWZyBHVdMJTtXwIaMXPoVEGyPNelFKNyQBM2MuSeEKExRBAoZA0QYiYwNEUvNjS2KDnm VRLhJQZzzv2JRWTnQWYcIPY4KuSeBYOeWFRiEOfvSZWoWNXcXFJgWBYcRNScDU0OMsFuXODsIOAuXoMw HFPwBAZpxi7FGWUiHTVjSnVbGCYyPOTvWQKlYVifOZ MrDJF6QFA6IAAyBNBtUY8FArEqAVVcWAq9BRJtFODnJNZpbu6ITNUzGLBzOWl5BFLuZZIuNRAlKIupTK RiBXGqSVO1KHGaFAVyOX7FVrUhQVSaBXE5YDEcIJEcLFAjev9LFACaPWTfWYdgSKDbPHIsFCYxDTckBD JlYHGyINUwYTVkOLOqUH2ZUnEpOVDvUIThLIXdKQYt XQUpkw3MZZYoPMBqBdV0XMWfSMIkOUAgGEnaFRXbEORgEnW8BJDhVMFhMV7TFzVoVRTnORV8PyXfVLLn XJBkla6YRCYbYEIsJKE4FtBePNXoOAJhJApcFOWoSFK2WGq1UIAwHBTwVL1NWwCrBVJxHPZ9KGGsJLDj ANNjom6LKTWnXXXjSGt3LdStKPGoXISyDOesEDCiYQ Q2TJJnPDUnBYJrHG5JDgYbADPlHOZkHqIdMQWkTMDgmu8WLQZbTHPpJbKeSRKgZNJxDSCuEQqzONEvNU R5YEX9QFDwCERsVX6OHuFtWHHrIpzfDdDrJOVfQROylk2CCDXfPIIfDLH8ENAfCKMgKLRqQAdzZIWjCO X3MTSsZZIpSMSfRU9DZrJaUYMmKkyaCfWmNYIxAVGr ut7JQHOoUXOeTGR2RzPrKSLvCVVbZRohMOZvDKD3GvUoASFiYNSuUS4RKeAaCYJxVyPtMnyyBATdHJSa xq9VQNZaNHOpQAVcAoStXZCjWBJpQEbmKARmFYPnSwJ2GJUlVRIkKP0NFfLgGDJkUuM8VELoIVWdDJGi ou1BmGYlnHiong2WJWgEJx5ByFwnWMT8TKtgOj4baQ LrFtIpZUOMOg2VatVzBJVqCHHVAJvtXDHeXKDvJAQpWdB1JRDzXoAyDXx8JorlUeQnVIHvLIS3QWOfTh X1PMUgJbXoJEN5XdOeONQ1AyUkL7LqNETjN8CsPiriKqV+GW3qZQe+Xe6Or9DegpN8rmOcOTvfJrS5RF 1JNERNI5GYNs== ID Date Data Source [id number] 01/24/2020 06:05:29 AM EDT [facility] Name Value Range Interpretation Code Description Data Savi rce(s) Supporting Document(s) Leukocytes [#/volume] in Blood by Automated count 13.1 10*3/uL 4-10 H [facility] Erythrocytes [#/volume] in Blood by Automated count 5.28 10*6/uL 4.6- 6.1 [facility] Hemoglobin [Mass/volume] in Blood 14.7 g/dL 13.5-18 [facility] Hematocrit [Volume Fraction] of Blood by Automated count 45.0 % 4 1-53 [facility] Erythrocyte mean corpuscular volume [Entitic volume] by Auto mated count 85.2 fL 80-96 [facility] Erythrocyte mean corpuscular hemoglobin [Entitic mass] by Automated count 27.9 pg 27-33 [facility] Erythrocyte mean corpuscular hemoglobin concentration [Mass/volume] by Automated count 32.7 g/dL 32.0-36.0 [facility] distribution width [Ratio] by Automated count 15.5 % 11.5-14.5 H [facility] Platelets [#/volume] in Blood by Automated count 117 10*3/uL 150-400 L [facility] Differential cell count method - Blood [facility] Neutrophils/100 leukocytes in Blood by Automated count 61 % [facility] Lymphocytes/100 leukocytes in Blood by Automated count 28 % [facility] Monocytes/100 leukocytes in Blood by Automated count 7 % [facility] Eosinophils/100 leukocytes in Blood by Automated count 3 % [facility] Basophils/100 leukocytes in Blood by Automated count 1 % [facility] Neutrophils [#/volume] in Blood by Automated count 8.07 10*3/uL 1.8-7 .0 H [facility] Lymphocytes [#/volume] in Blood by Automated count 3.68 10*3/uL 1.2-4 .0 [facility] Monocytes [#/volume] in Blood by Automated count 0.85 10*3/uL 0-0.8 H [facility] Eosinophils [#/volume] in Blood by Automated count 0.40 10*3/uL 0-0.5 [facility] Basophils [#/volume] in Blood by Automated count 0.10 10*3/uL 0-0.2 [facility] Nucleated erythrocytes/100 leukocytes [Ratio] in Blood by Automated count 0 /100{WBCs} 0-0 [facility] ID Date Data Source [id number] 01/24/2020 06:14:04 AM [facility] Name Value Range Interpretation Code Description Data Savi rce(s) Supporting Document(s) Heparin unfractionated [Units/volume] in Platelet poor plasma by Chromogenic method [facility] ID Date Data Source [id number] 01/24/2020 06:23:[address] [facility] Value Range Interpretation Code Description Data Savi rce(s) Supporting Document(s) Albumin [Mass/volume] in Serum or Plasma by Bromocresol green (BCG) dye binding method 3.4 g/dL 3.5-5.2 L [facility] Bilirubin.total [Mass/volume] in Serum or Plasma 0.9 mg/dL <1.2 [facility] Calcium [Mass/volume] in Serum or Plasma 8.6 mg/dL 8.6-10.0 [facility] Chloride [Moles/volume] in Serum or Plasma 102 mmol/L 98-107 [facility] Creatinine [Mass/volume] in Serum or Plasma 1.53 mg/dL 0.70-1.20 H [facility] Glucose [Mass/volume] in Serum or Plasma 116 mg/dL 70-140 [facility] Alkaline phosphatase [Enzymatic activity/volume] in Serum or Plasma 79 U/L 40-129 [facility] Potassium [Moles/volume] in Serum or Plasma 4.3 mmol/L 3.4-5.1 [facility] Protein [Mass/volume] in Serum or Plasma 7.2 g/dL 6.4-8.3 [facility] Sodium [Moles/volume] in Serum or Plasma 136 mmol/L 136-145 [facility] Aspartate aminotransferase [Enzymatic activity/volume] in Serum or Plasma 17 U/L <40 [facility] Urea nitrogen [Mass/volume] in Serum or Plasma 15 mg/dL 6-20 [facility] Osmolality of Serum or Plasma by calculation 284 mosm/kg 275-300 [facility] Creatinine/Urea nitrogen [Mass Ratio] in Serum or Plasma 10 [facility] Bicarbonate [Moles/volume] in Serum 22 mmol/L 22-29 [facility] Alanine aminotransferase [Enzymatic activity/volume] in Seru m or Plasma 16 U/L <41 [facility] Anion gap 3 in Serum or Plasma 12 mmol/L 8-15 [facility] Albumin/Globulin [Mass Ratio] in Serum or Plasma 0.9 [facility] Glomerular filtration rate/1.73 sq M pre dicted among non-blacks [Volume Rate/Area] in Serum or Plasma by Creatinine-based formula (MDRD) 53 mL/min/1.73m2 >60 L [facility] Glomerular filtration rate/1.73 sq M pre dicted among blacks [Volume Rate/Area] in Serum or Plasma by Creatinine-based formula (MDRD) 61 mL/min/1.73m2 >60 [facility] ID Date Data Source [id number] 01/24/2020 06:23:04 AM [facility] Name Value Range Interpretation Code Description Data Savi rce(s) Supporting Document(s) Magnesium [Mass/volume] in Serum or Plasma 2.0 mg/dL 1.6-2.6 [facility] ID Date Data Source [id number] 01/24/2020 06:23:04 AM [facility] Name Value Range Interpretation Code Description Data Savi rce(s) Supporting Document(s) Phosphate [Mass/volume] in Serum or Plasma 3.7 mg/dL 2.5-4.5 [facility] ID Date Data Source [id number] 01/24/2020 06:23:04 AM [facility] Name Value Range Interpretation Code Description Data Savi rce(s) Supporting Document(s) Troponin T.cardiac [Mass/volume] in Serum or Plasma 0.03 ng/mL <0.01 H [facility] ID Date Data Source [id number] 01/24/2020 12:02:46 AM [facility] Service Cmnt XXX-Imp : NoneMicroorganism XXX Cult : 2019 nCoV Real-Time RT-PCR: NOT DETECTEDTest performed using the Qvanteq Xpert Xpress SARS-CoV-2 assay. This test is only for use under the Food and Drug Administration's Emergency Use Authorization. Additional information is available on the following FDA websites for health care providers and patients. https://www.fda.gov/media/899952/download , https://www.fda.gov/media/206700/download Name Value Range Interpretation Code Description Data Savi rce(s) Supporting Document(s) ID Date Data Source [id number] 01/23/2020 10:41:00 PM [facility] Cmnt XXX-Imp : NoneMicroorganism XXX Cult : 2019 nCoV Real-Time RT-PCR: NOT DETECTEDTest performed using the CepYoovi Xpert Xpress SARS-CoV-2 assay. This test is only for use under the Food and Drug Administration's Emergency Use Authorization. Additional information is available on the following FDA websites for health care providers and patients. https://www.fda.gov/media/752666/download , https://www.fda.gov/media/285361/download Name Value Range Interpretation Code Description Data Savi rce(s) Supporting Document(s) Microorganism identified in Unspecified specimen by [facility] This lab was ordered by [facility] and reported by [facility]. ID Date Data Source [id number] 01/24/2020 12:00:03 AM [facility] Name Value Range Interpretation Code Description Data Savi rce(s) Supporting Document(s) Leukocytes [#/volume] in Blood by Automated count 15.1 10*3/uL 4-10 H [facility] Erythrocytes [#/volume] in Blood by Automated count 4.98 10*6/uL 4.6- 6.1 [facility] Hemoglobin [Mass/volume] in Blood 14.3 g/dL 13.5-18 [facility] Hematocrit [Volume Fraction] of Blood by Automated count 42.3 % 4 1-53 [facility] Erythrocyte mean corpuscular volume [Entitic volume] by Auto mated count 84.9 fL 80-96 [facility] Erythrocyte mean corpuscular hemoglobin [Entitic mass] by Automated count 28.7 pg 27-33 [facility] Erythrocyte mean corpuscular hemoglobin concentration [Mass/volume] by Automated count 33.8 g/dL 32.0-36.0 [facility] Erythrocyte distribution width [Ratio] by Automated count 15.4 % 11.5-14.5 H [facility] Platelets [#/volume] in Blood by Automated count 124 10*3/uL 150-400 L [facility] Differential cell count method - Blood [facility] Neutrophils/100 leukocytes in Blood by Automated count 66 % [facility] Lymphocytes/100 leukocytes in Blood by Automated count 25 % [facility] Monocytes/100 leukocytes in Blood by Automated count 5 % [facility] Eosinophils/100 leukocytes in Blood by Automated count 3 % [facility] Basophils/100 leukocytes in Blood by Automated count 1 % [facility] Neutrophils [#/volume] in Blood by Automated count 9.96 10*3/uL 1.8-7 .0 H [facility] Lymphocytes [#/volume] in Blood by Automated count 3.85 10*3/uL 1.2-4 .0 [facility] Monocytes [#/volume] in Blood by Automated count 0.80 10*3/uL 0-0.8 [facility] Eosinophils [#/volume] in Blood by Automated count 0.43 10*3/uL 0-0.5 [facility] Basophils [#/volume] in Blood by Automated count 0.09 10*3/uL 0-0.2 [facility] Nucleated erythrocytes/100 leukocytes [Ratio] in Blood by Automated count 0 /100{WBCs} 0-0 [facility] ID Date Data Source [id number] 01/23/2020 10:27:27 PM EDT [facility] Name Value Range Interpretation Code Description Data Savi rce(s) Supporting Document(s) Troponin I.cardiac [Mass/volume] in Blood 0.08 ng/mL 0.00-0.08 [facility] ID Date Data Source [id number] 01/23/2020 10:32:07 PM [facility] Name Value Range Interpretation Code Description Data Savi rce(s) Supporting Document(s) Leukocytes [#/volume] in Blood by Automated count 4-10 [facility] CALLED TO YOGESH PRADHAN RN EER 2227 BY 3650 Erythrocytes [#/volume] in Blood by Automated count 4.6-6. 1 [facility] Hemoglobin [Mass/volume] in Blood 13.5-18 [facility] Hematocrit [Volume Fraction] of Blood by Automated count 4 1-53 [facility] Erythrocyte mean corpuscular volume [Entitic volume] by Automate d count 80-96 [facility] Erythrocyte mean corpuscular hemoglobin [Entitic mass] by Au tomated count 27-33 [facility] Erythrocyte mean corpuscular hemoglobin concentration [Mass/volume] by Automated count 32.0-36.0 [facility] Erythrocyte distribution width [Ratio] by Automated count 11.5-14.5 [facility] Platelets [#/volume] in Blood by Automated count 150-400 [facility] Sample quality of Dried blood spot [facility] Differential cell count method - Blood [facility] ID Date Data Source [id number] 01/23/2020 10:44:[address] [facility] Value Range Interpretation Code Description Data Savi rce(s) Supporting Document(s) Heparin unfractionated [Units/volume] in Platelet poor plasma by Chromogenic method 0.80 U/ml [facility] al ID Date Data Source 01/23/2020 10:55:12 PM [facility] Name Value Range Interpretation Code Description Data Savi rce(s) Supporting Document(s) Bicarbonate [Moles/volume] in Serum 25 mmol/L 22-29 [facility] Chloride [Moles/volume] in Serum or Plasma 102 mmol/L 98-107 [facility] Creatinine [Mass/volume] in Serum or Plasma 1.50 mg/dL 0.70-1.20 H [facility] Glucose [Mass/volume] in Serum or Plasma 110 mg/dL 70-140 [facility] Potassium [Moles/volume] in Serum or Plasma 4.3 mmol/L 3.4-5.1 [facility] Sodium [Moles/volume] in Serum or Plasma 139 mmol/L 136-145 [facility] Urea nitrogen [Mass/volume] in Serum or Plasma 15 mg/dL 6-20 [facility] Anion gap 3 in Serum or Plasma 12 mmol/L 8-15 [facility] Osmolality of Serum or Plasma by calculation 289 mosm/kg 275-300 [facility] Creatinine/Urea nitrogen [Mass Ratio] in Serum or Plasma 10 [facility] Calcium [Mass/volume] in Serum or Plasma 8.4 mg/dL 8.6-10.0 L [facility] Glomerular filtration rate/1.73 sq M pre dicted among non-blacks [Volume Rate/Area] in Serum or Plasma by Creatinine-based formula (MDRD) 54 mL/min/1.73m2 >60 L [facility] Glomerular filtration rate/1.73 sq M pre dicted among blacks [Volume Rate/Area] in Serum or Plasma by Creatinine-based formula (MDRD) 62 mL/min/1.73m2 >60 [facility] ID Date Data Source [id number] 01/15/2020 02:06:57 PM EDT [facility] Measurements & CalculationsHeight: 74 [...] Race: White Ethnicity: Not or Preferred Language: EnglishMonBeijing 100e and Tiny Pictures In the past year, have you or [...] medications as well.Was getting some relief from Thida 5 mg but this is less effective than it used to be.No adverse effects from Thida.HPI performed by: John Martinez MD, January 15, 2020 2:57 PMTransitions of Care InboundProblem ReviewProblem List was reviewed and/or updated during this visit.Medication Reconciliation & ReviewMedication List was reviewed and/or updated during this visit, including review of any qyvh-ahk-rwwugne medications, herbal therapies, and/or supplements.Allergy ReviewAllergy List [...] & Plan Problems:Assessed:Pain in right hip (ICD-719.45) (DLU05-A08.551) Assessment: Instructions: Fair but lessening control.Temporarly increase the Thida from 5 mg to 7.5 mg.The ultimate answer is weight loss (through bariatric surgery) and Ortho surgery although this is delayed by the pandemic.Recheck one month, sooner as needed.Patient Instructions/Care Plan: Pain in right hip: Fair but lessening control.Temporarly increase the Thida from 5 mg to 7.5 mg.The ultimate [...] John Martinez MD Method used: Electronically to [facility] (retail) [address] [place] [address] Note to Pharmacy: Route: ORAL; RxID: [id number] signed by John Martinez MD on 01/15/2020 at 3:18 PM Name Value Range Interpretation Code Description Data Savi rce(s) Supporting Document(s) ID Date Data Source [id number] 11/20/2019 01:34:12 PM EDT [facility] Measurements & CalculationsWeight: 470 pounds 213.64 kg Vital Signs performed by: Miguel Tafoya MA, November 20, 2019 1:35 PMAssessment & Plan Orders:[id number] Vst-Est Level I [CPT-36225] Labs In-House Name Value Range Interpretation Code Description Data Savi rce(s) Supporting Document(s) ID Date Data Source [id number] 11/10/2019 08:47:59 AM EDT [facility] Measurements & CalculationsHeight: 74 [...] Problems:Added: Ex-smoker (ICD-V15.82) (ICD10- Z87.891)Ankle edema (ICD-719.07) (BCW71-B07.0)Assessed:Obesity, unspecified (MDA24-G14.9) Assessment: for by pass surgeryAssessment not SavedEx-smoker (JXM83-U47.891): Medication Changes:New Prescription:EQL NICOTINE POLACRILEX 2 MG MOUTH/THROAT LOZENGE-one lozenge slowly dissolved in mouth q2h prn Qty: 150[Lozenge] Refills: 1 Method: ElectronicOrders:Adult - Ofc Vst, EST, Level III [CPT-93924] COMP METABOLIC PANEL [CPT-50519] CBC W/DIFF [CPT-67305] HgBA1c [CPT-71401] LIPID PANEL [CPT-13721] TSH [CPT-59797] Vitamin D 250H Unspecified [CPT-83226] Medications:EQL NICOTINE POLACRILEX 2 MG MOUTH/THROAT LOZENGE (NI COTINE POLACRILEX) one lozenge slowly dissolved in mouth q2h prn #150[Lozenge] x 1 Route:MOUTH/THROAT Entered and Authorized by: Candelario Casillas DO Method used: Electronically to [facility] (retail) [address] [place] [address] Note to Pharmacy: Route: MOUTH/THROAT; RxID: [id number]] Name Value Range Interpretation Code Description Data Savi rce(s) Supporting Document(s) ID Date Data Source [id number] 11/08/2019 09:58:45 AM EDT [facility] [place], [place] [address]Mmd# Surgical Pathology ReportAccession #:[id number](s) ReceivedA: Antrum bxs, r/o H. pyloriClinical Diagnosis and HistoryEsophageal reflux DIAGNOSISSTOMACH, ANTRUM, BIOPSY: MILD CHRONIC GASTRITIS. NEGATIVE FOR HELICOBACTER PYLORI BY IMMUNOSTAIN. Gross DescriptionReceived in formalin labeled "antrum biopsies rule out H. pylori" are twotan-pink irregular fragments of tissue measuring 0.3 and 0.7 cm. Entirelysubmitted as A1. 1 + 1. Processed at [facility], Histopathology, [address], [place], [address].jgllmr/jjf Reported: 11/08/2019Electronically Signed Out By Aston Rojas MD [facility] This report may include immunohistochemical or in-situ hybridizationresults. Testing was developed and the performance characteristicsdetermined by [facility] as required by CLIA '88. The FDAhas determined that approval for specific use is not necessary forclinical use. The quality of Hematoxylin and Eosin stains and asapplicable, for all immunohistochemical and/or special stains, in cludingpositive and negative controls, were reviewed and considered appropriate.ICD codes K21.9 K29.30CPT codesA: 33337K, 43137k Name Value Range Interpretation Code Description Data Savi rce(s) Supporting Document(s) ID Date Data Source [id number] 11/06/2019 09:31:43 AM EDT [facility] INFORMATIONPatient MRN Name Date of Age Gend*PT [id number] Wei Rothman 1970 49 years M OPPT Location Admission Date/Time Visit ID [facility]19 0725 --- Himanshu Guerrier MD([id number]) EPI ID CSN Admitting Provider [id number] Himanshu Guerrier MD([id number])Endoscopic Gastroduodenoscopy Procedure NotePatient: Wei BryansukhjinderSurgery Date: November [...] Name Value Range Interpretation Code Description Data [facility](s) Supporting Document(s) ID Date Data Source [id number] 11/06/2019 08:47:46 AM EDT [facility] INFORMATIONPatient MRN Name Date of Age Gend*PT [id number] Wei Rothman 1970 49 years M OPPT Location Admission Date/Time Visit ID [facility] 11/06/19 0725 --- Himanshu Guerrier MD([id number]) EPI ID CSN Admitting Provider [id number] Himanshu Guerrier MD([id number])H&P reviewed. The patient was examined and there are no changes to the H&P.Himanshu Guerrier MD8:47 AM Name Value Range Interpretation Code Description Data Savi dina(s) Supporting Document(s) ID Date Data Source [id number] 11/06/2019 08:47:41 AM EDT [facility] NT INFORMATIONPatient MRN Name Date of Age Gend*PT [id number] Wei Rothman 1970 49 years M OPPT Location Admission Date/Time [facility] 0725 --- Himanshu Guerrier MD([id number]) EPI ID CSN Admitting Provider [id number] Himanshu Guerrier MD([id number])Pre-Procedure History and Physical:Past Medical History:Diagnosis Date Arthritis [...] rce(s) Supporting Document(s) ID Date Data Source [id number] 10/31/2019 10:21:01 AM EST [facility] Labs In-House Blood TestsDate/Time Colle cted: October 31, 2019 8:20 AMTest Result Reference Range Normal ValueComments: blood draw done in office, taken from left hand, tolerated well.Emely Schmitt, October 31, 2019 10:21 AMAssessment & Plan Orders:[id number] Vst-Est Level I [CPT-80772] [id number] - Venipuncture [CPT-50961] Name Value Range Interpretation Code Description Data Savi rce(s) Supporting Document(s) ID Date Data Source [id number] 10/31/2019 08:20:00 AM EST [facility] [facility] Name Value Range Interpretation Code Description Data Savi rce(s) Supporting Document(s) BG FASTING 206 mg/dL 70-100 H [facility] Health ID Date Data Source [id number] 10/31/2019 08:20:00 AM EST [facility] Name Value Range Interpretation Code Description Data Savi rce(s) Supporting Document(s) HGBA1C 6.1 % N [facility] ID Date Data Source [id number] 10/20/2019 01:09:31 PM EST [facility] Measurements & CalculationsWeight: 454 pounds 7 oz. 206.56 kg Vital Signs performed by: Miguel Tafoya MA, October 20, 2019 1:21 PMAssessment & Plan Orders:[id number] Vst-Est Level I [[id number]] Name Value Range Interpretation Code Description Data Savi rce(s) Supporting Document(s) ID Date Data Source [id number] 09/20/2019 08:33:41 PM EST [facility] Name Value Range Interpretation Code Description Data Savi rce(s) Supporting Document(s) HEMOGLOBIN A1C @ 5.6 % (4.0-6.0) [facility] Performed using Siemens [place] immunoassa y.Care must be taken when interpreting [id number] in patients with a hemoglobin variantor decreased erythrocyte lifespan. Values 5.7 - 6.4% suggest prediabetes.Values >=6.5% are diagnostic for diabetes.REFERENCE: DIABETES CARE 2018: 41(S13-S27). EST AVERAGE GLUCOSE 114 mg/dL Laboratory [facility] ID Date Data Source [id number] 09/20/2019 08:01:07 PM EST Laboratory [facility] Name Value Range Interpretation Code Description Data Savi rce(s) Supporting Document(s) TSH,ULTRASENSITIVE @ 4.670 mIU/L (0.360-4.170) H Laboratory Post [facility] [place] Procedure Social History Code Duration Value Status Description Data Source(s ) 05/14/2020 12:00:00 AM EDT Patient is a current smoker, smokes every day completed Patient is a current smoker, smokes every day [facility] ( [facility]) Alcohol intake 01/24/2020 12:00:00 AM EDT Ex-drinker (finding) comp leted Ex- drinker (finding) [facility] Smoking 01/24/2020 12:00:00 AM EDT Current some day smoker com pleted Current some day smoker [facility] Alcohol intake 11/06/2019 12:00:00 AM EDT Never completed Smoking 11/06/2019 12:00:00 AM EDT Current some day smoker com pleted Current some day smoker Vital Signs ID Date Data Source UNK Name Value Range Interpretation Code Description Data Source(s) Body weight 8018 [oz_av] 8018 [oz_av] [facility] ([facility]) Systolic blood pressure 119 mm[Hg] 119 mm[Hg] [facility] Body mass index (BMI) [Ratio] 64.3 kg/m2 64.3 k g/m2 [facility] ([facility]) Body height 74 [in_i] 74 [in_i] [facility] ([facility]) Diastolic blood pressure 76 mm[Hg] 76 mm[Hg] [facility] ([facility]) Body surface area Derived from formula 3.14 m2 3.14 m2 [facility]) Body weight 220.903 kg 220.903 kg [facility] ([facility]) Gore body weight 184 [lb_av] 184 [lb_av] MEDEN T ([facility]) Body mass index (BMI) [Ratio] 64.2 kg/m2 64.2 k g/m2 [facility] ([facility]) Body weight 487.00 [lb_av] 487.00 [lb_av] [facility] T ([facility]) PT States Body height 73 [in_i] 73 [in_i] [facility]) 6'1" Body temperature 96.8 [degF] 96.8 [degF] [facility] ([facility]) Oxygen saturation in Arterial blood by Pulse oximetry 97 % 97 % [facility] ([facility]) Heart rate 122 /min 122 /min [facility] ([facility]) Diastolic blood pressure 80 mm[Hg] 80 mm[Hg] [facility]) Systolic blood pressure 130 mm[Hg] 130 mm[Hg] [facility] Body weight 7472 [oz_av] 7472 [oz_av] [facility] ([facility]) Systolic blood pressure 111 mm[Hg] 111 mm[Hg] A THENA ([facility]) Body mass index (BMI) [Ratio] 60 kg/m2 60 kg/ m2 [facility] ([facility]) Body height 74 [in_i] 74 [in_i] [facility] ([facility]) Diastolic blood pressure 61 mm[Hg] 61 mm[Hg] [facility] ([facility]) Body weight 7472 [oz_av] 7472 [oz_av] [facility] ([facility]) Systolic blood pressure 111 mm[Hg] 111 mm[Hg] A [facility] ([facility]) Body mass index (BMI) [Ratio] 60 kg/m2 60 kg/ m2 [facility] ([facility]) Body height 74 [in_i] 74 [in_i] [facility] ([facility]) Diastolic blood pressure 61 mm[Hg] 61 mm[Hg] [facility] ([facility]) Body weight 7472 [oz_av] 7472 [oz_av] [facility] ([facility]) Systolic blood pressure 130 mm[Hg] 130 mm[Hg] A [facility] ([facility]) Body mass index (BMI) [Ratio] 60 kg/m2 60 kg/ m2 [facility] ([facility]) Body height 74 [in_i] 74 [in_i] [facility] ([facility]) Diastolic blood pressure 84 mm[Hg] 84 mm[Hg] [facility] ([facility]) Body weight 7472 [oz_av] 7472 [oz_av] [facility] ([facility]) Systolic blood pressure 130 mm[Hg] 130 mm[Hg] A [facility] ([facility]) Body mass index (BMI) [Ratio] 60 kg/m2 60 kg/ m2 [facility] ([facility]) Body height 74 [in_i] 74 [in_i] [facility] ([facility]) Diastolic blood pressure 84 mm[Hg] 84 mm[Hg] [facility] ([facility]) Body weight 7472 [oz_av] 7472 [oz_av] [facility] ([facility]) Systolic blood pressure 130 mm[Hg] 130 mm[Hg] A [facility] ([facility]) Body mass index (BMI) [Ratio] 60 kg/m2 60 kg/ m2 [facility] ([facility]) Body height 74 [in_i] 74 [in_i] [facility] ([facility]) Diastolic blood pressure 84 mm[Hg] 84 mm[Hg] [facility] ([facility]) Body surface area Derived from formula 3.14 m2 3.14 m2 [facility] ([facility]) Body weight 221.073 kg 221.073 kg [facility] ([facility]) Gore body weight 184 [lb_av] 184 [lb_av] [facility] ([facility]) Body mass index (BMI) [Ratio] 64.3 kg/m2 64.3 k g/m2 [facility] ([facility]) Body weight 487.38 [lb_av] 487.38 [lb_av] [facility] Body height 73 [in_i] 73 [in_i] [facility] ([facility]) 6'1" Body temperature 96.8 [degF] 96.8 [degF] [facility] ([facility]) Oxygen saturation in Arterial blood by Pulse oximetry 97 % 97 % [facility] ([facility]) Heart rate 102 /min 102 /min [facility] ([facility]) Diastolic blood pressure 88 mm[Hg] 88 mm[Hg] [facility] ([facility]) Systolic blood pressure 142 mm[Hg] 142 mm[Hg] [facility] Body weight 7394.08 [oz_av] 7394.08 [oz_av] [facility] ([facility]) Systolic blood pressure 103 mm[Hg] 103 mm[Hg] A [facility] ([facility]) Body height 74 [in_i] 74 [in_i] [facility] ([facility]) Diastolic blood pressure 71 mm[Hg] 71 mm[Hg] [facility] ([facility]) Body weight 7394.08 [oz_av] 7394.08 [oz_av] [facility] ([facility]) Systolic blood pressure 103 mm[Hg] 103 mm[Hg] [facility] Body height 74 [in_i] 74 [in_i] [facility] ([facility]) Diastolic blood pressure 71 mm[Hg] 71 mm[Hg] [facility] ([facility]) Body weight 7394.08 [oz_av] 7394.08 [oz_av] [facility] ([facility]) Systolic blood pressure 103 mm[Hg] 103 mm[Hg] A [facility] Body height 74 [in_i] 74 [in_i] [facility] ([facility]) Diastolic blood pressure 71 mm[Hg] 71 mm[Hg] [facility] ([facility]) Body weight 7478.4 [oz_av] 7478.4 [oz_av] ATHEN A ([facility]) Systolic blood pressure 121 mm[Hg] 121 mm[Hg] A [facility] Body height 74 [in_i] 74 [in_i] [facility] ([facility]) Diastolic blood pressure 77 mm[Hg] 77 mm[Hg] [facility] ([facility]) Body weight 7478.4 [oz_av] 7478.4 [oz_av] ATHEN A ([facility]) Systolic blood pressure 121 mm[Hg] 121 mm[Hg] A [facility] Body height 74 [in_i] 74 [in_i] [facility] ([facility]) Diastolic blood pressure 77 mm[Hg] 77 mm[Hg] [facility] ([facility]) Body weight 7478.4 [oz_av] 7478.4 [oz_av] ATHEN A ([facility]) Systolic blood pressure 121 mm[Hg] 121 mm[Hg] [facility] Body height 74 [in_i] 74 [in_i] [facility] ([facility]) Diastolic blood pressure 77 mm[Hg] 77 mm[Hg] [facility] ([facility]) Body weight 7465.6 [oz_av] 7465.6 [oz_av] ATHEN A ([facility]) Systolic blood pressure 120 mm[Hg] 120 mm[Hg] [facility] Body height 74 [in_i] 74 [in_i] [facility] ([facility]) Diastolic blood pressure 84 mm[Hg] 84 mm[Hg] [facility] ([facility]) Body weight 7465.6 [oz_av] 7465.6 [oz_av] ATHEN A ([facility]) Systolic blood pressure 120 mm[Hg] 120 mm[Hg] A [facility] ([facility]) Body height 74 [in_i] 74 [in_i] [facility] ([facility]) Diastolic blood pressure 84 mm[Hg] 84 mm[Hg] [facility] ([facility]) Body weight 7465.6 [oz_av] 7465.6 [oz_av] ATHEN A ([facility]) Systolic blood pressure 120 mm[Hg] 120 mm[Hg] A [facility] ([facility]) Body height 74 [in_i] 74 [in_i] [facility] ([facility]) Diastolic blood pressure 84 mm[Hg] 84 mm[Hg] [facility] ([facility]) Body weight 7520 [oz_av] 7520 [oz_av] [facility] ([facility]) Body weight 7520 [oz_av] 7520 [oz_av] [facility] ([facility]) Body weight 7520 [oz_av] 7520 [oz_av] [facility] ([facility]) Body weight 7508 [oz_av] 7508 [oz_av] [facility] ([facility]) Systolic blood pressure 144 mm[Hg] 144 mm[Hg] A [facility] ([facility]) Body height 74 [in_i] 74 [in_i] [facility] ([facility]) Diastolic blood pressure 78 mm[Hg] 78 mm[Hg] [facility] ([facility]) Body weight 7508 [oz_av] 7508 [oz_av] [facility] ([facility]) Systolic blood pressure 144 mm[Hg] 144 mm[Hg] A [facility] ([facility]) Body height 74 [in_i] 74 [in_i] [facility] ([facility]) Diastolic blood pressure 78 mm[Hg] 78 mm[Hg] [facility] ([facility]) Body weight 7508 [oz_av] 7508 [oz_av] [facility] ([facility]) Systolic blood pressure 144 mm[Hg] 144 mm[Hg] A THENA ([facility]) Body height 74 [in_i] 74 [in_i] [facility] ([facility]) Diastolic blood pressure 78 mm[Hg] 78 mm[Hg] [facility] ([facility]) Oxygen saturation in Arterial blood by Pulse oximetry 95 % 95 % Body temperature 36.[address] [facility] Heart rate 73 /min 73 /min [facility] Diastolic blood pressure 71 mm[Hg] 71 mm[Hg] Systolic blood pressure 102 mm[Hg] 102 mm[Hg] [facility] Respiratory rate 16 /min 16 /min [facility] Body mass index (BMI) [Ratio] 52.77 kg/m2 52.77 kg/m2 Body weight 181.439 kg 181.439 kg Body height 185.4 cm 185.4 cm Body weight 7271.04 [oz_av] 7271.04 [oz_av] [facility] ([facility]) Body weight 7271.04 [oz_av] 7271.04 [oz_av] [facility] ([facility]) Body weight 7271.04 [oz_av] 7271.04 [oz_av] [facility] ([facility]) ID Date Data Source [id number] 01/31/2020 11:10:09 AM EDT [facility] Name Value Range Interpretation Code Description Data Source(s) WEIGHT RECORDED 460.2 lb 460.2 lb [facility] Body height Measured 73 in 73 in [facility] Patient Treatment Plan of Care Planned Activity Planned Date Details Description Data Source (s) Levothyroxine 02/20/2020 01:00:00 AM EDT [facility] ([facility]) Tylenol 02/20/2020 01:00:00 AM EDT N [facility] ([facility]) Nicotine Mini 2 MG 02/20/2020 01:00[facility] Eliquis 5 MG 02/20/2020 01:00:00 AM EDT N [facility] ([facility]) apixaban 5 MG Oral Tablet 02/07/2020 12:00:00 AM [facility] apixaban 5 MG Oral Tablet 02/03/2020 12:00:00 AM [facility] Eliquis 5 MG 01/30/2020 01:00:00 AM EDT N [facility] ([facility]) Lortab 5-325 MG 01/30/2020 01:00:00 AM EDT [facility] ([facility]) Omeprazole 40 MG 01/30/2020 01:00:00 AM EDT [facility]) Colace 01/30/2020 01:00:00 AM EDT REPLACED BY [facility] ([facility]) apixaban 5 MG Oral Tablet 01/27/2020 09:00:00 PM [facility] Acetaminophen 325 MG / Hydrocodone Bitartrate 5 MG Ora l Tablet 01/27/2020 01:06:12 PM [facility]ital apixaban 5 MG Oral Tablet 01/27/2020 12:00:00 AM [facility] apixaban 5 MG Oral Tablet 01/27/2020 12:00:00 AM [facility] Acetaminophen 325 MG / Hydrocodone Bitartrate 5 MG Ora l Tablet 01/27/2020 12:00:00 AM [facility] apixaban 5 MG Oral Tablet 01/27/2020 12:00:00 AM [facility] apixaban 5 MG Oral Tablet 01/27/2020 12:00:00 AM [facility] Acetaminophen 325 MG / Hydrocodone Bitartrate 5 MG Ora l Tablet 01/27/2020 12:00:00 AM [facility] apixaban 5 MG Oral Tablet 01/27/2020 12:00:00 AM [facility] apixaban 5 MG Oral Tablet 01/27/2020 12:00:00 AM [facility] apixaban 5 MG Oral Tablet 01/27/2020 12:00:00 AM [facility] Omeprazole 40 MG Delayed Release Oral Capsule 12/22/2019 12:00:00 A M EDT [facility] Acetaminophen 325 MG / Hydrocodone Bitartrate 5 MG Ora l Tablet 12/21/2019 12:00:00 AM [facility] Furosemide 40 MG Oral Tablet [facility] ([facility]) Doxycycline Monohydrate 100 MG Oral Capsule [facility] ([facility])
[2020-10-23 04:09] LABS: PERCENT SATURATION 8.8 % (19.7-50.0); PHOSPHORUS LEVEL 1.8 MG/DL (2.5-4.9)
[2020-10-23 04:25] LABS: HEMOGLOBIN A1c 8.3 %
[2020-10-23 04:57] LABS: RSV AMPLIFICATION NEGATIVE (NEGATIVE)
[2020-10-23 05:21] LABS: HEMATOCRIT 38.4 % (42.0-52.0); HEMOGLOBIN 11.6 g/dl (13.5-17.5); MEAN CORPUSCULAR HEMOGLOBIN 26.7 pg (27.0-33.0); MEAN CORPUSCULAR HGB CONC 30.2 g/dl (32.0-36.5); MEAN CORPUSCULAR VOLUME 88.3 fl (80.0-96.0); PLATELET COUNT, AUTOMATED 164 10^3/uL (150-450); RED BLOOD COUNT 4.35 10^6/uL (4.30-6.10); WHITE BLOOD COUNT 15.2 10^3/uL (4.0-10.0)
[2020-10-23 05:50] LABS: CREATININE FOR GFR 1.73 MG/DL (0.70-1.30); GLOMERULAR FILTRATION RATE 45.1 (>60); POTASSIUM SERUM 3.8 MEQ/L (3.5-5.1)
[2020-10-23] MEDS ORDERED: ALBUTEROL 90 MCG/ACT 8GM HFA INHALER INH PRN (06:45)
--- NOTE | 2020-10-23 06:47 | HPEPDOC ---
[facility] Medical History & Physical Date of Admission Oct 23, 2020 Date of Service: Oct 23, 2020 Primary Care Physician: Boston Fernandez M.D. Attending Physician: PAUL BOWMAN MD History and Physical TIME OF SERVICE: 435am CHIEF COMPLAINT: groin pain HISTORY OF PRESENT ILLNESS: This 50 yr old presented w c/o severe groin pain for several weeks that was associated with episodes of hot flushes. He also has raw skin on his buttocks. He denied having fevers, chills nausea or vomiting. Today he came to the hospital because he couldnt stand the pain. 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 FAMILY HISTORY: His mother in a MVA ALLERGIES: Please see below. HOME MEDICATIONS: Please see below. PHYSICAL EXAMINATION: Vital Signs Date Time Temp Pulse Resp B/P (MAP) Pulse Ox O2 Delivery O2 Flow Rate FiO2 10/23/20 01:15 109 24 128/60 95 Room Air GENERAL APPEARANCE: well nourished & developed /doesn't appear toxic HEENT: EOMI CARDIOVASCULAR: RRR/NMRG LUNGS: CTAB on RA ABDOMEN: obese MUSCULOSKELETAL: ENEDINA x 4 INTEGUMENT: + rubor, dalor and calor of the skin surrounding the lower abdomen and upper thighs / he has a large pannus and several skin folds obscuring his groin NEUROLOGICAL: CN 1-12 intact / speech not dysarthric PSYCHIATRIC: A&O x 3 / able to understand and follow all commands LABORATORY DATA: 10/23/20 01:29 10/23/20 05:05 Neutrophils (%) (Auto) , Nucleated Red Blood Cells % (auto) 0.0, Neutrophils 84H, Lymphocytes (Manual) 10L, Monocytes (Manual) 5, Atypical Lymphocytes 1, Anisocytosis 1+, Platelet Estimate NORMAL, Erythrocyte Sedimentation Rate 79H, Urine Color LEYDI, Urine Appearance CLOUDYH, Urine pH 5.0, Urine Specific [place] 1.028, Urine Protein 2+H, Urine Glucose (UA) 1+H, Urine Ketones NEGATIVE, Urine Blood 2+H, Urine Nitrite NEGATIVE, Urine Bilirubin 1+H, Urine Urobilinogen 4.0H, Urine Leukocyte Esterase NEGATIVE, Urine WBC (Auto) 5H, Urine RBC (Auto) 63H, Urine Hyaline Casts (Auto) 1, Urine Bacteria (Auto) NEGATIVE, Urine Squamous Epithelial Cells 1, Urine Amorphous Sediment SMALLH, Urine Mucus (Auto) SMALL, Urine Sperm (Auto) , Anion Gap 11, Glomerular Filtration Rate 44.2L, Estimated Mean Plasma Glucose 192H, Hemoglobin A1c 8.3, Calcium Level 8.0L, Phosphorus Level 1.8L, Iron Level 15L, Total Iron Binding Capacity 171L, Transferrin % Saturation 8.8L, Ferritin 261, Total Bilirubin 0.9, Direct Bilirubin 0.4H, Aspartate Amino Transf (AST/SGOT) 15, Alanine Aminotransferase (ALT/SGPT) 14, Alkaline Phosphatase 58, C-Reactive Protein, Quantitative 35.90H, Total Protein 6.0L, Albumin 1.8L, Albumin/Globulin Ratio 0.4, Lipase 45L 10/23/20 03:51: Lactic Acid Level 5.1*H 10/23/20 03:59: Coronavirus (COVID-19)(PCR) NEGATIVE, Influenza Type A (RT-PCR) NEGATIVE, Influenza Type B (RT-PCR) NEGATIVE, Respiratory Syncytial Virus (PCR) NEGATIVE 10/23/20 05:05: Nucleated Red Blood Cells % (auto) 0.0, Anion Gap 10, Glomerular Filtration Rate 45.1L, Calcium Level 8.0L IMAGING: n/a MICROBIOLOGY: Respiratory panel neg Blood cx pending... ASSESSMENT: is a 50 yr old w a hx of UE DVT, ARJUN, Obesity and GERD who presented w c/o severe groin pain for several weeks and will be admitted for sepsis 2/2 lower abdominal and groin panniculitis/cellulitis. PLAN: 1 Sepsis 2/2 lower abdominal and groin panniculitis/cellulitis SIRS criteria: HR 112 / WBC 14.4 / RR > 24 Lactic acid 5 qSOFA score = 1 = not high risk Plan: admit to ICU / telemetry / lactate ringers /f/u blood cx / c/w Ceftaroline & add Vancomycin / Acetaminophen PRN for fever / target MAP at of least 65 to 70 / f/u Is and Os with target UOP of at least 0.5 ml/kg/H / f/u [id number] w target serum glucose 140-180 while acutely ill / because I was not able to adequately visualize his groin I will order a CT of the abdomen and pelvis to r/o abscess, tracts and Fourniers 2. VINEET Likely pre-renal Plan: monitor UOP / IVF / f/u renal panel, CK, Ulytes for FENa or FEUrea / renal US / hold nephrotoxic drugs 3. NN Anemia Plan; f/u iron studies and stool occult 4. GERD PPI 5 Hx of UE DVT Xarelto 6 ARJUN CPAP 10 7 Tobacco Abuse Smoking cessation education / nicotine patch 8 Class 3 obesity BMI 72.7 complicates care f/u A1C / the patient can f/u w his or her PCP for sleep apnea screening, clinical trial coordinator consult, to discuss staring Saxenda, which is indicated in patients with a BMI >27 with co-existing DM, HTN or dyslipidemia to help with weight control as an adjunct to exercise & referral to a Bariatric Surgeon / recommend cardiovascular exercise for 40 min 4-5 days a week DVT n/a on Xarelto Dispo: home after at least 2 midnights stay Home Medications Scheduled Apixaban (Eliquis) 5 Mg Tablet, 5 MG PO BID Furosemide (Lasix) 20 Mg Tablet, 20 MG PO DAILY Hydrocodone/Acetaminophen (Hydrocodone-Acetamin 7.5-325) 1 Each Tablet, 1 TAB PO Q6H Omeprazole (Omeprazole) 40 Mg Capsule.dr, 40 MG PO QHS Scheduled PRN Albuterol Sulfate (Proair Hfa) 8.5 Gm Hfa.aer.ad, 2 PUFF INH Q4H PRN for SHORTNESS OF BREATH Allergies Coded Allergies: carisoprodol (Verified Allergy, Intermediate, rash, 01/23/20) A-FIB/CHADSVASC A-FIB History Current/History of A-Fib/PAF?: No Current PO Anticoag Therapy: No PAUL BOWMAN MD Oct 23, 2020 06:47
[2020-10-23] MEDS ORDERED: VANCOMYCIN HCL 1,000 MG, VIAL MATE ADAPTER 1 EACH in D5W 250 ML IV ONE ×2 (07:00→10:00)
[2020-10-23] MEDS ORDERED: VANCOMYCIN HCL 1,000 MG, VIAL MATE ADAPTER 1 EACH in D5W 250 ML IV SCH (07:00)
[2020-10-23] MEDS: ACETAMINOPHEN TAB 650MG DOSE (2X325MG) PO PRN (08:02)
[2020-10-23 08:31] LABS: FOLATE 12.3 NG/ML (>5.4)
[2020-10-23] MEDS ORDERED: APIXABAN 5 MG TAB (ELIQUIS) PO SCH (09:00)
[2020-10-23] MEDS ORDERED: FUROSEMIDE 20 MG TAB PO SCH (09:00)
[2020-10-23] MEDS ORDERED: DEXTROSE 50% 50 ML SYRINGE IV PRN (09:30)
[2020-10-23] MEDS ORDERED: GLUCOSE 4GM CHEW TABLET PO PRN (09:30)
[2020-10-23] MEDS ORDERED: GLUCAGON INJ 1MG VIAL SC PRN (09:30)
--- NOTE | 2020-10-23 09:56 | REP ---
INDICATION: abdominal, groin upper thigh pain /r/o abcess . COMPARISON: None. TECHNIQUE: Noncontrast images a throughout the abdomen and pelvis and extending below to encompass more of the pannus which extends along the upper thighs. Patient's body habitus as the patient is in contact with the scanner shroud, limiting field of view. A large ring detector artifact is noted because of the patient's size. This also significantly limits the examination. FINDINGS: CT abdomen: Lung bases were clear. There is hepatomegaly with the liver showing a 24 cm vertical diameter in the mid clavicular line. Fatty infiltration is suggested. No focal hepatic mass or biliary dilatation is seen. The gallbladder shows no gross calcified stone or mass but is difficult to evaluate likewise pancreas grossly unremarkable. The right adrenal gland cannot be seen due to the ring detector artifact. Left adrenal gland grossly normal kidneys without gross hydronephrosis there is 1 small nonobstructing stone interpolar region of the right kidney about 5 mm. The no gross hydronephrosis or hydroureter. Small bowel loops and colon in the abdomen proper grossly intact. Lung window review review fall abdominal CT slices shows no perforation or free air no gross ascites. The bone windows show some degenerative disc changes greatest in the lower thoracic spine without acute compression deformity or destructive lesions. Visualized ribs grossly intact. CT pelvis: There is a prior left hip ORIF with 3 screws which do not extend beyond the articular surface of the left hip. Degenerative changes of both hips. Pelvis without fracture or focal lesion. The bony sacrum shows some sacralization transverse process of L5 on the right with no focal lesion There is subcutaneous emphysema involving the right proximal thigh, into the groin and medially towards the perineum and right buttock. There is also some subcutaneous emphysema extending into the scrotum on the right. Soft tissue density adjacent to the emphysematous infiltration of the fat and the adjacent skin may reflect abscess and/or phlegmonous change. I do not see any left-sided findings. IMPRESSION: Toby's gas gangrene involving right scrotum, inguinal region extending towards the perineum/buttock and upwards toward the flank. There is subcutaneous abscess under phlegmon. Imaging is very limited due to extreme body habitus, ring detector artifact and patient contact with the CT scanner shroud limiting [id number]. I see no other significant acute finding. <Electronically signed by Joni Argueta > 10/23/20 [id number]
[2020-10-23 11:00] VITALS: BP 116/57
[2020-10-23] MEDS ORDERED: cefTRIAXone SOD 2 GM in D5W MINI-BAG PLUS 50 ML IV SCH (11:00)
[2020-10-23] MEDS: NS 1,000 ML IV SCH ×2 (11:07→14:15)
[2020-10-23] MEDS: ANEXSIA, NORCO 7.5MG/325MG TABLET(HYDROCODONE/APAP) PO SCH ×2 (11:11→16:56)
[2020-10-23] MEDS ORDERED: MORPHINE 2 MG/ML 1ML VIAL (J2270) IV PRN (11:25)
[2020-10-23] MEDS ORDERED: IMIPENEM/CILASTATIN 1,000 MG in D5W MINI-BAG PLUS 100 ML IV SCH (11:25)
[2020-10-23] MEDS ORDERED: HumaLOG INSULIN (NovoLOG) PER UNIT SC SCH ×2 (12:00→21:00)
[2020-10-23] MEDS ORDERED: KETOROLAC 30 MG/ML 1ML VIAL IV PRN (12:20)
--- NOTE | 2020-10-23 12:43 | CR.PDOC ---
General Surgery Consultation Date of Consultation 10/23/20 History and Physical CONSULT REPORT FOR: Dr. Varghese (hospitalist service) REASON FOR CONSULTATION: necrotizing soft tissue infection (Toby's gangrene) on the right groin HISTORY OF PRESENT ILLNESS: I was asked to see and evaluate Mr. Cordoba was admitted early this morning w ith complaints of right groin pain of 2 weeks' duration with diagnosis of panniculitis, acute kidney injury. Patient came in the emergency room about 1 this morning with complaints of right groin pain. He was a bit cryptic on how long this has been going on but he roughly estimates about 2 weeks. He was seen actually on the though he could not recall is having pain at that time. That time he was complaining of leg swelling. When asked if he is able to ambulate he tells me he does ambulate with a walker but has been mainly sedentary for the past couple of days has been having problems ambulating due to the pain in his groin and his buttock area. It a mildly elevated white count, lactic acidosis as well as a highly elevated C-reactive protein at 35.9 on his laboratories. Also low sodium at 134 and elevated BUN and creatinine. He had a CT scan of the abdomen and pelvis that was done at 8:00 in the morning which is highly suspicious for necrotizing soft tissue infection involving the right groin extending towards the perineum, buttocks, scrotal area. I was then asked to come and evaluate the patient. The time that I saw him patient was at the [facility] floor. During his stay in the emergency room was also noted to be mildly hypotensive but was responsive to IV fluid hydration. He is on Xarelto for prior history of upper extremity DVT. Last intake was yesterday evening. He denies diabetes. PAST MEDICAL HISTORY: 1. GERD 2. History of upper extremity DVT. 3. Obstructive sleep apnea on CPAP 4. Morbid obesity with a BMI of 72.7 5. Arthritis PAST SURGICAL HISTORY: INCLUDES: 1. Left hip pinning ALLERGIES: Please see below. FAMILY HISTORY: noncontributory HOME MEDICATIONS: Please see below. REVIEW OF SYSTEMS: GENERAL: His symptoms went to the patient was well week old. Reports low-grade fever at home starting yesterday. HEENT: Denies blurred vision and double vision. Denies ear symptoms. Denies hoarseness. NECK: Denies any neck pain CARDIOVASCULAR: Denies chest pain and palpitations. SKIN: See HPI. NEUROLOGIC: Denies headache, stroke and transient ischemic attack. PSYCHIATRIC: Denies anxiety and depression. ENDOCRINE: Denies thyroid disease. HEMATOLOGY/ONCOLOGY: Denies bleeding or clotting disorder. HEART: Denies any chest pains, palpitations, paroxysmal dyspnea, orthopnea. PULMONARY: Denies chronic cough, dyspnea and wheezing. GASTROINTESTINAL: Denies rectal bleeding, family history of colon cancer, constipation, diarrhea, dysphagia, heartburn and jaundice. GENITOURINARY: Denies dysuria, frequency, hematuria and nocturia. ENDOCRINE: Denies polydipsia, polyphagia, polyuria, heat or cold intolerance. INFECTIOUS: Denies any recent upper respiratory tract infection, UTI, need for use of antibiotics. NUTRITION: Reports good appetite. PHYSICAL EXAMINATION: VITALS SIGNS: Please see below. GENERAL APPEARANCE:Patient seen, laying in bed, awake, alert, and oriented. Comfortable, in no acute distress. SKIN: Warm and moist. HEENT: Normocephalic, atraumatic. [place] palpebral conjunctiva, anicteric sclerae. Lips and mucosa appear moist. NECK: Supple, no thyromegaly. No obvious jugular venous distention. LUNGS: Clear to auscultation bilaterally. No wheezing appreciated. HEART: No chest wall abnormalities. Regular rate and rhythm with no murmurs appreciated. ABDOMEN: Abdomen is markedly protuberant with a large draping pannus to the mid thigh area. Also large midline suprapubic panniculus/mons pubis. There is a wide area of erythema over the lower abdomen and right groin and right thigh area with some necrotic skin and foul-smelling brownish drainage from the midportion of the wound at the right groin area. Tender to palpation. Boggy soft tissue surrounding the erythema. Erythema extends to the mid thigh area ANCILLARIES: . LABORATORY DATA: Please see below. IMAGING STUDIES: CT Scan abdomen and pelvis Toby's gas gangrene involving right scrotum, inguinal region extending towards the perineum/buttock and upwards toward the flank. There is subcutaneous abscess under phlegmon. Imaging is very limited due to extreme body habitus, ring detector artifact and patient contact with the CT scanner shroud limiting [id number]. I see no other significant acute finding. 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 Blood pressure was soft. Attempts at oshea catheter at the beside was not successful. Will bring to the OR for debridement of the wound and drainage of abscess. Vital Signs Vital Signs Date Time Temp Pulse Resp B/P (MAP) Pulse Ox O2 Delivery O2 Flow Rate FiO2 10/23/20 11:11 18 Room Air 10/23/20 08:31 100.5 108 95/50 (65) 94 Laboratory Data Labs 24H Laboratory Tests 2 10/23/20 01:29: Neutrophils (%) (Auto) , Nucleated Red Blood Cells % (auto) 0.0, Neutrophils 84H, Lymphocytes (Manual) 10L, Monocytes (Manual) 5, Atypical Lymphocytes 1, Anisocytosis 1+, Platelet Estimate NORMAL, Erythrocyte Sedimentation Rate 79H, Urine Color LEYDI, Urine Appearance CLOUDYH, Urine pH 5.0, Urine Specific [place] 1.028, Urine Protein 2+H, Urine Glucose (UA) 1+H, Urine Ketones NEGATIVE, Urine Blood 2+H, Urine Nitrite NEGATIVE, Urine Bilirubin 1+H, Urine Urobilinogen 4.0H, Urine Leukocyte Esterase NEGATIVE, Urine WBC (Auto) 5H, Urine RBC (Auto) 63H, Urine Hyaline Casts (Auto) 1, Urine Bacteria (Auto) NEGATIVE, Urine Squamous Epithelial Cells 1, Urine Amorphous Sediment SMALLH, Urine Mucus (Auto) SMALL, Urine Sperm (Auto) , Anion Gap 11, Glomerular Filtration Rate 44.2L, Estimated Mean Plasma Glucose 192H, Hemoglobin A1c 8.3, Calcium Level 8.0L, Phosphorus Level 1.8L, Iron Level 15L, Total Iron Binding Capacity 171L, Transferrin % Saturation 8.8L, Ferritin 261, Total Bilirubin 0.9, Direct Bilirubin 0.4H, Aspartate Amino Transf (AST/SGOT) 15, Alanine Aminotransferase (ALT/SGPT) 14, Alkaline Phosphatase 58, C-Reactive Protein, Quantitative 35.90H, Total Protein 6.0L, Albumin 1.8L, Albumin/Globulin Ratio 0.4, Lipase 45L, Vitamin B12 Level 234L, Folate 12.3 10/23/20 03:51: Lactic Acid Level 5.1*H 10/23/20 03:59: Coronavirus (COVID-19)(PCR) NEGATIVE, Influenza Type A (RT-PCR) NEGATIVE, Influenza Type B (RT-PCR) NEGATIVE, Respiratory Syncytial Virus (PCR) NEGATIVE 10/23/20 05:05: Nucleated Red Blood Cells % (auto) 0.0, Anion Gap 10, Glomerular Filtration Rate 45.1L, Calcium Level 8.0L 10/23/20 08:22: Lactic Acid Followup at 4 Hours 2.7*H CBC/BMP Laboratory Tests 10/23/20 01:29 10/23/20 05:05 Microbiology Microbiology 10/23/20 Blood Culture, Received Pending 10/23/20 Blood Culture, Received Pending Home Medications Scheduled Apixaban (Eliquis) 5 Mg Tablet, 5 MG PO BID, (Reported) Cyanocobalamin (Vitamin B-12) (Vitamin B-12) 500 Mcg Tablet, 1,000 MCG PO DAILY Emollient Base (Vanicream) 453 Gm Cream..g., 1 DOSE TOP BID Apply to bilateral lower ext Ferrous Sulfate (Ferrous Sulfate) 325 Mg Tablet, 325 MG PO BID@0600,1800 Furosemide (Lasix) 20 Mg Tablet, 20 MG PO DAILY, (Reported) Hydrocodone/Acetaminophen (Hydrocodone-Acetamin 7.5-325) 1 Each Tablet, 1 TAB PO Q6H, (Reported) Insulin Detemir (Levemir) 100 Unit/1 Ml Vial, 20 UNITS SC QAM Insulin Human Lispro (Humalog) 100 Unit/1 Ml Vial, 0 UNITS SC AC Insulin Human Lispro (Humalog) 100 Unit/1 Ml Vial, 0 UNITS SC QHS Lactic Acid (Ama-Hydrolac) 222 Ml Lotion, 1 DOSE TOP DAILY Apply to feet and calluses daily Nicotine (Nicotine Patch) 21 Mg Patch.td24, 1 PATCH TD QHS Nystatin (Nystop) 60 Gm Powder, 0 DOSE TOP BID Apply to abdominal and groin folds Omeprazole (Omeprazole) 40 Mg Capsule.dr, 40 MG PO QHS, (Reported) Pantoprazole Sodium (Pantoprazole Sodium) 40 Mg Tablet.dr, 40 MG PO DAILY Scheduled PRN Acetaminophen (Acetaminophen) 325 Mg Tablet, 650 MG PO Q6HP PRN for FEVER Albuterol Sulfate (Proair Hfa) 8.5 Gm Hfa.aer.ad, 2 PUFF INH Q4H PRN for SHORTNESS OF BREATH, (Reported) Aluminum/Magnesium/Simeth (Mag-Al Plus Suspension) 30 Ml Oral.susp, 30 ML PO DAILYPRN PRN for DYSPEPSIA Oxycodone/Acetaminophen (Oxycodone-Acetaminophen 5-325) 1 Each Tablet, 1 TAB PO Q6HP PRN for MODERATE PAIN (PS 5-7) Oxycodone/Acetaminophen (Oxycodone-Acetaminophen 5-325) 1 Each Tablet, 2 TAB PO Q6HP PRN for SEVERE PAIN (PS 8-10) Allergies Coded Allergies: carisoprodol (Verified Allergy, Intermediate, rash, 01/23/20) MONICA SCOTT MD Oct 23, 2020 12:43
[2020-10-23] MEDS: VANCOMYCIN HCL 750 MG, VIAL MATE ADAPTER 1 EACH in D5W 250 ML IV SCH ×2 (13:32→20:00)
[2020-10-23 14:00] VITALS: BP 115/55
[2020-10-23] MEDS ORDERED: HEPARIN SOD (PORCINE) 5000UNITS/ML 1ML VIAL/SYRINGE SQ SCH (14:00)
[2020-10-23] MEDS: VANCOMYCIN HCL 500 MG in D5W MINI-BAG PLUS 100 ML IV SCH ×2 (14:12→22:33)
--- NOTE | 2020-10-23 15:07 | IPNPDOC ---
Date Seen The patient was seen on 10/23/20. Progress Note SUBJECTIVE: Necrotizing skin infection seen on CT abdomen pelvis, urology suggesting general surgery to see patient. To be taken to the OR for treatment. Started on appropriate IV abx. BP soft on initial admission by night team, started on IVFs 200 cc/hr NS, holding lasix. NPO with IV pain control. denies chest pain, shortness of breath, n/v/d. OBJECTIVE: PHYSICAL EXAMINATION: VS: Please see below GENERAL APPEARANCE: NAD, resting in bed, tearful at times HEENT: EOMI, PERRLA NECK: large diameter, no JVD, SUPPLE CARDIOVASCULAR: sinus tachycardia, no M/R/G LUNGS: CTAB on RA, no wheezing /R/R ABDOMEN: obese abdomen, see below for skin changes MUSCULOSKELETAL: Decreased ROM of right hip-chronic, pain with movement of this joint. INTEGUMENT: + rubor, dalor and calor of the skin surrounding the lower abdomen and upper thighs / he has a large pannus and several skin folds obscuring his groin, extensive swelling with pitting edema. Chronic skin changes in the b/l lower ext, dry skin : Could not locate testes and penis is inside abdominal pannus. NEUROLOGICAL: CN 1-12 intact / speech not dysarthric PSYCHIATRIC: mood and affect appropriate LABORATORY DATA: Please see below IMAGING: CT abd/pelvis: Toby's gas gangrene involving right scrotum, inguinal region extending towards the perineum/buttock and upwards toward the flank. There is peterson bcutaneous abscess under phlegmon. Imaging is very limited due to extreme body habitus, ring detector artifact and patient contact with the CT scanner shroud limiting [id number]. I see no other significant acute finding. MICROBIOLOGY: Respiratory panel neg Blood cx pending x 2 sets UA +, UCx pending ASSESSMENT: 50 yr old w a hx of UE DVT, ARJUN, Obesity and GERD who presented w c/o severe groin pain for several weeks and admitted for sepsis 2/2 necrotizing skin infection of groin/right scrotum, abscess, UTI. PLAN: Necrotizing skin infection of groin/right scrotum and perineum/buttocks, associated subcutaneous abscess with sepsis -WBC 15.2, febrile this AM, LA >5 on admission --> 2.7 -CT abd/pelvis above -Urology consulted and suggested general surgery due to extensive tissue involvement -NPO, OR likely today for further debridement/treatment -Started on Imipenem, Vancomycin and Clindamycin -NSS at 200 cc/hr, toradol and morphine for pain control/fever -F/u repeat LA, all micro above -Tele -General surgery (Dr. Sesay) consulted UTI with sepsis -UA +, UCx pending -C/w abx above Acute kidney injury likely prerenal 2/2 to dehydration, sepsis -Cr 1.76 --> 1.73 -C/w IVF above, holding diuretics and other nephrotoxic medications -Daily labs Hypotension likely 2/2 to sepsis/septic shock (early?) and dehydration -Improving with aggressive IVF hydration -Keeping MAP >65 mmHg -Holding home diuretics -Tele Anemia likely multifactorial for iron deficiency and Vitamin B12 -Low iron -Low Vitamin B12 -Start supplementation when taking PO DM type II -HbA1c 8.3, BS >200 -Started on AM levemir, ISS, FS Q6H - change to AC/HS after surgery Hypophosphatemia -Supplementing -F/u AM labs ARJUN -nightly CPAP 10 Tobacco Abuse -Smoking cessation education / nicotine patch Class 3 obesity -BMI 72.7 complicates care -Patient was to be referred to bariatric surgery last year ;however, due to COVID this did not happen. -Would recommend f/u after d/c GERD -PPI Hx of UE DVT, DVT px -Holding xarelto currently for surgery, can resume post op DISPOSITION: OR today, general surgery following. Will need PT/OT when medically improved. VS, I&O, 24H, Fishbone Vital Signs/I&O Vital Signs Date Time Temp Pulse Resp B/P (MAP) Pulse Ox O2 Delivery O2 Flow Rate FiO2 10/23/20 12:42 18 Room Air 10/23/20 11:00 97.1 105 116/57 (76) 97 Laboratory Data 24H LABS Laboratory Tests 2 10/23/20 01:29: Neutrophils (%) (Auto) , Nucleated Red Blood Cells % (auto) 0.0, Neutrophils 84H, Lymphocytes (Manual) 10L, Monocytes (Manual) 5, Atypical Lymphocytes 1, Anisocytosis 1+, Platelet Estimate NORMAL, Erythrocyte Sedimentation Rate 79H, Urine Color LEYDI, Urine Appearance CLOUDYH, Urine pH 5.0, Urine Specific [place] 1.028, Urine Protein 2+H, Urine Glucose (UA) 1+H, Urine Ketones NEGATIVE, Urine Blood 2+H, Urine Nitrite NEGATIVE, Urine Bilirubin 1+H, Urine Urobilinogen 4.0H, Urine Leukocyte Esterase NEGATIVE, Urine WBC (Auto) 5H, Urine RBC (Auto) 63H, Urine Hyaline Casts (Auto) 1, Urine Bacteria (Auto) NEGATIVE, Urine Squamous Epithelial Cells 1, Urine Amorphous Sediment SMALLH, Urine Mucus (Auto) SMALL, Urine Sperm (Auto) , Anion Gap 11, Glomerular Filtration Rate 44.2L, Estimated Mean Plasma Glucose 192H, Hemoglobin A1c 8.3, Calcium Level 8.0L, Phosphorus Level 1.8L, Iron Level 15L, Total Iron Binding Capacity 171L, Transferrin % Saturation 8.8L, Ferritin 261, Total Bilirubin 0.9, Direct Bilirubin 0.4H, Aspartate Amino Transf (AST/SGOT) 15, Alanine Aminotransferase (ALT/SGPT) 14, Alkaline Phosphatase 58, C-Reactive Protein, Quantitative 35.90H, Total Protein 6.0L, Albumin 1.8L, Albumin/Globulin Ratio 0.4, Lipase 45L, Vitamin B12 Level 234L, Folate 12.3 10/23/20 03:51: Lactic Acid Level 5.1*H 10/23/20 03:59: Coronavirus (COVID-19)(PCR) NEGATIVE, Influenza Type A (RT-PCR) NEGATIVE, Influenza Type B (RT-PCR) NEGATIVE, Respiratory Syncytial Virus (PCR) NEGATIVE 10/23/20 05:05: Nucleated Red Blood Cells % (auto) 0.0, Anion Gap 10, Glomerular Filtration Rate 45.1L, Calcium Level 8.0L 10/23/20 08:22: Lactic Acid Followup at 4 Hours 2.7*H 10/23/20 13:08: Bedside Glucose (Misc Panel) 207H CBC/BMP Laboratory Tests 10/23/20 01:29 10/23/20 05:05 Microbiology Microbiology 10/23/20 Blood Culture, Received Pending 10/23/20 Blood Culture, Received Pending Current Medications Current Medications Medications (Trade) Dose Ordered Sig/Alexandr Route PRN Reason Start Time Stop Time Status Last Admin Dose Admin Acetaminophen (Tylenol Tab) 650 mg Q4H PRN PO FEVER 10/23/20 03:45 10/23/20 08:02 Acetaminophen/ Hydrocodone Bitart (Anexsia, [place] 7.5mg/325mg) 1 tab Q6H PO 10/23/20 12:00 10/23/20 11:11 Al Hydrox/Mg Hydrox/Simethicone (Mylanta) 30 ml DAILY PRN PO DYSPEPSIA 10/23/20 03:45 Albuterol Sulfate (Proventil, Ventolin Hfa) 2 puff Q4H PRN INH SHORTNESS OF BREATH 10/23/20 06:45 Apixaban (Eliquis) 5 mg BID PO 10/23/20 09:00 10/23/20 11:27 DC Ceftaroline Fosamil 600 mg/ Dextrose 50 ml @ 50 mls/hr Q12H IV 10/23/20 17:00 10/23/20 09:17 DC Ceftriaxone Sodium 2 gm/ Dextrose 50 ml @ 100 mls/hr Q24H IV 10/23/20 11:00 10/23/20 11:27 DC 10/23/20 11:10 Clindamycin Phosphate 600 mg/ IV Miscellaneous Supplies 50 ml @ 100 mls/hr Q6H IV 10/23/20 15:00 Dextrose (Dextrose 50%) 25 ml ASDIRECTED PRN IV SEE LABEL COMMENTS 10/23/20 09:30 Furosemide (Lasix) 20 mg DAILY PO 10/23/20 09:00 10/23/20 11:06 DC Glucagon (Glucagon) 1 mg ASDIRECTED PRN SC SEE LABEL COMMENTS 10/23/20 09:30 Glucose (Glucose) 16 GM ASDIRECTED PRN PO SEE LABEL COMMENTS 10/23/20 09:30 Heparin Sodium (Porcine) (Heparin) 5,000 units Q8H SQ 10/23/20 14:00 Home Med (Med Rec Complete!) ASDIRECTED XX 10/23/20 04:00 10/23/20 03:53 DC Imipenem/ Cilastatin Sodium 1000 mg/Dextrose 100 ml @ 100 mls/hr Q6H IV 10/23/20 11:25 10/23/20 11:40 DC Imipenem/ Cilastatin Sodium 1000 mg/Sodium Chloride 250 ml @ 250 mls/hr Q6H IV 10/23/20 14:00 Insulin Human Lispro (HumaLOG INSULIN) SEE PROTOCOL TABLE AC SC 10/23/20 12:00 Insulin Human Lispro (HumaLOG INSULIN) SEE PROTOCOL TABLE QHS SC 10/23/20 21:00 Ketorolac Tromethamine (ToRADol) 15 mg Q6H PRN IV moderate PAIN OR FEVER 10/23/20 12:20 10/28/20 12:19 Lactated Ringer's 1,000 ml @ 70 mls/hr [id number] IV 10/23/20 03:45 10/23/20 09:17 DC Lactobacillus Acidophilus (Bacid) 1 ea BIDWM PO 10/23/20 18:00 Magnesium Hydroxide (Milk Of Magnesia) 30 ml DAILY PRN PO CONSTIPATION 10/23/20 03:45 Morphine Sulfate (Morphine Sulfate Inj) 1 mg Q4H PRN IV MODERATE PAIN (PS 5-7) 10/23/20 11:25 Nicotine (Nicoderm Cq 21mg) 1 patch QHS TD 10/23/20 21:00 Pantoprazole Sodium (Protonix) 40 mg QHS PO 10/23/20 21:00 Sodium Chloride 1,000 ml @ 200 mls/hr Q5H IV 10/23/20 09:15 10/23/20 11:07 Sodium Chloride (Nacl 0.9%) 1,000 ml BOLUS IV 10/23/20 03:45 10/23/20 03:46 DC 10/23/20 07:39 Vancomycin HCl 500 mg/Dextrose 110 ml @ 110 mls/hr Q8H IV 10/23/20 13:00 10/23/20 14:12 Vancomycin HCl 750 mg/IV Miscellaneous Supplies 1 each/ Dextrose 275 ml @ 275 mls/hr Q8H IV 10/23/20 12:00 10/23/20 13:32 Vancomycin HCl 1000 mg/IV Miscellaneous Supplies 1 each/ Dextrose 270 ml @ 270 mls/hr Q12H IV 10/23/20 07:00 10/23/20 11:01 DC Allergies Coded Allergies: carisoprodol (Verified Allergy, Intermediate, rash, 01/23/20) Jane Varghese MD Oct 23, 2020 15:07
[2020-10-23] MEDS: IMIPENEM/CILASTATIN 1,000 MG in NS 250 ML IV SCH ×2 (15:36→21:00)
[2020-10-23] MEDS ORDERED: POTASSIUM PHOSPHATE INJ 20 MMOL in D5W 250 ML IV ONE (16:00)
[2020-10-23] MEDS: CLINDAMYCIN 600 MG in IV 1 EA IV SCH ×2 (16:04→22:33)
--- NOTE | 2020-10-23 16:19 | SMCUROLCON ---
Urology Consultation General Date of Consultation 10/23/20 Reason For Consultation This patient is seen for Juancarlos,Panniculitis and CT finding suggestive of Toby's gangrene History of Present Illness The patient is a 50-year-old male who presented to the hospital with 2-3 week history of lower abdominal and pelvic pain. He states that he presented to the hospital because the pain was just too much to bear. He denies any history of trauma or known infection. He has no voiding complaints. At best, he has difficulty ambulating with a walker but states that he has not been able to even do this in the last couple days because of his groin pain. Upon presentation to the emergency room a CT scan was obtained and he was admitted to the floor. The CT scan is highly suspicious for necrotizing fasciitis of the buttocks, perineum and groin and perhaps the right hemiscrotum. Therefore a urology consult was called. Past Medical History Medical History GERD Upper extremity DVT Sleep apnea on CPAP Morbid obesity CO 72.7 Arthritis Cellulitis Left hip repair Surgical Hstory Left hip repair Social History * Smoker: current smoker Alcohol: sober Drugs: denies Medications Current Medications Current Medications Medications (Trade) Dose Ordered Sig/Alexandr Route PRN Reason Start Time Stop Time Status Last Admin Dose Admin Acetaminophen (Tylenol Tab) 650 mg Q4H PRN PO FEVER 10/23/20 03:45 10/23/20 08:02 Acetaminophen/ Hydrocodone Bitart (Anexsia, [place] 7.5mg/325mg) 1 tab Q6H PO 10/23/20 12:00 10/23/20 11:11 Al Hydrox/Mg Hydrox/Simethicone (Mylanta) 30 ml DAILY PRN PO DYSPEPSIA 10/23/20 03:45 Albuterol Sulfate (Proventil, Ventolin Hfa) 2 puff Q4H PRN INH SHORTNESS OF BREATH 10/23/20 06:45 Apixaban (Eliquis) 5 mg BID PO 10/23/20 09:00 10/23/20 11:27 DC Ceftaroline Fosamil 600 mg/ Dextrose 50 ml @ 50 mls/hr Q12H IV 10/23/20 17:00 10/23/20 09:17 DC Ceftriaxone Sodium 2 gm/ Dextrose 50 ml @ 100 mls/hr Q24H IV 10/23/20 11:00 10/23/20 11:27 DC 10/23/20 11:10 Clindamycin Phosphate 600 mg/ IV Miscellaneous Supplies 50 ml @ 100 mls/hr Q6H IV 10/23/20 15:00 Dextrose (Dextrose 50%) 25 ml ASDIRECTED PRN IV SEE LABEL COMMENTS 10/23/20 09:30 Emollient Cream (Vanicream) 1 dose BID TOP 10/23/20 21:00 Furosemide (Lasix) 20 mg DAILY PO 10/23/20 09:00 10/23/20 11:06 DC Glucagon (Glucagon) 1 mg ASDIRECTED PRN SC SEE LABEL COMMENTS 10/23/20 09:30 Glucose (Glucose) 16 GM ASDIRECTED PRN PO SEE LABEL COMMENTS 10/23/20 09:30 Heparin Sodium (Porcine) (Heparin) 5,000 units Q8H SQ 10/23/20 14:00 10/23/20 15:06 DC Home Med (Med Rec Complete!) ASDIRECTED XX 10/23/20 04:00 10/23/20 03:53 DC Imipenem/ Cilastatin Sodium 1000 mg/Dextrose 100 ml @ 100 mls/hr Q6H IV 10/23/20 11:25 10/23/20 11:40 DC Imipenem/ Cilastatin Sodium 1000 mg/Sodium Chloride 250 ml @ 250 mls/hr Q6H IV 10/23/20 14:00 10/23/20 15:36 Insulin Detemir (Levemir Insulin) 10 units QAM SC 10/24/20 09:00 Insulin Human Lispro (HumaLOG INSULIN) SEE PROTOCOL TABLE AC SC 10/23/20 12:00 10/23/20 14:57 DC Insulin Human Lispro (HumaLOG INSULIN) SEE PROTOCOL TABLE Q6H SC 10/23/20 18:00 Insulin Human Lispro (HumaLOG INSULIN) SEE PROTOCOL TABLE QHS SC 10/23/20 21:00 10/23/20 14:57 DC Ketorolac Tromethamine (ToRADol) 15 mg Q6H PRN IV moderate PAIN OR FEVER 10/23/20 12:20 10/28/20 12:19 Lactated Ringer's 1,000 ml @ 70 mls/hr [id number] IV 10/23/20 03:45 10/23/20 09:17 DC Lactobacillus Acidophilus (Bacid) 1 ea BIDWM PO 10/23/20 18:00 Magnesium Hydroxide (Milk Of Magnesia) 30 ml DAILY PRN PO CONSTIPATION 10/23/20 03:45 Morphine Sulfate (Morphine Sulfate Inj) 1 mg Q4H PRN IV MODERATE PAIN (PS 5-7) 10/23/20 11:25 Nicotine (Nicoderm Cq 21mg) 1 patch QHS TD 10/23/20 21:00 Pantoprazole Sodium (Protonix) 40 mg DAILY IV 10/24/20 09:00 Pantoprazole Sodium (Protonix) 40 mg QHS PO 10/23/20 21:00 10/23/20 14:57 DC Sodium Chloride 1,000 ml @ 200 mls/hr Q5H IV 10/23/20 09:15 10/23/20 11:07 Sodium Chloride (Nacl 0.9%) 1,000 ml BOLUS IV 10/23/20 03:45 10/23/20 03:46 DC 10/23/20 07:39 Vancomycin HCl 500 mg/Dextrose 110 ml @ 110 mls/hr Q8H IV 10/23/20 13:00 10/23/20 14:12 Vancomycin HCl 750 mg/IV Miscellaneous Supplies 1 each/ Dextrose 275 ml @ 275 mls/hr Q8H IV 10/23/20 12:00 10/23/20 13:32 Vancomycin HCl 1000 mg/IV Miscellaneous Supplies 1 each/ Dextrose 270 ml @ 270 mls/hr Q12H IV 10/23/20 07:00 10/23/20 11:01 DC Allergies Allergies: Coded Allergies: carisoprodol (Verified Allergy, Intermediate, rash, 01/23/20) Review of Systems General: Reports: Normal Appetite; Denies: Fatigue, Malaise Constitutional: Denies: Fever, Chills, Sweats, Weakness, Malaise Eyes: Denies: Pain, Vision change ENT: Denies: Head Aches, Sore Throat, Epistaxis Skin: Reports: Bruising Pulmonary: Denies: Dyspnea, Cough Cardiovascular: Denies Chest Pain, Denies Palpitations Gastrointestinal: Denies: Nausea, Vomiting, Abdominal Pain Genitourinary: Denies: Dysuria, Frequency, Incontinence, Hematuria Physical Examination General Exam: Cooperative, Mild Distress, Other (obese) EYE EXAM: PERRLA, Conjunctiva & lids normal, EOMI; No: Sclera icteric ENT EXAM: Atraumatic, Mucous membr. moist/pink, Pharynx Normal Neck Exam: Supple; No: JVD, thyromegaly Chest Exam: Clear to auscultation, Normal air movement Heart Exam: Rate Normal, Regular Rhythm, Normal S1, Normal S2; No: Murmurs, Rubs Abdomen Exam: Other (obese, soft, hypogastric and pannus area arm to palpate but not tender with inflamed skin) Male Exam The penis is retracted and unable to examine because of the patient's size. Testicles palpate normally scrotal skin on the right side is slightly inflamed. Perineum has skin changes and cellulitis Vital Signs/I&O Vital Signs Date Time Temp Pulse Resp B/P (MAP) Pulse Ox O2 Delivery O2 Flow Rate FiO2 10/23/20 15:57 Full Face Mask 10/23/20 12:42 18 10/23/20 11:00 97.1 105 116/57 (76) 97 Laboratory Data 24H Labs Laboratory Tests 2 10/23/20 01:29: Neutrophils (%) (Auto) , Nucleated Red Blood Cells % (auto) 0.0, Neutrophils 84H, Lymphocytes (Manual) 10L, Monocytes (Manual) 5, Atypical Lymphocytes 1, Anisocytosis 1+, Platelet Estimate NORMAL, Erythrocyte Sedimentation Rate 79H, Urine Color LEYDI, Urine Appearance CLOUDYH, Urine pH 5.0, Urine Specific [place] 1.028, Urine Protein 2+H, Urine Glucose (UA) 1+H, Urine Ketones NEGATIVE, Urine Blood 2+H, Urine Nitrite NEGATIVE, Urine Bilirubin 1+H, Urine Urobilinogen 4.0H, Urine Leukocyte Esterase NEGATIVE, Urine WBC (Auto) 5H, Urine RBC (Auto) 63H, Urine Hyaline Casts (Auto) 1, Urine Bacteria (Auto) NEGATIVE, Urine Squamous Epithelial Cells 1, Urine Amorphous Sediment SMALLH, Urine Mucus (Auto) SMALL, Urine Sperm (Auto) , Anion Gap 11, Glomerular Filtration Rate 44.2L, Estimated Mean Plasma Glucose 192H, Hemoglobin A1c 8.3, Calcium Level 8.0L, Phosphorus Level 1.8L, Iron Level 15L, Total Iron Binding Capacity 171L, Transferrin % Saturation 8.8L, Ferritin 261, Total Bilirubin 0.9, Direct Bilirubin 0.4H, Aspartate Amino Transf (AST/SGOT) 15, Alanine Aminotransferase (ALT/SGPT) 14, Alkaline Phosphatase 58, C-Reactive Protein, Quantitative 35.90H, Total Protein 6.0L, Albumin 1.8L, Albumin/Globulin Ratio 0.4, Lipase 45L, Vitamin B12 Level 234L, Folate 12.3 10/23/20 03:51: Lactic Acid Level 5.1*H 10/23/20 03:59: Coronavirus (COVID-19)(PCR) NEGATIVE, Influenza Type A (RT-PCR) NEGATIVE, Influenza Type B (RT-PCR) NEGATIVE, Respiratory Syncytial Virus (PCR) NEGATIVE 10/23/20 05:05: Nucleated Red Blood Cells % (auto) 0.0, Anion Gap 10, Glomerular Filtration Rate 45.1L, Calcium Level 8.0L 10/23/20 08:22: Lactic Acid Followup at 4 Hours 2.7*H 10/23/20 13:08: Bedside Glucose (Misc Panel) 207H CBC/BMP Laboratory Tests 10/23/20 01:29 10/23/20 05:05 Microbiology Microbiology 10/23/20 Blood Culture, Received Pending 10/23/20 Blood Culture, Received Pending Assessment Cellulitis of pannus, perineum, right buttocks Plan Patient to be referred to general surgery. I will be available if needed for any scrotal work that may need to be done. Time Spent on Consult: Time Spent / Consult (Minutes): 65 KANIKA AGUDELO MD Oct 23, 2020 16:07
[2020-10-23] MEDS: LACTOBACILLUS ACIDOPHILUS CAP (BACID) PO SCH (16:56)
[2020-10-23] MEDS: HumaLOG INSULIN (NovoLOG) PER UNIT SC SCH (16:56)
[2020-10-23] MEDS ORDERED: CEFTAROLINE FOSAMIL 600 MG in D5W MINI-BAG PLUS 50 ML IV SCH (17:00)
[2020-10-23] MEDS ORDERED: dexameTHASONE 4 MG/ML 1ML VIAL (J1100 PER 1MG) As Ordered ONE (19:49)
[2020-10-23] MEDS ORDERED: KETOROLAC 60MG 2ML VIAL As Ordered ONE (19:49)
[2020-10-23] MEDS ORDERED: LIDOCAINE 2% 100MG/5ML SDV (FOR ANES.) As Ordered ONE (19:49)
[2020-10-23] MEDS ORDERED: ONDANSETRON 4MG/2ML VIAL As Ordered ONE (19:49)
[2020-10-23] MEDS ORDERED: propofoL 200 MG/20 ML VIAL As Ordered ONE (19:49)
[2020-10-23] MEDS ORDERED: SUGAMMADEX SODIUM 500 MG/5 ML VIAL (BRIDION) As Ordered ONE (19:49)
[2020-10-23] MEDS ORDERED: ACETAMINOPHEN 1000MG 100ML IV BTL (OFIRMEV) (J0131 PER 10MG) As Ordered ONE (19:49)
[2020-10-23] MEDS ORDERED: ROCURONIUM BROMIDE 50 MG/5 ML VIAL As Ordered ONE ×3 (19:49→22:26)
[2020-10-23] MEDS ORDERED: MIDAZOLAM INJ 2MG/2ML VIAL (J2250 PER 1MG) As Ordered ONE (19:50)
[2020-10-23] MEDS ORDERED: fentaNYL 100 MCG/2 ML INJECTION (J3010) As Ordered ONE (19:50)
[2020-10-23] MEDS: VANICREAM MOISTURIZING SKIN CREAM 113GM TUBE TOP SCH (21:00)
[2020-10-23] MEDS ORDERED: PANTOPRAZOLE 40MG TAB (PROTONIX) PO SCH (21:00)
[2020-10-23] MEDS: NICOTINE 21MG/24HR 1 EA TRANSDERMAL TD SCH (21:00)
[2020-10-23] MEDS ORDERED: PHENYLEPHRINE 10MG/ML 1ML VIAL (J2370 PER 1) As Ordered ONE (21:13)
[2020-10-23] MEDS ORDERED: VANCOMYCIN 750MG/25ML VIAL As Ordered ONE (21:18)
[2020-10-23] MEDS ORDERED: THROMBIN SOLN 20,000 UNITS KIT As Ordered ONE (22:00)
[2020-10-23] MEDS ORDERED: MIDAZOLAM 5MG/ML 1ML VIAL (J2250 PER 1MG) As Ordered ONE (22:02)
[2020-10-23 22:22] LABS: HEMATOCRIT 37.1 % (42.0-52.0); HEMOGLOBIN 11.1 g/dl (13.5-17.5); MEAN CORPUSCULAR HEMOGLOBIN 25.5 pg (27.0-33.0); MEAN CORPUSCULAR HGB CONC 29.9 g/dl (32.0-36.5); MEAN CORPUSCULAR VOLUME 85.1 fl (80.0-96.0); PLATELET COUNT, AUTOMATED 177 10^3/uL (150-450); RED BLOOD COUNT 4.36 10^6/uL (4.30-6.10); WHITE BLOOD COUNT 14.5 10^3/uL (4.0-10.0)
[2020-10-23] MEDS ORDERED: VASOPRESSIN INJ 20 UNITS/ML VIAL As Ordered ONE (22:22)
[2020-10-23] MEDS ORDERED: CLINDAMYCIN 600 MG/50 ML PREMIX BAG As Ordered ONE (22:33)
[2020-10-23] MEDS ORDERED: VANCOMYCIN 500MG/10ML VIAL As Ordered ONE (22:33)
[2020-10-23 22:54] LABS: ATYPICAL LYMPH 1 % (0-5); LYMPHOCYTES 18 % (16-44); METAMYELOCYTES 1 % (0-0); MONOCYTES 4 % (0-5); NEUTROPHILS 41 % (28-66); PLATELET ESTIMATE NORMAL (NORMAL)
[2020-10-23 22:55] LABS: ANISOCYTOSIS 1+
--- NOTE | 2020-10-23 23:35 | ROOPDOC ---
[facility] Report Of Operation Report of Operation DATE OF PROCEDURE: 10/23/20 PREPROCEDURE DIAGNOSES: Retracted penis and difficulty inserting Soto catheter POSTPROCEDURE DIAGNOSES: Same PROCEDURE: Pelvic examination and insertion of Soto catheter SURGEON: Sonido Dunn MD [employer] ATTENDANT: None ANESTHESIA: Gen. ESTIMATED BLOOD LOSS: Approximately none mL. COMPLICATIONS: None REMARKS: Procedures, located by extreme obesity and necrotizing fasciitis in the groin area PROCEDURE NOTE: Patient was brought to the operating room for treatment of necrotizing fasciitis. The penis was so retracted and could not be identified and urology consult was called for. DESCRIPTION OF PROCEDURE: Patient was already anesthetized upon entering the room. The pannus was retracted and the scrotum was examined. The right scrotum was inflamed but palpated normally with normal testicles. The penis was retracted several inches into the periurethral fat. With retraction of the panniculus the glans just barely able to be identified. It was then cleansed and a 16 [place] Soto catheter was inserted and joao color urine was drained. The balloon was inflated and connected to closed drainage. The patient was then turned over to Dr. Sesay for the procedure. SONIDO DUNN MD Oct 23, 2020 23:35
[2020-10-24] VITALS (17 sets, daily range): BP systolic 74–138; BP diastolic 37–65
[2020-10-24] MEDS ORDERED: MORPHINE 4 MG/ML 1ML VIAL/SYRINGE (J2270) IV PRN (00:05)
[2020-10-24] MEDS ORDERED: PERCOCET 5MG/325MG TAB PO PRN ×2 (00:05→00:15)
[2020-10-24] MEDS ORDERED: LR 1,000 ML IV SCH (00:15)
[2020-10-24] MEDS ORDERED: fentaNYL 100 MCG/2 ML INJECTION (J3010) IV PRN (00:15)
[2020-10-24] MEDS ORDERED: METOCLOPRAMIDE INJ 10MG/2ML VIAL (J2765 PER 1) IV PRN (00:15)
[2020-10-24] MEDS ORDERED: ONDANSETRON 4MG/2ML VIAL IV PRN (00:15)
[2020-10-24 00:23] LABS: HEMATOCRIT 34.2 % (42.0-52.0); HEMOGLOBIN 10.3 g/dl (13.5-17.5); MEAN CORPUSCULAR HEMOGLOBIN 25.6 pg (27.0-33.0); MEAN CORPUSCULAR HGB CONC 30.1 g/dl (32.0-36.5); MEAN CORPUSCULAR VOLUME 85.1 fl (80.0-96.0); PLATELET COUNT, AUTOMATED 161 10^3/uL (150-450); RED BLOOD COUNT 4.02 10^6/uL (4.30-6.10); WHITE BLOOD COUNT 12.8 10^3/uL (4.0-10.0)
[2020-10-24 00:52] LABS: CALCIUM LEVEL 7.7 MG/DL (8.5-10.1); CREATININE FOR GFR 1.47 MG/DL (0.70-1.30); GLOMERULAR FILTRATION RATE 54.4 (>60); POTASSIUM SERUM 4.7 MEQ/L (3.5-5.1)
[2020-10-24 00:59] LABS: ANISOCYTOSIS 1+; BASOPHILS 1 % (0-1); LYMPHOCYTES 12 % (16-44); METAMYELOCYTES 4 % (0-0); MONOCYTES 3 % (0-5); NEUTROPHILS 67 % (28-66); PLATELET ESTIMATE NORMAL (NORMAL); POLYCHROMASIA 1+
[2020-10-24] MEDS: PERCOCET 5MG/325MG TAB PO PRN (01:19)
[2020-10-24] MEDS: HumaLOG INSULIN (NovoLOG) PER UNIT SC SCH ×5 (01:30→20:30)
[2020-10-24] MEDS: IMIPENEM/CILASTATIN 1,000 MG in NS 250 ML IV SCH ×4 (03:19→20:26)
[2020-10-24] MEDS: LR 1,000 ML IV SCH ×3 (03:20→20:18)
[2020-10-24] MEDS ORDERED: LR 1,000 ML IV ONE ×2 (04:50→05:50)
[2020-10-24] MEDS: CLINDAMYCIN 600 MG in IV 1 EA IV SCH ×4 (05:01→22:11)
[2020-10-24 05:09] LABS: HEMATOCRIT 33.2 % (42.0-52.0); MEAN CORPUSCULAR HEMOGLOBIN 26.1 pg (27.0-33.0); MEAN CORPUSCULAR HGB CONC 30.1 g/dl (32.0-36.5); MEAN CORPUSCULAR VOLUME 86.7 fl (80.0-96.0); PLATELET COUNT, AUTOMATED 159 10^3/uL (150-450); RED BLOOD COUNT 3.83 10^6/uL (4.30-6.10); WHITE BLOOD COUNT 11.3 10^3/uL (4.0-10.0)
[2020-10-24 05:29] LABS: BLOOD UREA NITROGEN 20 MG/DL (7-18); CALCIUM LEVEL 7.4 MG/DL (8.5-10.1); CARBON DIOXIDE LEVEL 27 MEQ/L (21-32); CHLORIDE LEVEL 105 MEQ/L (98-107); GLOMERULAR FILTRATION RATE > 60.0 (>60); GLUCOSE, FASTING 250 MG/DL (70-100); MAGNESIUM LEVEL 1.8 MG/DL (1.8-2.4); PHOSPHORUS LEVEL 3.4 MG/DL (2.5-4.9); POTASSIUM SERUM 4.3 MEQ/L (3.5-5.1); SODIUM LEVEL 136 MEQ/L (136-145)
[2020-10-24 05:32] LABS: HEMOGLOBIN A1c 8.2 %
[2020-10-24] MEDS: VANCOMYCIN HCL 750 MG, VIAL MATE ADAPTER 1 EACH in D5W 250 ML IV SCH ×2 (05:39→12:18)
[2020-10-24] MEDS: ANEXSIA, NORCO 7.5MG/325MG TABLET(HYDROCODONE/APAP) PO SCH ×5 (05:59→23:44)
[2020-10-24] MEDS: VANCOMYCIN HCL 500 MG in D5W MINI-BAG PLUS 100 ML IV SCH ×2 (06:45→21:47)
[2020-10-24] MEDS: PANTOPRAZOLE 40MG VIAL (C9113 PER 1) IV SCH (08:21)
[2020-10-24] MEDS: LACTOBACILLUS ACIDOPHILUS CAP (BACID) PO SCH ×2 (08:21→18:11)
[2020-10-24] MEDS: VANICREAM MOISTURIZING SKIN CREAM 113GM TUBE TOP SCH ×2 (09:00→20:49)
[2020-10-24] MEDS ORDERED: LEVEMIR (INSULIN DETEMIR) 1 UNITS/0.01ML SC SCH (09:00)
[2020-10-24] MEDS ORDERED: VANCOMYCIN HCL 750 MG, VIAL MATE ADAPTER 1 EACH in D5W 250 ML IV SCH (13:00)
--- NOTE | 2020-10-24 13:10 | IPNPDOC ---
Text Note Date of Service The patient was seen on 10/24/20. NOTE Patient seen this morning. He underwent emergent debridement of a necrotizing right groin soft tissue infection last night. He was hemodynamically stable overnight and has increased his urine output postoperatively. He reports being comfortable at this time. No overnight events reported. The did change the ABD pads overlying the open wound early this morning after being saturated. Vital signs stable postop, none tachycardic MAXIMUM TEMPERATURE 97.7 BP 115/56 Examination Patient laying flat on bed looks comfortable. He is awake alert and oriented. Regular heart rate and rhythm Clear breath sounds anteriorly Abdomen obese, soft Right groin open wound with relatively dry EBD pads. There is drop attacks and Kerlix underneath the ABD pads. No active bleeding. Receding erythema of the surrounding skin. The suprapubic fat pad this enlarged chronically, no fluctuance within the enlarged suprapubic fat pad. Chronic thickening of the skin. Retracted penile shaft with Soto catheter in that. The urine is a lot less concentrated VS,Fishbone, I+O VS, Fishbone, I+O Laboratory Tests 10/23/20 22:10 10/24/20 00:15 10/24/20 04:53 Vital Signs Date Time Temp Pulse Resp B/P (MAP) Pulse Ox O2 Delivery O2 Flow Rate FiO2 10/24/20 12:19 18 10/24/20 08:00 2.0 10/24/20 08:00 96.8 81 115/56 (75) 97 Nasal Cannula 10/23/20 15:57 21 I&O- Last 24 Hours up to 6 AM 10/24/20 05:59 Intake Total 6340 ml Output Total 1725 ml Balance 4615 ml MONICA SCOTT MD Oct 24, 2020 13:10
--- NOTE | 2020-10-24 15:32 | IPNPDOC ---
Date Seen The patient was seen on 10/24/20. Progress Note SUBJECTIVE: POD 1 debridement of necrotized area in groin, anterior pannus- official operative report pending. Patient was moved to ICU post-op due to hypotension. BP improved with IV fluids, wearing off of anesthesia. Lactic acid now wnl, Cr wnl. N/V with eating, patient states this happens frequently at home. Possible gastroparesis with uncontrolled DM as new diagnosis? Started on reglan. To return to OR on 10/25/20. Denies chest pain, shortness of breath, n/v/d. OBJECTIVE: PHYSICAL EXAMINATION: VS: Please see below GENERAL APPEARANCE: NAD, resting in bed HEENT: EOMI, PERRLA NECK: large diameter, no JVD, SUPPLE CARDIOVASCULAR: sinus rhythm, no M/R/G LUNGS: CTAB on RA, no wheezing /R/R ABDOMEN: obese abdomen, see below for skin changes MUSCULOSKELETAL: Decreased ROM of right hip-chronic, pain with movement of this joint. INTEGUMENT: + rubor, dalor and calor of the skin surrounding the lower abdomen and upper thighs- slightly improvement today in swelling, redness. He has a large pannus and several skin folds obscuring his groin, extensive swelling with pitting edema- improving. Chronic skin changes in the b/l lower ext, dry skin : Extensive open area from incisions along groin, under pannus. Soto catheter in place. NEUROLOGICAL: CN 1-12 intact / speech not dysarthric PSYCHIATRIC: mood and affect appropriate LABORATORY DATA: Please see below IMAGING: CT abd/pelvis: Toby's gas gangrene involving right scrotum, inguinal region extending towards the perineum/buttock and upwards toward the flank. There is subcutaneous abscess under phlegmon. Imaging is very limited due to extreme body habitus, ring detector artifact and patient contact with the CT scanner shroud limiting [id number]. I see no other significant acute finding. MICROBIOLOGY: Abscess GS: Neg Abscess Cx: pending Respiratory panel neg Blood cx NG x 2 sets UA +,UCx never sent, repeating today ASSESSMENT: 50 yr old w a hx of UE DVT, ARJUN, Obesity and GERD who presented w c/o severe groin pain for several weeks and admitted for sepsis 2/2 necrotizing skin infection of groin/right scrotum, abscess, UTI. PLAN: Necrotizing skin infection of groin/right scrotum and perineum/buttocks, associated subcutaneous abscess with resolved sepsis -POD 1 for skin, soft tissue debridement of necrotizing skin in groin/scrotum, perineum/buttocks, drainage of abscess -WBC improved to 11.3 , afebrile this AM, LA wnl -CT abd/pelvis above -Abscess GS neg, Cx pending -C/w Imipenem, Vancomycin and Clindamycin, probiotic, LR at 100 cc/hr, pain control, wound care -General surgery (Dr. Sesay) consulted and likely taking back to OR 10/25/20 UTI with resolved sepsis -UA +, UCx not sent -Repeat UA with reflex to culture today -C/w abx above Acute kidney injury likely prerenal 2/2 to dehydration, sepsis -Cr 1.3 and wnl -C/w IVF above, holding diuretics and other nephrotoxic medications -Daily labs Hypotension likely 2/2 to sepsis/septic shock (early?), dehydration and (post- op) anesthesia- improving -Improving with IVF hydration -Keeping MAP >65 mmHg -Holding home diuretics -Tele Nausea/vomiting s/p eating, chronic issue -Possible gastroparesis vs. uncontrolled GERD? -Keep PPI -Starting reglan TID with meals -Zofran PRN Anemia likely multifactorial for iron deficiency and Vitamin B12 -Low iron -Low Vitamin B12 -Start supplementation today DM type II -HbA1c 8.3, BS >200 -Increased AM levemir, ISS, FS AC/HS Hypophosphatemia- improved -Supplemented 10/23/20 -F/u AM labs ARJUN -nightly CPAP 10 Tobacco Abuse -Smoking cessation education / nicotine patch Class 3 obesity -BMI 72.7 complicates care -Patient was to be referred to bariatric surgery last year ;however, due to COVID this did not happen. -Would recommend f/u after d/c GERD -PPI Hx of UE DVT, DVT px -Holding xarelto currently for surgery. Discussed with surgery today, not doing heparin gtt at this time. scd, teds DISPOSITION: OR again on 10/25/20, general surgery following. Will need PT/OT when medically improved. VS, I&O, 24H, Fishbone Vital Signs/I&O Vital Signs Date Time Temp Pulse Resp B/P (MAP) Pulse Ox O2 Delivery O2 Flow Rate FiO2 10/24/20 14:00 96.8 94 16 109/55 (73) 95 Room Air 10/24/20 12:00 2.0 10/23/20 15:57 21 I&O- Last 24 Hours up to 6 AM 10/24/20 06:00 Intake Total 6340 ml Output Total 2000 ml Balance 4340 ml Laboratory Data 24H LABS Laboratory Tests 2 10/23/20 16:49: Bedside Glucose (Misc Panel) 174H 10/23/20 22:10: Neutrophils (%) (Auto) , Nucleated Red Blood Cells % (auto) 0.0, Neutrophils 41, Band Neutrophils 35H, Lymphocytes (Manual) 18, Monocytes (Manual) 4, Metamyelocytes 1H, Atypical Lymphocytes 1, Anisocytosis 1+, Microcytosis , Platelet Estimate NORMAL 10/24/20 00:15: Neutrophils (%) (Auto) , Nucleated Red Blood Cells % (auto) 0.0, Neutrophils 67H, Band Neutrophils 13H, Lymphocytes (Manual) 12L, Monocytes (Manual) 3, Metamyelocytes 4H, Anisocytosis 1+, Platelet Estimate NORMAL, Basophils (Manual) 1, Polychromasia 1+, Anion Gap 8, Glomerular Filtration Rate 54.4L, Lactic Acid Level 3.0*H, Calcium Level 7.7L 10/24/20 04:53: Nucleated Red Blood Cells % (auto) 0.0, Anion Gap 4L, Glomerular Filtration Rate > 60.0, Calcium Level 7.4L, Estimated Mean Plasma Glucose 189H, Hemoglobin A1c 8.2, Lactic Acid Followup at 4 Hours 1.8, Phosphorus Level 3.4#, Magnesium Level 1.8 10/24/20 11:24: Vancomycin Level Trough 11.8 10/24/20 12:06: Bedside Glucose (Misc Panel) 213H CBC/BMP Laboratory Tests 10/23/20 22:10 10/24/20 00:15 10/24/20 04:53 Microbiology Microbiology 10/23/20 Gram Stain - Final, Resulted 10/23/20 Abscess Culture, Resulted Pending 10/23/20 Anaerobic Culture, Resulted Pending 10/23/20 Blood Culture - Preliminary, Resulted No growth after 24 hours . All specim... 10/23/20 Blood Culture - Preliminary, Resulted No growth after 24 hours . All specim... Current Medications Current Medications Medications (Trade) Dose Ordered Sig/Alexandr Route PRN Reason Start Time Stop Time Status Last Admin Dose Admin Acetaminophen (Tylenol Tab) 650 mg Q4H PRN PO FEVER 10/23/20 03:45 10/23/20 08:02 Acetaminophen/ Hydrocodone Bitart (Anexsia, [place] 7.5mg/325mg) 1 tab Q6H PO 10/23/20 12:00 10/24/20 12:19 Al Hydrox/Mg Hydrox/Simethicone (Mylanta) 30 ml DAILY PRN PO DYSPEPSIA 10/23/20 03:45 Albuterol Sulfate (Proventil, Ventolin Hfa) 2 puff Q4H PRN INH SHORTNESS OF BREATH 10/23/20 06:45 Apixaban (Eliquis) 5 mg BID PO 10/23/20 09:00 10/23/20 11:27 DC Ceftaroline Fosamil 600 mg/ Dextrose 50 ml @ 50 mls/hr Q12H IV 10/23/20 17:00 10/23/20 09:17 DC Ceftriaxone Sodium 2 gm/ Dextrose 50 ml @ 100 mls/hr Q24H IV 10/23/20 11:00 10/23/20 11:27 DC 10/23/20 11:10 Clindamycin Phosphate 600 mg/ IV Miscellaneous Supplies 50 ml @ 100 mls/hr Q6H IV 10/23/20 15:00 10/24/20 08:29 Dextrose (Dextrose 50%) 25 ml ASDIRECTED PRN IV SEE LABEL COMMENTS 10/23/20 09:30 Emollient Cream (Vanicream) 1 dose BID TOP 10/23/20 21:00 10/24/20 09:00 Fentanyl Citrate (Sublimaze) 25 mcg Q5MP PRN IV PAIN LEVEL 5-10 10/24/20 00:15 10/24/20 01:14 DC Furosemide (Lasix) 20 mg DAILY PO 10/23/20 09:00 10/23/20 11:06 DC Glucagon (Glucagon) 1 mg ASDIRECTED PRN SC SEE LABEL COMMENTS 10/23/20 09:30 Glucose (Glucose) 16 GM ASDIRECTED PRN PO SEE LABEL COMMENTS 10/23/20 09:30 Heparin Sodium (Porcine) (Heparin) 5,000 units Q8H SQ 10/23/20 14:00 10/23/20 15:06 DC Home Med (Med Rec Complete!) ASDIRECTED XX 10/23/20 04:00 10/23/20 03:53 DC Imipenem/ Cilastatin Sodium 1000 mg/Dextrose 100 ml @ 100 mls/hr Q6H IV 10/23/20 11:25 10/23/20 11:40 DC Imipenem/ Cilastatin Sodium 1000 mg/Sodium Chloride 250 ml @ 250 mls/hr Q6H IV 10/23/20 14:00 10/24/20 09:28 Insulin Detemir (Levemir Insulin) 10 units QAM [place] 10/24/20 09:00 10/24/20 08:21 Insulin Human Lispro (HumaLOG INSULIN) SEE PROTOCOL TABLE AC [place] 10/23/20 12:00 10/23/20 14:57 DC Insulin Human Lispro (HumaLOG INSULIN) SEE PROTOCOL TABLE AC [place] 10/24/20 12:00 10/24/20 12:19 Insulin Human Lispro (HumaLOG INSULIN) [facility] 10/23/20 18:00 10/24/20 10:52 DC 10/24/20 05:51 Insulin Human Lispro (HumaLOG INSULIN) SEE PROTOCOL TABLE QHS [place] 10/23/20 21:00 10/23/20 14:57 DC Insulin Human Lispro (HumaLOG INSULIN) [facility] 10/[facility] 21:00 Ketorolac Tromethamine (ToRADol) 15 mg Q6H PRN IV moderate PAIN OR FEVER 10/23/20 12:20 10/23/20 23:58 DC Lactated Ringer's 1,000 ml @ 70 mls/hr [id number] IV 10/23/20 03:45 10/23/20 09:17 DC Lactated Ringer's 1,000 ml @ 100 mls/hr Q10H IV 10/24/20 00:05 10/24/20 08:21 Lactated Ringer's 1,000 ml @ 100 mls/hr Q10H IV 10/24/20 00:15 10/24/20 01:14 DC Lactobacillus Acidophilus (Bacid) 1 ea BIDWM PO 10/23/20 18:00 10/24/20 08:21 Magnesium Hydroxide (Milk Of Magnesia) 30 ml DAILY PRN PO CONSTIPATION 10/23/20 03:45 Metoclopramide HCl (REGLAN INJection) 10 mg Q6HP PRN IV NAUSEA OR VOMITING 10/24/20 00:15 10/24/20 01:14 DC Metoclopramide HCl (REGLAN INJection) 10 mg TID IV 10/24/20 16:00 UNV Morphine Sulfate (Morphine Sulfate Inj) 1 mg Q4H PRN IV MODERATE PAIN (PS 5-7) 10/23/20 11:25 10/23/20 23:58 DC Morphine Sulfate (Morphine Sulfate Inj) 4 mg Q3HP PRN IV SEVERE PAIN (PS 8-10) 10/24/20 00:05 Nicotine (Nicoderm Cq 21mg) 1 patch QHS TD 10/23/20 21:00 Ondansetron HCl (ZOFRAN INJection) 4 mg Q4HP PRN IV NAUSEA OR VOMITING 10/24/20 00:15 10/24/20 01:14 DC Oxycodone/ Acetaminophen (Percocet 5mg/ 325mg Tablet) 1 tab ASDIRECTED PRN PO PAIN LEVEL 1-4 10/24/20 00:15 10/24/20 01:14 DC Oxycodone/ Acetaminophen (Percocet 5mg/ 325mg Tablet) 1 tab Q4HP PRN PO MODERATE PAIN (PS 5-7) 10/24/20 00:05 Oxycodone/ Acetaminophen (Percocet 5mg/ 325mg Tablet) 2 tab Q4HP PRN PO SEVERE PAIN (PS 8-10) 10/24/20 00:05 10/24/20 01:19 Pantoprazole Sodium (Protonix) 40 mg DAILY IV 10/24/20 09:00 10/24/20 08:21 Pantoprazole Sodium (Protonix) 40 mg QHS PO 10/23/20 21:00 10/23/20 14:57 DC Sodium Chloride 1,000 ml @ 200 mls/hr Q5H IV 10/23/20 09:15 10/24/20 00:08 DC 10/23/20 11:07 Sodium Chloride (Nacl 0.9%) 1,000 ml BOLUS IV 10/23/20 03:45 10/23/20 03:46 DC 10/23/20 07:39 Vancomycin HCl 500 mg/Dextrose 110 ml @ 110 mls/hr Q8H IV 10/23/20 13:00 10/24/20 13:43 DC 10/24/20 06:45 Vancomycin HCl 750 mg/IV Miscellaneous Supplies 1 each/ Dextrose 275 ml @ 275 mls/hr Q8H IV 10/23/20 12:00 10/24/20 12:18 Vancomycin HCl 750 mg/IV Miscellaneous Supplies 1 each/ Dextrose 275 ml @ 275 mls/hr Q8H IV 10/24/20 13:00 10/24/20 14:32 Vancomycin HCl 1000 mg/IV Miscellaneous Supplies 1 each/ Dextrose 270 ml @ 270 mls/hr Q12H IV 10/23/20 07:00 10/23/20 11:01 DC Allergies Coded Allergies: carisoprodol (Verified Allergy, Intermediate, rash, 01/23/20) Jane Varghese MD Oct 24, 2020 15:32
[2020-10-24] MEDS ORDERED: ONDANSETRON 4 MG TAB PO PRN (15:50)
[2020-10-24] MEDS: METOCLOPRAMIDE INJ 10MG/2ML VIAL (J2765 PER 1) IV SCH ×2 (17:03→20:44)
[2020-10-24] MEDS: VANCOMYCIN HCL 1,000 MG, VIAL MATE ADAPTER 1 EACH in D5W 250 ML IV SCH (20:37)
[2020-10-24] MEDS: NICOTINE 21MG/24HR 1 EA TRANSDERMAL TD SCH (20:43)
[2020-10-24] MEDS: DOCUSATE SODIUM 100MG CAPSULE PO SCH (20:44)
[2020-10-24] MEDS: FERROUS SULFATE 325MG TAB PO SCH (20:44)
[2020-10-24] MEDS ORDERED: ONDANSETRON 4MG/2ML VIAL IV ONE (21:50)
[2020-10-25] VITALS (10 sets, daily range): BP systolic 108–143; BP diastolic 55–75
[2020-10-25] MEDS: IMIPENEM/CILASTATIN 1,000 MG in NS 250 ML IV SCH ×2 (01:13→08:00)
[2020-10-25] MEDS: CLINDAMYCIN 600 MG in IV 1 EA IV SCH ×2 (02:17→08:55)
[2020-10-25] MEDS ORDERED: ONDANSETRON 4MG/2ML VIAL IV ONE (02:55)
[2020-10-25] MEDS: VANCOMYCIN HCL 1,000 MG, VIAL MATE ADAPTER 1 EACH in D5W 250 ML IV SCH (03:07)
[2020-10-25] MEDS: VANCOMYCIN HCL 500 MG in D5W MINI-BAG PLUS 100 ML IV SCH (04:24)
[2020-10-25 04:42] LABS: HEMATOCRIT 32.8 % (42.0-52.0); HEMOGLOBIN 9.7 g/dl (13.5-17.5); MEAN CORPUSCULAR HEMOGLOBIN 25.5 pg (27.0-33.0); MEAN CORPUSCULAR HGB CONC 29.6 g/dl (32.0-36.5); MEAN CORPUSCULAR VOLUME 86.1 fl (80.0-96.0); PLATELET COUNT, AUTOMATED 219 10^3/uL (150-450); RED BLOOD COUNT 3.81 10^6/uL (4.30-6.10); WHITE BLOOD COUNT 13.3 10^3/uL (4.0-10.0)
[2020-10-25 05:09] LABS: ALBUMIN 1.3 GM/DL (3.2-5.2); ALT/SGPT 17 U/L (12-78); BILIRUBIN,TOTAL 0.5 MG/DL (0.2-1.0); BLOOD UREA NITROGEN 17 MG/DL (7-18); CALCIUM LEVEL 7.3 MG/DL (8.5-10.1); CARBON DIOXIDE LEVEL 29 MEQ/L (21-32); CHLORIDE LEVEL 103 MEQ/L (98-107); CREATININE FOR GFR 1.03 MG/DL (0.70-1.30); GLOMERULAR FILTRATION RATE > 60.0 (>60); GLUCOSE, FASTING 262 MG/DL (70-100); POTASSIUM SERUM 4.6 MEQ/L (3.5-5.1); SODIUM LEVEL 138 MEQ/L (136-145); TOTAL PROTEIN 4.9 GM/DL (6.4-8.2)
[2020-10-25] MEDS: ONDANSETRON 4 MG ORAL DISINTEGRATING TAB SL SCH ×4 (06:00→23:24)
[2020-10-25] MEDS: ANEXSIA, NORCO 7.5MG/325MG TABLET(HYDROCODONE/APAP) PO SCH (06:00)
[2020-10-25] MEDS: HumaLOG INSULIN (NovoLOG) PER UNIT SC SCH ×4 (06:40→21:00)
[2020-10-25] MEDS ORDERED: SUGAMMADEX SODIUM 500 MG/5 ML VIAL (BRIDION) As Ordered ONE (07:16)
[2020-10-25] MEDS ORDERED: ONDANSETRON 4MG/2ML VIAL As Ordered ONE (07:16)
[2020-10-25] MEDS ORDERED: ROCURONIUM BROMIDE 50 MG/5 ML VIAL As Ordered ONE ×2 (07:16→08:15)
[2020-10-25] MEDS ORDERED: KETOROLAC 60MG 2ML VIAL As Ordered ONE (07:16)
[2020-10-25] MEDS ORDERED: dexameTHASONE 4 MG/ML 1ML VIAL (J1100 PER 1MG) As Ordered ONE (07:16)
[2020-10-25] MEDS ORDERED: LIDOCAINE 2% 100MG/5ML SDV (FOR ANES.) As Ordered ONE (07:16)
[2020-10-25] MEDS ORDERED: ACETAMINOPHEN 1000MG 100ML IV BTL (OFIRMEV) (J0131 PER 10MG) As Ordered ONE (07:16)
[2020-10-25] MEDS ORDERED: propofoL 500 MG/50 ML VIAL As Ordered ONE (07:17)
[2020-10-25] MEDS ORDERED: KETAMINE HCL 200 MG/20 ML VIAL As Ordered ONE (07:17)
[2020-10-25] MEDS ORDERED: fentaNYL 100 MCG/2 ML INJECTION (J3010) As Ordered ONE (07:18)
[2020-10-25] MEDS ORDERED: MIDAZOLAM INJ 2MG/2ML VIAL (J2250 PER 1MG) As Ordered ONE (07:18)
--- NOTE | 2020-10-25 07:23 | IPNPDOC ---
Text Note Date of Service The patient was seen on 10/25/20. NOTE Patient seen at the preoperative holding area. He is being brought back for f urther evaluation of the soft tissue at the right groin and further debridement. He has done well postoperatively (d2) from the initial debridement for right groin necrotizing soft tissue infection of the area. Denies any severe pain. Patient appears comfortable, awake alert, oriented Lungs clear to auscultation anteriorly, bilaterally regular heart rate and rhythm Wound is covered with abd pads, will examine better once general anesthesia established. Toby's gangrene/Necrotizing soft tissue infection right lower abdominal wall, right groin to OR for reexamination and further debridement of the wound VS,Natali, I+O VS, Kristine, I+O Laboratory Tests 10/25/20 04:28 Vital Signs Date Time Temp Pulse Resp B/P (MAP) Pulse Ox O2 Delivery O2 Flow Rate FiO2 10/25/20 06:00 92 120/58 (78) 92 Room Air 2.0 10/25/20 04:00 97.8 22 10/23/20 15:57 21 I&O- Last 24 Hours up to 6 AM 10/25/20 06:00 Intake Total 5875 ml Output Total 2350 ml Balance 3525 ml MONICA SCOTT MD Oct 25, 2020 07:23
[2020-10-25] MEDS ORDERED: HumaLOG INSULIN (NovoLOG) PER UNIT As Ordered ONE (07:25)
[2020-10-25] MEDS: LACTOBACILLUS ACIDOPHILUS CAP (BACID) PO SCH ×2 (08:00→17:25)
[2020-10-25 08:21] LABS: NT-PRO BNP 1229 PG/ML (<125)
[2020-10-25] MEDS ORDERED: CLINDAMYCIN 600 MG/50 ML PREMIX BAG As Ordered ONE (08:54)
[2020-10-25] MEDS ORDERED: HumaLOG INSULIN (NovoLOG) PER UNIT SC ONE ×2 (09:15→12:00)
[2020-10-25] MEDS ORDERED: BUPIVACAINE/EPIN 0.25% 30 ML VIAL As Ordered ONE (09:33)
[2020-10-25] MEDS ORDERED: PERCOCET 5MG/325MG TAB As Ordered ONE ×2 (10:30→10:33)
[2020-10-25] MEDS: PERCOCET 5MG/325MG TAB PO PRN (10:32)
[2020-10-25] MEDS ORDERED: fentaNYL 100 MCG/2 ML INJECTION (J3010) IV PRN (11:00)
[2020-10-25] MEDS ORDERED: PERCOCET 5MG/325MG TAB PO PRN (11:00)
[2020-10-25] MEDS ORDERED: ONDANSETRON 4MG/2ML VIAL IV PRN (11:00)
[2020-10-25] MEDS ORDERED: LR 1,000 ML IV SCH (11:00)
[2020-10-25] MEDS ORDERED: METOCLOPRAMIDE INJ 10MG/2ML VIAL (J2765 PER 1) IV PRN (11:00)
--- NOTE | 2020-10-25 11:17 | REP ---
INDICATION: incr O2 demand. COMPARISON: Comparison chest x-ray 16 October 2020. TECHNIQUE: Portable upright AP chest radiograph. FINDINGS: The lungs are symmetrically aerated and free of infiltrate. The heart is not enlarged. Pleural angles are sharp. Monitoring electrodes are seen. No significant bony abnormality is seen.. IMPRESSION: No active disease. <Electronically signed by Ino Sahu > 10/25/20 [id number]
[2020-10-25] MEDS: LR 1,000 ML IV SCH ×3 (11:35→23:56)
[2020-10-25] MEDS ORDERED: VANCOMYCIN HCL 750 MG, VIAL MATE ADAPTER 1 EACH in NS 250 ML IV SCH ×7 (12:00→13:00)
[2020-10-25] MEDS: PANTOPRAZOLE 40MG VIAL (C9113 PER 1) IV SCH (12:04)
[2020-10-25] MEDS: METOCLOPRAMIDE INJ 10MG/2ML VIAL (J2765 PER 1) IV SCH ×3 (12:05→22:28)
[2020-10-25] MEDS: VANICREAM MOISTURIZING SKIN CREAM 113GM TUBE TOP SCH ×2 (12:05→22:32)
[2020-10-25] MEDS: DOCUSATE SODIUM 100MG CAPSULE PO SCH ×2 (12:06→22:29)
[2020-10-25] MEDS: LEVEMIR (INSULIN DETEMIR) 1 UNITS/0.01ML SC SCH (12:06)
[2020-10-25] MEDS: FERROUS SULFATE 325MG TAB PO SCH ×2 (12:06→22:31)
[2020-10-25] MEDS: CYANOCOBALAMIN 500 MCG TAB PO SCH (12:07)
[2020-10-25] MEDS: IBUPROFEN 800 MG TAB PO SCH ×3 (12:14→22:31)
--- NOTE | 2020-10-25 13:12 | IPNPDOC ---
Date Seen The patient was seen on 10/25/20. Progress Note SUBJECTIVE: POD 2 debridement of necrotized groin/right scrotum and perineum/buttocks, returned to OR today for additional debridement and evaluation of soft tissue. Some mild hypotension post-op; however, improved. Remains on 1 L NC. Made some adjustments to pain regimen, hopefully this helps with nausea/vomiting. Denies chest pain, shortness of breath, n/v/d. OBJECTIVE: PHYSICAL EXAMINATION: VS: Please see below GENERAL APPEARANCE: NAD, resting in bed HEENT: EOMI, PERRLA NECK: large diameter, no JVD, SUPPLE CARDIOVASCULAR: sinus rhythm, no M/R/G LUNGS: CTAB on RA, no wheezing /R/R ABDOMEN: obese abdomen, see below for skin changes MUSCULOSKELETAL: Decreased ROM of right hip-chronic, pain with movement of this joint. INTEGUMENT: + rubor, dalor and calor of the skin surrounding the lower abdomen and upper thighs- further improvement today in swelling, redness. He has a large pannus and several skin folds obscuring his groin, extensive swelling with pitting edema- improving. Chronic skin changes in the b/l lower ext, dry skin : Extensive open area from incisions along groin, under pannus. Soto catheter in place. NEUROLOGICAL: CN 1-12 intact / speech not dysarthric PSYCHIATRIC: mood and affect appropriate LABORATORY DATA: Please see below IMAGING: CXR: No acute disease CT abd/pelvis: Toby's gas gangrene involving right scrotum, inguinal region extending towards the perineum/buttock and upwards toward the flank. There is subcutaneous abscess under phlegmon. Imaging is very limited due to extreme body habitus, ring detector artifact and patient contact with the CT scanner shroud limiting [id number]. I see no other significant acute finding. MICROBIOLOGY: Abscess GS: FEW WBCS, FEW GRAM POSITIVE COCCI IN PAIRS, FEW GRAM NEGATIVE RODS Abscess Cx: pending Respiratory panel neg Blood cx NG x 2 sets UA +,UCx NG ASSESSMENT: 50 yr old w a hx of UE DVT, ARJUN, Obesity and GERD who presented w c/o severe groin pain for several weeks and admitted for sepsis 2/2 necrotizing skin i nfection of groin/right scrotum, abscess, UTI. PLAN: Shortness of breath likely multifactorial due to ARJUN, obesity hypoventilation, ? CHF -BNP elevated at 1229, drops O2 when sleeping. 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 Returned to OR today for second debridement, evaluation of soft tissue -WBC likely reactively elevated from 1st surgery at 13.3, bandemia improving, afebrile , LA wnl -CT abd/pelvis above -Abscess GS neg, Cx pending -BCx NG -C/w Imipenem, Vancomycin and Clindamycin, probiotic, pain control, wound care- Will consider deescalation of abx -General surgery (Dr. Sesay) consulted and took back to OR today. Will likely require another surgery after weekend, also likely need wound vac Hypotension likely 2/2 to sepsis , dehydration and (post-op) anesthesia -Improving -Avoid aggressive fluids if possible with elevated BNP -Keeping MAP >65 mmHg -Holding home diuretics -Tele Nausea/vomiting s/p eating, chronic issue -Possible gastroparesis vs. uncontrolled GERD? Also getting a lot of narcotics, anesthesia since admission -Keep PPI, reglan TID with meals -Stopped scheduled norco -Zofran PRN Anemia likely multifactorial for iron deficiency and Vitamin B12 -Low iron -Low Vitamin B12 -C/w supplementation today DM type II -HbA1c 8.3, BS >200- likely increased 2/2 to infection, surgery -C/w AM levemir, ISS, FS AC/HS ARJUN -nightly CPAP 10 Tobacco Abuse -Smoking cessation education / nicotine patch Class 3 obesity -BMI 72.7 complicates care -Patient was to be referred to bariatric surgery last year ;however, due to COVID this did not happen. -Would recommend f/u after d/c GERD -PPI Hx of UE DVT, DVT px -Lovenox BID Resolved issues: Acute kidney injury likely prerenal 2/2 to dehydration, sepsis Hypophosphatemia DISPOSITION: OR again likely middle of next week. PT ordered to see how patient does. General surgery following. VS, I&O, 24H, Fishbone Vital Signs/I&O Vital Signs Date Time Temp Pulse Resp B/P (MAP) Pulse Ox O2 Delivery O2 Flow Rate FiO2 10/25/20 11:02 20 94 Nasal Cannula 1.0 10/25/20 10:25 96.2 92 96/52 (67) 10/25/20 09:55 100 I&O- Last 24 Hours up to 6 AM 10/25/20 06:00 Intake Total 5875 ml Output Total 2350 ml Balance 3525 ml Laboratory Data 24H LABS Laboratory Tests 2 10/24/20 15:55: Urine Color LEYDI, Urine Appearance HAZY, Urine pH 6.0, Urine Specific [place] 1.024, Urine Protein 1+H, Urine Glucose (UA) 1+H, Urine Ketones TRACEH, Urine Blood 2+H, Urine Nitrite NEGATIVE, Urine Bilirubin 1+H, Urine Urobilinogen 4.0H, Urine Leukocyte Esterase TRACEH, Urine WBC (Auto) 21H, Urine RBC (Auto) 69H, Urine Hyaline Casts (Auto) 0, Urine Bacteria (Auto) 1+H, Urine Squamous Epithelial Cells 0, Urine Transitional Epithelial Cells 4, Urine Amorphous Sediment SMALLH, Urine Mucus (Auto) SMALL, Urine Sperm (Auto) 10/24/20 18:10: Bedside Glucose (Misc Panel) 233H 10/24/20 20:29: Bedside Glucose (Misc Panel) 214H 10/25/20 04:28: Nucleated Red Blood Cells % (auto) 0.0, Anion Gap 6L, Glomerular Filtration Rate > 60.0, Calcium Level 7.3L, Total Bilirubin 0.5, Aspartate Amino Transf (AST/SGOT) 30, Alanine Aminotransferase (ALT/SGPT) 17, Alkaline Phosphatase 47, C-Reactive Protein, Quantitative 25.70H, HS-Ktw-F-Type Natriuretic Peptide 1229H, Total Protein 4.9L, Albumin 1.3#L, Albumin/Globulin Ratio 0.4 10/25/20 11:34: Vancomycin Level Trough 17.4 10/25/20 11:51: Bedside Glucose (Misc Panel) 241H CBC/BMP Laboratory Tests 10/25/20 04:28 Microbiology Microbiology 10/25/20 Gram Stain - Final, Resulted 10/25/20 Wound Culture, Resulted Pending 10/25/20 Anaerobic Culture, Resulted Pending 10/24/20 Urine Culture - Final, Complete 10/23/20 Gram Stain - Final, Resulted 10/23/20 Abscess Culture, Resulted Pending 10/23/20 Anaerobic Culture, Resulted Pending 10/23/20 Blood Culture - Preliminary, Resulted No Growth after 48 hours. All Specime... 10/23/20 Blood Culture - Preliminary, Resulted No Growth after 48 hours. All Specime... Current Medications Current Medications Medications (Trade) Dose Ordered Sig/Alexandr Route PRN Reason Start Time Stop Time Status Last Admin Dose Admin Acetaminophen (Tylenol Tab) 650 mg Q4H PRN PO FEVER 10/23/20 03:45 10/23/20 08:02 Acetaminophen/ Hydrocodone Bitart (Anexsia, [place] 7.5mg/325mg) 1 tab Q6H PO 10/23/20 12:00 10/25/20 11:24 DC 10/24/20 23:44 Al Hydrox/Mg Hydrox/Simethicone (Mylanta) 30 ml DAILY PRN PO DYSPEPSIA 10/23/20 03:45 Albuterol Sulfate (Proventil, Ventolin Hfa) 2 puff Q4H PRN INH SHORTNESS OF BREATH 10/23/20 06:45 Apixaban (Eliquis) 5 mg BID PO 10/23/20 09:00 10/23/20 11:27 DC Ceftaroline Fosamil 600 mg/ Dextrose 50 ml @ 50 mls/hr Q12H IV 10/23/20 17:00 10/23/20 09:17 DC Ceftriaxone Sodium 2 gm/ Dextrose 50 ml @ 100 mls/hr Q24H IV 10/23/20 11:00 10/23/20 11:27 DC 10/23/20 11:10 Clindamycin Phosphate 600 mg/ IV Miscellaneous Supplies 50 ml @ 100 mls/hr Q6H IV 10/23/20 15:00 10/25/20 08:55 Cyanocobalamin (Vitamin B12) 1,000 mcg DAILY PO 10/25/20 09:00 10/25/20 12:07 Dextrose (Dextrose 50%) 25 ml ASDIRECTED PRN IV SEE LABEL COMMENTS 10/23/20 09:30 Docusate Sodium (Colace) 100 mg BID PO 10/24/20 21:00 10/25/20 12:06 Emollient Cream (Vanicream) 1 dose BID TOP 10/23/20 21:00 10/25/20 12:05 Fentanyl Citrate (Sublimaze) 25 mcg Q5MP PRN IV PAIN LEVEL 5-10 10/24/20 00:15 10/24/20 01:14 DC Fentanyl Citrate (Sublimaze) 25 mcg Q5MP PRN IV PAIN LEVEL 5-10 10/25/20 11:00 10/25/20 12:00 DC Ferrous Sulfate (Ferrous Sulfate) 325 mg BID PO 10/24/20 21:00 10/25/20 12:06 Furosemide (Lasix) 20 mg DAILY PO 10/23/20 09:00 10/23/20 11:06 DC Glucagon (Glucagon) 1 mg ASDIRECTED PRN SC SEE LABEL COMMENTS 10/23/20 09:30 Glucose (Glucose) 16 GM ASDIRECTED PRN PO SEE LABEL COMMENTS 10/23/20 09:30 Heparin Sodium (Porcine) (Heparin) 5,000 units Q8H SQ 10/23/20 14:00 10/23/20 15:06 DC Home Med (Med Rec Complete!) ASDIRECTED XX 10/23/20 04:00 10/23/20 03:53 DC Ibuprofen (Advil) 800 mg TID PO 10/25/20 09:00 10/25/20 12:14 Ibuprofen (Advil) 800 mg TID PO 10/25/20 16:00 10/25/20 11:29 DC Imipenem/ Cilastatin Sodium 1000 mg/Dextrose 100 ml @ 100 mls/hr Q6H IV 10/23/20 11:25 10/23/20 11:40 DC Imipenem/ Cilastatin Sodium 1000 mg/Sodium Chloride 250 ml @ 250 mls/hr Q6H IV 10/23/20 14:00 10/25/20 01:13 Insulin Detemir (Levemir Insulin) 10 units QAM SC 10/24/20 09:00 10/24/20 15:49 DC 10/24/20 08:21 Insulin Detemir (Levemir Insulin) 16 units QAM SC 10/25/20 09:00 10/25/20 12:06 Insulin Human Lispro (HumaLOG INSULIN) SEE PROTOCOL TABLE AC SC 10/23/20 12:00 10/23/20 14:57 DC Insulin Human Lispro (HumaLOG INSULIN) SEE PROTOCOL TABLE AC NH 10/24/20 12:00 10/25/20 07:30 Insulin Human Lispro (HumaLOG INSULIN) SEE PROTOCOL TABLE Q6H NH 10/23/20 18:00 10/24/20 10:52 DC 10/24/20 05:51 Insulin Human Lispro (HumaLOG INSULIN) SEE PROTOCOL TABLE QHS NH 10/23/20 21:00 10/23/20 14:57 DC Insulin Human Lispro (HumaLOG INSULIN) SEE PROTOCOL TABLE QHS NH 10/24/20 21:00 Ketorolac Tromethamine (ToRADol) 15 mg Q6H PRN IV moderate PAIN OR FEVER 10/23/20 12:20 10/23/20 23:58 DC Lactated Ringer's 1,000 ml @ 70 mls/hr [id number] IV 10/23/20 03:45 10/23/20 09:17 DC Lactated Ringer's 1,000 ml @ 100 mls/hr Q10H IV 10/24/20 00:05 10/25/20 11:35 Lactated Ringer's 1,000 ml @ 100 mls/hr Q10H IV 10/24/20 00:15 10/24/20 01:14 DC Lactated Ringer's 1,000 ml @ 100 mls/hr Q10H IV 10/25/20 11:00 10/25/20 12:00 DC Lactobacillus Acidophilus (Bacid) 1 ea BIDWM PO 10/23/20 18:00 10/24/20 18:11 Magnesium Hydroxide (Milk Of Magnesia) 30 ml DAILY PRN PO CONSTIPATION 10/23/20 03:45 Metoclopramide HCl (REGLAN INJection) 10 mg Q6HP PRN IV NAUSEA OR VOMITING 10/24/20 00:15 10/24/20 01:14 DC Metoclopramide HCl (REGLAN INJection) 10 mg Q6HP PRN IV NAUSEA OR VOMITING 10/25/20 11:00 10/25/20 12:00 DC Metoclopramide HCl (REGLAN INJection) 10 mg TID IV 10/24/20 16:00 10/25/20 12:05 Morphine Sulfate (Morphine Sulfate Inj) 1 mg Q4H PRN IV MODERATE PAIN (PS 5-7) 10/23/20 11:25 10/23/20 23:58 DC Morphine Sulfate (Morphine Sulfate Inj) 4 mg Q3HP PRN IV SEVERE PAIN (PS 8-10) 10/24/20 00:05 10/25/20 11:24 DC Nicotine (Nicoderm Cq 21mg) 1 patch QHS TD 10/23/20 21:00 10/24/20 20:43 Ondansetron HCl (ZOFRAN INJection) 4 mg Q4HP PRN IV NAUSEA OR VOMITING 10/24/20 00:15 10/24/20 01:14 DC Ondansetron HCl (ZOFRAN INJection) 4 mg Q4HP PRN IV NAUSEA OR VOMITING 10/25/20 11:00 10/25/20 12:00 DC Ondansetron HCl (Zofran Odt) 4 mg Q6H SL 10/25/20 06:00 10/25/20 12:07 Ondansetron HCl (Zofran) 4 mg Q6HP PRN PO NAUSEA OR VOMITING 10/24/20 15:50 Oxycodone/ Acetaminophen (Percocet 5mg/ 325mg Tablet) 1 tab ASDIRECTED PRN PO PAIN LEVEL 1-4 10/24/20 00:15 10/24/20 01:14 DC Oxycodone/ Acetaminophen (Percocet 5mg/ 325mg Tablet) 1 tab ASDIRECTED PRN PO PAIN LEVEL 1-4 10/25/20 11:00 10/25/20 12:00 DC Oxycodone/ Acetaminophen (Percocet 5mg/ 325mg Tablet) 1 tab Q4HP PRN PO MODERATE PAIN (PS 5-7) 10/24/20 00:05 Oxycodone/ Acetaminophen (Percocet 5mg/ 325mg Tablet) 2 tab Q4HP PRN PO SEVERE PAIN (PS 8-10) 10/24/20 00:05 10/25/20 10:32 Pantoprazole Sodium (Protonix) 40 mg DAILY IV 10/24/20 09:00 10/25/20 12:04 Pantoprazole Sodium (Protonix) 40 mg QHS PO 10/23/20 21:00 10/23/20 14:57 DC Sodium Chloride 1,000 ml @ 200 mls/hr Q5H IV 10/23/20 09:15 10/24/20 00:08 DC 10/23/20 11:07 Sodium Chloride (Nacl 0.9%) 1,000 ml BOLUS IV 10/23/20 03:45 10/23/20 03:46 DC 10/23/20 07:39 Vancomycin HCl 500 mg/Dextrose 110 ml @ 110 mls/hr Q8H IV 10/23/20 13:00 10/24/20 13:43 DC 10/24/20 06:45 Vancomycin HCl 500 mg/Dextrose 110 ml @ 110 mls/hr Q8H IV 10/24/20 21:00 10/25/20 09:57 DC 10/25/20 04:24 Vancomycin HCl 500 mg/Dextrose 110 ml @ 110 mls/hr Q8H IV 10/25/20 14:00 Vancomycin HCl 750 mg/IV Miscellaneous Supplies 1 each/ Dextrose 275 ml @ 275 mls/hr Q8H IV 10/23/20 12:00 10/24/20 18:37 DC 10/24/20 12:18 Vancomycin HCl 750 mg/IV Miscellaneous Supplies 1 each/ Dextrose 275 ml @ 275 mls/hr Q8H IV 10/24/20 13:00 10/24/20 18:37 DC 10/24/20 14:32 Vancomycin HCl 750 mg/IV Miscellaneous Supplies 1 each/ Sodium Chloride 275 ml @ 275 mls/hr Q8H IV 10/25/20 12:00 10/25/20 12:41 DC Vancomycin HCl 750 mg/IV Miscellaneous Supplies 1 each/ Sodium Chloride 275 ml @ 275 mls/hr Q8H IV 10/25/20 13:00 10/25/20 12:41 DC Vancomycin HCl 750 mg/IV Miscellaneous Supplies 1 each/ Sodium Chloride 275 ml @ 275 mls/hr Q8H IV 10/25/20 13:00 Vancomycin HCl 1000 mg/IV Miscellaneous Supplies 1 each/ Dextrose 270 ml @ 270 mls/hr Q12H IV 10/23/20 07:00 10/23/20 11:01 DC Vancomycin HCl 1000 mg/IV Miscellaneous Supplies 1 each/ Dextrose 270 ml @ 270 mls/hr Q8H IV 10/24/20 20:00 10/25/20 09:57 DC 10/25/20 03:07 Allergies Coded Allergies: carisoprodol (Verified Allergy, Intermediate, rash, 01/23/20) Jane Varghese MD Oct 25, 2020 13:12
[2020-10-25] MEDS ORDERED: VANCOMYCIN HCL 500 MG in D5W MINI-BAG PLUS 100 ML IV SCH (14:00)
[2020-10-25] MEDS: PIPERACILLIN/TAZOBACTAM SOD 4.5 GM in D5W MINI-BAG PLUS 50 ML IV SCH ×2 (15:00→22:27)
[2020-10-25] MEDS ORDERED: IBUPROFEN 800 MG TAB PO SCH (16:00)
[2020-10-25] MEDS: NICOTINE 21MG/24HR 1 EA TRANSDERMAL TD SCH (22:28)
[2020-10-26] MEDS: PIPERACILLIN/TAZOBACTAM SOD 4.5 GM in D5W MINI-BAG PLUS 50 ML IV SCH ×4 (03:53→21:36)
[2020-10-26] MEDS: LR 1,000 ML IV SCH ×2 (04:02→15:54)
[2020-10-26 06:00] VITALS: BP 127/67
[2020-10-26] MEDS ORDERED: CHLORASEPTIC SPRAY MT PRN (06:05)
[2020-10-26 06:54] LABS: HEMATOCRIT 32.6 % (42.0-52.0); HEMOGLOBIN 9.7 g/dl (13.5-17.5); MEAN CORPUSCULAR HEMOGLOBIN 25.4 pg (27.0-33.0); MEAN CORPUSCULAR HGB CONC 29.8 g/dl (32.0-36.5); MEAN CORPUSCULAR VOLUME 85.3 fl (80.0-96.0); PLATELET COUNT, AUTOMATED 208 10^3/uL (150-450); RED BLOOD COUNT 3.82 10^6/uL (4.30-6.10); WHITE BLOOD COUNT 10.5 10^3/uL (4.0-10.0)
[2020-10-26] MEDS: ONDANSETRON 4 MG ORAL DISINTEGRATING TAB SL SCH ×3 (07:08→17:03)
[2020-10-26 07:11] LABS: ALBUMIN 1.4 GM/DL (3.2-5.2); ALT/SGPT 17 U/L (12-78); BILIRUBIN,TOTAL 0.7 MG/DL (0.2-1.0); BLOOD UREA NITROGEN 21 MG/DL (7-18); CALCIUM LEVEL 7.3 MG/DL (8.5-10.1); CARBON DIOXIDE LEVEL 24 MEQ/L (21-32); CHLORIDE LEVEL 104 MEQ/L (98-107); CREATININE FOR GFR 1.21 MG/DL (0.70-1.30); GLOMERULAR FILTRATION RATE > 60.0 (>60); GLUCOSE, FASTING 222 MG/DL (70-100); POTASSIUM SERUM 4.4 MEQ/L (3.5-5.1); SODIUM LEVEL 136 MEQ/L (136-145); TOTAL PROTEIN 5.5 GM/DL (6.4-8.2)
[2020-10-26] MEDS: HumaLOG INSULIN (NovoLOG) PER UNIT SC SCH ×3 (07:13→17:24)
--- NOTE | 2020-10-26 07:53 | REPVR ---
PROCEDURE INFORMATION: Exam: XR Chest Exam date and time: 10/26/2020 6:52 AM Age: 50 years old Clinical indication: Device placement; Ng tube; Additional info: Confirm ng placement TECHNIQUE: Imaging protocol: XR of the chest Views: 1 view. COMPARISON: MD PORTABLE CHEST X-RAY 10/25/2020 10:49 AM FINDINGS: Tubes, catheters and devices: The feeding tube is seen with its tip in the stomach. There is a 2nd tube in the left paramediastinal space extending inferiorly than to the right. Lungs: There is low lung volume with bronchovascular crowding. There is no focal consolidation. Pleural spaces: Unremarkable. No pleural effusion. No pneumothorax. Heart/Mediastinum: Unremarkable. No cardiomegaly. Bones/joints: Unremarkable. IMPRESSION: 1. No focal consolidation. 2. Feeding tube likely with its tip in the stomach. A 2nd tube in the left paramediastinal space extending inferiorly into the right possibly external however clinical correlation is needed. Electronically signed by: Miki Gallardo On 10/26/2020 07:54:01 AM
[2020-10-26] MEDS: LACTOBACILLUS ACIDOPHILUS CAP (BACID) PO SCH ×2 (08:00→17:02)
[2020-10-26] MEDS: DOCUSATE SODIUM 100MG CAPSULE PO SCH ×2 (09:00→21:00)
[2020-10-26] MEDS: CYANOCOBALAMIN 500 MCG TAB PO SCH (09:00)
[2020-10-26] MEDS: METOCLOPRAMIDE INJ 10MG/2ML VIAL (J2765 PER 1) IV SCH ×3 (09:00→21:00)
[2020-10-26] MEDS: FERROUS SULFATE 325MG TAB PO SCH ×2 (09:00→21:00)
[2020-10-26] MEDS: IBUPROFEN 800 MG TAB PO SCH ×3 (09:00→21:00)
[2020-10-26] MEDS: LEVEMIR (INSULIN DETEMIR) 1 UNITS/0.01ML SC SCH (09:00)
[2020-10-26] MEDS: PANTOPRAZOLE 40MG VIAL (C9113 PER 1) IV SCH (09:42)
[2020-10-26] MEDS: VANICREAM MOISTURIZING SKIN CREAM 113GM TUBE TOP SCH ×2 (09:43→21:36)
--- NOTE | 2020-10-26 13:29 | IPN ---
PROGRESS NOTE DATE: 10/26/2020 SUBJECTIVE: Patient is status post debridement of abdominal wound yesterday and has been doing well without any increasing pain or discomfort. A feeding tube had been placed because the patient had some nausea and vomiting and poor oral intake; however, what he really appears to probably have is some gastric status or even possibly an ileus, given the sepsis and his nasogastric (NG) tube has been putting out some bilious output. He is not having any nausea or vomiting and his abdominal cramping and pains have resolved since having the NG tube in place. PHYSICAL EXAMINATION: His dressing is stained with serosanguineous fluid. There is still continued erythema to his pubis area and to his lower abdominal wall, although it is hard to tell if this is reactive erythema because of the significant edema in this wall or whether this is cellulitis itself. IMPRESSION/PLAN: Patient has had some debridement, seems to be making some slow but progressive improvement with the wound issues; however, still has an ileus suggestive of his NG output and his nausea and vomiting that he had, and I anticipate this may be a little while before he resolves this issue. We will see how he has some improvement over the ensuing few days. Fortunately, his white count is dropping down at this point, suggesting that we may have turned the corner with his infectious status. Will continue with supportive care at this time and I would recommend nothing by mouth at this time, NG tube to low intermittent suction, as it is, and continue with current dressing changes, as recommended.
[2020-10-26 14:00] VITALS: BP 136/77
--- NOTE | 2020-10-26 16:42 | IPNPDOC ---
Date Seen The patient was seen on 10/26/20. Progress Note SUBJECTIVE: POD 1 from second surgery for debridement of necrotized groin/right scrotum and perineum/buttocks. NG tube placed for concern of ileus with persistent n/v, poor oral intake. BP stable, pain controlled. Denies chest pain, shortness of breath, n/v/d. OBJECTIVE: PHYSICAL EXAMINATION: VS: Please see below GENERAL APPEARANCE: NAD, resting in bed HEENT: EOMI, PERRLA, NG tube in place NECK: large diameter, no JVD, SUPPLE CARDIOVASCULAR: sinus rhythm, no M/R/G LUNGS: CTAB on RA, no wheezing /R/R ABDOMEN: obese abdomen, see below for skin changes MUSCULOSKELETAL: Decreased ROM of right hip-chronic, pain with movement of this joint. INTEGUMENT: + rubor, dalor and calor of the skin surrounding the lower abdomen and upper thighs- significantly decreasead swelling, redness. He has a large pannus and several skin folds obscuring his groin, improved swelling and edema- . Chronic skin changes in the b/l lower ext, dry skin : Extensive open area from incisions along groin, under pannus. Soto catheter in place. NEUROLOGICAL: CN 1-12 intact / speech not dysarthric PSYCHIATRIC: mood and affect appropriate LABORATORY DATA: Please see below IMAGING: F/u abd xr ordered Echocardiogram 10/25/20: pending results CXR: No acute disease CT abd/pelvis: Toby's gas gangrene involving right scrotum, inguinal region extending towards the perineum/buttock and upwards toward the flank. There is subcutaneous abscess under phlegmon. Imaging is very limited due to extreme body habitus, ring detector artifact and patient contact with the CT scanner shroud limiting [id number]. I see no other significant acute finding. MICROBIOLOGY: Abscess GS 10/25/20: FEW WBCS, FEW GRAM POSITIVE COCCI IN PAIRS, FEW GRAM NEGATIVE RODS Abscess Cx 10/25/20: pending Respiratory panel neg Blood cx NG x 2 sets UA +,UCx NG ASSESSMENT: 50 yr old w a hx of UE DVT, ARJUN, Obesity and GERD who presented w c/o severe groin pain for several weeks and admitted for sepsis 2/2 necrotizing skin infection of groin/right scrotum, abscess PLAN: Shortness of breath likely multifactorial due to ARJUN, obesity hypoventilation syndrome, ? CHF -BNP elevated at 1229, drops O2 when sleeping. Received >7 L fluid since admission -Using CPAP HS, O2 with napping -Remains 95% on 1 L NC -Holding off on diuresing due to intermittent hypotension with multiple peterson rgeries -Caution with fluids going forward -IS ordered Q2h while awake -CXR: No acute disease -Echo ordered, no prior cardiac history Necrotizing skin infection of groin/right scrotum and perineum/buttocks, associated subcutaneous abscess with resolved sepsis -POD 1 from second surgery for debridement of necrotized groin/right scrotum and perineum/buttocks -WBC 10.5, afebrile, LA wnl -CT abd/pelvis above -Abscess GS above, Cx pending -BCx NG -Deescalated abx to just Zosyn. C/w probiotic, pain control, wound care -General surgery (Dr. Sesay) following. Will likely require another surgery after weekend, also likely need wound vac. Nausea/vomiting r/o ileus vs. gastroparesis vs. uncontrolled GERD. -NG tube placed overnight ;however, no imaging was ordered -C/w PPI, reglan TID with meals -F/u ABXR today -Zofran PRN Anemia likely multifactorial for iron deficiency and Vitamin B12 -Low iron -Low Vitamin B12 -C/w supplementation today DM type II likely uncontrolled 2/2 to infection, surgery -HbA1c 8.3, BS >200 -Increased AM levemir, c/w AM levemir, ISS, FS ARJUN -nightly CPAP 10 Tobacco Abuse -Smoking cessation education / nicotine patch Class 3 obesity -BMI 72.7 complicates care -Patient was to be referred to bariatric surgery last year ;however, due to COVID this did not happen. -Would recommend f/u after d/c GERD -PPI Hx of UE DVT, DVT px -Lovenox BID Resolved issues: Acute kidney injury likely prerenal 2/2 to dehydration, sepsis Hypophosphatemia Hypotension likely 2/2 to sepsis , dehydration and (post-op) anesthesia DISPOSITION: OR again likely middle of next week. PT ordered to see how patient does. General surgery following. VS, I&O, 24H, Fishbone Vital Signs/I&O Vital Signs Date Time Temp Pulse Resp B/P (MAP) Pulse Ox O2 Delivery O2 Flow Rate FiO2 10/26/20 14:00 97.8 90 18 136/77 (96) 97 Nasal Cannula 1.0 10/25/20 09:55 100 I&O- Last 24 Hours up to 6 AM 10/26/20 06:00 Intake Total 2755 ml Output Total 2950 ml Balance -195 ml Laboratory Data 24H LABS Laboratory Tests 2 10/25/20 17:16: Bedside Glucose (Misc Panel) 232H 10/25/20 20:09: Bedside Glucose (Misc Panel) 230H 10/26/20 06:39: Nucleated Red Blood Cells % (auto) 0.0, Anion Gap 8, Glomerular Filtration Rate > 60.0, Calcium Level 7.3L, Total Bilirubin 0.7, Aspartate Amino Transf (AST/SGOT) 40H, Alanine Aminotransferase (ALT/SGPT) 17, Alkaline Phosphatase 52, C-Reactive Protein, Quantitative 12.90H, Total Protein 5.5L, Albumin 1.4L, Albumin/Globulin Ratio 0.3 10/26/20 06:57: Bedside Glucose (Misc Panel) 210H CBC/BMP Laboratory Tests 10/26/20 06:39 Microbiology Microbiology 10/25/20 Gram Stain - Final, Resulted 10/25/20 Wound Culture, Resulted Pending 10/25/20 Anaerobic Culture, Resulted Pending 10/24/20 Urine Culture - Final, Complete 10/23/20 Gram Stain - Final, Resulted 10/23/20 Abscess Culture - Final, Resulted 10/23/20 Anaerobic Culture, Resulted Pending 10/23/20 Blood Culture - Preliminary, Resulted No Growth after 72 hours. All specime... 10/23/20 Blood Culture - Preliminary, Resulted No Growth after 72 hours. All specime... Current Medications Current Medications Medications (Trade) Dose Ordered Sig/Alexandr Route PRN Reason Start Time Stop Time Status Last Admin Dose Admin Acetaminophen (Tylenol Tab) 650 mg Q4H PRN PO FEVER 10/23/20 03:45 10/23/20 08:02 Acetaminophen/ Hydrocodone Bitart (Anexsia, Regina 7.5mg/325mg) 1 tab Q6H PO 10/23/20 12:00 10/25/20 11:24 DC 10/24/20 23:44 Al Hydrox/Mg Hydrox/Simethicone (Mylanta) 30 ml DAILY PRN PO DYSPEPSIA 10/23/20 03:45 Albuterol Sulfate (Proventil, Ventolin Hfa) 2 puff Q4H PRN INH SHORTNESS OF BREATH 10/23/20 06:45 Apixaban (Eliquis) 5 mg BID PO 10/23/20 09:00 10/23/20 11:27 DC Ceftaroline Fosamil 600 mg/ Dextrose 50 ml @ 50 mls/hr Q12H IV 10/23/20 17:00 10/23/20 09:17 DC Ceftriaxone Sodium 2 gm/ Dextrose 50 ml @ 100 mls/hr Q24H IV 10/23/20 11:00 10/23/20 11:27 DC 10/23/20 11:10 Clindamycin Phosphate 600 mg/ IV Miscellaneous Supplies 50 ml @ 100 mls/hr Q6H IV 10/23/20 15:00 10/25/20 14:27 DC 10/25/20 08:55 Cyanocobalamin (Vitamin B12) 1,000 mcg DAILY PO 10/25/20 09:00 10/25/20 12:07 Dextrose (Dextrose 50%) 25 ml ASDIRECTED PRN IV SEE LABEL COMMENTS 10/23/20 09:30 Docusate Sodium (Colace) 100 mg BID PO 10/24/20 21:00 10/25/20 22:29 Emollient Cream (Vanicream) 1 dose BID TOP 10/23/20 21:00 10/26/20 09:43 Fentanyl Citrate (Sublimaze) 25 mcg Q5MP PRN IV PAIN LEVEL 5-10 10/24/20 00:15 10/24/20 01:14 DC Fentanyl Citrate (Sublimaze) 25 mcg Q5MP PRN IV PAIN LEVEL 5-10 10/25/20 11:00 10/25/20 12:00 DC Ferrous Sulfate (Ferrous Sulfate) 325 mg BID PO 10/24/20 21:00 10/25/20 22:31 Furosemide (Lasix) 20 mg DAILY PO 10/23/20 09:00 10/23/20 11:06 DC Glucagon (Glucagon) 1 mg ASDIRECTED PRN SC SEE LABEL COMMENTS 10/23/20 09:30 Glucose (Glucose) 16 GM ASDIRECTED PRN PO SEE LABEL COMMENTS 10/23/20 09:30 Heparin Sodium (Porcine) (Heparin) 5,000 units Q8H SQ 10/23/20 14:00 10/23/20 15:06 DC Home Med (Med Rec Complete!) ASDIRECTED XX 10/23/20 04:00 10/23/20 03:53 DC Ibuprofen (Advil) 800 mg TID PO 10/25/20 09:00 10/25/20 22:31 Ibuprofen (Advil) 800 mg TID PO 10/25/20 16:00 10/25/20 11:29 DC Imipenem/ Cilastatin Sodium 1000 mg/Dextrose 100 ml @ 100 mls/hr Q6H IV 10/23/20 11:25 10/23/20 11:40 DC Imipenem/ Cilastatin Sodium 1000 mg/Sodium Chloride 250 ml @ 250 mls/hr Q6H IV 10/23/20 14:00 10/25/20 14:27 DC 10/25/20 01:13 Insulin Detemir (Levemir Insulin) 10 units QAM SC 10/24/20 09:00 10/24/20 15:49 DC 10/24/20 08:21 Insulin Detemir (Levemir Insulin) 16 units QAM SC 10/25/20 09:00 10/25/20 12:06 Insulin Human Lispro (HumaLOG INSULIN) SEE PROTOCOL TABLE AC [place] 10/23/20 12:00 10/23/20 14:57 DC Insulin Human Lispro (HumaLOG INSULIN) SEE PROTOCOL TABLE AC [place] 10/24/20 12:00 10/26/20 06:09 DC 10/25/20 17:26 Insulin Human Lispro (HumaLOG INSULIN) SEE PROTOCOL TABLE Q6H [place] 10/23/20 18:00 10/24/20 10:52 DC 10/24/20 05:51 Insulin Human Lispro (HumaLOG INSULIN) SEE PROTOCOL TABLE Q6H [place] 10/26/20 06:00 10/26/20 07:13 Insulin Human Lispro (HumaLOG INSULIN) SEE PROTOCOL TABLE QHS [place] 10/23/20 21:00 10/23/20 14:57 DC Insulin Human Lispro (HumaLOG INSULIN) SEE PROTOCOL TABLE QHS [place] 10/24/20 21:00 10/26/20 06:10 DC Ketorolac Tromethamine (ToRADol) 15 mg Q6H PRN IV moderate PAIN OR FEVER 10/23/20 12:20 10/23/20 23:58 DC Lactated Ringer's 1,000 ml @ 70 mls/hr [id number] IV 10/23/20 03:45 10/23/20 09:17 DC Lactated Ringer's 1,000 ml @ 100 mls/hr Q10H IV 10/24/20 00:15 10/24/20 01:14 DC Lactated Ringer's 1,000 ml @ 100 mls/hr Q10H IV 10/25/20 11:00 10/25/20 12:00 DC Lactated Ringer's 1,000 ml @ 120 mls/hr Q8H20M IV 10/24/20 00:05 10/26/20 15:54 Lactobacillus Acidophilus (Bacid) 1 ea BIDWM PO 10/23/20 18:00 10/25/20 17:25 Magnesium Hydroxide (Milk Of Magnesia) 30 ml DAILY PRN PO CONSTIPATION 10/23/20 03:45 10/25/20 22:28 Metoclopramide HCl (REGLAN INJection) 10 mg Q6HP PRN IV NAUSEA OR VOMITING 10/24/20 00:15 10/24/20 01:14 DC Metoclopramide HCl (REGLAN INJection) 10 mg Q6HP PRN IV NAUSEA OR VOMITING 10/25/20 11:00 10/25/20 12:00 DC Metoclopramide HCl (REGLAN INJection) 10 mg TID IV 10/24/20 16:00 10/25/20 22:28 Morphine Sulfate (Morphine Sulfate Inj) 1 mg Q4H PRN IV MODERATE PAIN (PS 5-7) 10/23/20 11:25 10/23/20 23:58 DC Morphine Sulfate (Morphine Sulfate Inj) 4 mg Q3HP PRN IV SEVERE PAIN (PS 8-10) 10/24/20 00:05 10/25/20 11:24 DC Nicotine (Nicoderm Cq 21mg) 1 patch QHS TD 10/23/20 21:00 10/25/20 22:28 Ondansetron HCl (ZOFRAN INJection) 4 mg Q4HP PRN IV NAUSEA OR VOMITING 10/24/20 00:15 10/24/20 01:14 DC Ondansetron HCl (ZOFRAN INJection) 4 mg Q4HP PRN IV NAUSEA OR VOMITING 10/25/20 11:00 10/25/20 12:00 DC Ondansetron HCl (Zofran Odt) 4 mg Q6H SL 10/25/20 06:00 10/26/20 12:00 Ondansetron HCl (Zofran) 4 mg Q6HP PRN PO NAUSEA OR VOMITING 10/24/20 15:50 10/25/20 15:01 Oxycodone/ Acetaminophen (Percocet 5mg/ 325mg Tablet) 1 tab ASDIRECTED PRN PO PAIN LEVEL 1-4 10/24/20 00:15 10/24/20 01:14 DC Oxycodone/ Acetaminophen (Percocet 5mg/ 325mg Tablet) 1 tab ASDIRECTED PRN PO PAIN LEVEL 1-4 10/25/20 11:00 10/25/20 12:00 DC Oxycodone/ Acetaminophen (Percocet 5mg/ 325mg Tablet) 1 tab Q4HP PRN PO MODERATE PAIN (PS 5-7) 10/24/20 00:05 Oxycodone/ Acetaminophen (Percocet 5mg/ 325mg Tablet) 2 tab Q4HP PRN PO SEVERE PAIN (PS 8-10) 10/24/20 00:05 10/25/20 10:32 Pantoprazole Sodium (Protonix) 40 mg DAILY IV 10/24/20 09:00 10/26/20 09:42 Pantoprazole Sodium (Protonix) 40 mg QHS PO 10/23/20 21:00 10/23/20 14:57 DC Phenol (Chloraseptic [place]) 1 spray Q2HP PRN MT SORE THROAT 10/26/20 06:05 Piperacillin Sod/ Tazobactam Sod 4.5 gm/Dextrose 50 ml @ 50 mls/hr Q6H IV 10/25/20 15:00 10/26/20 15:54 Sodium Chloride 1,000 ml @ 200 mls/hr Q5H IV 10/23/20 09:15 10/24/20 00:08 DC 10/23/20 11:07 Sodium Chloride (Nacl 0.9%) 1,000 ml BOLUS IV 10/23/20 03:45 10/23/20 03:46 DC 10/23/20 07:39 Vancomycin HCl 500 mg/Dextrose 110 ml @ 110 mls/hr Q8H IV 10/23/20 13:00 10/24/20 13:43 DC 10/24/20 06:45 Vancomycin HCl 500 mg/Dextrose 110 ml @ 110 mls/hr Q8H IV 10/24/20 21:00 10/25/20 09:57 DC 10/25/20 04:24 Vancomycin HCl 500 mg/Dextrose 110 ml @ 110 mls/hr Q8H IV 10/25/20 14:00 10/25/20 14:27 DC 10/25/20 14:16 Vancomycin HCl 750 mg/IV Miscellaneous Supplies 1 each/ Dextrose 275 ml @ 275 mls/hr Q8H IV 10/23/20 12:00 10/24/20 18:37 DC 10/24/20 12:18 Vancomycin HCl 750 mg/IV Miscellaneous Supplies 1 each/ Dextrose 275 ml @ 275 mls/hr Q8H IV 10/24/20 13:00 10/24/20 18:37 DC 10/24/20 14:32 Vancomycin HCl 750 mg/IV Miscellaneous Supplies 1 each/ Sodium Chloride 275 ml @ 275 mls/hr Q8H IV 10/25/20 12:00 10/25/20 12:41 DC Vancomycin HCl 750 mg/IV Miscellaneous Supplies 1 each/ Sodium Chloride 275 ml @ 275 mls/hr Q8H IV 10/25/20 13:00 10/25/20 12:41 DC Vancomycin HCl 750 mg/IV Miscellaneous Supplies 1 each/ Sodium Chloride 275 ml @ 275 mls/hr Q8H IV 10/25/20 13:00 10/25/20 14:27 DC 10/25/20 13:23 Vancomycin HCl 1000 mg/IV Miscellaneous Supplies 1 each/ Dextrose 270 ml @ 270 mls/hr Q12H IV 10/23/20 07:00 10/23/20 11:01 DC Vancomycin HCl 1000 mg/IV Miscellaneous Supplies 1 each/ Dextrose 270 ml @ 270 mls/hr Q8H IV 10/24/20 20:00 10/25/20 09:57 DC 10/25/20 03:07 Allergies Coded Allergies: carisoprodol (Verified Allergy, Intermediate, rash, 01/23/20) Jane Varghese MD Oct 26, 2020 16:42
--- NOTE | 2020-10-26 17:25 | REP ---
INDICATION: r/o ileus, SBO. COMPARISON: None. TECHNIQUE: Two supine images abdomen and pelvis. FINDINGS: Study is significantly limited due to patient body habitus. However, there is evidence diffuse moderate small bowel dilatation. Mild scattered air and fecal material seen in the colon. The findings may represent small bowel ileus versus obstruction. Note is made of metallic internal fixation of the proximal left femur. IMPRESSION: Multiple moderately dilated small bowel loops may represent small bowel ileus versus obstruction. <Electronically signed by Oziel Blackburn > 10/26/20 [id number]
[2020-10-26] MEDS: NICOTINE 21MG/24HR 1 EA TRANSDERMAL TD SCH (21:00)
[2020-10-26 22:00] VITALS: BP 131/80
[2020-10-27] MEDS: LR 1,000 ML IV SCH ×4 (00:30→23:19)
[2020-10-27] MEDS: HumaLOG INSULIN (NovoLOG) PER UNIT SC SCH ×5 (00:43→23:22)
[2020-10-27] MEDS: PIPERACILLIN/TAZOBACTAM SOD 4.5 GM in D5W MINI-BAG PLUS 50 ML IV SCH ×4 (03:58→21:16)
[2020-10-27] MEDS: ONDANSETRON 4 MG ORAL DISINTEGRATING TAB SL SCH ×5 (05:59→23:19)
[2020-10-27 06:00] VITALS: BP 131/72
[2020-10-27 06:49] LABS: HEMATOCRIT 33.1 % (42.0-52.0); HEMOGLOBIN 10.1 g/dl (13.5-17.5); MEAN CORPUSCULAR HEMOGLOBIN 26.4 pg (27.0-33.0); MEAN CORPUSCULAR HGB CONC 30.5 g/dl (32.0-36.5); MEAN CORPUSCULAR VOLUME 86.6 fl (80.0-96.0); PLATELET COUNT, AUTOMATED 303 10^3/uL (150-450); RED BLOOD COUNT 3.82 10^6/uL (4.30-6.10); WHITE BLOOD COUNT 11.6 10^3/uL (4.0-10.0)
[2020-10-27 07:25] LABS: ALBUMIN 1.5 GM/DL (3.2-5.2); ALT/SGPT 17 U/L (12-78); BILIRUBIN,TOTAL 0.6 MG/DL (0.2-1.0); BLOOD UREA NITROGEN 15 MG/DL (7-18); C REACTIVE PROTEIN QUANTITATIV 7.76 MG/DL (0.00-0.30); CALCIUM LEVEL 7.6 MG/DL (8.5-10.1); CARBON DIOXIDE LEVEL 30 MEQ/L (21-32); CHLORIDE LEVEL 104 MEQ/L (98-107); CREATININE FOR GFR 1.07 MG/DL (0.70-1.30); GLOMERULAR FILTRATION RATE > 60.0 (>60); GLUCOSE, FASTING 153 MG/DL (70-100); SODIUM LEVEL 140 MEQ/L (136-145); TOTAL PROTEIN 5.4 GM/DL (6.4-8.2)
[2020-10-27] MEDS: IBUPROFEN 800 MG TAB PO SCH ×3 (09:00→21:16)
[2020-10-27] MEDS: METOCLOPRAMIDE INJ 10MG/2ML VIAL (J2765 PER 1) IV SCH (09:00)
[2020-10-27] MEDS: LEVEMIR (INSULIN DETEMIR) 1 UNITS/0.01ML SC SCH (09:00)
[2020-10-27] MEDS: PANTOPRAZOLE 40MG VIAL (C9113 PER 1) IV SCH (09:19)
[2020-10-27] MEDS: VANICREAM MOISTURIZING SKIN CREAM 113GM TUBE TOP SCH ×2 (09:19→21:16)
--- NOTE | 2020-10-27 11:26 | IPN ---
PROGRESS NOTE DATE: 10/27/2020 SUBJECTIVE: The patient has no complaints, no significant nausea or vomiting. He has had a significant amount of GI output from his NG tube. His right groin is still draining some serosanguinous, but that is much better than it was previously. His white count remains mildly elevated. On his physical exam his abdominal wall still has 4+ pitting edema of his panus and of his pubic area and thus from his wound standpoint, I feel that the dressing that is underneath the ABD pads that I removed this morning looks much better than it did a couple days ago and overall the dressing is truly turning out to be serous now, less serosanguinous than it was previously, and the tissue that I can see is relatively healthy appearing fatty tissue. No significant granulation tissue however at this time. His second issue is NG output; still seems to be a significant amount, and initially I felt that this was secondary to gastric outlet issues, i.e., such as ileus associated with sepsis, and this still may be the case, and if we have persistence of NG output over the next 24 hours/48 hours, he may benefit from an upper GI to rule out any obstructive component, but I am not seeing true evidence of an obstruction at this time, and it is probably more of a functional issue that should resolve as his infectious process resolves. And thus at this time I would also recommend that we keep the NG tube in place and IV fluids for hydration, etc.
[2020-10-27] MEDS: LACTOBACILLUS ACIDOPHILUS CAP (BACID) PO SCH ×2 (11:53→17:48)
[2020-10-27] MEDS: CYANOCOBALAMIN 500 MCG TAB PO SCH (11:53)
[2020-10-27] MEDS: DOCUSATE SODIUM 100MG CAPSULE PO SCH ×2 (11:53→21:15)
[2020-10-27] MEDS: FERROUS SULFATE 325MG TAB PO SCH ×2 (11:54→21:15)
--- NOTE | 2020-10-27 12:57 | IPNPDOC ---
Date Seen The patient was seen on 10/27/20. Progress Note SUBJECTIVE: POD 2 from second surgery for debridement of necrotized groin/right scrotum and perineum/buttocks. NG tube still has increased o/p. Decreased swelling, erythema, drainage from incisions- slowly improving. Denies chest pain, shortness of breath, n/v/d. OBJECTIVE: PHYSICAL EXAMINATION: VS: Please see below GENERAL APPEARANCE: NAD, resting in bed HEENT: EOMI, PERRLA, NG tube in place NECK: large diameter, no JVD, SUPPLE CARDIOVASCULAR: sinus rhythm, no M/R/G LUNGS: CTAB on RA, no wheezing /R/R ABDOMEN: obese abdomen, see below for skin changes MUSCULOSKELETAL: Decreased ROM of right hip-chronic, pain with movement of this joint. INTEGUMENT: + rubor, dalor and calor of the skin surrounding the lower abdomen and upper thighs- significantly decreasead swelling, redness. He has a large pannus and several skin folds obscuring his groin, improved swelling and edema-. Chronic skin changes in the b/l lower ext, dry skin : Extensive open area from incisions along groin, under pannus. Soto catheter in place. NEUROLOGICAL: CN 1-12 intact / speech not dysarthric PSYCHIATRIC: mood and affect appropriate LABORATORY DATA: Please see below IMAGING: Abd XR: Multiple moderately dilated small bowel loops may represent small bowel ileus ve rsus obstruction. Echocardiogram 10/25/20: pending report CXR: No acute disease CT abd/pelvis: Toby's gas gangrene involving right scrotum, inguinal region extending towards the perineum/buttock and upwards toward the flank. There is subcutaneous abscess under phlegmon. Imaging is very limited due to extreme body habitus, ring detector artifact and patient contact with the CT scanner s hroud limiting [id number]. I see no other significant acute finding. MICROBIOLOGY: Abscess GS 10/25/20: FEW WBCS, FEW GRAM POSITIVE COCCI IN PAIRS, FEW GRAM NEGATIVE RODS Abscess anerobic Cx 10/25/20: pending Respiratory panel neg Blood cx NG x 2 sets UA +,UCx NG ASSESSMENT: 50 yr old w a hx of UE DVT, ARJUN, Obesity and GERD who presented w c/o severe groin pain for several weeks and admitted for sepsis 2/2 necrotizing skin infection of groin/right scrotum, abscess PLAN: Small bowel ileus vs. SBO likely post-op -Abd XR above -NG tube in place with continued high o/p -C/w PPI, NPO, NG tube to IS, IVFs -Zofran PRN Shortness of breath likely multifactorial due to ARJUN, obesity hypoventilation syndrome, ? CHF -BNP elevated at 1229, drops O2 when sleeping. -Using CPAP HS, O2 with napping -Remains 96% on 1 L NC -Holding off on diuresing due to intermittent hypotension with multiple surgeries -Caution with fluids -IS ordered Q2h while awake -CXR: No acute disease -Echo done f/u results, no prior cardiac history Necrotizing skin infection of groin/right scrotum and perineum/buttocks, associated subcutaneous abscess with resolved sepsis -POD 2 from second surgery for debridement of necrotized groin/right scrotum and perineum/buttocks -WBC 11.6, afebrile, LA wnl -CT abd/pelvis above -Abscess GS above, Cx pending -BCx NG -C/w Zosyn, probiotic, pain control, wound care -General surgery following. Will likely require another surgery after weekend, also likely need wound vac. Anemia likely multifactorial for iron deficiency and Vitamin B12 -Low iron -Low Vitamin B12 -C/w supplementation today DM type II likely uncontrolled 2/2 to infection, surgery -HbA1c 8.3, BS better controlled as infection is better controlled -C/w AM levemir, ISS, FS ARJUN -nightly CPAP 10 Tobacco Abuse -Smoking cessation education / nicotine patch Class 3 obesity -BMI 72.7 complicates care -Patient was to be referred to bariatric surgery last year ;however, due to COVI D this did not happen. -Would recommend f/u after d/c GERD -PPI Hx of UE DVT, DVT px -Lovenox BID Resolved issues: Acute kidney injury likely prerenal 2/2 to dehydration, sepsis Hypophosphatemia Hypotension likely 2/2 to sepsis , dehydration and (post-op) anesthesia DISPOSITION: OR again likely middle of next week. PT/OT. General surgery following. The patient has no complaints, no significant nausea or vomiting. He has had a significant amount of GI output from his NG tube. His right groin is still draining some serosanguinous, but that is much better than it was previously. His white count remains mildly elevated. On his physical exam his abdominal wall still has 4+ pitting edema of his panus and of his pubic area and thus from his wound standpoint, I feel that the dressing that is underneath the ABD pads that I removed this morning looks much better than it did a couple days ago and overall the dressing is truly turning out to be serous now, less serosanguinous than it was previously, and the tissue that I can see is relatively healthy appearing fatty tissue. No significant granulation tissue however at this time. His second issue is NG output; still seems to be a significant amount, and initially I felt that this was secondary to gastric outlet issues, i.e., such as ileus associated with sepsis, and this still may be the case, and if we have persistence of NG output over the next 24 hours/48 hours, he may benefit from an upper GI to rule out any obstructive component, but I am not seeing true evidence of an obstruction at this time, and it is probably more of a functional issue that should resolve as his infectious process resolves. And thus at this time I would also recommend that we keep the NG tube in place and IV fluids for hydration, etc. VS, I&O, 24H, Fishbone Vital Signs/I&O Vital Signs Date Time Temp Pulse Resp B/P (MAP) Pulse Ox O2 Delivery O2 Flow Rate FiO2 10/27/20 09:00 1.0 10/27/20 06:00 97.5 91 21 131/72 (91) 96 Nasal Cannula 10/25/20 09:55 100 I&O- Last 24 Hours up to 6 AM 10/27/20 06:00 Intake Total 2810 ml Output Total 4725 ml Balance -1915 ml Laboratory Data 24H LABS Laboratory Tests 2 10/26/20 17:03: Bedside Glucose (Misc Panel) 163H 10/27/20 00:09: Bedside Glucose (Misc Panel) 144H 10/27/20 05:29: Bedside Glucose (Misc Panel) 142H 10/27/20 06:38: Nucleated Red Blood Cells % (auto) 0.3H, Anion Gap 6L, Glomerular Filtration Rate > 60.0, Calcium Level 7.6L, Total Bilirubin 0.6, Aspartate Amino Transf (AST/SGOT) 38H, Alanine Aminotransferase (ALT/SGPT) 17, Alkaline Phosphatase 50, C-Reactive Protein, Quantitative 7.76H, Total Protein 5.4L, Albumin 1.5L, Albumin/Globulin Ratio 0.4 10/27/20 11:44: Bedside Glucose ([facility] Panel) 150H CBC/BMP Laboratory Tests 10/27/20 06:38 Microbiology Microbiology 10/25/20 Gram Stain - Final, Resulted 10/25/20 Wound Culture - Final, Resulted 10/25/20 Anaerobic Culture, Resulted Pending 10/24/20 Urine Culture - Final, Complete 10/23/20 Gram Stain - Final, Resulted 10/23/20 Abscess Culture - Final, Resulted 10/23/20 Anaerobic Culture, Resulted Pending 10/23/20 Blood Culture - Preliminary, Resulted No Growth after 72 hours. All specime... 10/23/20 Blood Culture - Preliminary, Resulted No Growth after 72 hours. All specime... Current Medications Current Medications Medications (Trade) Dose Ordered Sig/Alexandr Route PRN Reason Start Time Stop Time Status Last Admin Dose Admin Acetaminophen (Tylenol Tab) 650 mg Q4H PRN PO FEVER 10/23/20 03:45 10/23/20 08:02 Acetaminophen/ Hydrocodone Bitart (Anexsia, [place] 7.5mg/325mg) 1 tab Q6H PO 10/23/20 12:00 10/25/20 11:24 DC 10/24/20 23:44 Al Hydrox/Mg Hydrox/Simethicone (Mylanta) 30 ml DAILY PRN PO DYSPEPSIA 10/23/20 03:45 Albuterol Sulfate (Proventil, Ventolin Hfa) 2 puff Q4H PRN INH SHORTNESS OF BREATH 10/23/20 06:45 Apixaban (Eliquis) 5 mg BID PO 10/23/20 09:00 10/23/20 11:27 DC Ceftaroline Fosamil 600 mg/ Dextrose 50 ml @ 50 mls/hr Q12H IV 10/23/20 17:00 10/23/20 09:17 DC Ceftriaxone Sodium 2 gm/ Dextrose 50 ml @ 100 mls/hr Q24H IV 10/23/20 11:00 10/23/20 11:27 DC 10/23/20 11:10 Clindamycin Phosphate 600 mg/ IV Miscellaneous Supplies 50 ml @ 100 mls/hr Q6H IV 10/23/20 15:00 10/25/20 14:27 DC 10/25/20 08:55 Cyanocobalamin (Vitamin B12) 1,000 mcg DAILY PO 10/25/20 09:00 10/27/20 11:53 Dextrose (Dextrose 50%) 25 ml ASDIRECTED PRN IV SEE LABEL COMMENTS 10/23/20 09:30 Docusate Sodium (Colace) 100 mg BID PO 10/24/20 21:00 10/27/20 11:53 Emollient Cream (Vanicream) 1 dose BID TOP 10/23/20 21:00 10/27/20 09:19 Fentanyl Citrate (Sublimaze) 25 mcg Q5MP PRN IV PAIN LEVEL 5-10 10/24/20 00:15 10/24/20 01:14 DC Fentanyl Citrate (Sublimaze) 25 mcg Q5MP PRN IV PAIN LEVEL 5-10 10/25/20 11:00 10/25/20 12:00 DC Ferrous Sulfate (Ferrous Sulfate) 325 mg BID PO 10/24/20 21:00 10/27/20 11:54 Furosemide (Lasix) 20 mg DAILY PO 10/23/20 09:00 10/23/20 11:06 DC Glucagon (Glucagon) 1 mg ASDIRECTED PRN SC SEE LABEL COMMENTS 10/23/20 09:30 Glucose (Glucose) 16 GM ASDIRECTED PRN PO SEE LABEL COMMENTS 10/23/20 09:30 Heparin Sodium (Porcine) (Heparin) 5,000 units Q8H SQ 10/23/20 14:00 10/23/20 15:06 DC Home Med (Med Rec Complete!) ASDIRECTED XX 10/23/20 04:00 10/23/20 03:53 DC Ibuprofen (Advil) 800 mg TID PO 10/25/20 09:00 10/25/20 22:31 Ibuprofen (Advil) 800 mg TID PO 10/25/20 16:00 10/25/20 11:29 DC Imipenem/ Cilastatin Sodium 1000 mg/Dextrose 100 ml @ 100 mls/hr Q6H IV 10/23/20 11:25 10/23/20 11:40 DC Imipenem/ Cilastatin Sodium 1000 mg/Sodium Chloride 250 ml @ 250 mls/hr Q6H IV 10/23/20 14:00 10/25/20 14:27 DC 10/25/20 01:13 Insulin Detemir (Levemir Insulin) 10 units QAM [place] 10/24/20 09:00 10/24/20 15:49 DC 10/24/20 08:21 Insulin Detemir (Levemir Insulin) 16 units QAM [place] 10/25/20 09:00 10/26/20 16:40 DC 10/25/20 12:06 Insulin Detemir (Levemir Insulin) 20 units QAM [place] 10/27/20 09:00 Insulin Human Lispro (HumaLOG INSULIN) SEE PROTOCOL TABLE AC [place] 10/23/20 12:00 10/23/20 14:57 DC Insulin Human Lispro (HumaLOG INSULIN) SEE PROTOCOL TABLE AC [place] 10/24/20 12:00 10/26/20 06:09 DC 10/25/20 17:26 Insulin Human Lispro (HumaLOG INSULIN) SEE PROTOCOL TABLE Q6H [place] 10/23/20 18:00 10/24/20 10:52 DC 10/24/20 05:51 Insulin Human Lispro (HumaLOG INSULIN) SEE PROTOCOL TABLE Q6H [place] 10/26/20 06:00 10/27/20 11:53 Insulin Human Lispro (HumaLOG INSULIN) SEE PROTOCOL TABLE QHS [place] 10/23/20 21:00 10/23/20 14:57 DC Insulin Human Lispro (HumaLOG INSULIN) [facility] 21:00 10/26/20 06:10 DC Ketorolac Tromethamine (ToRADol) 15 mg Q6H PRN IV moderate PAIN OR FEVER 10/23/20 12:20 10/23/20 23:58 DC Lactated Ringer's 1,000 ml @ 70 mls/hr [id number] IV 10/23/20 03:45 10/23/20 09:17 DC Lactated Ringer's 1,000 ml @ 100 mls/hr Q10H IV 10/24/20 00:15 10/24/20 01:14 DC Lactated Ringer's 1,000 ml @ 100 mls/hr Q10H IV 10/25/20 11:00 10/25/20 12:00 DC Lactated Ringer's 1,000 ml @ 120 mls/hr Q8H20M IV 10/24/20 00:05 10/27/20 09:18 Lactobacillus Acidophilus (Bacid) 1 ea BIDWM PO 10/23/20 18:00 10/27/20 11:53 Magnesium Hydroxide (Milk Of Magnesia) 30 ml DAILY PRN PO CONSTIPATION 10/23/20 03:45 10/25/20 22:28 Metoclopramide HCl (REGLAN INJection) 10 mg Q6HP PRN IV NAUSEA OR VOMITING 10/24/20 00:15 10/24/20 01:14 DC Metoclopramide HCl (REGLAN INJection) 10 mg Q6HP PRN IV NAUSEA OR VOMITING 10/25/20 11:00 10/25/20 12:00 DC Metoclopramide HCl (REGLAN INJection) 10 mg TID IV 10/24/20 16:00 10/25/20 22:28 Morphine Sulfate (Morphine Sulfate Inj) 1 mg Q4H PRN IV MODERATE PAIN (PS 5-7) 10/23/20 11:25 10/23/20 23:58 DC Morphine Sulfate (Morphine Sulfate Inj) 4 mg Q3HP PRN IV SEVERE PAIN (PS 8-10) 10/24/20 00:05 10/25/20 11:24 DC Nicotine (Nicoderm Cq 21mg) 1 patch QHS TD 10/23/20 21:00 10/25/20 22:28 Ondansetron HCl (ZOFRAN INJection) 4 mg Q4HP PRN IV NAUSEA OR VOMITING 10/24/20 00:15 10/24/20 01:14 DC Ondansetron HCl (ZOFRAN INJection) 4 mg Q4HP PRN IV NAUSEA OR VOMITING 10/25/20 11:00 10/25/20 12:00 DC Ondansetron HCl (Zofran Odt) 4 mg Q6H SL 10/25/20 06:00 10/27/20 11:53 Ondansetron HCl (Zofran) 4 mg Q6HP PRN PO NAUSEA OR VOMITING 10/24/20 15:50 10/25/20 15:01 Oxycodone/ Acetaminophen (Percocet 5mg/ 325mg Tablet) 1 tab ASDIRECTED PRN PO PAIN LEVEL 1-4 10/24/20 00:15 10/24/20 01:14 DC Oxycodone/ Acetaminophen (Percocet 5mg/ 325mg Tablet) 1 tab ASDIRECTED PRN PO PAIN LEVEL 1-4 10/25/20 11:00 10/25/20 12:00 DC Oxycodone/ Acetaminophen (Percocet 5mg/ 325mg Tablet) 1 tab Q4HP PRN PO MODERATE PAIN (PS 5-7) 10/24/20 00:05 Oxycodone/ Acetaminophen (Percocet 5mg/ 325mg Tablet) 2 tab Q4HP PRN PO SEVERE PAIN (PS 8-10) 10/24/20 00:05 10/25/20 10:32 Pantoprazole Sodium (Protonix) 40 mg DAILY IV 10/24/20 09:00 10/27/20 09:19 Pantoprazole Sodium (Protonix) 40 mg QHS PO 10/23/20 21:00 10/23/20 14:57 DC Phenol (Chloraseptic [place]) 1 spray Q2HP PRN MT SORE THROAT 10/26/20 06:05 Piperacillin Sod/ Tazobactam Sod 4.5 gm/Dextrose 50 ml @ 50 mls/hr Q6H IV 10/25/20 15:00 10/27/20 09:19 Sodium Chloride 1,000 ml @ 200 mls/hr Q5H IV 10/23/20 09:15 10/24/20 00:08 DC 10/23/20 11:07 Sodium Chloride (Nacl 0.9%) 1,000 ml BOLUS IV 10/23/20 03:45 10/23/20 03:46 DC 10/23/20 07:39 Vancomycin HCl 500 mg/Dextrose 110 ml @ 110 mls/hr Q8H IV 10/23/20 13:00 10/24/20 13:43 DC 10/24/20 06:45 Vancomycin HCl 500 mg/Dextrose 110 ml @ 110 mls/hr Q8H IV 10/24/20 21:00 10/25/20 09:57 DC 10/25/20 04:24 Vancomycin HCl 500 mg/Dextrose 110 ml @ 110 mls/hr Q8H IV 10/25/20 14:00 10/25/20 14:27 DC 10/25/20 14:16 Vancomycin HCl 750 mg/IV Miscellaneous Supplies 1 each/ Dextrose 275 ml @ 275 mls/hr Q8H IV 10/23/20 12:00 10/24/20 18:37 DC 10/24/20 12:18 Vancomycin HCl 750 mg/IV Miscellaneous Supplies 1 each/ Dextrose 275 ml @ 275 mls/hr Q8H IV 10/24/20 13:00 10/24/20 18:37 DC 10/24/20 14:32 Vancomycin HCl 750 mg/IV Miscellaneous Supplies 1 each/ Sodium Chloride 275 ml @ 275 mls/hr Q8H IV 10/25/20 12:00 10/25/20 12:41 DC Vancomycin HCl 750 mg/IV Miscellaneous Supplies 1 each/ Sodium Chloride 275 ml @ 275 mls/hr Q8H IV 10/25/20 13:00 10/25/20 12:41 DC Vancomycin HCl 750 mg/IV Miscellaneous Supplies 1 each/ Sodium Chloride 275 ml @ 275 mls/hr Q8H IV 10/25/20 13:00 10/25/20 14:27 DC 10/25/20 13:23 Vancomycin HCl 1000 mg/IV Miscellaneous Supplies 1 each/ Dextrose 270 ml @ 270 mls/hr Q12H IV 10/23/20 07:00 10/23/20 11:01 DC Vancomycin HCl 1000 mg/IV Miscellaneous Supplies 1 each/ Dextrose 270 ml @ 270 mls/hr Q8H IV 10/24/20 20:00 10/25/20 09:57 DC 10/25/20 03:07 Allergies Coded Allergies: carisoprodol (Verified Allergy, Intermediate, rash, 01/23/20) Jane Varghese MD Oct 27, 2020 12:57
[2020-10-27 14:00] VITALS: BP 126/76
[2020-10-27] MEDS ORDERED: METOCLOPRAMIDE INJ 10MG/2ML VIAL (J2765 PER 1) IV PRN (14:05)
[2020-10-27 15:26] VITALS: BP 133/82
[2020-10-27] MEDS: NICOTINE 21MG/24HR 1 EA TRANSDERMAL TD SCH (21:15)
[2020-10-27 22:00] VITALS: BP 138/70
[2020-10-28] MEDS: PIPERACILLIN/TAZOBACTAM SOD 4.5 GM in D5W MINI-BAG PLUS 50 ML IV SCH ×4 (03:57→21:39)
[2020-10-28 05:21] LABS: HEMATOCRIT 34.2 % (42.0-52.0); HEMOGLOBIN 10.1 g/dl (13.5-17.5); MEAN CORPUSCULAR HGB CONC 29.5 g/dl (32.0-36.5); MEAN CORPUSCULAR VOLUME 88.1 fl (80.0-96.0); PLATELET COUNT, AUTOMATED 314 10^3/uL (150-450); RED BLOOD COUNT 3.88 10^6/uL (4.30-6.10); WHITE BLOOD COUNT 11.6 10^3/uL (4.0-10.0)
[2020-10-28 05:46] LABS: ALBUMIN 1.6 GM/DL (3.2-5.2); ALT/SGPT 19 U/L (12-78); BILIRUBIN,TOTAL 0.5 MG/DL (0.2-1.0); BLOOD UREA NITROGEN 13 MG/DL (7-18); C REACTIVE PROTEIN QUANTITATIV 6.89 MG/DL (0.00-0.30); CALCIUM LEVEL 7.4 MG/DL (8.5-10.1); CARBON DIOXIDE LEVEL 29 MEQ/L (21-32); CHLORIDE LEVEL 105 MEQ/L (98-107); CREATININE FOR GFR 0.94 MG/DL (0.70-1.30); GLOMERULAR FILTRATION RATE > 60.0 (>60); GLUCOSE, FASTING 139 MG/DL (70-100); SODIUM LEVEL 141 MEQ/L (136-145); TOTAL PROTEIN 5.7 GM/DL (6.4-8.2)
[2020-10-28 06:00] VITALS: BP 155/60
[2020-10-28] MEDS: HumaLOG INSULIN (NovoLOG) PER UNIT SC SCH ×3 (06:00→17:36)
[2020-10-28] MEDS: LR 1,000 ML IV SCH ×2 (06:26→12:05)
[2020-10-28] MEDS: ONDANSETRON 4 MG ORAL DISINTEGRATING TAB SL SCH ×3 (06:26→17:35)
[2020-10-28] MEDS: LACTOBACILLUS ACIDOPHILUS CAP (BACID) PO SCH ×2 (08:00→17:37)
[2020-10-28] MEDS: VANICREAM MOISTURIZING SKIN CREAM 113GM TUBE TOP SCH ×2 (09:00→21:41)
[2020-10-28] MEDS: LEVEMIR (INSULIN DETEMIR) 1 UNITS/0.01ML SC SCH (09:00)
[2020-10-28 09:13] LABS: NT-PRO BNP 754 PG/ML (<125)
--- NOTE | 2020-10-28 09:33 | REP ---
INDICATION: incr O2 demand, r/o aspiration pna COMPARISON: 10/26/2020 TECHNIQUE: Portable AP view of the chest FINDINGS: Nasogastric tube identified extending below the diaphragm. Evaluation is limited by underpenetration which accentuates the pulmonary vasculature. Cardiomegaly and early interstitial edema cannot be excluded. No discrete focal consolidation or obvious effusion. No pneumothorax. Skeletal structures are grossly intact. IMPRESSION: 1. Nasogastric tube below the diaphragm. 2. Limited examination cannot exclude early interstitial edema. <Electronically signed by Aaron Elizabeth > 10/28/20 0915
[2020-10-28] MEDS ORDERED: MORPHINE 10 MG/ML 1ML VIAL (J2270) IV ONE (10:00)
[2020-10-28] MEDS: CYANOCOBALAMIN 500 MCG TAB PO SCH (10:34)
[2020-10-28] MEDS: FERROUS SULFATE 325MG TAB PO SCH ×2 (10:34→21:40)
[2020-10-28] MEDS: IBUPROFEN 800 MG TAB PO SCH ×3 (10:35→21:40)
[2020-10-28] MEDS: PANTOPRAZOLE 40MG VIAL (C9113 PER 1) IV SCH (10:36)
[2020-10-28] MEDS: DOCUSATE SODIUM 100MG CAPSULE PO SCH ×2 (10:36→21:40)
--- NOTE | 2020-10-28 11:44 | ECHO ---
DATE OF PROCEDURE: 10/26/2020 Age: 50 Gender: Male Height: 6 feet 1 inch Weight: 619 pounds REFERRING PHYSICIAN: Jane Varghese M.D. INDICATION: Heart failure, unspecified. MEASUREMENTS: 2D Measurements: Left atrium 5.6 cm Aortic root 3.5 cm Intraventricular septum 1.54 cm Left ventricle diastole 5.0 cm Doppler Measurements: No aortic stenosis No aortic regurgitation Aortic valve velocity 114 cm/s LVOT velocity 68.5 cm/s No mitral regurgitation No mitral stenosis Mitral E velocity 125 cm/s Mitral A velocity 84.8 cm/s Mitral deceleration time 174 msec No tricuspid regurgitation No pulmonic regurgitation MITRAL ANNULAR TISSUE DOPPLER: Technically difficult. DESCRIPTION: Rhythm was sinus. This was a technically difficult echocardiogram, which was performed with the patient supine. No useful subcostal windows. CONCLUSIONS: 1. Moderate concentric left ventricular hypertrophy. Normal left ventricle systolic function. LVEF 60% by visual assessment. Technically difficult for complete endocardial visualization and therefore for complete regional wall motion analysis. No obvious regional wall motion abnormalities were apparent. 2. Severe left atrial dilatation. 3. Indeterminate assessment of LV diastolic function due to absence of mitral annular tissue Doppler. However, differential would be between normal LV diastolic function, which I believe would be doubtful, versus much more likely grade 2 LV diastolic dysfunction (pseudonormal LV filling pattern). 4. Normal right ventricle systolic function. 5. Very small pericardial effusion seen over the anterior right ventricle free wall. No diastolic chamber collapse. 6. Technically difficult echocardiogram. MTDD
--- NOTE | 2020-10-28 13:30 | IPNPDOC ---
Text Note Date of Service The patient was seen on 10/28/20. NOTE Gen. surgery. Dr. Scott The patient is a 50-year-old male status post emergent debridement of a necrotizing right groin soft tissue infection 10/23/[address] Scott, sta tus post incision and drainage of necrotizing fasciitis and Toby's gangrene 10/25/[address] Scott. The patient reports no nausea or vomiting. States pain has been reasonably controlled. Denies abdominal pain currently. NGT in place. Patient laying flat in bed, comfortable. He is awake, alert, and oriented. Heart RRR CTA anteriorly Abdomen obese, soft Right groin open wound with dressing removed, current measurements are 53x23 x 5cm. serosanguineous drainage noted on dressings, No active bleeding. There is no necrotic tissue currently, the wound was cleaned with Vashe soaked kerlix. Decreasing erythema and edema of the surrounding skin. The suprapubic fat pad is chronically enlarged, no fluctuance noted. No fluctuance noted in surrounding tissues. Chronic thickening of the skin. The wound is repacked and dressed with overlying Kerlix and ABD pads. extremities feet with overgrown nails and callouses. 1810/4050, -2240 NG tube 2700 WBC 11.6, hemoglobin 10.1, platelets 314 CRP 6.89, continuing to trend downward. 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 Scott. The patient's wound is repacked and redressed this morning as per Dr. Scott. IV John. Plastic surgery, Dr. Lares, consulted for any additional recommendations for rt groin wound. Continue to closely monitor. Small bowel ileus NG tube in place with 2700 mL output 10/27. Continue NPO, Continue NG tube to IS, Continue IVF PT/OT to assist with ambulation. Continue to monitor. BMI 81.9. Complicates care. VS,Fishbone, I+O VS, Fishbone, I+O Laboratory Tests 10/28/20 05:08 Vital Signs Date Time Temp Pulse Resp B/P (MAP) Pulse Ox O2 Delivery O2 Flow Rate FiO2 10/28/20 09:28 20 10/28/20 06:07 3.0 10/28/20 06:00 97.5 83 155/60 (91) 99 Nasal Cannula 10/25/20 09:55 100 I&O- Last 24 Hours up to 6 AM 10/28/20 06:00 Intake Total 950 ml Output Total 4150 ml Balance -3200 ml Preethi Mortensen Oct 28, 2020 13:30 MONICA SCOTT MD Nov 24, 2020 23:26
[2020-10-28 14:00] VITALS: BP 146/70
--- NOTE | 2020-10-28 16:23 | IPNPDOC ---
Date Seen The patient was seen on 10/28/20. Progress Note SUBJECTIVE: POD 3 from second surgery for debridement of necrotized groin/right scrotum and perineum/buttocks. NG tube still has increased o/p. Further improvement in swelling, erythema, drainage from incisions. Denies chest pain, shortness of breath, n/v/d. OBJECTIVE: PHYSICAL EXAMINATION: VS: Please see below GENERAL APPEARANCE: NAD, resting in bed HEENT: EOMI, PERRLA, NG tube in place NECK: large diameter, no JVD, SUPPLE CARDIOVASCULAR: sinus rhythm, no M/R/G LUNGS: CTAB on RA, no wheezing /R/R ABDOMEN: obese abdomen, BS + 4 quadrants, soft, nondistended, no organomegaly, nontender. MUSCULOSKELETAL: Decreased ROM of right hip-chronic, pain with movement of this joint. INTEGUMENT: lower abdomen and upper thighs- significantly decreased swelling, redness. He has a large pannus and several skin folds obscuring his groin, improved swelling and edema-. Chronic skin changes in the b/l lower ext, dry skin : Extensive open area from incisions along groin, under pannus. Soto catheter in place. NEUROLOGICAL: CN 2-12 intact / speech not dysarthric PSYCHIATRIC: mood and affect appropriate LABORATORY DATA: Please see below IMAGING: CXR 10/28/20: 1. Nasogastric tube below the diaphragm. 2. Limited examination cannot exclude early interstitial edema. Abd XR: Multiple moderately dilated small bowel loops may represent small bowel ileus versus obstruction. Echocardiogram 10/25/20: 1. Moderate concentric left ventricular hypertrophy. Normal left ventricle systolic function. LVEF 60% by visual assessment. Technically difficult for complete endocardial visualization and therefore for complete regional wall motion analysis. No obvious regional wall motion abnormalities were apparent. 2. Severe left atrial dilatation. 3. Indeterminate assessment of LV diastolic function due to absence of mitral annular tissue Doppler. However, differential would be between normal LV diastolic function, which I believe would be doubtful, versus much more likely grade 2 LV diastolic dysfunction (pseudonormal LV filling pattern). 4. Normal right ventricle systolic function. 5. Very small pericardial effusion seen over the anterior right ventricle free wall. No diastolic chamber collapse. 6. Technically difficult echocardiogram. CXR: No acute disease CT abd/pelvis: Toby's gas gangrene involving right scrotum, inguinal region extending towards the perineum/buttock and upwards toward the flank. There is subcutaneous abscess under phlegmon. Imaging is very limited due to extreme body habitus, ring detector artifact and patient contact with the CT scanner shroud limiting [id number]. I see no other significant acute finding. MICROBIOLOGY: Abscess GS 10/25/20: FEW WBCS, FEW GRAM POSITIVE COCCI IN PAIRS, FEW GRAM NEGA TIVE RODS Abscess anerobic Cx 10/25/20: pending Respiratory panel neg Blood cx NG x 2 sets UA +,UCx NG PATHOLOGY: 10/24/20: Fragments of soft tissue and skin with fat necrosis, acute inflammation and tissue necrosis ASSESSMENT: 50 yr old w a hx of UE DVT, ARJUN, Obesity and GERD who presented w c/o severe groin pain for several weeks and admitted for sepsis 2/2 necrotizing skin infection of groin/right scrotum, abscess PLAN: Small bowel ileus post-operatively -Abd XR above -NG tube in place with continued high o/p -C/w PPI, NPO, NG tube to IS, IVFs -Zofran PRN Shortness of breath likely multifactorial due to ARJUN, obesity hypoventilation syndrome, HFpEF -BNP improving, drops O2 when sleeping. -Using CPAP HS, O2 with napping -Remains 96% on 2-3 L NC -Repeat CXR today above -IS ordered Q2h while awake -Echo above -Holding off on diuresing and BB at this time due to fluctuations in blood pressure during/after surgeries, high NG tube o/p. Caution with fluids Necrotizing skin infection of groin/right scrotum and perineum/buttocks, associated subcutaneous abscess with resolved sepsis -POD 3 from second surgery for debridement of necrotized groin/right scrotum and perineum/buttocks -WBC 11.6, afebrile, LA wnl -CT abd/pelvis above -Abscess GS above, Cx pending -BCx NG -C/w Zosyn, probiotic, pain control, wound care -General surgery following. Plan is likely back to OR on 10/31/[address] Lares consulted for additional recommendations on right groin wound. Anemia likely multifactorial for iron deficiency and Vitamin B12 -Low iron -Low Vitamin B12 -C/w supplementation today DM type II likely uncontrolled 2/2 to infection, surgery -HbA1c 8.3, BS better controlled -C/w AM levemir, ISS, FS ARJUN -nightly CPAP 10 Tobacco Abuse -Smoking cessation education / nicotine patch Class 3 obesity -BMI 81.9, complicates care -Patient was to be referred to bariatric surgery last year ;however, due to COVID this did not happen. GERD -PPI Hx of UE DVT, DVT px -Lovenox BID Resolved issues: Acute kidney injury likely prerenal 2/2 to dehydration, sepsis Hypophosphatemia Hypotension likely 2/2 to sepsis , dehydration and (post-op) anesthesia DISPOSITION: OR again 10/31/20. PT/OT. General surgery following. VS, I&O, 24H, Fishbone Vital Signs/I&O Vital Signs Date Time Temp Pulse Resp B/P (MAP) Pulse Ox O2 Delivery O2 Flow Rate FiO2 10/28/20 14:00 97.3 80 18 146/70 (95) 100 Nasal Cannula 3.0 10/25/20 09:55 100 I&O- Last 24 Hours up to 6 AM 10/28/20 06:00 Intake Total 950 ml Output Total 4150 ml Balance -3200 ml Laboratory Data 24H LABS Laboratory Tests 2 10/27/20 16:42: Bedside Glucose (Misc Panel) 134H 10/27/20 23:14: Bedside Glucose (Misc Panel) 115H 10/28/20 05:08: Nucleated Red Blood Cells % (auto) 0.3H, Anion Gap 7L, Glomerular Filtration Rate > 60.0, Calcium Level 7.4L, Total Bilirubin 0.5, Aspartate Amino Transf (AST/SGOT) 35, Alanine Aminotransferase (ALT/SGPT) 19, Alkaline Phosphatase 48, C-Reactive Protein, Quantitative 6.89H, QT-Rbc-B-Type Natriuretic Peptide 754H, Total Protein 5.7L, Albumin 1.6L, Albumin/Globulin Ratio 0.4 10/28/20 12:05: Bedside Glucose (Misc Panel) 136H CBC/BMP Laboratory Tests 10/28/20 05:08 Microbiology Microbiology 10/25/20 Gram Stain - Final, Resulted 10/25/20 Wound Culture - Final, Resulted 10/25/20 Anaerobic Culture, Resulted Pending 10/24/20 Urine Culture - Final, Complete 10/23/20 Gram Stain - Final, Resulted 10/23/20 Abscess Culture - Final, Resulted Granulicatella Adiacens 10/23/20 Anaerobic Culture, Resulted Pending 10/23/20 Blood Culture - Final, Complete NO GROWTH AFTER 5 DAYS 10/23/20 Blood Culture - Final, Complete NO GROWTH AFTER 5 DAYS Current Medications Current Medications Medications (Trade) Dose Ordered Sig/Alexandr Route PRN Reason Start Time Stop Time Status Last Admin Dose Admin Acetaminophen (Tylenol Tab) 650 mg Q4H PRN PO FEVER 10/23/20 03:45 10/23/20 08:02 Acetaminophen/ Hydrocodone Bitart (Anexsia, [place] 7.5mg/325mg) 1 tab Q6H PO 10/23/20 12:00 10/25/20 11:24 DC 10/24/20 23:44 Al Hydrox/Mg Hydrox/Simethicone (Mylanta) 30 ml DAILY PRN PO DYSPEPSIA 10/23/20 03:45 Albuterol Sulfate (Proventil, Ventolin Hfa) 2 puff Q4H PRN INH SHORTNESS OF BREATH 10/23/20 06:45 Apixaban (Eliquis) 5 mg BID PO 10/23/20 09:00 10/23/20 11:27 DC Ceftaroline Fosamil 600 mg/ Dextrose 50 ml @ 50 mls/hr Q12H IV 10/23/20 17:00 10/23/20 09:17 DC Ceftriaxone Sodium 2 gm/ Dextrose 50 ml @ 100 mls/hr Q24H IV 10/23/20 11:00 10/23/20 11:27 DC 10/23/20 11:10 Clindamycin Phosphate 600 mg/ IV Miscellaneous Supplies 50 ml @ 100 mls/hr Q6H IV 10/23/20 15:00 10/25/20 14:27 DC 10/25/20 08:55 Cyanocobalamin (Vitamin B12) 1,000 mcg DAILY PO 10/25/20 09:00 10/28/20 10:34 Dextrose (Dextrose 50%) 25 ml ASDIRECTED PRN IV SEE LABEL COMMENTS 10/23/20 09:30 Docusate Sodium (Colace) 100 mg BID PO 10/24/20 21:00 10/28/20 10:36 Emollient Cream (Vanicream) 1 dose BID TOP 10/23/20 21:00 10/28/20 09:00 Fentanyl Citrate (Sublimaze) 25 mcg Q5MP PRN IV PAIN LEVEL 5-10 10/24/20 00:15 10/24/20 01:14 DC Fentanyl Citrate (Sublimaze) 25 mcg Q5MP PRN IV PAIN LEVEL 5-10 10/25/20 11:00 10/25/20 12:00 DC Ferrous Sulfate (Ferrous Sulfate) 325 mg BID PO 10/24/20 21:00 10/28/20 10:34 Furosemide (Lasix) 20 mg DAILY PO 10/23/20 09:00 10/23/20 11:06 DC Glucagon (Glucagon) 1 mg ASDIRECTED PRN SC SEE LABEL COMMENTS 10/23/20 09:30 Glucose (Glucose) 16 GM ASDIRECTED PRN PO SEE LABEL COMMENTS 10/23/20 09:30 Heparin Sodium (Porcine) (Heparin) 5,000 units Q8H SQ 10/23/20 14:00 10/23/20 15:06 DC Home Med (Med Rec Complete!) ASDIRECTED XX 10/23/20 04:00 10/23/20 03:53 DC Ibuprofen (Advil) 800 mg TID PO 10/25/20 09:00 10/28/20 10:35 Ibuprofen (Advil) 800 mg TID PO 10/25/20 16:00 10/25/20 11:29 DC Imipenem/ Cilastatin Sodium 1000 mg/Dextrose 100 ml @ 100 mls/hr Q6H IV 10/23/20 11:25 10/23/20 11:40 DC Imipenem/ Cilastatin Sodium 1000 mg/Sodium Chloride 250 ml @ 250 mls/hr Q6H IV 10/23/20 14:00 10/25/20 14:27 DC 10/25/20 01:13 Insulin Detemir (Levemir Insulin) 10 units QAM SC 10/24/20 09:00 10/24/20 15:49 DC 10/24/20 08:21 Insulin Detemir (Levemir Insulin) 16 units QAM SC 10/25/20 09:00 10/26/20 16:40 DC 10/25/20 12:06 Insulin Detemir (Levemir Insulin) 20 units QAM SC 10/27/20 09:00 Insulin Human Lispro (HumaLOG INSULIN) SEE PROTOCOL TABLE AC SC 10/23/20 12:00 10/23/20 14:57 DC Insulin Human Lispro (HumaLOG INSULIN) SEE PROTOCOL TABLE AC OH 10/24/20 12:00 10/26/20 06:09 DC 10/25/20 17:26 Insulin Human Lispro (HumaLOG INSULIN) SEE PROTOCOL TABLE Q6H OH 10/23/20 18:00 10/24/20 10:52 DC 10/24/20 05:51 Insulin Human Lispro (HumaLOG INSULIN) SEE PROTOCOL TABLE Q6H OH 10/26/20 06:00 10/27/20 11:53 Insulin Human Lispro (HumaLOG INSULIN) SEE PROTOCOL TABLE QHS [place] 10/23/20 21:00 10/23/20 14:57 DC Insulin Human Lispro (HumaLOG INSULIN) [facility] 10/24/20 21:00 10/26/20 06:10 DC Ketorolac Tromethamine (ToRADol) 15 mg Q6H PRN IV moderate PAIN OR FEVER 10/23/20 12:20 10/23/20 23:58 DC Lactated Ringer's 1,000 ml @ 70 mls/hr [id number] IV 10/23/20 03:45 10/23/20 09:17 DC Lactated Ringer's 1,000 ml @ 100 mls/hr Q10H IV 10/24/20 00:15 10/24/20 01:14 DC Lactated Ringer's 1,000 ml @ 100 mls/hr Q10H IV 10/25/20 11:00 10/25/20 12:00 DC Lactated Ringer's 1,000 ml @ 120 mls/hr Q8H20M IV 10/24/20 00:05 10/28/20 12:05 Lactobacillus Acidophilus (Bacid) 1 ea BIDWM PO 10/23/20 18:00 10/27/20 17:48 Magnesium Hydroxide (Milk Of Magnesia) 30 ml DAILY PRN PO CONSTIPATION 10/23/20 03:45 10/25/20 22:28 Metoclopramide HCl (REGLAN INJection) 10 mg Q6HP PRN IV NAUSEA OR VOMITING 10/24/20 00:15 10/24/20 01:14 DC Metoclopramide HCl (REGLAN INJection) 10 mg Q6HP PRN IV NAUSEA OR VOMITING 10/25/20 11:00 10/25/20 12:00 DC Metoclopramide HCl (REGLAN INJection) 10 mg TID IV 10/24/20 16:00 10/27/20 14:07 DC 10/25/20 22:28 Metoclopramide HCl (REGLAN INJection) 10 mg TIDP PRN IV NAUSEA OR VOMITING 10/27/20 14:05 Morphine Sulfate (Morphine Sulfate Inj) 1 mg Q4H PRN IV MODERATE PAIN (PS 5-7) 10/23/20 11:25 10/23/20 23:58 DC Morphine Sulfate (Morphine Sulfate Inj) 4 mg Q3HP PRN IV SEVERE PAIN (PS 8-10) 10/24/20 00:05 10/25/20 11:24 DC Nicotine (Nicoderm Cq 21mg) 1 patch QHS TD 10/23/20 21:00 10/27/20 21:15 Ondansetron HCl (ZOFRAN INJection) 4 mg Q4HP PRN IV NAUSEA OR VOMITING 10/24/20 00:15 10/24/20 01:14 DC Ondansetron HCl (ZOFRAN INJection) 4 mg Q4HP PRN IV NAUSEA OR VOMITING 10/25/20 11:00 10/25/20 12:00 DC Ondansetron HCl (Zofran Odt) 4 mg Q6H SL 10/25/20 06:00 10/28/20 12:04 Ondansetron HCl (Zofran) 4 mg Q6HP PRN PO NAUSEA OR VOMITING 10/24/20 15:50 10/25/20 15:01 Oxycodone/ Acetaminophen (Percocet 5mg/ 325mg Tablet) 1 tab ASDIRECTED PRN PO PAIN LEVEL 1-4 10/24/20 00:15 10/24/20 01:14 DC Oxycodone/ Acetaminophen (Percocet 5mg/ 325mg Tablet) 1 tab ASDIRECTED PRN PO PAIN LEVEL 1-4 10/25/20 11:00 10/25/20 12:00 DC Oxycodone/ Acetaminophen (Percocet 5mg/ 325mg Tablet) 1 tab Q4HP PRN PO MODERATE PAIN (PS 5-7) 10/24/20 00:05 Oxycodone/ Acetaminophen (Percocet 5mg/ 325mg Tablet) 2 tab Q4HP PRN PO SEVERE PAIN (PS 8-10) 10/24/20 00:05 10/25/20 10:32 Pantoprazole Sodium (Protonix) 40 mg DAILY IV 10/24/20 09:00 10/28/20 10:36 Pantoprazole Sodium (Protonix) 40 mg QHS PO 10/23/20 21:00 10/23/20 14:57 DC Phenol (Chloraseptic [place]) 1 spray Q2HP PRN MT SORE THROAT 10/26/20 06:05 Piperacillin Sod/ Tazobactam Sod 4.5 gm/Dextrose 50 ml @ 50 mls/hr Q6H IV 10/25/20 15:00 10/28/20 15:16 Sodium Chloride 1,000 ml @ 200 mls/hr Q5H IV 10/23/20 09:15 10/24/20 00:08 DC 10/23/20 11:07 Sodium Chloride (Nacl 0.9%) 1,000 ml BOLUS IV 10/23/20 03:45 10/23/20 03:46 DC 10/23/20 07:39 Vancomycin HCl 500 mg/Dextrose 110 ml @ 110 mls/hr Q8H IV 10/23/20 13:00 10/24/20 13:43 DC 10/24/20 06:45 Vancomycin HCl 500 mg/Dextrose 110 ml @ 110 mls/hr Q8H IV 10/24/20 21:00 10/25/20 09:57 DC 10/25/20 04:24 Vancomycin HCl 500 mg/Dextrose 110 ml @ 110 mls/hr Q8H IV 10/25/20 14:00 10/25/20 14:27 DC 10/25/20 14:16 Vancomycin HCl 750 mg/IV Miscellaneous Supplies 1 each/ Dextrose 275 ml @ 275 mls/hr Q8H IV 10/23/20 12:00 10/24/20 18:37 DC 10/24/20 12:18 Vancomycin HCl 750 mg/IV Miscellaneous Supplies 1 each/ Dextrose 275 ml @ 275 mls/hr Q8H IV 10/24/20 13:00 10/24/20 18:37 DC 10/24/20 14:32 Vancomycin HCl 750 mg/IV Miscellaneous Supplies 1 each/ Sodium Chloride 275 ml @ 275 mls/hr Q8H IV 10/25/20 12:00 10/25/20 12:41 DC Vancomycin HCl 750 mg/IV Miscellaneous Supplies 1 each/ Sodium Chloride 275 ml @ 275 mls/hr Q8H IV 10/25/20 13:00 10/25/20 12:41 DC Vancomycin HCl 750 mg/IV Miscellaneous Supplies 1 each/ Sodium Chloride 275 ml @ 275 mls/hr Q8H IV 10/25/20 13:00 10/25/20 14:27 DC 10/25/20 13:23 Vancomycin HCl 1000 mg/IV Miscellaneous Supplies 1 each/ Dextrose 270 ml @ 270 mls/hr Q12H IV 10/23/20 07:00 10/23/20 11:01 DC Vancomycin HCl 1000 mg/IV Miscellaneous Supplies 1 each/ Dextrose 270 ml @ 270 mls/hr Q8H IV 10/24/20 20:00 10/25/20 09:57 DC 10/25/20 03:07 Allergies Coded Allergies: carisoprodol (Verified Allergy, Intermediate, rash, 01/23/20) Jane Varghese MD Oct 28, 2020 16:23
[2020-10-28] MEDS: NICOTINE 21MG/24HR 1 EA TRANSDERMAL TD SCH (21:00)
[2020-10-28 21:05] VITALS: BP 131/74
[2020-10-29] MEDS: LR 1,000 ML IV SCH ×4 (00:57→23:23)
[2020-10-29] MEDS: ONDANSETRON 4 MG ORAL DISINTEGRATING TAB SL SCH ×5 (00:57→23:24)
[2020-10-29] MEDS: PIPERACILLIN/TAZOBACTAM SOD 4.5 GM in D5W MINI-BAG PLUS 50 ML IV SCH ×4 (02:29→20:02)
[2020-10-29 05:37] LABS: MEAN CORPUSCULAR HEMOGLOBIN 25.3 pg (27.0-33.0); MEAN CORPUSCULAR HGB CONC 28.6 g/dl (32.0-36.5); MEAN CORPUSCULAR VOLUME 88.6 fl (80.0-96.0); PLATELET COUNT, AUTOMATED 332 10^3/uL (150-450); RED BLOOD COUNT 3.95 10^6/uL (4.30-6.10); WHITE BLOOD COUNT 10.8 10^3/uL (4.0-10.0)
[2020-10-29] MEDS: HumaLOG INSULIN (NovoLOG) PER UNIT SC SCH ×4 (06:00→17:18)
[2020-10-29 06:01] LABS: ALBUMIN 1.8 GM/DL (3.2-5.2); ALT/SGPT 22 U/L (12-78); BILIRUBIN,TOTAL 0.6 MG/DL (0.2-1.0); BLOOD UREA NITROGEN 12 MG/DL (7-18); C REACTIVE PROTEIN QUANTITATIV 5.69 MG/DL (0.00-0.30); CALCIUM LEVEL 7.7 MG/DL (8.5-10.1); CARBON DIOXIDE LEVEL 31 MEQ/L (21-32); CHLORIDE LEVEL 104 MEQ/L (98-107); CREATININE FOR GFR 1.03 MG/DL (0.70-1.30); GLOMERULAR FILTRATION RATE > 60.0 (>60); GLUCOSE, FASTING 134 MG/DL (70-100); SODIUM LEVEL 142 MEQ/L (136-145)
[2020-10-29 06:25] VITALS: BP 107/72
[2020-10-29 08:30] VITALS: BP 124/82
[2020-10-29] MEDS: LEVEMIR (INSULIN DETEMIR) 1 UNITS/0.01ML SC SCH (09:00)
--- NOTE | 2020-10-29 09:21 | IPNPDOC ---
Text Note Date of Service The patient was seen on 10/29/20. NOTE Gen. surgery. Dr. Scott The patient is a 50-year-old male status post emergent debridement of a necrotizing right groin soft tissue infection 10/23/[address] Scott, sta tus post incision and drainage of necrotizing fasciitis and Toby's gangrene 10/25/[address] Scott. The patient reports no nausea or vomiting. States pain has been reasonably controlled. Denies abdominal pain currently. NGT in place. Patient laying flat in bed, comfortable. He is awake, alert, and oriented. Heart RRR CTA anteriorly Abdomen obese, soft Right groin open wound with dressing in place. Decreasing erythema and edema of the surrounding skin. The suprapubic fat pad is chronically enlarged, no fluctuance noted. No fluctuance noted in surrounding tissues. Chronic thickening of the skin. extremities feet with overgrown nails and callouses. 1540/3800, -2260 NG tube 1650 WBC 10.8, hemoglobin 10.0, platelets 332 CRP 5.69, continuing to trend downward. 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 Scott. Tentative plan is for additional debridement in the OR as per Dr. Scott 10/31/20. IV Zosyn. Plastic surgery, Dr. Lares, consulted for any additional recommendations for rt groin wound. Continue to closely monitor. Small bowel ileus NG tube in place with 1650 mL output yesterday. Continue NPO, Plan for trial of NG tube clamping today to see if the patient will tolerate. Continue IVF PT/OT to assist with ambulation. Patient was seen by physical therapy yesterday and was able to take a few steps at the edge of the bed. Continue to monitor. BMI 81.9. Complicates care. VS,Fishbone, I+O VS, Fishbone, I+O Laboratory Tests 10/29/20 05:18 Vital Signs Date Time Temp Pulse Resp B/P (MAP) Pulse Ox O2 Delivery O2 Flow Rate FiO2 10/29/20 08:30 96.8 87 20 124/82 (96) 99 Nasal Cannula 3.0 10/25/20 09:55 100 I&O- Last 24 Hours up to 6 AM 10/29/20 05:59 Intake Total 1540 ml Output Total 2900 ml Balance -1360 ml Preethi Mortensen Oct 29, 2020 09:21 MONICA SCOTT MD Nov 24, 2020 23:26
[2020-10-29] MEDS: LACTOBACILLUS ACIDOPHILUS CAP (BACID) PO SCH ×2 (09:52→17:18)
[2020-10-29] MEDS: FERROUS SULFATE 325MG TAB PO SCH ×2 (09:53→20:02)
[2020-10-29] MEDS: CYANOCOBALAMIN 500 MCG TAB PO SCH (09:53)
[2020-10-29] MEDS: DOCUSATE SODIUM 100MG CAPSULE PO SCH ×2 (09:53→20:02)
[2020-10-29] MEDS: IBUPROFEN 800 MG TAB PO SCH ×3 (09:53→23:24)
[2020-10-29] MEDS: PANTOPRAZOLE 40MG VIAL (C9113 PER 1) IV SCH (09:58)
[2020-10-29] MEDS: VANICREAM MOISTURIZING SKIN CREAM 113GM TUBE TOP SCH ×2 (09:59→20:02)
[2020-10-29 11:58] VITALS: BP 146/36
--- NOTE | 2020-10-29 13:13 | IPNPDOC ---
Text Note Date of Service The patient was seen on 10/29/20. NOTE SUBJECTIVE: POD 4 from second surgery for debridement of necrotized groin/right scrotum and perineum/buttocks. -NG tube still in place. -Denies chest pain, shortness of breath, n/v/d. OBJECTIVE: PHYSICAL EXAMINATION: VS: Please see below GENERAL APPEARANCE: NAD, resting in bed HEENT: EOMI, PERRLA, NG tube in place NECK: thick CARDIOVASCULAR: sinus rhythm, no M/R/G LUNGS: CTAB on RA, no wheezing /R/R ABDOMEN: obese abdomen, BS + 4 quadrants, soft, nondistended, no organomegaly, nontender. MUSCULOSKELETAL: Decreased ROM of right hip-chronic, pain with movement of this joint. INTEGUMENT: lower abdomen and upper thighs with swelling, redness. He has a large pannus and several skin folds obscuring his groin. Chronic skin changes in the b/l lower ext, dry skin : Extensive open area from incisions along groin, under pannus. Soto catheter in place. NEUROLOGICAL: CN 2-12 intact / speech not dysarthric PSYCHIATRIC: mood and affect appropriate LABORATORY DATA: Reviewed IMAGING: CXR 10/28/20: 1. Nasogastric tube below the diaphragm. 2. Limited examination cannot exclude early interstitial edema. Abd XR: Multiple moderately dilated small bowel loops may represent small bowel ileus versus obstruction. Echocardiogram 10/25/20: 1. Moderate concentric left ventricular hypertrophy. Normal left ventricle systolic function. LVEF 60% by visual assessment. Technically difficult for complete endocardial visualization and therefore for complete regional wall motion analysis. No obvious regional wall motion abnormalities were apparent. 2. Severe left atrial dilatation. 3. Indeterminate assessment of LV diastolic function due to absence of mitral annular tissue Doppler. However, differential would be between normal LV diastolic function, which I believe would be doubtful, versus much more likely grade 2 LV diastolic dysfunction (pseudonormal LV filling pattern). 4. Normal right ventricle systolic function. 5. Very small pericardial effusion seen over the anterior right ventricle free wall. No diastolic chamber collapse. 6. Technically difficult echocardiogram. CXR: No acute disease CT abd/pelvis: Toby's gas gangrene involving right scrotum, inguinal region extending towards the perineum/buttock and upwards toward the flank. There is subcutaneous abscess under phlegmon. Imaging is very limited due to extreme body habitus, ring detector artifact and patient contact with the CT scanner shroud limiting [id number]. I see no other significant acute finding. MICROBIOLOGY: Abscess GS 10/25/20: FEW WBCS, FEW GRAM POSITIVE COCCI IN PAIRS, FEW GRAM NEGATIVE RODS Abscess anerobic Cx 10/25/20: pending Respiratory panel neg Blood cx NG x 2 sets UA +,UCx NG PATHOLOGY: 10/24/20: Fragments of soft tissue and skin with fat necrosis, acute inflammation and tissue necrosis ASSESSMENT: 50 yr old w a hx of UE DVT, ARJUN, Obesity and GERD who presented w c/o severe groin pain for several weeks and admitted for sepsis 2/2 Toby's gas gangrene involving right scrotum, inguinal region extending towards the perineum/buttock and upwards toward the flank with a subcutaneous abscess. PLAN: Toby's gas gangrene involving right scrotum, inguinal region extending towards the perineum/buttock and upwards toward the flank with a subcutaneous abscess: -POD 4 from second surgery for debridement of necrotized groin/right scrotum and perineum/buttocks -WBC 10.8, afebrile -CT abd/pelvis as above -Abscess GS above, Cx pending -BCx NG -C/w Zosyn, probiotic, pain control, wound care -General surgery following. Plan is likely back to OR on 10/31/[address] Lares consulted for additional recommendations on right groin wound. 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 -C/w Zosyn, probiotic, pain control, wound care -General surgery following s/p debridement x 2. Plan is likely back to OR on 10/31/[address] Lares consulted for additional recommendations on right groin wound. Small bowel ileus post-operatively -Abd XR above -NG tube still in place, to clamp post meds, if the patient will tolerate. -Continue IVF -PT/OT -C/w PPI, NPO, NG tube to IS -Zofran PRN Shortness of breath likely multifactorial due to ARJUN, obesity hypoventilation syndrome, HFpEF -BNP improved, drops O2 when sleeping. -Using CPAP HS, O2 with napping -Remains 96% on 2-3 L NC -IS ordered Q2h while awake -Echo above -Holding off on diuresing and BB at this time due to fluctuations in blood pressure during/after surgeries, high NG tube o/p. Caution with fluids Anemia likely multifactorial for iron deficiency and Vitamin B12 -Low iron -Low Vitamin B12 -C/w supplementation DM type II likely uncontrolled 2/2 to infection, surgery -HbA1c 8.3, BS better controlled -C/w AM levemir, ISS, FS ARJUN -nightly CPAP 10 Tobacco Abuse -Smoking cessation education / nicotine patch Class 3 obesity -BMI 81.9, complicates care -Patient was to be referred to bariatric surgery last year ;however, due to COVID this did not happen. GERD -PPI Hx of UE DVT, DVT px -Lovenox BID Resolved issues: Acute kidney injury likely prerenal 2/2 to dehydration, sepsis Hypophosphatemia Hypotension likely 2/2 to sepsis , dehydration and (post-op) anesthesia DISPOSITION: OR again 10/31/20. PT/OT. General surgery following. VS,Fishbone, I+O VS, Fishbone, I+O Laboratory Tests 10/29/20 05:18 Vital Signs Date Time Temp Pulse Resp B/P (MAP) Pulse Ox O2 Delivery O2 Flow Rate FiO2 10/29/20 06:25 97.0 87 19 107/72 (84) 97 Nasal Cannula 2.0 10/25/20 09:55 100 I&O- Last 24 Hours up to 6 AM0 10/29/20 06:00 Intake Total 1540 ml Output Total 2450 ml Balance -910 ml LATOYA CHO MD Oct 29, 2020 08:56
[2020-10-29 13:48] VITALS: BP 116/78
[2020-10-29] MEDS: NICOTINE 21MG/24HR 1 EA TRANSDERMAL TD SCH (20:02)
[2020-10-29 22:00] VITALS: BP 136/61
[2020-10-30] MEDS: PIPERACILLIN/TAZOBACTAM SOD 4.5 GM in D5W MINI-BAG PLUS 50 ML IV SCH ×4 (02:46→21:12)
[2020-10-30] MEDS: ONDANSETRON 4 MG ORAL DISINTEGRATING TAB SL SCH ×4 (05:24→23:45)
[2020-10-30 05:56] LABS: C REACTIVE PROTEIN QUANTITATIV 5.92 MG/DL (0.00-0.30)
[2020-10-30 06:00] VITALS: BP 126/88
[2020-10-30] MEDS: HumaLOG INSULIN (NovoLOG) PER UNIT SC SCH ×5 (06:00→23:45)
[2020-10-30] MEDS: LACTOBACILLUS ACIDOPHILUS CAP (BACID) PO SCH ×2 (07:50→18:38)
[2020-10-30] MEDS: IBUPROFEN 800 MG TAB PO SCH ×3 (07:51→21:00)
[2020-10-30] MEDS: DOCUSATE SODIUM 100MG CAPSULE PO SCH ×2 (07:51→21:14)
[2020-10-30] MEDS: PANTOPRAZOLE 40MG VIAL (C9113 PER 1) IV SCH (07:52)
[2020-10-30] MEDS: LEVEMIR (INSULIN DETEMIR) 1 UNITS/0.01ML SC SCH (07:52)
[2020-10-30] MEDS: FERROUS SULFATE 325MG TAB PO SCH ×2 (07:52→21:14)
[2020-10-30] MEDS: CYANOCOBALAMIN 500 MCG TAB PO SCH (07:52)
[2020-10-30] MEDS: LR 1,000 ML IV SCH ×2 (07:53→16:33)
[2020-10-30] MEDS: VANICREAM MOISTURIZING SKIN CREAM 113GM TUBE TOP SCH ×2 (07:53→21:13)
[2020-10-30] MEDS: PERCOCET 5MG/325MG TAB PO PRN (07:54)
--- NOTE | 2020-10-30 09:50 | IPNPDOC ---
Text Note Date of Service The patient was seen on 10/30/20. NOTE Gen. surgery. Dr. Sesay The patient is a 50-year-old male status post emergent debridement of a necrotizing right groin soft tissue infection 10/23/[address] Sesay, status post incision and drainage of necrotizing fasciitis and Toby's gangrene 10/25/[address] Sesay. The patient reports no nausea or vomiting. States pain has been reasonably controlled. Denies abdominal pain currently. NGT in place. Reports flatus, no BM. Patient laying flat in bed, comfortable. He is awake, alert, and oriented. Heart RRR CTA anteriorly Abdomen obese, soft Right groin open wound with dressing in place. The suprapubic fat pad is children's lunchroom supervisor nically enlarged, no fluctuance noted. No fluctuance noted in surrounding tissues. Chronic thickening of the skin. extremities feet with overgrown nails and callouses. 2210/3000, -790 NG tube 2049 CRP 5.92. 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 Sesay. Tentative plan is for additional debridement in the OR as per Dr. Sesay 10/31/20. IV Zosyn. Plastic surgery, Dr. Lares, consulted for any additional recommendations for rt groin wound. Continue to closely monitor. Small bowel ileus NG tube in place, tolerated every 4 clamping and now orders for every 12 clamping which she is tolerating but still having a large amount of output from the NG tube, 2049 yesterday.. Continue NPO, IVF 120cc/hr Reviewed with Dr Sesay, MARY ANN prn Reglan and try Reglan scheduled for possible gastroparesis. PT/OT to assist with ambulation. Patient was seen by physical therapy yesterday and was able to relate 5 feet. Continue to monitor. Overgrown nails, calluses on feet bilaterally. Consulted Dr. Presley who plans to evaluate the patient later today. BMI 81.9. Complicates care. VS,Fishbone, I+O VS, Fishbone, I+O Vital Signs Date Time Temp Pulse Resp B/P (MAP) Pulse Ox O2 Delivery O2 Flow Rate FiO2 10/30/20 08:38 16 10/30/20 06:00 96.6 87 126/88 (101) 95 Nasal Cannula 3.0 10/25/20 09:55 100 I&O- Last 24 Hours up to 6 AM 10/30/20 05:59 Intake Total 2260 ml Output Total 3300 ml Balance -1040 ml Preethi Mortensen Oct 30, 2020 09:50 MONICA SESAY MD Nov 24, 2020 23:27
[2020-10-30 09:59] LABS: HEMATOCRIT 35.4 % (42.0-52.0); HEMOGLOBIN 10.2 g/dl (13.5-17.5); MEAN CORPUSCULAR HGB CONC 28.8 g/dl (32.0-36.5); MEAN CORPUSCULAR VOLUME 90.3 fl (80.0-96.0); PLATELET COUNT, AUTOMATED 340 10^3/uL (150-450); RED BLOOD COUNT 3.92 10^6/uL (4.30-6.10); WHITE BLOOD COUNT 9.8 10^3/uL (4.0-10.0)
[2020-10-30 10:21] LABS: BLOOD UREA NITROGEN 10 MG/DL (7-18); CARBON DIOXIDE LEVEL 33 MEQ/L (21-32); CHLORIDE LEVEL 104 MEQ/L (98-107); CREATININE FOR GFR 1.13 MG/DL (0.70-1.30); GLOMERULAR FILTRATION RATE > 60.0 (>60); GLUCOSE, FASTING 115 MG/DL (70-100); SODIUM LEVEL 141 MEQ/L (136-145)
[2020-10-30] MEDS: METOCLOPRAMIDE INJ 10MG/2ML VIAL (J2765 PER 1) IV SCH ×3 (11:00→21:13)
--- NOTE | 2020-10-30 12:58 | IPNPDOC ---
Text Note Date of Service The patient was seen on 10/30/20. NOTE SUBJECTIVE: -POD 5 from second surgery for debridement of necrotized groin/right scrotum and perineum/buttocks. -NG tube still in place. -Denies chest pain, shortness of breath, n/v/d. OBJECTIVE: PHYSICAL EXAMINATION: VS: Please see below GENERAL APPEARANCE: NAD, resting in bed HEENT: EOMI, PERRLA, NG tube in place NECK: thick CARDIOVASCULAR: sinus rhythm, no M/R/G LUNGS: CTAB on RA, no wheezing /R/R ABDOMEN: obese abdomen, BS + 4 quadrants, soft, nondistended, no organomegaly, nontender. MUSCULOSKELETAL: Decreased ROM of right hip-chronic, pain with movement of this joint. INTEGUMENT: lower abdomen and upper thighs with swelling, redness. He has a large pannus and several skin folds obscuring his groin. Chronic skin changes in the b/l lower ext, dry skin : Extensive open area from incisions along groin, under pannus. Soto catheter in place. NEUROLOGICAL: CN 2-12 intact / speech not dysarthric PSYCHIATRIC: mood and affect appropriate LABORATORY DATA: Reviewed. Pending AM labs. IMAGING: CXR 10/28/20: 1. Nasogastric tube below the diaphragm. 2. Limited examination cannot exclude early interstitial edema. Abd XR: Multiple moderately dilated small bowel loops may represent small bowel ileus versus obstruction. Echocardiogram 10/25/20: 1. Moderate concentric left ventricular hypertrophy. Normal left ventricle systolic function. LVEF 60% by visual assessment. Technically difficult for complete endocardial visualization and therefore for complete regional wall motion analysis. No obvious regional wall motion abnormalities were apparent. 2. Severe left atrial dilatation. 3. Indeterminate assessment of LV diastolic function due to absence of mitral annular tissue Doppler. However, differential would be between normal LV diastolic function, which I believe would be doubtful, versus much more likely grade 2 LV diastolic dysfunction (pseudonormal LV filling pattern). 4. Normal right ventricle systolic function. 5. Very small pericardial effusion seen over the anterior right ventricle free wall. No diastolic chamber collapse. 6. Technically difficult echocardiogram. CXR: No acute disease CT abd/pelvis: Toby's gas gangrene involving right scrotum, inguinal region extending towards the perineum/buttock and upwards toward the flank. There is subcutaneous abscess under phlegmon. Imaging is very limited due to extreme body habitus, ring detector artifact and patient contact with the CT scanner shroud limiting [id number]. I see no other significant acute finding. MICROBIOLOGY: Abscess GS 10/25/20: FEW WBCS, FEW GRAM POSITIVE COCCI IN PAIRS, FEW GRAM NEGATIVE RODS. 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 PLAN: Toby's gas gangrene involving right scrotum, inguinal region extending towards the perineum/buttock and upwards toward the flank with a subcutaneous abscess: -POD 5 from second surgery for debridement of necrotized groin/right scrotum and perineum/buttocks -WBC downtrended, afebrile -CT abd/pelvis as above -Abscess GS above, Cx showing FEW GRAM POSITIVE COCCI IN PAIRS, FEW GRAM NEGATIVE RODS. Granulicatela -BCx NG -C/w Zosyn, probiotic, pain control, wound care -General surgery following. Plan is likely back to OR on 10/31/[address] Lares consulted for additional recommendations on right groin wound. 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 -C/w Zosyn, probiotic, pain control, wound care -General surgery following s/p debridement x 2. Plan is likely back to OR on 10/31/[address] Lares consulted for additional recommendations on right groin wound. Small bowel ileus post-operatively -Abd XR above -NG tube still in place, having interval clamping per surgery team, however still having high output, so continues to be NPO -Continue IVF -PT/OT -C/w PPI, NPO, NG tube to IS -Zofran PRN Shortness of breath likely multifactorial due to ARJUN, obesity hypoventilation syndrome, HFpEF -BNP improved, drops O2 when sleeping. -Using CPAP HS, O2 with napping -Remains 96% on 2-3 L NC -IS ordered Q2h while awake -Echo above -Holding off on diuresing and BB at this time due to fluctuations in blood pressure during/after surgeries, high NG tube o/p. Caution with fluids Anemia likely multifactorial for iron deficiency and Vitamin B12 -Low iron -Low Vitamin B12 -C/w supplementation DM type II likely uncontrolled 2/2 to infection, surgery -HbA1c 8.3, BS better controlled -C/w AM levemir, ISS, FS ARJUN -nightly CPAP 10 Tobacco Abuse -Smoking cessation education / nicotine patch Class 3 obesity -BMI 81.9, complicates care -Patient was to be referred to bariatric surgery last year ;however, due to COVID this did not happen. GERD -PPI Hx of UE DVT, DVT px -Lovenox BID Resolved issues: Acute kidney injury likely prerenal 2/2 to dehydration, sepsis Hypophosphatemia Hypotension likely 2/2 to sepsis , dehydration and (post-op) anesthesia DISPOSITION: OR again 10/31/20. PT/OT. General surgery following. VS,Fishbone, I+O VS, Fishbone, I+O Vital Signs Date Time Temp Pulse Resp B/P (MAP) Pulse Ox O2 Delivery O2 Flow Rate FiO2 10/30/20 08:38 16 10/30/20 06:00 96.6 87 126/88 (101) 95 Nasal Cannula 3.0 10/25/20 09:55 100 I&O- Last 24 Hours up to 6 AM 10/30/20 06:00 Intake Total 2980 ml Output Total 3300 ml Balance -320 ml LATOYA CHO MD Oct 30, 2020 09:19
[2020-10-30 14:00] VITALS: BP 150/80
[2020-10-30] MEDS: NICOTINE 21MG/24HR 1 EA TRANSDERMAL TD SCH (21:00)
[2020-10-30 22:00] VITALS: BP 133/70
[2020-10-31] VITALS (9 sets, daily range): BP systolic 135–167; BP diastolic 66–87
[2020-10-31] MEDS: LR 1,000 ML IV SCH ×3 (00:42→16:43)
[2020-10-31] MEDS: METOCLOPRAMIDE INJ 10MG/2ML VIAL (J2765 PER 1) IV SCH ×4 (04:03→23:17)
[2020-10-31] MEDS: PIPERACILLIN/TAZOBACTAM SOD 4.5 GM in D5W MINI-BAG PLUS 50 ML IV SCH ×4 (04:03→20:39)
[2020-10-31] MEDS: HumaLOG INSULIN (NovoLOG) PER UNIT SC SCH (06:00)
[2020-10-31] MEDS: ONDANSETRON 4 MG ORAL DISINTEGRATING TAB SL SCH ×3 (06:24→16:53)
[2020-10-31 06:38] LABS: HEMATOCRIT 35.5 % (42.0-52.0); HEMOGLOBIN 10.2 g/dl (13.5-17.5); MEAN CORPUSCULAR HEMOGLOBIN 25.4 pg (27.0-33.0); MEAN CORPUSCULAR HGB CONC 28.7 g/dl (32.0-36.5); MEAN CORPUSCULAR VOLUME 88.5 fl (80.0-96.0); PLATELET COUNT, AUTOMATED 303 10^3/uL (150-450); RED BLOOD COUNT 4.01 10^6/uL (4.30-6.10); WHITE BLOOD COUNT 11.9 10^3/uL (4.0-10.0)
[2020-10-31 06:57] LABS: BLOOD UREA NITROGEN 9 MG/DL (7-18); C REACTIVE PROTEIN QUANTITATIV 5.43 MG/DL (0.00-0.30); CARBON DIOXIDE LEVEL 30 MEQ/L (21-32); CHLORIDE LEVEL 103 MEQ/L (98-107); CREATININE FOR GFR 1.04 MG/DL (0.70-1.30); GLOMERULAR FILTRATION RATE > 60.0 (>60); GLUCOSE, FASTING 108 MG/DL (70-100); POTASSIUM SERUM 3.8 MEQ/L (3.5-5.1); SODIUM LEVEL 140 MEQ/L (136-145)
[2020-10-31] MEDS ORDERED: BUPIVACAINE HCL 0.25% 10ML VIAL As Ordered ONE (07:13)
[2020-10-31] MEDS ORDERED: LIDOCAINE 1% MDV 20ML VIAL As Ordered ONE (07:13)
[2020-10-31] MEDS ORDERED: BUPIVACAINE/EPIN 0.25% 30 ML VIAL As Ordered ONE (07:46)
--- NOTE | 2020-10-31 07:57 | CR.PDOC ---
Plastic Surgery Consultation Date of Consultation 10/31/20 History and Physical CONSULT REPORT FOR: General surgery REASON FOR CONSULTATION: Right groin wound HISTORY OF PRESENT ILLNESS: 50 y/o male s/p extensive debridement for necrotizing fasciitis on 10/25/20. Patient much improved since the debridement. I was asked to see patient in consult to evaluate the wound. Patient seen un operating room for wound evaluation. PAST MEDICAL HISTORY: 1. Morbid obesity BMI>70, Upper extremity DVT, sleep apnea, GERD, Cellulitis, Arthritis. PAST SURGICAL HISTORY: INCLUDES: Left hip repair PREVIOUS ANESTHESIA REACTIONS: Denies ALLERGIES: Please see below. FAMILY HISTORY: Noncontributory. HOME MEDICATIONS: Please see below. REVIEW OF SYSTEMS: GENERAL: Denies chills, reports weight gain,. HEENT: Denies blurred vision and double vision. Denies ear symptoms. Denies hoarseness. NECK: Denies any neck pain. CARDIOVASCULAR: Denies chest pain and palpitations. MUSCULOSKELETAL: chronic pains. SKIN: cellulitis pannus. NEUROLOGIC: Denies headache, stroke and transient ischemic attack. PSYCHIATRIC: Denies anxiety and depression. ENDOCRINE: Denies thyroid disease. HEMATOLOGY/ONCOLOGY: Denies bleeding or clotting disorder. HEART: Denies any chest pains, palpitations, paroxysmal dyspnea, orthopnea. PULMONARY:sleep apnea GASTROINTESTINAL: Denies rectal bleeding, family history of colon cancer, constipation, diarrhea, dysphagia, heartburn and jaundice. GENITOURINARY: Denies dysuria, frequency, hematuria and nocturia. ENDOCRINE: Denies polydipsia, polyphagia, polyuria, heat or cold intolerance. PHYSICAL EXAMINATION: VITALS SIGNS: Please see below. GENERAL APPEARANCE:Patient seen, laying in bed, awake, alert, and oriented. Comfortable, in no acute distress. SKIN: Warm and moist. Extensive pannus with chronic lymphedema. Right groin with open wound [id number]. Clean tissue. No active bleeding. No residual necrosis, no odor. LUNGS: Clear to auscultation bilaterally. No wheezing appreciated. HEART: No chest wall abnormalities. Regular rate and rhythm with no murmurs appreciated. ABDOMEN: Abdomen is soft, non-tender, non-distended. EXTREMITIES: Extremities have no deformities. No edema identified. No calf tenderness. LABORATORY DATA: Please see below. IMAGING STUDIES: CT abd/pelvis IMPRESSION: Right groin open wound s/p necrotizing fasciitis. I/D today. Recommend wound vac therapy at 125mmHg. Wound is clean. Patient is clinically improving. Continue with Soto cath. Possible rectal tube will be needed. Findings discussed with patient post op. PLANS: . Vital Signs Vital Signs Date Time Temp Pulse Resp B/P (MAP) Pulse Ox O2 Delivery O2 Flow Rate FiO2 10/31/20 06:00 98.6 76 20 139/70 (93) 98 Nasal Cannula 3.0 10/25/20 09:55 100 I&Os I&O- Last 24 Hours up to 6 AM 10/31/20 06:00 Intake Total 450 ml Output Total 3400 ml Balance -2950 ml Laboratory Data Labs 24H Laboratory Tests 2 10/30/20 11:35: Bedside Glucose (Misc Panel) 105 10/30/20 18:13: Bedside Glucose (Misc Panel) 80 10/30/20 23:44: Bedside Glucose (Misc Panel) 92 10/31/20 06:03: Bedside Glucose (Misc Panel) 103 10/31/20 06:14: Nucleated Red Blood Cells % (auto) 0.0, Anion Gap 7L, Glomerular Filtration Rate > 60.0, Calcium Level 8.0L, C-Reactive Protein, Quantitative 5.43H CBC/BMP Laboratory Tests 10/31/20 06:14 Microbiology Microbiology 10/25/20 Gram Stain - Final, Resulted 10/25/20 Wound Culture - Final, Resulted 10/25/20 Anaerobic Culture - Preliminary, Resulted Granulicatella Adiacens 10/24/20 Urine Culture - Final, Complete 10/23/20 Gram Stain - Final, Resulted 10/23/20 Abscess Culture - Final, Resulted Granulicatella Adiacens 10/23/20 Anaerobic Culture, Resulted Pending 10/23/20 Blood Culture - Final, Complete NO GROWTH AFTER 5 DAYS 10/23/20 Blood Culture - Final, Complete NO GROWTH AFTER 5 DAYS Home Medications Scheduled Apixaban (Eliquis) 5 Mg Tablet, 5 MG PO BID, (Reported) Furosemide (Lasix) 20 Mg Tablet, 20 MG PO DAILY, (Reported) Hydrocodone/Acetaminophen (Hydrocodone-Acetamin 7.5-325) 1 Each Tablet, 1 TAB PO Q6H, (Reported) Omeprazole (Omeprazole) 40 Mg Capsule.dr, 40 MG PO QHS, (Reported) Scheduled PRN Albuterol Sulfate (Proair Hfa) 8.5 Gm Hfa.aer.ad, 2 PUFF INH Q4H PRN for SHORTNESS OF BREATH, (Reported) Allergies Coded Allergies: carisoprodol (Verified Allergy, Intermediate, rash, 01/23/20) SUZE DAMICO DO Oct 31, 2020 07:57
[2020-10-31] MEDS ORDERED: fentaNYL 250 MCG/5 ML INJECTION (J3010) As Ordered ONE (08:00)
[2020-10-31] MEDS ORDERED: ROCURONIUM BROMIDE 50 MG/5 ML VIAL As Ordered ONE ×2 (08:00→08:09)
[2020-10-31] MEDS ORDERED: ONDANSETRON 4MG/2ML VIAL As Ordered ONE (08:00)
[2020-10-31] MEDS ORDERED: MIDAZOLAM INJ 2MG/2ML VIAL (J2250 PER 1MG) As Ordered ONE (08:00)
[2020-10-31] MEDS ORDERED: propofoL 200 MG/20 ML VIAL As Ordered ONE (08:00)
[2020-10-31] MEDS ORDERED: GLYCOPYRROLATE INJ 0.2 MG/ML 2 ML VIAL As Ordered ONE (08:00)
[2020-10-31] MEDS ORDERED: LIDOCAINE 2% 100MG/5ML SDV (FOR ANES.) As Ordered ONE (08:00)
[2020-10-31] MEDS ORDERED: SUGAMMADEX SODIUM 500 MG/5 ML VIAL (BRIDION) As Ordered ONE (08:00)
[2020-10-31] MEDS ORDERED: dexameTHASONE 4 MG/ML 1ML VIAL (J1100 PER 1MG) As Ordered ONE (08:00)
[2020-10-31] MEDS ORDERED: SUCCINYLCHOLINE 100 MG/5 ML SYRINGE (J0330) As Ordered ONE (08:11)
--- NOTE | 2020-10-31 08:43 | CR ---
CONSULTATION DATE: 10/30/2020 REASON FOR CONSULTATION: Painful toenails HISTORY OF PRESENT ILLNESS: Wei Cordoba is a 50-year-old male who was admitted to the hospital due to right groin infection under the care of General Surgery due to necrotizing soft tissue infection of his groin and perineum. I was asked to consult him due to markedly overgrown and ingrowing toenails that are causing him discomfort. PAST MEDICAL HISTORY: The patient's past medical history is significant for: 1. Gastroesophageal reflux disease. 2. History of upper extremity DVT's. 3. Sleep apnea, on CPAP. 4. Morbid obesity. 5. Arthritis. PAST SURGICAL HISTORY: The patient's past surgical history is significant for left hip as well as groin I&D. ALLERGIES: Carisoprodol. FAMILY HISTORY: Noncontributory. REVIEW OF SYSTEMS: He denies nausea, vomiting, fever or chills in the last few days. PHYSICAL EXAMINATION: EXTREMITIES: Lower extremity examination pedal pulses are weakly palpable. There are calluses on the plantar surface of the feet, irregularly elongated, hypertrophic and ingrowing toenails x10. ASSESSMENT: This is a 50-year-old male with painful, ingrowing, mycotic nails. TREATMENT: Painful mycotic nails are dbrided. Lac-Hydrin ordered, to be applied to feet daily. The patient could follow up with me for preventative foot care in 3 months after discharge.
[2020-10-31] MEDS: DOCUSATE SODIUM 100MG CAPSULE PO SCH ×2 (10:12→20:39)
[2020-10-31] MEDS: VANICREAM MOISTURIZING SKIN CREAM 113GM TUBE TOP SCH ×2 (10:12→20:40)
[2020-10-31] MEDS: CYANOCOBALAMIN 500 MCG TAB PO SCH (10:12)
[2020-10-31] MEDS: LACTIC ACID 12% LOTION 225 GM BTL TOP SCH (10:12)
[2020-10-31] MEDS: PANTOPRAZOLE 40MG VIAL (C9113 PER 1) IV SCH (10:13)
[2020-10-31] MEDS: IBUPROFEN 800 MG TAB PO SCH ×3 (10:13→20:39)
[2020-10-31] MEDS: FERROUS SULFATE 325MG TAB PO SCH ×2 (10:13→20:37)
[2020-10-31] MEDS: LEVEMIR (INSULIN DETEMIR) 1 UNITS/0.01ML SC SCH (10:13)
[2020-10-31] MEDS: LACTOBACILLUS ACIDOPHILUS CAP (BACID) PO SCH ×2 (10:14→16:53)
--- NOTE | 2020-10-31 12:59 | IPNPDOC ---
Text Note Date of Service The patient was seen on 10/31/20. NOTE SUBJECTIVE: -POD 0 from third surgery for debridement of necrotized groin/right scrotum and perineum/buttocks. -NG tube still in place. -Denies chest pain, shortness of breath, n/v/d. OBJECTIVE: PHYSICAL EXAMINATION: VS: Please see below GENERAL APPEARANCE: NAD, resting in bed HEENT: EOMI, PERRLA, NG tube in place NECK: thick CARDIOVASCULAR: sinus rhythm, no M/R/G LUNGS: CTAB on RA, no wheezing /R/R ABDOMEN: obese abdomen, BS + 4 quadrants, soft, nondistended, no organomegaly, nontender. MUSCULOSKELETAL: Decreased ROM of right hip-chronic, pain with movement of this joint. INTEGUMENT: lower abdomen and upper thighs with swelling, redness. He has a large pannus and several skin folds obscuring his groin. Chronic skin changes in the b/l lower ext, dry skin : Extensive open area from incisions along groin, under pannus. Soto catheter in place. NEUROLOGICAL: CN 2-12 intact / speech not dysarthric PSYCHIATRIC: mood and affect appropriate LABORATORY DATA: Reviewed. IMAGING: CXR 10/28/20: 1. Nasogastric tube below the diaphragm. 2. Limited examination cannot exclude early interstitial edema. Abd XR: Multiple moderately dilated small bowel loops may represent small bowel ileus versus obstruction. Echocardiogram 10/25/20: 1. Moderate concentric left ventricular hypertrophy. Normal left ventricle systolic function. LVEF 60% by visual assessment. Technically difficult for complete endocardial visualization and therefore for complete regional wall motion analysis. No obvious regional wall motion abnormalities were apparent. 2. Severe left atrial dilatation. 3. Indeterminate assessment of LV diastolic function due to absence of mitral annular tissue Doppler. However, differential would be between normal LV diastolic function, which I believe would be doubtful, versus much more likely grade 2 LV diastolic dysfunction (pseudonormal LV filling pattern). 4. Normal right ventricle systolic function. 5. Very small pericardial effusion seen over the anterior right ventricle free wall. No diastolic chamber collapse. 6. Technically difficult echocardiogram. CXR: No acute disease CT abd/pelvis: Toby's gas gangrene involving right scrotum, inguinal region extending towards the perineum/buttock and upwards toward the flank. There is subcutaneous abscess under phlegmon. Imaging is very limited due to extreme ventura dy habitus, ring detector artifact and patient contact with the CT scanner shroud limiting [id number]. I see no other significant acute finding. MICROBIOLOGY: Abscess GS 10/25/20: FEW WBCS, FEW GRAM POSITIVE COCCI IN PAIRS, FEW GRAM NEGATIVE RODS. 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 PLAN: Toby's gas gangrene involving right scrotum, inguinal region extending towards the perineum/buttock and upwards toward the flank with a subcutaneous abscess: -POD 0 from third surgery for debridement of necrotized groin/right scrotum and perineum/buttocks -WBC downtrended, afebrile -CT abd/pelvis as above -Abscess GS above, Cx showing FEW GRAM POSITIVE COCCI IN PAIRS, FEW GRAM NEGATIVE RODS. Granulicatela -BCx NG -C/w Zosyn, probiotic, pain control, wound care -General surgery following. Dr. Lares consulted for additional recommendations on right groin wound. 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 -C/w Zosyn, probiotic, pain control, wound care -General surgery following s/p debridement x 3. Small bowel ileus post-operatively -NG tube still in place, had been having interval clamping per surgery team, however still having high output, so continues to be NPO. will have to discuss nutrition as he has been NPO for an extended period of time. -Continue IVF -PT/OT -C/w PPI, NPO, NG tube to IS -Zofran PRN Shortness of breath likely multifactorial due to ARJUN, obesity hypoventilation syndrome, HFpEF -BNP improved, drops O2 when sleeping. -Using CPAP HS, O2 with napping -Remains 96% on 2-3 L NC -IS ordered Q2h while awake -Echo above -Holding off on diuresing and BB at this time due to fluctuations in blood pressure during/after surgeries, high NG tube o/p. Caution with fluids Anemia likely multifactorial for iron deficiency and Vitamin B12 -Low iron -Low Vitamin B12 -C/w supplementation DM type II likely uncontrolled 2/2 to infection, surgery -HbA1c 8.3, BS better controlled -C/w AM levemir, ISS, FS ARJUN -nightly CPAP 10 Tobacco Abuse -Smoking cessation education / nicotine patch Class 3 obesity -BMI 81.9, complicates care -Patient was to be referred to bariatric surgery last year ;however, due to COVID this did not happen. GERD -PPI Hx of UE DVT, DVT px -Lovenox BID Resolved issues: Acute kidney injury likely prerenal 2/2 to dehydration, sepsis Hypophosphatemia Hypotension likely 2/2 to sepsis , dehydration and (post-op) anesthesia DISPOSITION: OR again 10/31/20. PT/OT. General surgery following. VS,Fishbone, I+O VS, Fishbone, I+O Laboratory Tests 10/31/20 06:14 Vital Signs Date Time Temp Pulse Resp B/P (MAP) Pulse Ox O2 Delivery O2 Flow Rate FiO2 10/31/20 11:30 98.7 89 95 165/83 (110) 94 Nasal Cannula 1.0 10/25/20 09:55 100 I&O- Last 24 Hours up to 6 AM 10/31/20 06:00 Intake Total 450 ml Output Total 3400 ml Balance -2950 ml LATOYA CHO MD Oct 31, 2020 12:59
[2020-10-31] MEDS ORDERED: GLUCAGON INJ 1MG VIAL SC PRN (19:15)
[2020-10-31] MEDS ORDERED: DEXTROSE 50% 50 ML SYRINGE IV PRN (19:15)
[2020-10-31] MEDS ORDERED: GLUCOSE 4GM CHEW TABLET PO PRN (19:15)
[2020-10-31] MEDS: ONDANSETRON 4MG/2ML VIAL IV PRN (19:59)
[2020-10-31] MEDS: NICOTINE 21MG/24HR 1 EA TRANSDERMAL TD SCH (20:40)
[2020-11-01] MEDS: ONDANSETRON 4MG/2ML VIAL IV PRN (01:06)
[2020-11-01] MEDS: LR 1,000 ML IV SCH ×3 (01:42→18:29)
[2020-11-01 02:00] VITALS: BP 118/59
[2020-11-01] MEDS: PIPERACILLIN/TAZOBACTAM SOD 4.5 GM in D5W MINI-BAG PLUS 50 ML IV SCH ×4 (02:42→20:14)
[2020-11-01 05:25] LABS: HEMATOCRIT 36.1 % (42.0-52.0); HEMOGLOBIN 10.7 g/dl (13.5-17.5); MEAN CORPUSCULAR HEMOGLOBIN 26.6 pg (27.0-33.0); MEAN CORPUSCULAR HGB CONC 29.6 g/dl (32.0-36.5); MEAN CORPUSCULAR VOLUME 89.8 fl (80.0-96.0); PLATELET COUNT, AUTOMATED 302 10^3/uL (150-450); RED BLOOD COUNT 4.02 10^6/uL (4.30-6.10); WHITE BLOOD COUNT 12.6 10^3/uL (4.0-10.0)
[2020-11-01 06:00] VITALS: BP 169/83
[2020-11-01] MEDS: HumaLOG INSULIN (NovoLOG) PER UNIT SC SCH ×4 (06:00→23:18)
[2020-11-01 06:02] LABS: CALCIUM LEVEL 8.1 MG/DL (8.5-10.1); CREATININE FOR GFR 1.51 MG/DL (0.70-1.30); GLOMERULAR FILTRATION RATE 52.8 (>60)
[2020-11-01] MEDS: METOCLOPRAMIDE INJ 10MG/2ML VIAL (J2765 PER 1) IV SCH ×4 (06:10→23:28)
[2020-11-01] MEDS: LEVEMIR (INSULIN DETEMIR) 1 UNITS/0.01ML SC SCH (08:48)
[2020-11-01] MEDS: PANTOPRAZOLE 40MG VIAL (C9113 PER 1) IV SCH (08:48)
[2020-11-01] MEDS: FERROUS SULFATE 325MG TAB PO SCH ×2 (08:49→20:14)
[2020-11-01] MEDS: LACTIC ACID 12% LOTION 225 GM BTL TOP SCH (08:49)
[2020-11-01] MEDS: CYANOCOBALAMIN 500 MCG TAB PO SCH (08:49)
[2020-11-01] MEDS: DOCUSATE SODIUM 100MG CAPSULE PO SCH (08:49)
[2020-11-01] MEDS: LACTOBACILLUS ACIDOPHILUS CAP (BACID) PO SCH ×2 (08:49→17:56)
[2020-11-01] MEDS: VANICREAM MOISTURIZING SKIN CREAM 113GM TUBE TOP SCH ×2 (08:50→20:13)
[2020-11-01] MEDS ORDERED: HumaLOG INSULIN (NovoLOG) PER UNIT SC SCH (09:00)
[2020-11-01 09:56] LABS: CLOSTRIDIUM DIFFICILE PCR NEGATIVE (NEGATIVE)
--- NOTE | 2020-11-01 10:24 | REP ---
INDICATION: worsening hypoxemia after emesis COMPARISON: 10/28/2020 TECHNIQUE: Portable AP view of the chest FINDINGS: The mediastinum and cardiac silhouette are stable and within normal limits for portable technique. The lung lackey are clear without acute consolidation, effusion, or pneumothorax. Skeletal structures are intact. IMPRESSION: No focal consolidation or effusion. No pneumothorax. <Electronically signed by Aaron Elizabeth > 11/01/20 1020
--- NOTE | 2020-11-01 11:40 | IPNPDOC ---
Text Note Date of Service The patient was seen on 11/01/20. NOTE Gen. surgery. Dr. Scott The patient is a 50-year-old male status post emergent debridement of a necrotizing right groin soft tissue infection 10/23/[address] Scott, sta tus post incision and drainage of necrotizing fasciitis and Toby's gangrene 10/25/[address] Scott. The patient had nausea and emesis 4 last evening. Denies nausea this morning. He reports diarrhea 4 last evening and 9 today. Denies abdominal pain currently. Patient laying flat in bed, comfortable. He is awake, alert, and oriented. Heart RRR CTA anteriorly Abdomen obese, soft Right groin with wound VAC intact, suction was decreased at 75 on exam and there is an indication of an air leak therefore the wound VAC dressing was reinforced to help reduce any air leakage. Currently suctioning at 125. The suprapubic fat pad is chronically enlarged, no fluctuance noted. No fluctuance noted in surrounding tissues. Chronic thickening of the skin. There is some erythema of the abdominal and groin folds on the left and across the suprapubic area, with increased moisture. WBC 12.6, hemoglobin 10.7, platelets 302 Serum creatinine 1.51, GFR 52.8 C. difficile negative A/P Necrotizing fasciitis and Toby's gangrene status post debridement 3, wound VAC applied in OR 10/31/[address] Scott. Wound VAC reinforced this morning related to some air leakage. Apply interdry to groin and abdomen folds to decrease moisture. IV Zosyn. Continue to monitor. Small bowel ileus NGT was removed and patient was tried on full liquids yesterday, but had nausea and vomiting last evening and diarrhea last evening and today. Today, the patient reports no nausea or vomiting. Plan is to try clear liquids today. IVF 120cc/hr Continue Reglan scheduled for possible gastroparesis. Continue to monitor. BMI 81.3. Complicates care. VS,Fishbone, I+O VS, Fishbone, I+O Laboratory Tests 11/01/20 05:03 Vital Signs Date Time Temp Pulse Resp B/P (MAP) Pulse Ox O2 Delivery O2 Flow Rate FiO2 11/01/20 06:00 98.1 99 20 169/83 (111) 93 Venturi Mask 3.0 I&O- Last 24 Hours up to 6 AM 11/01/20 06:00 Intake Total 3750 ml Output Total 2920 ml Balance 830 ml Preethi Mortensen Nov 01, 2020 11:40 MONICA SCOTT MD Nov 24, 2020 23:27
--- NOTE | 2020-11-01 11:50 | IPNPDOC ---
Text Note Date of Service The patient was seen on 11/01/20. NOTE SUBJECTIVE: -POD 1 from third surgery for debridement of necrotized groin/right scrotum and perineum/buttocks. -NG tube was removed by surgery yesterday and had full liquid diet for dinner that was c/b acute nausea and emesis of ~1L and mildly worsening hypoxemia. Made NPO for the rest of the night and on reglan standing and zofran PRN. -Denies chest pain, shortness of breath OBJECTIVE: VS: Please see below GENERAL APPEARANCE: NAD, resting in bed HEENT: EOMI, PERRLA, NG tube in place NECK: thick CARDIOVASCULAR: sinus rhythm, no M/R/G LUNGS: CTAB on RA, no wheezing, some rhonchi, on 3L ABDOMEN: obese abdomen, BS + 4 quadrants, soft, nondistended, no organomegaly, nontender. MUSCULOSKELETAL: Decreased ROM of right hip-chronic, pain with movement of this joint. INTEGUMENT: lower abdomen and upper thighs with swelling and some redness. He has a large pannus and several skin folds obscuring his groin. Chronic skin changes in the b/l lower ext, dry skin. Hyperkeratosis on toe nails and very long, unkempt. : Extensive open area from incisions along groin, under pannus. Soto catheter in place. NEUROLOGICAL: CN 2-12 intact / speech not dysarthric PSYCHIATRIC: mood and affect appropriate LABORATORY DATA: Reviewed. WB 12.6 hgb 10.7 platelets 302 na 140 K 4 Cr 1.51 (new elevation) IMAGING: CXR 10/28/20: 1. Nasogastric tube below the diaphragm. 2. Limited examination cannot exclude early interstitial edema. Abd XR: Multiple moderately dilated small bowel loops may represent small bowel ileus versus obstruction. Echocardiogram 10/25/20: 1. Moderate concentric left ventricular hypertrophy. Normal left ventricle systolic function. LVEF 60% by visual assessment. Technically difficult for complete endocardial visualization and therefore for complete regional wall motion analysis. No obvious regional wall motion abnormalities were apparent. 2. Severe left atrial dilatation. 3. Indeterminate assessment of LV diastolic function due to absence of mitral annular tissue Doppler. However, differential would be between normal LV diastolic function, which I believe would be doubtful, versus much more likely grade 2 LV diastolic dysfunction (pseudonormal LV filling pattern). 4. Normal right ventricle systolic function. 5. Very small pericardial effusion seen over the anterior right ventricle free wall. No diastolic chamber collapse. 6. Technically difficult echocardiogram. CXR: No acute disease CT abd/pelvis: Toby's gas gangrene involving right scrotum, inguinal region extending towards the perineum/buttock and upwards toward the flank. There is subcutaneous abscess under phlegmon. Imaging is very limited due to extreme body habitus, ring detector artifact and patient contact with the CT scanner shroud limiting [id number]. I see no other significant acute finding. MICROBIOLOGY: Abscess GS 10/25/20: FEW WBCS, FEW GRAM POSITIVE COCCI IN PAIRS, FEW GRAM NEGATIVE RODS. 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 PLAN: Toby's gas gangrene involving right scrotum, inguinal region extending towards the perineum/buttock and upwards toward the flank with a subcutaneous abscess: -POD 1 from third surgery for debridement of necrotized groin/right scrotum and perineum/buttocks -WBC 12.6, afebrile -CT abd/pelvis as above -Abscess GS above, Cx showing FEW GRAM POSITIVE COCCI IN PAIRS, FEW GRAM NEGATIVE RODS. Granulicatela -BCx NG -C/w Zosyn, probiotic, pain control, wound care -General surgery following. Dr. Lares consulted for additional recommendations on right groin wound. 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 -C/w Zosyn, probiotic, pain control, wound care -General surgery following s/p debridement x 3. Small bowel ileus post-operatively and possible gastroparesis -Was restarted on full liquid last evening c/b N/V, made NPO for the rest of the night --> on discussion with Dr. Sesay, will slowly begin clears -Continue IVF -PT/OT -C/w PPI -Zofran PRN and standing reglan Shortness of breath likely multifactorial due to ARJUN, obesity hypoventilation syndrome, HFpEF and potential c/f aspiration given emesis last evening -BNP improved, drops O2 when sleeping. -Using CPAP HS, O2 with napping -Remains 96% on 2-3 L NC -IS ordered Q2h while awake -Echo above -Holding off on diuresing and BB at this time due to fluctuations in blood pr essure during/after surgeries, high NG tube o/p. Caution with fluids -check CXR, f/u VINEET: -continue fluids -hold standing NSAID for now -monitor I/Os -monitor daily BMP Anemia likely multifactorial for iron deficiency and Vitamin B12 -Low iron -Low Vitamin B12 -C/w supplementation DM type II likely uncontrolled 2/2 to infection, surgery -HbA1c 8.3, BS better controlled -C/w AM levemir, ISS, FS ARUJN -nightly CPAP 10 Tobacco Abuse -Smoking cessation education / nicotine patch Class 3 obesity -BMI 81.9, complicates care -Patient was to be referred to bariatric surgery last year ;however, due to COVID this did not happen. GERD -PPI Hx of UE DVT, DVT px -Lovenox BID Resolved issues: Hypophosphatemia Hypotension likely 2/2 to sepsis , dehydration and (post-op) anesthesia DISPOSITION: OR again 10/31/20. PT/OT. General surgery following. VS,Fishbone, I+O VS, Fishbone, I+O Laboratory Tests 11/01/20 05:03 Vital Signs Date Time Temp Pulse Resp B/P (MAP) Pulse Ox O2 Delivery O2 Flow Rate FiO2 11/01/20 06:00 98.1 99 20 169/83 (111) 93 Venturi Mask 3.0 I&O- Last 24 Hours up to 6 AM 11/01/20 05:59 Intake Total 3750 ml Output Total 2620 ml Balance 1130 ml LATOYA CHO MD Nov 01, 2020 08:38
[2020-11-01] MEDS ORDERED: LOPERAMIDE 2 MG CAPLET PO ONE (17:50)
[2020-11-01 20:38] VITALS: BP 106/67
[2020-11-01] MEDS: NYSTATIN 100,000 UNITS/GM TOPICAL PWD 15 GM TOP SCH (20:45)
[2020-11-01] MEDS: NICOTINE 21MG/24HR 1 EA TRANSDERMAL TD SCH (20:45)
[2020-11-02] MEDS: PIPERACILLIN/TAZOBACTAM SOD 4.5 GM in D5W MINI-BAG PLUS 50 ML IV SCH ×4 (03:27→21:17)
[2020-11-02] MEDS: LR 1,000 ML IV SCH ×3 (03:28→17:45)
[2020-11-02] MEDS: METOCLOPRAMIDE INJ 10MG/2ML VIAL (J2765 PER 1) IV SCH ×3 (04:56→17:45)
[2020-11-02 05:10] VITALS: BP 144/80
[2020-11-02] MEDS: HumaLOG INSULIN (NovoLOG) PER UNIT SC SCH ×3 (06:00→17:57)
[2020-11-02 06:40] LABS: HEMATOCRIT 36.8 % (42.0-52.0); HEMOGLOBIN 10.8 g/dl (13.5-17.5); MEAN CORPUSCULAR HEMOGLOBIN 26.1 pg (27.0-33.0); MEAN CORPUSCULAR HGB CONC 29.3 g/dl (32.0-36.5); MEAN CORPUSCULAR VOLUME 88.9 fl (80.0-96.0); PLATELET COUNT, AUTOMATED 282 10^3/uL (150-450); RED BLOOD COUNT 4.14 10^6/uL (4.30-6.10); WHITE BLOOD COUNT 11.4 10^3/uL (4.0-10.0)
[2020-11-02 06:53] LABS: C REACTIVE PROTEIN QUANTITATIV 9.93 MG/DL (0.00-0.30); CALCIUM LEVEL 7.6 MG/DL (8.5-10.1); CREATININE FOR GFR 1.57 MG/DL (0.70-1.30); GLOMERULAR FILTRATION RATE 50.4 (>60); POTASSIUM SERUM 3.7 MEQ/L (3.5-5.1)
[2020-11-02] MEDS: LEVEMIR (INSULIN DETEMIR) 1 UNITS/0.01ML SC SCH (08:42)
[2020-11-02] MEDS: LACTOBACILLUS ACIDOPHILUS CAP (BACID) PO SCH ×2 (08:43→17:45)
[2020-11-02] MEDS: CYANOCOBALAMIN 500 MCG TAB PO SCH (08:43)
[2020-11-02] MEDS: FERROUS SULFATE 325MG TAB PO SCH ×2 (08:44→21:16)
[2020-11-02] MEDS: PANTOPRAZOLE 40MG VIAL (C9113 PER 1) IV SCH (08:44)
[2020-11-02] MEDS: NYSTATIN 100,000 UNITS/GM TOPICAL PWD 15 GM TOP SCH ×2 (09:00→21:00)
[2020-11-02] MEDS ORDERED: LOPERAMIDE 2 MG CAPLET PO ONE (09:00)
[2020-11-02] MEDS: VANICREAM MOISTURIZING SKIN CREAM 113GM TUBE TOP SCH ×2 (09:35→21:17)
[2020-11-02] MEDS: LACTIC ACID 12% LOTION 225 GM BTL TOP SCH (09:35)
--- NOTE | 2020-11-02 12:07 | IPNPDOC ---
Text Note Date of Service The patient was seen on 11/02/20. 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 He also developed either postoperative ileus or has been having some gastroparesis for which she had a nasogastric tube placed earlier this week and was removed last . Since the last time he took him back , he wound VAC has been placed. Yesterday he ran problems with a wound VAC not achieving enough suction to a desired 1.5 mmHg and was only sucking 27 5 mmHg so placed a second tubing towards the medial side stridor get a more adequate suction and so for this has been holding up. He reports no nausea or vomiting is tolerating clears, is having some mild diarrhea. His wound VAC remains in place on adequate suction of 1 25 mmHg. Erythema over the right side has mostly resolved. He has some long-standing skin irritation/erythema on the left groin and abdomen place nystatin powder as well as some absorptive dressing over that area to prevent similar event to the right groin. He still has a Soto catheter which will be somewhat of a long-term issue given the wound as well, his body habitus, the retraction of the penile shaft underneath the skin folds due to his morbid obesity. Plan: We'll change wound VAC either today or tomorrow or Wednesday at the bedside and see how he tolerates this. On we'll plan to change the wound VAC with Dr. lemus at the bedside gauge on how he is progressing. VS,Selvinbone, I+O VS, Fishbone, I+O Laboratory Tests 11/02/20 06:15 Vital Signs Date Time Temp Pulse Resp B/P (MAP) Pulse Ox O2 Delivery O2 Flow Rate FiO2 11/02/20 05:10 98.2 94 20 144/80 (101) 94 Room Air 11/01/20 06:00 3.0 I&O- Last 24 Hours up to 6 AM 11/02/20 06:00 Intake Total 3060 ml Output Total 2204 ml Balance 856 ml MONICA SCOTT MD Nov 02, 2020 12:07
--- NOTE | 2020-11-02 12:26 | IPNPDOC ---
Text Note Date of Service The patient was seen on 11/02/20. 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 -Tolerating clear liquid diet -Had diarrhea, stopped colace -Denies chest pain, shortness of breath OBJECTIVE: VS: Please see below GENERAL APPEARANCE: NAD, resting in bed HEENT: EOMI, PERRLA, NG tube in place NECK: thick CARDIOVASCULAR: sinus rhythm, no M/R/G LUNGS: CTAB on RA, no wheezing, some rhonchi, on 3L ABDOMEN: obese abdomen, BS + 4 quadrants, soft, nondistended, no organomegaly, nontender. MUSCULOSKELETAL: Decreased ROM of right hip-chronic, pain with movement of this joint. INTEGUMENT: lower abdomen and upper thighs with swelling and some redness. He has a large pannus and several skin folds obscuring his groin. Chronic skin changes in the b/l lower ext, dry skin. Hyperkeratosis on toe nails and very long, unkempt. : Extensive open area from incisions along groin, under pannus. Soto catheter in place. NEUROLOGICAL: CN 2-12 intact / speech not dysarthric PSYCHIATRIC: mood and affect appropriate LABORATORY DATA: Reviewed. Cr 1.57 IMAGING: CXR 10/28/20: 1. Nasogastric tube below the diaphragm. 2. Limited examination cannot exclude early interstitial edema. Abd XR: Multiple moderately dilated small bowel loops may represent small bowel ileus versus obstruction. Echocardiogram 10/25/20: 1. Moderate concentric left ventricular hypertrophy. Normal left ventricle systolic function. LVEF 60% by visual assessment. Technically difficult for complete endocardial visualization and therefore for complete regional wall mo tion analysis. No obvious regional wall motion abnormalities were apparent. 2. Severe left atrial dilatation. 3. Indeterminate assessment of LV diastolic function due to absence of mitral annular tissue Doppler. However, differential would be between normal LV diastolic function, which I believe would be doubtful, versus much more likely grade 2 LV diastolic dysfunction (pseudonormal LV filling pattern). 4. Normal right ventricle systolic function. 5. Very small pericardial effusion seen over the anterior right ventricle free wall. No diastolic chamber collapse. 6. Technically difficult echocardiogram. CXR: No acute disease CT abd/pelvis: Toby's gas gangrene involving right scrotum, inguinal region extending towards the perineum/buttock and upwards toward the flank. There is subcutaneous abscess under phlegmon. Imaging is very limited due to extreme body habitus, ring detector artifact and patient contact with the CT scanner shroud limiting [id number]. I see no other significant acute finding. MICROBIOLOGY: Abscess GS 10/25/20: FEW WBCS, FEW GRAM POSITIVE COCCI IN PAIRS, FEW GRAM NEGATIVE RODS. 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 Dr. Lares consulted for additional recommendations on right groin wound. 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 -C/w Zosyn, probiotic, pain control, wound care -General surgery following s/p debridement x 3. Small bowel ileus post-operatively and possible gastroparesis -Tolerating clears will advance to full liquid diet -Continue IVF -PT/OT -C/w PPI -Zofran PRN and standing reglan Shortness of breath likely multifactorial due to ARJUN, obesity hypoventilation syndrome, HFpEF and potential c/f aspiration given emesis last evening -BNP improved, drops O2 when sleeping. -Using CPAP HS, O2 with napping -Remains 96% on 2-3 L NC -IS ordered Q2h while awake -Echo above -Holding off on diuresing and BB at this time due to fluctuations in blood pressure during/after surgeries, high NG tube o/p. Caution with fluids VINEET: -continue fluids, increased to 175cc/hr given high drain output -hold standing NSAID for now -monitor I/Os -monitor daily BMP Anemia likely multifactorial for iron deficiency and Vitamin B12 -Low iron -Low Vitamin B12 -C/w supplementation DM type II likely uncontrolled 2/2 to infection, surgery -HbA1c 8.3, BS better controlled -C/w AM levemir, ISS, FS ARJUN -nightly CPAP 10 Tobacco Abuse -Smoking cessation education / nicotine patch Class 3 obesity -BMI 81.9, complicates care -Patient was to be referred to bariatric surgery last year ;however, due to COVID this did not happen. GERD -PPI Hx of UE DVT, DVT px -Lovenox BID Resolved issues: Hypophosphatemia Hypotension likely 2/2 to sepsis , dehydration and (post-op) anesthesia DISPOSITION: OR again 10/31/20. PT/OT. General surgery following. VS,Fishbone, I+O VS, Fishbone, I+O Laboratory Tests 11/02/20 06:15 Vital Signs Date Time Temp Pulse Resp B/P (MAP) Pulse Ox O2 Delivery O2 Flow Rate FiO2 11/02/20 05:10 98.2 94 20 144/80 (101) 94 Room Air 11/01/20 06:00 3.0 I&O- Last 24 Hours up to 6 AM 11/02/20 06:00 Intake Total 3060 ml Output Total 2204 ml Balance 856 ml LATOYA CHO MD Nov 02, 2020 08:34
[2020-11-02 14:00] VITALS: BP 143/84
[2020-11-02] MEDS: NICOTINE 21MG/24HR 1 EA TRANSDERMAL TD SCH (21:00)
[2020-11-02 22:00] VITALS: BP 132/71
[2020-11-03] MEDS: LR 1,000 ML IV SCH ×5 (00:27→20:39)
[2020-11-03] MEDS: METOCLOPRAMIDE INJ 10MG/2ML VIAL (J2765 PER 1) IV SCH ×5 (00:36→22:16)
[2020-11-03] MEDS: PIPERACILLIN/TAZOBACTAM SOD 4.5 GM in D5W MINI-BAG PLUS 50 ML IV SCH ×4 (03:11→20:39)
[2020-11-03 06:00] VITALS: BP 187/86
[2020-11-03] MEDS: HumaLOG INSULIN (NovoLOG) PER UNIT SC SCH ×5 (06:00→22:00)
[2020-11-03 06:27] LABS: HEMATOCRIT 33.7 % (42.0-52.0); HEMOGLOBIN 9.9 g/dl (13.5-17.5); MEAN CORPUSCULAR HEMOGLOBIN 25.4 pg (27.0-33.0); MEAN CORPUSCULAR HGB CONC 29.4 g/dl (32.0-36.5); MEAN CORPUSCULAR VOLUME 86.4 fl (80.0-96.0); PLATELET COUNT, AUTOMATED 242 10^3/uL (150-450); WHITE BLOOD COUNT 10.7 10^3/uL (4.0-10.0)
[2020-11-03 06:47] LABS: C REACTIVE PROTEIN QUANTITATIV 6.96 MG/DL (0.00-0.30); CALCIUM LEVEL 7.6 MG/DL (8.5-10.1); CREATININE FOR GFR 1.38 MG/DL (0.70-1.30); GLOMERULAR FILTRATION RATE 58.5 (>60); POTASSIUM SERUM 4.1 MEQ/L (3.5-5.1)
[2020-11-03] MEDS: PANTOPRAZOLE 40MG VIAL (C9113 PER 1) IV SCH (08:38)
[2020-11-03] MEDS: CYANOCOBALAMIN 500 MCG TAB PO SCH (08:39)
[2020-11-03] MEDS: LACTIC ACID 12% LOTION 225 GM BTL TOP SCH (08:39)
[2020-11-03] MEDS: LACTOBACILLUS ACIDOPHILUS CAP (BACID) PO SCH ×2 (08:39→17:30)
[2020-11-03] MEDS: FERROUS SULFATE 325MG TAB PO SCH ×2 (08:39→20:39)
[2020-11-03] MEDS: VANICREAM MOISTURIZING SKIN CREAM 113GM TUBE TOP SCH ×2 (08:40→20:39)
[2020-11-03] MEDS: LEVEMIR (INSULIN DETEMIR) 1 UNITS/0.01ML SC SCH (09:18)
--- NOTE | 2020-11-03 10:41 | IPNPDOC ---
Text Note Date of Service The patient was seen on 11/03/20. 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 -Tolerating full liquid diet -Had 8 episodes of diarrhea yesterday. None recorded thus far today -Denies chest pain, shortness of breath, now on room air OBJECTIVE: VS: Please see below GENERAL APPEARANCE: NAD, resting in bed HEENT: EOMI, PERRLA, NG tube in place NECK: thick CARDIOVASCULAR: sinus rhythm, no M/R/G LUNGS: CTAB on RA, no wheezing, some rhonchi, on 3L ABDOMEN: obese abdomen, BS + 4 quadrants, soft, nondistended, no organomegaly, nontender. MUSCULOSKELETAL: Decreased ROM of right hip-chronic, pain with movement of this joint. INTEGUMENT: lower abdomen and upper thighs with swelling and some redness. He has a large pannus and several skin folds obscuring his groin. Chronic skin changes in the b/l lower ext, dry skin. Hyperkeratosis on toe nails and very long, unkempt. : Extensive open area from incisions along groin, under pannus. Soto catheter in place. NEUROLOGICAL: CN 2-12 intact / speech not dysarthric PSYCHIATRIC: mood and affect appropriate LABORATORY DATA: Reviewed. Cr 1.38 IMAGING: CXR 10/28/20: 1. Nasogastric tube below the diaphragm. 2. Limited examination cannot exclude early interstitial edema. Abd XR: Multiple moderately dilated small bowel loops may represent small bowel ileus versus obstruction. Echocardiogram 10/25/20: 1. Moderate concentric left ventricular hypertrophy. Normal left ventricle s ystolic function. LVEF 60% by visual assessment. Technically difficult for complete endocardial visualization and therefore for complete regional wall motion analysis. No obvious regional wall motion abnormalities were apparent. 2. Severe left atrial dilatation. 3. Indeterminate assessment of LV diastolic function due to absence of mitral annular tissue Doppler. However, differential would be between normal LV diastolic function, which I believe would be doubtful, versus much more likely grade 2 LV diastolic dysfunction (pseudonormal LV filling pattern). 4. Normal right ventricle systolic function. 5. Very small pericardial effusion seen over the anterior right ventricle free wall. No diastolic chamber collapse. 6. Technically difficult echocardiogram. CXR: No acute disease CT abd/pelvis: Toby's gas gangrene involving right scrotum, inguinal region extending towards the perineum/buttock and upwards toward the flank. There is subcutaneous abscess under phlegmon. Imaging is very limited due to extreme body habitus, ring detector artifact and patient contact with the CT scanner shroud limiting [id number]. I see no other significant acute finding. MICROBIOLOGY: Abscess GS 10/25/20: FEW WBCS, FEW GRAM POSITIVE COCCI IN PAIRS, FEW GRAM NEGATIVE RODS. 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 Dr. Lares consulted for additional recommendations on right groin wound. 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 -C/w Zosyn, probiotic, pain control, wound care -General surgery following s/p debridement x 3. Small bowel ileus post-operatively and possible gastroparesis: resolved -Tolerating full liquids will advance to consistent carb today -Continue IVF as output is high -PT/OT -C/w PPI -Zofran PRN and standing reglan Shortness of breath likely multifactorial due to ARJUN, obesity hypoventilation syndrome, HFpEF and potential c/f aspiration given emesis last evening -BNP improved, drops O2 when sleeping. -Using CPAP HS, O2 with napping -Now on room air -IS ordered Q2h while awake -Echo above -Holding off on diuresing and BB at this time due to fluctuations in blood pressure during/after surgeries, high NG tube o/p. Caution with fluids VINEET: resolving -continue fluids, increased to 175cc/hr given high drain output -hold standing NSAID for now -monitor I/Os -monitor daily BMP Anemia likely multifactorial for iron deficiency and Vitamin B12 -Low iron -Low Vitamin B12 -C/w supplementation DM type II likely uncontrolled 2/2 to infection, surgery -HbA1c 8.3, BS better controlled -C/w AM levemir, ISS, FS ARJUN -nightly CPAP 10 Tobacco Abuse -Smoking cessation education / nicotine patch Class 3 obesity -BMI 81.9, complicates care -Patient was to be referred to bariatric surgery last year ;however, due to COVID this did not happen. GERD -PPI Hx of UE DVT, DVT px -Lovenox BID Resolved issues: Hypophosphatemia Hypotension likely 2/2 to sepsis , dehydration and (post-op) anesthesia DISPOSITION: Inpatient with plan for vac replacement on 11/04. PT/OT. General surgery following. VS,Fishbone, I+O VS, Fishbone, I+O Laboratory Tests 11/03/20 06:16 Vital Signs Date Time Temp Pulse Resp B/P (MAP) Pulse Ox O2 Delivery O2 Flow Rate FiO2 11/03/20 06:00 98.0 91 22 187/86 (119) 92 Room Air 11/03/20 00:15 10.0 50 I&O- Last 24 Hours up to 6 AM 11/03/20 06:00 Intake Total 1560 ml Output Total 2050 ml Balance -490 ml LATOYA CHO MD Nov 03, 2020 08:19
[2020-11-03] MEDS: LOPERAMIDE 2 MG CAPLET PO PRN (11:46)
[2020-11-03] MEDS: NYSTATIN 100,000 UNITS/GM TOPICAL PWD 15 GM TOP SCH ×2 (12:44→20:40)
[2020-11-03 14:00] VITALS: BP 143/75
[2020-11-03] MEDS: NICOTINE 21MG/24HR 1 EA TRANSDERMAL TD SCH (20:39)
[2020-11-03 22:00] VITALS: BP 152/84
[2020-11-04] MEDS: LOPERAMIDE 2 MG CAPLET PO PRN (00:15)
[2020-11-04] MEDS: PIPERACILLIN/TAZOBACTAM SOD 4.5 GM in D5W MINI-BAG PLUS 50 ML IV SCH ×4 (02:43→21:27)
[2020-11-04] MEDS: LR 1,000 ML IV SCH ×2 (02:43→16:07)
[2020-11-04] MEDS: METOCLOPRAMIDE INJ 10MG/2ML VIAL (J2765 PER 1) IV SCH ×4 (03:57→22:17)
[2020-11-04 06:00] VITALS: BP 112/70
[2020-11-04 06:14] LABS: HEMATOCRIT 36.2 % (42.0-52.0); HEMOGLOBIN 10.6 g/dl (13.5-17.5); MEAN CORPUSCULAR HEMOGLOBIN 26.2 pg (27.0-33.0); MEAN CORPUSCULAR HGB CONC 29.3 g/dl (32.0-36.5); MEAN CORPUSCULAR VOLUME 89.6 fl (80.0-96.0); PLATELET COUNT, AUTOMATED 239 10^3/uL (150-450); RED BLOOD COUNT 4.04 10^6/uL (4.30-6.10); WHITE BLOOD COUNT 10.9 10^3/uL (4.0-10.0)
[2020-11-04 06:29] LABS: C REACTIVE PROTEIN QUANTITATIV 5.85 MG/DL (0.00-0.30); CALCIUM LEVEL 7.5 MG/DL (8.5-10.1); CREATININE FOR GFR 1.36 MG/DL (0.70-1.30); GLOMERULAR FILTRATION RATE 59.5 (>60); POTASSIUM SERUM 3.6 MEQ/L (3.5-5.1)
[2020-11-04] MEDS: HumaLOG INSULIN (NovoLOG) PER UNIT SC SCH ×4 (07:30→21:00)
[2020-11-04] MEDS: LACTOBACILLUS ACIDOPHILUS CAP (BACID) PO SCH ×2 (09:20→18:34)
[2020-11-04] MEDS: FERROUS SULFATE 325MG TAB PO SCH ×2 (09:20→21:27)
[2020-11-04] MEDS: PANTOPRAZOLE 40MG VIAL (C9113 PER 1) IV SCH (09:20)
[2020-11-04] MEDS: CYANOCOBALAMIN 500 MCG TAB PO SCH (09:20)
[2020-11-04] MEDS: LACTIC ACID 12% LOTION 225 GM BTL TOP SCH (09:21)
[2020-11-04] MEDS: LEVEMIR (INSULIN DETEMIR) 1 UNITS/0.01ML SC SCH (09:21)
[2020-11-04] MEDS: NYSTATIN 100,000 UNITS/GM TOPICAL PWD 15 GM TOP SCH ×2 (09:22→21:28)
[2020-11-04] MEDS: VANICREAM MOISTURIZING SKIN CREAM 113GM TUBE TOP SCH ×2 (09:22→21:28)
--- NOTE | 2020-11-04 12:04 | IPNPDOC ---
Text Note Date of Service The patient was seen on 11/04/20. NOTE SUBJECTIVE: -POD 4 from third surgery for debridement of necrotized groin/right scrotum and perineum/buttocks. -Tolerating regular consistent carb diet -Denies chest pain, shortness of breath, now on room air -Diarrhea persists --> was started on PRN loperamide OBJECTIVE: VS: Please see below GENERAL APPEARANCE: NAD, resting in bed HEENT: EOMI, PERRLA, NG tube in place NECK: thick CARDIOVASCULAR: sinus rhythm, no M/R/G LUNGS: CTAB on RA, no wheezing, some rhonchi, on 3L ABDOMEN: obese abdomen, BS + 4 quadrants, soft, nondistended, no organomegaly, nontender. MUSCULOSKELETAL: Decreased ROM of right hip-chronic, pain with movement of this joint. INTEGUMENT: lower abdomen and upper thighs with swelling and some redness. He has a large pannus and several skin folds obscuring his groin. Chronic skin changes in the b/l lower ext, dry skin. Hyperkeratosis on toe nails and very long, unkempt. : Extensive open area from incisions along groin, under pannus. Soto catheter in place. NEUROLOGICAL: CN 2-12 intact / speech not dysarthric PSYCHIATRIC: mood and affect appropriate LABORATORY DATA: Reviewed. Cr 1.36 IMAGING: CXR 10/28/20: 1. Nasogastric tube below the diaphragm. 2. Limited examination cannot exclude early interstitial edema. Abd XR: Multiple moderately dilated small bowel loops may represent small bowel ileus versus obstruction. Echocardiogram 10/25/20: 1. Moderate concentric left ventricular hypertrophy. Normal left ventricle syst olic function. LVEF 60% by visual assessment. Technically difficult for complete endocardial visualization and therefore for complete regional wall motion analysis. No obvious regional wall motion abnormalities were apparent. 2. Severe left atrial dilatation. 3. Indeterminate assessment of LV diastolic function due to absence of mitral annular tissue Doppler. However, differential would be between normal LV diastolic function, which I believe would be doubtful, versus much more likely grade 2 LV diastolic dysfunction (pseudonormal LV filling pattern). 4. Normal right ventricle systolic function. 5. Very small pericardial effusion seen over the anterior right ventricle free wall. No diastolic chamber collapse. 6. Technically difficult echocardiogram. CXR: No acute disease CT abd/pelvis: Toby's gas gangrene involving right scrotum, inguinal region extending towards the perineum/buttock and upwards toward the flank. There is subcutaneous abscess under phlegmon. Imaging is very limited due to extreme body habitus, ring detector artifact and patient contact with the CT scanner shroud limiting [id number]. I see no other significant acute finding. MICROBIOLOGY: Abscess GS 10/25/20: FEW WBCS, FEW GRAM POSITIVE COCCI IN PAIRS, FEW GRAM NEGATIVE RODS. Granulicatela Abscess anerobic Cx 10/25/20: pending Respiratory panel neg Blood cx NG x 2 sets UA +,UCx NG PATHOLOGY: 10/24/20: Fragments of soft tissue and skin with fat necrosis, acute inflammation and t issue necrosis ASSESSMENT: 50 yr old w a hx of UE DVT, ARJUN, Obesity and GERD who presented w c/o severe groin pain for several weeks and admitted for sepsis 2/2 Toby's gas gangrene involving right scrotum, inguinal region extending towards the perineum/buttock and upwards toward the flank with a subcutaneous abscess. PLAN: Toby's gas gangrene involving right scrotum, inguinal region extending towards the perineum/buttock and upwards toward the flank with a subcutaneous abscess: -POD 4 from third surgery for debridement of necrotized groin/right scrotum and perineum/buttocks -afebrile -CT abd/pelvis as above -Abscess GS above, Cx showing Granulicatela, now also showing coag neg staph and some yeast -BCx NG -C/w Zosyn, probiotic, pain control, wound care -General surgery following, with vac in place. Dr. Lares consulted for additional recommendations on right groin wound. 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 -C/w Zosyn, probiotic, pain control, wound care -General surgery following s/p debridement x 3. Small bowel ileus post-operatively and possible gastroparesis: resolved -Tolerating consistent carb diet -Continue IVF as output is high -PT/OT -C/w PPI -Zofran PRN and standing reglan Shortness of breath likely multifactorial due to ARJUN, obesity hypoventilation syndrome, HFpEF and potential c/f aspiration given emesis last evening -BNP improved, drops O2 when sleeping. -Using CPAP HS, O2 with napping -Now on room air -IS ordered Q2h while awake -Echo above -Holding off on diuresing and BB at this time due to fluctuations in blood pressure during/after surgeries, high NG tube o/p. Caution with fluids VINEET: resolving -continue fluids, increased to 175cc/hr given high drain output -hold standing NSAID for now -monitor I/Os -monitor daily BMP Anemia likely multifactorial for iron deficiency and Vitamin B12 -Low iron -Low Vitamin B12 -C/w supplementation DM type II likely uncontrolled 2/2 to infection, surgery -HbA1c 8.3, BS better controlled -C/w AM levemir, ISS, FS AC/HS -consistent carb diet ARJUN -nightly CPAP 10 Tobacco Abuse -Smoking cessation education / nicotine patch Class 3 obesity -BMI 81.9, complicates care -Patient was to be referred to bariatric surgery last year ;however, due to COVID this did not happen. GERD -PPI Hx of UE DVT, DVT px -Lovenox BID Resolved issues: Hypophosphatemia Hypotension likely 2/2 to sepsis , dehydration and (post-op) anesthesia DISPOSITION: Inpatient with plan for vac replacement on 11/04. PT/OT. General surgery following. VS,Fishbone, I+O VS, Fishbone, I+O Laboratory Tests 11/04/20 05:47 Vital Signs Date Time Temp Pulse Resp B/P (MAP) Pulse Ox O2 Delivery O2 Flow Rate FiO2 11/04/20 06:00 97.9 100 19 112/70 (84) 95 Room Air 11/03/20 00:15 10.0 50 I&O- Last 24 Hours up to 6 AM 11/04/20 06:00 Intake Total 5295 ml Output Total 1875 ml Balance 3420 ml LATOYA CHO MD Nov 04, 2020 09:49
--- NOTE | 2020-11-04 13:21 | IPNPDOC ---
Text Note Date of Service The patient was seen on 11/04/20. NOTE I changed his wound VAC today. According to nursing were having some problems with the wound VAC device maintaining suction yesterday. The wound was soaked with/for 30 minutes at least. There is some good granulation tissue at the wound bed and less erythema of the surrounding skin including that of the folds in between his large pannus and the left groin crease. There is some increasing erythema/induration on the lateral hip area on the right side where I closed the incision and on probing the wound there is a small amount of fluid collection underneath that I could drain out. Thus I removed the sutures to open this area up. There is a good amount of moisture within this area. The overlying skin fold has some irritated skin which is mildly moist due to the plastic drapes used to seal the wound VAC for home. I placed to the wound VAC again. The wound measures 50 cm x 27 cm with about 4 cm depth. The wound accommodates one large black foam, half of a large black f oam and about a third of the spiral foam laterally. We were able to maintain an adequate seals though there is some notable leak that we could not fully sealed medially. Next wound VAC changes with Natali Denis, I+O Natali JETT I+O Laboratory Tests 11/04/20 05:47 Vital Signs Date Time Temp Pulse Resp B/P (MAP) Pulse Ox O2 Delivery O2 Flow Rate FiO2 11/04/20 06:00 97.9 100 19 112/70 (84) 95 Room Air 11/03/20 00:15 10.0 50 I&O- Last 24 Hours up to 6 AM 11/04/20 05:59 Intake Total 5295 ml Output Total 2075 ml Balance 3220 ml MONICA SCOTT MD Nov 04, 2020 13:21
[2020-11-04 14:00] VITALS: BP 134/89
[2020-11-04] MEDS: NICOTINE 21MG/24HR 1 EA TRANSDERMAL TD SCH (21:00)
[2020-11-04 22:00] VITALS: BP 134/80
[2020-11-05] MEDS: LR 1,000 ML IV SCH ×2 (00:30→06:41)
[2020-11-05] MEDS: PIPERACILLIN/TAZOBACTAM SOD 4.5 GM in D5W MINI-BAG PLUS 50 ML IV SCH ×4 (03:13→21:20)
[2020-11-05] MEDS: METOCLOPRAMIDE INJ 10MG/2ML VIAL (J2765 PER 1) IV SCH ×4 (05:00→22:09)
[2020-11-05 05:40] LABS: HEMATOCRIT 34.2 % (42.0-52.0); HEMOGLOBIN 9.9 g/dl (13.5-17.5); MEAN CORPUSCULAR HEMOGLOBIN 25.7 pg (27.0-33.0); MEAN CORPUSCULAR HGB CONC 28.9 g/dl (32.0-36.5); MEAN CORPUSCULAR VOLUME 88.8 fl (80.0-96.0); PLATELET COUNT, AUTOMATED 241 10^3/uL (150-450); RED BLOOD COUNT 3.85 10^6/uL (4.30-6.10); WHITE BLOOD COUNT 10.7 10^3/uL (4.0-10.0)
[2020-11-05 06:01] LABS: BLOOD UREA NITROGEN 8 MG/DL (7-18); C REACTIVE PROTEIN QUANTITATIV 5.62 MG/DL (0.00-0.30); CALCIUM LEVEL 7.3 MG/DL (8.5-10.1); CARBON DIOXIDE LEVEL 29 MEQ/L (21-32); CHLORIDE LEVEL 109 MEQ/L (98-107); CREATININE FOR GFR 1.26 MG/DL (0.70-1.30); GLOMERULAR FILTRATION RATE > 60.0 (>60); GLUCOSE, FASTING 107 MG/DL (70-100); POTASSIUM SERUM 3.5 MEQ/L (3.5-5.1); SODIUM LEVEL 143 MEQ/L (136-145)
[2020-11-05 06:02] VITALS: BP 166/72
--- NOTE | 2020-11-05 08:47 | IPNPDOC ---
Text Note Date of Service The patient was seen on 11/05/20. NOTE Gen. surgery. Dr. Scott The patient is a 50-year-old male status post emergent debridement of a necrotizing right groin soft tissue infection 10/23/[address] Scott, sta tus post incision and drainage of necrotizing fasciitis and Toby's gangrene 10/25/[address] Scott. Status post wound VAC change yesterday at the bedside as per Dr. Scott. There has been some difficulty maintaining suction, there is no leak indicated this morning but is requiring some reinforcement around the right lateral hip area. Patient laying flat in bed, comfortable. He is awake, alert, and oriented. Abdomen obese, soft Right groin with wound VAC intact, no air leak indicated on vac currently. WBC 10.7, hemoglobin 10.9, platelets 241 A/P Necrotizing fasciitis and Toby's gangrene status post debridement 3, wound VAC changed 11/04/[address] Scott Continue to reinforce wound VAC to maintain seal. Plan is for wound VAC change with Dr. Lares. IV John. Continue to monitor. BMI 81.3. Complicates care. VS,Fishbone, I+O VS, Fishbone, I+O Laboratory Tests 11/05/20 05:27 Vital Signs Date Time Temp Pulse Resp B/P (MAP) Pulse Ox O2 Delivery O2 Flow Rate FiO2 11/05/20 06:02 97.0 82 17 166/72 (103) 95 Room Air 11/03/20 00:15 10.0 50 I&O- Last 24 Hours up to 6 AM 11/05/20 05:59 Intake Total 1530 ml Output Total 2753 ml Balance -1223 ml Preethi Mortensen Nov 05, 2020 08:47 MONICA SCOTT MD Nov 25, 2020 00:12
[2020-11-05 09:00] VITALS: BP 162/74
[2020-11-05] MEDS: LACTOBACILLUS ACIDOPHILUS CAP (BACID) PO SCH ×2 (10:15→18:41)
[2020-11-05] MEDS: PANTOPRAZOLE 40MG VIAL (C9113 PER 1) IV SCH (10:16)
[2020-11-05] MEDS: FERROUS SULFATE 325MG TAB PO SCH ×2 (10:16→21:20)
[2020-11-05] MEDS: CYANOCOBALAMIN 500 MCG TAB PO SCH (10:16)
[2020-11-05] MEDS: LEVEMIR (INSULIN DETEMIR) 1 UNITS/0.01ML SC SCH (10:18)
[2020-11-05] MEDS: NYSTATIN 100,000 UNITS/GM TOPICAL PWD 15 GM TOP SCH ×2 (10:19→21:21)
[2020-11-05] MEDS: LACTIC ACID 12% LOTION 225 GM BTL TOP SCH (10:19)
[2020-11-05] MEDS: VANICREAM MOISTURIZING SKIN CREAM 113GM TUBE TOP SCH ×2 (10:20→21:21)
[2020-11-05] MEDS: HumaLOG INSULIN (NovoLOG) PER UNIT SC SCH ×4 (10:21→20:51)
--- NOTE | 2020-11-05 12:14 | IPNPDOC ---
Text Note Date of Service The patient was seen on 11/05/20. NOTE SUBJECTIVE: -POD 5 from third surgery for debridement of necrotized groin/right scrotum and perineum/buttocks. -Tolerating regular consistent carb diet -Denies chest pain, shortness of breath, now on room air -Diarrhea much improved OBJECTIVE: VS: Please see below GENERAL APPEARANCE: NAD, resting in bed HEENT: EOMI, PERRLA, NG tube in place NECK: thick CARDIOVASCULAR: sinus rhythm, no M/R/G LUNGS: CTAB on RA, no wheezing, some rhonchi, on 3L ABDOMEN: obese abdomen, BS + 4 quadrants, soft, nondistended, no organomegaly, nontender. MUSCULOSKELETAL: Decreased ROM of right hip-chronic, pain with movement of this joint. INTEGUMENT: lower abdomen and upper thighs with swelling and some redness. He has a large pannus and several skin folds obscuring his groin. Chronic skin changes in the b/l lower ext, dry skin. Hyperkeratosis of toe nails. : Extensive open area from incisions along groin, under pannus. Soto catheter in place. NEUROLOGICAL: CN 2-12 intact / speech not dysarthric PSYCHIATRIC: mood and affect appropriate LABORATORY DATA: Reviewed. Cr 09.24 IMAGING: CXR 10/28/20: 1. Nasogastric tube below the diaphragm. 2. Limited examination cannot exclude early interstitial edema. Abd XR: Multiple moderately dilated small bowel loops may represent small bowel ileus versus obstruction. Echocardiogram 10/25/20: 1. Moderate concentric left ventricular hypertrophy. Normal left ventricle systolic function. LVEF 60% by visual assessment. Technically difficult for complete endocardial visualization and therefore for complete regional wall mo tion analysis. No obvious regional wall motion abnormalities were apparent. 2. Severe left atrial dilatation. 3. Indeterminate assessment of LV diastolic function due to absence of mitral annular tissue Doppler. However, differential would be between normal LV diastolic function, which I believe would be doubtful, versus much more likely grade 2 LV diastolic dysfunction (pseudonormal LV filling pattern). 4. Normal right ventricle systolic function. 5. Very small pericardial effusion seen over the anterior right ventricle free wall. No diastolic chamber collapse. 6. Technically difficult echocardiogram. CXR: No acute disease CT abd/pelvis: Toby's gas gangrene involving right scrotum, inguinal region extending towards the perineum/buttock and upwards toward the flank. There is subcutaneous abscess under phlegmon. Imaging is very limited due to extreme body habitus, ring detector artifact and patient contact with the CT scanner shroud limiting [id number]. I see no other significant acute finding. MICROBIOLOGY: Abscess GS 10/25/20: FEW WBCS, FEW GRAM POSITIVE COCCI IN PAIRS, FEW GRAM NEGATIVE RODS. 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 PLAN: Toby's gas gangrene involving right scrotum, inguinal region extending towards the perineum/buttock and upwards toward the flank with a subcutaneous abscess: -POD 5 from third surgery for debridement of necrotized groin/right scrotum and perineum/buttocks -afebrile -CT abd/pelvis as above -Abscess GS above, Cx showing Granulicatela, now also showing coag neg staph and some yeast -BCx NG -C/w Zosyn, probiotic, pain control, wound care -General surgery following, with vac in place. Dr. Lares consulted for additional recommendations on right groin wound. 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 -C/w Zosyn, probiotic, pain control, wound care -General surgery following s/p debridement x 3. Small bowel ileus post-operatively and possible gastroparesis: resolved -Tolerating consistent carb diet -Continue IVF as output is high -PT/OT -C/w PPI -Zofran PRN and standing reglan Shortness of breath likely multifactorial due to ARJUN, obesity hypoventilation syndrome, HFpEF -BNP improved, drops O2 when sleeping. -Using CPAP HS, O2 with napping -Now on room air -IS ordered Q2h while awake -Echo above -Holding off on diuresing and BB at this time due to fluctuations in blood pressure during/after surgeries, high NG tube o/p. Caution with fluids VINEET: resolving -Discontinue fluids -Discontinued standing NSAID -monitor I/Os -monitor daily BMP Anemia likely multifactorial for iron deficiency and Vitamin B12 -Low iron -Low Vitamin B12 -C/w supplementation DM type II likely uncontrolled 2/2 to infection, surgery -HbA1c 8.3, BS better controlled -C/w AM levemir, ISS, FS AC/HS -consistent carb diet ARJUN -nightly CPAP 10 Tobacco Abuse -Smoking cessation education / nicotine patch Class 3 obesity -BMI 81.9, complicates care -Patient was to be referred to bariatric surgery last year ;however, due to COVID this did not happen. GERD -PPI Hx of UE DVT, DVT px -Lovenox BID Resolved issues: Hypophosphatemia Hypotension likely 2/2 to sepsis , dehydration and (post-op) anesthesia DISPOSITION: Inpatient with plan for vac replacement on 11/04. PT/OT. General surgery following. VS,Fishbone, I+O VS, Fishbone, I+O Laboratory Tests 11/05/20 05:27 Vital Signs Date Time Temp Pulse Resp B/P (MAP) Pulse Ox O2 Delivery O2 Flow Rate FiO2 11/05/20 09:00 97.7 82 18 162/74 (103) 96 Room Air 11/03/20 00:15 10.0 50 I&O- Last 24 Hours up to 6 AM 11/05/20 05:59 Intake Total 1530 ml Output Total 2753 ml Balance -1223 ml LATOYA CHO MD Nov 05, 2020 09:09
[2020-11-05 14:00] VITALS: BP 144/80
[2020-11-05] MEDS: NICOTINE 21MG/24HR 1 EA TRANSDERMAL TD SCH (20:52)
[2020-11-05 22:00] VITALS: BP 141/81
[2020-11-06] MEDS: PIPERACILLIN/TAZOBACTAM SOD 4.5 GM in D5W MINI-BAG PLUS 50 ML IV SCH ×4 (03:35→21:00)
[2020-11-06] MEDS: METOCLOPRAMIDE INJ 10MG/2ML VIAL (J2765 PER 1) IV SCH (05:00)
[2020-11-06 06:00] VITALS: BP 141/82
[2020-11-06 06:37] LABS: HEMATOCRIT 34.3 % (42.0-52.0); HEMOGLOBIN 10.1 g/dl (13.5-17.5); MEAN CORPUSCULAR HEMOGLOBIN 25.8 pg (27.0-33.0); MEAN CORPUSCULAR HGB CONC 29.4 g/dl (32.0-36.5); MEAN CORPUSCULAR VOLUME 87.7 fl (80.0-96.0); PLATELET COUNT, AUTOMATED 240 10^3/uL (150-450); RED BLOOD COUNT 3.91 10^6/uL (4.30-6.10); WHITE BLOOD COUNT 9.2 10^3/uL (4.0-10.0)
[2020-11-06] MEDS: HumaLOG INSULIN (NovoLOG) PER UNIT SC SCH ×4 (07:01→21:00)
[2020-11-06 07:02] LABS: BLOOD UREA NITROGEN 8 MG/DL (7-18); C REACTIVE PROTEIN QUANTITATIV 3.92 MG/DL (0.00-0.30); CALCIUM LEVEL 7.8 MG/DL (8.5-10.1); CARBON DIOXIDE LEVEL 28 MEQ/L (21-32); CHLORIDE LEVEL 110 MEQ/L (98-107); CREATININE FOR GFR 1.21 MG/DL (0.70-1.30); GLOMERULAR FILTRATION RATE > 60.0 (>60); GLUCOSE, FASTING 113 MG/DL (70-100); POTASSIUM SERUM 3.3 MEQ/L (3.5-5.1); SODIUM LEVEL 143 MEQ/L (136-145)
[2020-11-06] MEDS ORDERED: METOCLOPRAMIDE INJ 10MG/2ML VIAL (J2765 PER 1) IV PRN (07:50)
[2020-11-06] MEDS ORDERED: POTASSIUM CHLORIDE 10 MEQ SR TABLET PO ONE (08:00)
[2020-11-06] MEDS: LEVEMIR (INSULIN DETEMIR) 1 UNITS/0.01ML SC SCH (09:00)
[2020-11-06] MEDS: PANTOPRAZOLE 40MG TAB (PROTONIX) PO SCH (09:33)
[2020-11-06] MEDS: FERROUS SULFATE 325MG TAB PO SCH ×2 (09:33→21:00)
[2020-11-06] MEDS: CYANOCOBALAMIN 500 MCG TAB PO SCH (09:33)
[2020-11-06] MEDS: LACTOBACILLUS ACIDOPHILUS CAP (BACID) PO SCH ×2 (09:33→18:33)
[2020-11-06] MEDS: NYSTATIN 100,000 UNITS/GM TOPICAL PWD 15 GM TOP SCH ×2 (09:34→21:01)
[2020-11-06] MEDS: LACTIC ACID 12% LOTION 225 GM BTL TOP SCH (09:34)
[2020-11-06] MEDS: VANICREAM MOISTURIZING SKIN CREAM 113GM TUBE TOP SCH ×2 (09:35→21:02)
--- NOTE | 2020-11-06 11:34 | IPNPDOC ---
Subjective Date Seen The patient was seen on 11/06/20. Subjective Chief Complaint/HPI No new issues overnight. Difficulty in maintaining suction in the wound vac which was changed on 11/04/20. No fever or chills, tolerating diet. Not using the CPAP. Objective Physical Examination General Exam: Positive: Alert, Cooperative, No Acute Distress ENT Exam: Positive: Atraumatic, Mucous membr. moist/pink, Pharynx Normal Chest Exam: Positive: Clear to auscultation, Normal air movement Heart Exam: Positive: Rate Normal, Regular Rhythm, Normal S1, Normal S2; Negative: Murmurs, Rubs Abdomen Exam: Positive: Normal bowel sounds, Soft, Other (He has a large pannus and several skin folds obscuring his groin.); Negative: Tenderness Extremity Exam: Positive: Edema, Other (Chronic skin changes in the b/l lower ext, dry skin. 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 Toby's gas gangrene involving right scrotum, inguinal region extending towards the perineum/buttock and upwards toward the flank with a subcutaneous abscess: POD 6 from third surgery for debridement of necrotized groin/right scrotum and perineum/buttocks Abscess GS above, Cx showing Granulicatela, now also showing coag neg staph and some yeast BCx NG Zosyn, probiotic, pain control, wound care General surgery following, with vac in place. Dr. Lares consulted for additional recommendations on right groin wound. Shortness of breath multifactorial due to ARJUN, obesity hypoventilation syndrome, HFpEF drops O2 when sleeping. Not using the CPAP here, reports the mask straps does not fit and gets tangled in his hair. held home lasix. will restart as needed. Diastolic CHF Echo with EF of 65%, grade 2 diastolic dysfunction.No wall motion abnormality. Poor visualization due to body habitus. lasix prn Anemia likely multifactorial for iron deficiency and Vitamin B12 Low iron Low Vitamin B12 C/w supplementation DM type II likely uncontrolled 2/2 to infection, surgery HbA1c 8.3, BS better controlled C/w AM levemir, ISS, FS AC/HS consistent carb diet ARJUN not using the hospital CPAP. Cannot bring his home CPAP. Class 3 obesity BMI 75.5 complicates care Patient was to be referred to bariatric surgery last year ;however, due to COVID this did not happen. GERD PPI Hx of UE DVT, DVT px Lovenox BID will restart eliquis when no more surgical interventions planned. Resolved issues: Sepsis due to Toby's gangrene Small bowel ileus post-operatively and possible gastroparesis: VINEET Hypophosphatemia Hypotension likely 2/2 to sepsis , dehydration and (post-op) anesthesia Plan/VTE VTE Prophylaxis Ordered?: Yes VS, I&O, 24H, Fishbone Vital Signs/I&O Vital Signs Date Time Temp Pulse Resp B/P (MAP) Pulse Ox O2 Delivery O2 Flow Rate FiO2 11/06/20 06:00 98.6 99 18 141/82 (101) 100 Room Air 11/03/20 00:15 10.0 50 I&O- Last 24 Hours up to 6 AM 11/06/20 06:00 Intake Total 1250 ml Output Total 1375 ml Balance -125 ml Laboratory Data 24H LABS Laboratory Tests 2 11/05/20 11:39: Bedside Glucose (Misc Panel) 109H 11/05/20 16:39: Bedside Glucose (Misc Panel) 96 11/05/20 20:38: Bedside Glucose (Misc Panel) 120H 11/06/20 06:17: Nucleated Red Blood Cells % (auto) 0.0, Anion Gap 5L, Glomerular Filtration Rate > 60.0, Calcium Level 7.8L, C-Reactive Protein, Quantitative 3.92H 11/06/20 06:22: Bedside Glucose (Misc Panel) 102 CBC/BMP Laboratory Tests 11/06/20 06:17 Microbiology Microbiology 10/31/20 Anaerobic Culture - Final, Complete 10/31/20 Gram Stain - Final, Complete 10/31/20 Wound Culture - Final, Complete Staphylococcus Sp Coag Neg Yeast Like Organism KAPIL OCAMPO MD Nov 06, 2020 11:35
--- NOTE | 2020-11-06 12:45 | IPNPDOC ---
Text Note Date of Service The patient was seen on 11/06/20. NOTE Gen. surgery. Dr. Scott The patient is a 50-year-old male status post emergent debridement of a necrotizing right groin soft tissue infection 10/23/[address] Scott, atus post incision and drainage of necrotizing fasciitis and Toby's gangrene 10/25/[address] Scott. Wound vac lost suction last PM and had to be removed, now with wet to dry dressing. Afebrile, VSS Abdomen obese, soft Right groin with wet to dry dressing currently. WBC 9.2, hemoglobin 10.1, platelets 240 A/P Necrotizing fasciitis and Toby's gangrene status post debridement 3, wound VAC changed 11/04/[address] Scott but lost suction and was removed, now with wet to dry dressing. Plan is for wound VAC change with Dr. Lares in OR. IV Zosyn. Continue to monitor. BMI 81.3. Complicates care. VS,Fishbone, I+O VS, Fishbone, I+O Laboratory Tests 11/06/20 06:17 Vital Signs Date Time Temp Pulse Resp B/P (MAP) Pulse Ox O2 Delivery O2 Flow Rate FiO2 11/06/20 06:00 98.6 99 18 141/82 (101) 100 Room Air 11/03/20 00:15 10.0 50 I&O- Last 24 Hours up to 6 AM 11/06/20 06:00 Intake Total 1250 ml Output Total 1375 ml Balance -125 ml Preethi Mortensen Nov 06, 2020 12:45 MONICA SCOTT MD Nov 25, 2020 00:12
[2020-11-06 14:00] VITALS: BP 137/81
[2020-11-06] MEDS: NICOTINE 21MG/24HR 1 EA TRANSDERMAL TD SCH (21:00)
[2020-11-06 22:00] VITALS: BP 138/83
[2020-11-07] MEDS: PIPERACILLIN/TAZOBACTAM SOD 4.5 GM in D5W MINI-BAG PLUS 50 ML IV SCH ×3 (04:13→09:24)
[2020-11-07 06:00] VITALS: BP 136/80
[2020-11-07] MEDS: HumaLOG INSULIN (NovoLOG) PER UNIT SC SCH ×4 (07:50→21:00)
[2020-11-07 09:00] VITALS: BP 132/79
[2020-11-07] MEDS: DOXYCYCLINE HYCLATE 100MG TABLET PO SCH ×2 (09:00→21:13)
[2020-11-07] MEDS: FERROUS SULFATE 325MG TAB PO SCH ×2 (09:22→17:22)
[2020-11-07] MEDS: LACTOBACILLUS ACIDOPHILUS CAP (BACID) PO SCH ×2 (09:22→17:22)
[2020-11-07] MEDS: PANTOPRAZOLE 40MG TAB (PROTONIX) PO SCH (09:22)
[2020-11-07] MEDS: CYANOCOBALAMIN 500 MCG TAB PO SCH (09:23)
[2020-11-07] MEDS: VANICREAM MOISTURIZING SKIN CREAM 113GM TUBE TOP SCH ×2 (09:25→21:14)
[2020-11-07] MEDS: NYSTATIN 100,000 UNITS/GM TOPICAL PWD 15 GM TOP SCH ×2 (09:25→21:14)
[2020-11-07] MEDS: LACTIC ACID 12% LOTION 225 GM BTL TOP SCH (09:26)
[2020-11-07] MEDS: LEVEMIR (INSULIN DETEMIR) 1 UNITS/0.01ML SC SCH (09:27)
[2020-11-07 14:00] VITALS: BP_SYST 139; BP_SYST 143; BP_DIAS 83; BP_DIAS 84
[2020-11-07] MEDS: metroNIDAZOLE (FLAGYL) 500MG TABLET PO SCH ×2 (14:42→21:13)
--- NOTE | 2020-11-07 16:13 | IPNPDOC ---
Subjective Date Seen The patient was seen on 11/07/20. Subjective Chief Complaint/HPI Patient's oshea was changed on 11/07/20, Wound vac seal has been poor so its off, debridement at bedside today. No fever or chills. No stool incontinence any more. Objective Physical Examination General Exam: Positive: Alert, Cooperative, No Acute Distress ENT Exam: Positive: Atraumatic, Mucous membr. moist/pink, Pharynx Normal Chest Exam: Positive: Clear to auscultation, Normal air movement Heart Exam: Positive: Rate Normal, Regular Rhythm, Normal S1, Normal S2; Negative: Murmurs, Rubs Abdomen Exam: Positive: Normal bowel sounds, Soft, Other (He has a large pannus and several skin folds obscuring his groin.); Negative: Tenderness Extremity Exam: Positive: Edema, Other (Chronic skin changes in the b/l lower ext, dry skin. 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 Toby's gas gangrene involving right scrotum, perineum and buttock in the back and right inguinal region extending upwards toward the flank and lateral aspect of the right thigh in the front with a subcutaneous abscess: S/p multiple debridements of necrotized groin/right scrotum and perineum/buttocks total 4 third surgery till now. Abscess grew several anaerobic organisms and staph hominis in the aerobic bottle received 2 weeks of Zosyn, Now switched to metronidazole and doxycycline. General surgery following, Dr. Lares consulted for additional recommendations on right groin wound. Shortness of breath multifactorial due to ARJUN, obesity hypoventilation syndrome, HFpEF drops O2 when sleeping. Not using the CPAP here, reports the mask straps does not fit and gets tangled in his hair. Restart lasix Diastolic CHF Echo with EF of 65%, grade 2 diastolic dysfunction.No wall motion abnormality. Poor visualization due to body habitus. lasix Anemia likely multifactorial for iron deficiency and Vitamin B12 Low iron Low Vitamin B12 C/w supplementation DM type II likely uncontrolled 2/2 to infection, surgery HbA1c 8.3, BS better controlled C/w AM levemir, ISS, FS AC/HS consistent carb diet ARJUN not using the hospital CPAP. Cannot bring his home CPAP. Class 3 obesity BMI 75.5 complicates care Patient was to be referred to bariatric surgery last year ;however, due to COVID this did not happen. GERD PPI Hx of UE DVT, DVT px Lovenox BID will restart eliquis when no more surgical interventions planned. Resolved issues: Sepsis due to Toby's gangrene Small bowel ileus post-operatively and possible gastroparesis: VINEET Hypophosphatemia Hypotension likely 2/2 to sepsis , dehydration and (post-op) anesthesia Plan/VTE VTE Prophylaxis Ordered?: Yes VS, I&O, 24H, Fishbone Vital Signs/I&O Vital Signs Date Time Temp Pulse Resp B/P (MAP) Pulse Ox O2 Delivery O2 Flow Rate FiO2 11/07/20 14:00 97.3 87 20 143/84 (103) 95 Room Air 11/03/20 00:15 10.0 50 I&O- Last 24 Hours up to 6 AM 11/07/20 07:00 Intake Total 2300 ml Output Total 525 ml Balance 1775 ml Laboratory Data 24H LABS Laboratory Tests 2 11/06/20 16:38: Bedside Glucose (Misc Panel) 120H 11/06/20 20:03: Bedside Glucose (Misc Panel) 137H 11/07/20 05:47: Bedside Glucose (Misc Panel) 114H 11/07/20 06:51: C-Reactive Protein, Quantitative 3.13H 11/07/20 11:48: Bedside Glucose (Misc Panel) 96 Microbiology Microbiology 10/31/20 Anaerobic Culture - Final, Complete 10/31/20 Gram Stain - Final, Complete 10/31/20 Wound Culture - Final, Complete Staphylococcus Sp Coag Neg Yeast Like Organism KPAIL OCAMPO MD Nov 07, 2020 16:14
[2020-11-07] MEDS: FUROSEMIDE 20 MG TAB PO SCH (17:22)
--- NOTE | 2020-11-07 17:30 | IPNPDOC ---
Subjective General Date Seen: Nov 07, 2020 Subject Chief Complaint/History The patient is a 50-year-old male admitted with a reason for visit of Juancarlos,Panniculitis. S/p right groin debridement for necrotizing fasciitis. Doing well today. No pain. Wound vac was removed yesterday. No odor, no fever, chills. Current Medications Current Medications Current Medications Medications (Trade) Dose Ordered Sig/Alexandr Route PRN Reason Start Time Stop Time Status Last Admin Dose Admin Acetaminophen (Tylenol Tab) 650 mg Q4H PRN PO FEVER 10/23/20 03:45 10/23/20 08:02 Acetaminophen/ Hydrocodone Bitart (Anexsia, Dillon 7.5mg/325mg) 1 tab Q6H PO 10/23/20 12:00 10/25/20 11:24 DC 10/24/20 23:44 Al Hydrox/Mg Hydrox/Simethicone (Mylanta) 30 ml DAILY PRN PO DYSPEPSIA 10/23/20 03:45 Albuterol Sulfate (Proventil, Ventolin Hfa) 2 puff Q4H PRN INH SHORTNESS OF BREATH 10/23/20 06:45 Apixaban (Eliquis) 5 mg BID PO 10/23/20 09:00 10/23/20 11:27 DC Ceftaroline Fosamil 600 mg/ Dextrose 50 ml @ 50 mls/hr Q12H IV 10/23/20 17:00 10/23/20 09:17 DC Ceftriaxone Sodium 2 gm/ Dextrose 50 ml @ 100 mls/hr Q24H IV 10/23/20 11:00 10/23/20 11:27 DC 10/23/20 11:10 Clindamycin Phosphate 600 mg/ IV Miscellaneous Supplies 50 ml @ 100 mls/hr Q6H IV 10/23/20 15:00 10/25/20 14:27 DC 10/25/20 08:55 Cyanocobalamin (Vitamin B12) 1,000 mcg DAILY PO 10/25/20 09:00 11/07/20 09:23 Dextrose (Dextrose 50%) 25 ml ASDIRECTED PRN IV SEE LABEL COMMENTS 10/23/20 09:30 10/31/20 11:34 DC Dextrose (Dextrose 50%) 25 ml ASDIRECTED PRN IV SEE LABEL COMMENTS 10/31/20 19:15 Docusate Sodium (Colace) 100 mg BID PO 10/24/20 21:00 11/01/20 16:49 DC 10/31/20 10:12 Doxycycline Hyclate (Vibramycin) 100 mg BID PO 11/07/20 09:00 Emollient Cream (Vanicream) 1 dose BID TOP 10/23/20 21:00 11/07/20 09:25 Fentanyl Citrate (Sublimaze) 25 mcg Q5MP PRN IV PAIN LEVEL 5-10 10/24/20 00:15 10/24/20 01:14 DC Fentanyl Citrate (Sublimaze) 25 mcg Q5MP PRN IV PAIN LEVEL 5-10 10/25/20 11:00 10/25/20 12:00 DC Ferrous Sulfate (Ferrous Sulfate) 325 mg BID PO 10/24/20 21:00 11/07/20 12:32 DC 11/07/20 09:22 Ferrous Sulfate (Ferrous Sulfate) 325 mg BID@0600,1800 PO 11/07/20 18:00 11/07/20 17:22 Furosemide (Lasix) 20 mg DAILY PO 10/23/20 09:00 10/23/20 11:06 DC Furosemide (Lasix) 20 mg DAILY PO 11/07/20 09:00 11/07/20 17:22 Glucagon (Glucagon) 1 mg ASDIRECTED PRN SC SEE LABEL COMMENTS 10/23/20 09:30 10/31/20 11:34 DC Glucagon (Glucagon) 1 mg ASDIRECTED PRN SC SEE LABEL COMMENTS 10/31/20 19:15 Glucose (Glucose) 16 GM ASDIRECTED PRN PO SEE LABEL COMMENTS 10/23/20 09:30 10/31/20 11:34 DC Glucose (Glucose) 16 GM ASDIRECTED PRN PO SEE LABEL COMMENTS 10/31/20 19:15 Heparin Sodium (Porcine) (Heparin) 5,000 units Q8H SQ 10/23/20 14:00 10/23/20 15:06 DC Home Med (Med Rec Complete!) ASDIRECTED XX 10/23/20 04:00 10/23/20 03:53 DC Ibuprofen (Advil) 800 mg TID PO 10/25/20 09:00 11/01/20 08:29 DC 10/31/20 16:53 Ibuprofen (Advil) 800 mg TID PO 10/25/20 16:00 10/25/20 11:29 DC Imipenem/ Cilastatin Sodium 1000 mg/Dextrose 100 ml @ 100 mls/hr Q6H IV 10/23/20 11:25 10/23/20 11:40 DC Imipenem/ Cilastatin Sodium 1000 mg/Sodium Chloride 250 ml @ 250 mls/hr Q6H IV 10/23/20 14:00 10/25/20 14:27 DC 10/25/20 01:13 Insulin Detemir (Levemir Insulin) 10 units QAM SC 10/24/20 09:00 10/24/20 15:49 DC 10/24/20 08:21 Insulin Detemir (Levemir Insulin) 16 units QAM SC 10/25/20 09:00 10/26/20 16:40 DC 10/25/20 12:06 Insulin Detemir (Levemir Insulin) 20 units QAM SC 10/27/20 09:00 11/07/20 09:27 Insulin Human Lispro (HumaLOG INSULIN) SEE PROTOCOL TABLE AC OH 10/23/20 12:00 10/23/20 14:57 DC Insulin Human Lispro (HumaLOG INSULIN) SEE PROTOCOL TABLE AC OH 10/24/20 12:00 10/26/20 06:09 DC 10/25/20 17:26 Insulin Human Lispro (HumaLOG INSULIN) SEE PROTOCOL TABLE AC OH 11/05/20 07:30 11/07/20 07:50 Insulin Human Lispro (HumaLOG INSULIN) SEE PROTOCOL TABLE ACHS OH 11/03/20 22:00 11/04/20 22:22 DC Insulin Human Lispro (HumaLOG INSULIN) SEE PROTOCOL TABLE Q6H OH 10/23/20 18:00 10/24/20 10:52 DC 10/24/20 05:51 Insulin Human Lispro (HumaLOG INSULIN) SEE PROTOCOL TABLE Q6H OH 10/26/20 06:00 10/31/20 11:34 DC 10/27/20 11:53 Insulin Human Lispro (HumaLOG INSULIN) SEE PROTOCOL TABLE Q6H OH 11/01/20 06:00 11/03/20 22:02 DC 11/03/20 17:18 Insulin Human Lispro (HumaLOG INSULIN) SEE PROTOCOL TABLE Q6H OH 11/01/20 09:00 11/01/20 09:27 DC Insulin Human Lispro (HumaLOG INSULIN) SEE PROTOCOL TABLE QHS SC 10/23/20 21:00 10/23/20 14:57 DC Insulin Human Lispro (HumaLOG INSULIN) [facility] 10/24[facility] 21:00 10/26/20 06:10 DC Insulin Human Lispro (HumaLOG INSULIN) [facility]OL [facility] 21:00 Ketorolac Tromethamine (ToRADol) 15 mg Q6H PRN IV moderate PAIN OR FEVER 10/23/20 12:20 10/23/20 23:58 DC Lactated Ringer's 1,000 ml @ 70 mls/hr [id number] IV 10/23/20 03:45 10/23/20 09:17 DC Lactated Ringer's 1,000 ml @ 100 mls/hr Q10H IV 10/24/20 00:15 10/24/20 01:14 DC Lactated Ringer's 1,000 ml @ 100 mls/hr Q10H IV 10/25/20 11:00 10/25/20 12:00 DC Lactated Ringer's 1,000 ml @ 175 mls/hr [id number] IV 10/24/20 00:05 11/05/20 09:06 DC 11/05/20 06:41 Lactic Acid (Lac-Hydrin 12% Lotion) apply to feet and callu... DAILY TOP 10/31/20 09:00 11/07/20 09:26 Lactobacillus Acidophilus (Bacid) 1 ea BIDWM PO 10/23/20 18:00 11/07/20 17:22 Loperamide HCl (Imodium) 2 mg ASDIRECTED PRN PO DIARRHEA 11/03/20 11:20 11/04/20 00:15 Magnesium Hydroxide (Milk Of Magnesia) 30 ml DAILY PRN PO CONSTIPATION 10/23/20 03:45 11/01/20 16:49 DC 10/25/20 22:28 Metoclopramide HCl (REGLAN INJection) 10 mg Q6H IV 10/30/20 11:00 11/06/20 07:49 DC 11/04/20 03:57 Metoclopramide HCl (REGLAN INJection) 10 mg Q6HP PRN IV NAUSEA OR VOMITING 10/24/20 00:15 10/24/20 01:14 DC Metoclopramide HCl (REGLAN INJection) 10 mg Q6HP PRN IV NAUSEA OR VOMITING 10/25/20 11:00 10/25/20 12:00 DC Metoclopramide HCl (REGLAN INJection) 10 mg Q6HP PRN IV NAUSEA OR VOMITING 11/06/20 07:50 11/07/20 16:05 DC Metoclopramide HCl (REGLAN INJection) 10 mg TID IV 10/24/20 16:00 10/27/20 14:07 DC 10/25/20 22:28 Metoclopramide HCl (REGLAN INJection) 10 mg TIDP PRN IV NAUSEA OR VOMITING 10/27/20 14:05 10/30/20 10:19 DC Metronidazole (Flagyl) 500 mg Q8H PO 11/07/20 14:00 11/07/20 14:42 Morphine Sulfate (Morphine Sulfate Inj) 1 mg Q4H PRN IV MODERATE PAIN (PS 5-7) 10/23/20 11:25 10/23/20 23:58 DC Morphine Sulfate (Morphine Sulfate Inj) 4 mg Q3HP PRN IV SEVERE PAIN (PS 8-10) 10/24/20 00:05 10/25/20 11:24 DC Nicotine (Nicoderm Cq 21mg) 1 patch QHS TD 10/23/20 21:00 10/27/20 21:15 Nystatin (Mycostatin Powder, Nystop) Apply to abominal and gr... BID TOP 11/01/20 21:00 11/07/20 09:25 Ondansetron HCl (ZOFRAN INJection) 4 mg Q4HP PRN IV NAUSEA OR VOMITING 10/24/20 00:15 10/24/20 01:14 DC Ondansetron HCl (ZOFRAN INJection) 4 mg Q4HP PRN IV NAUSEA OR VOMITING 10/25/20 11:00 10/25/20 12:00 DC Ondansetron HCl (ZOFRAN INJection) 4 mg Q4HP PRN IV NAUSEA OR VOMITING 10/31/20 18:55 11/07/20 16:05 DC 11/01/20 01:06 Ondansetron HCl (Zofran Odt) 4 mg Q6H SL 10/25/20 06:00 10/31/20 18:56 DC 10/31/20 16:53 Ondansetron HCl (Zofran) 4 mg Q6HP PRN PO NAUSEA OR VOMITING 10/24/20 15:50 10/31/20 18:56 DC 10/25/20 15:01 Oxycodone/ Acetaminophen (Percocet 5mg/ 325mg Tablet) 1 tab ASDIRECTED PRN PO PAIN LEVEL 1-4 10/24/20 00:15 10/24/20 01:14 DC Oxycodone/ Acetaminophen (Percocet 5mg/ 325mg Tablet) 1 tab ASDIRECTED PRN PO PAIN LEVEL 1-4 10/25/20 11:00 10/25/20 12:00 DC Oxycodone/ Acetaminophen (Percocet 5mg/ 325mg Tablet) 1 tab Q4HP PRN PO MODERATE PAIN (PS 5-7) 10/24/20 00:05 10/29/20 09:57 Oxycodone/ Acetaminophen (Percocet 5mg/ 325mg Tablet) 2 tab Q4HP PRN PO SEVERE PAIN (PS 8-10) 10/24/20 00:05 10/30/20 07:54 Pantoprazole Sodium (Protonix) 40 mg DAILY IV 10/24/20 09:00 11/06/20 07:49 DC 11/05/20 10:16 Pantoprazole Sodium (Protonix) 40 mg DAILY PO 11/06/20 09:00 11/07/20 09:22 Pantoprazole Sodium (Protonix) 40 mg QHS PO 10/23/20 21:00 10/23/20 14:57 DC Phenol (Chloraseptic Cobb) 1 spray Q2HP PRN MT SORE THROAT 10/26/20 06:05 Piperacillin Sod/ Tazobactam Sod 4.5 gm/Dextrose 50 ml @ 50 mls/hr Q6H IV 10/25/20 15:00 11/07/20 12:24 DC 11/07/20 04:13 Sodium Chloride 1,000 ml @ 200 mls/hr Q5H IV 10/23/20 09:15 10/24/20 00:08 DC 10/23/20 11:07 Sodium Chloride (Nacl 0.9%) 1,000 ml BOLUS IV 10/23/20 03:45 10/23/20 03:46 DC 10/23/20 07:39 Vancomycin HCl 500 mg/Dextrose 110 ml @ 110 mls/hr Q8H IV 10/23/20 13:00 10/24/20 13:43 DC 10/24/20 06:45 Vancomycin HCl 500 mg/Dextrose 110 ml @ 110 mls/hr Q8H IV 10/24/20 21:00 10/25/20 09:57 DC 10/25/20 04:24 Vancomycin HCl 500 mg/Dextrose 110 ml @ 110 mls/hr Q8H IV 10/25/20 14:00 10/25/20 14:27 DC 10/25/20 14:16 Vancomycin HCl 750 mg/IV Miscellaneous Supplies 1 each/ Dextrose 275 ml @ 275 mls/hr Q8H IV 10/23/20 12:00 10/24/20 18:37 DC 10/24/20 12:18 Vancomycin HCl 750 mg/IV Miscellaneous Supplies 1 each/ Dextrose 275 ml @ 275 mls/hr Q8H IV 10/24/20 13:00 10/24/20 18:37 DC 10/24/20 14:32 Vancomycin HCl 750 mg/IV Miscellaneous Supplies 1 each/ Sodium Chloride 275 ml @ 275 mls/hr Q8H IV 10/25/20 12:00 10/25/20 12:41 DC Vancomycin HCl 750 mg/IV Miscellaneous Supplies 1 each/ Sodium Chloride 275 ml @ 275 mls/hr Q8H IV 10/25/20 13:00 10/25/20 12:41 DC Vancomycin HCl 750 mg/IV Miscellaneous Supplies 1 each/ Sodium Chloride 275 ml @ 275 mls/hr Q8H IV 10/25/20 13:00 10/25/20 14:27 DC 10/25/20 13:23 Vancomycin HCl 1000 mg/IV Miscellaneous Supplies 1 each/ Dextrose 270 ml @ 270 mls/hr Q12H IV 10/23/20 07:00 10/23/20 11:01 DC Vancomycin HCl 1000 mg/IV Miscellaneous Supplies 1 each/ Dextrose 270 ml @ 270 mls/hr Q8H IV 10/24/20 20:00 10/25/20 09:57 DC 10/25/20 03:07 Allergies Coded Allergies: carisoprodol (Verified Allergy, Intermediate, rash, 01/23/20) Objective Physical Examination Examination GENERAL APPEARANCE:Patient seen, laying in bed, awake, alert, and oriented. Comfortable, in no acute distress. SKIN: Warm and moist. Right groin large full thickness open wound. Granulating tissue. No necrosis, no odor. Moderate clear drainage. LUNGS: Clear to auscultation bilaterally. No wheezing appreciated. HEART: No chest wall abnormalities. Regular rate and rhythm with no murmurs appreciated. ABDOMEN: Abdomen is soft, non-tender, non-distended. EXTREMITIES: No edema identified. No calf tenderness. Vital Signs Vital Signs Date Time Temp Pulse Resp B/P (MAP) Pulse Ox O2 Delivery O2 Flow Rate FiO2 11/07/20 14:00 97.3 87 20 143/84 (103) 95 Room Air 11/03/20 00:15 10.0 50 I&Os I&O- Last 24 Hours up to 6 AM 11/07/20 06:00 Intake Total 2300 ml Output Total 525 ml Balance 1775 ml Laboratory Data Labs 24H Laboratory Tests 2 11/06/20 20:03: Bedside Glucose (Misc Panel) 137H 11/07/20 05:47: Bedside Glucose (Misc Panel) 114H 11/07/20 06:51: C-Reactive Protein, Quantitative 3.13H 11/07/20 11:48: Bedside Glucose (Misc Panel) 96 11/07/20 17:09: Bedside Glucose (Misc Panel) 104 Microbiology Microbiology 10/31/20 Anaerobic Culture - Final, Complete 10/31/20 Gram Stain - Final, Complete 10/31/20 Wound Culture - Final, Complete Staphylococcus Sp Coag Neg Yeast Like Organism Impression Right groin open wound. Improving. Clean granulating tissue. Continue with wound vac with granuliform at 125 mm Hg. If unable to keep seal line the wound bed with Hydrofera blue, pack with Kerlix. Change every other day. Wound vac change Wednesday and .. No surgical intervention at this time. Continue with wound care to allow the wound to granulate and reduce in size. Findings discussed with patient. Will follow. Plan / VTE VTE Prophylaxis Ordered?: Yes SUZE DAMICO DO Nov 07, 2020 17:30
[2020-11-07 19:49] VITALS: BP 142/75
[2020-11-07] MEDS: NICOTINE 21MG/24HR 1 EA TRANSDERMAL TD SCH (21:00)
[2020-11-08 05:49] VITALS: BP 154/80
[2020-11-08] MEDS: metroNIDAZOLE (FLAGYL) 500MG TABLET PO SCH ×3 (05:55→21:21)
[2020-11-08] MEDS: FERROUS SULFATE 325MG TAB PO SCH ×2 (05:56→17:54)
[2020-11-08 06:39] LABS: BASO # 0.1 10^3/uL (0.0-0.2); BASO % 0.8 % (0.0-1.0); EOS # 0.4 10^3/uL (0.0-0.5); EOS % 4.3 % (0.0-3.0); HEMATOCRIT 33.9 % (42.0-52.0); HEMOGLOBIN 10.2 g/dl (13.5-17.5); LYMPH # 2.1 10^3/uL (1.5-5.0); LYMPH % 24.3 % (24.0-44.0); MEAN CORPUSCULAR HGB CONC 30.1 g/dl (32.0-36.5); MEAN CORPUSCULAR VOLUME 89.7 fl (80.0-96.0); MONO # 0.8 10^3/uL (0.0-0.8); NEUTROPHILS # 5.2 10^3/uL (1.5-8.5); NEUTROPHILS % 60.8 % (36.0-66.0); PLATELET COUNT, AUTOMATED 223 10^3/uL (150-450); RED BLOOD COUNT 3.78 10^6/uL (4.30-6.10); WHITE BLOOD COUNT 8.6 10^3/uL (4.0-10.0)
[2020-11-08 06:56] LABS: BLOOD UREA NITROGEN 8 MG/DL (7-18); C REACTIVE PROTEIN QUANTITATIV 2.07 MG/DL (0.00-0.30); CALCIUM LEVEL 7.9 MG/DL (8.5-10.1); CARBON DIOXIDE LEVEL 27 MEQ/L (21-32); CHLORIDE LEVEL 109 MEQ/L (98-107); CREATININE FOR GFR 1.25 MG/DL (0.70-1.30); GLOMERULAR FILTRATION RATE > 60.0 (>60); GLUCOSE, FASTING 107 MG/DL (70-100); POTASSIUM SERUM 3.6 MEQ/L (3.5-5.1); SODIUM LEVEL 141 MEQ/L (136-145)
[2020-11-08] MEDS: HumaLOG INSULIN (NovoLOG) PER UNIT SC SCH ×4 (07:30→20:43)
[2020-11-08] MEDS: FUROSEMIDE 20 MG TAB PO SCH (08:57)
[2020-11-08] MEDS: CYANOCOBALAMIN 500 MCG TAB PO SCH (08:57)
[2020-11-08] MEDS: DOXYCYCLINE HYCLATE 100MG TABLET PO SCH ×2 (08:57→21:21)
[2020-11-08] MEDS: LACTOBACILLUS ACIDOPHILUS CAP (BACID) PO SCH ×2 (08:57→17:54)
[2020-11-08] MEDS: PANTOPRAZOLE 40MG TAB (PROTONIX) PO SCH (08:57)
[2020-11-08] MEDS: LEVEMIR (INSULIN DETEMIR) 1 UNITS/0.01ML SC SCH (08:58)
[2020-11-08] MEDS: VANICREAM MOISTURIZING SKIN CREAM 113GM TUBE TOP SCH ×2 (09:02→21:22)
[2020-11-08] MEDS: NYSTATIN 100,000 UNITS/GM TOPICAL PWD 15 GM TOP SCH ×2 (09:03→21:22)
[2020-11-08] MEDS: LACTIC ACID 12% LOTION 225 GM BTL TOP SCH (09:03)
--- NOTE | 2020-11-08 09:44 | IPNPDOC ---
Subjective Date Seen The patient was seen on 11/08/20. Subjective Chief Complaint/HPI No complaints this morning. Noted to be dropping sats to 60s when sleeping. Unfortunately he is not using the hospital CPAP. Patient reports that the mask does not fit. There is no one able to bring his own machine and mask from his apartment. Ambulating well in the room and back and forth to the bathroom. Wound vac attached again yesterday. Objective Physical Examination General Exam: Positive: Alert, Cooperative, No Acute Distress ENT Exam: Positive: Atraumatic, Mucous membr. moist/pink, Pharynx Normal Chest Exam: Positive: Clear to auscultation, Normal air movement Heart Exam: Positive: Rate Normal, Regular Rhythm, Normal S1, Normal S2; Negative: Murmurs, Rubs Abdomen Exam: Positive: Normal bowel sounds, Soft, Other (He has a large pannus and several skin folds obscuring his groin.); Negative: Tenderness Extremity Exam: Positive: Edema, Other (Chronic skin changes in the b/l lower ext, dry skin. 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 Toby's gas gangrene and necrotizing fascitis involving right scrotum, perineum and buttock in the back and right inguinal region extending upwards toward the flank and lateral aspect of the right thigh in the front with a subcutaneous abscess: S/p multiple debridement of necrotized groin/right scrotum and perineum/buttocks total 3 surgery till now. Abscess grew several anaerobic organisms and staph hominis in the aerobic bottle received 2 weeks of Zosyn, Now switched to metronidazole and doxycycline. General surgery following, Dr. Lares consulted for additional recommendations on right groin wound. As per Dr Lares: Right groin open wound. Improving. Clean granulating tissue. Continue with wound vac with granuliform at 125 mm Hg. If unable to keep seal line the wound bed with Hydrofera blue, pack with Kerlix. Change every other day. Wound vac change Wednesday and .. Shortness of breath multifactorial due to ARJUN, obesity hypoventilation syndrome, HFpEF drops O2 when sleeping. Not using the CPAP here, reports the mask straps does not fit and gets tangled in his hair. Restart lasix Diastolic CHF Echo with EF of 65%, grade 2 diastolic dysfunction.No wall motion abnormality. Poor visualization due to body habitus. lasix Anemia likely multifactorial for iron deficiency and Vitamin B12 Low iron Low Vitamin B12 C/w supplementation DM type II likely uncontrolled 2/2 to infection, surgery HbA1c 8.3, BS better controlled C/w AM levemir, ISS, FS AC/HS consistent carb diet ARJUN not using the hospital CPAP. Cannot bring his home CPAP. Class 3 obesity BMI 75.5 complicates care Patient was to be referred to bariatric surgery last year ;however, due to COVID this did not happen. GERD PPI Hx of UE DVT, DVT px Lovenox BID will restart eliquis when no more surgical interventions planned. Resolved issues: Sepsis due to Toby's gangrene Small bowel ileus post-operatively and possible gastroparesis: VINEET Hypophosphatemia Hypotension likely 2/2 to sepsis , dehydration and (post-op) anesthesia Plan/VTE VTE Prophylaxis Ordered?: Yes VS, I&O, 24H, Fishbone Vital Signs/I&O Vital Signs Date Time Temp Pulse Resp B/P (MAP) Pulse Ox O2 Delivery O2 Flow Rate FiO2 11/08/20 05:49 98.8 82 20 154/80 (104) 92 Room Air 11/03/20 00:15 10.0 50 I&O- Last 24 Hours up to 6 AM 11/08/20 06:00 Intake Total 2516 ml Output Total 1795 ml Balance 721 ml Laboratory Data 24H LABS Laboratory Tests 2 11/07/20 11:48: Bedside Glucose (Misc Panel) 96 11/07/20 17:09: Bedside Glucose (Misc Panel) 104 11/07/20 19:57: Bedside Glucose (Misc Panel) 129H 11/08/20 06:18: Immature Granulocyte % (Auto) 0.8, Neutrophils (%) (Auto) 60.8, Lymphocytes (%) (Auto) 24.3, Monocytes (%) (Auto) 9.0H, Eosinophils (%) (Auto) 4.3H, Basophils (%) (Auto) 0.8, Neutrophils # (Auto) 5.2, Lymphocytes # (Auto) 2.1, Monocytes # (Auto) 0.8, Eosinophils # (Auto) 0.4, Basophils # (Auto) 0.1, Nucleated Red Blood Cells % (auto) 0.0, Anion Gap 5L, Glomerular Filtration Rate > 60.0, Calcium Level 7.9L, C-Reactive Protein, Quantitative 2.07H CBC/BMP Laboratory Tests 11/08/20 06:18 Microbiology Microbiology 10/31/20 Anaerobic Culture - Final, Complete 10/31/20 Gram Stain - Final, Complete 10/31/20 Wound Culture - Final, Complete Staphylococcus Sp Coag Neg Yeast Like Organism KAPIL OCAMPO MD Nov 08, 2020 09:44
[2020-11-08 14:00] VITALS: BP 118/74
[2020-11-08 20:07] VITALS: BP 142/75
[2020-11-08] MEDS: NICOTINE 21MG/24HR 1 EA TRANSDERMAL TD SCH (21:00)
[2020-11-08] MEDS: ACETAMINOPHEN TAB 650MG DOSE (2X325MG) PO PRN (21:21)
[2020-11-09 05:00] VITALS: BP 142/76
[2020-11-09] MEDS: FERROUS SULFATE 325MG TAB PO SCH ×2 (05:08→17:35)
[2020-11-09] MEDS: metroNIDAZOLE (FLAGYL) 500MG TABLET PO SCH ×3 (05:08→21:02)
[2020-11-09] MEDS: LEVEMIR (INSULIN DETEMIR) 1 UNITS/0.01ML SC SCH (08:38)
[2020-11-09] MEDS: FUROSEMIDE 20 MG TAB PO SCH (08:38)
[2020-11-09] MEDS: HumaLOG INSULIN (NovoLOG) PER UNIT SC SCH ×4 (08:38→21:00)
[2020-11-09] MEDS: LACTOBACILLUS ACIDOPHILUS CAP (BACID) PO SCH ×2 (08:38→17:35)
[2020-11-09] MEDS: CYANOCOBALAMIN 500 MCG TAB PO SCH (08:39)
[2020-11-09] MEDS: PANTOPRAZOLE 40MG TAB (PROTONIX) PO SCH (08:39)
[2020-11-09] MEDS: DOXYCYCLINE HYCLATE 100MG TABLET PO SCH ×2 (08:39→21:01)
[2020-11-09] MEDS: LACTIC ACID 12% LOTION 225 GM BTL TOP SCH (08:40)
[2020-11-09] MEDS: NYSTATIN 100,000 UNITS/GM TOPICAL PWD 15 GM TOP SCH ×2 (08:40→21:02)
--- NOTE | 2020-11-09 10:00 | IPN ---
PROGRESS NOTE DATE: 11/09/2020 SUBJECTIVE: White count has normalized. The Wound-Vac is in place, it has not been sealing very well but I was able to get the seal back on it this morning. Otherwise, the drainage that he has is serous drainage. He still has a significant amount of edema in his lower extremities and his abdominal wall. He does not have as much pain as he had previously associated with dressing changes. IMPRESSION/PLAN: Patient has a wound that is slowly healing. At this point, there is no new surgical intervention necessary at this time. Anticipate the best way this will heal up is by using a Wound-Vac. I do however recommend that once this is healed up he should consider gastric bypass. Otherwise, continued supportive care is reasonable at this time.
[2020-11-09] MEDS: VANICREAM MOISTURIZING SKIN CREAM 113GM TUBE TOP SCH ×2 (10:45→21:02)
[2020-11-09 20:17] VITALS: BP 140/76
[2020-11-09] MEDS: NICOTINE 21MG/24HR 1 EA TRANSDERMAL TD SCH (20:54)
[2020-11-09] MEDS: ACETAMINOPHEN TAB 650MG DOSE (2X325MG) PO PRN (21:02)
[2020-11-10] MEDS: FERROUS SULFATE 325MG TAB PO SCH ×2 (05:41→17:32)
[2020-11-10] MEDS: metroNIDAZOLE (FLAGYL) 500MG TABLET PO SCH ×3 (05:41→20:59)
[2020-11-10 06:03] VITALS: BP 140/90
[2020-11-10 06:58] LABS: BASO # 0.1 10^3/uL (0.0-0.2); BASO % 0.8 % (0.0-1.0); EOS # 0.4 10^3/uL (0.0-0.5); HEMATOCRIT 34.8 % (42.0-52.0); HEMOGLOBIN 10.2 g/dl (13.5-17.5); LYMPH # 1.7 10^3/uL (1.5-5.0); LYMPH % 21.7 % (24.0-44.0); MEAN CORPUSCULAR HEMOGLOBIN 26.2 pg (27.0-33.0); MEAN CORPUSCULAR HGB CONC 29.3 g/dl (32.0-36.5); MEAN CORPUSCULAR VOLUME 89.5 fl (80.0-96.0); MONO # 0.6 10^3/uL (0.0-0.8); MONO % 7.6 % (2.0-8.0); NEUTROPHILS # 5.1 10^3/uL (1.5-8.5); NEUTROPHILS % 64.1 % (36.0-66.0); PLATELET COUNT, AUTOMATED 201 10^3/uL (150-450); RED BLOOD COUNT 3.89 10^6/uL (4.30-6.10)
[2020-11-10 07:24] LABS: BLOOD UREA NITROGEN 10 MG/DL (7-18); CARBON DIOXIDE LEVEL 31 MEQ/L (21-32); CHLORIDE LEVEL 106 MEQ/L (98-107); CREATININE FOR GFR 1.27 MG/DL (0.70-1.30); GLOMERULAR FILTRATION RATE > 60.0 (>60); GLUCOSE, FASTING 118 MG/DL (70-100); SODIUM LEVEL 141 MEQ/L (136-145)
[2020-11-10] MEDS: LEVEMIR (INSULIN DETEMIR) 1 UNITS/0.01ML SC SCH (08:15)
[2020-11-10] MEDS: DOXYCYCLINE HYCLATE 100MG TABLET PO SCH ×2 (08:16→20:59)
[2020-11-10] MEDS: HumaLOG INSULIN (NovoLOG) PER UNIT SC SCH ×4 (08:16→20:40)
[2020-11-10] MEDS: PANTOPRAZOLE 40MG TAB (PROTONIX) PO SCH (08:16)
[2020-11-10] MEDS: FUROSEMIDE 20 MG TAB PO SCH (08:17)
[2020-11-10] MEDS: LACTOBACILLUS ACIDOPHILUS CAP (BACID) PO SCH ×2 (08:17→17:32)
[2020-11-10] MEDS: NYSTATIN 100,000 UNITS/GM TOPICAL PWD 15 GM TOP SCH ×2 (08:18→21:00)
[2020-11-10] MEDS: CYANOCOBALAMIN 500 MCG TAB PO SCH (08:18)
[2020-11-10] MEDS: VANICREAM MOISTURIZING SKIN CREAM 113GM TUBE TOP SCH ×2 (08:19→21:00)
[2020-11-10] MEDS: LACTIC ACID 12% LOTION 225 GM BTL TOP SCH (08:19)
--- NOTE | 2020-11-10 14:25 | IPN ---
PROGRESS NOTE DATE: 11/10/2020 SUBJECTIVE: No new issues concerning his wound. Continues to have a significant amount of drainage. Appears to be serous drainage. Had a maximum temperature (T-max) of 99.2, but otherwise, from the drain standpoint, that his is major issue. Put out almost a liter yesterday. He is having bowel movements and has the Soto catheter still in place. His wound VAC is intact and no other current issues at this time. IMPRESSION/PLAN: Continue with wound VAC at this time and obviously, the question is whether to replace this on Wednesday and change it over to daily dressing changes to allow for him to more easily be discharged to home or whether he can be discharged to [facility] with wound VAC, which would be the best option for him for healing purposes, after, when he eventually does heal this up, he should very seriously consider gastric bypass to see if we can decrease the future morbidity that he would undoubtedly have associated with his obesity issues.
[2020-11-10] MEDS: NICOTINE 21MG/24HR 1 EA TRANSDERMAL TD SCH (20:39)
[2020-11-11 06:00] VITALS: BP 135/74
[2020-11-11] MEDS: FERROUS SULFATE 325MG TAB PO SCH ×2 (06:06→17:27)
[2020-11-11] MEDS: metroNIDAZOLE (FLAGYL) 500MG TABLET PO SCH ×3 (06:06→21:06)
[2020-11-11 08:30] VITALS: BP 139/77
[2020-11-11] MEDS: HumaLOG INSULIN (NovoLOG) PER UNIT SC SCH ×4 (08:45→20:53)
[2020-11-11] MEDS: LEVEMIR (INSULIN DETEMIR) 1 UNITS/0.01ML SC SCH (08:46)
[2020-11-11] MEDS: CYANOCOBALAMIN 500 MCG TAB PO SCH (08:47)
[2020-11-11] MEDS: DOXYCYCLINE HYCLATE 100MG TABLET PO SCH ×2 (08:47→21:06)
[2020-11-11] MEDS: FUROSEMIDE 20 MG TAB PO SCH (08:48)
[2020-11-11] MEDS: PANTOPRAZOLE 40MG TAB (PROTONIX) PO SCH (08:48)
[2020-11-11] MEDS: LACTOBACILLUS ACIDOPHILUS CAP (BACID) PO SCH ×2 (08:48→17:27)
[2020-11-11] MEDS: LACTIC ACID 12% LOTION 225 GM BTL TOP SCH (08:49)
[2020-11-11] MEDS: NYSTATIN 100,000 UNITS/GM TOPICAL PWD 15 GM TOP SCH ×2 (08:50→21:07)
[2020-11-11] MEDS: VANICREAM MOISTURIZING SKIN CREAM 113GM TUBE TOP SCH ×2 (08:51→21:07)
--- NOTE | 2020-11-11 11:43 | IPNPDOC ---
Text Note Date of Service The patient was seen on 11/11/20. NOTE Nurse reports having difficulty maintaining seal on the weekend needing to reinforce the medial side multiple times this weekend. I will concerned that if he gets transferred to custodial, they will continue to have problems maintaining seal with the wound VAC 70 incision to remove the wound VAC and go back to placing drawtex, Kerlix and ABDs. This will be changed every other day with soaking the wound with Vashe during the dressing change. Same routine can be done at the custodial where he will be transferred. He can transfer at any time appendicitis is available. Suggest arranging follow-up with wound care clinic as an outpatient once discharged. VS,Fishbone, I+O VS, Fishbone, I+O Vital Signs Date Time Temp Pulse Resp B/P (MAP) Pulse Ox O2 Delivery O2 Flow Rate FiO2 11/11/20 06:00 97.5 81 18 135/74 (94) Venturi Mask 10.0 50 11/10/20 06:03 100 I&O- Last 24 Hours up to 6 AM 11/11/20 05:59 Intake Total 2440 ml Output Total 1850 ml Balance 590 ml MONICA SCOTT MD Nov 11, 2020 11:43
[2020-11-11] MEDS: NICOTINE 21MG/24HR 1 EA TRANSDERMAL TD SCH (21:00)
[2020-11-11 22:00] VITALS: BP 128/82
[2020-11-12] MEDS: FERROUS SULFATE 325MG TAB PO SCH ×2 (05:33→17:33)
[2020-11-12] MEDS: metroNIDAZOLE (FLAGYL) 500MG TABLET PO SCH ×3 (05:33→20:40)
[2020-11-12 06:00] VITALS: BP 128/74
[2020-11-12 07:00] LABS: BASO # 0.1 10^3/uL (0.0-0.2); BASO % 0.8 % (0.0-1.0); EOS # 0.5 10^3/uL (0.0-0.5); EOS % 6.8 % (0.0-3.0); HEMATOCRIT 33.6 % (42.0-52.0); HEMOGLOBIN 10.1 g/dl (13.5-17.5); LYMPH # 1.7 10^3/uL (1.5-5.0); LYMPH % 22.8 % (24.0-44.0); MEAN CORPUSCULAR HEMOGLOBIN 26.6 pg (27.0-33.0); MEAN CORPUSCULAR HGB CONC 30.1 g/dl (32.0-36.5); MEAN CORPUSCULAR VOLUME 88.7 fl (80.0-96.0); MONO # 0.5 10^3/uL (0.0-0.8); MONO % 7.4 % (2.0-8.0); NEUTROPHILS # 4.5 10^3/uL (1.5-8.5); NEUTROPHILS % 61.5 % (36.0-66.0); PLATELET COUNT, AUTOMATED 171 10^3/uL (150-450); RED BLOOD COUNT 3.79 10^6/uL (4.30-6.10); WHITE BLOOD COUNT 7.3 10^3/uL (4.0-10.0)
[2020-11-12 07:25] LABS: BLOOD UREA NITROGEN 10 MG/DL (7-18); CARBON DIOXIDE LEVEL 32 MEQ/L (21-32); CHLORIDE LEVEL 103 MEQ/L (98-107); CREATININE FOR GFR 1.01 MG/DL (0.70-1.30); GLOMERULAR FILTRATION RATE > 60.0 (>60); GLUCOSE, FASTING 124 MG/DL (70-100); SODIUM LEVEL 140 MEQ/L (136-145)
[2020-11-12] MEDS: HumaLOG INSULIN (NovoLOG) PER UNIT SC SCH ×4 (08:57→20:28)
[2020-11-12] MEDS: DOXYCYCLINE HYCLATE 100MG TABLET PO SCH ×2 (08:58→20:40)
[2020-11-12] MEDS: LACTOBACILLUS ACIDOPHILUS CAP (BACID) PO SCH ×2 (08:58→17:33)
[2020-11-12] MEDS: PANTOPRAZOLE 40MG TAB (PROTONIX) PO SCH (08:58)
[2020-11-12] MEDS: LEVEMIR (INSULIN DETEMIR) 1 UNITS/0.01ML SC SCH (08:58)
[2020-11-12] MEDS: CYANOCOBALAMIN 500 MCG TAB PO SCH (08:58)
[2020-11-12] MEDS: FUROSEMIDE 20 MG TAB PO SCH (08:59)
[2020-11-12] MEDS: NYSTATIN 100,000 UNITS/GM TOPICAL PWD 15 GM TOP SCH ×2 (08:59→20:49)
[2020-11-12] MEDS: VANICREAM MOISTURIZING SKIN CREAM 113GM TUBE TOP SCH ×2 (09:00→20:50)
[2020-11-12] MEDS: LACTIC ACID 12% LOTION 225 GM BTL TOP SCH (09:00)
[2020-11-12 14:00] VITALS: BP 130/82
--- NOTE | 2020-11-12 16:22 | IPNPDOC ---
Subjective General Date Seen: Nov 12, 2020 Subject Chief Complaint/History The patient is a 50-year-old male admitted with a reason for visit of Juancarlos ,Panniculitis. Patient seen and examined at the bedside. Right groin open wound sierra well. No odor. No pain. Current Medications Current Medications Current Medications Medications (Trade) Dose Ordered Sig/Alexandr Route PRN Reason Start Time Stop Time Status Last Admin Dose Admin Acetaminophen (Tylenol Tab) 650 mg Q4H PRN PO FEVER 10/23/20 03:45 11/09/20 21:02 Acetaminophen/ Hydrocodone Bitart (Anexsia, Leonard 7.5mg/325mg) 1 tab Q6H PO 10/23/20 12:00 10/25/20 11:24 DC 10/24/20 23:44 Al Hydrox/Mg Hydrox/Simethicone (Mylanta) 30 ml DAILY PRN PO DYSPEPSIA 10/23/20 03:45 Albuterol Sulfate (Proventil, Ventolin Hfa) 2 puff Q4H PRN INH SHORTNESS OF BREATH 10/23/20 06:45 Apixaban (Eliquis) 5 mg BID PO 10/23/20 09:00 10/23/20 11:27 DC Ceftaroline Fosamil 600 mg/ Dextrose 50 ml @ 50 mls/hr Q12H IV 10/23/20 17:00 10/23/20 09:17 DC Ceftriaxone Sodium 2 gm/ Dextrose 50 ml @ 100 mls/hr Q24H IV 10/23/20 11:00 10/23/20 11:27 DC 10/23/20 11:10 Clindamycin Phosphate 600 mg/ IV Miscellaneous Supplies 50 ml @ 100 mls/hr Q6H IV 10/23/20 15:00 10/25/20 14:27 DC 10/25/20 08:55 Cyanocobalamin (Vitamin B12) 1,000 mcg DAILY PO 10/25/20 09:00 11/12/20 08:58 Dextrose (Dextrose 50%) 25 ml ASDIRECTED PRN IV SEE LABEL COMMENTS 10/23/20 09:30 10/31/20 11:34 DC Dextrose (Dextrose 50%) 25 ml ASDIRECTED PRN IV SEE LABEL COMMENTS 10/31/20 19:15 Docusate Sodium (Colace) 100 mg BID PO 10/24/20 21:00 11/01/20 16:49 DC 10/31/20 10:12 Doxycycline Hyclate (Vibramycin) 100 mg BID PO 11/07/20 09:00 11/12/20 08:58 Emollient Cream (Vanicream) 1 dose BID TOP 10/23/20 21:00 11/12/20 09:00 Fentanyl Citrate (Sublimaze) 25 mcg Q5MP PRN IV PAIN LEVEL 5-10 10/24/20 00:15 10/24/20 01:14 DC Fentanyl Citrate (Sublimaze) 25 mcg Q5MP PRN IV PAIN LEVEL 5-10 10/25/20 11:00 10/25/20 12:00 DC Ferrous Sulfate (Ferrous Sulfate) 325 mg BID PO 10/24/20 21:00 11/07/20 12:32 DC 11/07/20 09:22 Ferrous Sulfate (Ferrous Sulfate) 325 mg BID@0600,1800 PO 11/07/20 18:00 11/12/20 05:33 Furosemide (Lasix) 20 mg DAILY PO 10/23/20 09:00 10/23/20 11:06 DC Furosemide (Lasix) 20 mg DAILY PO 11/07/20 09:00 11/12/20 08:59 Glucagon (Glucagon) 1 mg ASDIRECTED PRN SC SEE LABEL COMMENTS 10/23/20 09:30 10/31/20 11:34 DC Glucagon (Glucagon) 1 mg ASDIRECTED PRN SC SEE LABEL COMMENTS 10/31/20 19:15 Glucose (Glucose) 16 GM ASDIRECTED PRN PO SEE LABEL COMMENTS 10/23/20 09:30 10/31/20 11:34 DC Glucose (Glucose) 16 GM ASDIRECTED PRN PO SEE LABEL COMMENTS 10/31/20 19:15 Heparin Sodium (Porcine) (Heparin) 5,000 units Q8H SQ 10/23/20 14:00 10/23/20 15:06 DC Home Med (Med Rec Complete!) ASDIRECTED XX 10/23/20 04:00 10/23/20 03:53 DC Ibuprofen (Advil) 800 mg TID PO 10/25/20 09:00 11/01/20 08:29 DC 10/31/20 16:53 Ibuprofen (Advil) 800 mg TID PO 10/25/20 16:00 10/25/20 11:29 DC Imipenem/ Cilastatin Sodium 1000 mg/Dextrose 100 ml @ 100 mls/hr Q6H IV 10/23/20 11:25 10/23/20 11:40 DC Imipenem/ Cilastatin Sodium 1000 mg/Sodium Chloride 250 ml @ 250 mls/hr Q6H IV 10/23/20 14:00 10/25/20 14:27 DC 10/25/20 01:13 Insulin Detemir (Levemir Insulin) 10 units QAM SC 10/24/20 09:00 10/24/20 15:49 DC 10/24/20 08:21 Insulin Detemir (Levemir Insulin) 16 units QAM SC 10/25/20 09:00 10/26/20 16:40 DC 10/25/20 12:06 Insulin Detemir (Levemir Insulin) 20 units QAM SC 10/27/20 09:00 11/12/20 08:58 Insulin Human Lispro (HumaLOG INSULIN) SEE PROTOCOL TABLE AC MO 10/23/20 12:00 10/23/20 14:57 DC Insulin Human Lispro (HumaLOG INSULIN) SEE PROTOCOL TABLE AC MO 10/24/20 12:00 10/26/20 06:09 DC 10/25/20 17:26 Insulin Human Lispro (HumaLOG INSULIN) SEE PROTOCOL TABLE AC MO 11/05/20 07:30 11/12/20 12:53 Insulin Human Lispro (HumaLOG INSULIN) SEE PROTOCOL TABLE ACHS MO 11/03/20 22:00 11/04/20 22:22 DC Insulin Human Lispro (HumaLOG INSULIN) SEE PROTOCOL TABLE Q6H MO 10/23/20 18:00 10/24/20 10:52 DC 10/24/20 05:51 Insulin Human Lispro (HumaLOG INSULIN) SEE PROTOCOL TABLE Q6H MO 10/26/20 06:00 10/31/20 11:34 DC 10/27/20 11:53 Insulin Human Lispro (HumaLOG INSULIN) SEE PROTOCOL TABLE Q6H MO 11/01/20 06:00 11/03/20 22:02 DC 11/03/20 17:18 Insulin Human Lispro (HumaLOG INSULIN) SEE PROTOCOL TABLE Q6H MO 11/01/20 09:00 11/01/20 09:27 DC Insulin Human Lispro (HumaLOG INSULIN) SEE PROTOCOL TABLE QHS MO 10/23/20 21:00 10/23/20 14:57 DC Insulin Human Lispro (HumaLOG [facility]ULIN) [facility] 21:00 10/26/20 06:10 DC Insulin Human Lispro (HumaLOG INSULIN) [facility] 21:00 Ketorolac Tromethamine (ToRADol) 15 mg Q6H PRN IV moderate PAIN OR FEVER 10/23/20 12:20 10/23/20 23:58 DC Lactated Ringer's 1,000 ml @ 70 mls/hr [id number] IV 10/23/20 03:45 10/23/20 09:17 DC Lactated Ringer's 1,000 ml @ 100 mls/hr Q10H IV 10/24/20 00:15 10/24/20 01:14 DC Lactated Ringer's 1,000 ml @ 100 mls/hr Q10H IV 10/25/20 11:00 10/25/20 12:00 DC Lactated Ringer's 1,000 ml @ 175 mls/hr Q5H43M IV 10/24/20 00:05 11/05/20 09:06 DC 11/05/20 06:41 Lactic Acid (Lac-Hydrin 12% Lotion) apply to feet and callu... DAILY TOP 10/31/20 09:00 11/12/20 09:00 Lactobacillus Acidophilus (Bacid) 1 ea BIDWM PO 10/23/20 18:00 11/12/20 08:58 Loperamide HCl (Imodium) 2 mg ASDIRECTED PRN PO DIARRHEA 11/03/20 11:20 11/04/20 00:15 Magnesium Hydroxide (Milk Of Magnesia) 30 ml DAILY PRN PO CONSTIPATION 10/23/20 03:45 11/01/20 16:49 DC 10/25/20 22:28 Metoclopramide HCl (REGLAN INJection) 10 mg Q6H IV 10/30/20 11:00 11/06/20 07:49 DC 11/04/20 03:57 Metoclopramide HCl (REGLAN INJection) 10 mg Q6HP PRN IV NAUSEA OR VOMITING 10/24/20 00:15 10/24/20 01:14 DC Metoclopramide HCl (REGLAN INJection) 10 mg Q6HP PRN IV NAUSEA OR VOMITING 10/25/20 11:00 10/25/20 12:00 DC Metoclopramide HCl (REGLAN INJection) 10 mg Q6HP PRN IV NAUSEA OR VOMITING 11/06/20 07:50 11/07/20 16:05 DC Metoclopramide HCl (REGLAN INJection) 10 mg TID IV 10/24/20 16:00 10/27/20 14:07 DC 10/25/20 22:28 Metoclopramide HCl (REGLAN INJection) 10 mg TIDP PRN IV NAUSEA OR VOMITING 10/27/20 14:05 10/30/20 10:19 DC Metronidazole (Flagyl) 500 mg Q8H PO 11/07/20 14:00 11/12/20 13:36 Morphine Sulfate (Morphine Sulfate Inj) 1 mg Q4H PRN IV MODERATE PAIN (PS 5-7) 10/23/20 11:25 10/23/20 23:58 DC Morphine Sulfate (Morphine Sulfate Inj) 4 mg Q3HP PRN IV SEVERE PAIN (PS 8-10) 10/24/20 00:05 10/25/20 11:24 DC Nicotine (Nicoderm Cq 21mg) 1 patch QHS TD 10/23/20 21:00 10/27/20 21:15 Nystatin (Mycostatin Powder, Nystop) Apply to abominal and gr... BID TOP 11/01/20 21:00 11/12/20 08:59 Ondansetron HCl (ZOFRAN INJection) 4 mg Q4HP PRN IV NAUSEA OR VOMITING 10/24/20 00:15 10/24/20 01:14 DC Ondansetron HCl (ZOFRAN INJection) 4 mg Q4HP PRN IV NAUSEA OR VOMITING 10/25/20 11:00 10/25/20 12:00 DC Ondansetron HCl (ZOFRAN INJection) 4 mg Q4HP PRN IV NAUSEA OR VOMITING 10/31/20 18:55 11/07/20 16:05 DC 11/01/20 01:06 Ondansetron HCl (Zofran Odt) 4 mg Q6H SL 10/25/20 06:00 10/31/20 18:56 DC 10/31/20 16:53 Ondansetron HCl (Zofran) 4 mg Q6HP PRN PO NAUSEA OR VOMITING 10/24/20 15:50 10/31/20 18:56 DC 10/25/20 15:01 Oxycodone/ Acetaminophen (Percocet 5mg/ 325mg Tablet) 1 tab ASDIRECTED PRN PO PAIN LEVEL 1-4 10/24/20 00:15 10/24/20 01:14 DC Oxycodone/ Acetaminophen (Percocet 5mg/ 325mg Tablet) 1 tab ASDIRECTED PRN PO PAIN LEVEL 1-4 10/25/20 11:00 10/25/20 12:00 DC Oxycodone/ Acetaminophen (Percocet 5mg/ 325mg Tablet) 1 tab Q4HP PRN PO MODERATE PAIN (PS 5-7) 10/24/20 00:05 10/29/20 09:57 Oxycodone/ Acetaminophen (Percocet 5mg/ 325mg Tablet) 2 tab Q4HP PRN PO SEVERE PAIN (PS 8-10) 10/24/20 00:05 10/30/20 07:54 Pantoprazole Sodium (Protonix) 40 mg DAILY IV 10/24/20 09:00 11/06/20 07:49 DC 11/05/20 10:16 Pantoprazole Sodium (Protonix) 40 mg DAILY PO 11/06/20 09:00 11/12/20 08:58 Pantoprazole Sodium (Protonix) 40 mg QHS PO 10/23/20 21:00 10/23/20 14:57 DC Phenol (Chloraseptic [place]) 1 spray Q2HP PRN MT SORE THROAT 10/26/20 06:05 Piperacillin Sod/ Tazobactam Sod 4.5 gm/Dextrose 50 ml @ 50 mls/hr Q6H IV 10/25/20 15:00 11/07/20 12:24 DC 11/07/20 04:13 Sodium Chloride 1,000 ml @ 200 mls/hr Q5H IV 10/23/20 09:15 10/24/20 00:08 DC 10/23/20 11:07 Sodium Chloride (Nacl 0.9%) 1,000 ml BOLUS IV 10/23/20 03:45 10/23/20 03:46 DC 10/23/20 07:39 Vancomycin HCl 500 mg/Dextrose 110 ml @ 110 mls/hr Q8H IV 10/23/20 13:00 10/24/20 13:43 DC 10/24/20 06:45 Vancomycin HCl 500 mg/Dextrose 110 ml @ 110 mls/hr Q8H IV 10/24/20 21:00 10/25/20 09:57 DC 10/25/20 04:24 Vancomycin HCl 500 mg/Dextrose 110 ml @ 110 mls/hr Q8H IV 10/25/20 14:00 10/25/20 14:27 DC 10/25/20 14:16 Vancomycin HCl 750 mg/IV Miscellaneous Supplies 1 each/ Dextrose 275 ml @ 275 mls/hr Q8H IV 10/23/20 12:00 10/24/20 18:37 DC 10/24/20 12:18 Vancomycin HCl 750 mg/IV Miscellaneous Supplies 1 each/ Dextrose 275 ml @ 275 mls/hr Q8H IV 10/24/20 13:00 10/24/20 18:37 DC 10/24/20 14:32 Vancomycin HCl 750 mg/IV Miscellaneous Supplies 1 each/ Sodium Chloride 275 ml @ 275 mls/hr Q8H IV 10/25/20 12:00 10/25/20 12:41 DC Vancomycin HCl 750 mg/IV Miscellaneous Supplies 1 each/ Sodium Chloride 275 ml @ 275 mls/hr Q8H IV 10/25/20 13:00 10/25/20 12:41 DC Vancomycin HCl 750 mg/IV Miscellaneous Supplies 1 each/ Sodium Chloride 275 ml @ 275 mls/hr Q8H IV 10/25/20 13:00 10/25/20 14:27 DC 10/25/20 13:23 Vancomycin HCl 1000 mg/IV Miscellaneous Supplies 1 each/ Dextrose 270 ml @ 270 mls/hr Q12H IV 10/23/20 07:00 10/23/20 11:01 DC Vancomycin HCl 1000 mg/IV Miscellaneous Supplies 1 each/ Dextrose 270 ml @ 270 mls/hr Q8H IV 10/24/20 20:00 10/25/20 09:57 DC 10/25/20 03:07 Allergies Coded Allergies: carisoprodol (Verified Allergy, Intermediate, rash, 01/23/20) Objective Physical Examination Examination GENERAL APPEARANCE:Patient seen, laying in bed, awake, alert, and oriented. Comfortable, in no acute distress. SKIN: Warm and moist. Right groin open wound full thickness. Clean granulating tissue. No odor. Clear drainage moderate. Shrinking. LUNGS: Clear to auscultation bilaterally. No wheezing appreciated. HEART: No chest wall abnormalities. Regular rate and rhythm with no murmurs appreciated. ABDOMEN: Abdomen is soft, non-tender, non-distended. EXTREMITIES: No edema identified. No calf tenderness. Vital Signs Vital Signs Date Time Temp Pulse Resp B/P (MAP) Pulse Ox O2 Delivery O2 Flow Rate FiO2 11/12/20 14:00 98.1 87 19 130/82 (98) 100 Room Air 11/11/20 22:00 10.0 50 I&Os I&O- Last 24 Hours up to 6 AM 11/12/20 06:00 Intake Total 540 ml Output Total 1875 ml Balance -1335 ml Laboratory Data Labs 24H Laboratory Tests 2 11/11/20 17:02: Bedside Glucose (Misc Panel) 99 11/11/20 20:06: Bedside Glucose (Misc Panel) 131H 11/12/20 06:12: Bedside Glucose (Misc Panel) 110H 11/12/20 06:37: Immature Granulocyte % (Auto) 0.7, Neutrophils (%) (Auto) 61.5, Lymphocytes (%) (Auto) 22.8L, Monocytes (%) (Auto) 7.4, Eosinophils (%) (Auto) 6.8H, Basophils (%) (Auto) 0.8, Neutrophils # (Auto) 4.5, Lymphocytes # (Auto) 1.7, Monocytes # (Auto) 0.5, Eosinophils # (Auto) 0.5, Basophils # (Auto) 0.1, Nucleated Red Blood Cells % (auto) 0.0, Anion Gap 5L, Glomerular Filtration Rate > 60.0, Calcium Level 8.0L 11/12/20 11:14: Bedside Glucose (Misc Panel) 117H CBC/BMP Laboratory Tests 11/12/20 06:37 Impression Right groin open wound. Continue with wound vac therapy at 125 mm Hg. Change every [address] on today. Will reassess next week. Improving. Plan / VTE VTE Prophylaxis Ordered?: Yes SUZE DAMICO DO Nov 12, 2020 16:22
[2020-11-12] MEDS: NICOTINE 21MG/24HR 1 EA TRANSDERMAL TD SCH (20:29)
[2020-11-12 22:00] VITALS: BP 116/81
[2020-11-13] MEDS: metroNIDAZOLE (FLAGYL) 500MG TABLET PO SCH ×3 (05:56→20:36)
[2020-11-13] MEDS: FERROUS SULFATE 325MG TAB PO SCH ×2 (05:56→17:15)
[2020-11-13 06:00] VITALS: BP 148/86
[2020-11-13 07:17] LABS: BASO # 0.1 10^3/uL (0.0-0.2); BASO % 0.8 % (0.0-1.0); EOS # 0.5 10^3/uL (0.0-0.5); EOS % 6.1 % (0.0-3.0); HEMOGLOBIN 10.5 g/dl (13.5-17.5); LYMPH # 1.7 10^3/uL (1.5-5.0); LYMPH % 20.9 % (24.0-44.0); MEAN CORPUSCULAR HEMOGLOBIN 27.4 pg (27.0-33.0); MEAN CORPUSCULAR HGB CONC 30.9 g/dl (32.0-36.5); MEAN CORPUSCULAR VOLUME 88.8 fl (80.0-96.0); MONO # 0.5 10^3/uL (0.0-0.8); MONO % 6.1 % (2.0-8.0); NEUTROPHILS # 5.2 10^3/uL (1.5-8.5); NEUTROPHILS % 65.3 % (36.0-66.0); PLATELET COUNT, AUTOMATED 176 10^3/uL (150-450); RED BLOOD COUNT 3.83 10^6/uL (4.30-6.10); WHITE BLOOD COUNT 7.9 10^3/uL (4.0-10.0)
[2020-11-13 07:43] LABS: BLOOD UREA NITROGEN 10 MG/DL (7-18); CALCIUM LEVEL 8.5 MG/DL (8.5-10.1); CARBON DIOXIDE LEVEL 33 MEQ/L (21-32); CHLORIDE LEVEL 104 MEQ/L (98-107); GLOMERULAR FILTRATION RATE > 60.0 (>60); GLUCOSE, FASTING 123 MG/DL (70-100); SODIUM LEVEL 141 MEQ/L (136-145)
[2020-11-13] MEDS: LACTOBACILLUS ACIDOPHILUS CAP (BACID) PO SCH ×2 (08:14→17:15)
[2020-11-13] MEDS: CYANOCOBALAMIN 500 MCG TAB PO SCH (08:14)
[2020-11-13] MEDS: FUROSEMIDE 20 MG TAB PO SCH (08:14)
[2020-11-13] MEDS: PANTOPRAZOLE 40MG TAB (PROTONIX) PO SCH (08:15)
[2020-11-13] MEDS: DOXYCYCLINE HYCLATE 100MG TABLET PO SCH ×2 (08:15→20:36)
[2020-11-13] MEDS: HumaLOG INSULIN (NovoLOG) PER UNIT SC SCH ×4 (08:17→20:35)
[2020-11-13] MEDS: LEVEMIR (INSULIN DETEMIR) 1 UNITS/0.01ML SC SCH (08:17)
[2020-11-13] MEDS: LACTIC ACID 12% LOTION 225 GM BTL TOP SCH (08:18)
[2020-11-13] MEDS: VANICREAM MOISTURIZING SKIN CREAM 113GM TUBE TOP SCH ×2 (08:18→20:37)
[2020-11-13] MEDS: NYSTATIN 100,000 UNITS/GM TOPICAL PWD 15 GM TOP SCH ×2 (08:18→20:36)
[2020-11-13 14:00] VITALS: BP 129/83
[2020-11-13] MEDS: NICOTINE 21MG/24HR 1 EA TRANSDERMAL TD SCH (20:38)
[2020-11-13 22:00] VITALS: BP 134/83
[2020-11-14 06:00] VITALS: BP 140/80
[2020-11-14] MEDS: metroNIDAZOLE (FLAGYL) 500MG TABLET PO SCH ×3 (06:29→21:55)
[2020-11-14] MEDS: FERROUS SULFATE 325MG TAB PO SCH ×2 (06:29→18:14)
[2020-11-14 06:52] LABS: BASO # 0.1 10^3/uL (0.0-0.2); BASO % 1.1 % (0.0-1.0); EOS # 0.5 10^3/uL (0.0-0.5); EOS % 7.4 % (0.0-3.0); HEMATOCRIT 35.1 % (42.0-52.0); HEMOGLOBIN 10.7 g/dl (13.5-17.5); LYMPH # 1.5 10^3/uL (1.5-5.0); LYMPH % 25.1 % (24.0-44.0); MEAN CORPUSCULAR HGB CONC 30.5 g/dl (32.0-36.5); MEAN CORPUSCULAR VOLUME 88.6 fl (80.0-96.0); MONO # 0.5 10^3/uL (0.0-0.8); MONO % 7.7 % (2.0-8.0); NEUTROPHILS # 3.6 10^3/uL (1.5-8.5); NEUTROPHILS % 58.2 % (36.0-66.0); PLATELET COUNT, AUTOMATED 176 10^3/uL (150-450); RED BLOOD COUNT 3.96 10^6/uL (4.30-6.10); WHITE BLOOD COUNT 6.1 10^3/uL (4.0-10.0)
[2020-11-14 07:21] LABS: BLOOD UREA NITROGEN 10 MG/DL (7-18); CALCIUM LEVEL 8.5 MG/DL (8.5-10.1); CARBON DIOXIDE LEVEL 30 MEQ/L (21-32); CHLORIDE LEVEL 104 MEQ/L (98-107); CREATININE FOR GFR 1.05 MG/DL (0.70-1.30); GLOMERULAR FILTRATION RATE > 60.0 (>60); GLUCOSE, FASTING 121 MG/DL (70-100); SODIUM LEVEL 140 MEQ/L (136-145)
[2020-11-14] MEDS: HumaLOG INSULIN (NovoLOG) PER UNIT SC SCH ×4 (07:30→21:00)
[2020-11-14] MEDS: CYANOCOBALAMIN 500 MCG TAB PO SCH (10:07)
[2020-11-14] MEDS: FUROSEMIDE 20 MG TAB PO SCH (10:07)
[2020-11-14] MEDS: LACTOBACILLUS ACIDOPHILUS CAP (BACID) PO SCH ×2 (10:07→18:15)
[2020-11-14] MEDS: PANTOPRAZOLE 40MG TAB (PROTONIX) PO SCH (10:07)
[2020-11-14] MEDS: DOXYCYCLINE HYCLATE 100MG TABLET PO SCH ×2 (10:08→21:55)
[2020-11-14] MEDS: LEVEMIR (INSULIN DETEMIR) 1 UNITS/0.01ML SC SCH (10:09)
[2020-11-14] MEDS: LACTIC ACID 12% LOTION 225 GM BTL TOP SCH (10:09)
[2020-11-14] MEDS: VANICREAM MOISTURIZING SKIN CREAM 113GM TUBE TOP SCH ×2 (10:10→21:55)
[2020-11-14] MEDS: NYSTATIN 100,000 UNITS/GM TOPICAL PWD 15 GM TOP SCH ×2 (10:11→21:55)
--- NOTE | 2020-11-14 13:26 | IPNPDOC ---
Date Seen The patient was seen on 11/14/20. Progress Note SUBJECTIVE: patient was seen and examined at bedside. Doing well. No aute events overnight. Had a wound vac placed by Dr. Lares on 11.12.20. Vitals stable overnight. Afebrile. Saturating 94% on RA. He is alert and oriented. OBJECTIVE PHYSICAL EXAMINATION: VITAL SIGNS: please see below General: NAD, comfortable HEENT: PERRLA, EOMI, sclerae clear Neck: supple, normal ROM, no JVD Respiratory: lungs CTAB, no wheeze, no rales, no crackles CVS: RRR, normal S1, S2, no murmurs Abdo: large panusm, enlarged scrotum. Wound vac in place. MSK: no joint deformities, normal ROM Neuro: no focal neuro deficits, moving all 4 extremities, CN2-12 intact. Strength 5/5 in all 4 extremities. No nystagmus. Psych: calm, cooperative, AAO x 3 LABORATORY DATA, IMAGING STUDIES, MICROBIOLOGY: Please see below. DVT prophylaxis ordered?: ASSESSMENT AND PLAN: 50 yr old w a hx of left UE DVT, ARJUN/ CPAP, Morbid Obesity and GERD, DM, who presented on 10/23/20 w c/o severe groin pain for several weeks and admitted for sepsis 2/2 Toby's gas gangrene involving right scrotum, inguinal region extending towards the perineum/buttock and upwards toward the flank with a subcutaneous abscess. . 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 - Abscess grew several anaerobic organisms and staph hominis in the aerobic bottle - received 2 weeks of Zosyn - surgery following - Dr. Deluna replaced wound vac on 11/12/20 - working with PFS for placement vs home with adequate services. Shortness of breath - improved - multifactorial due to ARJUN, obesity hypoventilation syndrome, HFpEF drops O2 when sleeping. - Not using the CPAP here, reports the mask straps does not fit and gets tangled in his hair. - c/w lasix 20 mg daily Diastolic CHF - stable - Echo with EF of 65%, grade 2 diastolic dysfunction.No wall motion abnormality. Poor visualization due to body habitus. - lasix 20 mg daily Anemia likely multifactorial for iron deficiency and Vitamin B12 - c/w iron and b12 supplementation DM type II likely uncontrolled 2/2 to infection, surgery HbA1c 8.3, BS better controlled C/w AM levemir, ISS, FS AC/HS consistent carb diet ARJUN - not using the hospital CPAP. Cannot bring his home CPAP. Class 3 obesity - BMI 75.5 complicates care - Patient was to be referred to bariatric surgery last year - delayed due to covid GERD PPI Hx of UE DVT, DVT px - resumed eliquis on 11/14/20 Resolved issues: Sepsis due to Toby's gangrene Small bowel ileus post-operatively and possible gastroparesis: VINEET Hypophosphatemia Hypotension likely 2/2 to sepsis , dehydration and (post-op) anesthesia VS, I&O, 24H, Fishbone Vital Signs/I&O Vital Signs Date Time Temp Pulse Resp B/P (MAP) Pulse Ox O2 Delivery O2 Flow Rate FiO2 11/14/20 06:00 97.8 89 20 140/80 (100) 94 Room Air 11/11/20 22:00 10.0 50 I&O- Last 24 Hours up to 6 AM 11/14/20 06:00 Intake Total 1350 ml Output Total 3000 ml Balance -1650 ml Laboratory Data 24H LABS Laboratory Tests 2 11/13/20 16:21: Bedside Glucose (Misc Panel) 99 11/13/20 20:12: Bedside Glucose (Misc Panel) 122H 11/14/20 06:34: Immature Granulocyte % (Auto) 0.5, Neutrophils (%) (Auto) 58.2, Lymphocytes (%) (Auto) 25.1, Monocytes (%) (Auto) 7.7, Eosinophils (%) (Auto) 7.4H, Basophils (%) (Auto) 1.1H, Neutrophils # (Auto) 3.6, Lymphocytes # (Auto) 1.5, Monocytes # (Auto) 0.5, Eosinophils # (Auto) 0.5, Basophils # (Auto) 0.1, Nucleated Red Blood Cells % (auto) 0.0, Anion Gap 6L, Glomerular Filtration Rate > 60.0, Calcium Level 8.5 11/14/20 11:43: Bedside Glucose (Misc Panel) 100 CBC/BMP Laboratory Tests 11/14/20 06:34 DAGOBERTO HENDRICKSON MD Nov 14, 2020 13:26
[2020-11-14] MEDS: NICOTINE 21MG/24HR 1 EA TRANSDERMAL TD SCH (21:00)
[2020-11-14] MEDS: APIXABAN 5 MG TAB (ELIQUIS) PO SCH (21:55)
[2020-11-15] MEDS: FERROUS SULFATE 325MG TAB PO SCH ×2 (05:39→17:35)
[2020-11-15] MEDS: metroNIDAZOLE (FLAGYL) 500MG TABLET PO SCH ×3 (05:39→21:09)
[2020-11-15 07:03] VITALS: BP 143/86
[2020-11-15] MEDS: HumaLOG INSULIN (NovoLOG) PER UNIT SC SCH ×4 (07:30→21:00)
[2020-11-15] MEDS: LACTOBACILLUS ACIDOPHILUS CAP (BACID) PO SCH ×2 (08:00→17:35)
[2020-11-15] MEDS: APIXABAN 5 MG TAB (ELIQUIS) PO SCH ×2 (09:15→21:09)
[2020-11-15] MEDS: FUROSEMIDE 20 MG TAB PO SCH (09:16)
[2020-11-15] MEDS: DOXYCYCLINE HYCLATE 100MG TABLET PO SCH ×2 (09:16→21:09)
[2020-11-15] MEDS: CYANOCOBALAMIN 500 MCG TAB PO SCH (09:16)
[2020-11-15] MEDS: PANTOPRAZOLE 40MG TAB (PROTONIX) PO SCH (09:16)
[2020-11-15] MEDS: LEVEMIR (INSULIN DETEMIR) 1 UNITS/0.01ML SC SCH (09:17)
[2020-11-15] MEDS: LACTIC ACID 12% LOTION 225 GM BTL TOP SCH (09:18)
[2020-11-15] MEDS: NYSTATIN 100,000 UNITS/GM TOPICAL PWD 15 GM TOP SCH ×2 (09:18→21:11)
[2020-11-15] MEDS: VANICREAM MOISTURIZING SKIN CREAM 113GM TUBE TOP SCH ×2 (09:18→21:11)
[2020-11-15] MEDS: NICOTINE 21MG/24HR 1 EA TRANSDERMAL TD SCH (21:00)
[2020-11-16] MEDS: metroNIDAZOLE (FLAGYL) 500MG TABLET PO SCH ×3 (05:20→21:52)
[2020-11-16] MEDS: FERROUS SULFATE 325MG TAB PO SCH ×2 (05:20→17:27)
[2020-11-16 06:00] VITALS: BP 146/88
[2020-11-16] MEDS: HumaLOG INSULIN (NovoLOG) PER UNIT SC SCH ×4 (08:57→21:00)
[2020-11-16] MEDS: FUROSEMIDE 20 MG TAB PO SCH (08:57)
[2020-11-16] MEDS: LEVEMIR (INSULIN DETEMIR) 1 UNITS/0.01ML SC SCH (08:57)
[2020-11-16] MEDS: APIXABAN 5 MG TAB (ELIQUIS) PO SCH ×2 (08:57→21:52)
[2020-11-16] MEDS: CYANOCOBALAMIN 500 MCG TAB PO SCH (08:58)
[2020-11-16] MEDS: LACTOBACILLUS ACIDOPHILUS CAP (BACID) PO SCH ×2 (08:58→17:27)
[2020-11-16] MEDS: PANTOPRAZOLE 40MG TAB (PROTONIX) PO SCH (08:58)
[2020-11-16] MEDS: DOXYCYCLINE HYCLATE 100MG TABLET PO SCH ×2 (08:58→21:52)
[2020-11-16] MEDS: NYSTATIN 100,000 UNITS/GM TOPICAL PWD 15 GM TOP SCH ×2 (08:59→21:53)
[2020-11-16] MEDS: LACTIC ACID 12% LOTION 225 GM BTL TOP SCH (08:59)
[2020-11-16] MEDS: VANICREAM MOISTURIZING SKIN CREAM 113GM TUBE TOP SCH ×2 (08:59→21:54)
[2020-11-16] MEDS: PERCOCET 5MG/325MG TAB PO PRN (18:42)
[2020-11-16] MEDS: NICOTINE 21MG/24HR 1 EA TRANSDERMAL TD SCH (21:00)
[2020-11-17] MEDS: FERROUS SULFATE 325MG TAB PO SCH ×2 (05:59→17:21)
[2020-11-17] MEDS: metroNIDAZOLE (FLAGYL) 500MG TABLET PO SCH ×3 (05:59→21:52)
[2020-11-17 06:00] VITALS: BP 124/71
[2020-11-17] MEDS: HumaLOG INSULIN (NovoLOG) PER UNIT SC SCH ×4 (08:45→19:50)
[2020-11-17] MEDS: LEVEMIR (INSULIN DETEMIR) 1 UNITS/0.01ML SC SCH (08:45)
[2020-11-17] MEDS: CYANOCOBALAMIN 500 MCG TAB PO SCH (08:46)
[2020-11-17] MEDS: DOXYCYCLINE HYCLATE 100MG TABLET PO SCH ×2 (08:46→19:54)
[2020-11-17] MEDS: APIXABAN 5 MG TAB (ELIQUIS) PO SCH ×2 (08:46→19:54)
[2020-11-17] MEDS: LACTOBACILLUS ACIDOPHILUS CAP (BACID) PO SCH ×2 (08:46→17:21)
[2020-11-17] MEDS: PANTOPRAZOLE 40MG TAB (PROTONIX) PO SCH (08:47)
[2020-11-17] MEDS: FUROSEMIDE 20 MG TAB PO SCH (08:47)
[2020-11-17] MEDS: LACTIC ACID 12% LOTION 225 GM BTL TOP SCH (09:00)
[2020-11-17] MEDS: VANICREAM MOISTURIZING SKIN CREAM 113GM TUBE TOP SCH ×2 (09:01→20:08)
[2020-11-17] MEDS: NYSTATIN 100,000 UNITS/GM TOPICAL PWD 15 GM TOP SCH ×2 (09:02→20:07)
[2020-11-17] MEDS: NICOTINE 21MG/24HR 1 EA TRANSDERMAL TD SCH (19:55)
[2020-11-18] MEDS: FERROUS SULFATE 325MG TAB PO SCH ×2 (05:25→18:05)
[2020-11-18] MEDS: metroNIDAZOLE (FLAGYL) 500MG TABLET PO SCH ×3 (05:25→21:07)
[2020-11-18 06:00] VITALS: BP 126/85
[2020-11-18 06:55] LABS: BASO # 0.1 10^3/uL (0.0-0.2); EOS # 0.3 10^3/uL (0.0-0.5); EOS % 5.1 % (0.0-3.0); HEMATOCRIT 35.9 % (42.0-52.0); HEMOGLOBIN 10.8 g/dl (13.5-17.5); LYMPH # 1.7 10^3/uL (1.5-5.0); MEAN CORPUSCULAR HEMOGLOBIN 26.9 pg (27.0-33.0); MEAN CORPUSCULAR HGB CONC 30.1 g/dl (32.0-36.5); MEAN CORPUSCULAR VOLUME 89.5 fl (80.0-96.0); MONO # 0.6 10^3/uL (0.0-0.8); NEUTROPHILS # 3.6 10^3/uL (1.5-8.5); NEUTROPHILS % 57.1 % (36.0-66.0); PLATELET COUNT, AUTOMATED 244 10^3/uL (150-450); RED BLOOD COUNT 4.01 10^6/uL (4.30-6.10); WHITE BLOOD COUNT 6.2 10^3/uL (4.0-10.0)
[2020-11-18 07:28] LABS: ALBUMIN 2.3 GM/DL (3.2-5.2); ALT/SGPT 15 U/L (12-78); BILIRUBIN,TOTAL 0.3 MG/DL (0.2-1.0); BLOOD UREA NITROGEN 11 MG/DL (7-18); CALCIUM LEVEL 8.1 MG/DL (8.5-10.1); CARBON DIOXIDE LEVEL 30 MEQ/L (21-32); CHLORIDE LEVEL 104 MEQ/L (98-107); CREATININE FOR GFR 1.17 MG/DL (0.70-1.30); GLOMERULAR FILTRATION RATE > 60.0 (>60); GLUCOSE, FASTING 112 MG/DL (70-100); MAGNESIUM LEVEL 1.4 MG/DL (1.8-2.4); POTASSIUM SERUM 3.9 MEQ/L (3.5-5.1); SODIUM LEVEL 139 MEQ/L (136-145); TOTAL PROTEIN 6.2 GM/DL (6.4-8.2)
[2020-11-18] MEDS ORDERED: MAG SULF 1GM/100ML (MAG RUN) 1 GM in IV 1 EA IV SCH (08:00)
[2020-11-18] MEDS: HumaLOG INSULIN (NovoLOG) PER UNIT SC SCH ×4 (08:04→21:00)
[2020-11-18] MEDS: LACTOBACILLUS ACIDOPHILUS CAP (BACID) PO SCH ×2 (08:04→18:04)
[2020-11-18] MEDS: LEVEMIR (INSULIN DETEMIR) 1 UNITS/0.01ML SC SCH (10:03)
[2020-11-18] MEDS: FUROSEMIDE 20 MG TAB PO SCH (10:04)
[2020-11-18] MEDS: DOXYCYCLINE HYCLATE 100MG TABLET PO SCH ×2 (10:04→21:07)
[2020-11-18] MEDS: PANTOPRAZOLE 40MG TAB (PROTONIX) PO SCH (10:04)
[2020-11-18] MEDS: CYANOCOBALAMIN 500 MCG TAB PO SCH (10:05)
[2020-11-18] MEDS: APIXABAN 5 MG TAB (ELIQUIS) PO SCH ×2 (10:05→21:07)
[2020-11-18] MEDS: LACTIC ACID 12% LOTION 225 GM BTL TOP SCH (11:01)
[2020-11-18] MEDS: MAGNESIUM OXIDE 400MG TAB (MAG-OX) PO SCH ×2 (11:01→18:05)
[2020-11-18] MEDS: VANICREAM MOISTURIZING SKIN CREAM 113GM TUBE TOP SCH ×2 (11:02→21:07)
[2020-11-18] MEDS: NYSTATIN 100,000 UNITS/GM TOPICAL PWD 15 GM TOP SCH ×2 (11:02→21:08)
--- NOTE | 2020-11-18 17:55 | IPNPDOC ---
Subjective General Date Seen: Nov 18, 2020 Subject Chief Complaint/History The patient is a 50-year-old male admitted with a reason for visit of Juancarlos,Panniculitis. Patient is feeling well today. He is able to ambulate. Wound vac in place. Current Medications Current Medications Current Medications Medications (Trade) Dose Ordered Sig/Alexandr Route PRN Reason Start Time Stop Time Status Last Admin Dose Admin Acetaminophen (Tylenol Tab) 650 mg Q4H PRN PO FEVER 10/23/20 03:45 11/09/20 21:02 Acetaminophen/ Hydrocodone Bitart (Anexsia, Crane 7.5mg/325mg) 1 tab Q6H PO 10/23/20 12:00 10/25/20 11:24 DC 10/24/20 23:44 Al Hydrox/Mg Hydrox/Simethicone (Mylanta) 30 ml DAILY PRN PO DYSPEPSIA 10/23/20 03:45 Albuterol Sulfate (Proventil, Ventolin Hfa) 2 puff Q4H PRN INH SHORTNESS OF BREATH 10/23/20 06:45 Apixaban (Eliquis) 5 mg BID PO 10/23/20 09:00 10/23/20 11:27 DC Apixaban (Eliquis) 5 mg BID PO 11/14/20 21:00 11/18/20 10:05 Ceftaroline Fosamil 600 mg/ Dextrose 50 ml @ 50 mls/hr Q12H IV 10/23/20 17:00 10/23/20 09:17 DC Ceftriaxone Sodium 2 gm/ Dextrose 50 ml @ 100 mls/hr Q24H IV 10/23/20 11:00 10/23/20 11:27 DC 10/23/20 11:10 Clindamycin Phosphate 600 mg/ IV Miscellaneous Supplies 50 ml @ 100 mls/hr Q6H IV 10/23/20 15:00 10/25/20 14:27 DC 10/25/20 08:55 Cyanocobalamin (Vitamin B12) 1,000 mcg DAILY PO 10/25/20 09:00 11/18/20 10:05 Dextrose (Dextrose 50%) 25 ml ASDIRECTED PRN IV SEE LABEL COMMENTS 10/23/20 09:30 10/31/20 11:34 DC Dextrose (Dextrose 50%) 25 ml ASDIRECTED PRN IV SEE LABEL COMMENTS 10/31/20 19:15 Docusate Sodium (Colace) 100 mg BID PO 10/24/20 21:00 11/01/20 16:49 DC 10/31/20 10:12 Doxycycline Hyclate (Vibramycin) 100 mg BID PO 11/07/20 09:00 11/18/20 10:04 Emollient Cream (Vanicream) 1 dose BID TOP 10/23/20 21:00 11/18/20 11:02 Fentanyl Citrate (Sublimaze) 25 mcg Q5MP PRN IV PAIN LEVEL 5-10 10/24/20 00:15 10/24/20 01:14 DC Fentanyl Citrate (Sublimaze) 25 mcg Q5MP PRN IV PAIN LEVEL 5-10 10/25/20 11:00 10/25/20 12:00 DC Ferrous Sulfate (Ferrous Sulfate) 325 mg BID PO 10/24/20 21:00 11/07/20 12:32 DC 11/07/20 09:22 Ferrous Sulfate (Ferrous Sulfate) 325 mg BID@0600,1800 PO 11/07/20 18:00 11/18/20 05:25 Furosemide (Lasix) 20 mg DAILY PO 10/23/20 09:00 10/23/20 11:06 DC Furosemide (Lasix) 20 mg DAILY PO 11/07/20 09:00 11/18/20 10:04 Glucagon (Glucagon) 1 mg ASDIRECTED PRN SC SEE LABEL COMMENTS 10/23/20 09:30 10/31/20 11:34 DC Glucagon (Glucagon) 1 mg ASDIRECTED PRN SC SEE LABEL COMMENTS 10/31/20 19:15 Glucose (Glucose) 16 GM ASDIRECTED PRN PO SEE LABEL COMMENTS 10/23/20 09:30 10/31/20 11:34 DC Glucose (Glucose) 16 GM ASDIRECTED PRN PO SEE LABEL COMMENTS 10/31/20 19:15 Heparin Sodium (Porcine) (Heparin) 5,000 units Q8H SQ 10/23/20 14:00 10/23/20 15:06 DC Home Med (Med Rec Complete!) ASDIRECTED XX 10/23/20 04:00 10/23/20 03:53 DC Ibuprofen (Advil) 800 mg TID PO 10/25/20 09:00 11/01/20 08:29 DC 10/31/20 16:53 Ibuprofen (Advil) 800 mg TID PO 10/25/20 16:00 10/25/20 11:29 DC Imipenem/ Cilastatin Sodium 1000 mg/Dextrose 100 ml @ 100 mls/hr Q6H IV 10/23/20 11:25 10/23/20 11:40 DC Imipenem/ Cilastatin Sodium 1000 mg/Sodium Chloride 250 ml @ 250 mls/hr Q6H IV 10/23/20 14:00 10/25/20 14:27 DC 10/25/20 01:13 Insulin Detemir (Levemir Insulin) 10 units QAM SC 10/24/20 09:00 10/24/20 15:49 DC 10/24/20 08:21 Insulin Detemir (Levemir Insulin) 16 units QAM SC 10/25/20 09:00 10/26/20 16:40 DC 10/25/20 12:06 Insulin Detemir (Levemir Insulin) 20 units QAM SC 10/27/20 09:00 11/18/20 10:03 Insulin Human Lispro (HumaLOG INSULIN) SEE PROTOCOL TABLE AC MT 10/23/20 12:00 10/23/20 14:57 DC Insulin Human Lispro (HumaLOG INSULIN) SEE PROTOCOL TABLE AC MT 10/24/20 12:00 10/26/20 06:09 DC 10/25/20 17:26 Insulin Human Lispro (HumaLOG INSULIN) SEE PROTOCOL TABLE AC MT 11/05/20 07:30 11/18/20 11:41 Insulin Human Lispro (HumaLOG INSULIN) SEE PROTOCOL TABLE ACHS MT 11/03/20 22:00 11/04/20 22:22 DC Insulin Human Lispro (HumaLOG INSULIN) SEE PROTOCOL TABLE Q6H MT 10/23/20 18:00 10/24/20 10:52 DC 10/24/20 05:51 Insulin Human Lispro (HumaLOG INSULIN) SEE PROTOCOL TABLE Q6H MT 10/26/20 06:00 10/31/20 11:34 DC 10/27/20 11:53 Insulin Human Lispro (HumaLOG INSULIN) SEE PROTOCOL TABLE Q6H MT 11/01/20 06:00 11/03/20 22:02 DC 11/03/20 17:18 Insulin Human Lispro (HumaLOG INSULIN) SEE PROTOCOL TABLE Q6H MT 11/01/20 09:00 11/01/20 09:27 DC Insulin Human Lispro (HumaLOG INSULIN) SEE PROTOCOL TABLE [facility] 10/23/20 21:00 10/23/20 14:57 DC Insulin Human Lispro (HumaLOG INSULIN) SEE PROTOCOL TABLE [facility] 10/24/20 21:00 10/26/20 06:10 DC Insulin Human Lispro (HumaLOG INSULIN) SEE PROTOCOL TABLE [facility] 11/04/20 21:00 Ketorolac Tromethamine (ToRADol) 15 mg Q6H PRN IV moderate PAIN OR FEVER 10/23/20 12:20 10/23/20 23:58 DC Lactated Ringer's 1,000 ml @ 70 mls/hr [id number] IV 10/23/20 03:45 10/23/20 09:17 DC Lactated Ringer's 1,000 ml @ 100 mls/hr Q10H IV 10/24/20 00:15 10/24/20 01:14 DC Lactated Ringer's 1,000 ml @ 100 mls/hr Q10H IV 10/25/20 11:00 10/25/20 12:00 DC Lactated Ringer's 1,000 ml @ 175 mls/hr Q5H43M IV 10/24/20 00:05 11/05/20 09:06 DC 11/05/20 06:41 Lactic Acid (Lac-Hydrin 12% Lotion) apply to feet and callu... DAILY TOP 10/31/20 09:00 11/18/20 11:01 Lactobacillus Acidophilus (Bacid) 1 ea BIDWM PO 10/23/20 18:00 11/18/20 08:04 Loperamide HCl (Imodium) 2 mg ASDIRECTED PRN PO DIARRHEA 11/03/20 11:20 11/04/20 00:15 Magnesium Hydroxide (Milk Of Magnesia) 30 ml DAILY PRN PO CONSTIPATION 10/23/20 03:45 11/01/20 16:49 DC 10/25/20 22:28 Magnesium Oxide (Mag-Ox) 800 mg BID@1000,1800 PO 11/18/20 10:00 11/18/20 18:01 11/18/20 11:01 Magnesium Sulfate/ Dextrose 1 gm/IV Miscellaneous Supplies 100 ml @ 100 mls/hr Q1H IV 11/18/20 08:00 11/18/20 07:56 DC Metoclopramide HCl (REGLAN INJection) 10 mg Q6H IV 10/30/20 11:00 11/06/20 07:49 DC 11/04/20 03:57 Metoclopramide HCl (REGLAN INJection) 10 mg Q6HP PRN IV NAUSEA OR VOMITING 10/24/20 00:15 10/24/20 01:14 DC Metoclopramide HCl (REGLAN INJection) 10 mg Q6HP PRN IV NAUSEA OR VOMITING 10/25/20 11:00 10/25/20 12:00 DC Metoclopramide HCl (REGLAN INJection) 10 mg Q6HP PRN IV NAUSEA OR VOMITING 11/06/20 07:50 11/07/20 16:05 DC Metoclopramide HCl (REGLAN INJection) 10 mg TID IV 10/24/20 16:00 10/27/20 14:07 DC 10/25/20 22:28 Metoclopramide HCl (REGLAN INJection) 10 mg TIDP PRN IV NAUSEA OR VOMITING 10/27/20 14:05 10/30/20 10:19 DC Metronidazole (Flagyl) 500 mg Q8H PO 11/07/20 14:00 11/18/20 13:54 Miscellaneous (Unresolved Clarification Entry) SEE LABEL COMMENTS DAILY XX 11/15/20 09:00 11/15/20 10:28 DC Morphine Sulfate (Morphine Sulfate Inj) 1 mg Q4H PRN IV MODERATE PAIN (PS 5-7) 10/23/20 11:25 10/23/20 23:58 DC Morphine Sulfate (Morphine Sulfate Inj) 4 mg Q3HP PRN IV SEVERE PAIN (PS 8-10) 10/24/20 00:05 10/25/20 11:24 DC Nicotine (Nicoderm Cq 21mg) 1 patch QHS TD 10/23/20 21:00 10/27/20 21:15 Nystatin (Mycostatin Powder, Nystop) Apply to abominal and gr... BID TOP 11/01/20 21:00 11/18/20 11:02 Ondansetron HCl (ZOFRAN INJection) 4 mg Q4HP PRN IV NAUSEA OR VOMITING 10/24/20 00:15 10/24/20 01:14 DC Ondansetron HCl (ZOFRAN INJection) 4 mg Q4HP PRN IV NAUSEA OR VOMITING 10/25/20 11:00 10/25/20 12:00 DC Ondansetron HCl (ZOFRAN INJection) 4 mg Q4HP PRN IV NAUSEA OR VOMITING 10/31/20 18:55 11/07/20 16:05 DC 11/01/20 01:06 Ondansetron HCl (Zofran Odt) 4 mg Q6H SL 10/25/20 06:00 10/31/20 18:56 DC 10/31/20 16:53 Ondansetron HCl (Zofran) 4 mg Q6HP PRN PO NAUSEA OR VOMITING 10/24/20 15:50 10/31/20 18:56 DC 10/25/20 15:01 Oxycodone/ Acetaminophen (Percocet 5mg/ 325mg Tablet) 1 tab ASDIRECTED PRN PO PAIN LEVEL 1-4 10/24/20 00:15 10/24/20 01:14 DC Oxycodone/ Acetaminophen (Percocet 5mg/ 325mg Tablet) 1 tab ASDIRECTED PRN PO PAIN LEVEL 1-4 10/25/20 11:00 10/25/20 12:00 DC Oxycodone/ Acetaminophen (Percocet 5mg/ 325mg Tablet) 1 tab Q4HP PRN PO MODERATE PAIN (PS 5-7) 10/24/20 00:05 10/29/20 09:57 Oxycodone/ Acetaminophen (Percocet 5mg/ 325mg Tablet) 2 tab Q4HP PRN PO SEVERE PAIN (PS 8-10) 10/24/20 00:05 11/16/20 18:42 Pantoprazole Sodium (Protonix) 40 mg DAILY IV 10/24/20 09:00 11/06/20 07:49 DC 11/05/20 10:16 Pantoprazole Sodium (Protonix) 40 mg DAILY PO 11/06/20 09:00 11/18/20 10:04 Pantoprazole Sodium (Protonix) 40 mg QHS PO 10/23/20 21:00 10/23/20 14:57 DC Phenol (Chloraseptic [place]) 1 spray Q2HP PRN MT SORE THROAT 10/26/20 06:05 Piperacillin Sod/ Tazobactam Sod 4.5 gm/Dextrose 50 ml @ 50 mls/hr Q6H IV 10/25/20 15:00 11/07/20 12:24 DC 11/07/20 04:13 Sodium Chloride 1,000 ml @ 200 mls/hr Q5H IV 10/23/20 09:15 10/24/20 00:08 DC 10/23/20 11:07 Sodium Chloride (Nacl 0.9%) 1,000 ml BOLUS IV 10/23/20 03:45 10/23/20 03:46 DC 10/23/20 07:39 Vancomycin HCl 500 mg/Dextrose 110 ml @ 110 mls/hr Q8H IV 10/23/20 13:00 10/24/20 13:43 DC 10/24/20 06:45 Vancomycin HCl 500 mg/Dextrose 110 ml @ 110 mls/hr Q8H IV 10/24/20 21:00 10/25/20 09:57 DC 10/25/20 04:24 Vancomycin HCl 500 mg/Dextrose 110 ml @ 110 mls/hr Q8H IV 10/25/20 14:00 10/25/20 14:27 DC 10/25/20 14:16 Vancomycin HCl 750 mg/IV Miscellaneous Supplies 1 each/ Dextrose 275 ml @ 275 mls/hr Q8H IV 10/23/20 12:00 10/24/20 18:37 DC 10/24/20 12:18 Vancomycin HCl 750 mg/IV Miscellaneous Supplies 1 each/ Dextrose 275 ml @ 275 mls/hr Q8H IV 10/24/20 13:00 10/24/20 18:37 DC 10/24/20 14:32 Vancomycin HCl 750 mg/IV Miscellaneous Supplies 1 each/ Sodium Chloride 275 ml @ 275 mls/hr Q8H IV 10/25/20 12:00 10/25/20 12:41 DC Vancomycin HCl 750 mg/IV Miscellaneous Supplies 1 each/ Sodium Chloride 275 ml @ 275 mls/hr Q8H IV 10/25/20 13:00 10/25/20 12:41 DC Vancomycin HCl 750 mg/IV Miscellaneous Supplies 1 each/ Sodium Chloride 275 ml @ 275 mls/hr Q8H IV 10/25/20 13:00 10/25/20 14:27 DC 10/25/20 13:23 Vancomycin HCl 1000 mg/IV Miscellaneous Supplies 1 each/ Dextrose 270 ml @ 270 mls/hr Q12H IV 10/23/20 07:00 10/23/20 11:01 DC Vancomycin HCl 1000 mg/IV Miscellaneous Supplies 1 each/ Dextrose 270 ml @ 270 mls/hr Q8H IV 10/24/20 20:00 10/25/20 09:57 DC 10/25/20 03:07 Allergies Coded Allergies: carisoprodol (Verified Allergy, Intermediate, rash, 01/23/20) Objective Physical Examination Examination GENERAL APPEARANCE:Patient seen, laying in bed, awake, alert, and oriented. Comfortable, in no acute distress. SKIN: Warm and moist. Right groin wound 100% granulation. Serous drainage. No odor, no purulence. Granulating well. LUNGS: Clear to auscultation bilaterally. No wheezing appreciated. HEART: No chest wall abnormalities. Regular rate and rhythm with no murmurs appreciated. EXTREMITIES: No edema identified. No calf tenderness. Vital Signs Vital Signs Date Time Temp Pulse Resp B/P (MAP) Pulse Ox O2 Delivery O2 Flow Rate FiO2 11/18/20 06:00 97.1 77 19 126/85 (99) 95 Room Air I&Os I&O- Last 24 Hours up to 6 AM 11/18/20 06:00 Intake Total 2600 ml Output Total 3575 ml Balance -975 ml Laboratory Data Labs 24H Laboratory Tests 2 11/17/20 19:32: Bedside Glucose (Misc Panel) 149H 11/18/20 05:49: Bedside Glucose (Misc Panel) 105 11/18/20 06:11: Immature Granulocyte % (Auto) 0.8, Neutrophils (%) (Auto) 57.1, Lymphocytes (%) (Auto) 27.0, Monocytes (%) (Auto) 9.0H, Eosinophils (%) (Auto) 5.1H, Basophils (%) (Auto) 1.0, Neutrophils # (Auto) 3.6, Lymphocytes # (Auto) 1.7, Monocytes # (Auto) 0.6, Eosinophils # (Auto) 0.3, Basophils # (Auto) 0.1, Nucleated Red Blood Cells % (auto) 0.0, Anion Gap 5L, Glomerular Filtration Rate > 60.0, Calcium Level 8.1L, Magnesium Level 1.4L, Total Bilirubin 0.3, Aspartate Amino Transf (AST/SGOT) 16, Alanine Aminotransferase (ALT/SGPT) 15, Alkaline Phosphatase 53, Total Protein 6.2L, Albumin 2.3L, Albumin/Globulin Ratio 0.6 11/18/20 11:32: Bedside Glucose (Misc Panel) 113H 11/18/20 16:22: Bedside Glucose (Misc Panel) 110H CBC/BMP Laboratory Tests 11/18/20 06:11 Impression Right groin wound s/p necrotizing fasciitis excision. Improving well. Continue with wound vac dressings. Alfonso Ambulate. Antibiotics per Medical team ID consult Plan to start d/c process next week with possible home care. Patient is aware of the plan and agreeable. Next wound vac change 11/21/20 Plan / VTE VTE Prophylaxis Ordered?: Yes SUZE DAMICO DO Nov 18, 2020 17:55
[2020-11-18] MEDS: NICOTINE 21MG/24HR 1 EA TRANSDERMAL TD SCH (21:00)
[2020-11-19 06:00] VITALS: BP 128/85
[2020-11-19] MEDS: metroNIDAZOLE (FLAGYL) 500MG TABLET PO SCH ×3 (06:00→21:19)
[2020-11-19] MEDS: FERROUS SULFATE 325MG TAB PO SCH ×2 (06:00→16:46)
[2020-11-19] MEDS: LACTOBACILLUS ACIDOPHILUS CAP (BACID) PO SCH ×2 (08:31→16:46)
[2020-11-19] MEDS: FUROSEMIDE 20 MG TAB PO SCH (08:31)
[2020-11-19] MEDS: PANTOPRAZOLE 40MG TAB (PROTONIX) PO SCH (08:31)
[2020-11-19] MEDS: HumaLOG INSULIN (NovoLOG) PER UNIT SC SCH ×4 (08:31→21:00)
[2020-11-19] MEDS: LEVEMIR (INSULIN DETEMIR) 1 UNITS/0.01ML SC SCH (08:31)
[2020-11-19] MEDS: DOXYCYCLINE HYCLATE 100MG TABLET PO SCH ×2 (08:31→21:18)
[2020-11-19] MEDS: APIXABAN 5 MG TAB (ELIQUIS) PO SCH ×2 (08:31→21:19)
[2020-11-19] MEDS: CYANOCOBALAMIN 500 MCG TAB PO SCH (08:31)
[2020-11-19] MEDS: NYSTATIN 100,000 UNITS/GM TOPICAL PWD 15 GM TOP SCH ×2 (08:32→21:19)
[2020-11-19] MEDS: VANICREAM MOISTURIZING SKIN CREAM 113GM TUBE TOP SCH ×2 (08:32→21:00)
[2020-11-19] MEDS: LACTIC ACID 12% LOTION 225 GM BTL TOP SCH (08:32)
[2020-11-19] MEDS: PERCOCET 5MG/325MG TAB PO PRN (16:47)
--- NOTE | 2020-11-19 20:25 | IPNPDOC ---
Date Seen The patient was seen on 11/19/20. Progress Note SUBJECTIVE: No acute complaints. Doing well with PT/OT. Per plastic surgery, possible for home d/c with home health. Denies chest pain, fevers, chills, n/v/d. OBJECTIVE: PHYSICAL EXAMINATION: VITAL SIGNS: please see below General: NAD, comfortable HEENT: PERRLA, EOMI, sclerae clear Neck: supple, normal ROM, no JVD Respiratory: lungs CTAB, no wheeze, no rales, no crackles CVS: RRR, normal S1, S2, no murmurs Abdo: large panus, enlarged scrotum- much improved and decreased swelling since admission and various surgery. Wound vac in place. MSK: no joint deformities, normal ROM Neuro: no focal neuro deficits, moving all 4 extremities, CN2-12 intact. Streng th 5/5 in all 4 extremities. No nystagmus. Psych: calm, cooperative, AAO x 3 LABORATORY DATA, IMAGING STUDIES, MICROBIOLOGY: Please see below. ASSESSMENT AND PLAN: 50 yr old w a hx of left UE DVT, ARJUN/ CPAP, Morbid Obesity and GERD, DM, who presented on 10/23/20 w c/o severe groin pain for several weeks and admitted for sepsis 2/2 Toby's gas gangrene involving right scrotum, inguinal region extending towards the perineum/buttock and upwards toward the flank with a subcutaneous abscess. S/p multiple surgeries for debridement, wound vac in place. 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 Currently on doxy and flagyl since 11/07/20- why? Will discuss with pharmacy and see if still needed - General and plastic surgery following closely - Dr. Deluna replaced wound vac on 11/12/20 and to change 11/21/12 - working with PFS for placement vs home with adequate services. Shortness of breath multifactorial due to ARJUN, obesity hypoventilation syndrome, HFpEF -Drops O2 when sleeping. -Not using the CPAP here, reports the mask straps does not fit and gets tangled in his hair. -C/w lasix 20 mg daily Diastolic CHF - Stable - Echo with EF of 65%, grade 2 diastolic dysfunction.No wall motion abnormality. Poor visualization due to body habitus. - lasix 20 mg daily Anemia likely multifactorial for iron deficiency and Vitamin B12 - C/w iron and b12 supplementation DM type II likely uncontrolled 2/2 to infection, surgery -HbA1c 8.3, BS better controlled -C/w AM levemir, ISS, FS AC/HS -consistent carb diet ARJUN - not using the hospital CPAP. Cannot bring his home CPAP. Class 3 obesity - BMI 75.5 complicates care - Patient was to be referred to bariatric surgery last year - delayed due to covid GERD -PPI Hx of UE DVT, DVT px - resumed eliquis on 11/14/20 Resolved issues: Sepsis due to Toby's gangrene Small bowel ileus post-operatively and possible gastroparesis: VINEET Hypophosphatemia Hypotension likely 2/2 to sepsis , dehydration and (post-op) anesthesia DISPOSITION: Will TB with consult services in the AM to solidify abx regimen. Plan is hopefully home with services in next several weeks VS, I&O, 24H, Natali Vital Signs/I&O Vital Signs Date Time Temp Pulse Resp B/P (MAP) Pulse Ox O2 Delivery O2 Flow Rate FiO2 11/19/20 17:17 17 11/19/20 06:00 97.6 90 128/85 (99) 94 Room Air I&O- Last 24 Hours up to 6 AM 11/19/20 06:00 Intake Total 1810 ml Output Total 2200 ml Balance -390 ml Laboratory Data 24H LABS Laboratory Tests 2 11/19/20 05:46: C-Reactive Protein, Quantitative 1.90H 11/19/20 05:47: Erythrocyte Sedimentation Rate 47H 11/19/20 06:25: Bedside Glucose (Misc Panel) 114H 11/19/20 11:11: Bedside Glucose (Misc Panel) 139H 11/19/20 16:19: Bedside Glucose (Misc Panel) 112H 11/19/20 20:07: Bedside Glucose (Misc Panel) 132H Current Medications Current Medications Medications (Trade) Dose Ordered Sig/Alexandr Route PRN Reason Start Time Stop Time Status Last Admin Dose Admin Acetaminophen (Tylenol Tab) 650 mg Q4H PRN PO FEVER 10/23/20 03:45 11/09/20 21:02 Acetaminophen/ Hydrocodone Bitart (Anexsia, Everetts 7.5mg/325mg) 1 tab Q6H PO 10/23/20 12:00 10/25/20 11:24 DC 10/24/20 23:44 Al Hydrox/Mg Hydrox/Simethicone (Mylanta) 30 ml DAILY PRN PO DYSPEPSIA 10/23/20 03:45 Albuterol Sulfate (Proventil, Ventolin Hfa) 2 puff Q4H PRN INH SHORTNESS OF BREATH 10/23/20 06:45 Apixaban (Eliquis) 5 mg BID PO 10/23/20 09:00 10/23/20 11:27 DC Apixaban (Eliquis) 5 mg BID PO 11/14/20 21:00 11/19/20 08:31 Ceftaroline Fosamil 600 mg/ Dextrose 50 ml @ 50 mls/hr Q12H IV 10/23/20 17:00 10/23/20 09:17 DC Ceftriaxone Sodium 2 gm/ Dextrose 50 ml @ 100 mls/hr Q24H IV 10/23/20 11:00 10/23/20 11:27 DC 10/23/20 11:10 Clindamycin Phosphate 600 mg/ IV Miscellaneous Supplies 50 ml @ 100 mls/hr Q6H IV 10/23/20 15:00 10/25/20 14:27 DC 10/25/20 08:55 Cyanocobalamin (Vitamin B12) 1,000 mcg DAILY PO 10/25/20 09:00 11/19/20 08:31 Dextrose (Dextrose 50%) 25 ml ASDIRECTED PRN IV SEE LABEL COMMENTS 10/23/20 09:30 10/31/20 11:34 DC Dextrose (Dextrose 50%) 25 ml ASDIRECTED PRN IV SEE LABEL COMMENTS 10/31/20 19:15 Docusate Sodium (Colace) 100 mg BID PO 10/24/20 21:00 11/01/20 16:49 DC 10/31/20 10:12 Doxycycline Hyclate (Vibramycin) 100 mg BID PO 11/07/20 09:00 11/19/20 08:31 Emollient Cream (Vanicream) 1 dose BID TOP 10/23/20 21:00 11/19/20 08:32 Fentanyl Citrate (Sublimaze) 25 mcg Q5MP PRN IV PAIN LEVEL 5-10 10/24/20 00:15 10/24/20 01:14 DC Fentanyl Citrate (Sublimaze) 25 mcg Q5MP PRN IV PAIN LEVEL 5-10 10/25/20 11:00 10/25/20 12:00 DC Ferrous Sulfate (Ferrous Sulfate) 325 mg BID PO 10/24/20 21:00 11/07/20 12:32 DC 11/07/20 09:22 Ferrous Sulfate (Ferrous Sulfate) 325 mg BID@0600,1800 PO 11/07/20 18:00 11/19/20 16:46 Furosemide (Lasix) 20 mg DAILY PO 10/23/20 09:00 10/23/20 11:06 DC Furosemide (Lasix) 20 mg DAILY PO 11/07/20 09:00 11/19/20 08:31 Glucagon (Glucagon) 1 mg ASDIRECTED PRN SC SEE LABEL COMMENTS 10/23/20 09:30 10/31/20 11:34 DC Glucagon (Glucagon) 1 mg ASDIRECTED PRN SC SEE LABEL COMMENTS 10/31/20 19:15 Glucose (Glucose) 16 GM ASDIRECTED PRN PO SEE LABEL COMMENTS 10/23/20 09:30 10/31/20 11:34 DC Glucose (Glucose) 16 GM ASDIRECTED PRN PO SEE LABEL COMMENTS 10/31/20 19:15 Heparin Sodium (Porcine) (Heparin) 5,000 units Q8H SQ 10/23/20 14:00 10/23/20 15:06 DC Home Med (Med Rec Complete!) ASDIRECTED XX 10/23/20 04:00 10/23/20 03:53 DC Ibuprofen (Advil) 800 mg TID PO 10/25/20 09:00 11/01/20 08:29 DC 10/31/20 16:53 Ibuprofen (Advil) 800 mg TID PO 10/25/20 16:00 10/25/20 11:29 DC Imipenem/ Cilastatin Sodium 1000 mg/Dextrose 100 ml @ 100 mls/hr Q6H IV 10/23/20 11:25 10/23/20 11:40 DC Imipenem/ Cilastatin Sodium 1000 mg/Sodium Chloride 250 ml @ 250 mls/hr Q6H IV 10/23/20 14:00 10/25/20 14:27 DC 10/25/20 01:13 Insulin Detemir (Levemir Insulin) 10 units QAM SC 10/24/20 09:00 10/24/20 15:49 DC 10/24/20 08:21 Insulin Detemir (Levemir Insulin) 16 units QAM SC 10/25/20 09:00 10/26/20 16:40 DC 10/25/20 12:06 Insulin Detemir (Levemir Insulin) 20 units QAM SC 10/27/20 09:00 11/19/20 08:31 Insulin Human Lispro (HumaLOG INSULIN) SEE PROTOCOL TABLE AC SC 10/23/20 12:00 10/23/20 14:57 DC Insulin Human Lispro (HumaLOG INSULIN) SEE PROTOCOL TABLE AC SC 10/24/20 12:00 10/26/20 06:09 DC 10/25/20 17:26 Insulin Human Lispro (HumaLOG INSULIN) SEE PROTOCOL TABLE AC SC 11/05/20 07:30 11/19/20 16:46 Insulin Human Lispro (HumaLOG INSULIN) SEE PROTOCOL TABLE ACHS SC 11/03/20 22:00 11/04/20 22:22 DC Insulin Human Lispro (HumaLOG INSULIN) SEE PROTOCOL TABLE Q6H WV 10/23/20 18:00 10/24/20 10:52 DC 10/24/20 05:51 Insulin Human Lispro (HumaLOG INSULIN) SEE PROTOCOL TABLE Q6H WV 10/26/20 06:00 10/31/20 11:34 DC 10/27/20 11:53 Insulin Human Lispro (HumaLOG INSULIN) SEE PROTOCOL TABLE Q6H WV 11/01/20 06:00 11/03/20 22:02 DC 11/03/20 17:18 Insulin Human Lispro (HumaLOG INSULIN) SEE PROTOCOL TABLE Q6H WV 11/01/20 09:00 11/01/20 09:27 DC Insulin Human Lispro (HumaLOG INSULIN) SEE PROTOCOL TABLE QHS SC 10/23/20 21:00 10/23/20 14:57 DC Insulin Human Lispro (HumaLOG INSULIN) SEE PROTOCOL TABLE QHS SC 10/24/20 21:00 10/26/20 06:10 DC Insulin Human Lispro (HumaLOG INSULIN) SEE PROTOCOL [facility] 11/04/20 21:00 Ketorolac Tromethamine (ToRADol) 15 mg Q6H PRN IV moderate PAIN OR FEVER 10/23/20 12:20 10/23/20 23:58 DC Lactated Ringer's 1,000 ml @ 70 mls/hr [id number] IV 10/23/20 03:45 10/23/20 09:17 DC Lactated Ringer's 1,000 ml @ 100 mls/hr Q10H IV 10/24/20 00:15 10/24/20 01:14 DC Lactated Ringer's 1,000 ml @ 100 mls/hr Q10H IV 10/25/20 11:00 10/25/20 12:00 DC Lactated Ringer's 1,000 ml @ 175 mls/hr Q5H43M IV 10/24/20 00:05 11/05/20 09:06 DC 11/05/20 06:41 Lactic Acid (Lac-Hydrin 12% Lotion) apply to feet and callu... DAILY TOP 10/31/20 09:00 11/19/20 08:32 Lactobacillus Acidophilus (Bacid) 1 ea BIDWM PO 10/23/20 18:00 11/19/20 16:46 Loperamide HCl (Imodium) 2 mg ASDIRECTED PRN PO DIARRHEA 11/03/20 11:20 11/04/20 00:15 Magnesium Hydroxide (Milk Of Magnesia) 30 ml DAILY PRN PO CONSTIPATION 10/23/20 03:45 11/01/20 16:49 DC 10/25/20 22:28 Magnesium Oxide (Mag-Ox) 800 mg BID@1000,1800 PO 11/18/20 10:00 11/18/20 18:01 DC 11/18/20 18:05 Magnesium Sulfate/ Dextrose 1 gm/IV Miscellaneous Supplies 100 ml @ 100 mls/hr Q1H IV 11/18/20 08:00 11/18/20 07:56 DC Metoclopramide HCl (REGLAN INJection) 10 mg Q6H IV 10/30/20 11:00 11/06/20 07:49 DC 11/04/20 03:57 Metoclopramide HCl (REGLAN INJection) 10 mg Q6HP PRN IV NAUSEA OR VOMITING 10/24/20 00:15 10/24/20 01:14 DC Metoclopramide HCl (REGLAN INJection) 10 mg Q6HP PRN IV NAUSEA OR VOMITING 10/25/20 11:00 10/25/20 12:00 DC Metoclopramide HCl (REGLAN INJection) 10 mg Q6HP PRN IV NAUSEA OR VOMITING 11/06/20 07:50 11/07/20 16:05 DC Metoclopramide HCl (REGLAN INJection) 10 mg TID IV 10/24/20 16:00 10/27/20 14:07 DC 10/25/20 22:28 Metoclopramide HCl (REGLAN INJection) 10 mg TIDP PRN IV NAUSEA OR VOMITING 10/27/20 14:05 10/30/20 10:19 DC Metronidazole (Flagyl) 500 mg Q8H PO 11/07/20 14:00 11/19/20 14:05 Miscellaneous (Unresolved Clarification Entry) SEE LABEL COMMENTS DAILY XX 11/15/20 09:00 11/15/20 10:28 DC Morphine Sulfate (Morphine Sulfate Inj) 1 mg Q4H PRN IV MODERATE PAIN (PS 5-7) 10/23/20 11:25 10/23/20 23:58 DC Morphine Sulfate (Morphine Sulfate Inj) 4 mg Q3HP PRN IV SEVERE PAIN (PS 8-10) 10/24/20 00:05 10/25/20 11:24 DC Nicotine (Nicoderm Cq 21mg) 1 patch QHS TD 10/23/20 21:00 10/27/20 21:15 Nystatin (Mycostatin Powder, Nystop) Apply to abominal and gr... BID TOP 11/01/20 21:00 11/19/20 08:32 Ondansetron HCl (ZOFRAN INJection) 4 mg Q4HP PRN IV NAUSEA OR VOMITING 10/24/20 00:15 10/24/20 01:14 DC Ondansetron HCl (ZOFRAN INJection) 4 mg Q4HP PRN IV NAUSEA OR VOMITING 10/25/20 11:00 10/25/20 12:00 DC Ondansetron HCl (ZOFRAN INJection) 4 mg Q4HP PRN IV NAUSEA OR VOMITING 10/31/20 18:55 11/07/20 16:05 DC 11/01/20 01:06 Ondansetron HCl (Zofran Odt) 4 mg Q6H SL 10/25/20 06:00 10/31/20 18:56 DC 10/31/20 16:53 Ondansetron HCl (Zofran) 4 mg Q6HP PRN PO NAUSEA OR VOMITING 10/24/20 15:50 10/31/20 18:56 DC 10/25/20 15:01 Oxycodone/ Acetaminophen (Percocet 5mg/ 325mg Tablet) 1 tab ASDIRECTED PRN PO PAIN LEVEL 1-4 10/24/20 00:15 10/24/20 01:14 DC Oxycodone/ Acetaminophen (Percocet 5mg/ 325mg Tablet) 1 tab ASDIRECTED PRN PO PAIN LEVEL 1-4 10/25/20 11:00 10/25/20 12:00 DC Oxycodone/ Acetaminophen (Percocet 5mg/ 325mg Tablet) 1 tab Q4HP PRN PO MODERATE PAIN (PS 5-7) 10/24/20 00:05 10/29/20 09:57 Oxycodone/ Acetaminophen (Percocet 5mg/ 325mg Tablet) 2 tab Q4HP PRN PO SEVERE PAIN (PS 8-10) 10/24/20 00:05 11/19/20 16:47 Pantoprazole Sodium (Protonix) 40 mg DAILY IV 10/24/20 09:00 11/06/20 07:49 DC 11/05/20 10:16 Pantoprazole Sodium (Protonix) 40 mg DAILY PO 11/06/20 09:00 11/19/20 08:31 Pantoprazole Sodium (Protonix) 40 mg QHS PO 10/23/20 21:00 10/23/20 14:57 DC Phenol (Chloraseptic Weaver) 1 spray Q2HP PRN MT SORE THROAT 10/26/20 06:05 Piperacillin Sod/ Tazobactam Sod 4.5 gm/Dextrose 50 ml @ 50 mls/hr Q6H IV 10/25/20 15:00 11/07/20 12:24 DC 11/07/20 04:13 Sodium Chloride 1,000 ml @ 200 mls/hr Q5H IV 10/23/20 09:15 10/24/20 00:08 DC 10/23/20 11:07 Sodium Chloride (Nacl 0.9%) 1,000 ml BOLUS IV 10/23/20 03:45 10/23/20 03:46 DC 10/23/20 07:39 Vancomycin HCl 500 mg/Dextrose 110 ml @ 110 mls/hr Q8H IV 10/23/20 13:00 10/24/20 13:43 DC 10/24/20 06:45 Vancomycin HCl 500 mg/Dextrose 110 ml @ 110 mls/hr Q8H IV 10/24/20 21:00 10/25/20 09:57 DC 10/25/20 04:24 Vancomycin HCl 500 mg/Dextrose 110 ml @ 110 mls/hr Q8H IV 10/25/20 14:00 10/25/20 14:27 DC 10/25/20 14:16 Vancomycin HCl 750 mg/IV Miscellaneous Supplies 1 each/ Dextrose 275 ml @ 275 mls/hr Q8H IV 10/23/20 12:00 10/24/20 18:37 DC 10/24/20 12:18 Vancomycin HCl 750 mg/IV Miscellaneous Supplies 1 each/ Dextrose 275 ml @ 275 mls/hr Q8H IV 10/24/20 13:00 10/24/20 18:37 DC 10/24/20 14:32 Vancomycin HCl 750 mg/IV Miscellaneous Supplies 1 each/ Sodium Chloride 275 ml @ 275 mls/hr Q8H IV 10/25/20 12:00 10/25/20 12:41 DC Vancomycin HCl 750 mg/IV Miscellaneous Supplies 1 each/ Sodium Chloride 275 ml @ 275 mls/hr Q8H IV 10/25/20 13:00 10/25/20 12:41 DC Vancomycin HCl 750 mg/IV Miscellaneous Supplies 1 each/ Sodium Chloride 275 ml @ 275 mls/hr Q8H IV 10/25/20 13:00 10/25/20 14:27 DC 10/25/20 13:23 Vancomycin HCl 1000 mg/IV Miscellaneous Supplies 1 each/ Dextrose 270 ml @ 270 mls/hr Q12H IV 10/23/20 07:00 10/23/20 11:01 DC Vancomycin HCl 1000 mg/IV Miscellaneous Supplies 1 each/ Dextrose 270 ml @ 270 mls/hr Q8H IV 2/25/21 20:00 10/25/20 09:57 DC 10/25/20 03:07 Allergies Coded Allergies: carisoprodol (Verified Allergy, Intermediate, rash, 01/23/20) Jane Varghese MD Nov 19, 2020 20:25
[2020-11-19] MEDS: NICOTINE 21MG/24HR 1 EA TRANSDERMAL TD SCH (21:00)
[2020-11-20 06:00] VITALS: BP 137/90
[2020-11-20] MEDS: FERROUS SULFATE 325MG TAB PO SCH ×2 (06:46→17:50)
[2020-11-20] MEDS: metroNIDAZOLE (FLAGYL) 500MG TABLET PO SCH ×3 (06:46→21:07)
[2020-11-20] MEDS: LACTOBACILLUS ACIDOPHILUS CAP (BACID) PO SCH ×2 (08:49→17:49)
[2020-11-20] MEDS: HumaLOG INSULIN (NovoLOG) PER UNIT SC SCH ×4 (08:49→21:00)
[2020-11-20] MEDS: LEVEMIR (INSULIN DETEMIR) 1 UNITS/0.01ML SC SCH (08:49)
[2020-11-20] MEDS: CYANOCOBALAMIN 500 MCG TAB PO SCH (08:50)
[2020-11-20] MEDS: PANTOPRAZOLE 40MG TAB (PROTONIX) PO SCH (08:50)
[2020-11-20] MEDS: APIXABAN 5 MG TAB (ELIQUIS) PO SCH ×2 (08:50→21:07)
[2020-11-20] MEDS: FUROSEMIDE 20 MG TAB PO SCH (08:50)
[2020-11-20] MEDS: DOXYCYCLINE HYCLATE 100MG TABLET PO SCH ×2 (08:50→21:07)
[2020-11-20] MEDS: VANICREAM MOISTURIZING SKIN CREAM 113GM TUBE TOP SCH ×2 (08:50→21:00)
[2020-11-20] MEDS: LACTIC ACID 12% LOTION 225 GM BTL TOP SCH (08:51)
[2020-11-20] MEDS: NYSTATIN 100,000 UNITS/GM TOPICAL PWD 15 GM TOP SCH ×2 (08:51→21:08)
[2020-11-20] MEDS: NICOTINE 21MG/24HR 1 EA TRANSDERMAL TD SCH (21:00)
[2020-11-21] MEDS: PERCOCET 5MG/325MG TAB PO PRN ×2 (00:23→21:46)
[2020-11-21 05:00] VITALS: BP 135/87
[2020-11-21] MEDS: FERROUS SULFATE 325MG TAB PO SCH ×2 (05:16→17:45)
[2020-11-21] MEDS: metroNIDAZOLE (FLAGYL) 500MG TABLET PO SCH ×3 (05:16→20:06)
[2020-11-21] MEDS: APIXABAN 5 MG TAB (ELIQUIS) PO SCH ×2 (08:26→20:06)
[2020-11-21] MEDS: DOXYCYCLINE HYCLATE 100MG TABLET PO SCH ×2 (08:26→20:07)
[2020-11-21] MEDS: CYANOCOBALAMIN 500 MCG TAB PO SCH (08:27)
[2020-11-21] MEDS: PANTOPRAZOLE 40MG TAB (PROTONIX) PO SCH (08:27)
[2020-11-21] MEDS: LACTOBACILLUS ACIDOPHILUS CAP (BACID) PO SCH ×2 (08:28→17:45)
[2020-11-21] MEDS: FUROSEMIDE 20 MG TAB PO SCH (08:28)
[2020-11-21] MEDS: LEVEMIR (INSULIN DETEMIR) 1 UNITS/0.01ML SC SCH (08:29)
[2020-11-21] MEDS: HumaLOG INSULIN (NovoLOG) PER UNIT SC SCH ×4 (08:29→21:00)
[2020-11-21] MEDS: LACTIC ACID 12% LOTION 225 GM BTL TOP SCH (08:30)
[2020-11-21] MEDS: VANICREAM MOISTURIZING SKIN CREAM 113GM TUBE TOP SCH ×2 (08:31→20:07)
[2020-11-21] MEDS: NYSTATIN 100,000 UNITS/GM TOPICAL PWD 15 GM TOP SCH ×2 (08:32→20:08)
[2020-11-21] MEDS: NICOTINE 21MG/24HR 1 EA TRANSDERMAL TD SCH (20:07)
[2020-11-22] MEDS: metroNIDAZOLE (FLAGYL) 500MG TABLET PO SCH ×2 (05:44→14:04)
[2020-11-22] MEDS: FERROUS SULFATE 325MG TAB PO SCH (05:44)
[2020-11-22 06:00] VITALS: BP 138/88
[2020-11-22] MEDS: LEVEMIR (INSULIN DETEMIR) 1 UNITS/0.01ML SC SCH (08:28)
[2020-11-22] MEDS: HumaLOG INSULIN (NovoLOG) PER UNIT SC SCH ×2 (08:29→12:00)
[2020-11-22] MEDS: LACTOBACILLUS ACIDOPHILUS CAP (BACID) PO SCH (08:30)
[2020-11-22] MEDS: APIXABAN 5 MG TAB (ELIQUIS) PO SCH (08:30)
[2020-11-22] MEDS: CYANOCOBALAMIN 500 MCG TAB PO SCH (08:30)
[2020-11-22] MEDS: PANTOPRAZOLE 40MG TAB (PROTONIX) PO SCH (08:30)
[2020-11-22] MEDS: DOXYCYCLINE HYCLATE 100MG TABLET PO SCH (08:30)
[2020-11-22] MEDS: FUROSEMIDE 20 MG TAB PO SCH (08:30)
[2020-11-22] MEDS: NYSTATIN 100,000 UNITS/GM TOPICAL PWD 15 GM TOP SCH (08:31)
[2020-11-22] MEDS: LACTIC ACID 12% LOTION 225 GM BTL TOP SCH (08:32)
[2020-11-22] MEDS: VANICREAM MOISTURIZING SKIN CREAM 113GM TUBE TOP SCH (08:32)
[2020-11-22] MEDS: PERCOCET 5MG/325MG TAB PO PRN ×2 (09:43→14:04)
[2020-11-22] MEDS ORDERED: PERCOCET PO (11:07)
[2020-11-22] MEDS ORDERED: NYST10006 TOP (11:07)
[2020-11-22] MEDS ORDERED: FERR325T18 PO (11:07)
[2020-11-22] MEDS ORDERED: NICO21PAT TD (11:07)
[2020-11-22] MEDS ORDERED: LACH12LO TOP (11:07)
[2020-11-22] MEDS ORDERED: PANT40TA29 PO (11:07)
[2020-11-22] MEDS ORDERED: VANI1CRE5 TOP (11:07)
[2020-11-22] MEDS ORDERED: VITA500T40 PO (11:07)
[2020-11-22] MEDS ORDERED: INSUHUMDS SC ×2 (11:07)
[2020-11-22] MEDS ORDERED: ACET1TAB55 PO (11:07)
[2020-11-22] MEDS ORDERED: INSUDET SC (11:07)
[2020-11-22] MEDS ORDERED: MYLASSUD PO (11:07)
[2020-11-22 14:00] VITALS: BP 128/84
[2020-11-22 14:04] VITALS: BP 138/88
--- NOTE | 2020-11-22 15:17 | DS.PDOC ---
Discharge Summary General Date of Admission Oct 23, 2020 at 03:33 Date of Discharge 11/22/20 Attending Physician: Jane Varghese MD Discharge Summary HISTORY OF PRESENT ILLNESS: This 50 yr old presented w c/o severe groin pain for several weeks that was associated with episodes of hot flushes. He also has raw skin on his buttocks. He denied having fevers, chills nausea or vomiting. He was admitted on 10/23/20 because pain was unbearable. Patient was admitted for sepsis 2/ Toby's gas gangrene involving right scrotum, inguinal region extending towards the perineum/buttock and upwards toward the flank with a subcutaneous abscess. HOSPITAL COURSE: Patient underwent multiple surgeries for debridement, wound vac was placed. Urology and plastic surgery were both consulted to help with management of right groin, perineal wound. Abscess grew several anaerobic organisms and staph hominis in the aerobic bottle. He received 2 weeks of Zosyn (ended 11/07/20). Was on doxy and flagyl since 11/07- but then abx stopped as was not needed further per ID. Plastic surgery replaced wound vac on 11/12/20 and 11/21/12. His shortness of breath was likely multifactorial due to ARJUN, obesity hypoventilation syndrome, HFpEF. This also improved over time. He does not use the CPAP here, reports the mask straps does not fit and gets tangled in his hair. He tolerates lasix fine. Other chronic issues are stable. PT: continues to improve slowly but requiring help with wound vac, PT/OT benefits from continued rehab services. Patient as discharged 11/22/20 to [facility] for continued care/rehab. At time of discharge, patient had no acute complaints. Patient will follow up with Dr. Amezquita, histology specialist, after discharge. It is recommended that wound vac is changed Q3 days. 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 FAMILY HISTORY: His mother in a MVA DISCHARGE MEDICATIONS: PHYSICAL EXAMINATION: VITAL SIGNS: please see below General: NAD, comfortable HEENT: PERRLA, EOMI, sclerae clear Neck: supple, normal ROM, no JVD Respiratory: lungs CTAB, no wheeze, no rales, no crackles CVS: RRR, normal S1, S2, no murmurs Abdo: morbidly obese abd, large lower abdominal pannus, Wound vac in place. Significantly decreased erythema, swelling. No tenderness noted on palpation MSK: no joint deformities, normal ROM Neuro: no focal neuro deficits, moving all 4 extremities, CN2-12 intact. Strength 5/5 in all 4 extremities. No nystagmus. Psych: calm, cooperative, AAO x 3 LABORATORY DATA, IMAGING STUDIES, MICROBIOLOGY: Please see below. ASSESSMENT: 50 yr old w a hx of left UE DVT, ARJUN/ CPAP, Morbid Obesity and GERD, DM, who presented on 10/23/20 w c/o severe groin pain for several weeks and admitted for sepsis 2/2 Toby's gas gangrene involving right scrotum, inguinal region extending towards the perineum/buttock and upwards toward the flank with a subcutaneous abscess. S/p multiple surgeries for debridement, wound vac in place. 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 Also was on doxy, flagyl 11/07- - General and plastic surgery has been following patient here closely - Dr. Deluna replaced wound vac on 11/12/20 and changed 11/21/12 - C/w changing wound vac Q3 days, wound care per plastic surgery. F/u with Dr. Amezquita at discharge, histology specialist, [place], [place] Shortness of breath multifactorial due to ARJUN, obesity hypoventilation syndrome, HFpEF -Drops O2 when sleeping. -Not using the CPAP here, reports the mask straps does not fit and gets tangled in his hair. -Much improved -C/w lasix 20 mg daily Diastolic CHF - Stable - Echo with EF of 65%, grade 2 diastolic dysfunction.No wall motion abnormality. Poor visualization due to body habitus. - lasix 20 mg daily Anemia likely multifactorial for iron deficiency and Vitamin B12 - C/w iron and b12 supplementation DM type II likely uncontrolled 2/2 to infection, surgery -HbA1c 8.3, BS better controlled -C/w AM levemir, ISS, FS AC/HS -consistent carb diet ARJUN - not using the hospital CPAP. Cannot bring his home CPAP. Class 3 obesity - BMI 75.5 complicates care - Patient was to be referred to bariatric surgery last year - delayed due to covid GERD -PPI Hx of UE DVT, DVT px - Eliquis Resolved issues: Sepsis due to Toby's gangrene Small bowel ileus post-operatively and possible gastroparesis VINEET Hypophosphatemia Hypotension likely 2/2 to sepsis , dehydration and (post-op) anesthesia DISPOSITION: Discharged today to [facility]. F/u with Dr. Amezquita, histology specialist arranged prior to discharge. TIME SPENT ON DISCHARGE: 40 minutes. Vital Signs/I&Os Vital Signs Date Time Temp Pulse Resp B/P (MAP) Pulse Ox O2 Delivery O2 Flow Rate FiO2 11/22/20 14:04 98.1 90 18 138/88 96 Room Air 10.0 50 I&O- Last 24 Hours up to 6 AM 11/22/20 06:00 Intake Total 3060 ml Output Total 2450 ml Balance 610 ml Laboratory Data Labs 24H Laboratory Tests 2 11/21/20 16:39: Bedside Glucose (Misc Panel) 141H 11/21/20 21:32: Bedside Glucose (Misc Panel) 177H 11/21/20 23:45: Coronavirus (COVID-19)(PCR) NEGATIVE 11/22/20 06:19: Bedside Glucose (Misc Panel) 110H 11/22/20 11:47: Bedside Glucose (Misc Panel) 105 FSBS Laboratory Tests Test 11/21/20 16:39 11/21/20 21:32 11/22/20 06:19 11/22/20 11:47 Range/Units Bedside Glucose (Misc Panel) 141 177 110 105 70-105 MG/DL Discharge Medications Scheduled Apixaban (Eliquis) 5 Mg Tablet, 5 MG PO BID, (Reported) Cyanocobalamin (Vitamin B-12) (Vitamin B-12) 500 Mcg Tablet, 1,000 MCG PO DAILY Emollient Base (Vanicream) 453 Gm Cream..g., 1 DOSE TOP BID Apply to bilateral lower ext Ferrous Sulfate (Ferrous Sulfate) 325 Mg Tablet, 325 MG PO BID@0600,1800 Furosemide (Lasix) 20 Mg Tablet, 20 MG PO DAILY, (Reported) Hydrocodone/Acetaminophen (Hydrocodone-Acetamin 7.5-325) 1 Each Tablet, 1 TAB PO Q6H, (Reported) Insulin Detemir (Levemir) 100 Unit/1 Ml Vial, 20 UNITS SC QAM Insulin Human Lispro (Humalog) 100 Unit/1 Ml Vial, 0 UNITS SC AC Insulin Human Lispro (Humalog) 100 Unit/1 Ml Vial, 0 UNITS SC QHS Lactic Acid (Ama-Hydrolac) 222 Ml Lotion, 1 DOSE TOP DAILY Apply to feet and calluses daily Nicotine (Nicotine Patch) 21 Mg Patch.td24, 1 PATCH TD QHS Nystatin (Nystop) 60 Gm Powder, 0 DOSE TOP BID Apply to abdominal and groin folds Omeprazole (Omeprazole) 40 Mg Capsule.dr, 40 MG PO QHS, (Reported) Pantoprazole Sodium (Pantoprazole Sodium) 40 Mg Tablet.dr, 40 MG PO DAILY Scheduled PRN Acetaminophen (Acetaminophen) 325 Mg Tablet, 650 MG PO Q6HP PRN for FEVER Albuterol Sulfate (Proair Hfa) 8.5 Gm Hfa.aer.ad, 2 PUFF INH Q4H PRN for SHORTNESS OF BREATH, (Reported) Aluminum/Magnesium/Simeth (Mag-Al Plus Suspension) 30 Ml Oral.susp, 30 ML PO DAILYPRN PRN for DYSPEPSIA Oxycodone/Acetaminophen (Oxycodone-Acetaminophen 5-325) 1 Each Tablet, 1 TAB PO Q6HP PRN for MODERATE PAIN (PS 5-7) Oxycodone/Acetaminophen (Oxycodone-Acetaminophen 5-325) 1 Each Tablet, 2 TAB PO Q6HP PRN for SEVERE PAIN (PS 8-10) Allergies Coded Allergies: carisoprodol (Verified Allergy, Intermediate, rash, 01/23/20) Jane Varghese MD Nov 22, 2020 15:17
--- NOTE | 2020-11-24 22:56 | ROOPDOC ---
[facility] Report Of Operation Report of Operation DATE OF PROCEDURE: 10/23/20 PREPROCEDURE DIAGNOSES: necrotizing wound infection of right groin, right scrotal abscess. 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 PROCEDURE: Debridement of necrotic tissues, drainage of abscess and infected fluid, right groin. SURGEON: Heath Sesay MD ELECTRICAL SYSTEMS DESIGN ENGINEER: ANESTHESIA: General Endotracheal Anesthesia. ESTIMATED BLOOD LOSS: Approximately 200 mL. COMPLICATIONS: none, Patient extubated, vasopressors weaned off. REMARKS: Patient is a 42-year-old male morbidly obese with a BMI of 75 presents to the emergency room last night with worsening right lower abdominal wall, right groin erythema and swelling as well as right suprapubic panniculus swelling. PROCEDURE NOTE: Necrotizing soft tissue infection involving the right groin, right lower abdomen, right suprapubic panniculus. No scrotal abscess noted but the anal shaft is retracted into the soft tissue of the suprapubic panniculus. I asked the fish conservationist urologist to be available during the surgery for possible involvement of the scrotum. He placed a Soto catheter prior to starting the surgery as we were not able to access the penile shaft and opening.. DESCRIPTION OF PROCEDURE: Patient has been on multiple antibiotics including Zosyn, vancomycin since admission overnight to the hospital. Initially this was deemed to be more panniculitis but notably patient has markedly elevated CRP at 35.9, hyponatremia, acute kidney injury, leukocytosis all pointing to a necrotizing soft tissue infection. His blood pressure is slow but able to maintain good mentation and currently not on pressors. We brought him to the recovery area had to transfer him to a narrower bed to be accommodated through the operating room door's and transferred him to the operating room table with bed extenders to accommodate his body habitus. Bilateral sequential compression device placed in both lower extremities were DVT prophylaxis. Gen. endotracheal anesthesia was established. Patient was placed on Mando-Synephrine. At to call our urologist to place a Soto catheter as his penis is retracted into the soft tissue of the suprapubic panniculus (mons pubis). I used a panniculus retractor used by the obstetricians to help retract the abdominal wall pannus over a from the right groin likewise nylon tapes to secure this to the operating room table for better visualization of the groin area. The lower abdominal wall on the right side in cluding the groin, thigh area to the knees extending past midline to the left lower abdominal wall and the whole of the markedly enlarged suprapubic pannus was prepped and draped in the usual sterile fashion with use of Betadine preps.We paused for a surgical timeout using both pre-incision safety checklist to verify correct patient, procedure site and additional clinical information prior to beginning the procedure On initial examination, angry-looking erythema extending from the right lower abdominal wall most prominent along the right groin in the right lateral thigh area with bogginess of the underlying soft tissue. There were a few areas of skin breakdown medially with drainage of foul-smelling brownish thin fluid. The erythema extends to the medial wall of the suprapubic pannus. There is some bogginess also associated with this to the scrotum. Scrotum is hard to define from the midline panniculus though I could not palpate or feel a separate fluid collection in the scrotum itself. The erythema extends to the upper thigh area there is some necrotic skin more medially at the groin area. I started cutting out the obviously necrotic skin taking this down through the subcutaneous tissue and immediately got drainage of the typical thin brownish dishwashing type of fluid consistent with necrotizing soft tissue infection. I obtained specimens for aerobic and anaerobic cultures. This was taken deep through to the thick subcutaneous tissue of the panniculus and thigh area through to the level of the fascia otoniel but this does not seem to be involving the muscles. I extended the incision following the tract of the fluid collections and abscesses down to the lateral thigh area where there is a deeper collection. This also extends up towards the lower portion of the abdominal wall pannus and I continued debriding obviously , necrotic and ischemic tissues and liquefied fat. This also extends to the medial wall of the suprapubic panniculus and the upper thigh area. This does not seem to involve the scrotum itself. Then the midline panniculus, this did not come deeper than the layer of the tunica vaginalis. I made several counter incisions more medially at the suprapubic panniculus to gauge its medial extent. All obvious necrotic tissues were removed. All obvious ischemic soft tissues and skin was likewise removed. Towards the middle we were getting to an area where is was oozing a lot. I had t o take a branch or probably part of the greater saphenous vein and tied this off with 2-0 Vicryl's. There is some conglomeration of hardened lymphatic tissues and lymph nodes which were also losing a good amount during dissection and had to stop medially around this area as the anatomy itself was hard to define secondary to his habitus and the ongoing inflammation. Once I got to healthy areas I stopped and performed hemostasis. In the end I got an open wound measuring 50 cm transversely, 30 cm vertically and 6 cm deep this was packed with drawtex at the floor covered with rolls of kerlix and abd pads on top to catch the seepage. Anesthesia was able to wean the Mando-Synephrine, we came up and extubated him successfully. We transferred him to the stretcher and in the recovery area transferred him to a floating mattress type of bed. His blood pressure remains mildly low but overall was supporting peripheral circulation adequately and he is making urine. . HEATH SESAY MD Nov 24, 2020 22:56
--- NOTE | 2020-11-24 23:25 | ROOPDOC ---
[facility] Report Of Operation Report of Operation DATE OF PROCEDURE: 10/25/20 PREPROCEDURE DIAGNOSES: necrotizing soft tissue infection of the right lower abdominal wall, right groin, medial side of suprapubic panniculus. POSTPROCEDURE DIAGNOSES: same. PROCEDURE: Wond exploration, excisional debridement and drainage of lateral thigh abscess/collection to healthy tissues, washout of wound SURGEON: Heath Scott MD IRRIGATION EQUIPMENT MECHANIC: ANESTHESIA: General Endotracheal Anesthesia. ESTIMATED BLOOD LOSS: Approximately 50 mL. COMPLICATIONS: none. 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 He is taken back to the OR for reexamination of the wound and further debridement as necessary. PROCEDURE NOTE: There is an undrained collection on the lateral upper thigh area extending the incision and debridement over that area with a deeper collection that I drained out and connected to the main incision otherwise to edges of the wound are stable with a wound getting deeper with further debridement of necroti c tissues medially. I started with a wound measuring 50 x 16 x 6 cm. I ended up with a wound measuring 57 x 23 x 6.5 cm. DESCRIPTION OF PROCEDURE: Patient was brought to the operating room, placed supine on the procedure table. Bilateral sequential compression devices placed on both lower extremities were DVT prophylaxis. He already has a Soto catheter in place. General endotracheal anesthesia was established. The original covering of the wound was removed. Again the panniculus retractors were placed on the abdomen to retract his abdominal wall away from the right side. The wound and the abdominal wall thigh and the suprapubic panniculus was prepped with Betadine and draped in a sterile fashion. We paused for a surgical timeout using both pre-incision safety checklist to verify correct patient, procedure site and additional clinical information prior to beginning the procedure. He remains on multiple IV antibiotics for his soft tissue infection. Examination most the wound appears clean and there were some leftover necrotic soft tissue especially at the medial area. Towards the groin crease where we had some problems with bruising and bleeding from the lymphatic tissues and lymph nodes there is a hardened conglomeration what I think is hardened lymph nodes. Up laterally on the lateral thigh, lower abdomen there seems to be more leftover necrotic soft tissues as well as a faint foul smell and drainage over this area. His CRP remains quite elevated. We began at a CRP of 35.9. Today his CRP is down but still markedly elevated at 25.7 cm suspecting that there are more either that tissues or undrained collection. I extended the incision laterally to open up the lateral portion of the wound and I got into a deeper pocket were I was draining this brownish thin abscess, fluid collection on his lateral thigh area but this is quite difficult to get into due to his body habitus. I just decided to use the suction device to break apart further loculations on this area. If this does not improve or may need to place him on the lateral position to get into this area of collection. I further opened up the soft tissue anteriorly to get into the pocket. Obviously necrotic soft tissues were removed. I used the pulse lavage damage prevention coordinator to get fluid into this area to further debride it with the fluid and break apart any possible loculations and continued sucking the collection with my hand-held suction. Afte r he got clear returns I returned to the other portions of the wound. The hardened conglomerate of lymphatic tissues over the medial groin area was debrided and removed with the LigaSure device. I extended my skin incision inferiorly and laterally Domínguez were still erythematous and boggy soft tissues are present. I was satisfied with how the medial panniculus look. This was not so deep. I felt I was at the level of probably slightly deeper to the Camper's fascia no deeper than the tunica vaginalis and have made some separate stab incisions more medially just to make sure that there are no undrained fluid collections there during the prior surgery. I've connected this incisions to the main wound subcutaneously and I got no further that tissues nor undrained co llections here. Up on the lower abdominal wall I further debrided the soft tissues and only minimally the skin. Overall the wound looks a lot better with only the main undrained collection found at the lateral thigh area. I then spent time using the pulse lavage to wash out the wound with about 3 L of warm saline. I checked for adequate hemostasis and we packed the wound. I use a layer of drawtex, rolls of kerlix and large abd pads to cover the wound. Dimensions of the wound at the end of the surgery measures 57 cm transversely 6.5 cm depth and 23 cm vertically. Patient remains hemodynamically stable throughout the procedure. He was promptly awakened, extubated. We transferred him to his bed and returned him to the recovery room in stable condition. HEATH SCOTT MD Nov 24, 2020 23:25
--- NOTE | 2020-11-25 00:11 | ROOPDOC ---
[facility] Report Of Operation Report of Operation DATE OF PROCEDURE: 10/31/20 PREPROCEDURE DIAGNOSES: Necrotizing soft tissue infection (20 years gangrene) right lower abdomen, right groin, right midline suprapubic panniculus. POSTPROCEDURE DIAGNOSES: Same. PROCEDURE: Washout, debridement, initial placement of wound VAC to the large open wound. SURGEON: Heath Scott MD SAFETY LEADER: Yeny Lares DO ANESTHESIA: Gen. endotracheal anesthesia. ESTIMATED BLOOD LOSS: Approximately 20 mL. COMPLICATIONS: None REMARKS: 50-year-old male on his third return to the operating room for washout of his right groin wound, debridement and possibly place a wound VAC. PROCEDURE NOTE: Stable wound with good beginning granulation tissue and minimal left overt necrotic tissue which was debrided. A wound VAC was placed. I had Dr. Lares who is our plastic surgeon evaluate the wound to explore for possible future options for the wound including possibility of skin grafting.. DESCRIPTION OF PROCEDURE: Patient was brought to the operating room. He remains on IV antibiotics. He was placed in the procedure table. Bilateral sequential compression devices placed for DVT prophylaxis. He remains to have a chronic indwelling Soto catheter. Gen. endotracheal anesthesia was established. Panniculus retractors again placed on the his upper abdomen to retract his pannus and expose the right groin wound. Previous dressings were removed. The area was then prepped and draped in the usual sterile fashion. We paused for a surgical timeout using both pre-incision safety checklist to verify correct patient, procedure site and additional clinical information prior to beginning the procedure Overall the wound looks clean. Good beginning granulation tissue at the wound bed. Only minimal drying of the soft tissue and skin on the lower portion of the wound. The previous area on the right lateral thigh where we uncovered an undrained collection last week did not reaccumulate any further fluid collection. There are small amount of dried out soft tissue then further debrided here. Beginning with measurement is 50 x 20 x 5 cm. Essential measurements are to same after this last debridement. We washed out the wound with 3 L of warm saline A wound VAC was then established by bordering the wound edges with Stomahesive paste and placing the sterile drapes around the wound. A total of 2 large foams were placed on the main wound cavity with smaller pieces of foam on the counterincisions were created that was included in the wound. The open wound over the medial panniculus was included in the wound cavity which is occupying the superior portion of the black foam. Were able to get a good seal eventually and get the wound to subcutaneously at 1 25 mmHg. Patient tolerated the procedure well. He was promptly awakened, extubated and brought to recovery room in stable condition. HEATH SCOTT MD Nov 25, 2020 00:11
--- NOTE | 2020-11-25 09:11 | CR ---
CONSULTATION DATE: 11/22/2020 Asked to consult by Dr. Lares and hospitalist service for evaluation of right groin necrotizing fasciitis and need for continued antibiotics. HISTORY OF PRESENT ILLNESS: Mr. Cordoba is a morbidly obese 50-year-old gentleman who was admitted on October 23 with necrotizing fasciitis of the right groin. The patient had 2-3 week history of lower abdominal pain, which had progressively gotten worse. He had difficulty ambulating with the walker and therefore came to the hospital. surgery by Dr. Sesay when he was noted to have necrotizing infection with an elevated white count, lactic acidosis and C-reactive protein of 25.9. Patient's necrotizing soft tissue infection involves the right groin toward the perineum/buttock area and the scrotum. He has been followed up by general surgery and plastic surgery over the past month and has been on broad-spectrum antibiotics. Initially he was treated with intravenous (IV) meropenem and vancomycin from October 23 to October 25. He went to the operating room on October 23, and wound cultures aerobically and anaerobically grew porphyromonas, anaerobic cocci, Granulicatella, and Prevotella intermedius. Blood cultures were negative times two. On October 31, he had debridement done. Culture was positive for Staphylococcus coagulase-negative yeast-like organism, and anaerobic cultures were negative. He was switched to intravenous (IV) Zosyn on October 25 and remained on Zosyn 4.5 grams every 6 hours for a total of 2 weeks until November 07. At that point, he was switched to oral doxycycline and Flagyl. MEDICAL HISTORY: Significant for: 1. Morbid obesity. 2. Obstructive sleep apnea. 3. Gastroesophageal reflux disease. 4. History of upper extremity deep venous thrombosis (DVT). 5. Osteoarthritis. 6. Onychomycosis. SURGICAL HISTORY: Left hip. ALLERGIES: SOMA. MEDICATIONS: - probiotics one tablet by mouth twice a day - Eliquis 5 mg by mouth twice a day - metronidazole 500 mg by mouth every 8 hours - ferrous sulfate 325 mg daily - Lac-Hydrin apply to feet and calluses daily - furosemide 20 mg by mouth daily - Levemir 20 units subcutaneous in the morning - Mycostatin powder to abdominal folds - Mylanta as needed - nicotine patch one patch every night - Percocet one tablet every 4 as needed - pantoprazole 40 mg by mouth daily - VAnicream to both legs twice a day - doxycycline 100 mg by mouth twice a day - vitamin B12 at 1000 mcg by mouth daily LABORATORY DATA: White count 6.2, hemoglobin 10.8, hematocrit 35.9, platelets 244, 57% neutrophils, 27% lymphocytes, 9% monocytes, 5% eosinophils, ESR 47. These labs were done on November 18. ESR is down from 79 on October 23. Sodium 139, potassium 3.9, chloride 104, bicarbonate 30, BUN 11, creatinine 1.17, glucose 112, calcium 8.1, magnesium 1.4. Bilirubin 0.3, AST 16, ALT 15, alkaline phosphatase 53. CRP 1.9, down from 35.9 on admission. Total protein 6.2, albumin 2.3. IMAGING STUDIES: CT abdomen and pelvis done on October 23 shows Toby's gangrene involving the right scrotum/inguinal region extending to the perineum, buttock, up toward the left flank with subcutaneous abscess and phlegmon. Limited study due to body habitus. Chest x-ray done on November 01 showed no focal consolidation, pneumothorax. PHYSICAL EXAMINATION: Temperature is 98.1, pulse 90, respirations 18, blood pressure 138/88, oxygen saturation 96% on room air. HEART: Normal S1, S2. No murmurs, rubs, or gallops. LUNGS: Clear. No wheezes, rales, or rhonchi. Diminished at the bases. ABDOMEN: Very large pannus. He has a Soto catheter. Penis retracted in the mons pubis. There is a large incision from the scrotum all the way to the hip bone with granulation tissue. No purulence, no redness, no tenderness. Mons pubis has multiple healed scars, suggestive of previous hydradenitis. EXTREMITIES: Trace edema with onychomycosis. NEUROLOGIC: Normal. IMPRESSION: 1. Toby's gas gangrene, and necrotizing fasciitis involving the right scrotum, perineum, and buttock, status post multiple incisions, multiple debridements of the area, and broad-spectrum antibiotics for the past 4 weeks. Patient initially was on vancomycin and imipenem for 48 hours followed by Zosyn for 14 days and currently on doxycycline and Flagyl. Wound looks much better no evidence of infection. The patient was seen in the presence of Dr. Lares from plastic surgery, who agrees that there is no residual infection and agrees on discontinuing antibiotics. The patient is ready for transfer to care home in [place], [place], at [facility] and would recommend discontinuing antibiotics of Flagyl and doxycycline. Continue probiotics one tablet twice a day to decrease the risk of Clostridium (C) difficile. Thank you for the consultation. JORDANA
== END 2020-11-22 15:05 | disposition home health service (06) | DRG 720 ==
LOC: M ED 01:00 → M ED INP 03:33 → M MSPAV 10:12 → M ICU 10-24 00:50 → M MSPAV 10-25 15:46 → M MS5PR 10-27 15:01
PROVIDERS: ADMIT Internal Medicine; ATTEND Internal Medicine
PROC: 0JBC0ZZ Excision of Pelvic Region Subcutaneous Tissue and Fascia, Open Approach (ICD-10-PCS; principal; 2020-10-23 19:00)
PROC: 0JBL0ZZ Excision of Right Upper Leg Subcutaneous Tissue and Fascia, Open Approach (ICD-10-PCS; 2020-10-25)
PROC: 0JBC0ZZ Excision of Pelvic Region Subcutaneous Tissue and Fascia, Open Approach (ICD-10-PCS; 2020-10-31)
PROC: 0JBL0ZZ Excision of Right Upper Leg Subcutaneous Tissue and Fascia, Open Approach (ICD-10-PCS; 2020-10-31)
DX: A41.9 Sepsis, unspecified organism (principal); M72.6 Necrotizing fasciitis; N17.9 Acute kidney failure, unspecified; I50.32 Chronic diastolic (congestive) heart failure; K31.84 Gastroparesis; E87.1 Hypo-osmolality and hyponatremia; E11.43 Type 2 diabetes mellitus with diabetic autonomic (poly)neuropathy; L02.214 Cutaneous abscess of groin; Z68.45 Body mass index [BMI] 70 or greater, adult; E66.2 Morbid (severe) obesity with alveolar hypoventilation; E83.39 Other disorders of phosphorus metabolism; N39.0 Urinary tract infection, site not specified; N49.3 Fournier gangrene; K21.9 Gastro-esophageal reflux disease without esophagitis; G47.33 Obstructive sleep apnea (adult) (pediatric); F17.200 Nicotine dependence, unspecified, uncomplicated; E53.8 Deficiency of other specified B group vitamins; D50.9 Iron deficiency anemia, unspecified; Z79.899 Other long term (current) drug therapy; Z79.4 Long term (current) use of insulin; Z88.8 Allergy status to other drugs, medicaments and biological substances; Z79.01 Long term (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s; Z86.718 Personal history of other venous thrombosis and embolism; K91.89 Other postprocedural complications and disorders of digestive system

== ENCOUNTER 2021-04-05 22:25 | Inpatient (IN) | payer OTHER ==
[~2021-04-05] VITALS: Ht 185.4 cm; Wt 259.7 kg
[~2021-04-05 22:25] MED LIST changes: +ACET1TAB55 PO; +ELIQ5TAB PO; +ERGO500029; +FERR325T18 PO; +INSUDET SC; +INSUHUMDS SC; +LACH12LO TOP; +MYLASSUD PO; +NICO21PAT TD; +NYST10006 TOP; +OMEP-221 PO; +PANT40TA29 PO; +VANI1CRE5 TOP; -VITA50005; +VITA500T40 PO
[2021-04-05] MEDS ORDERED: PRIL20TA2 PO (22:50)
[2021-04-06 02:31] LABS: BASO % 0.3 % (0.0-1.0); EOS # 0.1 10^3/uL (0.0-0.5); EOS % 0.5 % (0.0-3.0); HEMATOCRIT 32.8 % (42.0-52.0); HEMOGLOBIN 9.5 g/dl (13.5-17.5); LYMPH # 1.4 10^3/uL (1.5-5.0); LYMPH % 9.4 % (24.0-44.0); MEAN CORPUSCULAR HEMOGLOBIN 23.6 pg (27.0-33.0); MEAN CORPUSCULAR VOLUME 81.6 fl (80.0-96.0); MONO # 0.9 10^3/uL (0.0-0.8); MONO % 6.2 % (2.0-8.0); NEUTROPHILS # 12.4 10^3/uL (1.5-8.5); NEUTROPHILS % 82.9 % (36.0-66.0); PLATELET COUNT, AUTOMATED 245 10^3/uL (150-450); RED BLOOD COUNT 4.02 10^6/uL (4.30-6.10); WHITE BLOOD COUNT 14.9 10^3/uL (4.0-10.0)
[2021-04-06 02:51] LABS: ERYTHROCYTE SEDIMENTATION RATE 82 mm/hr (0-15)
[2021-04-06 03:04] LABS: BLOOD UREA NITROGEN 14 MG/DL (7-18); CALCIUM LEVEL 7.8 MG/DL (8.5-10.1); CARBON DIOXIDE LEVEL 27 MEQ/L (21-32); CHLORIDE LEVEL 105 MEQ/L (98-107); CREATININE FOR GFR 1.28 MG/DL (0.70-1.30); GLOMERULAR FILTRATION RATE > 60.0 (>60); GLUCOSE, FASTING 148 MG/DL (70-100); POTASSIUM SERUM 3.9 MEQ/L (3.5-5.1); SODIUM LEVEL 137 MEQ/L (136-145)
[2021-04-06 03:09] LABS: RSV AMPLIFICATION NEGATIVE (NEGATIVE)
--- NOTE | 2021-04-06 03:41 | REPVR ---
PROCEDURE INFORMATION: Exam: US Duplex Right Lower Extremity Veins, Limited Exam date and time: 04/06/21 (2:31am) Age: 50 years old Clinical indication: Bilateral lymphedema. Possible DVT. TECHNIQUE: Imaging protocol: Real-time Duplex ultrasound of the Right Lower Extremity with 2-D dewitt scale, color Doppler flow and spectral waveform analysis with image documentation. Limited exam was focused on the right lower extremity veins. COMPARISON: US Duplex, Ext lower veins, bilateral of 10/16/20 FINDINGS: Right deep veins: Very limited study due to patient body habitus and edema. The mid and distal right SFV and the right popliteal vein are visualized and appear patent. Other deep veins of the right leg are not visualized. Right superficial veins: Not adequately visualized. IMPRESSION: Incomplete study due to patient body habitus and leg edema. The mid and distal right SFV and the right popliteal vein appear patent. Other deep veins of the right leg are not adequately visualized. Electronically signed by: Conchis Fernandez On 04/06/2021 03:40:45 AM
[2021-04-06] MEDS ORDERED: HOME MED LIST COMPLETE! XX SCH (04:25)
--- NOTE | 2021-04-06 04:27 | HPEPDOC ---
[facility] Medical History & Physical Date of Admission Apr 06, 2021 Date of Service: Apr 06, 2021 History and Physical CHIEF COMPLAINT: R leg pain and swelling HISTORY OF PRESENT ILLNESS: 50 yo M with a PMHx of Toby's gangre ne/panniculitis (prolonged admission in 10/2020), ARJUN, Class 3 obesity, UE DVT, PE, presented to ER with pain, swelling and erythema of R leg, extending to the R knee and thigh. Pain is 7/10, unable to bear weight. Found to mildly tachycardic, with low grade tempt and leukocytosis with elevated CRP. Patient will be admitted for the management of sepsis 2/2 RLE cellulitis. Started on IV ceftriaxone and vancomycin. PAST MEDICAL HISTORY: GERD Hx of UE DVT on xarelto ARJUN CPAP 10 Class 3 obesity BMI 72.7 Hx of cellulitis Left hip repair Hx of panniculitis Hx of Toby's gangrene PAST SURGICAL HISTORY: washout debridement of groin area for treatment of Toby's gangrene 10/2020 SOCIAL HISTORY: smoker former etoh use disorder FAMILY HISTORY: reviewed with patient, no pertinent history provided. ALLERGIES: Please see below. REVIEW OF SYSTEMS: 10 point ROS was conducted relevant findings are noted in the HPI HOME MEDICATIONS: Please see below. PHYSICAL EXAMINATION: VITAL SIGNS: please see below General: obese male HEENT: PERRLA, EOMI, sclerae clear Neck: supple, normal ROM, no JVD Respiratory: lungs CTAB, no wheeze, no rales, no crackles CVS: RRR, normal S1, S2, no murmurs Abdo: soft, no masses, no hepatosplenomegaly, BS+, no rebound tenderness Extremities: R knee skin swollen, erythematou, pain to palpation overlying patellar tendon. L leg in tubigrip, 5 x 3.5 cm venous ulcer on anterior pretibial area. MSK: no joint deformities, normal ROM Neuro: no focal neuro deficits, moving all 4 extremities, CN2-12 intact. Strength 5/5 in all 4 extremities. No nystagmus. Psych: calm, cooperative, AAO x 3 LABORATORY DATA: See below. IMAGING: Duplex of RLE (04/06/21): FINDINGS: Right deep veins: Very limited study due to patient body habitus and edema. The mid and distal right SFV and the right popliteal vein are visualized and appear patent. Other deep veins of the right leg are not visualized. Right superficial veins: Not adequately visualized. IMPRESSION: Incomplete study due to patient body habitus and leg edema. The mid and distal right SFV and the right popliteal vein appear patent. Other deep veins of the right leg are not adequately visualized. MICROBIOLOGY: Please see below. ASSESSMENT: 50 yo M with a PMHx of Toby's gangrene/panniculitis (prolonged admission in 10/2020), ARJUN, Class 3 obesity, UE DVT, PE, presented to ER with pain, swelling and erythema of R leg, extending to the R knee and thigh. Pain is 7/10, unable to bear weight. Found to mildly tachycardic, with low grade tempt and leukocytosis with elevated CRP. Patient will be admitted for the management of sepsis 2/2 RLE cellulitis. Started on IV ceftriaxone and vancomycin. . PLAN: #Sepsis 2/2 RLE cellulitis - elevated WBC, inflammatory markers - follows with Dr. Amezquita for wound care - started on IV vancomycin, ceftriaxone - f/w blood cultures - will trend inflammatory markers. - venous duplex poo study, cannot r/o DVT - presently on eliquis for prior LLE DVT and PE. #R knee pain - likely cellulitis - will obtain XR to evaluate for fx - if pain is not improving with abx, would consider joint infection vs bursitis, in which case orthopedic consultation may be warranted. #Groin wounds - patient had prolonged admission for Toby's gangrene in 10/2020, requiring substantial debridement in OR - patient currently being treated by Dr. Amezquita in clinic - reviewed Dr. Amezquita's last clinic note from 04/03/21 - wash wound with vashe - dress with endorform antimicrobial tissue matrix and hydrofera blue classic - cover with optilock, apply kerlex and tubigrip stocking - would consider Dr. Amezquita consult on Wednesday if patient is still admitted. #L lower extremity chronic venous stasis ulcer - reviewed Dr. Amezquita's last clinic note from 04/03/21 - wash wound with vashe #Hx of LLE DVT and PE - presently anticoagulated with eliquis. #ARJUN - on CPAP 10 mm H20 #Class 3 obesity - complicates care #GERD - PPI DVT ppx: heparin. Dispo: pending clinical improvement. Vital Signs Vital Signs Date Time Temp Pulse Resp B/P (MAP) Pulse Ox O2 Delivery O2 Flow Rate FiO2 04/06/21 03:15 104 20 142/64 (90) 94 Room Air 04/06/21 01:57 99.4 Laboratory Data Labs 24H Laboratory Tests 2 04/06/21 02:21: Immature Granulocyte % (Auto) 0.7, Neutrophils (%) (Auto) 82.9H, Lymphocytes (%) (Auto) 9.4L, Monocytes (%) (Auto) 6.2, Eosinophils (%) (Auto) 0.5, Basophils (%) (Auto) 0.3, Neutrophils # (Auto) 12.4H, Lymphocytes # (Auto) 1.4L, Monocytes # (Auto) 0.9H, Eosinophils # (Auto) 0.1, Basophils # (Auto) 0.0, Nucleated Red Blood Cells % (auto) 0.0, Erythrocyte Sedimentation Rate 82H, Anion Gap 5L, Glomerular Filtration Rate > 60.0, Lactic Acid Level 1.4, Calcium Level 7.8L, C- Reactive Protein, Quantitative 25.70H, Coronavirus (COVID-19)(PCR) NEGATIVE, Influenza Type A (RT-PCR) NEGATIVE, Influenza Type B (RT-PCR) NEGATIVE, Respiratory Syncytial Virus (PCR) NEGATIVE CBC/BMP Laboratory Tests 04/06/21 02:21 Microbiology Microbiology 04/06/21 Blood Culture, Received Pending 04/06/21 Blood Culture, Received Pending Home Medications Scheduled Apixaban (Eliquis) 5 Mg Tablet, 5 MG PO BID Furosemide (Lasix) 20 Mg Tablet, 20 MG PO DAILY Hydrocodone/Acetaminophen (Hydrocodone-Acetamin 7.5-325) 1 Each Tablet, 1 TAB PO Q6H Omeprazole (Omeprazole) 40 Mg Capsule.dr, 40 MG PO QHS Scheduled PRN Acetaminophen (Acetaminophen) 325 Mg Tablet, 650 MG PO Q6HP PRN for FEVER Albuterol Sulfate (Proair Hfa) 8.5 Gm Hfa.aer.ad, 2 PUFF INH Q4H PRN for SHORTNESS OF BREATH Allergies Coded Allergies: carisoprodol (Verified Allergy, Intermediate, rash, 01/23/20) DAGOBERTO HENDRICKSON MD Apr 06, 2021 04:26
[2021-04-06] MEDS ORDERED: HEPARIN SOD (PORCINE) 5000UNITS/ML 1ML VIAL/SYRINGE SC SCH (04:30)
[2021-04-06] MEDS ORDERED: ACETAMINOPHEN TAB 650MG DOSE (2X325MG) PO PRN (04:30)
[2021-04-06] MEDS ORDERED: MAALOX 30 ML SUSP *UDC PO PRN (04:30)
[2021-04-06] MEDS ORDERED: MOM 30ML SUSPENSION UDC PO PRN (04:30)
[2021-04-06] MEDS ORDERED: ISOVUE-370 76% 100ML VIAL As Ordered ONE (05:46)
[2021-04-06] MEDS ORDERED: ALBUTEROL 90 MCG/ACT 8GM HFA INHALER INH PRN (05:50)
[2021-04-06] MEDS ORDERED: NS 1,000 ML IV ONE (06:00)
[2021-04-06] MEDS: cefTRIAXone SOD 1 GM in D5W MINI-BAG PLUS 50 ML IV SCH (06:01)
[2021-04-06] MEDS: ANEXSIA, NORCO 7.5MG/325MG TABLET(HYDROCODONE/APAP) PO SCH ×4 (06:29→23:27)
[2021-04-06] MEDS ORDERED: VANCOMYCIN HCL 1,000 MG, VIAL MATE ADAPTER 1 EACH in NS 250 ML IV ONE ×2 (08:00→09:00)
--- NOTE | 2021-04-06 08:05 | REP ---
INDICATION: pain COMPARISON: None. TECHNIQUE: There are four views: FINDINGS: There is thickening and increased density in the suprapatellar tendon, possibly posttraumatic. No effusion is identified. There is moderate osteoarthritis in the medial and patellofemoral compartments. There is increased density in the medial proximal gastrocnemius, possibly posttraumatic. There is no fracture or dislocation. There are no calcifications or foreign bodies. IMPRESSION: Increased density in the suprapatellar tendon in the proximal medial gastrocnemius, possibly posttraumatic. Moderate osteoarthritis in the medial and patellofemoral compartments. There is no effusion. <Electronically signed by Oziel Williamson > 04/06/21 0821
[2021-04-06] MEDS: DOCUSATE SODIUM 100MG CAPSULE PO SCH ×2 (08:40→22:22)
[2021-04-06] MEDS: FUROSEMIDE 20 MG TAB PO SCH (08:41)
[2021-04-06] MEDS: APIXABAN 5 MG TAB (ELIQUIS) PO SCH ×2 (08:41→22:22)
[2021-04-06 09:11] LABS: BASO % 0.3 % (0.0-1.0); EOS # 0.1 10^3/uL (0.0-0.5); EOS % 0.5 % (0.0-3.0); HEMATOCRIT 30.6 % (42.0-52.0); HEMOGLOBIN 8.9 g/dl (13.5-17.5); LYMPH # 1.2 10^3/uL (1.5-5.0); LYMPH % 8.5 % (24.0-44.0); MEAN CORPUSCULAR HEMOGLOBIN 23.7 pg (27.0-33.0); MEAN CORPUSCULAR HGB CONC 29.1 g/dl (32.0-36.5); MEAN CORPUSCULAR VOLUME 81.4 fl (80.0-96.0); MONO # 0.9 10^3/uL (0.0-0.8); MONO % 6.4 % (2.0-8.0); NEUTROPHILS # 12.2 10^3/uL (1.5-8.5); NEUTROPHILS % 83.5 % (36.0-66.0); PLATELET COUNT, AUTOMATED 239 10^3/uL (150-450); RED BLOOD COUNT 3.76 10^6/uL (4.30-6.10); WHITE BLOOD COUNT 14.6 10^3/uL (4.0-10.0)
[2021-04-06 09:14] LABS: INR 1.39; PROTHROMBIN TIME 17.5 SECONDS (12.7-14.5)
[2021-04-06 09:15] LABS: PARTIAL THROMBOPLASTIN TIME 37.7 SECONDS (25.9-37.0)
[2021-04-06 09:30] LABS: ALBUMIN 2.3 GM/DL (3.2-5.2); ALT/SGPT 9 U/L (12-78); BILIRUBIN,TOTAL 0.5 MG/DL (0.2-1.0); BLOOD UREA NITROGEN 13 MG/DL (7-18); CALCIUM LEVEL 8.1 MG/DL (8.5-10.1); CARBON DIOXIDE LEVEL 27 MEQ/L (21-32); CHLORIDE LEVEL 106 MEQ/L (98-107); CREATININE FOR GFR 1.07 MG/DL (0.70-1.30); GLOMERULAR FILTRATION RATE > 60.0 (>60); GLUCOSE, FASTING 137 MG/DL (70-100); MAGNESIUM LEVEL 1.9 MG/DL (1.8-2.4); POTASSIUM SERUM 3.9 MEQ/L (3.5-5.1); SODIUM LEVEL 139 MEQ/L (136-145)
[2021-04-06 09:35] LABS: ERYTHROCYTE SEDIMENTATION RATE 83 mm/hr (0-15)
[2021-04-06 14:45] VITALS: BP 128/66
--- NOTE | 2021-04-06 16:49 | IPNPDOC ---
Text Note Date of Service The patient was seen on 04/06/21. NOTE Subjective: 50-year-old male with past medical history of Toby's gangrene/ panniculitis obstructive sleep apnea, class III obesity, upper extremity DVT, PE, who presented to the emergency department with pain, swelling, and erythema of his right leg extending to the right medial thigh. Pain was 7/10. Patient states that the pain was getting worse. Patient was admitted for management of sepsis secondary to cellulitis. Patient was started on IV ceftriaxone and vancomycin. Review of systems: General: Patient denies fevers HEENT: Patient denies headaches Cardiovascular: Patient denies chest pain Respiratory: Patient denies shortness of breath, cough GI: Patient denies abdominal pain, nausea, vomiting, diarrhea : Patient denies increased frequency or pain with urination Extremities: Patient reports pain in his right knee. Physical exam: Vitals: See below General: Alert and oriented morbidly obese male patient who was uncomfortable appearing in bed. Patient was trying to assess shift his position around to get more comfortable. Patient did not appear to be in any acute distress. HEENT: Normocephalic, atraumatic, moist mucous membranes. Neck: No lymphadenopathy or thyromegaly Cardiac: Regular rate and rhythm, no murmurs, normal S1, normal S2 Pulm: Clear to auscultation bilaterally. No wheezes, rhonchi, rales Abd: Nondistended, nontender to palpation, normal bowel sounds Ext: Grossly edematous with swelling and heat coming from the skin overlying the right knee. There was pain to palpation overlying this. Left leg had Tubigrip over her with a 5 x 3.5 cm venous ulcer on the anterior pretibial area. Labs: See below Imaging: X-ray of the right knee performed on 04/06/2021 is reported to show increased density in the suprapatellar tendon in the proximal medial gastrocnemius, positive posttraumatic. Moderate osteoarthritis in the medial and patellofemoral compartments. No effusion. Assessment/plan: 50-year-old male who presented to the hospital with pain and swelling around his right knee who was diagnosed with sepsis secondary to cellulitis 1. Sepsis secondary to right lower extremity cellulitis. Patient had an elevated white blood cell count, tachycardia and a respiratory rate of 20 when he came in. Patient will continue with Rocephin and vancomycin. We will follow with the patient's blood cultures. He follows with Dr. Amezquita for wound care. 2. Right knee pain. Likely secondary to cellulitis. X-ray was performed and do not show any fractures.. We will continue to monitor. 3. Groin wounds. Patient had a prolonged admission for Toby's gangrene in October 2020 requiring substantial debridement in the operating room. Patient follows with Dr. Amezquita. Reviewed Dr. Amezquita's last clinical note and wound care has been ordered. Consult for with Dr. Amezquita may be appropriate tomorrow depending on how the patient is doing. 4. Left lower extremity chronic venous stasis ulcer. Wash with stage. 5. History of left lower extremity DVT and PE. Presently anticoagulated with Eliquis. 6. Obstructive sleep apnea. I asked the patient to try and get someone to drop off his home CPAP. 7. Class III obesity which is complicating the patient's care. DVT Prophylaxis: Anticoagulated with Eliquis Disposition: Pending clinical improvement VSNatali, I+O VSNatali, I+O Laboratory Tests 04/06/21 02:21 04/06/21 08:37 Vital Signs Date Time Temp Pulse Resp B/P (MAP) Pulse Ox O2 Delivery O2 Flow Rate FiO2 04/06/21 14:45 98.4 95 18 128/66 (86) 97 Room Air 04/06/21 14:27 2.0 MARY WHEELER DO Apr 06, 2021 16:49
[2021-04-06] MEDS: VANCOMYCIN HCL 1,000 MG, VIAL MATE ADAPTER 1 EACH in NS 250 ML IV SCH ×2 (17:21→23:28)
[2021-04-06 22:00] VITALS: BP 136/71
[2021-04-06] MEDS: ACETAMINOPHEN TAB 650MG DOSE (2X325MG) PO PRN (22:22)
[2021-04-07] MEDS: VANCOMYCIN HCL 1,000 MG, VIAL MATE ADAPTER 1 EACH in NS 250 ML IV SCH (04:58)
[2021-04-07] MEDS: ANEXSIA, NORCO 7.5MG/325MG TABLET(HYDROCODONE/APAP) PO SCH ×3 (06:00→11:45)
[2021-04-07] MEDS: cefTRIAXone SOD 1 GM in D5W MINI-BAG PLUS 50 ML IV SCH (06:38)
[2021-04-07] MEDS: DOCUSATE SODIUM 100MG CAPSULE PO SCH (08:41)
[2021-04-07] MEDS: APIXABAN 5 MG TAB (ELIQUIS) PO SCH (08:41)
[2021-04-07] MEDS: FUROSEMIDE 20 MG TAB PO SCH (08:41)
[2021-04-07] MEDS: ACETAMINOPHEN TAB 650MG DOSE (2X325MG) PO PRN (08:46)
[2021-04-07] MEDS ORDERED: BACTRIM 160MG/800MG DS TAB PO SCH (10:10)
[2021-04-07] MEDS ORDERED: BACTDSTA PO (10:12)
--- NOTE | 2021-04-07 12:09 | DS.PDOC ---
Discharge Summary General Date of Admission Apr 06, 2021 at 04:27 Date of Discharge 04/07/2021 Attending Physician: MARY WHEELER DO Discharge Summary PROCEDURES PERFORMED DURING STAY: None. ADMITTING DIAGNOSES: 1. Sepsis secondary to right lower extremity cellulitis. 2. Right knee pain 3. Groin wounds 4. Left lower extremity chronic venous stasis ulcer 5. History of left lower extremity DVT and PE 6. Obstructive sleep apnea 7. Class III obesity 8. GERD DISCHARGE DIAGNOSES: 1. Sepsis secondary to right lower extremity cellulitis, sepsis resolved, cellulitis improved 2. Right knee pain, improved 3. Groin wounds 4. Left lower extremity chronic venous stasis ulcer 5. History of left lower extremity DVT and PE 6. Shortness evaluated 7. Class III obesity 8. GERD COMPLICATIONS/CHIEF COMPLAINT: Cellulitis Of Right Leg. HISTORY OF PRESENT ILLNESS: Patient is a 50-year-old male who presented to the emergency department with pain, swelling, and erythema of the right leg extending to the right knee and thigh. Patient described the pain as 7/10 was unable to bear weight. Patient was found to be mildly tachycardic with a low- grade temperature and leukocytosis with elevated CRP. Patient was admitted for management of sepsis secondary to right lower extremity cellulitis. Patient did have an extended admission in October 2020 for Toby's gangrene/panniculitis. Patient was started on IV vancomycin and ceftriaxone.. HOSPITAL COURSE: Patient did well throughout his hospitalization. Patient's leg was still very warm and tender to the touch on day one of his hospitalization. Patient was having some difficulty ambulating on the first day of hos pitalization. Patient remained in the hospital overnight from 04/06/2021 to 04/07/2021. Patient was feeling much better on the morning of 04/07/2021. The warmth and tenderness had improved to his right knee. Patient was able to bear weight on his knee and was able to walk around the room under his own power. Patient's leukocytosis was about the same. Patient was not febrile. The d ecision was made to transition the patient from IV vancomycin to oral Bactrim and the patient was discharged home on 04/07/2021. DISCHARGE MEDICATIONS: Please see below. ALLERGIES: Please see below. PHYSICAL EXAMINATION ON DISCHARGE: VITAL SIGNS: Please see below. General: Alert and oriented obese male patient who was laying in bed when I walked in the room. Patient not appear to be in any acute distress. HEENT: Normocephalic, atraumatic, moist mucous membranes. Neck: No lymphadenopathy or thyromegaly Cardiac: Regular rate and rhythm, no murmurs, normal S1, normal S2 Pulm: Clear to auscultation bilaterally. No wheezes, rhonchi, rales Abd: Nondistended, nontender to palpation, normal bowel sounds, obese Ext: No edema bilateral lower extremities, warmth and swelling around the right knee has improved and is now about the same temperature as the surrounding skin. Patient reports less pain to palpation of this area and is able to bend his knee under his own power Skin: Patient's left lower extremity is wrapped up with Tubigrip with venous stasis ulcer bandaged with no purulent drainage or bleeding on the outside of the dressing LABORATORY DATA: Please see below. IMAGING: Duplex lower extremity ultrasound of the right leg performed on 04/06/2021 was aborted show incomplete study due to patient body habitus and leg edema. The mid and distal right SFV and the right popliteal vein appear patent. Other deep veins of the right leg not adequately visualized. X-ray of the right knee performed on 04/06/2021 was reported to show increased density in the suprapatellar tendon in the proximal medial gastrocnemius, possibly posttraumatic. Moderate osteoarthritis in the medial patellofemoral compartments. No effusion. PROGNOSIS: Fair ACTIVITY: As tolerated. DIET: Consistent carbohydrate DISCHARGE PLAN: Discharge home DISPOSITION: . DISCHARGE INSTRUCTIONS: 1. Follow-up with your primary care provider within 3 to 5 days of discharge. 2. Continue to follow-up with Dr. Amezquita for wound care 3. Start taking Bactrim 1 tablet twice a day for the next 7 days 4. Return to the emergency department if symptoms return or worsen ITEMS TO FOLLOWUP ON ON OUTPATIENT: 1. Follow-up wound care and cellulitis. DISCHARGE CONDITION: Stable. TIME SPENT ON DISCHARGE: 35 minutes. Vital Signs/I&Os Vital Signs Date Time Temp Pulse Resp B/P (MAP) Pulse Ox O2 Delivery O2 Flow Rate FiO2 04/07/21 11:45 18 04/06/21 23:57 Room Air 04/06/21 22:00 98.8 97 136/71 (92) 95 04/06/21 14:27 2.0 I&O- Last 24 Hours up to 6 AM 04/07/21 06:00 Intake Total 1140 ml Output Total 0 ml Balance 1140 ml Laboratory Data Labs 24H Laboratory Tests 2 04/07/21 05:58: C-Reactive Protein, Quantitative 21.20H 04/07/21 09:54: Vancomycin Level Trough 15.3 Microbiology Microbiology 04/06/21 Blood Culture - Preliminary, Resulted No growth after 24 hours . All specim... 04/06/21 Blood Culture - Preliminary, Resulted No growth after 24 hours . All specim... Discharge Medications Scheduled Apixaban (Eliquis) 5 Mg Tablet, 5 MG PO BID, (Reported) Furosemide (Lasix) 20 Mg Tablet, 20 MG PO DAILY, (Reported) Hydrocodone/Acetaminophen (Hydrocodone-Acetamin 7.5-325) 1 Each Tablet, 1 TAB PO Q6H, (Reported) Omeprazole (Omeprazole) 40 Mg Capsule.dr, 40 MG PO QHS, (Reported) Sulfamethoxazole/Trimethoprim (Sulfamethoxazole-Tmp Ds Tablet) 1 Each Tablet, 1 TAB PO BID Scheduled PRN Acetaminophen (Acetaminophen) 325 Mg Tablet, 650 MG PO Q6HP PRN for FEVER Albuterol Sulfate (Proair Hfa) 8.5 Gm Hfa.aer.ad, 2 PUFF INH Q4H PRN for SHORTNESS OF BREATH, (Reported) Allergies Coded Allergies: carisoprodol (Verified Allergy, Intermediate, rash, 01/23/20) MARY WHEELER DO Apr 07, 2021 12:09
== END 2021-04-07 16:25 | disposition home health service (06) | DRG 720 ==
LOC: M ED 22:25 → EEVIPCON 04-06 04:27 → M ED INP 04-06 04:27 → ENRESERV 04-06 12:35 → M MS5PR 04-06 14:45
PROVIDERS: ADMIT Family Medicine; ATTEND Family Medicine
DX: A41.9 Sepsis, unspecified organism (principal); Z68.45 Body mass index [BMI] 70 or greater, adult; L03.115 Cellulitis of right lower limb; G47.33 Obstructive sleep apnea (adult) (pediatric); K21.9 Gastro-esophageal reflux disease without esophagitis; E66.9 Obesity, unspecified; Z86.711 Personal history of pulmonary embolism; Z86.718 Personal history of other venous thrombosis and embolism; L03.114 Cellulitis of left upper limb; Z79.899 Other long term (current) drug therapy; Z88.8 Allergy status to other drugs, medicaments and biological substances; I87.2 Venous insufficiency (chronic) (peripheral); Z79.01 Long term (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s

== ENCOUNTER → 2021-11-26 | Outpatient (CLI) | payer OTHER ==
[~2021-11-26] MED LIST changes: +BACTDSTA PO; +BUPIVACAINE HCL 0.5% 30ML VIAL As Ordered ONE; -DOXY150C PO; +DOXY150C3 PO; +ISOVUE-300 61% 50ML VIAL As Ordered ONE; +LIDOCAINE 1% MDV 20ML VIAL As Ordered ONE; -OMEP-221; -OMEP-221 PO; +OMEP40CA5; +OMEP40CA5 PO; +PRIL20TA2 PO; +methylPREDNISolone 80MG/ML SUSP 1ML VIAL (J1040) As Ordered ONE
== END ==
LOC: M RADPRO 12:22
PROVIDERS: ATTEND Orthopaedic Surgery Adult Reconstructive Orthopaedic Surgery
DX: M25.551 Pain in right hip (principal); Z53.9 Procedure and treatment not carried out, unspecified reason

== ENCOUNTER 2021-12-20 23:44 | Inpatient (IN) | payer OTHER ==
[~2021-12-20] VITALS: Ht 188 cm; Wt 225.0 kg
[~2021-12-20 23:44] MED LIST changes: -BUPIVACAINE HCL 0.5% 30ML VIAL As Ordered ONE; -ISOVUE-300 61% 50ML VIAL As Ordered ONE; -LIDOCAINE 1% MDV 20ML VIAL As Ordered ONE; -methylPREDNISolone 80MG/ML SUSP 1ML VIAL (J1040) As Ordered ONE
[2021-12-21 00:31] LABS: BASO % 0.3 % (0.0-1.0); EOS % 0.4 % (0.0-3.0); HEMATOCRIT 31.8 % (42.0-52.0); HEMOGLOBIN 9.1 g/dl (13.5-17.5); LYMPH # 1.3 10^3/uL (1.5-5.0); LYMPH % 11.9 % (24.0-44.0); MEAN CORPUSCULAR HEMOGLOBIN 21.9 pg (27.0-33.0); MEAN CORPUSCULAR HGB CONC 28.6 g/dl (32.0-36.5); MEAN CORPUSCULAR VOLUME 76.4 fl (80.0-96.0); MONO # 0.6 10^3/uL (0.0-0.8); MONO % 5.9 % (2.0-8.0); NEUTROPHILS # 8.6 10^3/uL (1.5-8.5); NEUTROPHILS % 80.9 % (36.0-66.0); PLATELET COUNT, AUTOMATED 206 10^3/uL (150-450); RED BLOOD COUNT 4.16 10^6/uL (4.30-6.10); WHITE BLOOD COUNT 10.6 10^3/uL (4.0-10.0)
[2021-12-21 01:15] LABS: ALBUMIN 2.4 GM/DL (3.2-5.2); BILIRUBIN,TOTAL 0.4 MG/DL (0.2-1.0); CREATININE FOR GFR 1.37 MG/DL (0.70-1.30); GLOMERULAR FILTRATION RATE 58.8 (>60); POTASSIUM SERUM 3.5 MEQ/L (3.5-5.1); THYROID STIMULATING HORMONE 2.34 uIU/ML (0.358-3.740); TOTAL PROTEIN 7.8 GM/DL (6.4-8.2)
[2021-12-21] MEDS ORDERED: VANCOMYCIN HCL 1,500 MG in IV FLUID PLACE HOLDER 1 EA IV ONE (04:10)
[2021-12-21] MEDS ORDERED: PIPERACILLIN/TAZOBACTAM SOD 4.5 GM in D5W MINI-BAG PLUS 50 ML IV ONE (04:10)
[2021-12-21] MEDS ORDERED: HOME MED LIST COMPLETE! XX SCH (04:25)
[2021-12-21] MEDS ORDERED: VANCOMYCIN HCL 1,000 MG, VIAL MATE ADAPTER 1 EACH in NS 250 ML IV ONE ×6 (05:00)
[2021-12-21] MEDS ORDERED: ANEXSIA, NORCO 7.5MG/325MG TABLET(HYDROCODONE/APAP) PO PRN (05:05)
[2021-12-21] MEDS ORDERED: ACETAMINOPHEN TAB 650MG DOSE (2X325MG) PO PRN (05:05)
[2021-12-21] MEDS ORDERED: IPRATROPIUM 0.5MG/ALBUTEROL 2.5MG INH SOL UD 3ML (DUONEB) NEB PRN (05:05)
[2021-12-21] MEDS ORDERED: NS 1,000 ML IV SCH (05:05)
[2021-12-21 06:45] VITALS: BP 118/80
[2021-12-21 07:45] LABS: BASO % 0.3 % (0.0-1.0); EOS # 0.1 10^3/uL (0.0-0.5); EOS % 0.8 % (0.0-3.0); HEMATOCRIT 31.7 % (42.0-52.0); LYMPH # 1.1 10^3/uL (1.5-5.0); LYMPH % 11.9 % (24.0-44.0); MEAN CORPUSCULAR HEMOGLOBIN 21.8 pg (27.0-33.0); MEAN CORPUSCULAR HGB CONC 28.4 g/dl (32.0-36.5); MEAN CORPUSCULAR VOLUME 76.9 fl (80.0-96.0); MONO # 0.7 10^3/uL (0.0-0.8); MONO % 7.7 % (2.0-8.0); NEUTROPHILS # 7.1 10^3/uL (1.5-8.5); NEUTROPHILS % 78.7 % (36.0-66.0); PLATELET COUNT, AUTOMATED 210 10^3/uL (150-450); RED BLOOD COUNT 4.12 10^6/uL (4.30-6.10)
[2021-12-21 07:55] LABS: INR 1.17; PROTHROMBIN TIME 15.3 SECONDS (12.7-14.5)
[2021-12-21 07:56] LABS: PARTIAL THROMBOPLASTIN TIME 35.3 SECONDS (25.9-37.0)
[2021-12-21 08:03] LABS: ERYTHROCYTE SEDIMENTATION RATE 76 mm/hr (0-15)
[2021-12-21] MEDS: FLUTICASONE PROP 0.05% NASAL SPRAY 16 GM (FLONASE) NARES SCH ×2 (10:00→20:44)
[2021-12-21] MEDS: APIXABAN 5 MG TAB (ELIQUIS) PO SCH ×2 (10:01→20:44)
[2021-12-21] MEDS: PIPERACILLIN/TAZOBACTAM SOD 3.375 GM in D5W MINI-BAG PLUS 50 ML IV SCH ×3 (10:01→23:34)
[2021-12-21] MEDS: LACTOBACILLUS ACIDOPHILUS CAP (BACID) PO SCH (10:01)
[2021-12-21] MEDS: VANCOMYCIN HCL 1,000 MG, VIAL MATE ADAPTER 1 EACH in NS 250 ML IV SCH ×2 (12:31→20:43)
[2021-12-21 13:43] LABS: BLOOD UREA NITROGEN 16 MG/DL (7-18); CALCIUM LEVEL 8.2 MG/DL (8.5-10.1); CARBON DIOXIDE LEVEL 28 MEQ/L (21-32); CHLORIDE LEVEL 108 MEQ/L (98-107); CREATININE FOR GFR 1.14 MG/DL (0.70-1.30); FERRITIN 109 NG/ML (26-388); GLOMERULAR FILTRATION RATE > 60.0 (>60); GLUCOSE, FASTING 137 MG/DL (70-100); IRON (FE) 11 UG/DL (65-175); PERCENT SATURATION 4.3 % (19.7-50.0); POTASSIUM SERUM 3.8 MEQ/L (3.5-5.1); SODIUM LEVEL 140 MEQ/L (136-145); TOTAL IRON BINDING CAPACITY 255 UG/DL (250-450)
[2021-12-21 14:00] VITALS: BP 120/82
[2021-12-21] MEDS: VANCOMYCIN HCL 500 MG in D5W MINI-BAG PLUS 100 ML IV SCH ×2 (14:40→22:07)
[2021-12-21] MEDS ORDERED: DEXTROSE 50% 50 ML SYRINGE IV PRN (18:35)
[2021-12-21] MEDS ORDERED: GLUCAGON INJ 1MG VIAL SC PRN (18:35)
[2021-12-21] MEDS ORDERED: GLUCOSE 4GM CHEW TABLET PO PRN (18:35)
[2021-12-21] MEDS: OMEPRAZOLE 20MG CAP PO SCH (20:43)
[2021-12-21] MEDS: HumaLOG INSULIN (NovoLOG) PER UNIT SC SCH (20:44)
[2021-12-21 22:00] VITALS: BP 111/74; O2SAT 89
[2021-12-21] MEDS: NYSTATIN 100,000 UNITS/GM TOPICAL PWD 15 GM TOP SCH (22:07)
[2021-12-22] MEDS: PIPERACILLIN/TAZOBACTAM SOD 3.375 GM in D5W MINI-BAG PLUS 50 ML IV SCH ×4 (03:38→22:41)
[2021-12-22 04:37] LABS: BASO % 0.3 % (0.0-1.0); EOS # 0.2 10^3/uL (0.0-0.5); EOS % 2.1 % (0.0-3.0); HEMATOCRIT 31.7 % (42.0-52.0); HEMOGLOBIN 8.7 g/dl (13.5-17.5); LYMPH # 1.2 10^3/uL (1.5-5.0); LYMPH % 16.5 % (24.0-44.0); MEAN CORPUSCULAR HEMOGLOBIN 21.3 pg (27.0-33.0); MEAN CORPUSCULAR HGB CONC 27.4 g/dl (32.0-36.5); MEAN CORPUSCULAR VOLUME 77.7 fl (80.0-96.0); MONO # 0.5 10^3/uL (0.0-0.8); NEUTROPHILS # 5.5 10^3/uL (1.5-8.5); NEUTROPHILS % 73.4 % (36.0-66.0); PLATELET COUNT, AUTOMATED 203 10^3/uL (150-450); RED BLOOD COUNT 4.08 10^6/uL (4.30-6.10); WHITE BLOOD COUNT 7.5 10^3/uL (4.0-10.0)
[2021-12-22 05:11] LABS: BLOOD UREA NITROGEN 14 MG/DL (7-18); CALCIUM LEVEL 7.6 MG/DL (8.5-10.1); CARBON DIOXIDE LEVEL 28 MEQ/L (21-32); CHLORIDE LEVEL 109 MEQ/L (98-107); CREATININE FOR GFR 1.22 MG/DL (0.70-1.30); GLOMERULAR FILTRATION RATE > 60.0 (>60); GLUCOSE, FASTING 153 MG/DL (70-100); POTASSIUM SERUM 3.8 MEQ/L (3.5-5.1); SODIUM LEVEL 142 MEQ/L (136-145)
[2021-12-22] MEDS ORDERED: VANCOMYCIN 1000MG/20ML VIAL As Ordered ONE (05:49)
[2021-12-22] MEDS: VANCOMYCIN HCL 1,000 MG, VIAL MATE ADAPTER 1 EACH in NS 250 ML IV SCH (05:55)
[2021-12-22 06:00] VITALS: BP 111/59
[2021-12-22] MEDS: HumaLOG INSULIN (NovoLOG) PER UNIT SC SCH ×4 (07:56→21:00)
[2021-12-22] MEDS: VANCOMYCIN HCL 500 MG in D5W MINI-BAG PLUS 100 ML IV SCH ×3 (07:56→23:28)
[2021-12-22] MEDS: APIXABAN 5 MG TAB (ELIQUIS) PO SCH ×2 (07:58→20:36)
[2021-12-22] MEDS: FLUTICASONE PROP 0.05% NASAL SPRAY 16 GM (FLONASE) NARES SCH ×2 (07:58→20:37)
[2021-12-22] MEDS: NYSTATIN 100,000 UNITS/GM TOPICAL PWD 15 GM TOP SCH ×2 (07:58→20:37)
[2021-12-22] MEDS: LACTOBACILLUS ACIDOPHILUS CAP (BACID) PO SCH (07:58)
[2021-12-22 09:00] VITALS: O2SAT 93
[2021-12-22 10:19] LABS: FOLATE 15.7 NG/ML (>5.4)
[2021-12-22 14:00] VITALS: BP 112/62
[2021-12-22] MEDS: VANCOMYCIN HCL 750 MG, VIAL MATE ADAPTER 1 EACH in NS 250 ML IV SCH ×2 (14:09→22:40)
[2021-12-22] MEDS: OMEPRAZOLE 20MG CAP PO SCH (20:37)
[2021-12-22 22:00] VITALS: BP 127/69
[2021-12-23] VITALS (7 sets, daily range): BP systolic 94–170; BP diastolic 58–89; O2SAT 90–95
[2021-12-23] MEDS: PIPERACILLIN/TAZOBACTAM SOD 3.375 GM in D5W MINI-BAG PLUS 50 ML IV SCH ×4 (04:33→22:34)
[2021-12-23] MEDS: VANCOMYCIN HCL 750 MG, VIAL MATE ADAPTER 1 EACH in NS 250 ML IV SCH ×3 (06:21→22:34)
[2021-12-23 06:38] LABS: BASO % 0.4 % (0.0-1.0); EOS # 0.2 10^3/uL (0.0-0.5); EOS % 1.9 % (0.0-3.0); HEMATOCRIT 31.4 % (42.0-52.0); HEMOGLOBIN 8.6 g/dl (13.5-17.5); LYMPH # 1.6 10^3/uL (1.5-5.0); MEAN CORPUSCULAR HGB CONC 27.4 g/dl (32.0-36.5); MEAN CORPUSCULAR VOLUME 76.6 fl (80.0-96.0); MONO # 0.5 10^3/uL (0.0-0.8); MONO % 6.3 % (2.0-8.0); NEUTROPHILS # 5.6 10^3/uL (1.5-8.5); NEUTROPHILS % 70.4 % (36.0-66.0); PLATELET COUNT, AUTOMATED 226 10^3/uL (150-450); WHITE BLOOD COUNT 7.9 10^3/uL (4.0-10.0)
[2021-12-23 07:05] LABS: BLOOD UREA NITROGEN 13 MG/DL (7-18); C REACTIVE PROTEIN QUANTITATIV 9.16 MG/DL (0.00-0.30); CALCIUM LEVEL 7.8 MG/DL (8.5-10.1); CARBON DIOXIDE LEVEL 29 MEQ/L (21-32); CHLORIDE LEVEL 108 MEQ/L (98-107); CREATININE FOR GFR 1.13 MG/DL (0.70-1.30); GLOMERULAR FILTRATION RATE > 60.0 (>60); GLUCOSE, FASTING 157 MG/DL (70-100); POTASSIUM SERUM 3.7 MEQ/L (3.5-5.1); SODIUM LEVEL 141 MEQ/L (136-145)
[2021-12-23] MEDS: FLUTICASONE PROP 0.05% NASAL SPRAY 16 GM (FLONASE) NARES SCH ×2 (08:00→20:08)
[2021-12-23] MEDS: VANCOMYCIN HCL 500 MG in D5W MINI-BAG PLUS 100 ML IV SCH ×3 (08:00→23:54)
[2021-12-23] MEDS: LACTOBACILLUS ACIDOPHILUS CAP (BACID) PO SCH (08:00)
[2021-12-23] MEDS: NYSTATIN 100,000 UNITS/GM TOPICAL PWD 15 GM TOP SCH ×2 (08:00→20:08)
[2021-12-23] MEDS: APIXABAN 5 MG TAB (ELIQUIS) PO SCH ×2 (08:00→20:07)
[2021-12-23] MEDS: HumaLOG INSULIN (NovoLOG) PER UNIT SC SCH ×4 (08:46→21:00)
[2021-12-23] MEDS: OMEPRAZOLE 20MG CAP PO SCH (20:08)
[2021-12-24] MEDS: PIPERACILLIN/TAZOBACTAM SOD 3.375 GM in D5W MINI-BAG PLUS 50 ML IV SCH ×3 (04:12→17:57)
[2021-12-24 06:00] VITALS: BP 170/65
[2021-12-24] MEDS: VANCOMYCIN HCL 750 MG, VIAL MATE ADAPTER 1 EACH in NS 250 ML IV SCH (06:08)
[2021-12-24 06:38] LABS: BLOOD UREA NITROGEN 11 MG/DL (7-18); CALCIUM LEVEL 8.6 MG/DL (8.5-10.1); CARBON DIOXIDE LEVEL 29 MEQ/L (21-32); CHLORIDE LEVEL 107 MEQ/L (98-107); CREATININE FOR GFR 1.02 MG/DL (0.70-1.30); GLOMERULAR FILTRATION RATE > 60.0 (>60); GLUCOSE, FASTING 122 MG/DL (70-100); POTASSIUM SERUM 3.9 MEQ/L (3.5-5.1); SODIUM LEVEL 141 MEQ/L (136-145)
[2021-12-24] MEDS: HumaLOG INSULIN (NovoLOG) PER UNIT SC SCH ×2 (08:07→13:27)
[2021-12-24] MEDS: FLUTICASONE PROP 0.05% NASAL SPRAY 16 GM (FLONASE) NARES SCH (08:07)
[2021-12-24] MEDS: LACTOBACILLUS ACIDOPHILUS CAP (BACID) PO SCH (08:07)
[2021-12-24] MEDS: VANCOMYCIN HCL 500 MG in D5W MINI-BAG PLUS 100 ML IV SCH (08:07)
[2021-12-24] MEDS: NYSTATIN 100,000 UNITS/GM TOPICAL PWD 15 GM TOP SCH (08:07)
[2021-12-24] MEDS: APIXABAN 5 MG TAB (ELIQUIS) PO SCH (08:07)
[2021-12-24 09:00] VITALS: O2SAT 94
[2021-12-24] MEDS ORDERED: VANCOMYCIN HCL 1,000 MG, VIAL MATE ADAPTER 1 EACH in NS 250 ML IV SCH (14:00)
[2021-12-24 14:54] VITALS: BP 119/45
[2021-12-24] MEDS ORDERED: LINE1TAB6 PO (15:54)
[2021-12-24] MEDS ORDERED: RISATAB3 PO (15:54)
[2021-12-24] MEDS ORDERED: CEFU50TA PO (15:54)
== END 2021-12-24 19:10 | disposition home or self-care (01) | DRG 385 ==
LOC: M ED 23:44 → EDBD 23:44 → M ED INP 12-21 05:05 → ENRESERV 12-21 05:49 → M MS5PR 12-21 06:40
PROVIDERS: ADMIT Internal Medicine; ATTEND Internal Medicine Nephrology
DX: M79.3 Panniculitis, unspecified (principal); N17.9 Acute kidney failure, unspecified; I50.32 Chronic diastolic (congestive) heart failure; E11.65 Type 2 diabetes mellitus with hyperglycemia; E66.2 Morbid (severe) obesity with alveolar hypoventilation; Z68.44 Body mass index [BMI] 60.0-69.9, adult; B37.2 Candidiasis of skin and nail; F17.200 Nicotine dependence, unspecified, uncomplicated; L03.311 Cellulitis of abdominal wall; D50.9 Iron deficiency anemia, unspecified; G47.33 Obstructive sleep apnea (adult) (pediatric); J31.0 Chronic rhinitis; K21.9 Gastro-esophageal reflux disease without esophagitis; L98.491 Non-pressure chronic ulcer of skin of other sites limited to breakdown of skin; E53.8 Deficiency of other specified B group vitamins; M16.0 Bilateral primary osteoarthritis of hip; I87.2 Venous insufficiency (chronic) (peripheral); Z88.8 Allergy status to other drugs, medicaments and biological substances; Z79.899 Other long term (current) drug therapy; Z96.642 Presence of left artificial hip joint; Z79.01 Long term (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s; Z86.718 Personal history of other venous thrombosis and embolism; Z91.19 Patient's noncompliance with other medical treatment and regimen

== ENCOUNTER 2022-08-24 17:49 | Inpatient (IN) | payer OTHER ==
[~2022-08-24] VITALS: Ht 188 cm; Wt 262.2 kg
[~2022-08-24 17:49] MED LIST changes: +CEFU50TA PO; +LINE1TAB6 PO; +RISATAB3 PO
[2022-08-24 19:21] LABS: BASO # 0.1 10^3/uL (0.0-0.2); BASO % 0.4 % (0.0-1.0); EOS # 0.1 10^3/uL (0.0-0.5); EOS % 0.6 % (0.0-3.0); HEMATOCRIT 36.3 % (42.0-52.0); HEMOGLOBIN 10.3 g/dl (13.5-17.5); LYMPH # 1.5 10^3/uL (1.5-5.0); LYMPH % 11.1 % (24.0-44.0); MEAN CORPUSCULAR HEMOGLOBIN 21.2 pg (27.0-33.0); MEAN CORPUSCULAR HGB CONC 28.4 g/dl (32.0-36.5); MEAN CORPUSCULAR VOLUME 74.8 fl (80.0-96.0); MONO # 0.8 10^3/uL (0.0-0.8); MONO % 5.5 % (2.0-8.0); NEUTROPHILS % 79.7 % (36.0-66.0); PLATELET COUNT, AUTOMATED 217 10^3/uL (150-450); RED BLOOD COUNT 4.85 10^6/uL (4.30-6.10); WHITE BLOOD COUNT 13.8 10^3/uL (4.0-10.0)
[2022-08-24 19:52] LABS: BLOOD UREA NITROGEN 17 MG/DL (9-23); CALCIUM LEVEL 7.4 MG/DL (8.5-10.1); CARBON DIOXIDE LEVEL 23 MMOL/L (20-31); CHLORIDE LEVEL 103 MMOL/L (98-107); CREATININE FOR GFR 1.23 MG/DL (0.70-1.30); GLOMERULAR FILTRATION RATE > 60.0 (>56); GLUCOSE, FASTING 187 MG/DL (60-100); POTASSIUM SERUM 4.5 MMOL/L (3.5-5.1); SODIUM LEVEL 137 MMOL/L (136-145)
[2022-08-24 19:59] LABS: RSV AMPLIFICATION NEGATIVE (NEGATIVE)
[2022-08-24] MEDS ORDERED: VANCOMYCIN HCL 1,000 MG, VIAL MATE ADAPTER 1 EACH in NS 250 ML IV SCH (21:40)
[2022-08-24] MEDS ORDERED: ACETAMINOPHEN TAB 650MG DOSE (2X325MG) PO PRN (21:40)
[2022-08-24] MEDS ORDERED: NS 1,000 ML IV ONE (21:40)
[2022-08-24] MEDS ORDERED: ROSU10TA6 PO (21:59)
[2022-08-24] MEDS ORDERED: HOME MED LIST COMPLETE! XX SCH (22:00)
[2022-08-24] MEDS ORDERED: VANCOMYCIN HCL 1,000 MG, VIAL MATE ADAPTER 1 EACH in NS 250 ML IV ONE ×2 (22:00→23:00)
[2022-08-24] MEDS ORDERED: ANEXSIA, NORCO 7.5MG/325MG TABLET(HYDROCODONE/APAP) PO PRN (22:15)
[2022-08-24] MEDS: NS 1,000 ML IV SCH (22:21)
[2022-08-24] MEDS: OMEPRAZOLE 20MG CAP PO SCH (22:28)
[2022-08-24] MEDS: APIXABAN 5 MG TAB (ELIQUIS) PO SCH (22:28)
[2022-08-24] MEDS ORDERED: ISOVUE-370 76% 100ML VIAL As Ordered ONE (23:58)
[2022-08-25] MEDS ORDERED: MORPHINE 4 MG/ML 1ML VIAL IV ONE
[2022-08-25] MEDS ORDERED: GLUCAGON INJ 1MG VIAL SC PRN (01:20)
[2022-08-25] MEDS ORDERED: DEXTROSE 50% 50ML SYRINGE IV PRN (01:20)
[2022-08-25] MEDS ORDERED: GLUCOSE 4GM CHEW TABLET PO PRN (01:20)
[2022-08-25] MEDS: NS 1,000 ML IV SCH (02:40)
[2022-08-25] MEDS: VANCOMYCIN HCL 750 MG, VIAL MATE ADAPTER 1 EACH in D5W 250 ML IV SCH ×3 (06:00→22:06)
[2022-08-25] MEDS: VANCOMYCIN HCL 500 MG in D5W MINI-BAG PLUS 100 ML IV SCH ×3 (07:53→22:05)
[2022-08-25 08:19] LABS: HEMATOCRIT 32.7 % (42.0-52.0); HEMOGLOBIN 9.2 g/dl (13.5-17.5); MEAN CORPUSCULAR HEMOGLOBIN 21.1 pg (27.0-33.0); MEAN CORPUSCULAR HGB CONC 28.1 g/dl (32.0-36.5); PLATELET COUNT, AUTOMATED 221 10^3/uL (150-450); RED BLOOD COUNT 4.36 10^6/uL (4.30-6.10); WHITE BLOOD COUNT 10.9 10^3/uL (4.0-10.0)
[2022-08-25 08:40] LABS: ERYTHROCYTE SEDIMENTATION RATE > 130 mm/hr (0-20)
[2022-08-25 08:48] LABS: MAGNESIUM LEVEL 1.6 MG/DL (1.8-2.4)
[2022-08-25 08:50] LABS: BLOOD UREA NITROGEN 15 MG/DL (9-23); CARBON DIOXIDE LEVEL 26 MMOL/L (20-31); CHLORIDE LEVEL 104 MMOL/L (98-107); CREATININE FOR GFR 1.19 MG/DL (0.70-1.30); GLOMERULAR FILTRATION RATE > 60.0 (>56); GLUCOSE, FASTING 140 MG/DL (60-100); SODIUM LEVEL 138 MMOL/L (136-145)
[2022-08-25] MEDS: INSULIN LISPRO (NovoLOG) PER UNIT SC SCH ×4 (09:52→21:00)
[2022-08-25] MEDS: DOCUSATE SODIUM 100MG CAPSULE PO SCH ×2 (09:52→21:00)
[2022-08-25] MEDS: APIXABAN 5 MG TAB (ELIQUIS) PO SCH ×2 (09:52→22:04)
[2022-08-25] MEDS: ROSUVASTATIN 10 MG TAB (CRESTOR) PO SCH (09:52)
[2022-08-25] MEDS: MAG SULF 1GM/100ML (MAG RUN) 1 GM in IV 1 EA IV SCH ×2 (09:53→11:05)
[2022-08-25 11:20] LABS: ANTI-STREPTOLYSIN O QUANT 583.6 IU/ML (<195)
[2022-08-25 12:19] LABS: HEMOGLOBIN A1c 7.9 % (4.0-6.0)
[2022-08-25] MEDS: OMEPRAZOLE 20MG CAP PO SCH (22:05)
[2022-08-26] MEDS: VANCOMYCIN HCL 750 MG, VIAL MATE ADAPTER 1 EACH in D5W 250 ML IV SCH (06:10)
[2022-08-26] MEDS: VANCOMYCIN HCL 500 MG in D5W MINI-BAG PLUS 100 ML IV SCH (06:13)
[2022-08-26 07:14] LABS: HEMATOCRIT 32.2 % (42.0-52.0); HEMOGLOBIN 9.2 g/dl (13.5-17.5); MEAN CORPUSCULAR HEMOGLOBIN 21.4 pg (27.0-33.0); MEAN CORPUSCULAR HGB CONC 28.6 g/dl (32.0-36.5); MEAN CORPUSCULAR VOLUME 74.9 fl (80.0-96.0); PLATELET COUNT, AUTOMATED 246 10^3/uL (150-450); WHITE BLOOD COUNT 10.7 10^3/uL (4.0-10.0)
[2022-08-26 07:44] LABS: MAGNESIUM LEVEL 1.7 MG/DL (1.8-2.4)
[2022-08-26 07:45] LABS: BLOOD UREA NITROGEN 15 MG/DL (9-23); CALCIUM LEVEL 7.4 MG/DL (8.5-10.1); CARBON DIOXIDE LEVEL 25 MMOL/L (20-31); CHLORIDE LEVEL 106 MMOL/L (98-107); GLOMERULAR FILTRATION RATE > 60.0 (>56); GLUCOSE, FASTING 166 MG/DL (60-100); POTASSIUM SERUM 4.2 MMOL/L (3.5-5.1); SODIUM LEVEL 137 MMOL/L (136-145)
[2022-08-26] MEDS: INSULIN LISPRO (NovoLOG) PER UNIT SC SCH ×4 (08:43→21:00)
[2022-08-26] MEDS: DOCUSATE SODIUM 100MG CAPSULE PO SCH ×2 (08:44→21:26)
[2022-08-26] MEDS: APIXABAN 5 MG TAB (ELIQUIS) PO SCH ×2 (08:44→21:26)
[2022-08-26] MEDS: ROSUVASTATIN 10 MG TAB (CRESTOR) PO SCH (08:44)
[2022-08-26] MEDS ORDERED: MAG SULF 1GM/100ML (MAG RUN) 1 GM in IV 1 EA IV ONE (11:00)
[2022-08-26] MEDS ORDERED: MAGNESIUM OXIDE 400MG TAB (MAG-OX) PO ONE (11:45)
[2022-08-26] MEDS: AUGMENTIN 875 MG TAB PO SCH ×2 (13:40→21:25)
[2022-08-26] MEDS: DOXYCYCLINE HYCLATE 100MG TABLET PO SCH ×2 (13:41→21:25)
[2022-08-26 14:29] VITALS: BP 143/67
[2022-08-26 20:00] VITALS: BP 132/54
[2022-08-26] MEDS: OMEPRAZOLE 20MG CAP PO SCH (21:25)
[2022-08-26] MEDS: DIMETHICONE 2% OINTMENT(VANICREAM) 70GM TUBE TOP SCH (21:26)
[2022-08-27 06:24] LABS: HEMATOCRIT 33.1 % (42.0-52.0); HEMOGLOBIN 9.4 g/dl (13.5-17.5); MEAN CORPUSCULAR HEMOGLOBIN 21.3 pg (27.0-33.0); MEAN CORPUSCULAR HGB CONC 28.4 g/dl (32.0-36.5); MEAN CORPUSCULAR VOLUME 75.1 fl (80.0-96.0); PLATELET COUNT, AUTOMATED 302 10^3/uL (150-450); RED BLOOD COUNT 4.41 10^6/uL (4.30-6.10); WHITE BLOOD COUNT 10.6 10^3/uL (4.0-10.0)
[2022-08-27 06:45] VITALS: BP 130/62
[2022-08-27 06:48] LABS: MAGNESIUM LEVEL 1.6 MG/DL (1.8-2.4)
[2022-08-27 06:49] LABS: BLOOD UREA NITROGEN 13 MG/DL (9-23); CALCIUM LEVEL 7.7 MG/DL (8.5-10.1); CARBON DIOXIDE LEVEL 26 MMOL/L (20-31); CHLORIDE LEVEL 104 MMOL/L (98-107); CREATININE FOR GFR 1.02 MG/DL (0.70-1.30); GLOMERULAR FILTRATION RATE > 60.0 (>56); GLUCOSE, FASTING 135 MG/DL (60-100); POTASSIUM SERUM 4.1 MMOL/L (3.5-5.1); SODIUM LEVEL 138 MMOL/L (136-145)
[2022-08-27] MEDS ORDERED: MAG SULF 1GM/100ML (MAG RUN) 1 GM in IV 1 EA IV SCH (08:00)
[2022-08-27] MEDS ORDERED: AMOX875T2 PO (08:12)
[2022-08-27] MEDS ORDERED: DOXY100T PO (08:12)
[2022-08-27] MEDS ORDERED: MAGNESIUM OXIDE 400MG TAB (MAG-OX) PO ONE (08:20)
[2022-08-27] MEDS: AUGMENTIN 875 MG TAB PO SCH (08:23)
[2022-08-27] MEDS: APIXABAN 5 MG TAB (ELIQUIS) PO SCH (08:23)
[2022-08-27] MEDS: ROSUVASTATIN 10 MG TAB (CRESTOR) PO SCH (08:23)
[2022-08-27] MEDS: DOCUSATE SODIUM 100MG CAPSULE PO SCH (08:23)
[2022-08-27] MEDS: DOXYCYCLINE HYCLATE 100MG TABLET PO SCH (08:23)
[2022-08-27] MEDS: INSULIN LISPRO (NovoLOG) PER UNIT SC SCH ×2 (08:24→13:27)
[2022-08-27] MEDS: DIMETHICONE 2% OINTMENT(VANICREAM) 70GM TUBE TOP SCH (08:24)
[2022-08-27 14:00] VITALS: BP 152/81
== END 2022-08-27 15:15 | disposition home health service (06) | DRG 383 ==
LOC: M ED 17:49 → M ED INP 21:36 → ENRESERV 08-26 12:09 → M MSPAV 08-26 14:30
PROVIDERS: ADMIT Internal Medicine; ATTEND Internal Medicine
DX: L03.115 Cellulitis of right lower limb (principal); E66.01 Morbid (severe) obesity due to excess calories; E11.9 Type 2 diabetes mellitus without complications; K21.9 Gastro-esophageal reflux disease without esophagitis; E78.5 Hyperlipidemia, unspecified; G47.33 Obstructive sleep apnea (adult) (pediatric); Z86.711 Personal history of pulmonary embolism; Z86.718 Personal history of other venous thrombosis and embolism; Z79.01 Long term (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s; Z79.899 Other long term (current) drug therapy; Z88.8 Allergy status to other drugs, medicaments and biological substances; F17.200 Nicotine dependence, unspecified, uncomplicated

== ENCOUNTER → 2022-09-23 | Outpatient (REF) | payer OTHER ==
[~2022-09-23] MED LIST changes: +AMOX875T2 PO; +DOXY100T PO; +ROSU10TA6 PO
[2022-09-23 17:22] LABS: MAGNESIUM LEVEL 1.5 MG/DL (1.8-2.4)
[2022-09-23 17:23] LABS: ALBUMIN 2.8 G/DL (3.2-5.2); ALKALINE PHOSPHATASE 76 U/L (46-116); ALT/SGPT 11 U/L (7.0-40); AST/SGOT 20 U/L (<34); BILIRUBIN,TOTAL 0.2 MG/DL (0.3-1.2); BLOOD UREA NITROGEN 12 MG/DL (9-23); CALCIUM LEVEL 8.1 MG/DL (8.5-10.1); CARBON DIOXIDE LEVEL 26 MMOL/L (20-31); CHLORIDE LEVEL 104 MMOL/L (98-107); CHOLESTEROL LEVEL 114 MG/DL (<200); CREATININE FOR GFR 0.87 MG/DL (0.70-1.30); GLOMERULAR FILTRATION RATE > 60.0 (>56); GLUCOSE, FASTING 169 MG/DL (60-100); HDL CHOLESTEROL 27.1 MG/DL (>40); LDL CHOLESTEROL 59.7 MG/DL (<100); NON-HDL-C 87 MG/DL; POTASSIUM SERUM 4.7 MMOL/L (3.5-5.1); SODIUM LEVEL 137 MMOL/L (136-145); TOTAL PROTEIN 7.8 G/DL (5.7-8.2); TRIGLYCERIDES LEVEL 136 MG/DL (<150)
[2022-09-23 17:25] LABS: HEMOGLOBIN A1c 7.2 % (4.0-6.0); THYROID STIMULATING HORMONE 4.788 uIU/ML (0.55-4.78)
[2022-09-23 18:19] LABS: BASO # 0.1 10^3/uL (0.0-0.2); BASO % 0.5 % (0.0-1.0); EOS # 0.1 10^3/uL (0.0-0.5); EOS % 1.5 % (0.0-3.0); HEMATOCRIT 36.3 % (42.0-52.0); HEMOGLOBIN 10.5 g/dl (13.5-17.5); LYMPH # 1.8 10^3/uL (1.5-5.0); LYMPH % 19.3 % (24.0-44.0); MEAN CORPUSCULAR HEMOGLOBIN 22.2 pg (27.0-33.0); MEAN CORPUSCULAR HGB CONC 28.9 g/dl (32.0-36.5); MEAN CORPUSCULAR VOLUME 76.9 fl (80.0-96.0); MONO # 0.6 10^3/uL (0.0-0.8); MONO % 6.2 % (2.0-8.0); NEUTROPHILS # 6.6 10^3/uL (1.5-8.5); NEUTROPHILS % 71.5 % (36.0-66.0); PLATELET COUNT, AUTOMATED 215 10^3/uL (150-450); RED BLOOD COUNT 4.72 10^6/uL (4.30-6.10); WHITE BLOOD COUNT 9.2 10^3/uL (4.0-10.0)
== END ==
LOC: M LAB REF 16:18
PROVIDERS: ATTEND Family Medicine Addiction Medicine
DX: E11.9 Type 2 diabetes mellitus without complications (principal); D72.829 Elevated white blood cell count, unspecified; E83.42 Hypomagnesemia

== ENCOUNTER 2023-03-27 17:21 | Inpatient (IN) | payer OTHER ==
[~2023-03-27] VITALS: Ht 188 cm; Wt 241.6 kg
[2023-03-27 18:03] LABS: BASO % 0.1 % (0.0-1.0); EOS % 0.2 % (0.0-3.0); HEMATOCRIT 43.3 % (42.0-52.0); HEMOGLOBIN 12.4 g/dl (13.5-17.5); LYMPH # 0.5 10^3/uL (1.5-5.0); MEAN CORPUSCULAR HEMOGLOBIN 21.9 pg (27.0-33.0); MEAN CORPUSCULAR HGB CONC 28.6 g/dl (32.0-36.5); MEAN CORPUSCULAR VOLUME 76.4 fl (80.0-96.0); MONO # 0.3 10^3/uL (0.0-0.8); MONO % 1.6 % (2.0-8.0); NEUTROPHILS # 16.8 10^3/uL (1.5-8.5); PLATELET COUNT, AUTOMATED 298 10^3/uL (150-450); RED BLOOD COUNT 5.67 10^6/uL (4.30-6.10); WHITE BLOOD COUNT 17.9 10^3/uL (4.0-10.0)
[2023-03-27] MEDS ORDERED: ACETAMINOPHEN 325 MG TAB PO ONE (18:20)
[2023-03-27 18:24] LABS: BLOOD UREA NITROGEN 14 MG/DL (9-23); CALCIUM LEVEL 8.1 MG/DL (8.5-10.1); CARBON DIOXIDE LEVEL 26 MMOL/L (20-31); CHLORIDE LEVEL 101 MMOL/L (98-107); GLOMERULAR FILTRATION RATE > 60.0 (>56); GLUCOSE, FASTING 130 MG/DL (60-100); POTASSIUM SERUM 4.7 MMOL/L (3.5-5.1); SODIUM LEVEL 135 MMOL/L (136-145)
[2023-03-27] MEDS ORDERED: ISOVUE-370 76% 100ML VIAL As Ordered ONE (18:32)
[2023-03-27] MEDS ORDERED: VANCOMYCIN HCL 2,000 MG in D5W 500 ML IV ONE (18:50)
[2023-03-27] MEDS ORDERED: VANCOMYCIN HCL 1,000 MG, VIAL MATE ADAPTER 1 EACH in D5W 250 ML IV ONE ×2 (19:00→20:00)
[2023-03-27 21:32] LABS: ALBUMIN 2.8 G/DL (3.2-5.2); ALKALINE PHOSPHATASE 71 U/L (46-116); ALT/SGPT < 9 U/L (7.0-40); AST/SGOT < 8 U/L (<34); BILIRUBIN,DIRECT 0.2 MG/DL (<0.4); BILIRUBIN,TOTAL 0.6 MG/DL (0.3-1.2); TOTAL PROTEIN 7.9 G/DL (5.7-8.2)
[2023-03-27] MEDS ORDERED: HOME MED LIST COMPLETE! XX SCH (21:45)
[2023-03-27 22:53] LABS: RSV AMPLIFICATION NEGATIVE (NEGATIVE)
[2023-03-27] MEDS: OMEPRAZOLE 20MG CAP PO SCH (23:14)
[2023-03-27] MEDS: APIXABAN 5 MG TAB (ELIQUIS) PO SCH (23:14)
[2023-03-27] MEDS: NYSTATIN 100,000 UNITS/GM TOPICAL PWD 15GM TOP SCH (23:14)
[2023-03-27] MEDS ORDERED: ACETAMINOPHEN TAB 650MG DOSE (2X325MG) PO PRN (23:25)
[2023-03-28] VITALS (7 sets, daily range): BP systolic 103–137; BP diastolic 54–63; TEMP 96.7–98.2; O2SAT 93–98
[2023-03-28] MEDS: VANCOMYCIN HCL 1,000 MG, VIAL MATE ADAPTER 1 EACH in D5W 250 ML IV SCH ×3 (03:59→19:04)
[2023-03-28 05:00] LABS: HEMATOCRIT 36.9 % (42.0-52.0); HEMOGLOBIN 10.6 g/dl (13.5-17.5); MEAN CORPUSCULAR HEMOGLOBIN 21.9 pg (27.0-33.0); MEAN CORPUSCULAR HGB CONC 28.7 g/dl (32.0-36.5); MEAN CORPUSCULAR VOLUME 76.1 fl (80.0-96.0); PLATELET COUNT, AUTOMATED 244 10^3/uL (150-450); RED BLOOD COUNT 4.85 10^6/uL (4.30-6.10); WHITE BLOOD COUNT 17.2 10^3/uL (4.0-10.0)
[2023-03-28] MEDS: VANCOMYCIN HCL 500 MG in D5W MINI-BAG PLUS 100 ML IV SCH ×3 (05:10→20:45)
[2023-03-28 05:24] LABS: BLOOD UREA NITROGEN 14 MG/DL (9-23); CALCIUM LEVEL 7.6 MG/DL (8.5-10.1); CARBON DIOXIDE LEVEL 26 MMOL/L (20-31); CHLORIDE LEVEL 102 MMOL/L (98-107); CREATININE FOR GFR 1.13 MG/DL (0.70-1.30); GLOMERULAR FILTRATION RATE > 60.0 (>56); GLUCOSE, FASTING 145 MG/DL (60-100); POTASSIUM SERUM 4.1 MMOL/L (3.5-5.1); SODIUM LEVEL 135 MMOL/L (136-145)
[2023-03-28 05:36] LABS: PROCALCITONIN 2.26 ng/ml
[2023-03-28] MEDS: PIPERACILLIN/TAZOBACTAM SOD 3.375 GM in D5W MINI-BAG PLUS 50 ML IV SCH ×3 (08:38→22:24)
[2023-03-28] MEDS: APIXABAN 5 MG TAB (ELIQUIS) PO SCH ×2 (08:42→22:25)
[2023-03-28] MEDS: NYSTATIN 100,000 UNITS/GM TOPICAL PWD 15GM TOP SCH ×2 (08:42→21:00)
[2023-03-28] MEDS: ROSUVASTATIN 10 MG TAB (CRESTOR) PO SCH (22:25)
[2023-03-28] MEDS: OMEPRAZOLE 20MG CAP PO SCH (22:25)
[2023-03-29] VITALS (8 sets, daily range): BP systolic 117–153; BP diastolic 59–73; TEMP 96.9–97.2; O2SAT 90–96
[2023-03-29] MEDS: VANCOMYCIN HCL 1,000 MG, VIAL MATE ADAPTER 1 EACH in D5W 250 ML IV SCH (02:50)
[2023-03-29] MEDS: VANCOMYCIN HCL 500 MG in D5W MINI-BAG PLUS 100 ML IV SCH ×3 (03:38→20:28)
[2023-03-29] MEDS: PIPERACILLIN/TAZOBACTAM SOD 3.375 GM in D5W MINI-BAG PLUS 50 ML IV SCH ×4 (04:26→22:19)
[2023-03-29 05:08] LABS: BASO % 0.3 % (0.0-1.0); EOS # 0.2 10^3/uL (0.0-0.5); EOS % 1.4 % (0.0-3.0); HEMATOCRIT 37.1 % (42.0-52.0); HEMOGLOBIN 10.5 g/dl (13.5-17.5); LYMPH # 1.1 10^3/uL (1.5-5.0); LYMPH % 10.2 % (24.0-44.0); MEAN CORPUSCULAR HEMOGLOBIN 21.6 pg (27.0-33.0); MEAN CORPUSCULAR HGB CONC 28.3 g/dl (32.0-36.5); MEAN CORPUSCULAR VOLUME 76.5 fl (80.0-96.0); MONO # 0.4 10^3/uL (0.0-0.8); MONO % 3.1 % (2.0-8.0); NEUTROPHILS # 9.5 10^3/uL (1.5-8.5); NEUTROPHILS % 84.6 % (36.0-66.0); PLATELET COUNT, AUTOMATED 235 10^3/uL (150-450); RED BLOOD COUNT 4.85 10^6/uL (4.30-6.10); WHITE BLOOD COUNT 11.2 10^3/uL (4.0-10.0)
[2023-03-29 05:42] LABS: ALBUMIN 2.1 G/DL (3.2-5.2); ALKALINE PHOSPHATASE 58 U/L (46-116); ALT/SGPT < 9 U/L (7.0-40); AST/SGOT < 8 U/L (<34); BILIRUBIN,TOTAL 0.4 MG/DL (0.3-1.2); BLOOD UREA NITROGEN 12 MG/DL (9-23); CALCIUM LEVEL 8.1 MG/DL (8.5-10.1); CARBON DIOXIDE LEVEL 25 MMOL/L (20-31); CHLORIDE LEVEL 103 MMOL/L (98-107); CREATININE FOR GFR 1.05 MG/DL (0.70-1.30); GLOMERULAR FILTRATION RATE > 60.0 (>56); GLUCOSE, FASTING 120 MG/DL (60-100); MAGNESIUM LEVEL 1.8 MG/DL (1.8-2.4); POTASSIUM SERUM 4.1 MMOL/L (3.5-5.1); SODIUM LEVEL 135 MMOL/L (136-145); TOTAL PROTEIN 6.5 G/DL (5.7-8.2)
[2023-03-29] MEDS: APIXABAN 5 MG TAB (ELIQUIS) PO SCH ×2 (08:23→20:41)
[2023-03-29] MEDS: VANCOMYCIN HCL 750 MG, VIAL MATE ADAPTER 1 EACH in D5W 250 ML IV SCH ×2 (09:53→18:13)
[2023-03-29] MEDS: NYSTATIN 100,000 UNITS/GM TOPICAL PWD 15GM TOP SCH (13:10)
[2023-03-29] MEDS: OMEPRAZOLE 20MG CAP PO SCH (20:41)
[2023-03-29] MEDS: ANEXSIA, NORCO 7.5MG/325MG TABLET(HYDROCODONE/APAP) PO PRN (20:41)
[2023-03-29] MEDS: ROSUVASTATIN 10 MG TAB (CRESTOR) PO SCH (20:42)
[2023-03-30] MEDS: VANCOMYCIN HCL 750 MG, VIAL MATE ADAPTER 1 EACH in D5W 250 ML IV SCH (02:26)
[2023-03-30] MEDS: VANCOMYCIN HCL 500 MG in D5W MINI-BAG PLUS 100 ML IV SCH (03:38)
[2023-03-30] MEDS: ANEXSIA, NORCO 7.5MG/325MG TABLET(HYDROCODONE/APAP) PO PRN ×2 (03:43→20:58)
[2023-03-30 04:05] VITALS: BP 113/69; TEMP 96.3; O2SAT 96
[2023-03-30] MEDS: PIPERACILLIN/TAZOBACTAM SOD 3.375 GM in D5W MINI-BAG PLUS 50 ML IV SCH ×2 (04:43→09:09)
[2023-03-30] MEDS: LIDOCAINE 5% (LIDODERM) PATCH TD SCH (05:42)
[2023-03-30 07:03] LABS: BASO % 0.5 % (0.0-1.0); EOS # 0.2 10^3/uL (0.0-0.5); EOS % 2.4 % (0.0-3.0); HEMATOCRIT 43.7 % (42.0-52.0); HEMOGLOBIN 12.3 g/dl (13.5-17.5); LYMPH # 1.5 10^3/uL (1.5-5.0); LYMPH % 17.6 % (24.0-44.0); MEAN CORPUSCULAR HEMOGLOBIN 21.9 pg (27.0-33.0); MEAN CORPUSCULAR HGB CONC 28.1 g/dl (32.0-36.5); MEAN CORPUSCULAR VOLUME 77.8 fl (80.0-96.0); MONO # 0.4 10^3/uL (0.0-0.8); MONO % 4.7 % (2.0-8.0); NEUTROPHILS # 6.2 10^3/uL (1.5-8.5); NEUTROPHILS % 73.5 % (36.0-66.0); PLATELET COUNT, AUTOMATED 318 10^3/uL (150-450); RED BLOOD COUNT 5.62 10^6/uL (4.30-6.10); WHITE BLOOD COUNT 8.4 10^3/uL (4.0-10.0)
[2023-03-30 07:40] VITALS: BP 124/59; TEMP 96.6; O2SAT 95
[2023-03-30 07:47] LABS: ALBUMIN 2.6 G/DL (3.2-5.2); ALKALINE PHOSPHATASE 75 U/L (46-116); ALT/SGPT < 9 U/L (7.0-40); AST/SGOT 10 U/L (<34); BILIRUBIN,TOTAL 0.5 MG/DL (0.3-1.2); BLOOD UREA NITROGEN 16 MG/DL (9-23); CALCIUM LEVEL 8.4 MG/DL (8.5-10.1); CARBON DIOXIDE LEVEL 22 MMOL/L (20-31); CHLORIDE LEVEL 103 MMOL/L (98-107); CREATININE FOR GFR 1.31 MG/DL (0.70-1.30); GLOMERULAR FILTRATION RATE > 60.0 (>56); GLUCOSE, FASTING 123 MG/DL (60-100); MAGNESIUM LEVEL 1.7 MG/DL (1.8-2.4); POTASSIUM SERUM 4.4 MMOL/L (3.5-5.1); SODIUM LEVEL 137 MMOL/L (136-145)
[2023-03-30] MEDS ORDERED: NS 1,000 ML IV SCH (09:00)
[2023-03-30] MEDS: APIXABAN 5 MG TAB (ELIQUIS) PO SCH ×2 (09:09→20:58)
[2023-03-30] MEDS ORDERED: cefTRIAXone SOD 1 GM in D5W MINI-BAG PLUS 50 ML IV SCH (12:00)
[2023-03-30] MEDS: AMPICILLIN SOD/SULBACTAM SOD 3 GM in D5W MINI-BAG PLUS 100 ML IV SCH ×2 (15:10→20:59)
[2023-03-30 17:10] VITALS: BP 134/74; TEMP 97.5; O2SAT 96
[2023-03-30 20:50] VITALS: BP 110/54; TEMP 97.7; O2SAT 94
[2023-03-30] MEDS: OMEPRAZOLE 20MG CAP PO SCH (20:58)
[2023-03-30] MEDS: ROSUVASTATIN 10 MG TAB (CRESTOR) PO SCH (20:59)
[2023-03-31] MEDS: AMPICILLIN SOD/SULBACTAM SOD 3 GM in D5W MINI-BAG PLUS 100 ML IV SCH ×2 (03:34→09:21)
[2023-03-31 05:45] VITALS: BP 105/53; TEMP 97.3; O2SAT 96
[2023-03-31 07:29] LABS: BASO # 0.1 10^3/uL (0.0-0.2); BASO % 0.7 % (0.0-1.0); EOS # 0.2 10^3/uL (0.0-0.5); EOS % 2.8 % (0.0-3.0); HEMATOCRIT 41.9 % (42.0-52.0); HEMOGLOBIN 11.9 g/dl (13.5-17.5); LYMPH # 1.3 10^3/uL (1.5-5.0); LYMPH % 16.7 % (24.0-44.0); MEAN CORPUSCULAR HEMOGLOBIN 21.7 pg (27.0-33.0); MEAN CORPUSCULAR HGB CONC 28.4 g/dl (32.0-36.5); MEAN CORPUSCULAR VOLUME 76.5 fl (80.0-96.0); MONO # 0.4 10^3/uL (0.0-0.8); MONO % 4.8 % (2.0-8.0); NEUTROPHILS # 5.4 10^3/uL (1.5-8.5); NEUTROPHILS % 71.9 % (36.0-66.0); PLATELET COUNT, AUTOMATED 326 10^3/uL (150-450); RED BLOOD COUNT 5.48 10^6/uL (4.30-6.10); WHITE BLOOD COUNT 7.5 10^3/uL (4.0-10.0)
[2023-03-31 07:45] LABS: VANCOMYCIN RANDOM 9.7 UG/ML
[2023-03-31 07:46] LABS: ALBUMIN 2.6 G/DL (3.2-5.2); ALKALINE PHOSPHATASE 71 U/L (46-116); ALT/SGPT < 9 U/L (7.0-40); AST/SGOT 11 U/L (<34); BILIRUBIN,TOTAL 0.4 MG/DL (0.3-1.2); BLOOD UREA NITROGEN 17 MG/DL (9-23); CALCIUM LEVEL 8.3 MG/DL (8.5-10.1); CARBON DIOXIDE LEVEL 26 MMOL/L (20-31); CHLORIDE LEVEL 103 MMOL/L (98-107); CREATININE FOR GFR 1.25 MG/DL (0.70-1.30); GLOMERULAR FILTRATION RATE > 60.0 (>56); GLUCOSE, FASTING 126 MG/DL (60-100); MAGNESIUM LEVEL 1.6 MG/DL (1.8-2.4); POTASSIUM SERUM 4.6 MMOL/L (3.5-5.1); SODIUM LEVEL 137 MMOL/L (136-145); TOTAL PROTEIN 7.8 G/DL (5.7-8.2)
[2023-03-31] MEDS: LIDOCAINE 5% (LIDODERM) PATCH TD SCH (09:00)
[2023-03-31] MEDS: APIXABAN 5 MG TAB (ELIQUIS) PO SCH (09:21)
[2023-03-31] MEDS ORDERED: DOXY100T PO (10:57)
[2023-03-31] MEDS ORDERED: MAGN1TAB26 PO (10:57)
[2023-03-31] MEDS ORDERED: AMOX875T2 PO (10:57)
[2023-03-31] MEDS: VANCOMYCIN HCL 750 MG, VIAL MATE ADAPTER 1 EACH in D5W 250 ML IV SCH (11:55)
[2023-03-31] MEDS: VANCOMYCIN HCL 500 MG in D5W MINI-BAG PLUS 100 ML IV SCH (13:02)
[2023-03-31 14:00] VITALS: BP 115/57; TEMP 97.3; O2SAT 97
[2023-03-31] MEDS: MAG SULF 1GM/100ML (MAG RUN) 1 GM in IV 1 EA IV SCH ×3 (14:00→15:34)
[2023-04-01] MEDS ORDERED: VANCOMYCIN HCL 750 MG, VIAL MATE ADAPTER 1 EACH in D5W 250 ML IV SCH (10:00)
[2023-04-01] MEDS ORDERED: VANCOMYCIN HCL 500 MG in D5W MINI-BAG PLUS 100 ML IV SCH (11:00)
== END 2023-03-31 17:13 | disposition home health service (06) | DRG 720 ==
LOC: M ED 17:21 → EDBD 17:21 → M ED INP 22:12 → ENRESERV 23:18 → M PCU 03-28 00:31 → M MSPAV 03-30 17:06
PROVIDERS: ADMIT Family Medicine; ATTEND Internal Medicine
PROC: B246ZZZ Ultrasonography of Right and Left Heart (ICD-10-PCS; principal; 2023-03-30)
DX: A41.9 Sepsis, unspecified organism (principal); N17.9 Acute kidney failure, unspecified; L03.314 Cellulitis of groin; Z68.44 Body mass index [BMI] 60.0-69.9, adult; L03.115 Cellulitis of right lower limb; E66.01 Morbid (severe) obesity due to excess calories; L98.429 Non-pressure chronic ulcer of back with unspecified severity; I73.9 Peripheral vascular disease, unspecified; N18.9 Chronic kidney disease, unspecified; E78.5 Hyperlipidemia, unspecified; L30.4 Erythema intertrigo; I87.2 Venous insufficiency (chronic) (peripheral); G47.33 Obstructive sleep apnea (adult) (pediatric); K21.9 Gastro-esophageal reflux disease without esophagitis; R32 Unspecified urinary incontinence; F17.210 Nicotine dependence, cigarettes, uncomplicated; R26.89 Other abnormalities of gait and mobility; R59.9 Enlarged lymph nodes, unspecified; G89.29 Other chronic pain; M25.559 Pain in unspecified hip; N49.2 Inflammatory disorders of scrotum; Z79.01 Long term (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s; Z79.891 Long term (current) use of opiate analgesic; Z86.718 Personal history of other venous thrombosis and embolism; Z86.711 Personal history of pulmonary embolism; Z88.8 Allergy status to other drugs, medicaments and biological substances; Z20.822 Contact with and (suspected) exposure to COVID-19

== ENCOUNTER 2023-04-08 17:31 | Emergency (ER) | payer OTHER ==
[~2023-04-08] VITALS: Ht 185.4 cm; Wt 247.1 kg
[~2023-04-08 17:31] MED LIST changes: +MAGN1TAB26 PO
[2023-04-08 17:58] VITALS: TEMP 98.7
[2023-04-08 20:15] VITALS: BP 137/68; O2SAT 94
== END 2023-04-08 21:02 | disposition home or self-care (01) ==
LOC: M ED 17:31
DX: T83.021A Displacement of indwelling urethral catheter, initial encounter (principal); K21.9 Gastro-esophageal reflux disease without esophagitis; G47.33 Obstructive sleep apnea (adult) (pediatric); E66.9 Obesity, unspecified; E78.5 Hyperlipidemia, unspecified; Z86.718 Personal history of other venous thrombosis and embolism; Z88.8 Allergy status to other drugs, medicaments and biological substances; Z79.2 Long term (current) use of antibiotics; Z79.01 Long term (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s; Z79.899 Other long term (current) drug therapy

== ENCOUNTER 2023-10-04 09:56 | Inpatient (IN) | payer OTHER ==
[2023-10-04] VITALS (9 sets, daily range): BP systolic 112–127; BP diastolic 62–66; TEMP 97.5–97.9; O2SAT 88–97
[~2023-10-04] VITALS: Ht 185.4 cm; Wt 257.3 kg
[2023-10-04] MEDS: ALBUTEROL SULFATE 2.5MG/0.5ML INH NEB SOLN INH ONE (10:20)
[2023-10-04] MEDS: IPRATROPIUM 0.5MG/ALBUTEROL 2.5MG INH SOL UD 3ML (DUONEB) NEB ONE (10:20)
[2023-10-04 10:41] LABS: ABG BASE EXCESS -1.3 (-2.0-2.0); ABG HCO3 22.5 MMOL/L (22.0-26.0); ABG O2 SATURATION 93.6 % (95.0-99.0); ABG PARTIAL PRESSURE O2 64.8 mmHg (75.0-100.0); ABG STANDARD HCO3 23.3 MMOL/L. (22.0-26.0); ABG TOTAL CO2 23.6 MMOL/L (22.0-29.0); ABG pH (ARTERIAL) 7.426 UNITS (7.350-7.450)
[2023-10-04] MEDS: methylPREDNISolone 125MG 2ML VIAL IV ONE (10:42)
[2023-10-04 10:51] LABS: BASO % 0.1 % (0.0-1.0); HEMOGLOBIN 13.6 g/dl (13.5-17.5); LYMPH # 0.5 10^3/uL (1.5-5.0); LYMPH % 2.5 % (24.0-44.0); MEAN CORPUSCULAR HEMOGLOBIN 23.2 pg (27.0-33.0); MEAN CORPUSCULAR HGB CONC 28.9 g/dl (32.0-36.5); MEAN CORPUSCULAR VOLUME 80.1 fl (80.0-96.0); MONO # 0.3 10^3/uL (0.0-0.8); MONO % 1.1 % (2.0-8.0); NEUTROPHILS # 20.7 10^3/uL (1.5-8.5); NEUTROPHILS % 94.9 % (36.0-66.0); PLATELET COUNT, AUTOMATED 324 10^3/uL (150-450); RED BLOOD COUNT 5.87 10^6/uL (4.30-6.10); WHITE BLOOD COUNT 21.9 10^3/uL (4.0-10.0)
[2023-10-04 11:07] LABS: INR 1.36; PROTHROMBIN TIME 16.3 SECONDS (12.5-14.5)
[2023-10-04] MEDS: PIPERACILLIN/TAZOBACTAM SOD 4.5 GM in D5W MINI-BAG PLUS 50 ML IV ONE (11:31)
[2023-10-04] MEDS: NS 1,000 ML IV ONE (11:31)
[2023-10-04 12:29] LABS: CK-MB VALUE MASS < 1.0 NG/ML (<3.6)
[2023-10-04 12:30] LABS: CPK CREATINE PHOSPHOKINASE 37 U/L (46-171)
[2023-10-04 12:35] LABS: THYROID STIMULATING HORMONE 2.072 uIU/ML (0.55-4.78); THYROXINE (T4) 7.6 UG/DL (4.5-10.9)
[2023-10-04 12:39] LABS: PROCALCITONIN 2.46 ng/ml
[2023-10-04 12:43] LABS: CK-MB VALUE MASS < 1.0 NG/ML (<3.6)
[2023-10-04] MEDS ORDERED: HOME MED LIST COMPLETE! XX SCH (12:50)
[2023-10-04 13:01] LABS: ALBUMIN 2.8 G/DL (3.2-5.2); ALKALINE PHOSPHATASE 68 U/L (46-116); ALT/SGPT 10 U/L (7.0-40); AST/SGOT 16 U/L (<34); BILIRUBIN,DIRECT 0.3 MG/DL (<0.4); BILIRUBIN,TOTAL 0.9 MG/DL (0.3-1.2); BLOOD UREA NITROGEN 13 MG/DL (9-23); CALCIUM LEVEL 8.1 MG/DL (8.5-10.1); CARBON DIOXIDE LEVEL 20 MMOL/L (20-31); CHLORIDE LEVEL 103 MMOL/L (98-107); CREATININE FOR GFR 1.45 MG/DL (0.70-1.30); GLOMERULAR FILTRATION RATE 54.6 (>56); GLUCOSE, FASTING 183 MG/DL (60-100); SODIUM LEVEL 133 MMOL/L (136-145)
[2023-10-04 13:02] LABS: CPK CREATINE PHOSPHOKINASE 48 U/L (46-171); MB/CK RELATIVE INDEX 2.08 (< OR =4); POTASSIUM SERUM 5.3 MMOL/L (3.5-5.1); TOTAL PROTEIN 7.5 G/DL (5.7-8.2)
[2023-10-04] MEDS ORDERED: CEFTAROLINE FOSAMIL 300 MG in D5W 50 ML IV SCH (13:15)
[2023-10-04] MEDS ORDERED: LEVALBUTEROL 1.25MG 0.5ML CONCENTRATE NEB INH PRN (13:25)
[2023-10-04] MEDS ORDERED: ONDANSETRON 4MG 2ML VIAL IV PRN (13:30)
[2023-10-04] MEDS: NS IV ONE (13:40)
[2023-10-04] MEDS: LEVALBUTEROL 1.25MG 0.5ML CONCENTRATE NEB INH SCH (14:44)
[2023-10-04] MEDS: CALCIUM GLUCONATE 1,000 MG in D5W MINI-BAG PLUS 100 ML IV ONE (15:18)
[2023-10-04] MEDS: PATIROMER SORBITEX CALCIUM 8.4 GM POWDER PACKET (VELTASSA) PO ONE (15:18)
[2023-10-04] MEDS: ACETAMINOPHEN TAB 650MG DOSE (2X325MG) PO PRN (15:18)
[2023-10-04 16:04] LABS: CHOLESTEROL RISK RATIO 4.56 (<5); LDL CHOLESTEROL 72.4 MG/DL (<100)
[2023-10-04 16:05] LABS: HEMOGLOBIN A1c 6.7 % (4.0-6.0)
[2023-10-04] MEDS ORDERED: DEXTROSE 50% 50ML SYRINGE IV PRN (16:50)
[2023-10-04] MEDS ORDERED: GLUCAGON INJ 1MG VIAL SC PRN (16:50)
[2023-10-04] MEDS ORDERED: GLUCOSE 4GM CHEW TABLET PO PRN (16:50)
[2023-10-04] MEDS: CEFTAROLINE FOSAMIL 600 MG in D5W MINI-BAG PLUS 50 ML IV SCH (17:18)
[2023-10-04] MEDS: INSULIN LISPRO (NovoLOG) PER UNIT SC SCH ×2 (17:30→20:18)
[2023-10-04] MEDS: LACTIC ACID 12% LOTION 225 GM BTL TOP SCH (20:17)
[2023-10-04] MEDS: APIXABAN 5 MG TAB (ELIQUIS) PO SCH (20:19)
[2023-10-04] MEDS: CETIRIZINE (ZyrTEC) 10 MG TAB PO SCH (20:19)
[2023-10-04] MEDS: NS 1,000 ML IV SCH (20:24)
[2023-10-05] VITALS (20 sets, daily range): BP systolic 119–138; BP diastolic 61–85; TEMP 97–98.3; O2SAT 90–100
[2023-10-05 05:57] LABS: BASO % 0.1 % (0.0-1.0); HEMATOCRIT 40.3 % (42.0-52.0); HEMOGLOBIN 11.8 g/dl (13.5-17.5); LYMPH # 0.6 10^3/uL (1.5-5.0); LYMPH % 3.4 % (24.0-44.0); MEAN CORPUSCULAR HEMOGLOBIN 23.4 pg (27.0-33.0); MEAN CORPUSCULAR HGB CONC 29.3 g/dl (32.0-36.5); MEAN CORPUSCULAR VOLUME 79.8 fl (80.0-96.0); MONO # 0.5 10^3/uL (0.0-0.8); MONO % 2.7 % (2.0-8.0); NEUTROPHILS # 16.7 10^3/uL (1.5-8.5); PLATELET COUNT, AUTOMATED 241 10^3/uL (150-450); RED BLOOD COUNT 5.05 10^6/uL (4.30-6.10)
[2023-10-05 06:17] LABS: BLOOD UREA NITROGEN 16 MG/DL (9-23); CALCIUM LEVEL 8.1 MG/DL (8.5-10.1); CARBON DIOXIDE LEVEL 24 MMOL/L (20-31); CHLORIDE LEVEL 102 MMOL/L (98-107); GLOMERULAR FILTRATION RATE > 60.0 (>56); GLUCOSE, FASTING 250 MG/DL (60-100); POTASSIUM SERUM 4.6 MMOL/L (3.5-5.1); SODIUM LEVEL 133 MMOL/L (136-145)
[2023-10-05] MEDS: INSULIN LISPRO (NovoLOG) PER UNIT SC SCH (09:38)
[2023-10-05] MEDS: LEVEMIR (INSULIN DETEMIR) 1 UNITS/0.01ML SC ONE (09:38)
[2023-10-05] MEDS ORDERED: INSULIN LISPRO (NovoLOG) PER UNIT SC SCH ×2 (12:00→21:00)
[2023-10-05] MEDS: OMEPRAZOLE 20MG CAP PO SCH (20:01)
[2023-10-05 21:26] LABS: ANTI-STREPTOLYSIN O QUANT > 1973.7 IU/ML (<195)
[2023-10-06] VITALS (20 sets, daily range): BP systolic 123–135; BP diastolic 69–92; TEMP 96.8–97.7; O2SAT 91–97
[2023-10-06 06:16] LABS: BASO % 0.2 % (0.0-1.0); EOS % 0.2 % (0.0-3.0); HEMATOCRIT 38.6 % (42.0-52.0); LYMPH # 1.7 10^3/uL (1.5-5.0); LYMPH % 12.6 % (24.0-44.0); MEAN CORPUSCULAR HEMOGLOBIN 23.1 pg (27.0-33.0); MEAN CORPUSCULAR HGB CONC 28.5 g/dl (32.0-36.5); MEAN CORPUSCULAR VOLUME 81.1 fl (80.0-96.0); MONO # 0.7 10^3/uL (0.0-0.8); MONO % 5.7 % (2.0-8.0); NEUTROPHILS # 10.5 10^3/uL (1.5-8.5); NEUTROPHILS % 80.5 % (36.0-66.0); PLATELET COUNT, AUTOMATED 227 10^3/uL (150-450); RED BLOOD COUNT 4.76 10^6/uL (4.30-6.10); WHITE BLOOD COUNT 13.1 10^3/uL (4.0-10.0)
[2023-10-06] MEDS ORDERED: DOXY-444 PO (06:33)
[2023-10-06] MEDS ORDERED: AMOX875T2 PO (06:33)
[2023-10-06] MEDS ORDERED: BACI1CAP PO (06:33)
[2023-10-06 06:48] LABS: BLOOD UREA NITROGEN 23 MG/DL (9-23); CALCIUM LEVEL 8.1 MG/DL (8.5-10.1); CARBON DIOXIDE LEVEL 28 MMOL/L (20-31); CHLORIDE LEVEL 102 MMOL/L (98-107); CREATININE FOR GFR 1.16 MG/DL (0.70-1.30); GLOMERULAR FILTRATION RATE > 60.0 (>56); GLUCOSE, FASTING 121 MG/DL (60-100); POTASSIUM SERUM 4.5 MMOL/L (3.5-5.1); SODIUM LEVEL 134 MMOL/L (136-145)
[2023-10-06 07:48] LABS: PROCALCITONIN 1.64 ng/ml
[2023-10-06 08:20] LABS: ERYTHROCYTE SEDIMENTATION RATE 73 mm/hr (0-20)
[2023-10-06] MEDS: LIDOCAINE 5% (LIDODERM) PATCH TD SCH (12:33)
[2023-10-06] MEDS: CEFTAROLINE FOSAMIL 600 MG in D5W MINI-BAG PLUS 50 ML IV SCH (12:54)
[2023-10-07 05:00] VITALS: BP 138/75; TEMP 97.3; O2SAT 97
[2023-10-07 06:23] LABS: BASO % 0.4 % (0.0-1.0); EOS # 0.1 10^3/uL (0.0-0.5); EOS % 1.1 % (0.0-3.0); HEMATOCRIT 38.2 % (42.0-52.0); HEMOGLOBIN 11.1 g/dl (13.5-17.5); LYMPH # 1.3 10^3/uL (1.5-5.0); LYMPH % 16.8 % (24.0-44.0); MEAN CORPUSCULAR HEMOGLOBIN 23.1 pg (27.0-33.0); MEAN CORPUSCULAR HGB CONC 29.1 g/dl (32.0-36.5); MEAN CORPUSCULAR VOLUME 79.6 fl (80.0-96.0); MONO # 0.4 10^3/uL (0.0-0.8); MONO % 5.4 % (2.0-8.0); NEUTROPHILS % 75.8 % (36.0-66.0); PLATELET COUNT, AUTOMATED 241 10^3/uL (150-450); WHITE BLOOD COUNT 7.9 10^3/uL (4.0-10.0)
[2023-10-07 06:50] LABS: BLOOD UREA NITROGEN 25 MG/DL (9-23); CARBON DIOXIDE LEVEL 29 MMOL/L (20-31); CHLORIDE LEVEL 104 MMOL/L (98-107); CREATININE FOR GFR 1.26 MG/DL (0.70-1.30); GLOMERULAR FILTRATION RATE > 60.0 (>56); GLUCOSE, FASTING 110 MG/DL (60-100); POTASSIUM SERUM 4.7 MMOL/L (3.5-5.1); SODIUM LEVEL 136 MMOL/L (136-145)
== END 2023-10-07 14:41 | disposition home or self-care (01) | DRG 720 ==
LOC: M ED 09:56 → EDBD 09:56 → M ED INP 13:12 → M PCU 15:39 → M MSPAV 10-06 16:02
PROVIDERS: ADMIT General Practice; ATTEND General Practice
DX: A41.9 Sepsis, unspecified organism (principal); J96.01 Acute respiratory failure with hypoxia; I27.20 Pulmonary hypertension, unspecified; N17.9 Acute kidney failure, unspecified; I11.0 Hypertensive heart disease with heart failure; E66.2 Morbid (severe) obesity with alveolar hypoventilation; Z68.45 Body mass index [BMI] 70 or greater, adult; E87.20 Acidosis, unspecified; I50.30 Unspecified diastolic (congestive) heart failure; I36.0 Nonrheumatic tricuspid (valve) stenosis; E83.51 Hypocalcemia; L98.419 Non-pressure chronic ulcer of buttock with unspecified severity; L03.115 Cellulitis of right lower limb; Z91.119 Patient's noncompliance with dietary regimen due to unspecified reason; G47.33 Obstructive sleep apnea (adult) (pediatric); F17.200 Nicotine dependence, unspecified, uncomplicated; Z88.8 Allergy status to other drugs, medicaments and biological substances; Z79.899 Other long term (current) drug therapy; Z79.01 Long term (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s; Z86.711 Personal history of pulmonary embolism; Z86.718 Personal history of other venous thrombosis and embolism; K44.9 Diaphragmatic hernia without obstruction or gangrene; N50.89 Other specified disorders of the male genital organs

== ENCOUNTER 2023-11-14 05:21 | Inpatient (IN) | payer OTHER ==
[~2023-11-14] VITALS: Ht 185.4 cm; Wt 258.0 kg
[~2023-11-14 05:21] MED LIST changes: +BACI1CAP PO; +DOXY-444 PO
[2023-11-14] MEDS: NS 1,000 ML IV ONE ×2 (06:05)
[2023-11-14 06:07] LABS: VENOUS BASE EXCESS -0.9 (-2.0-2.0); VENOUS HCO3 24.5 MMOL/L (23.0-27.0); VENOUS O2 SATURATION 67.1 % (60.0-80.0); VENOUS PARTIAL PRESSURE CO2 43.7 mmHg (38.0-50.0); VENOUS PARTIAL PRESSURE O2 37.5 mmHg (30.0-50.0); VENOUS PH 7.367 UNITS (7.330-7.430); VENOUS STANDARD HCO3 23.2 MMOL/L; VENOUS TOTAL CO2 25.9 MMOL/L (24.0-28.0)
[2023-11-14 06:07] LABS: BASO % 0.2 % (0.0-1.0); EOS % 0.2 % (0.0-3.0); HEMATOCRIT 35.1 % (42.0-52.0); HEMOGLOBIN 10.4 g/dl (13.5-17.5); LYMPH % 6.5 % (24.0-44.0); MEAN CORPUSCULAR HEMOGLOBIN 23.2 pg (27.0-33.0); MEAN CORPUSCULAR HGB CONC 29.6 g/dl (32.0-36.5); MEAN CORPUSCULAR VOLUME 78.2 fl (80.0-96.0); MONO # 0.7 10^3/uL (0.0-0.8); MONO % 4.3 % (2.0-8.0); NEUTROPHILS # 13.5 10^3/uL (1.5-8.5); NEUTROPHILS % 87.6 % (36.0-66.0); PLATELET COUNT, AUTOMATED 201 10^3/uL (150-450); RED BLOOD COUNT 4.49 10^6/uL (4.30-6.10); WHITE BLOOD COUNT 15.4 10^3/uL (4.0-10.0)
[2023-11-14 06:19] LABS: INR 1.35; PARTIAL THROMBOPLASTIN TIME 30.4 SECONDS (24.8-34.2); PROTHROMBIN TIME 16.2 SECONDS (12.5-14.5)
[2023-11-14 06:35] LABS: ALBUMIN 2.4 G/DL (3.2-5.2); ALKALINE PHOSPHATASE 57 U/L (46-116); ALT/SGPT < 9 U/L (7.0-40); AST/SGOT 16 U/L (<34); BILIRUBIN,DIRECT 0.6 MG/DL (<0.4); BILIRUBIN,TOTAL 1.2 MG/DL (0.3-1.2); BLOOD UREA NITROGEN 11 MG/DL (9-23); CARBON DIOXIDE LEVEL 25 MMOL/L (20-31); CHLORIDE LEVEL 100 MMOL/L (98-107); CK-MB VALUE MASS < 1.0 NG/ML (<3.6); CPK CREATINE PHOSPHOKINASE 62 U/L (46-171); CREATININE FOR GFR 1.23 MG/DL (0.70-1.30); GLOMERULAR FILTRATION RATE > 60.0 (>56); GLUCOSE, FASTING 124 MG/DL (60-100); MB/CK RELATIVE INDEX 1.61 (< OR =4); POTASSIUM SERUM 3.9 MMOL/L (3.5-5.1); SODIUM LEVEL 132 MMOL/L (136-145); TOTAL PROTEIN 6.8 G/DL (5.7-8.2)
[2023-11-14 06:47] LABS: PROCALCITONIN 0.22 ng/ml
[2023-11-14 06:52] LABS: AMYLASE < 20 U/L (30-118)
[2023-11-14] MEDS ORDERED: ISOVUE-370 76% 100ML VIAL As Ordered ONE (07:19)
[2023-11-14] MEDS: ACETAMINOPHEN TAB 650MG DOSE (2X325MG) PO ONE (08:38)
[2023-11-14] MEDS: CEFTAROLINE FOSAMIL 600 MG in D5W MINI-BAG PLUS 50 ML IV ONE (08:38)
[2023-11-14] MEDS ORDERED: HOME MED LIST COMPLETE! XX SCH (09:30)
[2023-11-14 09:54] LABS: CK-MB VALUE MASS < 1.0 NG/ML (<3.6)
[2023-11-14 09:55] LABS: CPK CREATINE PHOSPHOKINASE 59 U/L (46-171); MB/CK RELATIVE INDEX 1.69 (< OR =4)
[2023-11-14] MEDS: INSULIN LISPRO (NovoLOG) PER UNIT SC SCH ×2 (12:00→21:00)
[2023-11-14] MEDS ORDERED: GLUCAGON INJ 1MG VIAL SC PRN (12:10)
[2023-11-14] MEDS ORDERED: DEXTROSE 50% 50ML SYRINGE IV PRN (12:10)
[2023-11-14] MEDS ORDERED: GLUCOSE 4GM CHEW TABLET PO PRN (12:10)
[2023-11-14] MEDS: PIPERACILLIN/TAZOBACTAM SOD 4.5 GM in D5W MINI-BAG PLUS 50 ML IV SCH (12:14)
[2023-11-14 13:01] LABS: HEMOGLOBIN A1c 6.4 % (4.0-6.0)
[2023-11-14] MEDS: VANCOMYCIN HCL 1,000 MG, VIAL MATE ADAPTER 1 EACH in D5W 250 ML IV ONE (14:29)
[2023-11-14] MEDS: APIXABAN 5 MG TAB (ELIQUIS) PO SCH (14:34)
[2023-11-14 16:22] VITALS: BP 146/64; TEMP 98; O2SAT 98
[2023-11-14] MEDS: VANCOMYCIN HCL 1,000 MG, VIAL MATE ADAPTER 1 EACH in D5W 250 ML IV SCH (17:03)
[2023-11-14 19:56] VITALS: BP 118/55; TEMP 97.8; O2SAT 94
[2023-11-14] MEDS: OMEPRAZOLE 20MG CAP PO SCH (20:53)
[2023-11-14] MEDS: MUPIROCIN 2% OINT 22 GM TUBE TOP SCH (23:04)
[2023-11-14 23:45] VITALS: BP 106/59; TEMP 97.6; O2SAT 94
[2023-11-15] MEDS: HYALURONIDASE 15UNIT/ML 1ML SYRINGE (AMPHADASE) SC ONE (01:57)
[2023-11-15 03:34] VITALS: BP 116/59; TEMP 97.2; O2SAT 95
[2023-11-15 05:36] LABS: BASO % 0.1 % (0.0-1.0); EOS # 0.2 10^3/uL (0.0-0.5); EOS % 1.1 % (0.0-3.0); HEMATOCRIT 33.5 % (42.0-52.0); HEMOGLOBIN 9.9 g/dl (13.5-17.5); LYMPH # 0.7 10^3/uL (1.5-5.0); LYMPH % 4.6 % (24.0-44.0); MEAN CORPUSCULAR HGB CONC 29.6 g/dl (32.0-36.5); MEAN CORPUSCULAR VOLUME 77.9 fl (80.0-96.0); MONO # 0.5 10^3/uL (0.0-0.8); MONO % 3.1 % (2.0-8.0); NEUTROPHILS # 13.7 10^3/uL (1.5-8.5); NEUTROPHILS % 89.6 % (36.0-66.0); PLATELET COUNT, AUTOMATED 190 10^3/uL (150-450); WHITE BLOOD COUNT 15.4 10^3/uL (4.0-10.0)
[2023-11-15 05:59] LABS: BLOOD UREA NITROGEN 13 MG/DL (9-23); CALCIUM LEVEL 7.1 MG/DL (8.5-10.1); CARBON DIOXIDE LEVEL 25 MMOL/L (20-31); CHLORIDE LEVEL 104 MMOL/L (98-107); CREATININE FOR GFR 1.21 MG/DL (0.70-1.30); GLOMERULAR FILTRATION RATE > 60.0 (>56); GLUCOSE, FASTING 133 MG/DL (60-100); POTASSIUM SERUM 3.7 MMOL/L (3.5-5.1); SODIUM LEVEL 136 MMOL/L (136-145)
[2023-11-15 08:30] VITALS: BP 136/62; TEMP 97.2; O2SAT 93
[2023-11-15] MEDS: ANEXSIA, NORCO 7.5MG/325MG TABLET(HYDROCODONE/APAP) PO PRN (08:36)
[2023-11-15 13:09] VITALS: BP 130/58; TEMP 97.3; O2SAT 96
[2023-11-15] MEDS: CALCIUM GLUCONATE 1,000 MG in D5W MINI-BAG PLUS 100 ML IV ONE (15:20)
[2023-11-15 19:09] VITALS: BP 128/65; TEMP 97.9; O2SAT 95
[2023-11-15] MEDS: CEPHALEXIN 500 MG CAP PO SCH (20:28)
[2023-11-15] MEDS: LACTIC ACID 12% LOTION 225 GM BTL EXT SCH (20:29)
[2023-11-15] MEDS: CLOTRIMAZOLE 1% TOPICAL CREAM 30GM TOP SCH (20:29)
[2023-11-16] MEDS: OMEPRAZOLE 20MG CAP PO ONE (00:35)
[2023-11-16 03:03] VITALS: BP 136/69; TEMP 97.5; O2SAT 92
[2023-11-16 05:10] LABS: BASO % 0.1 % (0.0-1.0); EOS # 0.2 10^3/uL (0.0-0.5); EOS % 1.5 % (0.0-3.0); HEMATOCRIT 35.3 % (42.0-52.0); HEMOGLOBIN 10.5 g/dl (13.5-17.5); LYMPH # 0.8 10^3/uL (1.5-5.0); LYMPH % 5.6 % (24.0-44.0); MEAN CORPUSCULAR HEMOGLOBIN 23.1 pg (27.0-33.0); MEAN CORPUSCULAR HGB CONC 29.7 g/dl (32.0-36.5); MEAN CORPUSCULAR VOLUME 77.6 fl (80.0-96.0); MONO # 0.6 10^3/uL (0.0-0.8); MONO % 4.5 % (2.0-8.0); NEUTROPHILS # 11.7 10^3/uL (1.5-8.5); NEUTROPHILS % 87.2 % (36.0-66.0); PLATELET COUNT, AUTOMATED 221 10^3/uL (150-450); RED BLOOD COUNT 4.55 10^6/uL (4.30-6.10); WHITE BLOOD COUNT 13.4 10^3/uL (4.0-10.0)
[2023-11-16 05:34] LABS: BLOOD UREA NITROGEN 11 MG/DL (9-23); CALCIUM LEVEL 7.4 MG/DL (8.5-10.1); CARBON DIOXIDE LEVEL 29 MMOL/L (20-31); CHLORIDE LEVEL 104 MMOL/L (98-107); GLOMERULAR FILTRATION RATE > 60.0 (>56); GLUCOSE, FASTING 132 MG/DL (60-100); SODIUM LEVEL 136 MMOL/L (136-145)
[2023-11-16 07:48] LABS: ANTI-STREPTOLYSIN O QUANT 1638.4 IU/ML (<195)
[2023-11-16 08:06] VITALS: BP 135/82; TEMP 96.5; O2SAT 92
[2023-11-16] MEDS: ONDANSETRON 4MG 2ML VIAL IV PRN (14:54)
[2023-11-16 16:11] VITALS: BP 153/75; TEMP 96.7; O2SAT 91
[2023-11-16 19:55] VITALS: BP 142/71; TEMP 97.1; O2SAT 90
[2023-11-16] MEDS ORDERED: CEPH500C PO (20:42)
[2023-11-16] MEDS ORDERED: CLOTR1CR TOP (20:42)
[2023-11-16] MEDS ORDERED: PROB250C PO (20:42)
[2023-11-16] MEDS: OMEPRAZOLE 20MG CAP PO SCH (21:00)
[2023-11-17 05:28] LABS: BASO % 0.2 % (0.0-1.0); EOS # 0.1 10^3/uL (0.0-0.5); EOS % 1.1 % (0.0-3.0); HEMOGLOBIN 10.5 g/dl (13.5-17.5); LYMPH # 0.8 10^3/uL (1.5-5.0); LYMPH % 8.4 % (24.0-44.0); MEAN CORPUSCULAR HEMOGLOBIN 22.8 pg (27.0-33.0); MEAN CORPUSCULAR HGB CONC 29.2 g/dl (32.0-36.5); MEAN CORPUSCULAR VOLUME 78.1 fl (80.0-96.0); MONO # 0.6 10^3/uL (0.0-0.8); MONO % 5.9 % (2.0-8.0); NEUTROPHILS # 8.1 10^3/uL (1.5-8.5); NEUTROPHILS % 83.7 % (36.0-66.0); PLATELET COUNT, AUTOMATED 249 10^3/uL (150-450); RED BLOOD COUNT 4.61 10^6/uL (4.30-6.10); WHITE BLOOD COUNT 9.7 10^3/uL (4.0-10.0)
[2023-11-17 05:36] VITALS: BP 148/76; TEMP 97.5; O2SAT 92
[2023-11-17 05:56] LABS: BLOOD UREA NITROGEN 9 MG/DL (9-23); CALCIUM LEVEL 7.4 MG/DL (8.5-10.1); CARBON DIOXIDE LEVEL 28 MMOL/L (20-31); CHLORIDE LEVEL 104 MMOL/L (98-107); CREATININE FOR GFR 0.93 MG/DL (0.70-1.30); GLOMERULAR FILTRATION RATE > 60.0 (>56); GLUCOSE, FASTING 115 MG/DL (60-100); POTASSIUM SERUM 4.2 MMOL/L (3.5-5.1); SODIUM LEVEL 136 MMOL/L (136-145)
[2023-11-17 08:07] VITALS: BP 171/75; TEMP 96.8; O2SAT 91
[2023-11-18] MEDS ORDERED: CEPH500C PO (18:01)
[2023-11-18] MEDS ORDERED: CVS1CRE56 TOP (18:01)
[2023-11-18] MEDS ORDERED: PROB250C PO (18:01)
== END 2023-11-17 14:21 | disposition home health service (06) | DRG 720 ==
LOC: M ED 05:21 → EDBD 05:21 → M ED INP 08:31 → M PCU 16:22
PROVIDERS: ADMIT General Practice; ATTEND Internal Medicine
DX: A41.9 Sepsis, unspecified organism (principal); E87.20 Acidosis, unspecified; E11.51 Type 2 diabetes mellitus with diabetic peripheral angiopathy without gangrene; E66.2 Morbid (severe) obesity with alveolar hypoventilation; E87.1 Hypo-osmolality and hyponatremia; Z68.45 Body mass index [BMI] 70 or greater, adult; M79.3 Panniculitis, unspecified; F32.A Depression, unspecified; E83.51 Hypocalcemia; A46 Erysipelas; B35.3 Tinea pedis; F17.200 Nicotine dependence, unspecified, uncomplicated; K44.9 Diaphragmatic hernia without obstruction or gangrene; I27.20 Pulmonary hypertension, unspecified; I36.0 Nonrheumatic tricuspid (valve) stenosis; M91.11 Juvenile osteochondrosis of head of femur [Legg-Calve-Perthes], right leg; I87.8 Other specified disorders of veins; I89.0 Lymphedema, not elsewhere classified; Z88.8 Allergy status to other drugs, medicaments and biological substances; Z79.899 Other long term (current) drug therapy; L03.115 Cellulitis of right lower limb; Z86.718 Personal history of other venous thrombosis and embolism; Z86.711 Personal history of pulmonary embolism; Z91.119 Patient's noncompliance with dietary regimen due to unspecified reason; J96.01 Acute respiratory failure with hypoxia; N50.89 Other specified disorders of the male genital organs; Z79.01 Long term (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s; K21.9 Gastro-esophageal reflux disease without esophagitis

== ENCOUNTER 2023-11-18 13:13 | Inpatient (IN) | payer OTHER ==
[~2023-11-18] VITALS: Ht 185.4 cm; Wt 71.6 kg
[~2023-11-18 13:13] MED LIST changes: +CEPH500C PO; +CLOTR1CR TOP; -DOXY150C3 PO; +DOXY150C5 PO; +PROB250C PO
[2023-11-18 14:00] LABS: BASO % 0.2 % (0.0-1.0); EOS # 0.1 10^3/uL (0.0-0.5); EOS % 1.1 % (0.0-3.0); HEMATOCRIT 36.1 % (42.0-52.0); HEMOGLOBIN 10.5 g/dl (13.5-17.5); LYMPH # 1.1 10^3/uL (1.5-5.0); LYMPH % 10.2 % (24.0-44.0); MEAN CORPUSCULAR HEMOGLOBIN 22.8 pg (27.0-33.0); MEAN CORPUSCULAR HGB CONC 29.1 g/dl (32.0-36.5); MEAN CORPUSCULAR VOLUME 78.3 fl (80.0-96.0); MONO # 0.6 10^3/uL (0.0-0.8); MONO % 5.6 % (2.0-8.0); NEUTROPHILS # 8.5 10^3/uL (1.5-8.5); NEUTROPHILS % 81.6 % (36.0-66.0); PLATELET COUNT, AUTOMATED 290 10^3/uL (150-450); RED BLOOD COUNT 4.61 10^6/uL (4.30-6.10); WHITE BLOOD COUNT 10.4 10^3/uL (4.0-10.0)
[2023-11-18 14:35] LABS: ALKALINE PHOSPHATASE 53 U/L (46-116); ALT/SGPT 20 U/L (7.0-40); AST/SGOT 18 U/L (<34); BILIRUBIN,TOTAL 0.5 MG/DL (0.3-1.2); BLOOD UREA NITROGEN 5 MG/DL (9-23); CALCIUM LEVEL 7.6 MG/DL (8.5-10.1); CARBON DIOXIDE LEVEL 30 MMOL/L (20-31); CHLORIDE LEVEL 103 MMOL/L (98-107); CREATININE FOR GFR 0.93 MG/DL (0.70-1.30); GLOMERULAR FILTRATION RATE > 60.0 (>56); GLUCOSE, FASTING 110 MG/DL (60-100); POTASSIUM SERUM 3.8 MMOL/L (3.5-5.1); SODIUM LEVEL 136 MMOL/L (136-145); TOTAL PROTEIN 6.2 G/DL (5.7-8.2)
[2023-11-18] MEDS ORDERED: MOM 30ML SUSPENSION UDC PO PRN (16:00)
[2023-11-18] MEDS ORDERED: ACETAMINOPHEN TAB 650MG DOSE (2X325MG) PO PRN (16:00)
[2023-11-18] MEDS: LACTOBACILLUS ACIDOPHILUS CAP (BACID) PO SCH (17:53)
[2023-11-18] MEDS ORDERED: CEPH500C PO (18:01)
[2023-11-18] MEDS ORDERED: CVS1CRE56 TOP (18:01)
[2023-11-18] MEDS ORDERED: PROB250C PO (18:01)
[2023-11-18] MEDS ORDERED: HOME MED LIST COMPLETE! XX SCH (18:05)
[2023-11-18] MEDS: NYSTATIN 100,000 UNITS/GM TOPICAL PWD 15GM TOP SCH (21:00)
[2023-11-18] MEDS: CLOTRIMAZOLE 1% TOPICAL CREAM 30GM TOP SCH (21:00)
[2023-11-18] MEDS: CEPHALEXIN 500 MG CAP PO SCH (22:24)
[2023-11-18 22:47] VITALS: BP 140/77; TEMP 97.5; O2SAT 95
[2023-11-18] MEDS: APIXABAN 5 MG TAB (ELIQUIS) PO SCH (23:21)
[2023-11-18] MEDS: DOCUSATE SODIUM 100MG CAPSULE PO SCH (23:21)
[2023-11-18] MEDS: diphenhydrAMINE 12.5MG/5ML ELIXIR UDC PO PRN (23:22)
[2023-11-19 05:44] VITALS: BP 138/95; TEMP 97.3; O2SAT 95
[2023-11-19 06:26] LABS: HEMATOCRIT 36.8 % (42.0-52.0); HEMOGLOBIN 10.7 g/dl (13.5-17.5); MEAN CORPUSCULAR HEMOGLOBIN 22.8 pg (27.0-33.0); MEAN CORPUSCULAR HGB CONC 29.1 g/dl (32.0-36.5); MEAN CORPUSCULAR VOLUME 78.5 fl (80.0-96.0); PLATELET COUNT, AUTOMATED 329 10^3/uL (150-450); RED BLOOD COUNT 4.69 10^6/uL (4.30-6.10)
[2023-11-19 06:55] LABS: BLOOD UREA NITROGEN 10 MG/DL (9-23); CALCIUM LEVEL 7.5 MG/DL (8.5-10.1); CARBON DIOXIDE LEVEL 29 MMOL/L (20-31); CHLORIDE LEVEL 105 MMOL/L (98-107); CREATININE FOR GFR 0.83 MG/DL (0.70-1.30); GLOMERULAR FILTRATION RATE > 60.0 (>56); GLUCOSE, FASTING 129 MG/DL (60-100); POTASSIUM SERUM 3.7 MMOL/L (3.5-5.1); SODIUM LEVEL 138 MMOL/L (136-145)
[2023-11-19] MEDS: OMEPRAZOLE 20MG CAP PO SCH (08:30)
[2023-11-19 14:00] VITALS: BP 126/60; TEMP 97.9; O2SAT 92
[2023-11-19] MEDS: ANEXSIA, NORCO 7.5MG/325MG TABLET(HYDROCODONE/APAP) PO PRN (20:42)
[2023-11-19 22:00] VITALS: BP 182/80; TEMP 96.8; O2SAT 92
[2023-11-19 23:30] VITALS: BP 139/78
[2023-11-20 06:00] VITALS: BP 170/77; TEMP 96.8; O2SAT 95
[2023-11-20 06:14] LABS: HEMATOCRIT 38.2 % (42.0-52.0); MEAN CORPUSCULAR HEMOGLOBIN 22.7 pg (27.0-33.0); MEAN CORPUSCULAR HGB CONC 28.8 g/dl (32.0-36.5); MEAN CORPUSCULAR VOLUME 78.9 fl (80.0-96.0); PLATELET COUNT, AUTOMATED 350 10^3/uL (150-450); RED BLOOD COUNT 4.84 10^6/uL (4.30-6.10); WHITE BLOOD COUNT 8.7 10^3/uL (4.0-10.0)
[2023-11-20 07:34] VITALS: BP 157/91
[2023-11-20 07:47] LABS: BLOOD UREA NITROGEN 7 MG/DL (9-23); CALCIUM LEVEL 7.6 MG/DL (8.5-10.1); CARBON DIOXIDE LEVEL 29 MMOL/L (20-31); CHLORIDE LEVEL 104 MMOL/L (98-107); CREATININE FOR GFR 0.82 MG/DL (0.70-1.30); GLOMERULAR FILTRATION RATE > 60.0 (>56); GLUCOSE, FASTING 123 MG/DL (60-100); POTASSIUM SERUM 3.8 MMOL/L (3.5-5.1); SODIUM LEVEL 137 MMOL/L (136-145)
[2023-11-20] MEDS: amLODIPine 5 MG TAB PO SCH (08:50)
[2023-11-20 11:04] VITALS: BP 157/89
[2023-11-20] MEDS: FUROSEMIDE 40MG/4ML VIAL IV SCH (11:06)
[2023-11-20 14:00] VITALS: BP 164/86; TEMP 97.3; O2SAT 95
[2023-11-20 20:00] VITALS: BP 155/74; TEMP 96.8; O2SAT 93
[2023-11-21 06:00] VITALS: BP 156/86; TEMP 98; O2SAT 94
[2023-11-21 06:07] LABS: HEMATOCRIT 38.4 % (42.0-52.0); HEMOGLOBIN 11.1 g/dl (13.5-17.5); MEAN CORPUSCULAR HEMOGLOBIN 22.7 pg (27.0-33.0); MEAN CORPUSCULAR HGB CONC 28.9 g/dl (32.0-36.5); MEAN CORPUSCULAR VOLUME 78.4 fl (80.0-96.0); PLATELET COUNT, AUTOMATED 339 10^3/uL (150-450); WHITE BLOOD COUNT 8.1 10^3/uL (4.0-10.0)
[2023-11-21 06:31] LABS: BLOOD UREA NITROGEN 8 MG/DL (9-23); CALCIUM LEVEL 7.6 MG/DL (8.5-10.1); CARBON DIOXIDE LEVEL 29 MMOL/L (20-31); CHLORIDE LEVEL 105 MMOL/L (98-107); CREATININE FOR GFR 0.85 MG/DL (0.70-1.30); GLOMERULAR FILTRATION RATE > 60.0 (>56); GLUCOSE, FASTING 114 MG/DL (60-100); POTASSIUM SERUM 3.9 MMOL/L (3.5-5.1); SODIUM LEVEL 139 MMOL/L (136-145)
[2023-11-21 14:11] VITALS: BP 153/92; TEMP 97.5; O2SAT 95
[2023-11-21 21:15] VITALS: BP 159/83; TEMP 97.3; O2SAT 95
[2023-11-22 05:49] VITALS: BP 158/82; TEMP 96.8; O2SAT 93
[2023-11-22 06:50] LABS: HEMOGLOBIN 10.8 g/dl (13.5-17.5); MEAN CORPUSCULAR HEMOGLOBIN 22.6 pg (27.0-33.0); MEAN CORPUSCULAR HGB CONC 28.4 g/dl (32.0-36.5); MEAN CORPUSCULAR VOLUME 79.5 fl (80.0-96.0); PLATELET COUNT, AUTOMATED 356 10^3/uL (150-450); RED BLOOD COUNT 4.78 10^6/uL (4.30-6.10); WHITE BLOOD COUNT 7.8 10^3/uL (4.0-10.0)
[2023-11-22 07:16] LABS: BLOOD UREA NITROGEN 9 MG/DL (9-23); CALCIUM LEVEL 7.7 MG/DL (8.5-10.1); CARBON DIOXIDE LEVEL 31 MMOL/L (20-31); CHLORIDE LEVEL 105 MMOL/L (98-107); CREATININE FOR GFR 0.86 MG/DL (0.70-1.30); GLOMERULAR FILTRATION RATE > 60.0 (>56); GLUCOSE, FASTING 115 MG/DL (60-100); POTASSIUM SERUM 4.1 MMOL/L (3.5-5.1); SODIUM LEVEL 138 MMOL/L (136-145)
[2023-11-22] MEDS: FUROSEMIDE 40MG/4ML VIAL IV SCH (08:40)
[2023-11-22 15:00] VITALS: BP 143/94; TEMP 97; O2SAT 93
[2023-11-22 22:00] VITALS: BP 155/71; TEMP 97.3; O2SAT 93
[2023-11-23 05:45] VITALS: BP 151/88; TEMP 97; O2SAT 96
[2023-11-23 06:43] LABS: BLOOD UREA NITROGEN 10 MG/DL (9-23); CALCIUM LEVEL 7.6 MG/DL (8.5-10.1); CARBON DIOXIDE LEVEL 25 MMOL/L (20-31); CHLORIDE LEVEL 104 MMOL/L (98-107); CREATININE FOR GFR 0.81 MG/DL (0.70-1.30); GLOMERULAR FILTRATION RATE > 60.0 (>56); GLUCOSE, FASTING 111 MG/DL (60-100); POTASSIUM SERUM 4.7 MMOL/L (3.5-5.1); SODIUM LEVEL 136 MMOL/L (136-145)
[2023-11-23 07:02] LABS: HEMOGLOBIN 11.8 g/dl (13.5-17.5); MEAN CORPUSCULAR HGB CONC 29.5 g/dl (32.0-36.5); MEAN CORPUSCULAR VOLUME 78.1 fl (80.0-96.0); PLATELET COUNT, AUTOMATED 345 10^3/uL (150-450); RED BLOOD COUNT 5.12 10^6/uL (4.30-6.10); WHITE BLOOD COUNT 7.9 10^3/uL (4.0-10.0)
[2023-11-23 07:54] LABS: MAGNESIUM LEVEL 1.5 MG/DL (1.8-2.4)
[2023-11-23 14:00] VITALS: BP 132/88; TEMP 97.5; O2SAT 93
[2023-11-23] MEDS: MAG SULF 1GM/100ML (MAG RUN) 1 GM in IV 1 EA IV SCH (14:28)
[2023-11-23] MEDS: CEPHALEXIN 500 MG CAP PO SCH ×2 (15:18→20:30)
[2023-11-23 21:18] VITALS: BP 153/88; TEMP 97.2; O2SAT 94
[2023-11-24 06:30] LABS: HEMATOCRIT 39.9 % (42.0-52.0); HEMOGLOBIN 11.6 g/dl (13.5-17.5); MEAN CORPUSCULAR HEMOGLOBIN 22.6 pg (27.0-33.0); MEAN CORPUSCULAR HGB CONC 29.1 g/dl (32.0-36.5); MEAN CORPUSCULAR VOLUME 77.8 fl (80.0-96.0); PLATELET COUNT, AUTOMATED 348 10^3/uL (150-450); RED BLOOD COUNT 5.13 10^6/uL (4.30-6.10); WHITE BLOOD COUNT 7.9 10^3/uL (4.0-10.0)
[2023-11-24 06:48] VITALS: BP 145/87; TEMP 97; O2SAT 93
[2023-11-24 13:42] LABS: BLOOD UREA NITROGEN 13 MG/DL (9-23); CARBON DIOXIDE LEVEL 31 MMOL/L (20-31); CHLORIDE LEVEL 101 MMOL/L (98-107); CREATININE FOR GFR 0.84 MG/DL (0.70-1.30); GLOMERULAR FILTRATION RATE > 60.0 (>56); GLUCOSE, FASTING 127 MG/DL (60-100); MAGNESIUM LEVEL 1.9 MG/DL (1.8-2.4); SODIUM LEVEL 135 MMOL/L (136-145)
[2023-11-24 14:00] VITALS: BP 125/80; TEMP 97.9; O2SAT 91
[2023-11-24 21:20] VITALS: BP 146/78; TEMP 97; O2SAT 95
[2023-11-25 05:00] VITALS: BP 137/72; TEMP 96.2; O2SAT 92
[2023-11-25 06:47] LABS: BLOOD UREA NITROGEN 14 MG/DL (9-23); CALCIUM LEVEL 8.6 MG/DL (8.5-10.1); CARBON DIOXIDE LEVEL 33 MMOL/L (20-31); CHLORIDE LEVEL 100 MMOL/L (98-107); CREATININE FOR GFR 0.92 MG/DL (0.70-1.30); GLOMERULAR FILTRATION RATE > 60.0 (>56); GLUCOSE, FASTING 125 MG/DL (60-100); MAGNESIUM LEVEL 1.9 MG/DL (1.8-2.4); POTASSIUM SERUM 4.5 MMOL/L (3.5-5.1); SODIUM LEVEL 135 MMOL/L (136-145)
[2023-11-25 14:00] VITALS: BP 127/77; TEMP 97.5; O2SAT 98
[2023-11-25 20:00] VITALS: BP 158/64; TEMP 96.8; O2SAT 93
[2023-11-26 06:09] VITALS: BP 150/82; TEMP 97.5; O2SAT 95
[2023-11-26 06:34] LABS: BLOOD UREA NITROGEN 18 MG/DL (9-23); CALCIUM LEVEL 8.4 MG/DL (8.5-10.1); CARBON DIOXIDE LEVEL 31 MMOL/L (20-31); CHLORIDE LEVEL 100 MMOL/L (98-107); CREATININE FOR GFR 0.97 MG/DL (0.70-1.30); GLOMERULAR FILTRATION RATE > 60.0 (>56); GLUCOSE, FASTING 121 MG/DL (60-100); MAGNESIUM LEVEL 1.9 MG/DL (1.8-2.4); POTASSIUM SERUM 4.2 MMOL/L (3.5-5.1); SODIUM LEVEL 135 MMOL/L (136-145)
[2023-11-26 14:00] VITALS: BP 125/77; TEMP 97.3; O2SAT 95
[2023-11-26] MEDS: FUROSEMIDE 40 MG TAB PO SCH (17:50)
[2023-11-27 05:31] VITALS: BP 144/99; TEMP 97.2; O2SAT 95
[2023-11-27 06:25] LABS: BLOOD UREA NITROGEN 19 MG/DL (9-23); CALCIUM LEVEL 8.7 MG/DL (8.5-10.1); CARBON DIOXIDE LEVEL 31 MMOL/L (20-31); CHLORIDE LEVEL 101 MMOL/L (98-107); CREATININE FOR GFR 1.01 MG/DL (0.70-1.30); GLOMERULAR FILTRATION RATE > 60.0 (>56); GLUCOSE, FASTING 124 MG/DL (60-100); MAGNESIUM LEVEL 1.8 MG/DL (1.8-2.4); POTASSIUM SERUM 4.2 MMOL/L (3.5-5.1); SODIUM LEVEL 136 MMOL/L (136-145)
[2023-11-28 05:35] VITALS: BP 145/97; TEMP 97.3; O2SAT 94
[2023-11-28 06:08] LABS: BLOOD UREA NITROGEN 18 MG/DL (9-23); CALCIUM LEVEL 9.1 MG/DL (8.5-10.1); CARBON DIOXIDE LEVEL 31 MMOL/L (20-31); CHLORIDE LEVEL 99 MMOL/L (98-107); CREATININE FOR GFR 1.17 MG/DL (0.70-1.30); GLOMERULAR FILTRATION RATE > 60.0 (>56); GLUCOSE, FASTING 127 MG/DL (60-100); POTASSIUM SERUM 4.3 MMOL/L (3.5-5.1); SODIUM LEVEL 134 MMOL/L (136-145)
[2023-11-29 05:49] VITALS: BP 146/91; TEMP 97.3; O2SAT 95
[2023-11-29 06:18] LABS: BLOOD UREA NITROGEN 18 MG/DL (9-23); CALCIUM LEVEL 9.2 MG/DL (8.5-10.1); CARBON DIOXIDE LEVEL 31 MMOL/L (20-31); CHLORIDE LEVEL 100 MMOL/L (98-107); CREATININE FOR GFR 1.16 MG/DL (0.70-1.30); GLOMERULAR FILTRATION RATE > 60.0 (>56); GLUCOSE, FASTING 119 MG/DL (60-100); POTASSIUM SERUM 4.1 MMOL/L (3.5-5.1); SODIUM LEVEL 134 MMOL/L (136-145)
[2023-11-30 06:00] VITALS: BP 130/69; TEMP 97.2; O2SAT 93
[2023-11-30 06:22] LABS: BLOOD UREA NITROGEN 21 MG/DL (9-23); CALCIUM LEVEL 8.7 MG/DL (8.5-10.1); CARBON DIOXIDE LEVEL 31 MMOL/L (20-31); CHLORIDE LEVEL 100 MMOL/L (98-107); CREATININE FOR GFR 1.14 MG/DL (0.70-1.30); GLOMERULAR FILTRATION RATE > 60.0 (>56); GLUCOSE, FASTING 123 MG/DL (60-100); MAGNESIUM LEVEL 1.9 MG/DL (1.8-2.4); POTASSIUM SERUM 4.2 MMOL/L (3.5-5.1); SODIUM LEVEL 136 MMOL/L (136-145)
[2023-11-30 08:26] VITALS: BP 130/69
[2023-11-30] MEDS ORDERED: AMLO1TAB25 PO ×2 (09:52→23:16)
[2023-11-30] MEDS ORDERED: FURO40TA2 PO ×2 (09:52→23:16)
[2023-11-30] MEDS ORDERED: CLOT1CRE56 TOP (23:16)
[2023-11-30] MEDS ORDERED: ROSU10TA6 PO (23:16)
[2023-11-30] MEDS ORDERED: METF500T13 PO (23:16)
[2023-11-30] MEDS ORDERED: LOSA50TA28 PO (23:16)
== END 2023-11-30 14:11 | disposition home or self-care (01) | DRG 58 ==
LOC: EDBD 13:13 → M ED 13:50 → M ED INP 16:00 → M MSPAV 22:27 → OBSVTOIN 11-24 10:37
PROVIDERS: ADMIT Internal Medicine; ATTEND Internal Medicine
DX: R26.81 Unsteadiness on feet (principal); E11.51 Type 2 diabetes mellitus with diabetic peripheral angiopathy without gangrene; I27.20 Pulmonary hypertension, unspecified; M86.452 Chronic osteomyelitis with draining sinus, left femur; E66.2 Morbid (severe) obesity with alveolar hypoventilation; L03.115 Cellulitis of right lower limb; E83.42 Hypomagnesemia; E83.51 Hypocalcemia; E87.70 Fluid overload, unspecified; Z68.44 Body mass index [BMI] 60.0-69.9, adult; I36.0 Nonrheumatic tricuspid (valve) stenosis; A46 Erysipelas; F17.210 Nicotine dependence, cigarettes, uncomplicated; F32.A Depression, unspecified; I10 Essential (primary) hypertension; K44.9 Diaphragmatic hernia without obstruction or gangrene; K76.9 Liver disease, unspecified; R32 Unspecified urinary incontinence; R53.1 Weakness; N50.89 Other specified disorders of the male genital organs; Z86.718 Personal history of other venous thrombosis and embolism; Z86.711 Personal history of pulmonary embolism; Z91.119 Patient's noncompliance with dietary regimen due to unspecified reason; Z88.8 Allergy status to other drugs, medicaments and biological substances; Z79.899 Other long term (current) drug therapy; B35.3 Tinea pedis

== ENCOUNTER 2023-11-30 17:23 | Emergency (ER) | payer OTHER ==
[~2023-11-30] VITALS: Ht 185.4 cm; Wt 258.0 kg
[~2023-11-30 17:23] MED LIST changes: +AMLO1TAB25 PO; +CVS1CRE56 TOP; +FURO40TA2 PO
[2023-11-30 20:19] LABS: BASO # 0.1 10^3/uL (0.0-0.2); BASO % 0.6 % (0.0-1.0); EOS # 0.1 10^3/uL (0.0-0.5); EOS % 0.5 % (0.0-3.0); HEMOGLOBIN 13.7 g/dl (13.5-17.5); LYMPH # 1.7 10^3/uL (1.5-5.0); LYMPH % 13.3 % (24.0-44.0); MEAN CORPUSCULAR HGB CONC 29.8 g/dl (32.0-36.5); MEAN CORPUSCULAR VOLUME 77.3 fl (80.0-96.0); MONO # 0.5 10^3/uL (0.0-0.8); NEUTROPHILS # 10.5 10^3/uL (1.5-8.5); NEUTROPHILS % 81.1 % (36.0-66.0); PLATELET COUNT, AUTOMATED 317 10^3/uL (150-450); RED BLOOD COUNT 5.95 10^6/uL (4.30-6.10); WHITE BLOOD COUNT 12.9 10^3/uL (4.0-10.0)
[2023-11-30 20:29] LABS: INR 1.09; PROTHROMBIN TIME 13.8 SECONDS (12.5-14.5)
[2023-11-30 20:33] LABS: ALKALINE PHOSPHATASE 77 U/L (46-116); ALT/SGPT 20 U/L (7.0-40); AST/SGOT 23 U/L (<34); BILIRUBIN,TOTAL 0.6 MG/DL (0.3-1.2); BLOOD UREA NITROGEN 25 MG/DL (9-23); CALCIUM LEVEL 9.4 MG/DL (8.5-10.1); CARBON DIOXIDE LEVEL 27 MMOL/L (20-31); CHLORIDE LEVEL 97 MMOL/L (98-107); CREATININE FOR GFR 1.14 MG/DL (0.70-1.30); GLOMERULAR FILTRATION RATE > 60.0 (>56); GLUCOSE, FASTING 123 MG/DL (60-100); MAGNESIUM LEVEL 1.8 MG/DL (1.8-2.4); POTASSIUM SERUM 4.3 MMOL/L (3.5-5.1); SODIUM LEVEL 134 MMOL/L (136-145); TOTAL PROTEIN 8.2 G/DL (5.7-8.2)
[2023-11-30] MEDS ORDERED: BISACODYL 5MG TAB PO PRN (22:40)
[2023-11-30] MEDS ORDERED: ACETAMINOPHEN TAB 650MG DOSE (2X325MG) PO PRN (22:40)
[2023-11-30] MEDS: APIXABAN 5 MG TAB (ELIQUIS) PO SCH (23:04)
[2023-11-30] MEDS ORDERED: LOSA50TA28 PO (23:16)
[2023-11-30] MEDS ORDERED: AMLO1TAB25 PO (23:16)
[2023-11-30] MEDS ORDERED: ROSU10TA6 PO (23:16)
[2023-11-30] MEDS ORDERED: METF500T13 PO (23:16)
[2023-11-30] MEDS ORDERED: FURO40TA2 PO (23:16)
[2023-11-30] MEDS ORDERED: CLOT1CRE56 TOP (23:16)
[2023-11-30] MEDS ORDERED: HOME MED LIST COMPLETE! XX SCH (23:20)
[2023-12-01] MEDS ORDERED: ANEXSIA, NORCO 7.5MG/325MG TABLET(HYDROCODONE/APAP) PO PRN (07:35)
[2023-12-01] MEDS: LACTOBACILLUS ACIDOPHILUS CAP (BACID) PO SCH (08:32)
[2023-12-01] MEDS: OMEPRAZOLE 20MG CAP PO SCH (08:32)
[2023-12-01] MEDS: ROSUVASTATIN 10 MG TAB (CRESTOR) PO SCH (08:33)
[2023-12-01 08:34] VITALS: BP 136/67
[2023-12-01] MEDS: LOSARTAN 50MG TABLET PO SCH (08:34)
[2023-12-01] MEDS: FUROSEMIDE 40 MG TAB PO SCH (10:26)
[2023-12-01 12:23] VITALS: BP 128/80; TEMP 96.6; O2SAT 93
== END 2023-12-01 13:47 | disposition short-term general hospital (02) ==
LOC: M ED 17:23
DX: R26.9 Unspecified abnormalities of gait and mobility (principal); E66.01 Morbid (severe) obesity due to excess calories; I10 Essential (primary) hypertension; E11.9 Type 2 diabetes mellitus without complications; K21.9 Gastro-esophageal reflux disease without esophagitis; Z88.6 Allergy status to analgesic agent; Z86.718 Personal history of other venous thrombosis and embolism; Z79.01 Long term (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s; Z79.83 Long term (current) use of bisphosphonates; Z79.4 Long term (current) use of insulin; Z79.899 Other long term (current) drug therapy

== ENCOUNTER 2024-01-06 00:58 | Inpatient (IN) | payer OTHER ==
[~2024-01-06 00:58] MED LIST changes: +CLOT1CRE56 TOP; +DOXY-440 PO; -DOXY-444 PO; +LOSA50TA28 PO; +METF500T13 PO; -ROSU10TA6 PO; +ROSU10TA61 PO
[2024-01-06 02:23] LABS: BASO % 0.1 % (0.0-1.0); EOS # 0.1 10^3/uL (0.0-0.5); EOS % 1.4 % (0.0-3.0); HEMATOCRIT 32.5 % (42.0-52.0); HEMOGLOBIN 9.7 g/dl (13.5-17.5); LYMPH # 0.8 10^3/uL (1.5-5.0); MEAN CORPUSCULAR HEMOGLOBIN 23.3 pg (27.0-33.0); MEAN CORPUSCULAR HGB CONC 29.8 g/dl (32.0-36.5); MEAN CORPUSCULAR VOLUME 77.9 fl (80.0-96.0); MONO # 0.3 10^3/uL (0.0-0.8); MONO % 3.9 % (2.0-8.0); PLATELET COUNT, AUTOMATED 219 10^3/uL (150-450); RED BLOOD COUNT 4.17 10^6/uL (4.30-6.10); WHITE BLOOD COUNT 8.4 10^3/uL (4.0-10.0)
[2024-01-06 02:37] LABS: ANTI-STREPTOLYSIN O QUANT > 1973.7 IU/ML (<195); BLOOD UREA NITROGEN 16 MG/DL (9-23); CALCIUM LEVEL 6.5 MG/DL (8.5-10.1); CARBON DIOXIDE LEVEL 24 MMOL/L (20-31); CHLORIDE LEVEL 102 MMOL/L (98-107); CREATININE FOR GFR 1.16 MG/DL (0.70-1.30); GLOMERULAR FILTRATION RATE > 60.0 (>56); GLUCOSE, FASTING 111 MG/DL (60-100); POTASSIUM SERUM 3.9 MMOL/L (3.5-5.1); SODIUM LEVEL 135 MMOL/L (136-145)
[2024-01-06] MEDS: cefTRIAXone SOD 1 GM in D5W MINI-BAG PLUS 50 ML IV ONE (02:59)
[2024-01-06] MEDS ORDERED: GLUCOSE 4 GM CHEW PO PRN (06:35)
[2024-01-06] MEDS ORDERED: GLUCAGON INJ 1MG VIAL SC PRN (06:35)
[2024-01-06] MEDS ORDERED: DEXTROSE 50% 50ML SYRINGE IV PRN (06:35)
[2024-01-06] MEDS ORDERED: NYST-13 EXT (06:43)
[2024-01-06] MEDS ORDERED: HOME MED LIST COMPLETE! XX SCH (06:45)
[2024-01-06] MEDS: INSULIN LISPRO (NovoLOG) PER UNIT SC SCH ×2 (07:30→21:00)
[2024-01-06 09:16] LABS: BASO % 0.3 % (0.0-1.0); EOS # 0.1 10^3/uL (0.0-0.5); EOS % 1.1 % (0.0-3.0); HEMATOCRIT 31.2 % (42.0-52.0); HEMOGLOBIN 9.4 g/dl (13.5-17.5); LYMPH # 0.7 10^3/uL (1.5-5.0); LYMPH % 8.9 % (24.0-44.0); MEAN CORPUSCULAR HEMOGLOBIN 23.4 pg (27.0-33.0); MEAN CORPUSCULAR HGB CONC 30.1 g/dl (32.0-36.5); MEAN CORPUSCULAR VOLUME 77.8 fl (80.0-96.0); MONO # 0.4 10^3/uL (0.0-0.8); NEUTROPHILS # 6.3 10^3/uL (1.5-8.5); NEUTROPHILS % 84.2 % (36.0-66.0); PLATELET COUNT, AUTOMATED 188 10^3/uL (150-450); RED BLOOD COUNT 4.01 10^6/uL (4.30-6.10); WHITE BLOOD COUNT 7.4 10^3/uL (4.0-10.0)
[2024-01-06 09:40] VITALS: BP 137/60; TEMP 97.9; O2SAT 94
[2024-01-06 09:41] LABS: ALBUMIN 2.2 G/DL (3.2-5.2); BLOOD UREA NITROGEN 15 MG/DL (9-23); CALCIUM LEVEL 6.4 MG/DL (8.5-10.1); CARBON DIOXIDE LEVEL 27 MMOL/L (20-31); CHLORIDE LEVEL 104 MMOL/L (98-107); CREATININE FOR GFR 1.08 MG/DL (0.70-1.30); GLOMERULAR FILTRATION RATE > 60.0 (>56); GLUCOSE, FASTING 109 MG/DL (60-100); POTASSIUM SERUM 3.9 MMOL/L (3.5-5.1); SODIUM LEVEL 138 MMOL/L (136-145)
[2024-01-06] MEDS: LACTOBACILLUS ACIDOPHILUS CAP (BACID) PO SCH (11:46)
[2024-01-06] MEDS: APIXABAN 5 MG TAB (ELIQUIS) PO SCH (11:46)
[2024-01-06] MEDS: MAG SULF 1GM/100ML (MAG RUN) 1 GM in IV 1 EA IV SCH ×2 (11:46→19:30)
[2024-01-06 13:47] VITALS: BP 128/61; TEMP 97.3; O2SAT 92
[2024-01-06] MEDS: LACTIC ACID 12% LOTION 225 GM BTL TOP SCH (14:43)
[2024-01-06] MEDS: FUROSEMIDE 40MG/4ML VIAL IV SCH (14:43)
[2024-01-06] MEDS: diphenhydrAMINE 50MG CAP PO ONE (16:23)
[2024-01-06] MEDS: cefTRIAXone SOD 2 GM in D5W MINI-BAG PLUS 50 ML IV SCH (18:17)
[2024-01-06 21:00] VITALS: BP 129/74; TEMP 97.3; O2SAT 93
[2024-01-06] MEDS: OMEPRAZOLE 20MG CAP PO SCH (21:03)
[2024-01-07] MEDS ORDERED: cefTRIAXone SOD 1 GM in D5W MINI-BAG PLUS 50 ML IV SCH
[2024-01-07 06:00] VITALS: BP 101/62; TEMP 96.1; O2SAT 90
[2024-01-07 06:17] LABS: BASO % 0.3 % (0.0-1.0); EOS # 0.1 10^3/uL (0.0-0.5); EOS % 1.3 % (0.0-3.0); HEMATOCRIT 32.6 % (42.0-52.0); HEMOGLOBIN 9.8 g/dl (13.5-17.5); LYMPH # 0.9 10^3/uL (1.5-5.0); LYMPH % 12.5 % (24.0-44.0); MEAN CORPUSCULAR HEMOGLOBIN 23.4 pg (27.0-33.0); MEAN CORPUSCULAR HGB CONC 30.1 g/dl (32.0-36.5); MEAN CORPUSCULAR VOLUME 77.8 fl (80.0-96.0); MONO # 0.4 10^3/uL (0.0-0.8); MONO % 5.4 % (2.0-8.0); NEUTROPHILS % 79.7 % (36.0-66.0); PLATELET COUNT, AUTOMATED 220 10^3/uL (150-450); RED BLOOD COUNT 4.19 10^6/uL (4.30-6.10); WHITE BLOOD COUNT 7.5 10^3/uL (4.0-10.0)
[2024-01-07 06:40] LABS: MAGNESIUM LEVEL 1.5 MG/DL (1.8-2.4)
[2024-01-07 08:24] LABS: BLOOD UREA NITROGEN 12 MG/DL (9-23); CALCIUM LEVEL 6.8 MG/DL (8.5-10.1); CARBON DIOXIDE LEVEL 27 MMOL/L (20-31); CHLORIDE LEVEL 104 MMOL/L (98-107); CREATININE FOR GFR 1.08 MG/DL (0.70-1.30); GLOMERULAR FILTRATION RATE > 60.0 (>56); GLUCOSE, FASTING 109 MG/DL (60-100); POTASSIUM SERUM 3.7 MMOL/L (3.5-5.1); SODIUM LEVEL 137 MMOL/L (136-145)
[2024-01-07] MEDS: MAG SULF 1GM/100ML (MAG RUN) 1 GM in IV 1 EA IV SCH ×2 (08:32→11:48)
[2024-01-07] MEDS: ANEXSIA, NORCO 7.5MG/325MG TABLET(HYDROCODONE/APAP) PO PRN (10:47)
[2024-01-07] MEDS: diphenhydrAMINE 25MG CAP PO PRN (10:59)
[2024-01-07] MEDS: POTASSIUM CHLORIDE 10MEQ SR TABLET PO STA (11:47)
[2024-01-07 14:00] VITALS: BP 107/64; TEMP 97.5; O2SAT 92
[2024-01-07] MEDS: NYSTATIN CREAM 15GM EXT PRN (18:14)
[2024-01-07 21:11] VITALS: BP 140/79; TEMP 96.8; O2SAT 94
[2024-01-08 06:13] VITALS: BP 139/82; TEMP 97.2; O2SAT 92
[2024-01-08 06:15] LABS: BASO % 0.3 % (0.0-1.0); EOS # 0.1 10^3/uL (0.0-0.5); EOS % 1.8 % (0.0-3.0); HEMATOCRIT 34.8 % (42.0-52.0); LYMPH # 1.1 10^3/uL (1.5-5.0); MEAN CORPUSCULAR HEMOGLOBIN 22.5 pg (27.0-33.0); MEAN CORPUSCULAR HGB CONC 28.7 g/dl (32.0-36.5); MEAN CORPUSCULAR VOLUME 78.4 fl (80.0-96.0); MONO # 0.6 10^3/uL (0.0-0.8); MONO % 7.8 % (2.0-8.0); NEUTROPHILS # 5.2 10^3/uL (1.5-8.5); NEUTROPHILS % 73.1 % (36.0-66.0); PLATELET COUNT, AUTOMATED 244 10^3/uL (150-450); RED BLOOD COUNT 4.44 10^6/uL (4.30-6.10); WHITE BLOOD COUNT 7.1 10^3/uL (4.0-10.0)
[2024-01-08 06:48] LABS: BLOOD UREA NITROGEN 11 MG/DL (9-23); CALCIUM LEVEL 7.4 MG/DL (8.5-10.1); CARBON DIOXIDE LEVEL 29 MMOL/L (20-31); CHLORIDE LEVEL 107 MMOL/L (98-107); CREATININE FOR GFR 1.02 MG/DL (0.70-1.30); GLOMERULAR FILTRATION RATE > 60.0 (>56); GLUCOSE, FASTING 105 MG/DL (60-100); MAGNESIUM LEVEL 1.9 MG/DL (1.8-2.4); POTASSIUM SERUM 3.8 MMOL/L (3.5-5.1); SODIUM LEVEL 140 MMOL/L (136-145)
[2024-01-08] MEDS: MAGNESIUM OXIDE 400MG TAB (MAG-OX) PO SCH (10:59)
[2024-01-08] MEDS: POTASSIUM CHLORIDE 10MEQ SR TABLET PO STA (10:59)
[2024-01-08 14:00] VITALS: BP 130/80; TEMP 97; O2SAT 94
[2024-01-08] MEDS: CALCIUM CARBONATE 500 MG CHEW U/D PO STA (15:22)
[2024-01-08] MEDS: ONDANSETRON 4MG 2ML VIAL IV PRN (15:22)
[2024-01-08 15:36] LABS: HEMOGLOBIN A1c 5.6 % (4.0-6.0)
[2024-01-08 21:17] VITALS: BP 131/78; TEMP 97.5; O2SAT 93
[2024-01-08 21:41] VITALS: BP 131/78
[2024-01-09 06:13] LABS: BASO % 0.4 % (0.0-1.0); EOS # 0.1 10^3/uL (0.0-0.5); EOS % 1.7 % (0.0-3.0); HEMATOCRIT 35.9 % (42.0-52.0); HEMOGLOBIN 10.5 g/dl (13.5-17.5); LYMPH # 1.1 10^3/uL (1.5-5.0); LYMPH % 14.5 % (24.0-44.0); MEAN CORPUSCULAR HEMOGLOBIN 23.3 pg (27.0-33.0); MEAN CORPUSCULAR HGB CONC 29.2 g/dl (32.0-36.5); MEAN CORPUSCULAR VOLUME 79.6 fl (80.0-96.0); MONO # 0.6 10^3/uL (0.0-0.8); MONO % 7.2 % (2.0-8.0); NEUTROPHILS # 5.8 10^3/uL (1.5-8.5); PLATELET COUNT, AUTOMATED 270 10^3/uL (150-450); RED BLOOD COUNT 4.51 10^6/uL (4.30-6.10); WHITE BLOOD COUNT 7.7 10^3/uL (4.0-10.0)
[2024-01-09 06:15] VITALS: BP 137/76; TEMP 97; O2SAT 94
[2024-01-09 06:38] LABS: BLOOD UREA NITROGEN 11 MG/DL (9-23); CALCIUM LEVEL 7.8 MG/DL (8.5-10.1); CARBON DIOXIDE LEVEL 28 MMOL/L (20-31); CHLORIDE LEVEL 103 MMOL/L (98-107); CREATININE FOR GFR 0.96 MG/DL (0.70-1.30); GLOMERULAR FILTRATION RATE > 60.0 (>56); GLUCOSE, FASTING 110 MG/DL (60-100); POTASSIUM SERUM 4.1 MMOL/L (3.5-5.1); SODIUM LEVEL 138 MMOL/L (136-145)
[2024-01-09 14:00] VITALS: BP 135/76; TEMP 97.3; O2SAT 94
[2024-01-09 21:00] VITALS: BP 126/73; TEMP 97.7; O2SAT 94
[2024-01-10 05:57] LABS: BASO % 0.4 % (0.0-1.0); EOS # 0.1 10^3/uL (0.0-0.5); EOS % 1.3 % (0.0-3.0); HEMATOCRIT 37.5 % (42.0-52.0); HEMOGLOBIN 10.7 g/dl (13.5-17.5); LYMPH # 1.4 10^3/uL (1.5-5.0); LYMPH % 19.5 % (24.0-44.0); MEAN CORPUSCULAR HEMOGLOBIN 22.7 pg (27.0-33.0); MEAN CORPUSCULAR HGB CONC 28.5 g/dl (32.0-36.5); MEAN CORPUSCULAR VOLUME 79.6 fl (80.0-96.0); MONO # 0.4 10^3/uL (0.0-0.8); MONO % 5.8 % (2.0-8.0); NEUTROPHILS # 5.1 10^3/uL (1.5-8.5); NEUTROPHILS % 71.4 % (36.0-66.0); PLATELET COUNT, AUTOMATED 303 10^3/uL (150-450); RED BLOOD COUNT 4.71 10^6/uL (4.30-6.10); WHITE BLOOD COUNT 7.1 10^3/uL (4.0-10.0)
[2024-01-10 06:09] VITALS: BP_SYST 127; TEMP 97; O2SAT 95
[2024-01-10 06:28] LABS: BLOOD UREA NITROGEN 12 MG/DL (9-23); CALCIUM LEVEL 7.9 MG/DL (8.5-10.1); CARBON DIOXIDE LEVEL 29 MMOL/L (20-31); CHLORIDE LEVEL 104 MMOL/L (98-107); CREATININE FOR GFR 1.02 MG/DL (0.70-1.30); GLOMERULAR FILTRATION RATE > 60.0 (>56); GLUCOSE, FASTING 110 MG/DL (60-100); MAGNESIUM LEVEL 1.9 MG/DL (1.8-2.4); POTASSIUM SERUM 4.2 MMOL/L (3.5-5.1); SODIUM LEVEL 140 MMOL/L (136-145)
[2024-01-10] MEDS ORDERED: LAC-LOT2 TOP (10:34)
[2024-01-10] MEDS ORDERED: PROB250C PO (10:34)
[2024-01-10] MEDS ORDERED: CEFA500C2 PO (10:34)
[2024-01-10] MEDS ORDERED: MAGN400T2 PO (10:34)
[2024-01-10] MEDS ORDERED: TORS20TA2 PO (10:34)
[2024-01-10] MEDS ORDERED: BENA25CA4 PO (10:47)
== END 2024-01-10 15:06 | disposition home health service (06) | DRG 383 ==
LOC: M ED 00:58 → M ED INP 06:08 → M MSPAV 09:41
PROVIDERS: ADMIT Family Medicine; ATTEND Internal Medicine
DX: L03.115 Cellulitis of right lower limb (principal); E11.51 Type 2 diabetes mellitus with diabetic peripheral angiopathy without gangrene; E66.01 Morbid (severe) obesity due to excess calories; E83.42 Hypomagnesemia; Z68.45 Body mass index [BMI] 70 or greater, adult; E78.5 Hyperlipidemia, unspecified; F17.210 Nicotine dependence, cigarettes, uncomplicated; G47.33 Obstructive sleep apnea (adult) (pediatric); I10 Essential (primary) hypertension; I89.0 Lymphedema, not elsewhere classified; K21.9 Gastro-esophageal reflux disease without esophagitis; Z79.01 Long term (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s; Z86.718 Personal history of other venous thrombosis and embolism; Z86.711 Personal history of pulmonary embolism; L50.8 Other urticaria; Z88.8 Allergy status to other drugs, medicaments and biological substances; Z79.899 Other long term (current) drug therapy; K44.9 Diaphragmatic hernia without obstruction or gangrene; N50.89 Other specified disorders of the male genital organs

== ENCOUNTER 2024-10-30 23:57 | Emergency (ER) | payer MEDICAID, OTHER ==
[~2024-10-30] VITALS: Ht 185.4 cm; Wt 237.0 kg
[~2024-10-30 23:57] MED LIST changes: +BENA25CA4 PO; +CEFA500C2 PO; +CLOT15CR4 TOP; -CVS1CRE56 TOP; +LAC-LOT2 TOP; +MAGN400T2 PO; +NYST-13 EXT; +TORS20TA2 PO
[2024-10-31 03:39] LABS: BASO % 0.4 % (0.0-1.0); EOS # 0.2 10^3/uL (0.0-0.5); EOS % 1.6 % (0.0-3.0); HEMATOCRIT 39.7 % (42.0-52.0); HEMOGLOBIN 12.2 g/dl (13.5-17.5); LYMPH # 1.9 10^3/uL (1.5-5.0); LYMPH % 20.3 % (24.0-44.0); MEAN CORPUSCULAR HEMOGLOBIN 25.4 pg (27.0-33.0); MEAN CORPUSCULAR HGB CONC 30.7 g/dl (32.0-36.5); MEAN CORPUSCULAR VOLUME 82.7 fl (80.0-96.0); MONO # 0.5 10^3/uL (0.0-0.8); MONO % 4.8 % (2.0-8.0); NEUTROPHILS # 6.8 10^3/uL (1.5-8.5); NEUTROPHILS % 72.5 % (36.0-66.0); PLATELET COUNT, AUTOMATED 262 10^3/uL (150-450); WHITE BLOOD COUNT 9.4 10^3/uL (4.0-10.0)
[2024-10-31 03:45] LABS: ERYTHROCYTE SEDIMENTATION RATE 91 mm/hr (0-20)
[2024-10-31 04:01] LABS: BLOOD UREA NITROGEN 12 MG/DL (9-23); C REACTIVE PROTEIN QUANTITATIV 6.13 MG/DL (<1.0); CALCIUM LEVEL 7.5 MG/DL (8.5-10.1); CARBON DIOXIDE LEVEL 24 MMOL/L (20-31); CHLORIDE LEVEL 107 MMOL/L (98-107); CREATININE FOR GFR 0.98 MG/DL (0.70-1.30); GLOMERULAR FILTRATION RATE > 60.0 (>56); GLUCOSE, FASTING 159 MG/DL (60-100); POTASSIUM SERUM 3.8 MMOL/L (3.5-5.1); SODIUM LEVEL 140 MMOL/L (136-145)
[2024-10-31] MEDS ORDERED: ISOVUE-370 76% 100ML VIAL As Ordered ONE (04:06)
[2024-10-31] MEDS: PIPERACILLIN/TAZOBACTAM SOD 4.5 GM in DEXTROSE 5% (D5W) ADV/MINI-BAG 50 ML IV ONE (05:53)
[2024-10-31] MEDS ORDERED: ALBU8.5H INH (06:26)
[2024-10-31] MEDS ORDERED: HOME MED LIST COMPLETE! XX SCH (06:30)
[2024-10-31] MEDS: NS 500 ML IV ONE (06:32)
[2024-10-31] MEDS ORDERED: METR-265 PO (10:19)
[2024-10-31] MEDS: DALBAVANCIN 1,500 MG in D5W 250 ML IV ONE (11:29)
[2024-10-31 15:39] VITALS: BP 137/75; TEMP 96.4; O2SAT 99
== END 2024-10-31 15:42 | disposition home or self-care (01) ==
LOC: M ED 23:57 → EDBD 23:57 → M ED 10-31 15:42
DX: N49.2 Inflammatory disorders of scrotum (principal); M79.3 Panniculitis, unspecified; E66.01 Morbid (severe) obesity due to excess calories; G47.33 Obstructive sleep apnea (adult) (pediatric); K21.9 Gastro-esophageal reflux disease without esophagitis; I10 Essential (primary) hypertension; E78.5 Hyperlipidemia, unspecified; F17.200 Nicotine dependence, unspecified, uncomplicated; Z86.718 Personal history of other venous thrombosis and embolism; Z79.01 Long term (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s; Z79.2 Long term (current) use of antibiotics; Z88.8 Allergy status to other drugs, medicaments and biological substances; Z79.52 Long term (current) use of systemic steroids; Z79.899 Other long term (current) drug therapy
CPT/HCPCS: 72193; 80048; 84145; 85025; 85652; 86140; 96361; 96365; 96376; 99285; J0875; J2543; Q9967

== ENCOUNTER 2025-07-06 23:24 | Observation (INO) | payer OTHER ==
[~2025-07-06] VITALS: Ht 185.4 cm; Wt 238.6 kg
[~2025-07-06 23:24] MED LIST changes: +ALBU8.5H INH; +LEVO75TAB PO; +MAG30ORA18 PO; +METR-265 PO; -MYLASSUD PO; -NYST-13 EXT; +NYST0.1C EXT; +NYST1POW3 TOP; +PROBCAP14 PO; -ROSU10TA61 PO; +ROSU10TA90 PO
[2025-07-07 06:05] LABS: BASO # 0.1 10^3/uL (0.0-0.2); BASO % 0.4 % (0.0-1.0); EOS # 0.2 10^3/uL (0.0-0.5); EOS % 1.9 % (0.0-3.0); LYMPH # 2.2 10^3/uL (1.5-5.0); LYMPH % 17.1 % (24.0-44.0); MONO # 0.6 10^3/uL (0.0-0.8); MONO % 4.8 % (2.0-8.0); NEUTROPHILS # 9.4 10^3/uL (1.5-8.5); NEUTROPHILS % 74.1 % (36.0-66.0); PLATELET COUNT, AUTOMATED 378 10^3/uL (150-450)
[2025-07-07 06:28] LABS: INR 1.08
[2025-07-07] MEDS ORDERED: HOME MED LIST COMPLETE! XX SCH (08:45)
[2025-07-07 09:05] LABS: ALT/SGPT 45.0 U/L (7.0-40); AST/SGOT 41.0 U/L (<34); CALCIUM LEVEL 8.1 MG/DL (8.5-10.1); CARBON DIOXIDE LEVEL 28.0 MMOL/L (20-31); CHLORIDE LEVEL 99.0 MMOL/L (98-107); CREATININE FOR GFR 1.05 MG/DL (0.70-1.30); GLOMERULAR FILTRATION RATE 85.4 (>56); POTASSIUM SERUM 4.1 MMOL/L (3.5-5.1); SODIUM LEVEL 137.0 MMOL/L (136-145)
[2025-07-07] MEDS: SANTYL OINT 30GM TOP SCH (16:32)
[2025-07-07] MEDS: APIXABAN 5 MG TAB PO SCH (21:11)
[2025-07-08 06:00] VITALS: BP 145/70; TEMP 97.3; O2SAT 95
[2025-07-08] MEDS: OMEPRAZOLE 20MG CAP PO SCH (09:29)
[2025-07-09 05:05] VITALS: BP 144/66; TEMP 98.1; O2SAT 98
[2025-07-10 06:49] VITALS: BP 146/65; TEMP 97.3; O2SAT 94
[2025-07-11 06:41] VITALS: BP 156/67; TEMP 97.7; O2SAT 95
[2025-07-12 07:08] VITALS: BP 162/72; TEMP 97.2; O2SAT 94
[2025-07-13 06:53] VITALS: BP 154/69; TEMP 97; O2SAT 95
== END 2025-07-13 12:45 | disposition home or self-care (01) ==
LOC: M ED 23:24 → M ED INP 23:25 → M MS5PR 07-07 15:15
PROVIDERS: ADMIT Student in an Organized Health Care Education/Training Program; ATTEND Student in an Organized Health Care Education/Training Program
DX: M25.552 Pain in left hip (principal); R53.81 Other malaise; M19.90 Unspecified osteoarthritis, unspecified site; E66.01 Morbid (severe) obesity due to excess calories; L98.4 Non-pressure chronic ulcer of skin, not elsewhere classified; M79.3 Panniculitis, unspecified; Z86.711 Personal history of pulmonary embolism; Z79.01 Long term (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s; E11.9 Type 2 diabetes mellitus without complications; I73.9 Peripheral vascular disease, unspecified; G47.33 Obstructive sleep apnea (adult) (pediatric); K44.9 Diaphragmatic hernia without obstruction or gangrene; R16.2 Hepatomegaly with splenomegaly, not elsewhere classified; Z79.899 Other long term (current) drug therapy